=== PATIENT | male | born 1935 | race Caucasian/White ===

== ENCOUNTER 2016-09-04 05:31 | Inpatient (IN) | payer MEDICARE, OTHER ==
--- NOTE | 2016-09-04 05:37 | C.PDOC ---
History Of Present Illness patient called 911 because of shortness of breath., No cp or palpitations. reeived 1 duoneb and 125 mg IV solumedrol. No f/c/n/v Speaking in 3-4 word sentences Time Seen by Provider: 09/04/16 05:36 History Per: Patient, EMS History/Exam Limitations: no limitations Onset/Duration Of Symptoms: Hrs Current Symptoms Are (Timing): Worse Initiating Event: Upper Respiratory Illness Quality: Tightness Exacerbating Factor(s): Exertion, Coughing Current Respiratory Medications: See Home Med List Severity: Severe Pain Scale Rating Of: 8 Associated Symptoms: denies: Fever, Chills Reports Recently: Seen In ED, Treated By A Physician Recent travel outside of the [place]: No Additional History Per: EMS Past Medical History Reviewed: Historical Data, Nursing Documentation, Vital Signs Vital Signs: Last Vital Signs Temp 97.8 F 09/04/16 05:48 Pulse 108 H 09/04/16 05:48 Resp 28 H 09/04/16 06:05 BP 135/75 09/04/16 05:48 Pulse Ox 88 L 09/04/16 05:48 - Medical History PMH: Diabetes, HTN Denies: Arthritis, CHF, COPD, HIV, Hypercholesterolemia, Hypothyroidism, Chronic Kidney Disease, Rheumatoid Arthritis Family History: States: No Known Family Hx - Social History Hx Alcohol Use: No Hx Substance Use: No Review Of Systems Constitutional: Negative for: Fever, Chills ENT: Negative for: Throat Pain Cardiovascular: Positive for: Edema (trace). Negative for: Chest Pain, Palpitations Respiratory: Positive for: Cough, Shortness of Breath, Wheezing Gastrointestinal: Negative for: Nausea, Vomiting, Abdominal Pain Genitourinary: Negative for: Dysuria Musculoskeletal: Negative for: Back Pain Skin: Negative for: Rash, Lesions, Jaundice Neurological: Negative for: Weakness Psych: Negative for: Anxiety Physical Exam - Physical Exam Appears: In Acute Distress Skin: Warm, Dry Head: Normacephalic Oral Mucosa: Moist Neck: Supple Chest: Symmetrical Cardiovascular: Rhythm Regular Respiratory: Decreased Breath Sounds, No Rales, Rhonchi, Wheezing (at bases) Gastrointestinal/Abdominal: Soft, No Tenderness, No Distention Back: No Vertebral Tenderness Extremity: No Tenderness, Pedal Edema (trace) Extremity: Bilateral: Atraumatic, Normal Color And Temperature Neurological/Psych: Oriented x3, Normal Speech, Normal Cognition Gait: Unable To Assess ED Course And Treatment ECG: Interpreted By Me, Viewed By Me ECG Rhythm: Sinus Rhythm (102), Nonspecific Changes (old ant wall mi) Pulse Ox Interpretation: Normal - Radiology CXR: Interpreted by Me, Viewed By Me CXR Interpretation: Yes: Infiltrates (rll), Cardiomegaly, Other (chf) Progress Note: blood work, nebs Critical Care Time - Critical Care Note Total Time (in mins): 35 Documented critical care: time excludes all time spent performing seperately billable procedures. Disposition Counseled Patient/Family Regarding: Studies Performed, Diagnosis - Disposition Disposition Time: 07:00 Condition: UNKNOWN - Clinical Impression Clinical Impression: Pulmonary edema
[2016-09-04 05:39] VITALS: BMI 25.8
[2016-09-04] MEDS: Albuterol-Ipratrop 3 mg / 0.5 (3 ml) UD IH SCH ×3 (05:45→05:56)
[2016-09-04] MEDS ORDERED: Albuterol-Ipratrop 3 mg / 0.5 (3 ml) UD ONE (05:52)
[2016-09-04 06:16] LABS: ABG ALLEN TEST POS; DRAW SITE RRAD
[2016-09-04] MEDS ORDERED: Piperacillin/Tazobact 3.375 gm 100 ML IVPB STA (06:56)
[2016-09-04 06:59] LABS: POTASSIUM 5.5 mmol/L (3.6-5.2)
[2016-09-04 07:01] LABS: BILIRUBIN,TOTAL 0.7 mg/dL (0.2-1.3)
[2016-09-04 07:02] LABS: ALB/GLOB RATIO 1.2 (1.0-2.1); CALCIUM 8.2 mg/dl (8.6-10.4); MAGNESIUM 2.2 mg/dL (1.6-2.3); TOTAL PROTEIN 7.3 g/dL (6.3-8.3)
[2016-09-04 07:05] LABS: BASO # 0.1 K/uL (0.0-0.2); BASO % 0.4 % (0.0-2.0); EOS # 0.3 K/uL (0.0-0.7); EOS % 1.9 % (0.0-4.0); HEMATOCRIT 33.4 % (35.0-51.0); LYMPH % 20.1 % (20.0-40.0); MEAN CELL VOLUME 93.1 fL (80.0-94.0); MEAN CORPUSCULAR HEMOGLOBIN 31.1 pg (27.0-31.0); MEAN CORPUSCULAR HGB CONC 33.4 g/dL (33.0-37.0); MEAN PLATELET VOLUME 8.6 fL (7.2-11.7); MONO # 0.7 K/uL (0.0-0.8); MONO % 4.4 % (0.0-10.0); RED CELL DISTRIBUTION WIDTH 13.9 % (11.5-14.5); WHITE BLOOD COUNT 15.1 K/uL (4.8-10.8)
[2016-09-04 07:18] LABS: TROPONIN I 0.221 ng/mL (0.00-0.120)
[2016-09-04] MEDS ORDERED: Piperacillin/Tazobact 3.375 gm 100 ML IVPB ONE (07:22)
[2016-09-04] MEDS ORDERED: Sod Polystyrene Sulf 15 gm/60 ml Oral Susp PO ONE (07:29)
[2016-09-04] MEDS ORDERED: Sod Polystyrene Sulf 15 gm/60 ml Oral Susp ONE (08:15)
[2016-09-04 10:36] LABS: RBC URINE < 1 /hpf (0-3); URINE BACTERIA RARE (<OCC); URINE BILIRUBIN NEGATIVE (NEGATIVE); URINE COLOR Yellow (YELLOW); URINE GLUCOSE (UA) 1+ mg/dL (Normal); URINE KETONE NEGATIVE (NEGATIVE); URINE PROTEIN 2+ mg/dL (NEGATIVE); URINE UROBILINOGEN NORMAL mg/dL (0.2-1.0); WBC URINE 9 /hpf (0-5)
[2016-09-04 10:37] LABS: URINE BLOOD TRACE (NEGATIVE); URINE LEUKOCYTE ESTERASE 1+ Leu/uL (Negative)
--- NOTE | 2016-09-04 10:39 | CP.PCM.HP ---
History of Present Illness - History of Present Illness History of Present Illness: 81 years old male patient with past medical history of diabetes hypertension security meningioma brought in by 911 with complaint of shortness of breath required BiPAP support. No complaint of chest pain palpitation No fever vomiting diarrhea lower limb swelling Started on IV Solu-Medrol In ER chest x-ray suggestive of right lower lobe infiltrates, changes suggestive of CHF. Present on Admission - Present on Admission Any Indicators Present on Admission: No Past Patient History - Past Medical History & Family History Past Medical History?: Yes - Past Social History Smoking Status: Former Smoker - CARDIAC Hx Congestive Heart Failure: No Hx Hypercholesterolemia: No Hx Hypertension: Yes - PULMONARY Hx Chronic Obstructive Pulmonary Disease (COPD): No - NEUROLOGICAL HX Cerebrovascular Accident: No - HEENT Hx Cataracts: Yes (with surgery done and IOL) - RENAL Hx Chronic Kidney Disease: No - ENDOCRINE/METABOLIC Hx Hypothyroidism: No - HEMATOLOGICAL/ONCOLOGICAL Hx Human Immunodeficiency Virus (HIV): No - INTEGUMENTARY Hx Dermatological Problems: No - MUSCULOSKELETAL/RHEUMATOLOGICAL Hx Arthritis: No Hx Rheumatoid Arthritis: No - GASTROINTESTINAL Hx Gastrointestinal Disorders: No - GENITOURINARY/GYNECOLOGICAL Hx Genitourinary Disorders: No - PSYCHIATRIC Hx Substance Use: No - SURGICAL HISTORY Hx Surgeries: Yes Other/Comment: Bilateral neck surgery carotid artery - ANESTHESIA Hx Anesthesia: Yes Hx Anesthesia Reactions: No Meds Home Medications: Home Medication List Medication Instructions Recorded Confirmed Type Albuterol/Ipratropium [Duoneb 3 3 ml INH RQ6 09/23/16 Rx mg/0.5 mg (3 ml) UD] Aspirin 325 mg PO DAILY tab 09/23/16 Rx Carvedilol [Coreg] 3.125 mg PO BID tab 09/23/16 Rx Insulin Glargine, Recombina 30 unit SC DAILY unit 09/23/16 Rx [Lantus] Rosuvastatin Calcium [Crestor] 10 mg PO HS tab 09/23/16 Rx Allergies/Adverse Reactions: Allergies Allergy/AdvReac Type Severity Reaction Status Date / Time No Known Allergies Allergy Verified 10/06/16 18:56 Physical Exam - Constitutional Appears: Well - Head Exam Head Exam: ATRAUMATIC, NORMAL INSPECTION, NORMOCEPHALIC - Eye Exam Eye Exam: EOMI, Normal appearance, PERRL Pupil Exam: NORMAL ACCOMODATION, PERRL - ENT Exam ENT Exam: Mucous Membranes Moist, Normal Exam - Neck Exam Neck exam: Positive for: Normal Inspection - Respiratory Exam Respiratory Exam: Decreased Breath Sounds - Cardiovascular Exam Cardiovascular Exam: REGULAR RHYTHM, +S1, +S2 - GI/Abdominal Exam GI & Abdominal Exam: Diminished Bowel Sounds, Soft - Rectal Exam Rectal Exam: Deferred Results - Vital Signs Recent Vital Signs: Last Vital Signs Temp 98.3 F 09/04/16 10:19 Pulse 93 H 09/04/16 10:19 Resp 18 09/04/16 10:19 BP 143/70 09/04/16 10:19 Pulse Ox 100 09/04/16 10:19 - Labs Result Diagrams: 09/18/16 06:00 09/21/16 08:03 Labs: Laboratory Results - last 24 hr 09/04/16 10:19 Urine Color Yellow Urine Clarity Clear Urine pH 5.0 Ur Specific [place] 1.009 Urine Protein 2+ H Urine Glucose (UA) 1+ H Urine Ketones Negative Urine Blood Trace H Urine Nitrate Negative Urine Bilirubin Negative Urine Urobilinogen Normal Ur Leukocyte Esterase 1+ H Urine WBC (Auto) 9 H Urine RBC (Auto) < 1 Ur Squamous Epith Cells < 1 Urine Bacteria Rare Assessment & Plan (1) Cardiorenal syndrome with renal failure Status: Acute (2) DVT prophylaxis Status: Acute (3) ESRD (end stage renal disease) Status: Acute (4) HTN (hypertension), benign Status: Acute (5) NSTEMI (non-ST elevation myocardial infarction) Status: Acute (6) Renal failure Status: Acute (7) Respiratory failure with hypoxia Status: Acute (8) Syncope Status: Acute (9) Visit for wound check Status: Acute (10) Acute kidney injury superimposed on CKD Status: Chronic (11) Brain mass Status: Chronic (12) DM2 (diabetes mellitus, type 2) Status: Chronic (13) HTN (hypertension) Status: Chronic - Assessment and Plan (Free Text) Plan: avelox prilosec lovenox lasix duoneb advair insulin cardiac ada diet cardio consult pulm consult chest x ray ossible pneumonia iv lasix and other med as ordered
--- NOTE | 2016-09-04 11:26 | RAD ---
PROCEDURE: CHEST RADIOGRAPH, 1 VIEW HISTORY: SOB COMPARISON: No prior study available for comparison. FINDINGS: LUNGS: Diffuse bilateral predominately interstitial appearing infiltrates rosy. Rule out pneumonia versus pulmonary vascular congestion/ CHF. Underlying fibrosis not excluded PLEURA: No pneumothorax or pleural fluid seen. CARDIOVASCULAR: Normal. OSSEOUS STRUCTURES: No significant abnormalities. VISUALIZED UPPER ABDOMEN: Normal. OTHER FINDINGS: None. IMPRESSION: Diffuse bilateral predominately interstitial appearing infiltrates rosy. Rule out pneumonia versus pulmonary vascular congestion/ CHF. Underlying fibrosis not excluded
[2016-09-04] MEDS ORDERED: Sodium Chloride 0.9% 1,000 ML ONE (13:16)
[2016-09-04] MEDS: (Novolog) Insulin Aspart, Recombinant 100 u/ml 10 ml vial SC SCH ×2 (17:46→21:22)
[2016-09-04] MEDS: Albuterol-Ipratrop 3 mg / 0.5 (3 ml) UD INH SCH (20:56)
[2016-09-04] MEDS: Insulin Detemir 100 units/ml Vial (Levemir) SC SCH ×2 (21:22→22:00)
--- NOTE | 2016-09-04 23:23 | CP.PCM.CON ---
History of Present Illness - History of Present Illness History of Present Illness: 81 year old with DM, HTN, CKD, meningeoma, admitted with P edema, responded to treatment. however his BNP, TNI were elevated, no CP, no acute EKG changes. last Echo about 1year with NL LV no , with NSTEMI on asa b tony, statin f/ u echo Review of Systems - Review of Systems Systems not reviewed;Unavailable: Respiratory Distress - Constitutional Constitutional: Anorexia - EENT Eyes: absent: Discharge Ears: absent: Ear Discharge Nose/Mouth/Throat: absent: Epistaxis - Cardiovascular Cardiovascular: Diaphoresis. absent: Acrocyanosis, Chest Pain, Leg Edema, Palpitations, Syncope - Respiratory Respiratory: Cough, Dyspnea. absent: Hemoptysis - Gastrointestinal Gastrointestinal: absent: Diarrhea, Hematochezia, Vomiting - Genitourinary Genitourinary: absent: Change in Urinary Stream Past Patient History - Past Medical History & Family History Past Medical History?: Yes - Past Social History Smoking Status: Never Smoked - CARDIAC Hx Cardiac Disorders: No Hx Congestive Heart Failure: No Hx Hypercholesterolemia: No Hx Hypertension: Yes - PULMONARY Hx Respiratory Disorders: No Hx Chronic Obstructive Pulmonary Disease (COPD): No - NEUROLOGICAL Hx Neurological Disorder: No HX Cerebrovascular Accident: No - HEENT Hx HEENT Problems: Yes Hx Cataracts: Yes (with surgery done and IOL) - RENAL Hx Chronic Kidney Disease: No - ENDOCRINE/METABOLIC Hx Endocrine Disorders: No - HEMATOLOGICAL/ONCOLOGICAL Hx Blood Disorders: No Hx Human Immunodeficiency Virus (HIV): No - INTEGUMENTARY Hx Dermatological Problems: No - MUSCULOSKELETAL/RHEUMATOLOGICAL Hx Musculoskeletal Disorders: No Hx Arthritis: No Hx Rheumatoid Arthritis: No - GASTROINTESTINAL Hx Gastrointestinal Disorders: No - GENITOURINARY/GYNECOLOGICAL Hx Genitourinary Disorders: No - PSYCHIATRIC Hx Substance Use: No - SURGICAL HISTORY Hx Surgeries: Yes Other/Comment: Bilateral neck surgery carotid artery - ANESTHESIA Hx Anesthesia: Yes Hx Anesthesia Reactions: No Meds Allergies/Adverse Reactions: Allergies Allergy/AdvReac Type Severity Reaction Status Date / Time No Known Allergies Allergy Verified 09/04/16 06:02 - Medications Medications: Current Medications Albuterol/Ipratropium (Duoneb 3 Mg/0.5 Mg (3 Ml) Ud) 3 ml INH RQ6 [facility] Last Admin: 09/04/16 20:56 Dose: 3 ml Allopurinol (Zyloprim) 100 mg PO DAILY [facility] Amlodipine Besylate (Norvasc) 5 mg PO DAILY [facility] Aspirin (Aspirin Chewable) 81 mg PO DAILY [facility] Carvedilol (Coreg) 12.5 mg PO BID [facility] Last Admin: 09/04/16 17:40 Dose: 12.5 mg Cyclobenzaprine HCl (Flexeril) 10 mg PO BID [facility] Last Admin: 09/04/16 17:40 Dose: 10 mg Duloxetine HCl (Cymbalta) 30 mg PO DAILY [facility] Enoxaparin Sodium (Lovenox) 30 mg SC DAILY [facility] Escitalopram Oxalate (Lexapro) 10 mg PO DAILY [facility] Famotidine (Pepcid) 20 mg PO DAILY [facility] Furosemide (Lasix) 80 mg IVP DAILY [facility] Gabapentin (Neurontin) 300 mg PO TID [facility] Last Admin: 09/04/16 17:40 Dose: 300 mg Moxifloxacin HCl (Avelox Iv 400mg/250ml Ns) 250 mls @ 167 mls/hr IVPB Q24H [facility] Insulin Aspart (Novolog) 0 unit SC ACHS [facility] PRN Reason: Protocol Last Admin: 09/04/16 21:22 Dose: 6 unit Insulin Detemir (Levemir) 16 unit SC [facility] Last Admin: 09/04/16 21:22 Dose: 1 unit Isosorbide Mononitrate (Imdur) 60 mg PO DAILY [facility] Levothyroxine Sodium (Synthroid) 50 mcg PO DAILY@0630 [facility] Pantoprazole Sodium (Protonix Ec Tab) 40 mg PO DAILY [facility] Rosuvastatin Calcium (Crestor) 10 mg PO HS [facility] Last Admin: 09/04/16 21:22 Dose: 10 mg Sevelamer Carbonate (Renvela) 800 mg PO TID [facility] Last Admin: 09/04/16 17:40 Dose: 800 mg Physical Exam - Constitutional Appears: Non-toxic - Head Exam Head Exam: ATRAUMATIC - Eye Exam Eye Exam: EOMI - ENT Exam ENT Exam: Mucous Membranes Moist - Neck Exam Neck exam: Negative for: Lymphadenopathy, Thyromegaly - Respiratory Exam Respiratory Exam: Prolonged Expiratory Phase, Rales, Wheezes - Cardiovascular Exam Cardiovascular Exam: REGULAR RHYTHM, Systolic Murmur - GI/Abdominal Exam GI & Abdominal Exam: Normal Bowel Sounds. absent: Organomegaly - Rectal Exam Rectal Exam: Deferred - Extremities Exam Extremities exam: Positive for: normal capillary refill. Negative for: calf tenderness - Neurological Exam Neurological exam: Alert, Oriented x3 - Psychiatric Exam Psychiatric exam: Normal Mood - Skin Skin Exam: Dry Results - Vital Signs Recent Vital Signs: Last Vital Signs Temp 98.3 F 09/04/16 10:19 Pulse 104 H 09/04/16 20:59 Resp 22 09/04/16 17:22 BP 148/76 09/04/16 22:25 Pulse Ox 92 L 09/04/16 17:22 - Labs Result Diagrams: 09/07/16 21:04 09/07/16 21:04 Labs: Laboratory Results - last 24 hr 09/04/16 09/04/16 09/04/16 10:19 15:28 17:36 POC Glucose (mg/dL) 422 H* Total Creatine Kinase 107 CK-MB (Mass) 4.99 H Troponin I, Quant 1.9300 H* Urine Color Yellow Urine Clarity Clear Urine pH 5.0 Ur Specific [place] 1.009 Urine Protein 2+ H Urine Glucose (UA) 1+ H Urine Ketones Negative Urine Blood Trace H Urine Nitrate Negative Urine Bilirubin Negative Urine Urobilinogen Normal Ur Leukocyte Esterase 1+ H Urine WBC (Auto) 9 H Urine RBC (Auto) < 1 Ur Squamous Epith Cells < 1 Urine Bacteria Rare 09/04/16 21:09 POC Glucose (mg/dL) 468 H* Total Creatine Kinase CK-MB (Mass) Troponin I, Quant Urine Color Urine Clarity Urine pH Ur Specific [place] Urine Protein Urine Glucose (UA) Urine Ketones Urine Blood Urine Nitrate Urine Bilirubin Urine Urobilinogen Ur Leukocyte Esterase Urine WBC (Auto) Urine RBC (Auto) Ur Squamous Epith Cells Urine Bacteria Assessment & Plan (1) NSTEMI (non-ST elevation myocardial infarction) Status: Acute Comment: medical treatment, observe CKD (2) Pulmonary edema Status: Acute Comment: proble acute over chronic LV diastolic r/o syst. failure (3) Acute kidney injury superimposed on CKD Status: Chronic (4) Brain mass Status: Chronic (5) DM2 (diabetes mellitus, type 2) Status: Chronic (6) HTN (hypertension) Status: Chronic
[2016-09-05] MEDS: Albuterol-Ipratrop 3 mg / 0.5 (3 ml) UD INH SCH ×4 (01:16→19:57)
[2016-09-05] MEDS ORDERED: (Novolog) Insulin Aspart, Recombinant 100 u/ml 10 ml vial SC ONE (02:47)
[2016-09-05] MEDS: Levothyroxine 50 MCG TAB PO SCH (06:47)
--- NOTE | 2016-09-05 07:42 | CP.PCM.PN ---
Subjective - Date & Time of Evaluation Date of Evaluation: 09/05/16 Time of Evaluation: 05:00 - Subjective Subjective: 81 M a/w interstitial lung edema, NSTEMI, CRI, uncontrolled DM, ? brain mass, was evaluated as getting hypoxic when removing NRB mask for coughing and then being hypoxic. CXR reviewed overnight pt also been given lasix x2 by resident and on exam diffuse b/l wheezing. Patient initially started on Bipap 12/6/100% then titrated to 12/6/50%, tidal volume about 450, now comfortable, no cp, overnight urinated about 700ml. Repeat CXR still shows interstitial edema, will give schedule lasix early. Primary team will be notified of the events by the nursing. Objective - Vital Signs/Intake and Output Vital Signs (last 24 hours): Temp Pulse Resp BP Pulse Ox 97.6 F 97 H 20 134/75 97 09/05/16 00:30 09/05/16 06:32 09/05/16 00:30 09/05/16 03:40 09/05/16 03:40 Intake and Output: 09/05/16 09/05/16 06:59 18:59 Intake Total 350 Output Total 1450 850 Balance -1450 -500 - Medications Medications: Current Medications Albuterol/Ipratropium (Duoneb 3 Mg/0.5 Mg (3 Ml) Ud) 3 ml INH RQ6 [facility] Last Admin: 09/05/16 01:16 Dose: 3 ml Allopurinol (Zyloprim) 100 mg PO DAILY [facility] Amlodipine Besylate (Norvasc) 5 mg PO DAILY [facility] Aspirin (Aspirin Chewable) 81 mg PO DAILY [facility] Carvedilol (Coreg) 12.5 mg PO BID [facility] Last Admin: 09/04/16 17:40 Dose: 12.5 mg Cyclobenzaprine HCl (Flexeril) 10 mg PO BID [facility] Last Admin: 09/04/16 17:40 Dose: 10 mg Duloxetine HCl (Cymbalta) 30 mg PO DAILY [facility] Enoxaparin Sodium (Lovenox) 30 mg SC DAILY [facility] Escitalopram Oxalate (Lexapro) 10 mg PO DAILY [facility] Famotidine (Pepcid) 20 mg PO DAILY [facility] Furosemide (Lasix) 80 mg IVP DAILY [facility] Gabapentin (Neurontin) 300 mg PO TID [facility] Last Admin: 04/07/17 17:40 Dose: 300 mg Moxifloxacin HCl (Avelox Iv 400mg/250ml Ns) 250 mls @ 167 mls/hr IVPB Q24H [facility] Insulin Aspart (Novolog) 0 unit SC ACHS [facility] PRN Reason: Protocol Last Admin: 09/04/16 21:22 Dose: 6 unit Insulin Detemir (Levemir) 16 unit SC [facility] Last Admin: 09/04/16 22:00 Dose: 16 unit Isosorbide Mononitrate (Imdur) 60 mg PO DAILY [facility] Levothyroxine Sodium (Synthroid) 50 mcg PO DAILY@0630 [facility] Last Admin: 09/05/16 06:47 Dose: 50 mcg Pantoprazole Sodium (Protonix Ec Tab) 40 mg PO DAILY [facility] Rosuvastatin Calcium (Crestor) 10 mg PO [facility] Last Admin: 09/04/16 23:52 Dose: Not Given Sevelamer Carbonate (Renvela) 800 mg PO TID [facility] Last Admin: 09/04/16 17:40 Dose: 800 mg - Labs Labs: PT 11.2 SECONDS (9.7-12.2) 09/04/16 06:40 INR 1.0 09/04/16 06:40 APTT 33 SECONDS (21-34) 09/04/16 06:40
[2016-09-05] MEDS: (Novolog) Insulin Aspart, Recombinant 100 u/ml 10 ml vial SC SCH ×4 (08:00→21:37)
[2016-09-05] MEDS ORDERED: INSULIN LISPRO 2 UNIT SQ SCH (10:00)
--- NOTE | 2016-09-05 10:03 | RAD ---
HISTORY: sob COMPARISON: 09/04/2016 FINDINGS: LUNGS: Diffuse prominent increased interstitial lung markings suggestive for moderate to severe venous congestion and/or diffuse increased interstitial infiltrates. Question small bilateral pleural effusions. PLEURA: As above. CARDIOVASCULAR: Cardiomegaly. Calcification at the aortic knob. OSSEOUS STRUCTURES: No significant abnormalities. VISUALIZED UPPER ABDOMEN: Normal. OTHER FINDINGS: None. IMPRESSION: Diffuse prominent increased interstitial lung markings suggestive for moderate to severe venous congestion and/or diffuse increased interstitial infiltrates. Question small bilateral pleural effusions.
[2016-09-05] MEDS: Pantoprazole 40 mg EC Tab PO SCH (10:04)
[2016-09-05] MEDS: Enoxaparin 30 mg Syringe SC SCH (10:05)
--- NOTE | 2016-09-05 15:01 | CP.PCM.PN ---
Subjective - Date & Time of Evaluation Date of Evaluation: 09/05/16 Time of Evaluation: 02:40 - Subjective Subjective: clinically same s/p dr iqbal Objective - Vital Signs/Intake and Output Vital Signs (last 24 hours): Temp Pulse Resp BP Pulse Ox 97.5 F L 94 H 18 150/78 96 09/05/16 07:40 09/05/16 07:40 09/05/16 07:40 09/05/16 10:06 09/05/16 07:40 Intake and Output: 09/05/16 09/05/16 06:59 18:59 Intake Total 350 Output Total 1450 1700 Balance -1450 -1350 - Medications Medications: Current Medications Albuterol/Ipratropium (Duoneb 3 Mg/0.5 Mg (3 Ml) Ud) 3 ml INH RQ6 [facility] Last Admin: 09/05/16 07:30 Dose: 3 ml Allopurinol (Zyloprim) 100 mg PO DAILY [facility] Last Admin: 09/05/16 10:04 Dose: 100 mg Amlodipine Besylate (Norvasc) 5 mg PO DAILY [facility] Last Admin: 09/05/16 10:00 Dose: 5 mg Aspirin (Aspirin Chewable) 81 mg PO DAILY [facility] Last Admin: 09/05/16 10:04 Dose: 81 mg Carvedilol (Coreg) 12.5 mg PO BID [facility] Last Admin: 09/05/16 10:03 Dose: 12.5 mg Cyclobenzaprine HCl (Flexeril) 10 mg PO BID [facility] Last Admin: 09/05/16 10:03 Dose: 10 mg Duloxetine HCl (Cymbalta) 30 mg PO DAILY [facility] Last Admin: 09/05/16 10:06 Dose: 30 mg Enoxaparin Sodium (Lovenox) 30 mg SC DAILY [facility] Last Admin: 09/05/16 10:05 Dose: 30 mg Escitalopram Oxalate (Lexapro) 10 mg PO DAILY [facility] Last Admin: 09/05/16 10:06 Dose: 10 mg Famotidine (Pepcid) 20 mg PO DAILY [facility] Last Admin: 09/05/16 10:03 Dose: 20 mg Furosemide (Lasix) 80 mg IVP DAILY [facility] Last Admin: 09/05/16 10:06 Dose: 80 mg Gabapentin (Neurontin) 300 mg PO TID [facility] Last Admin: 09/05/16 13:59 Dose: 300 mg Moxifloxacin HCl (Avelox Iv 400mg/250ml Ns) 250 mls @ 167 mls/hr IVPB Q24H [facility] Insulin Aspart (Novolog) 0 unit SC [facility] PRN Reason: Protocol Last Admin: 09/05/16 11:30 Dose: 6 unit Insulin Detemir (Levemir) 16 unit SC [facility] Last Admin: 09/04/16 22:00 Dose: 16 unit Isosorbide Mononitrate (Imdur) 60 mg PO DAILY [facility] Last Admin: 09/05/16 10:05 Dose: 60 mg Levothyroxine Sodium (Synthroid) 50 mcg PO DAILY@0630 [facility] Last Admin: 09/05/16 06:47 Dose: 50 mcg Pantoprazole Sodium (Protonix Ec Tab) 40 mg PO DAILY [facility] Last Admin: 09/05/16 10:04 Dose: 40 mg Rosuvastatin Calcium (Crestor) 10 mg PO [facility] Last Admin: 09/04/16 23:52 Dose: Not Given Sevelamer Carbonate (Renvela) 800 mg PO TID [facility] Last Admin: 09/05/16 13:58 Dose: 800 mg - Labs Labs: PT 11.2 SECONDS (9.7-12.2) 09/04/16 06:40 INR 1.0 09/04/16 06:40 APTT 33 SECONDS (21-34) 09/04/16 06:40 - Constitutional Appears: Well - Head Exam Head Exam: ATRAUMATIC, NORMAL INSPECTION, NORMOCEPHALIC - Eye Exam Eye Exam: EOMI, Normal appearance, PERRL Pupil Exam: NORMAL ACCOMODATION, PERRL - ENT Exam ENT Exam: Mucous Membranes Moist, Normal Exam - Neck Exam Neck Exam: Full ROM, Normal Inspection. absent: Lymphadenopathy - Respiratory Exam Respiratory Exam: Decreased Breath Sounds - Cardiovascular Exam Cardiovascular Exam: REGULAR RHYTHM, +S1, +S2 - GI/Abdominal Exam GI & Abdominal Exam: Soft, Diminished Bowel Sounds - Rectal Exam Rectal Exam: Deferred - Neurological Exam Neurological Exam: Alert, Oriented x3 Assessment and Plan (1) Cardiorenal syndrome with renal failure Status: Acute (2) DVT prophylaxis Status: Acute (3) ESRD (end stage renal disease) Status: Acute (4) HTN (hypertension), benign Status: Acute (5) NSTEMI (non-ST elevation myocardial infarction) Status: Acute (6) Renal failure Status: Acute (7) Respiratory failure with hypoxia Status: Acute (8) Syncope Status: Acute (9) Visit for wound check Status: Acute (10) Acute kidney injury superimposed on CKD Status: Chronic (11) Brain mass Status: Chronic (12) DM2 (diabetes mellitus, type 2) Status: Chronic (13) HTN (hypertension) Status: Chronic - Assessment and Plan (Free Text) Plan: dr farida rutledge mx as ordered f/u labs bipap support as required
--- NOTE | 2016-09-05 16:10 | CP.PCM.PN ---
Subjective - Date & Time of Evaluation Date of Evaluation: 09/05/16 Time of Evaluation: 14:00 - Subjective Subjective: With shortness of breath overnight observe follow-up with echo, on oxygen supplement follow-up with pulmonary Objective - Vital Signs/Intake and Output Vital Signs (last 24 hours): Temp Pulse Resp BP Pulse Ox 97.3 F L 89 19 138/65 97 09/05/16 16:08 09/05/16 16:08 09/05/16 16:08 09/05/16 16:08 09/05/16 16:08 Intake and Output: 09/05/16 09/05/16 06:59 18:59 Intake Total 350 Output Total 1450 1700 Balance -1450 -1350 - Medications Medications: Current Medications Albuterol/Ipratropium (Duoneb 3 Mg/0.5 Mg (3 Ml) Ud) 3 ml INH RQ6 [facility] Last Admin: 09/05/16 07:30 Dose: 3 ml Allopurinol (Zyloprim) 100 mg PO DAILY [facility] Last Admin: 09/05/16 10:04 Dose: 100 mg Amlodipine Besylate (Norvasc) 5 mg PO DAILY [facility] Last Admin: 09/05/16 10:00 Dose: 5 mg Aspirin (Aspirin Chewable) 81 mg PO DAILY [facility] Last Admin: 09/05/16 10:04 Dose: 81 mg Carvedilol (Coreg) 12.5 mg PO BID [facility] Last Admin: 09/05/16 10:03 Dose: 12.5 mg Cyclobenzaprine HCl (Flexeril) 10 mg PO BID [facility] Last Admin: 09/05/16 10:03 Dose: 10 mg Duloxetine HCl (Cymbalta) 30 mg PO DAILY [facility] Last Admin: 09/05/16 10:06 Dose: 30 mg Enoxaparin Sodium (Lovenox) 30 mg SC DAILY [facility] Last Admin: 09/05/16 10:05 Dose: 30 mg Escitalopram Oxalate (Lexapro) 10 mg PO DAILY [facility] Last Admin: 09/05/16 10:06 Dose: 10 mg Famotidine (Pepcid) 20 mg PO DAILY [facility] Last Admin: 09/05/16 10:03 Dose: 20 mg Furosemide (Lasix) 80 mg IVP DAILY [facility] Last Admin: 09/05/16 10:06 Dose: 80 mg Gabapentin (Neurontin) 300 mg PO TID [facility] Last Admin: 09/05/16 13:59 Dose: 300 mg Moxifloxacin HCl (Avelox Iv 400mg/250ml Ns) 250 mls @ 167 mls/hr IVPB Q24H [facility] Insulin Aspart (Novolog) 0 unit SC ACHS [facility] PRN Reason: Protocol Last Admin: 09/05/16 11:30 Dose: 6 unit Insulin Detemir (Levemir) 16 unit SC [facility] Last Admin: 09/04/16 22:00 Dose: 16 unit Isosorbide Mononitrate (Imdur) 60 mg PO DAILY [facility] Last Admin: 09/05/16 10:05 Dose: 60 mg Levothyroxine Sodium (Synthroid) 50 mcg PO DAILY@0630 [facility] Last Admin: 09/05/16 06:47 Dose: 50 mcg Pantoprazole Sodium (Protonix Ec Tab) 40 mg PO DAILY [facility] Last Admin: 09/05/16 10:04 Dose: 40 mg Rosuvastatin Calcium (Crestor) 10 mg PO [facility] Last Admin: 09/04/16 23:52 Dose: Not Given Sevelamer Carbonate (Renvela) 800 mg PO TID [facility] Last Admin: 09/05/16 13:58 Dose: 800 mg - Labs Labs: PT 11.2 SECONDS (9.7-12.2) 09/04/16 06:40 INR 1.0 09/04/16 06:40 APTT 33 SECONDS (21-34) 09/04/16 06:40 - Constitutional Appears: Non-toxic - Head Exam Head Exam: ATRAUMATIC - Eye Exam Eye Exam: EOMI - ENT Exam ENT Exam: Mucous Membranes Moist - Neck Exam Neck Exam: absent: Lymphadenopathy, Thyromegaly - Respiratory Exam Respiratory Exam: Prolonged Expiratory Phase. absent: Rales - Cardiovascular Exam Cardiovascular Exam: REGULAR RHYTHM, Murmur - GI/Abdominal Exam GI & Abdominal Exam: Normal Bowel Sounds. absent: Organomegaly - Rectal Exam Rectal Exam: Deferred - Extremities Exam Extremities Exam: Normal Capillary Refill. absent: Calf Tenderness - Neurological Exam Neurological Exam: Alert, Oriented x3 - Psychiatric Exam Psychiatric exam: Normal Mood - Skin Skin Exam: Dry Assessment and Plan (1) NSTEMI (non-ST elevation myocardial infarction) Status: Acute (2) Pulmonary edema Status: Acute (3) Acute kidney injury superimposed on CKD Status: Chronic (4) Brain mass Status: Chronic (5) DM2 (diabetes mellitus, type 2) Status: Chronic (6) HTN (hypertension) Status: Chronic
[2016-09-05] MEDS: Moxifloxacin IV 400mg/250ml NS 250 ML IVPB SCH (16:30)
--- NOTE | 2016-09-05 20:27 | CP.PCM.CON ---
History of Present Illness - History of Present Illness History of Present Illness: reason for consultation: shortness of breath requiring BiPAP 81 year old with DM, HTN, CKD, meningeoma, admitted with Shortness of breath requiring BiPAP. Patient found to have elevated troponins and seen by cardiology with diagnosis of non-ST elevation IN. Patient complaining of slight cough but denies fever or chills, denies chest pain. Chest x-ray consistent with CHF. Review of Systems - Review of Systems All systems: reviewed and no additional remarkable complaints except (shortness of breath requiring BiPAP) Past Patient History - Past Medical History & Family History Past Medical History?: Yes - Past Social History Smoking Status: Never Smoked - CARDIAC Hx Cardiac Disorders: No Hx Congestive Heart Failure: No Hx Hypercholesterolemia: No Hx Hypertension: Yes - PULMONARY Hx Respiratory Disorders: No Hx Chronic Obstructive Pulmonary Disease (COPD): No - NEUROLOGICAL Hx Neurological Disorder: No HX Cerebrovascular Accident: No - HEENT Hx HEENT Problems: Yes Hx Cataracts: Yes (with surgery done and IOL) - RENAL Hx Chronic Kidney Disease: No - ENDOCRINE/METABOLIC Hx Endocrine Disorders: No - HEMATOLOGICAL/ONCOLOGICAL Hx Blood Disorders: No Hx Human Immunodeficiency Virus (HIV): No - INTEGUMENTARY Hx Dermatological Problems: No - MUSCULOSKELETAL/RHEUMATOLOGICAL Hx Musculoskeletal Disorders: No Hx Arthritis: No Hx Rheumatoid Arthritis: No - GASTROINTESTINAL Hx Gastrointestinal Disorders: No - GENITOURINARY/GYNECOLOGICAL Hx Genitourinary Disorders: No - PSYCHIATRIC Hx Substance Use: No - SURGICAL HISTORY Hx Surgeries: Yes Other/Comment: Bilateral neck surgery carotid artery - ANESTHESIA Hx Anesthesia: Yes Hx Anesthesia Reactions: No Meds Allergies/Adverse Reactions: Allergies Allergy/AdvReac Type Severity Reaction Status Date / Time No Known Allergies Allergy Verified 09/04/16 06:02 - Medications Medications: Current Medications Albuterol/Ipratropium (Duoneb 3 Mg/0.5 Mg (3 Ml) Ud) 3 ml INH RQ6 [facility] Last Admin: 09/05/16 19:57 Dose: 3 ml Allopurinol (Zyloprim) 100 mg PO DAILY [facility] Last Admin: 09/05/16 10:04 Dose: 100 mg Amlodipine Besylate (Norvasc) 5 mg PO DAILY [facility] Last Admin: 09/05/16 10:00 Dose: 5 mg Aspirin (Aspirin Chewable) 81 mg PO DAILY [facility] Last Admin: 04/08/17 10:04 Dose: 81 mg Carvedilol (Coreg) 12.5 mg PO BID [facility] Last Admin: 09/05/16 17:24 Dose: 12.5 mg Cyclobenzaprine HCl (Flexeril) 10 mg PO BID [facility] Last Admin: 09/05/16 17:24 Dose: 10 mg Duloxetine HCl (Cymbalta) 30 mg PO DAILY [facility] Last Admin: 09/05/16 10:06 Dose: 30 mg Enoxaparin Sodium (Lovenox) 30 mg SC DAILY [facility] Last Admin: 09/05/16 10:05 Dose: 30 mg Escitalopram Oxalate (Lexapro) 10 mg PO DAILY [facility] Last Admin: 09/05/16 10:06 Dose: 10 mg Famotidine (Pepcid) 20 mg PO DAILY [facility] Last Admin: 09/05/16 10:03 Dose: 20 mg Furosemide (Lasix) 80 mg IVP DAILY [facility] Last Admin: 09/05/16 10:06 Dose: 80 mg Gabapentin (Neurontin) 300 mg PO TID [facility] Last Admin: 09/05/16 17:24 Dose: 300 mg Moxifloxacin HCl (Avelox Iv 400mg/250ml Ns) 250 mls @ 167 mls/hr IVPB Q24H [facility] Last Admin: 09/05/16 16:30 Dose: 167 mls/hr Insulin Aspart (Novolog) 0 unit SC [facility] PRN Reason: Protocol Last Admin: 09/05/16 17:25 Dose: 5 unit Insulin Detemir (Levemir) 16 unit SC [facility] Last Admin: 09/04/16 22:00 Dose: 16 unit Isosorbide Mononitrate (Imdur) 60 mg PO DAILY [facility] Last Admin: 09/05/16 10:05 Dose: 60 mg Levothyroxine Sodium (Synthroid) 50 mcg PO DAILY@0630 [facility] Last Admin: 09/05/16 06:47 Dose: 50 mcg Pantoprazole Sodium (Protonix Ec Tab) 40 mg PO DAILY [facility] Last Admin: 09/05/16 10:04 Dose: 40 mg Rosuvastatin Calcium (Crestor) 10 mg PO HS [facility] Last Admin: 09/04/16 23:52 Dose: Not Given Sevelamer Carbonate (Renvela) 800 mg PO TID [facility] Last Admin: 09/05/16 17:24 Dose: 800 mg Physical Exam - Head Exam Head Exam: ATRAUMATIC, NORMOCEPHALIC - Eye Exam Eye Exam: Normal appearance - ENT Exam ENT Exam: Mucous Membranes Moist - Neck Exam Neck exam: Positive for: Normal Inspection - Respiratory Exam Respiratory Exam: Decreased Breath Sounds, Rales - Cardiovascular Exam Cardiovascular Exam: REGULAR RHYTHM - GI/Abdominal Exam GI & Abdominal Exam: Normal Bowel Sounds, Soft - Neurological Exam Neurological exam: Alert, Oriented x3 Results - Vital Signs Recent Vital Signs: Last Vital Signs Temp 97.3 F L 09/05/16 16:08 Pulse 89 09/05/16 16:08 Resp 19 09/05/16 16:08 BP 138/65 09/05/16 17:24 Pulse Ox 97 09/05/16 16:08 - Labs Result Diagrams: 09/07/16 09:10 09/07/16 09:10 Labs: Laboratory Results - last 24 hr 09/04/16 09/05/16 09/05/16 21:09 02:38 04:12 POC Glucose (mg/dL) 468 H* 426 H* 437 H* Total Creatine Kinase CK-MB (Mass) Troponin I, Quant 09/05/16 09/05/16 09/05/16 06:43 07:13 11:17 POC Glucose (mg/dL) 385 H 423 H* Total Creatine Kinase 104 CK-MB (Mass) 5.18 H Troponin I, Quant 2.1200 H* 09/05/16 16:26 POC Glucose (mg/dL) 385 H Total Creatine Kinase CK-MB (Mass) Troponin I, Quant Assessment & Plan (1) Respiratory failure with hypoxia Status: Acute Comment: continue BiPAP and follow-up ABG. Continue Lasix, antibiotics. Being followed by cardiology for elevated troponins. Follow-up culture and sensitivity. Follow up ABG and chest x-ray (2) NSTEMI (non-ST elevation myocardial infarction) Status: Acute (3) Acute kidney injury superimposed on CKD Status: Chronic
[2016-09-05] MEDS: Insulin Detemir 100 units/ml Vial (Levemir) SC SCH (21:37)
[2016-09-05] MEDS ORDERED: (Novolog) Insulin Aspart, Recombinant 100 u/ml 10 ml vial SC STA (21:56)
[2016-09-06] MEDS: Albuterol-Ipratrop 3 mg / 0.5 (3 ml) UD INH SCH ×4 (01:41→19:47)
[2016-09-06] MEDS: Levothyroxine 50 MCG TAB PO SCH (05:56)
[2016-09-06] MEDS: (Novolog) Insulin Aspart, Recombinant 100 u/ml 10 ml vial SC SCH ×4 (08:09→22:50)
[2016-09-06] MEDS: Enoxaparin 30 mg Syringe SC SCH (09:24)
[2016-09-06] MEDS: Pantoprazole 40 mg EC Tab PO SCH (09:24)
[2016-09-06] MEDS: Moxifloxacin IV 400mg/250ml NS 250 ML IVPB SCH (14:46)
--- NOTE | 2016-09-06 15:32 | CP.PCM.PN ---
Subjective - Date & Time of Evaluation Date of Evaluation: 09/06/16 Time of Evaluation: 10:00 - Subjective Subjective: afebrile pt clinically same dr iqbal and dr mercer following Objective - Vital Signs/Intake and Output Vital Signs (last 24 hours): Temp Pulse Resp BP Pulse Ox 98.6 F 88 18 150/76 93 L 09/06/16 07:40 09/06/16 12:30 09/06/16 07:40 09/06/16 09:24 09/06/16 07:40 Intake and Output: 09/06/16 09/06/16 06:59 18:59 Intake Total 560 480 Output Total 750 650 Balance -190 -170 - Medications Medications: Current Medications Albuterol/Ipratropium (Duoneb 3 Mg/0.5 Mg (3 Ml) Ud) 3 ml INH RQ6 [facility] Last Admin: 09/06/16 13:15 Dose: 3 ml Allopurinol (Zyloprim) 100 mg PO DAILY [facility] Last Admin: 09/06/16 09:24 Dose: 100 mg Amlodipine Besylate (Norvasc) 5 mg PO DAILY [facility] Last Admin: 09/06/16 09:27 Dose: 5 mg Aspirin (Aspirin Chewable) 81 mg PO DAILY [facility] Last Admin: 09/06/16 09:24 Dose: 81 mg Carvedilol (Coreg) 12.5 mg PO BID [facility] Last Admin: 09/06/16 09:24 Dose: 12.5 mg Cyclobenzaprine HCl (Flexeril) 10 mg PO BID [facility] Last Admin: 09/06/16 09:24 Dose: 10 mg Duloxetine HCl (Cymbalta) 30 mg PO DAILY [facility] Last Admin: 09/06/16 09:24 Dose: 30 mg Enoxaparin Sodium (Lovenox) 30 mg SC DAILY [facility] Last Admin: 09/06/16 09:24 Dose: 30 mg Escitalopram Oxalate (Lexapro) 10 mg PO DAILY [facility] Last Admin: 09/06/16 09:24 Dose: 10 mg Famotidine (Pepcid) 20 mg PO DAILY [facility] Last Admin: 09/06/16 09:24 Dose: 20 mg Furosemide (Lasix) 80 mg IVP DAILY [facility] Last Admin: 09/06/16 09:23 Dose: 80 mg Gabapentin (Neurontin) 300 mg PO TID [facility] Last Admin: 09/06/16 13:39 Dose: 300 mg Moxifloxacin HCl (Avelox Iv 400mg/250ml Ns) 250 mls @ 167 mls/hr IVPB Q24H [facility] Last Admin: 09/06/16 14:46 Dose: 167 mls/hr Insulin Aspart (Novolog) 0 unit SC ACHS [facility] PRN Reason: Protocol Last Admin: 09/06/16 12:03 Dose: 2 unit Insulin Detemir (Levemir) 16 unit SC [facility] Last Admin: 09/05/16 21:37 Dose: 16 unit Isosorbide Mononitrate (Imdur) 60 mg PO DAILY [facility] Last Admin: 09/06/16 09:24 Dose: 60 mg Levothyroxine Sodium (Synthroid) 50 mcg PO DAILY@0630 [facility] Last Admin: 09/06/16 05:56 Dose: 50 mcg Pantoprazole Sodium (Protonix Ec Tab) 40 mg PO DAILY [facility] Last Admin: 09/06/16 09:24 Dose: 40 mg Rosuvastatin Calcium (Crestor) 10 mg PO [facility] Last Admin: 09/05/16 21:38 Dose: 10 mg Sevelamer Carbonate (Renvela) 800 mg PO TID [facility] Last Admin: 09/06/16 13:39 Dose: 800 mg - Labs Labs: PT 11.2 SECONDS (9.7-12.2) 09/04/16 06:40 INR 1.0 09/04/16 06:40 APTT 33 SECONDS (21-34) 09/04/16 06:40 - Constitutional Appears: No Acute Distress - Head Exam Head Exam: ATRAUMATIC, NORMAL INSPECTION, NORMOCEPHALIC - Eye Exam Eye Exam: EOMI, Normal appearance, PERRL Pupil Exam: NORMAL ACCOMODATION, PERRL - ENT Exam ENT Exam: Mucous Membranes Moist - Neck Exam Neck Exam: Full ROM - Respiratory Exam Respiratory Exam: Decreased Breath Sounds - Cardiovascular Exam Cardiovascular Exam: REGULAR RHYTHM, +S1, +S2 - GI/Abdominal Exam GI & Abdominal Exam: Soft, Diminished Bowel Sounds - Rectal Exam Rectal Exam: Deferred - Neurological Exam Neurological Exam: Alert, Awake, Oriented x3 Assessment and Plan (1) Cardiorenal syndrome with renal failure Status: Acute (2) DVT prophylaxis Status: Acute (3) ESRD (end stage renal disease) Status: Acute (4) HTN (hypertension), benign Status: Acute (5) NSTEMI (non-ST elevation myocardial infarction) Status: Acute (6) Renal failure Status: Acute (7) Respiratory failure with hypoxia Status: Acute (8) Syncope Status: Acute (9) Visit for wound check Status: Acute (10) Acute kidney injury superimposed on CKD Status: Chronic (11) Brain mass Status: Chronic (12) DM2 (diabetes mellitus, type 2) Status: Chronic (13) HTN (hypertension) Status: Chronic - Assessment and Plan (Free Text) Plan: dr mercer on board f/u with dr farida liu as ordered O2 support maty same f/u labs
--- NOTE | 2016-09-06 16:29 | CARD ---
APPROVED REPORT EKG Measurement Heart [id number] <Conclusion> Sinus tachycardia Anterior infarct, age undetermined Abnormal ECG
[2016-09-06] MEDS: Insulin Detemir 100 units/ml Vial (Levemir) SC SCH (22:49)
[2016-09-07] MEDS: Albuterol-Ipratrop 3 mg / 0.5 (3 ml) UD INH SCH ×4 (01:37→19:14)
[2016-09-07] MEDS: Levothyroxine 50 MCG TAB PO SCH (06:36)
[2016-09-07] MEDS: (Novolog) Insulin Aspart, Recombinant 100 u/ml 10 ml vial SC SCH ×2 (08:00→11:37)
[2016-09-07] MEDS ORDERED: Heparin25000 units/250ml 1/2NS 250 ML IV PRN (08:41)
[2016-09-07 09:14] LABS: BASO # 0.1 K/uL (0.0-0.2); BASO % 0.5 % (0.0-2.0); EOS % 0.1 % (0.0-4.0); HEMATOCRIT 30.6 % (35.0-51.0); LYMPH # 1.1 K/uL (1.0-4.3); LYMPH % 8.9 % (20.0-40.0); MEAN CELL VOLUME 93.1 fL (80.0-94.0); MEAN CORPUSCULAR HEMOGLOBIN 30.5 pg (27.0-31.0); MEAN CORPUSCULAR HGB CONC 32.7 g/dL (33.0-37.0); MEAN PLATELET VOLUME 8.9 fL (7.2-11.7); MONO # 0.9 K/uL (0.0-0.8); MONO % 6.8 % (0.0-10.0); PLATELET COUNT 260 K/uL (130-400); RED CELL DISTRIBUTION WIDTH 13.5 % (11.5-14.5); WHITE BLOOD COUNT 12.5 K/uL (4.8-10.8)
[2016-09-07 09:22] LABS: INR 1.1
[2016-09-07 09:23] LABS: POTASSIUM 4.1 mmol/L (3.6-5.2)
[2016-09-07 09:25] LABS: BILIRUBIN,TOTAL 0.8 mg/dL (0.2-1.3)
[2016-09-07 09:26] LABS: ALB/GLOB RATIO 1.2 (1.0-2.1); CALCIUM 7.8 mg/dl (8.6-10.4); TOTAL PROTEIN 7.1 g/dL (6.3-8.3)
[2016-09-07] MEDS: Pantoprazole 40 mg EC Tab PO SCH (09:33)
[2016-09-07 09:36] LABS: NEUTROPHIL 79 % (50-75); REACTIVE LYMPHOCYTES 2 % (0-0); TOTAL CELLS COUNTED 100
[2016-09-07 09:44] LABS: TROPONIN I 1.01 ng/mL (0.00-0.120)
[2016-09-07] MEDS: Heparin25000 units/250ml 1/2NS 250 ML IV PRN (09:56)
[2016-09-07] MEDS ORDERED: cefTRIAXone IV 1 gm in Dextros 50 ML IVPB SCH (10:00)
[2016-09-07] MEDS ORDERED: Azithromycin 500 MG in Sodium Chloride 0.9% 250 ML IVPB SCH (10:30)
--- NOTE | 2016-09-07 11:01 | CP.CCUPN ---
CCU Subjective - Physician Review Subjective (Free Text): CRITICAL CARE CONSULT NOTE CC: shortness of breath HPI: 81 year old male with PMHx of DM, HTN, CKD, and meningeoma admitted on 12/14 for shortness of breath with 86-93% O2 saturation, requiring BiPAP. Patient was found to have elevated troponins. Patient was seen by cardiology, diagnosed as NSTEMI. Patient is complaining of cough but denies any other symptoms. Patient was transferred to the ICU, continued on BiPAP. PICC line was placed for venous access to start heparin drip. Patient was intubated due to respiratory distress. PMHx: DM, HTN, CKD, Meningeoma PSHx: Neck surgery Meds: As per JUL All: NKDA SHx: Denies any tobacco, alcohol, or illicit drug use FHx: Non-contributory PMD: Dr. Holly Granger CCU Objective - Vital Signs / Intake & Output Vital Signs (Last 4 hours): Vital Signs Temp Pulse Resp BP Pulse Ox 09/07/16 10:38 97.6 F 112 H 24 160/99 H 90 L 09/07/16 09:31 141/81 09/07/16 08:47 107 H 09/07/16 08:33 146/81 09/07/16 08:31 105 H 09/07/16 07:22 98.4 F 104 H 18 137/70 Intake and Output (Last 8hrs): Intake & Output 09/06/16 09/07/16 09/07/16 22:59 06:59 14:59 Intake Total 320 Output Total 700 Balance -380 Weight 158 lb 11.2 oz Intake: Oral 320 Output: Urine 700 Urethral (Garza) 700 Other: # Bowel Movements 0 - Physical Exam Head: Positive for: Atraumatic, Normocephalic Pupils: Positive for: PERRL Extroacular Muscles: Positive for: EOMI Conjunctiva: Positive for: Normal Mouth: Positive for: Moist Mucous Membranes Neck: Positive for: Normal Range of Motion Respiratory/Chest: Positive for: Decreased Breath Sounds, Rales Cardiovascular: Positive for: Regular Rate and Rhythm, Normal S1, S2 Abdomen: Positive for: Distention, Normal Bowel Sounds. Negative for: Tenderness Upper Extremity: Positive for: Normal Inspection. Negative for: Cyanosis, Edema Lower Extremity: Positive for: Normal Inspection. Negative for: Edema Neurological: Positive for: GCS=15 Skin: Positive for: Warm, Dry Psychiatric: Positive for: Alert, Oriented x 3, Normal Insight - Medications Active Medications: Active Medications Generic Name Dose Route Start Last Admin Trade Name Abrahamq PRN Reason Stop Dose Admin Albuterol/Ipratropium 3 ml 09/04/16 20:00 09/07/16 08:31 Duoneb 3 Mg/0.5 Mg (3 Ml) Ud INH 3 ml RQ6 [facility] Administration Allopurinol 100 mg 09/05/16 10:00 09/07/16 09:33 Zyloprim PO 100 mg DAILY [facility] Administration Amlodipine Besylate 5 mg 09/05/16 10:00 09/07/16 09:32 Norvasc PO 5 mg DAILY [facility] Administration Aspirin 81 mg 09/05/16 10:00 09/07/16 09:34 Aspirin Chewable PO 81 mg DAILY [facility] Administration Carvedilol 12.5 mg 09/04/16 18:00 09/07/16 09:31 Coreg PO 12.5 mg BID [facility] Administration Cyclobenzaprine HCl 10 mg 09/04/16 18:00 09/07/16 09:31 Flexeril PO 10 mg BID [facility] Administration Duloxetine HCl 30 mg 09/05/16 10:00 09/07/16 09:31 Cymbalta PO 30 mg DAILY [facility] Administration Escitalopram Oxalate 10 mg 09/05/16 10:00 09/07/16 09:32 Lexapro PO 10 mg DAILY [facility] Administration Famotidine 20 mg 09/05/16 10:00 09/07/16 09:32 Pepcid PO 20 mg DAILY [facility] Administration Furosemide 80 mg 09/05/16 10:00 09/07/16 09:32 Lasix IVP Not Given DAILY [facility] Gabapentin 300 mg 09/04/16 18:00 09/07/16 09:34 Neurontin PO 300 mg TID [facility] Administration Azithromycin 500 mg/ Sodium 250 mls @ 250 mls/hr 09/07/16 10:30 Chloride IVPB Q24H [facility] Ceftriaxone Sodium 50 mls @ 100 mls/hr 09/07/16 10:00 09/07/16 09:34 Rocephin Iv 1 Gm Duplex IVPB 100 mls/hr DAILY [facility] Administration Heparin Sodium/Sodium Chloride 250 mls @ 8.638 mls/hr 09/07/16 09:12 09/07/16 09:56 Heparin 28176 Units/250ml 1/2 Normal Saline IV 8.638 mls/hr .Q24H PRN Administration PROTOCOL Protocol 12 UNITS/KG/HR Insulin Aspart 0 unit 09/04/16 18:00 09/07/16 08:00 Novolog SC 4 unit ACHS [facility] Administration Protocol Insulin Detemir 16 unit 09/04/16 22:00 09/06/16 22:49 Levemir SC 16 unit HS [facility] Administration Isosorbide Mononitrate 60 mg 09/05/16 10:00 09/07/16 09:32 Imdur PO 60 mg DAILY [facility] Administration Levothyroxine Sodium 50 mcg 09/05/16 06:30 09/07/16 06:36 Synthroid PO 50 mcg DAILY@0630 [facility] Administration Pantoprazole Sodium 40 mg 09/05/16 10:00 09/07/16 09:33 Protonix Ec Tab PO 40 mg DAILY [facility] Administration Rosuvastatin Calcium 10 mg 09/04/16 21:15 09/06/16 22:50 Crestor PO 10 mg HS [facility] Administration Sevelamer Carbonate 800 mg 09/04/16 18:00 09/07/16 09:33 Renvela PO 800 mg TID [facility] Administration - Patient Studies Lab Studies: Lab Studies 09/07/16 09/07/16 09/07/16 Range/Units 09:10 06:12 01:58 WBC 12.5 H (4.8-10.8) K/uL RBC 3.28 L (4.40-5.90) Mil/uL Hgb 10.0 L (12.0-18.0) g/dL Hct 30.6 L (35.0-51.0) % MCV 93.1 (80.0-94.0) fL MCH 30.5 (27.0-31.0) pg MCHC 32.7 L (33.0-37.0) g/dL RDW 13.5 (11.5-14.5) % Plt Count 260 (130-400) K/uL MPV 8.9 (7.2-11.7) fL Neut % (Auto) 83.7 H (50.0-75.0) % Lymph % (Auto) 8.9 L (20.0-40.0) % Campbell % (Auto) 6.8 (0.0-10.0) % Eos % (Auto) 0.1 (0.0-4.0) % Baso % (Auto) 0.5 (0.0-2.0) % Neut # 10.4 H (1.8-7.0) K/uL Lymph # 1.1 (1.0-4.3) K/uL Campbell # 0.9 H (0.0-0.8) K/uL Eos # 0.0 (0.0-0.7) K/uL Baso # 0.1 (0.0-0.2) K/uL Neutrophils % (Manual) 79 H (50-75) % Band Neutrophils % 1 (0-2) % Lymphocytes % (Manual) 11 L (20-40) % Reactive Lymphs % 2 H (0-0) % Monocytes % (Manual) 7 (0-10) % Platelet Estimate Normal (NORMAL) RBC Morphology Normal PT 12.2 (9.7-12.2) SECONDS INR 1.1 APTT 29 (21-34) SECONDS Sodium 138 (132-148) mmol/L Potassium 4.1 (3.6-5.2) mmol/L Chloride 93 L (98-107) mmol/L Carbon Dioxide 25 (22-30) mmol/L Anion Gap 24 H (10-20) BUN 72 H (9-20) mg/dL Creatinine 3.8 H (0.8-1.5) MG/DL Est GFR ( Amer) 19 Est GFR (Non-Af Amer) 15 POC Glucose (mg/dL) 343 H 394 H (65-110) mg/dL Random Glucose 323 H (75-110) mg/dL Calcium 7.8 L (8.6-10.4) mg/dl Total Bilirubin 0.8 (0.2-1.3) mg/dL AST 16 L (17-59) U/L ALT 19 L D (21-72) U/L Alkaline Phosphatase 73 (38-126) U/L Troponin I 1.0100 H* (0.00-0.120) ng/mL Total Protein 7.1 (6.3-8.3) g/dL Albumin 3.8 (3.5-5.0) g/dL Globulin 3.3 (2.2-3.9) gm/dL Albumin/Globulin Ratio 1.2 (1.0-2.1) 09/06/16 09/06/16 09/06/16 Range/Units 21:36 16:59 11:03 WBC (4.8-10.8) K/uL RBC (4.40-5.90) Mil/uL Hgb (12.0-18.0) g/dL Hct (35.0-51.0) % MCV (80.0-94.0) fL MCH (27.0-31.0) pg MCHC (33.0-37.0) g/dL RDW (11.5-14.5) % Plt Count (130-400) K/uL MPV (7.2-11.7) fL Neut % (Auto) (50.0-75.0) % Lymph % (Auto) (20.0-40.0) % Campbell % (Auto) (0.0-10.0) % Eos % (Auto) (0.0-4.0) % Baso % (Auto) (0.0-2.0) % Neut # (1.8-7.0) K/uL Lymph # (1.0-4.3) K/uL Campbell # (0.0-0.8) K/uL Eos # (0.0-0.7) K/uL Baso # (0.0-0.2) K/uL Neutrophils % (Manual) (50-75) % Band Neutrophils % (0-2) % Lymphocytes % (Manual) (20-40) % Reactive Lymphs % (0-0) % Monocytes % (Manual) (0-10) % Platelet Estimate (NORMAL) RBC Morphology PT (9.7-12.2) SECONDS INR APTT (21-34) SECONDS Sodium (132-148) mmol/L Potassium (3.6-5.2) mmol/L Chloride (98-107) mmol/L Carbon Dioxide (22-30) mmol/L Anion Gap (10-20) BUN (9-20) mg/dL Creatinine (0.8-1.5) MG/DL Est GFR ( Amer) Est GFR (Non-Af Amer) POC Glucose (mg/dL) 354 H 270 H 227 H (65-110) mg/dL Random Glucose (75-110) mg/dL Calcium (8.6-10.4) mg/dl Total Bilirubin (0.2-1.3) mg/dL AST (17-59) U/L ALT (21-72) U/L Alkaline Phosphatase (38-126) U/L Troponin I (0.00-0.120) ng/mL Total Protein (6.3-8.3) g/dL Albumin (3.5-5.0) g/dL Globulin (2.2-3.9) gm/dL Albumin/Globulin Ratio (1.0-2.1) Laboratory Results - last 24 hr 09/06/16 09/06/16 09/06/16 11:03 16:59 21:36 WBC RBC Hgb Hct MCV MCH MCHC RDW Plt Count MPV Neut % (Auto) Lymph % (Auto) Campbell % (Auto) Eos % (Auto) Baso % (Auto) Neut # Lymph # Campbell # Eos # Baso # Neutrophils % (Manual) Band Neutrophils % Lymphocytes % (Manual) Reactive Lymphs % Monocytes % (Manual) Platelet Estimate RBC Morphology PT INR APTT Sodium Potassium Chloride Carbon Dioxide Anion Gap BUN Creatinine Est GFR ( Amer) Est GFR (Non-Af Amer) POC Glucose (mg/dL) 227 H 270 H 354 H Random Glucose Calcium Total Bilirubin AST ALT Alkaline Phosphatase Troponin I Total Protein Albumin Globulin Albumin/Globulin Ratio 09/07/16 09/07/16 09/07/16 01:58 06:12 09:10 WBC 12.5 H RBC 3.28 L Hgb 10.0 L Hct 30.6 L MCV 93.1 MCH 30.5 MCHC 32.7 L RDW 13.5 Plt Count 260 MPV 8.9 Neut % (Auto) 83.7 H Lymph % (Auto) 8.9 L Campbell % (Auto) 6.8 Eos % (Auto) 0.1 Baso % (Auto) 0.5 Neut # 10.4 H Lymph # 1.1 Campbell # 0.9 H Eos # 0.0 Baso # 0.1 Neutrophils % (Manual) 79 H Band Neutrophils % 1 Lymphocytes % (Manual) 11 L Reactive Lymphs % 2 H Monocytes % (Manual) 7 Platelet Estimate Normal RBC Morphology Normal PT 12.2 INR 1.1 APTT 29 Sodium 138 Potassium 4.1 Chloride 93 L Carbon Dioxide 25 Anion Gap 24 H BUN 72 H Creatinine 3.8 H Est GFR ( Amer) 19 Est GFR (Non-Af Amer) 15 POC Glucose (mg/dL) 394 H 343 H Random Glucose 323 H Calcium 7.8 L Total Bilirubin 0.8 AST 16 L ALT 19 L D Alkaline Phosphatase 73 Troponin I 1.0100 H* Total Protein 7.1 Albumin 3.8 Globulin 3.3 Albumin/Globulin Ratio 1.2 Fingerstick Blood Sugar Results: 422 Critical Care Progress Note - Nutrition Nutrition: Nutrition Category Date Time Status Renal Diet [DIET] Diets 09/04/16 Lunch Active Assessment/Plan - Assessment and Plan (Free Text) Assessment: 81 year old with DM, HTN, CKD, meningeoma, admitted with shortness of breath requiring BiPAP. CXR reveals pulmonary edema. Elevated troponins, diagnosed with NSTEMI. Plan: Neuro: Alert, awake, oriented Monitor Pulm: Desaturating 86-87% on BiPAP Dr. Castro consulted - Lasix 40 Q8H, Duonebs Q6H, Imdur, Solumedrol 40 Q8H Patient had PICC line placed for heparin drip Patient intubated due to ARDS and likely pneumonia (PRVC: FiO2 100%, Ppeek [id number], resp rate 24, peep 8) Zosyn 2.25mg Q8H renally dosed 09/07 CXR: reveals pulmonary edema, worsening pneumonia, Increasing bilateral pulmonary opacity, nonspecific. New right PICC catheter terminates at approximately the level of the cavoatrial junction. New ET tube appropriately positioned. CV: Elevated troponins: NSTEMI; PICC line placed, started on Heparin drip ECHO: Preliminary reading: anteroseptal hypokinesia HLD: Crestor 10mg PO QHS CAD: ASA Renal: LUIS EDUARDO on CKD Renvela 800mg PO TID Endo: DM: Levemir 16 units QHS, ISS -low Hypothyroidism: 50 mcg PO daily ID: Worsening pneumonia Afebrile, leukocytosis Lactate level 1.6 Blood cultures negative x [address] Price consulted Prophylaxis: Protonix 40mg PO daily Heparin Drip DW Geo Rodriguez DO, PGY-1
[2016-09-07] MEDS ORDERED: Albuterol-Ipratrop 3 mg / 0.5 (3 ml) UD INH STA (11:22)
--- NOTE | 2016-09-07 11:25 | RAD ---
HISTORY: Congestive heart failure/ pneumonia. Technique: Single view portable semi erect @ 09:10. COMPARISON: 09/05/2016. FINDINGS: LUNGS: Stable pulmonary edema. PLEURA: No significant pleural effusion identified, no pneumothorax apparent. CARDIOVASCULAR: No significant interval change compared to the prior examination(s). OSSEOUS STRUCTURES: No significant abnormalities. VISUALIZED UPPER ABDOMEN: Normal. OTHER FINDINGS: None. IMPRESSION: Stable severe multi focal airspace disease/pulmonary edema.
[2016-09-07 12:39] LABS: ABG ALLEN TEST PO; ARTERIAL BLOOD HGB O2 SAT 81.4 % (95.0-98.0); CARBOXYHEMOGLOBIN 1.7 % (0.5-1.5); DRAW SITE RRA; HHB 16.1 % (0.0-5.0); METHEMOGLOBIN 0.7 % (0.0-3.0)
--- NOTE | 2016-09-07 13:07 | CP.PCM.PN ---
Subjective - Date & Time of Evaluation Date of Evaluation: 09/07/16 Time of Evaluation: 12:00 - Subjective Subjective: With shortness of breath, post non-ST elevation myocardial infarction, echo with anteroseptal hypokinesia. Probable conservative treatment with poor overall prognosis, currently in the intensive care unit Objective - Vital Signs/Intake and Output Vital Signs (last 24 hours): Temp Pulse Resp BP Pulse Ox 98 F 109 H 25 H 137/72 84 L 09/07/16 12:00 09/07/16 12:00 09/07/16 12:00 09/07/16 12:00 09/07/16 12:00 Intake and Output: 09/07/16 09/07/16 06:59 18:59 Intake Total 320 267.2 Output Total 700 300 Balance -380 -32.8 - Medications Medications: Current Medications Albuterol/Ipratropium (Duoneb 3 Mg/0.5 Mg (3 Ml) Ud) 3 ml INH RQ6 [facility] Last Admin: 09/07/16 08:31 Dose: 3 ml Allopurinol (Zyloprim) 100 mg PO DAILY [facility] Last Admin: 09/07/16 09:33 Dose: 100 mg Amlodipine Besylate (Norvasc) 5 mg PO DAILY [facility] Last Admin: 09/07/16 09:32 Dose: 5 mg Aspirin (Aspirin Chewable) 81 mg PO DAILY [facility] Last Admin: 09/07/16 09:34 Dose: 81 mg Carvedilol (Coreg) 12.5 mg PO BID [facility] Last Admin: 09/07/16 09:31 Dose: 12.5 mg Cyclobenzaprine HCl (Flexeril) 10 mg PO BID [facility] Last Admin: 09/07/16 09:31 Dose: 10 mg Duloxetine HCl (Cymbalta) 30 mg PO DAILY [facility] Last Admin: 09/07/16 09:31 Dose: 30 mg Escitalopram Oxalate (Lexapro) 10 mg PO DAILY [facility] Last Admin: 09/07/16 09:32 Dose: 10 mg Famotidine (Pepcid) 20 mg PO DAILY [facility] Last Admin: 09/07/16 09:32 Dose: 20 mg Furosemide (Lasix) 80 mg IVP DAILY [facility] Last Admin: 09/07/16 09:32 Dose: Not Given Gabapentin (Neurontin) 300 mg PO TID [facility] Last Admin: 09/07/16 09:34 Dose: 300 mg Azithromycin 500 mg/ Sodium (Chloride) 250 mls @ 250 mls/hr IVPB Q24H [facility] Last Admin: 09/07/16 11:15 Dose: 250 mls/hr Ceftriaxone Sodium (Rocephin Iv 1 Gm Duplex) 50 mls @ 100 mls/hr IVPB DAILY [facility] Last Admin: 09/07/16 09:34 Dose: 100 mls/hr Heparin Sodium/Sodium Chloride (Heparin 99440 Units/250ml 1/2 Normal Saline) 250 mls @ 8.638 mls/hr IV .Q24H PRN; Protocol; 12 UNITS/KG/HR PRN Reason: PROTOCOL Last Admin: 09/07/16 09:56 Dose: 8.638 mls/hr Insulin Aspart (Novolog) 0 unit SC ACHS [facility] PRN Reason: Protocol Last Admin: 09/07/16 11:37 Dose: 6 unit Insulin Detemir (Levemir) 16 unit SC [facility] Last Admin: 09/06/16 22:49 Dose: 16 unit Isosorbide Mononitrate (Imdur) 60 mg PO DAILY [facility] Last Admin: 09/07/16 09:32 Dose: 60 mg Levothyroxine Sodium (Synthroid) 50 mcg PO DAILY@0630 [facility] Last Admin: 09/07/16 06:36 Dose: 50 mcg Pantoprazole Sodium (Protonix Ec Tab) 40 mg PO DAILY [facility] Last Admin: 09/07/16 09:33 Dose: 40 mg Rosuvastatin Calcium (Crestor) 10 mg PO [facility] Last Admin: 09/06/16 22:50 Dose: 10 mg Sevelamer Carbonate (Renvela) 800 mg PO TID [facility] Last Admin: 09/07/16 09:33 Dose: 800 mg - Labs Labs: 09/07/16 09:10 09/07/16 09:10 PT 12.2 SECONDS (9.7-12.2) 09/07/16 09:10 INR 1.1 09/07/16 09:10 APTT 29 SECONDS (21-34) 09/07/16 09:10 - Constitutional Appears: Non-toxic - Head Exam Head Exam: ATRAUMATIC - Eye Exam Eye Exam: EOMI - ENT Exam ENT Exam: Mucous Membranes Moist - Neck Exam Neck Exam: absent: Lymphadenopathy, Thyromegaly - Respiratory Exam Respiratory Exam: Prolonged Expiratory Phase. absent: Rales - Cardiovascular Exam Cardiovascular Exam: REGULAR RHYTHM, Murmur - GI/Abdominal Exam GI & Abdominal Exam: Normal Bowel Sounds. absent: Organomegaly - Rectal Exam Rectal Exam: absent: Deferred - Extremities Exam Extremities Exam: Normal Capillary Refill. absent: Calf Tenderness - Neurological Exam Neurological Exam: Alert - Psychiatric Exam Psychiatric exam: Normal Mood - Skin Skin Exam: Dry Assessment and Plan (1) NSTEMI (non-ST elevation myocardial infarction) Status: Acute (2) Pulmonary edema Status: Acute (3) Acute kidney injury superimposed on CKD Status: Chronic (4) Brain mass Status: Chronic (5) DM2 (diabetes mellitus, type 2) Status: Chronic (6) HTN (hypertension) Status: Chronic
--- NOTE | 2016-09-07 13:43 | CP.PCM.PN ---
Subjective - Date & Time of Evaluation Date of Evaluation: 09/07/16 Time of Evaluation: 08:30 - Subjective Subjective: Pt is a 81yo M with a PMH of CKD, DM, HtN and meningeoma. Pt seen and examined at bedside with respiratory depression; 93% O2 saturation requiring BiPAP; oxygen saturation did not improve with BiPAP. Patient complains of SOB, non- productive cough, R leg/thigh pain only with weight bearing. Pt denied a history of hemoptosis. Objective - Vital Signs/Intake and Output Vital Signs (last 24 hours): Temp Pulse Resp BP Pulse Ox 98 F 109 H 25 H 137/72 84 L 09/07/16 12:00 09/07/16 13:30 09/07/16 12:00 09/07/16 12:00 09/07/16 12:00 Intake and Output: 09/07/16 09/07/16 06:59 18:59 Intake Total 320 267.2 Output Total 700 300 Balance -380 -32.8 - Medications Medications: Current Medications Albuterol/Ipratropium (Duoneb 3 Mg/0.5 Mg (3 Ml) Ud) 3 ml INH RQ6 [facility] Last Admin: 09/07/16 13:29 Dose: 3 ml Allopurinol (Zyloprim) 100 mg PO DAILY [facility] Last Admin: 09/07/16 09:33 Dose: 100 mg Amlodipine Besylate (Norvasc) 5 mg PO DAILY [facility] Last Admin: 09/07/16 09:32 Dose: 5 mg Aspirin (Aspirin Chewable) 81 mg PO DAILY [facility] Last Admin: 09/07/16 09:34 Dose: 81 mg Carvedilol (Coreg) 12.5 mg PO BID [facility] Last Admin: 09/07/16 09:31 Dose: 12.5 mg Cyclobenzaprine HCl (Flexeril) 10 mg PO BID [facility] Last Admin: 09/07/16 09:31 Dose: 10 mg Duloxetine HCl (Cymbalta) 30 mg PO DAILY [facility] Last Admin: 09/07/16 09:31 Dose: 30 mg Escitalopram Oxalate (Lexapro) 10 mg PO DAILY [facility] Last Admin: 09/07/16 09:32 Dose: 10 mg Famotidine (Pepcid) 20 mg PO DAILY [facility] Last Admin: 09/07/16 09:32 Dose: 20 mg Furosemide (Lasix) 80 mg IVP DAILY [facility] Last Admin: 09/07/16 09:32 Dose: Not Given Gabapentin (Neurontin) 300 mg PO TID [facility] Last Admin: 09/07/16 09:34 Dose: 300 mg Azithromycin 500 mg/ Sodium (Chloride) 250 mls @ 250 mls/hr IVPB Q24H [facility] Last Admin: 09/07/16 11:15 Dose: 250 mls/hr Ceftriaxone Sodium (Rocephin Iv 1 Gm Duplex) 50 mls @ 100 mls/hr IVPB DAILY [facility] Last Admin: 09/07/16 09:34 Dose: 100 mls/hr Heparin Sodium/Sodium Chloride (Heparin 75958 Units/250ml 1/2 Normal Saline) 250 mls @ 8.638 mls/hr IV .Q24H PRN; Protocol; 12 UNITS/KG/HR PRN Reason: PROTOCOL Last Admin: 09/07/16 09:56 Dose: 8.638 mls/hr Insulin Aspart (Novolog) 0 unit SC ACHS [facility] PRN Reason: Protocol Last Admin: 09/07/16 11:37 Dose: 6 unit Insulin Detemir (Levemir) 16 unit SC [facility] Last Admin: 09/06/16 22:49 Dose: 16 unit Isosorbide Mononitrate (Imdur) 60 mg PO DAILY [facility] Last Admin: 09/07/16 09:32 Dose: 60 mg Levothyroxine Sodium (Synthroid) 50 mcg PO DAILY@0630 [facility] Last Admin: 09/07/16 06:36 Dose: 50 mcg Pantoprazole Sodium (Protonix Ec Tab) 40 mg PO DAILY [facility] Last Admin: 09/07/16 09:33 Dose: 40 mg Rosuvastatin Calcium (Crestor) 10 mg PO HS [facility] Last Admin: 09/06/16 22:50 Dose: 10 mg Sevelamer Carbonate (Renvela) 800 mg PO TID [facility] Last Admin: 09/07/16 09:33 Dose: 800 mg - Labs Labs: 09/07/16 09:10 09/07/16 09:10 PT 12.2 SECONDS (9.7-12.2) 09/07/16 09:10 INR 1.1 09/07/16 09:10 APTT 29 SECONDS (21-34) 09/07/16 09:10 - Constitutional Appears: Well, In Acute Distress - Head Exam Head Exam: ATRAUMATIC, NORMOCEPHALIC - Respiratory Exam Respiratory Exam: Rales, Respiratory Distress, NORMAL BREATHING PATTERN. absent : Rhonchi, Wheezes - Cardiovascular Exam Cardiovascular Exam: +S1, +S2. absent: JVD, Murmur - Extremities Exam Extremities Exam: Pedal Edema (+1) Additional comments: +1 leg edema, upper extremities equal pulses bilaterally - Neurological Exam Neurological Exam: Alert, Oriented x3 - Psychiatric Exam Psychiatric exam: Normal Affect, Normal Mood - Skin Skin Exam: Dry, Intact, Normal Color, Warm Assessment and Plan (1) Respiratory failure with hypoxia Assessment & Plan: 09-05-2016 CXR: defuse prominent increased interstitial lung markings suggestive of moderate to severe venous congestion and/or diffuse increased interstitial infiltrates. Question small bilateral plural effusions Repeat CXR follow results ECHO and ECG follow results Mycoplasma and Legionella serology and labs CBC, CMP (elevated WBC, anemia, BUN/Cr consistent with CKD, elevated glucose, anion gap 24) Continue Lasix 80mg DC lovenox and begin heparin IV DC Avalox and begin Rocephin and Zithromax ICU evaluation Continue to monitor for SOB, fevers, and productive cough Addendum 09-07-16, 3pm: CXR repeat shows bilateral infiltrates without cardiomegaly consistent with ARDS; pt stabilized with intubation in the ICU ( PRVC: FiO2 100%, Ppeek [id number], resp rate 22, peep 6); O2sat 88%; physical exam includes clear lung sounds anteriorly in all quadrants; will follow repeat ABG; SIRS criteria met recommend lactate level and sepsis evaluation Status: Acute (2) NSTEMI (non-ST elevation myocardial infarction) Status: Acute (3) Acute kidney injury superimposed on CKD Status: Chronic
[2016-09-07] MEDS ORDERED: MethylPREDNISolone 40 mg Vial IVP STA (14:37)
[2016-09-07] MEDS ORDERED: Cisatracurium Besylate 100 MG in Dextrose 5% In Water 240 ML IV PRN (14:45)
[2016-09-07] MEDS ORDERED: Sodium Chloride 0.9% 250 ML IV ONE (15:57)
--- NOTE | 2016-09-07 16:00 | RAD ---
HISTORY: TLC placement, post-intubation COMPARISON: 09/07/2016 at 9:18 a.m. FINDINGS: LUNGS: Increasing diffuse bilateral pulmonary opacity. Differential diagnosis includes pulmonary edema, ARDS for bilateral pneumonia. PLEURA: Probable small bilateral pleural effusion. No pneumothorax. CARDIOVASCULAR: ETT, positioned just below the level of the medial clavicles. This is approximately 4.7 cm above the tracheal kecia but visualization is limited. A right PICC catheter is seen with its tip terminating in the region of the cavoatrial junction. OSSEOUS STRUCTURES: No significant abnormalities. VISUALIZED UPPER ABDOMEN: Normal. OTHER FINDINGS: None. IMPRESSION: Increasing bilateral pulmonary opacity, nonspecific. New right PICC catheter terminates at approximately the level of the cavoatrial junction. New ET tube appropriately positioned.
[2016-09-07 16:18] LABS: ABG ALLEN TEST POS; ABG MECHANICAL RATE 24; ATERIAL BLOOD GAS PEEP 8; DRAW SITE RRA
[2016-09-07] MEDS: Piperacillin/Tazobact 2.25 GM in Sodium Chloride 100 ML IVPB SCH (16:59)
--- NOTE | 2016-09-07 18:07 | CARD ---
APPROVED REPORT EXAM: LIMITED Two-dimensional and M-mode echocardiogram with Doppler and color Doppler. Other Information Technically limited study due to body habitus.BIPAP INDICATION Dyspnea Syncope Congestive Heart Failure ELEVATED TROPONIN RISK FACTORS Hypertension Diabetes Aortic Valve AI P 1/2 [id number] Mitral Valve MV E [id number]/sMV A [id number]/sE/A ratio2.3 TDI E/Lateral E'0.0E/Medial E'0.0 Tricuspid Valve TR Peak [id number]/sTR Peak [id number] LEFT VENTRICLE The Left Ventricle is mildly dilated. There is normal left ventricular wall thickness. The systolic function is mildly to moderately impaired. Anteroapical - inferoapical hypokinesis highly suggestive of coronary heart disease. Transmitral Doppler flow pattern is Grade III restrictive diastolic dysfunction. Elevated left atrial pressure by Tissue Doppler. RIGHT VENTRICLE The right ventricle is normal size. The right ventricular systolic function is normal. ATRIA The left atrium is moderately dilated. The right atrium is mildly dilated. AORTIC VALVE The aortic valve is normal in structure. There is trace aortic regurgitation. MITRAL VALVE Mitral annular calcification is moderate. Leaflets are grossly normal. Mitral regurgitation is moderate. TRICUSPID VALVE The tricuspid valve is normal in structure. There is moderate tricuspid regurgitation. Right ventricular systolic pressure is estimated at 55 mmHg. There is moderate pulmonary hypertension. PULMONIC VALVE The pulmonic valve is not well visualized. GREAT VESSELS The IVC collapses <50% with inspiration. PERICARDIAL EFFUSION There is no pericardial effusion. <Conclusion> The Left Ventricle is mildly dilated. The systolic function is mildly to moderately impaired. Anteroapical - inferoapical hypokinesis highly suggestive of coronary heart disease. Transmitral Doppler flow pattern is Grade III restrictive diastolic dysfunction. Elevated left atrial pressure by Tissue Doppler. The right ventricular systolic function is normal. Moderate mitral regurgitation. There is trace aortic regurgitation. There is moderate tricuspid regurgitation. There is moderate pulmonary hypertension. Right ventricular systolic pressure is estimated at 55 mmHg. There is no pericardial effusion.
--- NOTE | 2016-09-07 18:59 | CP.PCM.PN ---
Subjective - Date & Time of Evaluation Date of Evaluation: 09/07/16 Time of Evaluation: 16:20 - Subjective Subjective: clinically same in icu on bipap support iv rx in progress Objective - Vital Signs/Intake and Output Vital Signs (last 24 hours): Temp Pulse Resp BP Pulse Ox 98 F 89 24 99/53 L 93 L 09/07/16 16:00 09/07/16 18:00 09/07/16 18:00 09/07/16 18:00 09/07/16 18:00 Intake and Output: 09/07/16 09/07/16 06:59 18:59 Intake Total 320 284.4 Output Total 700 525 Balance -380 -240.6 - Medications Medications: Current Medications Albuterol/Ipratropium (Duoneb 3 Mg/0.5 Mg (3 Ml) Ud) 3 ml INH RQ6 [facility] Last Admin: 09/07/16 13:29 Dose: 3 ml Aspirin (Aspirin Chewable) 81 mg PO DAILY [facility] Last Admin: 09/07/16 09:34 Dose: 81 mg Famotidine (Pepcid) 20 mg PO DAILY [facility] Last Admin: 09/07/16 09:32 Dose: 20 mg Furosemide (Lasix) 80 mg IVP DAILY [facility] Last Admin: 09/07/16 09:32 Dose: Not Given Heparin Sodium/Sodium Chloride (Heparin 10255 Units/250ml 1/2 Normal Saline) 250 mls @ 8.638 mls/hr IV .Q24H PRN; Protocol; 12 UNITS/KG/HR PRN Reason: PROTOCOL Last Titration: 09/07/16 14:58 Dose: 12 units/kg/hr Propofol (Diprivan) 100 mls @ 2.16 mls/hr IV .Q24H PRN; Protocol; 5 MCG/KG/MIN PRN Reason: TITRATE PER MD ORDER Last Admin: 09/07/16 14:36 Dose: 8.638 mls/hr Piperacillin Sod/Tazobactam (Sod 2.25 gm/ Sodium Chloride) 100 mls @ 200 mls/ hr IVPB Q8H [facility] Last Admin: 09/07/16 16:59 Dose: 200 mls/hr Cisatracurium Besylate 100 mg/ (Dextrose) 250 mls @ 10.79 mls/hr IV .[id number] PRN; Protocol; 1 MCG/KG/MIN PRN Reason: PROTOCOL Last Titration: 09/07/16 16:57 Dose: 0.5 mcg/kg/min Insulin Aspart (Novolog) 0 unit [facility] PRN Reason: Protocol Last Admin: 09/07/16 11:37 Dose: 6 unit Insulin Detemir (Levemir) 16 unit [facility] Last Admin: 09/06/16 22:49 Dose: 16 unit Isosorbide Mononitrate (Imdur) 60 mg PO DAILY [facility] Last Admin: 09/07/16 09:32 Dose: 60 mg Levothyroxine Sodium (Synthroid) 50 mcg PO DAILY@0630 [facility] Last Admin: 09/07/16 06:36 Dose: 50 mcg Methylprednisolone (Solu-Medrol) 40 mg IVP Q8 [facility] Pantoprazole Sodium (Protonix Ec Tab) 40 mg PO DAILY [facility] Last Admin: 09/07/16 09:33 Dose: 40 mg Rosuvastatin Calcium (Crestor) 10 mg PO HS [facility] Last Admin: 09/06/16 22:50 Dose: 10 mg Sevelamer Carbonate (Renvela) 800 mg PO TID [facility] Last Admin: 09/07/16 17:01 Dose: Not Given - Labs Labs: 09/07/16 09:10 09/07/16 09:10 PT 12.2 SECONDS (9.7-12.2) 09/07/16 09:10 INR 1.1 09/07/16 09:10 APTT 29 SECONDS (21-34) 09/07/16 09:10 - Constitutional Appears: Well - Head Exam Head Exam: ATRAUMATIC, NORMAL INSPECTION, NORMOCEPHALIC - Eye Exam Eye Exam: EOMI, Normal appearance, PERRL Pupil Exam: NORMAL ACCOMODATION, PERRL - ENT Exam ENT Exam: Mucous Membranes Moist, Normal Exam - Neck Exam Neck Exam: Full ROM, Normal Inspection. absent: Lymphadenopathy - Respiratory Exam Respiratory Exam: Decreased Breath Sounds - Cardiovascular Exam Cardiovascular Exam: REGULAR RHYTHM, +S1, +S2 - GI/Abdominal Exam GI & Abdominal Exam: Soft, Diminished Bowel Sounds - Rectal Exam Rectal Exam: Deferred - Neurological Exam Neurological Exam: Alert, Awake, Oriented x3 Assessment and Plan (1) Cardiorenal syndrome with renal failure Status: Acute (2) DVT prophylaxis Status: Acute (3) ESRD (end stage renal disease) Status: Acute (4) HTN (hypertension), benign Status: Acute (5) NSTEMI (non-ST elevation myocardial infarction) Status: Acute (6) Renal failure Status: Acute (7) Respiratory failure with hypoxia Status: Acute (8) Syncope Status: Acute (9) Visit for wound check Status: Acute (10) Acute kidney injury superimposed on CKD Status: Chronic (11) Brain mass Status: Chronic (12) DM2 (diabetes mellitus, type 2) Status: Chronic (13) HTN (hypertension) Status: Chronic - Assessment and Plan (Free Text) Plan: iv abx lasix bipap and O2 support as required dr sylvie rutledge [place] as ordered monitor for fever f/u labs
[2016-09-07 21:08] LABS: BASO % 0.3 % (0.0-2.0); HEMATOCRIT 25.2 % (35.0-51.0); LYMPH # 0.6 K/uL (1.0-4.3); LYMPH % 6.3 % (20.0-40.0); MEAN CELL VOLUME 91.9 fL (80.0-94.0); MEAN CORPUSCULAR HEMOGLOBIN 31.8 pg (27.0-31.0); MEAN CORPUSCULAR HGB CONC 34.7 g/dL (33.0-37.0); MONO # 0.3 K/uL (0.0-0.8); MONO % 2.6 % (0.0-10.0); PLATELET COUNT 227 K/uL (130-400); RED CELL DISTRIBUTION WIDTH 13.6 % (11.5-14.5); WHITE BLOOD COUNT 9.8 K/uL (4.8-10.8)
[2016-09-07 21:15] LABS: POTASSIUM 3.6 mmol/L (3.6-5.2)
[2016-09-07 21:17] LABS: BILIRUBIN,TOTAL 0.7 mg/dL (0.2-1.3)
[2016-09-07 21:18] LABS: ALB/GLOB RATIO 1.1 (1.0-2.1); CALCIUM 7.4 mg/dl (8.6-10.4); MAGNESIUM 2.2 mg/dL (1.6-2.3); PHOSPHOROUS 2.5 mg/dL (2.5-4.5); TOTAL PROTEIN 5.9 g/dL (6.3-8.3)
[2016-09-07] MEDS: Insulin Detemir 100 units/ml Vial (Levemir) SC SCH (22:00)
[2016-09-07] MEDS: MethylPREDNISolone 40 mg Vial IVP SCH (22:00)
[2016-09-07 23:09] LABS: NEUTROPHIL 90 % (50-75); TOTAL CELLS COUNTED 100
[2016-09-07 23:12] LABS: LARGE PLATELETS PRESENT
[2016-09-08] MEDS: (Novolog) Insulin Aspart, Recombinant 100 u/ml 10 ml vial SC SCH ×3 (00:30→18:00)
[2016-09-08] MEDS: Albuterol-Ipratrop 3 mg / 0.5 (3 ml) UD INH SCH ×4 (01:07→19:31)
[2016-09-08 05:51] LABS: ABG ALLEN TEST POS; ABG MECHANICAL RATE 24; ARTERIAL BLOOD HGB O2 SAT 97.4 % (95.0-98.0); ATERIAL BLOOD GAS PEEP 10; DRAW SITE RRAD; HHB 0.5 % (0.0-5.0); METHEMOGLOBIN 1.1 % (0.0-3.0)
[2016-09-08] MEDS: MethylPREDNISolone 40 mg Vial IVP SCH ×3 (06:00→21:06)
[2016-09-08] MEDS: Levothyroxine 50 MCG TAB PO SCH (06:07)
[2016-09-08 06:29] LABS: BASO % 0.4 % (0.0-2.0); HEMATOCRIT 24.4 % (35.0-51.0); LYMPH # 0.7 K/uL (1.0-4.3); LYMPH % 8.3 % (20.0-40.0); MEAN CELL VOLUME 91.8 fL (80.0-94.0); MEAN CORPUSCULAR HEMOGLOBIN 31.9 pg (27.0-31.0); MEAN CORPUSCULAR HGB CONC 34.8 g/dL (33.0-37.0); MEAN PLATELET VOLUME 9.3 fL (7.2-11.7); MONO # 0.2 K/uL (0.0-0.8); PLATELET COUNT 216 K/uL (130-400); RED CELL DISTRIBUTION WIDTH 13.6 % (11.5-14.5); WHITE BLOOD COUNT 8.3 K/uL (4.8-10.8)
[2016-09-08 06:38] LABS: POTASSIUM 3.4 mmol/L (3.6-5.2)
[2016-09-08 06:40] LABS: BILIRUBIN,TOTAL 0.6 mg/dL (0.2-1.3)
[2016-09-08 06:41] LABS: TOTAL PROTEIN 5.7 g/dL (6.3-8.3)
[2016-09-08 06:42] LABS: CALCIUM 7.5 mg/dl (8.6-10.4); MAGNESIUM 2.3 mg/dL (1.6-2.3)
[2016-09-08] MEDS: Piperacillin/Tazobact 2.25 GM in Sodium Chloride 100 ML IVPB SCH ×3 (07:39→15:06)
--- NOTE | 2016-09-08 07:43 | CP.CCUPN ---
Addendum entered and electronically signed by Linda Guardado DO 09/08/16 17:09 : Procalcitonin is low, zosyn DC Addendum entered and electronically signed by Linda Guardado DO 09/08/16 15:18 : Dr. Cain spoke with family, if renal function worsens, possible renal replacement therapy as needed, prior to catherization. Patient was started on Procit. Addendum entered and electronically signed by Linda Guardado DO 09/08/16 13:30 : Case discussed with Dr. Garcia, patient will need to have dialysis prior to catherization. Pending Dr. Cain recommendations. Original Note: <Linda Guardado - Last Filed: 09/08/16 11:59> CCU Subjective - Physician Review Subjective (Free Text): Patient was seen and examined at bedside. Patient is currently intubated on PVRC : FiO2 70, PEEP 5, RR 12, Tvolume 500 saturating at 95%. Plan is for catherization with Dr. Garcia, for NSTEMI, date to be discussed. CCU Objective - Vital Signs / Intake & Output Vital Signs (Last 4 hours): Vital Signs Temp Pulse Resp BP Pulse Ox 09/08/16 07:00 77 24 107/52 L 100 09/08/16 06:00 76 24 104/51 L 100 09/08/16 05:00 77 24 106/51 L 99 09/08/16 04:00 98.8 F 87 24 101/51 L 100 Intake and Output (Last 8hrs): Intake & Output 09/07/16 09/08/16 09/08/16 22:59 06:59 14:59 Intake Total 472.9 268.0 21.0 Output Total 335 300 Balance 137.9 -32.0 21.0 Intake: Intake, IV Amount 472.9 268.0 21.0 Left Antecubital 60.2 68.8 8.6 Right Forearm 300 100 Right Proximal Port PICC 64.5 56.0 7 Right Distal Port PICC 48.2 43.2 5.4 Output: Urine 335 300 Urethral (Garza) 335 300 - Physical Exam Head: Positive for: Atraumatic, Normocephalic Pupils: Positive for: PERRL Extroacular Muscles: Positive for: EOMI Conjunctiva: Positive for: Normal Mouth: Positive for: Moist Mucous Membranes, Other (ET in place) Neck: Positive for: Normal Range of Motion Respiratory/Chest: Positive for: Decreased Breath Sounds, Rales Cardiovascular: Positive for: Regular Rate and Rhythm, Normal S1, S2 Abdomen: Positive for: Distention, Normal Bowel Sounds. Negative for: Tenderness Upper Extremity: Positive for: Normal Inspection. Negative for: Cyanosis, Edema Lower Extremity: Positive for: Normal Inspection. Negative for: Edema Neurological: Positive for: GCS=15 Skin: Positive for: Warm, Dry Psychiatric: Positive for: Alert, Oriented x 3, Normal Insight - Medications Active Medications: Active Medications Generic Name Dose Route Start Last Admin Trade Name Freq PRN Reason Stop Dose Admin Albuterol/Ipratropium 3 ml 09/04/16 20:00 09/08/16 01:07 Duoneb 3 Mg/0.5 Mg (3 Ml) Ud INH 3 ml RQ6 CHRISTINA Administration Aspirin 81 mg 09/05/16 10:00 09/07/16 09:34 Aspirin Chewable PO 81 mg DAILY CHRISTINA Administration Heparin Sodium/Sodium Chloride 250 mls @ 8.638 mls/hr 09/07/16 09:12 09/07/16 14:58 Heparin 58167 Units/250ml 1/2 Normal Saline IV 12 units/kg/hr .Q24H PRN Titration PROTOCOL Protocol 12 UNITS/KG/HR Propofol 100 mls @ 2.16 mls/hr 09/07/16 14:20 09/07/16 21:59 Diprivan IV 8.6 mls/hr .Q24H PRN Administration TITRATE PER MD ORDER Protocol 5 MCG/KG/MIN Piperacillin Sod/Tazobactam 100 mls @ 200 mls/hr 09/07/16 16:00 09/08/16 07:39 Sod 2.25 gm/ Sodium Chloride IVPB 200 mls/hr Q8H CHRISTINA Administration Cisatracurium Besylate 100 mg/ 250 mls @ 10.79 mls/hr 09/07/16 14:45 09/07/16 16:57 Dextrose IV 0.5 mcg/kg/min .[id number] PRN Titration PROTOCOL Protocol 1 MCG/KG/MIN Insulin Aspart 0 unit 09/08/16 00:00 09/08/16 06:01 Novolog SC 6 unit Q6H CHRISTINA Administration Protocol Insulin Detemir 16 unit 09/04/16 22:00 09/07/16 22:00 Levemir SC 16 unit HS CHRISTINA Administration Isosorbide Mononitrate 60 mg 09/05/16 10:00 09/07/16 09:32 Imdur PO 60 mg DAILY CHRISTINA Administration Levothyroxine Sodium 50 mcg 09/05/16 06:30 09/08/16 06:07 Synthroid PO 50 mcg DAILY@0630 CHRISTINA Administration Methylprednisolone 40 mg 09/07/16 22:00 09/08/16 06:00 Solu-Medrol IVP 40 mg Q8 CHRISTINA Administration Pantoprazole Sodium 40 mg 09/05/16 10:00 09/07/16 09:33 Protonix Ec Tab PO 40 mg DAILY CHRISTINA Administration Potassium Chloride 40 meq 09/08/16 08:00 Potassium Chloride Oral Soln NG 09/08/16 08:01 ONCE ONE Rosuvastatin Calcium 10 mg 09/04/16 21:15 09/07/16 22:00 Crestor PO 10 mg HS CHRISTINA Administration Sevelamer Carbonate 800 mg 09/04/16 18:00 09/07/16 19:00 Renvela PO Not Given TID CHRISTINA - Patient Studies Lab Studies: Lab Studies 09/08/16 09/08/16 09/08/16 Range/Units 06:15 05:50 05:25 WBC 8.3 (4.8-10.8) K/uL RBC 2.66 L (4.40-5.90) Mil/uL Hgb 8.5 L (12.0-18.0) g/dL Hct 24.4 L (35.0-51.0) % MCV 91.8 (80.0-94.0) fL MCH 31.9 H (27.0-31.0) pg MCHC 34.8 (33.0-37.0) g/dL RDW 13.6 (11.5-14.5) % Plt Count 216 (130-400) K/uL MPV 9.3 (7.2-11.7) fL Neut % (Auto) 88.3 H (50.0-75.0) % Lymph % (Auto) 8.3 L (20.0-40.0) % Traverse % (Auto) 3.0 (0.0-10.0) % Eos % (Auto) 0.0 (0.0-4.0) % Baso % (Auto) 0.4 (0.0-2.0) % Neut # 7.3 H (1.8-7.0) K/uL Lymph # 0.7 L (1.0-4.3) K/uL Traverse # 0.2 (0.0-0.8) K/uL Eos # 0.0 (0.0-0.7) K/uL Baso # 0.0 (0.0-0.2) K/uL Neutrophils % (Manual) (50-75) % Band Neutrophils % (0-2) % Lymphocytes % (Manual) (20-40) % Reactive Lymphs % (0-0) % Monocytes % (Manual) (0-10) % Platelet Estimate (NORMAL) Large Platelets RBC Morphology Hypochromasia (manual) Microcytosis (manual) Tear Drop Cells PT (9.7-12.2) SECONDS INR APTT 69 H D (21-34) SECONDS Puncture Site Rrad pCO2 20 L (35-45) mm/Hg pO2 283 H (80-100) mm/Hg HCO3 26.4 (21-28) mmol/L ABG pH 7.65 H* (7.35-7.45) ABG Total CO2 22.6 (22-28) mmol/L ABG O2 Saturation 99.5 H (95-98) % ABG Base Excess 1.8 (-2.0-3.0) mmol/L ABG Hemoglobin 8.0 L (11.7-17.4) g/dL ABG Carboxyhemoglobin 1.0 (0.5-1.5) % POC ABG HHb (Measured) 0.5 (0.0-5.0) % ABG Methemoglobin 1.1 (0.0-3.0) % Tejinder Test Pos ABG Potassium (3.6-5.2) mmol/L A-a O2 Difference 405.0 mm/Hg Respiratory Index 1.4 Hgb O2 Saturation 97.4 (95.0-98.0) % Glucose (75-110) mg/dl Lactate (0.7-2.1) mmol/L Mechanical Rate 24 FiO2 100.0 % Tidal Volume 550 PEEP 10 Inspiratory BiPAP Expiratory BiPAP Crit Value Called To I lomiguen rn Crit Value Called By Estela herron manager operational Crit Value Read Back Y Blood Gas Notified Time 551 Sodium 137 (132-148) mmol/L Potassium 3.4 L (3.6-5.2) mmol/L Chloride 100 (98-107) mmol/L Carbon Dioxide 18 L (22-30) mmol/L Anion Gap 22 H (10-20) BUN 75 H (9-20) mg/dL Creatinine 4.3 H (0.8-1.5) MG/DL Est GFR ( Amer) 16 Est GFR (Non-Af Amer) 13 POC Glucose (mg/dL) 314 H (65-110) mg/dL Random Glucose 285 H (75-110) mg/dL Calcium 7.5 L (8.6-10.4) mg/dl Phosphorus 3.0 (2.5-4.5) mg/dL Magnesium 2.3 (1.6-2.3) mg/dL Total Bilirubin 0.6 (0.2-1.3) mg/dL AST 18 (17-59) U/L ALT 23 (21-72) U/L Alkaline Phosphatase 65 (38-126) U/L Troponin I (0.00-0.120) ng/mL Total Protein 5.7 L (6.3-8.3) g/dL Albumin 2.9 L (3.5-5.0) g/dL Globulin 2.9 (2.2-3.9) gm/dL Albumin/Globulin Ratio 1.0 (1.0-2.1) Arterial Blood Potassium (3.6-5.2) mmol/L Mycoplasma pneumon IgM (NEGATIVE) 09/08/16 09/07/16 09/07/16 Range/Units 00:37 21:04 19:05 WBC 9.8 (4.8-10.8) K/uL RBC 2.75 L (4.40-5.90) Mil/uL Hgb 8.7 L (12.0-18.0) g/dL Hct 25.2 L (35.0-51.0) % MCV 91.9 (80.0-94.0) fL MCH 31.8 H (27.0-31.0) pg MCHC 34.7 (33.0-37.0) g/dL RDW 13.6 (11.5-14.5) % Plt Count 227 (130-400) K/uL MPV 9.0 (7.2-11.7) fL Neut % (Auto) 90.8 H (50.0-75.0) % Lymph % (Auto) 6.3 L (20.0-40.0) % Traverse % (Auto) 2.6 (0.0-10.0) % Eos % (Auto) 0.0 (0.0-4.0) % Baso % (Auto) 0.3 (0.0-2.0) % Neut # 8.9 H (1.8-7.0) K/uL Lymph # 0.6 L (1.0-4.3) K/uL Traverse # 0.3 (0.0-0.8) K/uL Eos # 0.0 (0.0-0.7) K/uL Baso # 0.0 (0.0-0.2) K/uL Neutrophils % (Manual) 90 H (50-75) % Band Neutrophils % 2 (0-2) % Lymphocytes % (Manual) 6 L (20-40) % Reactive Lymphs % (0-0) % Monocytes % (Manual) 2 (0-10) % Platelet Estimate Normal (NORMAL) Large Platelets Present RBC Morphology Hypochromasia (manual) Slight Microcytosis (manual) Slight Tear Drop Cells Slight PT (9.7-12.2) SECONDS INR APTT 51 H D (21-34) SECONDS Puncture Site pCO2 (35-45) mm/Hg pO2 (80-100) mm/Hg HCO3 (21-28) mmol/L ABG pH (7.35-7.45) ABG Total CO2 (22-28) mmol/L ABG O2 Saturation (95-98) % ABG Base Excess (-2.0-3.0) mmol/L ABG Hemoglobin (11.7-17.4) g/dL ABG Carboxyhemoglobin (0.5-1.5) % POC ABG HHb (Measured) (0.0-5.0) % ABG Methemoglobin (0.0-3.0) % Tejinder Test ABG Potassium (3.6-5.2) mmol/L A-a O2 Difference mm/Hg Respiratory Index Hgb O2 Saturation (95.0-98.0) % Glucose (75-110) mg/dl Lactate (0.7-2.1) mmol/L Mechanical Rate FiO2 % Tidal Volume PEEP Inspiratory BiPAP Expiratory BiPAP Crit Value Called To Crit Value Called By Crit Value Read Back Blood Gas Notified Time Sodium 135 (132-148) mmol/L Potassium 3.6 (3.6-5.2) mmol/L Chloride 95 L (98-107) mmol/L Carbon Dioxide 21 L (22-30) mmol/L Anion Gap 23 H (10-20) BUN 74 H (9-20) mg/dL Creatinine 4.0 H (0.8-1.5) MG/DL Est GFR ( Amer) 18 Est GFR (Non-Af Amer) 14 POC Glucose (mg/dL) 305 H 260 H (65-110) mg/dL Random Glucose 242 H (75-110) mg/dL Calcium 7.4 L (8.6-10.4) mg/dl Phosphorus 2.5 (2.5-4.5) mg/dL Magnesium 2.2 (1.6-2.3) mg/dL Total Bilirubin 0.7 (0.2-1.3) mg/dL AST 16 L (17-59) U/L ALT 19 L (21-72) U/L Alkaline Phosphatase 62 (38-126) U/L Troponin I (0.00-0.120) ng/mL Total Protein 5.9 L (6.3-8.3) g/dL Albumin 3.1 L (3.5-5.0) g/dL Globulin 2.8 (2.2-3.9) gm/dL Albumin/Globulin Ratio 1.1 (1.0-2.1) Arterial Blood Potassium (3.6-5.2) mmol/L Mycoplasma pneumon IgM (NEGATIVE) 09/07/16 09/07/16 09/07/16 Range/Units 16:15 12:35 11:33 WBC (4.8-10.8) K/uL RBC (4.40-5.90) Mil/uL Hgb (12.0-18.0) g/dL Hct (35.0-51.0) % MCV (80.0-94.0) fL MCH (27.0-31.0) pg MCHC (33.0-37.0) g/dL RDW (11.5-14.5) % Plt Count (130-400) K/uL MPV (7.2-11.7) fL Neut % (Auto) (50.0-75.0) % Lymph % (Auto) (20.0-40.0) % Traverse % (Auto) (0.0-10.0) % Eos % (Auto) (0.0-4.0) % Baso % (Auto) (0.0-2.0) % Neut # (1.8-7.0) K/uL Lymph # (1.0-4.3) K/uL Traverse # (0.0-0.8) K/uL Eos # (0.0-0.7) K/uL Baso # (0.0-0.2) K/uL Neutrophils % (Manual) (50-75) % Band Neutrophils % (0-2) % Lymphocytes % (Manual) (20-40) % Reactive Lymphs % (0-0) % Monocytes % (Manual) (0-10) % Platelet Estimate (NORMAL) Large Platelets RBC Morphology Hypochromasia (manual) Microcytosis (manual) Tear Drop Cells PT (9.7-12.2) SECONDS INR APTT (21-34) SECONDS Puncture Site Rra Rra pCO2 30 L 43 (35-45) mm/Hg pO2 47 L 42 L* (80-100) mm/Hg HCO3 26.5 24.8 (21-28) mmol/L ABG pH 7.52 H 7.38 (7.35-7.45) ABG Total CO2 25.4 26.7 (22-28) mmol/L ABG O2 Saturation 92.6 L 83.5 L (95-98) % ABG Base Excess 2.4 0.2 (-2.0-3.0) mmol/L ABG Hemoglobin 9.5 L (11.7-17.4) g/dL ABG Carboxyhemoglobin 1.7 H (0.5-1.5) % POC ABG HHb (Measured) 16.1 H (0.0-5.0) % ABG Methemoglobin 0.7 (0.0-3.0) % Tejinder Test Pos Po ABG Potassium 3.4 L (3.6-5.2) mmol/L A-a O2 Difference 629.0 617.0 mm/Hg Respiratory Index 13.4 14.7 Hgb O2 Saturation 81.4 L (95.0-98.0) % Glucose 238 H (75-110) mg/dl Lactate 1.6 (0.7-2.1) mmol/L Mechanical Rate 24 FiO2 100.0 100.0 % Tidal Volume 500 PEEP 8 Inspiratory BiPAP 16 Expiratory BiPAP 8 Crit Value Called To md Gonsalo Crit Value Called By Shay holt,manager operational Crit Value Read Back Y Blood Gas Notified Time 1245 Sodium 140.0 (132-148) mmol/L Potassium (3.6-5.2) mmol/L Chloride 108.0 H (98-107) mmol/L Carbon Dioxide (22-30) mmol/L Anion Gap (10-20) BUN (9-20) mg/dL Creatinine (0.8-1.5) MG/DL Est GFR ( Amer) Est GFR (Non-Af Amer) POC Glucose (mg/dL) 396 H (65-110) mg/dL Random Glucose (75-110) mg/dL Calcium (8.6-10.4) mg/dl Phosphorus (2.5-4.5) mg/dL Magnesium (1.6-2.3) mg/dL Total Bilirubin (0.2-1.3) mg/dL AST (17-59) U/L ALT (21-72) U/L Alkaline Phosphatase (38-126) U/L Troponin I (0.00-0.120) ng/mL Total Protein (6.3-8.3) g/dL Albumin (3.5-5.0) g/dL Globulin (2.2-3.9) gm/dL Albumin/Globulin Ratio (1.0-2.1) Arterial Blood Potassium 3.4 L (3.6-5.2) mmol/L Mycoplasma pneumon IgM (NEGATIVE) 09/07/16 Range/Units 09:10 WBC 12.5 H (4.8-10.8) K/uL RBC 3.28 L (4.40-5.90) Mil/uL Hgb 10.0 L (12.0-18.0) g/dL Hct 30.6 L (35.0-51.0) % MCV 93.1 (80.0-94.0) fL MCH 30.5 (27.0-31.0) pg MCHC 32.7 L (33.0-37.0) g/dL RDW 13.5 (11.5-14.5) % Plt Count 260 (130-400) K/uL MPV 8.9 (7.2-11.7) fL Neut % (Auto) 83.7 H (50.0-75.0) % Lymph % (Auto) 8.9 L (20.0-40.0) % Traverse % (Auto) 6.8 (0.0-10.0) % Eos % (Auto) 0.1 (0.0-4.0) % Baso % (Auto) 0.5 (0.0-2.0) % Neut # 10.4 H (1.8-7.0) K/uL Lymph # 1.1 (1.0-4.3) K/uL Traverse # 0.9 H (0.0-0.8) K/uL Eos # 0.0 (0.0-0.7) K/uL Baso # 0.1 (0.0-0.2) K/uL Neutrophils % (Manual) 79 H (50-75) % Band Neutrophils % 1 (0-2) % Lymphocytes % (Manual) 11 L (20-40) % Reactive Lymphs % 2 H (0-0) % Monocytes % (Manual) 7 (0-10) % Platelet Estimate Normal (NORMAL) Large Platelets RBC Morphology Normal Hypochromasia (manual) Microcytosis (manual) Tear Drop Cells PT 12.2 (9.7-12.2) SECONDS INR 1.1 APTT 29 (21-34) SECONDS Puncture Site pCO2 (35-45) mm/Hg pO2 (80-100) mm/Hg HCO3 (21-28) mmol/L ABG pH (7.35-7.45) ABG Total CO2 (22-28) mmol/L ABG O2 Saturation (95-98) % ABG Base Excess (-2.0-3.0) mmol/L ABG Hemoglobin (11.7-17.4) g/dL ABG Carboxyhemoglobin (0.5-1.5) % POC ABG HHb (Measured) (0.0-5.0) % ABG Methemoglobin (0.0-3.0) % Tejinder Test ABG Potassium (3.6-5.2) mmol/L A-a O2 Difference mm/Hg Respiratory Index Hgb O2 Saturation (95.0-98.0) % Glucose (75-110) mg/dl Lactate (0.7-2.1) mmol/L Mechanical Rate FiO2 % Tidal Volume PEEP Inspiratory BiPAP Expiratory BiPAP Crit Value Called To Crit Value Called By Crit Value Read Back Blood Gas Notified Time Sodium 138 (132-148) mmol/L Potassium 4.1 (3.6-5.2) mmol/L Chloride 93 L (98-107) mmol/L Carbon Dioxide 25 (22-30) mmol/L Anion Gap 24 H (10-20) BUN 72 H (9-20) mg/dL Creatinine 3.8 H (0.8-1.5) MG/DL Est GFR ( Amer) 19 Est GFR (Non-Af Amer) 15 POC Glucose (mg/dL) (65-110) mg/dL Random Glucose 323 H (75-110) mg/dL Calcium 7.8 L (8.6-10.4) mg/dl Phosphorus (2.5-4.5) mg/dL Magnesium (1.6-2.3) mg/dL Total Bilirubin 0.8 (0.2-1.3) mg/dL AST 16 L (17-59) U/L ALT 19 L D (21-72) U/L Alkaline Phosphatase 73 (38-126) U/L Troponin I 1.0100 H* (0.00-0.120) ng/mL Total Protein 7.1 (6.3-8.3) g/dL Albumin 3.8 (3.5-5.0) g/dL Globulin 3.3 (2.2-3.9) gm/dL Albumin/Globulin Ratio 1.2 (1.0-2.1) Arterial Blood Potassium (3.6-5.2) mmol/L Mycoplasma pneumon IgM Negative (NEGATIVE) Laboratory Results - last 24 hr 09/07/16 09/07/16 09/07/16 09:10 11:33 12:35 WBC 12.5 H RBC 3.28 L Hgb 10.0 L Hct 30.6 L MCV 93.1 MCH 30.5 MCHC 32.7 L RDW 13.5 Plt Count 260 MPV 8.9 Neut % (Auto) 83.7 H Lymph % (Auto) 8.9 L Traverse % (Auto) 6.8 Eos % (Auto) 0.1 Baso % (Auto) 0.5 Neut # 10.4 H Lymph # 1.1 Traverse # 0.9 H Eos # 0.0 Baso # 0.1 Neutrophils % (Manual) 79 H Band Neutrophils % 1 Lymphocytes % (Manual) 11 L Reactive Lymphs % 2 H Monocytes % (Manual) 7 Platelet Estimate Normal Large Platelets RBC Morphology Normal Hypochromasia (manual) Microcytosis (manual) Tear Drop Cells PT 12.2 INR 1.1 APTT 29 Puncture Site Rra pCO2 43 pO2 42 L* HCO3 24.8 ABG pH 7.38 ABG Total CO2 26.7 ABG O2 Saturation 83.5 L ABG Base Excess 0.2 ABG Hemoglobin 9.5 L ABG Carboxyhemoglobin 1.7 H POC ABG HHb (Measured) 16.1 H ABG Methemoglobin 0.7 Tejinder Test Po ABG Potassium A-a O2 Difference 617.0 Respiratory Index 14.7 Hgb O2 Saturation 81.4 L Glucose Lactate Mechanical Rate FiO2 100.0 Tidal Volume PEEP Inspiratory BiPAP 16 Expiratory BiPAP 8 Crit Value Called To md Gonsalo Crit Value Called By Shay holt,kaveh Crit Value Read Back Y Blood Gas Notified Time 1245 Sodium 138 Potassium 4.1 Chloride 93 L Carbon Dioxide 25 Anion Gap 24 H BUN 72 H Creatinine 3.8 H Est GFR ( Amer) 19 Est GFR (Non-Af Amer) 15 POC Glucose (mg/dL) 396 H Random Glucose 323 H Calcium 7.8 L Phosphorus Magnesium Total Bilirubin 0.8 AST 16 L ALT 19 L D Alkaline Phosphatase 73 Troponin I 1.0100 H* Total Protein 7.1 Albumin 3.8 Globulin 3.3 Albumin/Globulin Ratio 1.2 Arterial Blood Potassium Mycoplasma pneumon IgM Negative 09/07/16 09/07/16 09/07/16 16:15 19:05 21:04 WBC 9.8 RBC 2.75 L Hgb 8.7 L Hct 25.2 L MCV 91.9 MCH 31.8 H MCHC 34.7 RDW 13.6 Plt Count 227 MPV 9.0 Neut % (Auto) 90.8 H Lymph % (Auto) 6.3 L Traverse % (Auto) 2.6 Eos % (Auto) 0.0 Baso % (Auto) 0.3 Neut # 8.9 H Lymph # 0.6 L Traverse # 0.3 Eos # 0.0 Baso # 0.0 Neutrophils % (Manual) 90 H Band Neutrophils % 2 Lymphocytes % (Manual) 6 L Reactive Lymphs % Monocytes % (Manual) 2 Platelet Estimate Normal Large Platelets Present RBC Morphology Hypochromasia (manual) Slight Microcytosis (manual) Slight Tear Drop Cells Slight PT INR APTT 51 H D Puncture Site Rra pCO2 30 L pO2 47 L HCO3 26.5 ABG pH 7.52 H ABG Total CO2 25.4 ABG O2 Saturation 92.6 L ABG Base Excess 2.4 ABG Hemoglobin ABG Carboxyhemoglobin POC ABG HHb (Measured) ABG Methemoglobin Tejinder Test Pos ABG Potassium 3.4 L A-a O2 Difference 629.0 Respiratory Index 13.4 Hgb O2 Saturation Glucose 238 H Lactate 1.6 Mechanical Rate 24 FiO2 100.0 Tidal Volume 500 PEEP 8 Inspiratory BiPAP Expiratory BiPAP Crit Value Called To Crit Value Called By Crit Value Read Back Blood Gas Notified Time Sodium 140.0 135 Potassium 3.6 Chloride 108.0 H 95 L Carbon Dioxide 21 L Anion Gap 23 H BUN 74 H Creatinine 4.0 H Est GFR ( Amer) 18 Est GFR (Non-Af Amer) 14 POC Glucose (mg/dL) 260 H Random Glucose 242 H Calcium 7.4 L Phosphorus 2.5 Magnesium 2.2 Total Bilirubin 0.7 AST 16 L ALT 19 L Alkaline Phosphatase 62 Troponin I Total Protein 5.9 L Albumin 3.1 L Globulin 2.8 Albumin/Globulin Ratio 1.1 Arterial Blood Potassium 3.4 L Mycoplasma pneumon IgM 09/08/16 09/08/16 09/08/16 00:37 05:25 05:50 WBC RBC Hgb Hct MCV MCH MCHC RDW Plt Count MPV Neut % (Auto) Lymph % (Auto) Traverse % (Auto) Eos % (Auto) Baso % (Auto) Neut # Lymph # Traverse # Eos # Baso # Neutrophils % (Manual) Band Neutrophils % Lymphocytes % (Manual) Reactive Lymphs % Monocytes % (Manual) Platelet Estimate Large Platelets RBC Morphology Hypochromasia (manual) Microcytosis (manual) Tear Drop Cells PT INR APTT Puncture Site Rrad pCO2 20 L pO2 283 H HCO3 26.4 ABG pH 7.65 H* ABG Total CO2 22.6 ABG O2 Saturation 99.5 H ABG Base Excess 1.8 ABG Hemoglobin 8.0 L ABG Carboxyhemoglobin 1.0 POC ABG HHb (Measured) 0.5 ABG Methemoglobin 1.1 Tejinder Test Pos ABG Potassium A-a O2 Difference 405.0 Respiratory Index 1.4 Hgb O2 Saturation 97.4 Glucose Lactate Mechanical Rate 24 FiO2 100.0 Tidal Volume 550 PEEP 10 Inspiratory BiPAP Expiratory BiPAP Crit Value Called To Alexandrea farley rn Crit Value Called By Estela herron manager operational Crit Value Read Back Y Blood Gas Notified Time 551 Sodium Potassium Chloride Carbon Dioxide Anion Gap BUN Creatinine Est GFR ( Amer) Est GFR (Non-Af Amer) POC Glucose (mg/dL) 305 H 314 H Random Glucose Calcium Phosphorus Magnesium Total Bilirubin AST ALT Alkaline Phosphatase Troponin I Total Protein Albumin Globulin Albumin/Globulin Ratio Arterial Blood Potassium Mycoplasma pneumon IgM 09/08/16 06:15 WBC 8.3 RBC 2.66 L Hgb 8.5 L Hct 24.4 L MCV 91.8 MCH 31.9 H MCHC 34.8 RDW 13.6 Plt Count 216 MPV 9.3 Neut % (Auto) 88.3 H Lymph % (Auto) 8.3 L Traverse % (Auto) 3.0 Eos % (Auto) 0.0 Baso % (Auto) 0.4 Neut # 7.3 H Lymph # 0.7 L Traverse # 0.2 Eos # 0.0 Baso # 0.0 Neutrophils % (Manual) Band Neutrophils % Lymphocytes % (Manual) Reactive Lymphs % Monocytes % (Manual) Platelet Estimate Large Platelets RBC Morphology Hypochromasia (manual) Microcytosis (manual) Tear Drop Cells PT INR APTT 69 H D Puncture Site pCO2 pO2 HCO3 ABG pH ABG Total CO2 ABG O2 Saturation ABG Base Excess ABG Hemoglobin ABG Carboxyhemoglobin POC ABG HHb (Measured) ABG Methemoglobin Tejinder Test ABG Potassium A-a O2 Difference Respiratory Index Hgb O2 Saturation Glucose Lactate Mechanical Rate FiO2 Tidal Volume PEEP Inspiratory BiPAP Expiratory BiPAP Crit Value Called To Crit Value Called By Crit Value Read Back Blood Gas Notified Time Sodium 137 Potassium 3.4 L Chloride 100 Carbon Dioxide 18 L Anion Gap 22 H BUN 75 H Creatinine 4.3 H Est GFR ( Amer) 16 Est GFR (Non-Af Amer) 13 POC Glucose (mg/dL) Random Glucose 285 H Calcium 7.5 L Phosphorus 3.0 Magnesium 2.3 Total Bilirubin 0.6 AST 18 ALT 23 Alkaline Phosphatase 65 Troponin I Total Protein 5.7 L Albumin 2.9 L Globulin 2.9 Albumin/Globulin Ratio 1.0 Arterial Blood Potassium Mycoplasma pneumon IgM Fingerstick Blood Sugar Results: 305 Critical Care Progress Note - Nutrition Nutrition: Nutrition Category Date Time Status Renal Diet [DIET] Diets 09/04/16 Lunch Active Assessment/Plan - Assessment and Plan (Free Text) Assessment: 81 year old with DM, HTN, CKD, meningeoma, admitted with shortness of breath requiring BiPAP. CXR reveals pulmonary edema. Elevated troponins, diagnosed with NSTEMI. Plan: Neuro: Intubated Pulm: Patient intubated due to ARDS and likely pneumonia ABG: revealed respiratory alkalosis, vent settings changed to (PRVC: FiO2 70%, Tvolume 500, resp rate 12, peep 5), saturating at 95% Duonebs Q6H, Imdur, Solumedrol 40 Q8H Patient had PICC line placed for heparin drip Zosyn 2.25mg Q8H renally dosed 09/08 CXR: Prominent diffuse increased intersitial lung markings suggestive for moderate to severe venous congestion versus diffuse increased interstitial infiltrates. Right hilar prominence. Lines and tubes stable position. Blunted bilateral costophrenic angles. CV: Plan for Cardiac Catherization with Dr. Garcia- kristofer to be discussed Elevated troponins: NSTEMI; PICC line placed, started on Heparin drip ECHO: Left ventricle mildly dilated. Anteroapical and inferoapical hypokinesis. Grade 3 restrictive diastolic dysfunction. Moderate TR, Pulm HTN, MR and mild AR. No pericardial effusion. HLD: Crestor 10mg PO QHS CAD: ASA Hypokalemia - repleted, follow up am labs Renal: LUIS EDUARDO on CKD Renvela 800mg PO TID Dr. Cain consulted - help appreciated Endo: DM: Levemir 16 units QHS, ISS -high Hypothyroidism: 50 mcg PO daily ID: Worsening pneumonia Afebrile, no white count Lactate level 1.6 Blood cultures negative x [address] Price consulted - help appreciated F/U Procalcitonin Prophylaxis: Protonix 40mg PO daily Heparin Drip DW Geo Duncan DO, PGY-1 <Elkin Castro S - Last Filed: 09/08/16 18:44> CCU Objective - Vital Signs / Intake & Output Vital Signs (Last 4 hours): Vital Signs Temp Pulse Resp BP Pulse Ox 09/08/16 18:00 97 H 16 109/55 L 94 L 09/08/16 17:00 93 H 17 116/61 95 09/08/16 16:00 97.4 F L 89 15 107/57 L 96 09/08/16 15:00 86 16 108/64 97 Intake and Output (Last 8hrs): Intake & Output 09/08/16 09/08/16 09/08/16 06:59 14:59 22:59 Intake Total 268.0 418.8 217.8 Output Total 300 250 185 Balance -32.0 168.8 32.8 Intake: Intake, IV Amount 268.0 168.8 67.8 Left Antecubital 68.8 43.0 Right Forearm 100 Right Proximal Port PICC 56.0 56.8 28 Right Distal Port PICC 43.2 43.2 5.4 Right PICC 25.8 34.4 Tube Feeding 50 150 Other 200 Output: Urine 300 250 185 Urethral (Garza) 300 250 185 - Medications Active Medications: Active Medications Generic Name Dose Route Start Last Admin Trade Name Freq PRN Reason Stop Dose Admin Albuterol/Ipratropium 3 ml 09/04/16 20:00 09/08/16 13:33 Duoneb 3 Mg/0.5 Mg (3 Ml) Ud INH 3 ml RQ6 CHRISTINA Administration Aspirin 81 mg 09/05/16 10:00 09/08/16 10:52 Aspirin Chewable PO 81 mg DAILY CHRISTINA Administration Epoetin Dominik 10,000 unit 09/10/16 10:00 Procrit SC TTS CHRISTINA Heparin Sodium/Sodium Chloride 250 mls @ 8.638 mls/hr 09/07/16 09:12 09/08/16 16:36 Heparin 94379 Units/250ml 1/2 Normal Saline IV 8.638 mls/hr .Q24H PRN Administration PROTOCOL Protocol 12 UNITS/KG/HR Propofol 100 mls @ 2.16 mls/hr 09/07/16 14:20 09/08/16 12:17 Diprivan IV 7 mls/hr .Q24H PRN Administration TITRATE PER MD ORDER Protocol 5 MCG/KG/MIN Insulin Aspart 0 unit 09/08/16 18:00 09/08/16 18:00 Novolog SC 10 unit Q6 CHRISTINA Administration Protocol Insulin Detemir 16 unit 09/04/16 22:00 09/07/16 22:00 Levemir SC 16 unit HS CHRISTINA Administration Isosorbide Mononitrate 60 mg 09/05/16 10:00 09/08/16 10:51 Imdur PO 60 mg DAILY CHRISTINA Administration Levothyroxine Sodium 50 mcg 09/05/16 06:30 09/08/16 06:07 Synthroid PO 50 mcg DAILY@0630 CHRISTINA Administration Methylprednisolone 40 mg 09/07/16 22:00 09/08/16 13:48 Solu-Medrol IVP 40 mg Q8 CHRISTINA Administration Pantoprazole Sodium 40 mg 09/08/16 10:15 09/08/16 10:52 Protonix Susp PO 40 mg DAILY CHRISTINA Administration Rosuvastatin Calcium 10 mg 09/04/16 21:15 09/07/16 22:00 Crestor PO 10 mg HS CHRISTINA Administration - Patient Studies Lab Studies: Lab Studies 09/08/16 09/08/16 09/08/16 Range/Units 17:50 16:35 12:00 WBC (4.8-10.8) K/uL RBC (4.40-5.90) Mil/uL Hgb (12.0-18.0) g/dL Hct (35.0-51.0) % MCV (80.0-94.0) fL MCH (27.0-31.0) pg MCHC (33.0-37.0) g/dL RDW (11.5-14.5) % Plt Count (130-400) K/uL MPV (7.2-11.7) fL Neut % (Auto) (50.0-75.0) % Lymph % (Auto) (20.0-40.0) % Traverse % (Auto) (0.0-10.0) % Eos % (Auto) (0.0-4.0) % Baso % (Auto) (0.0-2.0) % Neut # (1.8-7.0) K/uL Lymph # (1.0-4.3) K/uL Traverse # (0.0-0.8) K/uL Eos # (0.0-0.7) K/uL Baso # (0.0-0.2) K/uL Neutrophils % (Manual) (50-75) % Band Neutrophils % (0-2) % Lymphocytes % (Manual) (20-40) % Monocytes % (Manual) (0-10) % Platelet Estimate (NORMAL) Large Platelets RBC Morphology Hypochromasia (manual) Microcytosis (manual) Tear Drop Cells APTT (21-34) SECONDS Puncture Site Rra pCO2 34 L (35-45) mm/Hg pO2 74 L (80-100) mm/Hg HCO3 24.3 (21-28) mmol/L ABG pH 7.44 (7.35-7.45) ABG Total CO2 24.1 (22-28) mmol/L ABG O2 Saturation 97.2 (95-98) % ABG Base Excess -0.8 (-2.0-3.0) mmol/L ABG Hemoglobin 8.4 L (11.7-17.4) g/dL ABG Carboxyhemoglobin 1.2 (0.5-1.5) % POC ABG HHb (Measured) 2.7 (0.0-5.0) % ABG Methemoglobin 1.1 (0.0-3.0) % Tejinder Test Pos A-a O2 Difference 383.0 mm/Hg Respiratory Index 5.2 Hgb O2 Saturation 95.1 (95.0-98.0) % Mechanical Rate 12 FiO2 70.0 % Tidal Volume 500 PEEP 5 Crit Value Called To Crit Value Called By Crit Value Read Back Blood Gas Notified Time Sodium (132-148) mmol/L Potassium (3.6-5.2) mmol/L Chloride (98-107) mmol/L Carbon Dioxide (22-30) mmol/L Anion Gap (10-20) BUN (9-20) mg/dL Creatinine (0.8-1.5) MG/DL Est GFR ( Amer) Est GFR (Non-Af Amer) POC Glucose (mg/dL) 381 H 364 H (65-110) mg/dL Random Glucose (75-110) mg/dL Calcium (8.6-10.4) mg/dl Phosphorus (2.5-4.5) mg/dL Magnesium (1.6-2.3) mg/dL Total Bilirubin (0.2-1.3) mg/dL AST (17-59) U/L ALT (21-72) U/L Alkaline Phosphatase (38-126) U/L Total Protein (6.3-8.3) g/dL Albumin (3.5-5.0) g/dL Globulin (2.2-3.9) gm/dL Albumin/Globulin Ratio (1.0-2.1) Procalcitonin (0.19-0.49) NG/ML 09/08/16 09/08/16 09/08/16 Range/Units 10:01 06:15 05:50 WBC 8.3 (4.8-10.8) K/uL RBC 2.66 L (4.40-5.90) Mil/uL Hgb 8.5 L (12.0-18.0) g/dL Hct 24.4 L (35.0-51.0) % MCV 91.8 (80.0-94.0) fL MCH 31.9 H (27.0-31.0) pg MCHC 34.8 (33.0-37.0) g/dL RDW 13.6 (11.5-14.5) % Plt Count 216 (130-400) K/uL MPV 9.3 (7.2-11.7) fL Neut % (Auto) 88.3 H (50.0-75.0) % Lymph % (Auto) 8.3 L (20.0-40.0) % Traverse % (Auto) 3.0 (0.0-10.0) % Eos % (Auto) 0.0 (0.0-4.0) % Baso % (Auto) 0.4 (0.0-2.0) % Neut # 7.3 H (1.8-7.0) K/uL Lymph # 0.7 L (1.0-4.3) K/uL Traverse # 0.2 (0.0-0.8) K/uL Eos # 0.0 (0.0-0.7) K/uL Baso # 0.0 (0.0-0.2) K/uL Neutrophils % (Manual) 96 H (50-75) % Band Neutrophils % (0-2) % Lymphocytes % (Manual) 3 L (20-40) % Monocytes % (Manual) 1 (0-10) % Platelet Estimate Normal (NORMAL) Large Platelets RBC Morphology Normal Hypochromasia (manual) Microcytosis (manual) Tear Drop Cells APTT 69 H D (21-34) SECONDS Puncture Site pCO2 (35-45) mm/Hg pO2 (80-100) mm/Hg HCO3 (21-28) mmol/L ABG pH (7.35-7.45) ABG Total CO2 (22-28) mmol/L ABG O2 Saturation (95-98) % ABG Base Excess (-2.0-3.0) mmol/L ABG Hemoglobin (11.7-17.4) g/dL ABG Carboxyhemoglobin (0.5-1.5) % POC ABG HHb (Measured) (0.0-5.0) % ABG Methemoglobin (0.0-3.0) % Tejinder Test A-a O2 Difference mm/Hg Respiratory Index Hgb O2 Saturation (95.0-98.0) % Mechanical Rate FiO2 % Tidal Volume PEEP Crit Value Called To Crit Value Called By Crit Value Read Back Blood Gas Notified Time Sodium 137 (132-148) mmol/L Potassium 3.4 L (3.6-5.2) mmol/L Chloride 100 (98-107) mmol/L Carbon Dioxide 18 L (22-30) mmol/L Anion Gap 22 H (10-20) BUN 75 H (9-20) mg/dL Creatinine 4.3 H (0.8-1.5) MG/DL Est GFR ( Amer) 16 Est GFR (Non-Af Amer) 13 POC Glucose (mg/dL) 314 H (65-110) mg/dL Random Glucose 285 H (75-110) mg/dL Calcium 7.5 L (8.6-10.4) mg/dl Phosphorus 3.0 (2.5-4.5) mg/dL Magnesium 2.3 (1.6-2.3) mg/dL Total Bilirubin 0.6 (0.2-1.3) mg/dL AST 18 (17-59) U/L ALT 23 (21-72) U/L Alkaline Phosphatase 65 (38-126) U/L Total Protein 5.7 L (6.3-8.3) g/dL Albumin 2.9 L (3.5-5.0) g/dL Globulin 2.9 (2.2-3.9) gm/dL Albumin/Globulin Ratio 1.0 (1.0-2.1) Procalcitonin 0.30 (0.19-0.49) NG/ML 09/08/16 09/08/16 09/07/16 Range/Units 05:25 00:37 21:04 WBC 9.8 (4.8-10.8) K/uL RBC 2.75 L (4.40-5.90) Mil/uL Hgb 8.7 L (12.0-18.0) g/dL Hct 25.2 L (35.0-51.0) % MCV 91.9 (80.0-94.0) fL MCH 31.8 H (27.0-31.0) pg MCHC 34.7 (33.0-37.0) g/dL RDW 13.6 (11.5-14.5) % Plt Count 227 (130-400) K/uL MPV 9.0 (7.2-11.7) fL Neut % (Auto) 90.8 H (50.0-75.0) % Lymph % (Auto) 6.3 L (20.0-40.0) % Traverse % (Auto) 2.6 (0.0-10.0) % Eos % (Auto) 0.0 (0.0-4.0) % Baso % (Auto) 0.3 (0.0-2.0) % Neut # 8.9 H (1.8-7.0) K/uL Lymph # 0.6 L (1.0-4.3) K/uL Traverse # 0.3 (0.0-0.8) K/uL Eos # 0.0 (0.0-0.7) K/uL Baso # 0.0 (0.0-0.2) K/uL Neutrophils % (Manual) 90 H (50-75) % Band Neutrophils % 2 (0-2) % Lymphocytes % (Manual) 6 L (20-40) % Monocytes % (Manual) 2 (0-10) % Platelet Estimate Normal (NORMAL) Large Platelets Present RBC Morphology Hypochromasia (manual) Slight Microcytosis (manual) Slight Tear Drop Cells Slight APTT 51 H D (21-34) SECONDS Puncture Site Rrad pCO2 20 L (35-45) mm/Hg pO2 283 H (80-100) mm/Hg HCO3 26.4 (21-28) mmol/L ABG pH 7.65 H* (7.35-7.45) ABG Total CO2 22.6 (22-28) mmol/L ABG O2 Saturation 99.5 H (95-98) % ABG Base Excess 1.8 (-2.0-3.0) mmol/L ABG Hemoglobin 8.0 L (11.7-17.4) g/dL ABG Carboxyhemoglobin 1.0 (0.5-1.5) % POC ABG HHb (Measured) 0.5 (0.0-5.0) % ABG Methemoglobin 1.1 (0.0-3.0) % Tejinder Test Pos A-a O2 Difference 405.0 mm/Hg Respiratory Index 1.4 Hgb O2 Saturation 97.4 (95.0-98.0) % Mechanical Rate 24 FiO2 100.0 % Tidal Volume 550 PEEP 10 Crit Value Called To Alexandrea farley rn Crit Value Called By Estela herron manager operational Crit Value Read Back Y Blood Gas Notified Time 551 Sodium 135 (132-148) mmol/L Potassium 3.6 (3.6-5.2) mmol/L Chloride 95 L (98-107) mmol/L Carbon Dioxide 21 L (22-30) mmol/L Anion Gap 23 H (10-20) BUN 74 H (9-20) mg/dL Creatinine 4.0 H (0.8-1.5) MG/DL Est GFR ( Amer) 18 Est GFR (Non-Af Amer) 14 POC Glucose (mg/dL) 305 H (65-110) mg/dL Random Glucose 242 H (75-110) mg/dL Calcium 7.4 L (8.6-10.4) mg/dl Phosphorus 2.5 (2.5-4.5) mg/dL Magnesium 2.2 (1.6-2.3) mg/dL Total Bilirubin 0.7 (0.2-1.3) mg/dL AST 16 L (17-59) U/L ALT 19 L (21-72) U/L Alkaline Phosphatase 62 (38-126) U/L Total Protein 5.9 L (6.3-8.3) g/dL Albumin 3.1 L (3.5-5.0) g/dL Globulin 2.8 (2.2-3.9) gm/dL Albumin/Globulin Ratio 1.1 (1.0-2.1) Procalcitonin (0.19-0.49) NG/ML 09/07/16 Range/Units 19:05 WBC (4.8-10.8) K/uL RBC (4.40-5.90) Mil/uL Hgb (12.0-18.0) g/dL Hct (35.0-51.0) % MCV (80.0-94.0) fL MCH (27.0-31.0) pg MCHC (33.0-37.0) g/dL RDW (11.5-14.5) % Plt Count (130-400) K/uL MPV (7.2-11.7) fL Neut % (Auto) (50.0-75.0) % Lymph % (Auto) (20.0-40.0) % Traverse % (Auto) (0.0-10.0) % Eos % (Auto) (0.0-4.0) % Baso % (Auto) (0.0-2.0) % Neut # (1.8-7.0) K/uL Lymph # (1.0-4.3) K/uL Traverse # (0.0-0.8) K/uL Eos # (0.0-0.7) K/uL Baso # (0.0-0.2) K/uL Neutrophils % (Manual) (50-75) % Band Neutrophils % (0-2) % Lymphocytes % (Manual) (20-40) % Monocytes % (Manual) (0-10) % Platelet Estimate (NORMAL) Large Platelets RBC Morphology Hypochromasia (manual) Microcytosis (manual) Tear Drop Cells APTT (21-34) SECONDS Puncture Site pCO2 (35-45) mm/Hg pO2 (80-100) mm/Hg HCO3 (21-28) mmol/L ABG pH (7.35-7.45) ABG Total CO2 (22-28) mmol/L ABG O2 Saturation (95-98) % ABG Base Excess (-2.0-3.0) mmol/L ABG Hemoglobin (11.7-17.4) g/dL ABG Carboxyhemoglobin (0.5-1.5) % POC ABG HHb (Measured) (0.0-5.0) % ABG Methemoglobin (0.0-3.0) % Tejinder Test A-a O2 Difference mm/Hg Respiratory Index Hgb O2 Saturation (95.0-98.0) % Mechanical Rate FiO2 % Tidal Volume PEEP Crit Value Called To Crit Value Called By Crit Value Read Back Blood Gas Notified Time Sodium (132-148) mmol/L Potassium (3.6-5.2) mmol/L Chloride (98-107) mmol/L Carbon Dioxide (22-30) mmol/L Anion Gap (10-20) BUN (9-20) mg/dL Creatinine (0.8-1.5) MG/DL Est GFR ( Amer) Est GFR (Non-Af Amer) POC Glucose (mg/dL) 260 H (65-110) mg/dL Random Glucose (75-110) mg/dL Calcium (8.6-10.4) mg/dl Phosphorus (2.5-4.5) mg/dL Magnesium (1.6-2.3) mg/dL Total Bilirubin (0.2-1.3) mg/dL AST (17-59) U/L ALT (21-72) U/L Alkaline Phosphatase (38-126) U/L Total Protein (6.3-8.3) g/dL Albumin (3.5-5.0) g/dL Globulin (2.2-3.9) gm/dL Albumin/Globulin Ratio (1.0-2.1) Procalcitonin (0.19-0.49) NG/ML Laboratory Results - last 24 hr 09/07/16 09/07/16 09/08/16 19:05 21:04 00:37 WBC 9.8 RBC 2.75 L Hgb 8.7 L Hct 25.2 L MCV 91.9 MCH 31.8 H MCHC 34.7 RDW 13.6 Plt Count 227 MPV 9.0 Neut % (Auto) 90.8 H Lymph % (Auto) 6.3 L Traverse % (Auto) 2.6 Eos % (Auto) 0.0 Baso % (Auto) 0.3 Neut # 8.9 H Lymph # 0.6 L Traverse # 0.3 Eos # 0.0 Baso # 0.0 Neutrophils % (Manual) 90 H Band Neutrophils % 2 Lymphocytes % (Manual) 6 L Monocytes % (Manual) 2 Platelet Estimate Normal Large Platelets Present RBC Morphology Hypochromasia (manual) Slight Microcytosis (manual) Slight Tear Drop Cells Slight APTT 51 H D Puncture Site pCO2 pO2 HCO3 ABG pH ABG Total CO2 ABG O2 Saturation ABG Base Excess ABG Hemoglobin ABG Carboxyhemoglobin POC ABG HHb (Measured) ABG Methemoglobin Tejinder Test A-a O2 Difference Respiratory Index Hgb O2 Saturation Mechanical Rate FiO2 Tidal Volume PEEP Crit Value Called To Crit Value Called By Crit Value Read Back Blood Gas Notified Time Sodium 135 Potassium 3.6 Chloride 95 L Carbon Dioxide 21 L Anion Gap 23 H BUN 74 H Creatinine 4.0 H Est GFR ( Amer) 18 Est GFR (Non-Af Amer) 14 POC Glucose (mg/dL) 260 H 305 H Random Glucose 242 H Calcium 7.4 L Phosphorus 2.5 Magnesium 2.2 Total Bilirubin 0.7 AST 16 L ALT 19 L Alkaline Phosphatase 62 Total Protein 5.9 L Albumin 3.1 L Globulin 2.8 Albumin/Globulin Ratio 1.1 Procalcitonin 09/08/16 09/08/16 09/08/16 05:25 05:50 06:15 WBC 8.3 RBC 2.66 L Hgb 8.5 L Hct 24.4 L MCV 91.8 MCH 31.9 H MCHC 34.8 RDW 13.6 Plt Count 216 MPV 9.3 Neut % (Auto) 88.3 H Lymph % (Auto) 8.3 L Traverse % (Auto) 3.0 Eos % (Auto) 0.0 Baso % (Auto) 0.4 Neut # 7.3 H Lymph # 0.7 L Traverse # 0.2 Eos # 0.0 Baso # 0.0 Neutrophils % (Manual) 96 H Band Neutrophils % Lymphocytes % (Manual) 3 L Monocytes % (Manual) 1 Platelet Estimate Normal Large Platelets RBC Morphology Normal Hypochromasia (manual) Microcytosis (manual) Tear Drop Cells APTT 69 H D Puncture Site Rrad pCO2 20 L pO2 283 H HCO3 26.4 ABG pH 7.65 H* ABG Total CO2 22.6 ABG O2 Saturation 99.5 H ABG Base Excess 1.8 ABG Hemoglobin 8.0 L ABG Carboxyhemoglobin 1.0 POC ABG HHb (Measured) 0.5 ABG Methemoglobin 1.1 Tejinder Test Pos A-a O2 Difference 405.0 Respiratory Index 1.4 Hgb O2 Saturation 97.4 Mechanical Rate 24 FiO2 100.0 Tidal Volume 550 PEEP 10 Crit Value Called To Alexandrea farley rn Crit Value Called By Estela herron manager operational Crit Value Read Back Y Blood Gas Notified Time 551 Sodium 137 Potassium 3.4 L Chloride 100 Carbon Dioxide 18 L Anion Gap 22 H BUN 75 H Creatinine 4.3 H Est GFR ( Amer) 16 Est GFR (Non-Af Amer) 13 POC Glucose (mg/dL) 314 H Random Glucose 285 H Calcium 7.5 L Phosphorus 3.0 Magnesium 2.3 Total Bilirubin 0.6 AST 18 ALT 23 Alkaline Phosphatase 65 Total Protein 5.7 L Albumin 2.9 L Globulin 2.9 Albumin/Globulin Ratio 1.0 Procalcitonin 09/08/16 09/08/16 09/08/16 10:01 12:00 16:35 WBC RBC Hgb Hct MCV MCH MCHC RDW Plt Count MPV Neut % (Auto) Lymph % (Auto) Traverse % (Auto) Eos % (Auto) Baso % (Auto) Neut # Lymph # Traverse # Eos # Baso # Neutrophils % (Manual) Band Neutrophils % Lymphocytes % (Manual) Monocytes % (Manual) Platelet Estimate Large Platelets RBC Morphology Hypochromasia (manual) Microcytosis (manual) Tear Drop Cells APTT Puncture Site Rra pCO2 34 L pO2 74 L HCO3 24.3 ABG pH 7.44 ABG Total CO2 24.1 ABG O2 Saturation 97.2 ABG Base Excess -0.8 ABG Hemoglobin 8.4 L ABG Carboxyhemoglobin 1.2 POC ABG HHb (Measured) 2.7 ABG Methemoglobin 1.1 Tejinder Test Pos A-a O2 Difference 383.0 Respiratory Index 5.2 Hgb O2 Saturation 95.1 Mechanical Rate 12 FiO2 70.0 Tidal Volume 500 PEEP 5 Crit Value Called To Crit Value Called By Crit Value Read Back Blood Gas Notified Time Sodium Potassium Chloride Carbon Dioxide Anion Gap BUN Creatinine Est GFR ( Amer) Est GFR (Non-Af Amer) POC Glucose (mg/dL) 364 H Random Glucose Calcium Phosphorus Magnesium Total Bilirubin AST ALT Alkaline Phosphatase Total Protein Albumin Globulin Albumin/Globulin Ratio Procalcitonin 0.30 09/08/16 17:50 WBC RBC Hgb Hct MCV MCH MCHC RDW Plt Count MPV Neut % (Auto) Lymph % (Auto) Traverse % (Auto) Eos % (Auto) Baso % (Auto) Neut # Lymph # Traverse # Eos # Baso # Neutrophils % (Manual) Band Neutrophils % Lymphocytes % (Manual) Monocytes % (Manual) Platelet Estimate Large Platelets RBC Morphology Hypochromasia (manual) Microcytosis (manual) Tear Drop Cells APTT Puncture Site pCO2 pO2 HCO3 ABG pH ABG Total CO2 ABG O2 Saturation ABG Base Excess ABG Hemoglobin ABG Carboxyhemoglobin POC ABG HHb (Measured) ABG Methemoglobin Tejinder Test A-a O2 Difference Respiratory Index Hgb O2 Saturation Mechanical Rate FiO2 Tidal Volume PEEP Crit Value Called To Crit Value Called By Crit Value Read Back Blood Gas Notified Time Sodium Potassium Chloride Carbon Dioxide Anion Gap BUN Creatinine Est GFR ( Amer) Est GFR (Non-Af Amer) POC Glucose (mg/dL) 381 H Random Glucose Calcium Phosphorus Magnesium Total Bilirubin AST ALT Alkaline Phosphatase Total Protein Albumin Globulin Albumin/Globulin Ratio Procalcitonin Critical Care Progress Note - Nutrition Nutrition: Nutrition Category Date Time Status Renal Diet [DIET] Diets 09/04/16 Lunch Active Assessment/Plan (1) Respiratory failure with hypoxia Current Visit: Yes Status: Acute (2) NSTEMI (non-ST elevation myocardial infarction) Current Visit: Yes Status: Acute (3) Acute kidney injury superimposed on CKD Current Visit: No Status: Chronic Comment: LUIS EDUARDO on CKD stage IV cont Renagel Renal Sono: no obstruction Nephrology- Dr Laguerre consulted- pt to ff up with dr Laguerre Attending/Attestation - Attestation I have personally seen and examined this patient.: Yes I have fully participated in the care of the patient.: Yes I have reviewed all pertinent clinical information: Yes Notes (Text): 09/08/16 18:43 patient seen and examined in the intensive care unit. Case discussed with house staff in the morning rounds. Remains intubated on ventilatory support Oxygenation improving FiO2 to 70% with PEEP of 5 Resolving CHF Consider to discontinue antibiotics as per calcitonin level within normal limits Continue diuretics Possible cardiac cath and hemodialysis
[2016-09-08] MEDS ORDERED: Potassium Chloride 20 mEq/15 ml LIQ UD NG ONE (08:00)
[2016-09-08 08:41] LABS: NEUTROPHIL 96 % (50-75); TOTAL CELLS COUNTED 100
--- NOTE | 2016-09-08 09:01 | RAD ---
HISTORY: ARDS COMPARISON: No prior. FINDINGS: LUNGS: Prominent diffuse increased interstitial lung markings suggestive for moderate to severe venous congestion versus diffuse increased interstitial infiltrates. Right hilar prominence. Lines and tubes stable position. Blunted bilateral costophrenic angles. PLEURA: As above. CARDIOVASCULAR: Calcification at the aortic knob. OSSEOUS STRUCTURES: No significant abnormalities. VISUALIZED UPPER ABDOMEN: Normal. OTHER FINDINGS: None. IMPRESSION: Prominent diffuse increased interstitial lung markings suggestive for moderate to severe venous congestion versus diffuse increased interstitial infiltrates. Right hilar prominence. Lines and tubes stable position. Blunted bilateral costophrenic angles.
[2016-09-08] MEDS ORDERED: (Novolog) Insulin Aspart, Recombinant 100 u/ml 10 ml vial SC SCH ×2 (09:17→12:00)
--- NOTE | 2016-09-08 10:31 | CP.PCM.PN ---
Subjective - Date & Time of Evaluation Date of Evaluation: 09/08/16 Time of Evaluation: 14:40 - Subjective Subjective: clinically same Dr. Castro and Dr. farida mina in icu iv Rx continue Objective - Vital Signs/Intake and Output Vital Signs (last 24 hours): Temp Pulse Resp BP Pulse Ox 97.2 F L 86 14 103/49 L 95 09/08/16 08:00 09/08/16 10:00 09/08/16 10:00 09/08/16 10:00 09/08/16 10:00 Intake and Output: 09/08/16 09/08/16 06:59 18:59 Intake Total 358.4 184.8 Output Total 460 120 Balance -101.6 64.8 - Medications Medications: Current Medications Albuterol/Ipratropium (Duoneb 3 Mg/0.5 Mg (3 Ml) Ud) 3 ml INH RQ6 CHRISTINA Last Admin: 09/08/16 08:00 Dose: 3 ml Aspirin (Aspirin Chewable) 81 mg PO DAILY [facility] Last Admin: 09/07/16 09:34 Dose: 81 mg Heparin Sodium/Sodium Chloride (Heparin 26958 Units/250ml 1/2 Normal Saline) 250 mls @ 8.638 mls/hr IV .Q24H PRN; Protocol; 12 UNITS/KG/HR PRN Reason: PROTOCOL Last Titration: 09/07/16 14:58 Dose: 12 units/kg/hr Propofol (Diprivan) 100 mls @ 2.16 mls/hr IV .Q24H PRN; Protocol; 5 MCG/KG/MIN PRN Reason: TITRATE PER MD ORDER Last Admin: 09/07/16 21:59 Dose: 8.6 mls/hr Piperacillin Sod/Tazobactam (Sod 2.25 gm/ Sodium Chloride) 100 mls @ 200 mls/ hr IVPB Q8H CHRISTINA Last Admin: 09/08/16 07:39 Dose: 200 mls/hr Cisatracurium Besylate 100 mg/ (Dextrose) 250 mls @ 10.79 mls/hr IV .[id number] PRN; Protocol; 1 MCG/KG/MIN PRN Reason: PROTOCOL Last Titration: 09/07/16 16:57 Dose: 0.5 mcg/kg/min Insulin Aspart (Novolog) 0 unit SC Q6 CHRISTINA PRN Reason: Protocol Insulin Detemir (Levemir) 16 unit SC [facility] Last Admin: 09/07/16 22:00 Dose: 16 unit Isosorbide Mononitrate (Imdur) 60 mg PO DAILY [facility] Last Admin: 09/07/16 09:32 Dose: 60 mg Levothyroxine Sodium (Synthroid) 50 mcg PO DAILY@0630 [facility] Last Admin: 09/08/16 06:07 Dose: 50 mcg Methylprednisolone (Solu-Medrol) 40 mg IVP Q8 [facility] Last Admin: 09/08/16 06:00 Dose: 40 mg Pantoprazole Sodium (Protonix Susp) 40 mg PO DAILY [facility] Rosuvastatin Calcium (Crestor) 10 mg PO HS [facility] Last Admin: 09/07/16 22:00 Dose: 10 mg Sevelamer Carbonate (Renvela) 800 mg PO TID [facility] Last Admin: 09/07/16 19:00 Dose: Not Given - Labs Labs: 09/08/16 06:15 09/08/16 06:15 PT 12.2 SECONDS (9.7-12.2) 09/07/16 09:10 INR 1.1 09/07/16 09:10 APTT 69 SECONDS (21-34) H D 09/08/16 06:15 - Constitutional Appears: Well - Head Exam Head Exam: ATRAUMATIC, NORMAL INSPECTION, NORMOCEPHALIC - Eye Exam Eye Exam: EOMI, Normal appearance, PERRL Pupil Exam: NORMAL ACCOMODATION, PERRL - ENT Exam ENT Exam: Mucous Membranes Moist, Normal Exam - Neck Exam Neck Exam: Full ROM, Normal Inspection. 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
[2016-09-08] MEDS: Pantoprazole 40 mg Susp UD PO SCH (10:52)
--- NOTE | 2016-09-08 10:53 | CP.PCM.CON ---
History of Present Illness - History of Present Illness History of Present Illness: HPI: 81 year old male with PMHx of DM, HTN, CKD, and meningeoma admitted on 12/14 for shortness of breath with 86-93% O2 saturation, requiring BiPAP. Patient was found to have elevated troponins. Patient was seen by cardiology, diagnosed as NSTEMI. Patient is complaining of cough but denies any other symptoms. Patient was transferred to the ICU, continued on BiPAP. PICC line was placed for venous access to start heparin drip. Patient was intubated due to respiratory distress. 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 PATIENT WITH CKD 4 HX Past Patient History - Past Medical History & Family History Past Medical History?: Yes - Past Social History Smoking Status: Never Smoked - CARDIAC Hx Cardiac Disorders: No Hx Congestive Heart Failure: No Hx Hypercholesterolemia: No Hx Hypertension: Yes - PULMONARY Hx Respiratory Disorders: No Hx Chronic Obstructive Pulmonary Disease (COPD): No - NEUROLOGICAL Hx Neurological Disorder: No HX Cerebrovascular Accident: No - HEENT Hx HEENT Problems: Yes Hx Cataracts: Yes (with surgery done and IOL) - RENAL Hx Chronic Kidney Disease: No - ENDOCRINE/METABOLIC Hx Endocrine Disorders: No - HEMATOLOGICAL/ONCOLOGICAL Hx Blood Disorders: No Hx Human Immunodeficiency Virus (HIV): No - INTEGUMENTARY Hx Dermatological Problems: No - MUSCULOSKELETAL/RHEUMATOLOGICAL Hx Musculoskeletal Disorders: No Hx Arthritis: No Hx Rheumatoid Arthritis: No - GASTROINTESTINAL Hx Gastrointestinal Disorders: No - GENITOURINARY/GYNECOLOGICAL Hx Genitourinary Disorders: No - PSYCHIATRIC Hx Substance Use: No - SURGICAL HISTORY Hx Surgeries: Yes Other/Comment: Bilateral neck surgery carotid artery - ANESTHESIA Hx Anesthesia: Yes Hx Anesthesia Reactions: No Meds Allergies/Adverse Reactions: Allergies Allergy/AdvReac Type Severity Reaction Status Date / Time No Known Allergies Allergy Verified 09/04/16 06:02 - Medications Medications: Current Medications Albuterol/Ipratropium (Duoneb 3 Mg/0.5 Mg (3 Ml) Ud) 3 ml INH RQ6 [facility] Last Admin: 09/08/16 08:00 Dose: 3 ml Aspirin (Aspirin Chewable) 81 mg PO DAILY [facility] Last Admin: 09/07/16 09:34 Dose: 81 mg Heparin Sodium/Sodium Chloride (Heparin 34853 Units/250ml 1/2 Normal Saline) 250 mls @ 8.638 mls/hr IV .Q24H PRN; Protocol; 12 UNITS/KG/HR PRN Reason: PROTOCOL Last Titration: 09/07/16 14:58 Dose: 12 units/kg/hr Propofol (Diprivan) 100 mls @ 2.16 mls/hr IV .Q24H PRN; Protocol; 5 MCG/KG/MIN PRN Reason: TITRATE PER MD ORDER Last Admin: 09/07/16 21:59 Dose: 8.6 mls/hr Piperacillin Sod/Tazobactam (Sod 2.25 gm/ Sodium Chloride) 100 mls @ 200 mls/ hr IVPB Q8H [facility] Last Admin: 09/08/16 07:39 Dose: 200 mls/hr Cisatracurium Besylate 100 mg/ (Dextrose) 250 mls @ 10.79 mls/hr IV .[id number] PRN; Protocol; 1 MCG/KG/MIN PRN Reason: PROTOCOL Last Titration: 09/07/16 16:57 Dose: 0.5 mcg/kg/min Insulin Aspart (Novolog) 0 unit SC Q6 [facility] PRN Reason: Protocol Insulin Detemir (Levemir) 16 unit SC HS [facility] Last Admin: 09/07/16 22:00 Dose: 16 unit Isosorbide Mononitrate (Imdur) 60 mg PO DAILY [facility] Last Admin: 09/07/16 09:32 Dose: 60 mg Levothyroxine Sodium (Synthroid) 50 mcg PO DAILY@0630 [facility] Last Admin: 09/08/16 06:07 Dose: 50 mcg Methylprednisolone (Solu-Medrol) 40 mg IVP Q8 [facility] Last Admin: 09/08/16 06:00 Dose: 40 mg Pantoprazole Sodium (Protonix Susp) 40 mg PO DAILY [facility] Rosuvastatin Calcium (Crestor) 10 mg PO HS [facility] Last Admin: 09/07/16 22:00 Dose: 10 mg Sevelamer Carbonate (Renvela) 800 mg PO TID [facility] Last Admin: 09/07/16 19:00 Dose: Not Given Results - Vital Signs Recent Vital Signs: Last Vital Signs Temp 97.2 F L 09/08/16 08:00 Pulse 86 09/08/16 10:00 Resp 14 09/08/16 10:00 BP 103/49 L 09/08/16 10:00 Pulse Ox 95 09/08/16 10:00 - Labs Result Diagrams: 09/08/16 06:15 09/08/16 06:15 Labs: Laboratory Results - last 24 hr 09/07/16 09/07/16 09/07/16 09:10 11:33 12:35 WBC RBC Hgb Hct MCV MCH MCHC RDW Plt Count MPV Neut % (Auto) Lymph % (Auto) [place] % (Auto) Eos % (Auto) Baso % (Auto) Neut # Lymph # [place] # Eos # Baso # Neutrophils % (Manual) Band Neutrophils % Lymphocytes % (Manual) Monocytes % (Manual) Platelet Estimate Large Platelets RBC Morphology Hypochromasia (manual) Microcytosis (manual) Tear Drop Cells APTT Puncture Site Rra pCO2 43 pO2 42 L* HCO3 24.8 ABG pH 7.38 ABG Total CO2 26.7 ABG O2 Saturation 83.5 L ABG Base Excess 0.2 ABG Hemoglobin 9.5 L ABG Carboxyhemoglobin 1.7 H POC ABG HHb (Measured) 16.1 H ABG Methemoglobin 0.7 Tejinder Test Po ABG Potassium A-a O2 Difference 617.0 Respiratory Index 14.7 Hgb O2 Saturation 81.4 L Sodium Chloride Glucose Lactate Mechanical Rate FiO2 100.0 Tidal Volume PEEP Inspiratory BiPAP 16 Expiratory BiPAP 8 Crit Value Called To md Gonsalo Crit Value Called By Shay holt,kaveh Crit Value Read Back Y Blood Gas Notified Time 1245 Potassium Carbon Dioxide Anion Gap BUN Creatinine Est GFR ( Amer) Est GFR (Non-Af Amer) POC Glucose (mg/dL) 396 H Random Glucose Calcium Phosphorus Magnesium Total Bilirubin AST ALT Alkaline Phosphatase Total Protein Albumin Globulin Albumin/Globulin Ratio Arterial Blood Potassium Mycoplasma pneumon IgM Negative 09/07/16 09/07/16 09/07/16 16:15 19:05 21:04 WBC 9.8 RBC 2.75 L Hgb 8.7 L Hct 25.2 L MCV 91.9 MCH 31.8 H MCHC 34.7 RDW 13.6 Plt Count 227 MPV 9.0 Neut % (Auto) 90.8 H Lymph % (Auto) 6.3 L [place] % (Auto) 2.6 Eos % (Auto) 0.0 Baso % (Auto) 0.3 Neut # 8.9 H Lymph # 0.6 L [place] # 0.3 Eos # 0.0 Baso # 0.0 Neutrophils % (Manual) 90 H Band Neutrophils % 2 Lymphocytes % (Manual) 6 L Monocytes % (Manual) 2 Platelet Estimate Normal Large Platelets Present RBC Morphology Hypochromasia (manual) Slight Microcytosis (manual) Slight Tear Drop Cells Slight APTT 51 H D Puncture Site Rra pCO2 30 L pO2 47 L HCO3 26.5 ABG pH 7.52 H ABG Total CO2 25.4 ABG O2 Saturation 92.6 L ABG Base Excess 2.4 ABG Hemoglobin ABG Carboxyhemoglobin POC ABG HHb (Measured) ABG Methemoglobin Tejinder Test Pos ABG Potassium 3.4 L A-a O2 Difference 629.0 Respiratory Index 13.4 Hgb O2 Saturation Sodium 140.0 135 Chloride 108.0 H 95 L Glucose 238 H Lactate 1.6 Mechanical Rate 24 FiO2 100.0 Tidal Volume 500 PEEP 8 Inspiratory BiPAP Expiratory BiPAP Crit Value Called To Crit Value Called By Crit Value Read Back Blood Gas Notified Time Potassium 3.6 Carbon Dioxide 21 L Anion Gap 23 H BUN 74 H Creatinine 4.0 H Est GFR ( Amer) 18 Est GFR (Non-Af Amer) 14 POC Glucose (mg/dL) 260 H Random Glucose 242 H Calcium 7.4 L Phosphorus 2.5 Magnesium 2.2 Total Bilirubin 0.7 AST 16 L ALT 19 L Alkaline Phosphatase 62 Total Protein 5.9 L Albumin 3.1 L Globulin 2.8 Albumin/Globulin Ratio 1.1 Arterial Blood Potassium 3.4 L Mycoplasma pneumon IgM 09/08/16 09/08/16 09/08/16 00:37 05:25 05:50 WBC RBC Hgb Hct MCV MCH MCHC RDW Plt Count MPV Neut % (Auto) Lymph % (Auto) [place] % (Auto) Eos % (Auto) Baso % (Auto) Neut # Lymph # [place] # Eos # Baso # Neutrophils % (Manual) Band Neutrophils % Lymphocytes % (Manual) Monocytes % (Manual) Platelet Estimate Large Platelets RBC Morphology Hypochromasia (manual) Microcytosis (manual) Tear Drop Cells APTT Puncture Site Rrad pCO2 20 L pO2 283 H HCO3 26.4 ABG pH 7.65 H* ABG Total CO2 22.6 ABG O2 Saturation 99.5 H ABG Base Excess 1.8 ABG Hemoglobin 8.0 L ABG Carboxyhemoglobin 1.0 POC ABG HHb (Measured) 0.5 ABG Methemoglobin 1.1 Tejinder Test Pos ABG Potassium A-a O2 Difference 405.0 Respiratory Index 1.4 Hgb O2 Saturation 97.4 Sodium Chloride Glucose Lactate Mechanical Rate 24 FiO2 100.0 Tidal Volume 550 PEEP 10 Inspiratory BiPAP Expiratory BiPAP Crit Value Called To Alexandrea farley rn Crit Value Called By Estela herron rrt Crit Value Read Back Y Blood Gas Notified Time 551 Potassium Carbon Dioxide Anion Gap BUN Creatinine Est GFR ( Amer) Est GFR (Non-Af Amer) POC Glucose (mg/dL) 305 H 314 H Random Glucose Calcium Phosphorus Magnesium Total Bilirubin AST ALT Alkaline Phosphatase Total Protein Albumin Globulin Albumin/Globulin Ratio Arterial Blood Potassium Mycoplasma pneumon IgM 09/08/16 06:15 WBC 8.3 RBC 2.66 L Hgb 8.5 L Hct 24.4 L MCV 91.8 MCH 31.9 H MCHC 34.8 RDW 13.6 Plt Count 216 MPV 9.3 Neut % (Auto) 88.3 H Lymph % (Auto) 8.3 L [place] % (Auto) 3.0 Eos % (Auto) 0.0 Baso % (Auto) 0.4 Neut # 7.3 H Lymph # 0.7 L [place] # 0.2 Eos # 0.0 Baso # 0.0 Neutrophils % (Manual) 96 H Band Neutrophils % Lymphocytes % (Manual) 3 L Monocytes % (Manual) 1 Platelet Estimate Normal Large Platelets RBC Morphology Normal Hypochromasia (manual) Microcytosis (manual) Tear Drop Cells APTT 69 H D Puncture Site pCO2 pO2 HCO3 ABG pH ABG Total CO2 ABG O2 Saturation ABG Base Excess ABG Hemoglobin ABG Carboxyhemoglobin POC ABG HHb (Measured) ABG Methemoglobin Tejinder Test ABG Potassium A-a O2 Difference Respiratory Index Hgb O2 Saturation Sodium 137 Chloride 100 Glucose Lactate Mechanical Rate FiO2 Tidal Volume PEEP Inspiratory BiPAP Expiratory BiPAP Crit Value Called To Crit Value Called By Crit Value Read Back Blood Gas Notified Time Potassium 3.4 L Carbon Dioxide 18 L Anion Gap 22 H BUN 75 H Creatinine 4.3 H Est GFR ( Amer) 16 Est GFR (Non-Af Amer) 13 POC Glucose (mg/dL) Random Glucose 285 H Calcium 7.5 L Phosphorus 3.0 Magnesium 2.3 Total Bilirubin 0.6 AST 18 ALT 23 Alkaline Phosphatase 65 Total Protein 5.7 L Albumin 2.9 L Globulin 2.9 Albumin/Globulin Ratio 1.0 Arterial Blood Potassium Mycoplasma pneumon IgM
--- NOTE | 2016-09-08 11:19 | CP.PCM.CON ---
History of Present Illness - History of Present Illness History of Present Illness: events noted admitted with CHF/ resp failure r/o pneumonia and sepsis sedated on vent has ARF - renal on board iv rx in progress full consult to follow Review of Systems - Review of Systems Systems not reviewed;Unavailable: Altered Mental Status Past Patient History - Past Medical History & Family History Past Medical History?: Yes - Past Social History Smoking Status: Never Smoked - CARDIAC Hx Cardiac Disorders: No Hx Congestive Heart Failure: No Hx Hypercholesterolemia: No Hx Hypertension: Yes - PULMONARY Hx Respiratory Disorders: No Hx Chronic Obstructive Pulmonary Disease (COPD): No - NEUROLOGICAL Hx Neurological Disorder: No HX Cerebrovascular Accident: No - HEENT Hx HEENT Problems: Yes Hx Cataracts: Yes (with surgery done and IOL) - RENAL Hx Chronic Kidney Disease: No - ENDOCRINE/METABOLIC Hx Endocrine Disorders: No - HEMATOLOGICAL/ONCOLOGICAL Hx Blood Disorders: No Hx Human Immunodeficiency Virus (HIV): No - INTEGUMENTARY Hx Dermatological Problems: No - MUSCULOSKELETAL/RHEUMATOLOGICAL Hx Musculoskeletal Disorders: No Hx Arthritis: No Hx Rheumatoid Arthritis: No - GASTROINTESTINAL Hx Gastrointestinal Disorders: No - GENITOURINARY/GYNECOLOGICAL Hx Genitourinary Disorders: No - PSYCHIATRIC Hx Substance Use: No - SURGICAL HISTORY Hx Surgeries: Yes Other/Comment: Bilateral neck surgery carotid artery - ANESTHESIA Hx Anesthesia: Yes Hx Anesthesia Reactions: No Meds Allergies/Adverse Reactions: Allergies Allergy/AdvReac Type Severity Reaction Status Date / Time No Known Allergies Allergy Verified 09/04/16 06:02 - Medications Medications: Current Medications Albuterol/Ipratropium (Duoneb 3 Mg/0.5 Mg (3 Ml) Ud) 3 ml INH RQ6 [facility] Last Admin: 09/08/16 08:00 Dose: 3 ml Aspirin (Aspirin Chewable) 81 mg PO DAILY [facility] Last Admin: 09/08/16 10:52 Dose: 81 mg Epoetin Dominik (Procrit) 10,000 unit SC TTS [facility] Heparin Sodium/Sodium Chloride (Heparin 50759 Units/250ml 1/2 Normal Saline) 250 mls @ 8.638 mls/hr IV .Q24H PRN; Protocol; 12 UNITS/KG/HR PRN Reason: PROTOCOL Last Titration: 09/07/16 14:58 Dose: 12 units/kg/hr Propofol (Diprivan) 100 mls @ 2.16 mls/hr IV .Q24H PRN; Protocol; 5 MCG/KG/MIN PRN Reason: TITRATE PER MD ORDER Last Admin: 09/07/16 21:59 Dose: 8.6 mls/hr Piperacillin Sod/Tazobactam (Sod 2.25 gm/ Sodium Chloride) 100 mls @ 200 mls/ hr IVPB Q8H [facility] Last Admin: 09/08/16 07:39 Dose: 200 mls/hr Cisatracurium Besylate 100 mg/ (Dextrose) 250 mls @ 10.79 mls/hr IV .[id number] PRN; Protocol; 1 MCG/KG/MIN PRN Reason: PROTOCOL Last Titration: 09/07/16 16:57 Dose: 0.5 mcg/kg/min Insulin Aspart (Novolog) 0 unit SC Q6 [facility] PRN Reason: Protocol Insulin Detemir (Levemir) 16 unit SC [facility] Last Admin: 09/07/16 22:00 Dose: 16 unit Isosorbide Mononitrate (Imdur) 60 mg PO DAILY [facility] Last Admin: 09/08/16 10:51 Dose: 60 mg Levothyroxine Sodium (Synthroid) 50 mcg PO DAILY@0630 [facility] Last Admin: 09/08/16 06:07 Dose: 50 mcg Methylprednisolone (Solu-Medrol) 40 mg IVP Q8 [facility] Last Admin: 09/08/16 06:00 Dose: 40 mg Pantoprazole Sodium (Protonix Susp) 40 mg PO DAILY [facility] Last Admin: 09/08/16 10:52 Dose: 40 mg Rosuvastatin Calcium (Crestor) 10 mg PO [facility] Last Admin: 09/07/16 22:00 Dose: 10 mg Physical Exam - Constitutional Appears: Toxic, Chronically Ill - Head Exam Head Exam: ATRAUMATIC, NORMAL INSPECTION, NORMOCEPHALIC - Eye Exam Eye Exam: PERRL. absent: Scleral icterus - ENT Exam ENT Exam: Mucous Membranes Dry - Neck Exam Neck exam: Negative for: Lymphadenopathy - Respiratory Exam Respiratory Exam: Decreased Breath Sounds, Rales, Rhonchi - Cardiovascular Exam Cardiovascular Exam: Tachycardia, REGULAR RHYTHM, +S1, +S2 - GI/Abdominal Exam GI & Abdominal Exam: Diminished Bowel Sounds, Distended, Soft. absent: Tenderness - Rectal Exam Rectal Exam: Deferred - Exam Exam: NORMAL INSPECTION - Extremities Exam Extremities exam: Positive for: pedal pulses present. Negative for: calf tenderness, pedal edema, tenderness - Back Exam Back exam: absent: CVA tenderness (L), CVA tenderness (R) - Neurological Exam Neurological exam: Altered - Psychiatric Exam Psychiatric exam: Depressed - Skin Skin Exam: Dry Results - Vital Signs Recent Vital Signs: Last Vital Signs Temp 97.2 F L 09/08/16 08:00 Pulse 87 09/08/16 11:00 Resp 4 L 09/08/16 11:00 BP 94/45 L 09/08/16 11:00 Pulse Ox 96 09/08/16 11:00 - Labs Result Diagrams: 09/09/16 06:06 09/09/16 06:06 Labs: Laboratory Results - last 24 hr 09/07/16 09/07/16 09/07/16 11:33 12:35 16:15 WBC RBC Hgb Hct MCV MCH MCHC RDW Plt Count MPV Neut % (Auto) Lymph % (Auto) [place] % (Auto) Eos % (Auto) Baso % (Auto) Neut # Lymph # [place] # Eos # Baso # Neutrophils % (Manual) Band Neutrophils % Lymphocytes % (Manual) Monocytes % (Manual) Platelet Estimate Large Platelets RBC Morphology Hypochromasia (manual) Microcytosis (manual) Tear Drop Cells APTT Puncture Site Rra Rra pCO2 43 30 L pO2 42 L* 47 L HCO3 24.8 26.5 ABG pH 7.38 7.52 H ABG Total CO2 26.7 25.4 ABG O2 Saturation 83.5 L 92.6 L ABG Base Excess 0.2 2.4 ABG Hemoglobin 9.5 L ABG Carboxyhemoglobin 1.7 H POC ABG HHb (Measured) 16.1 H ABG Methemoglobin 0.7 Tejinder Test Po Pos ABG Potassium 3.4 L A-a O2 Difference 617.0 629.0 Respiratory Index 14.7 13.4 Hgb O2 Saturation 81.4 L Sodium 140.0 Chloride 108.0 H Glucose 238 H Lactate 1.6 Mechanical Rate 24 FiO2 100.0 100.0 Tidal Volume 500 PEEP 8 Inspiratory BiPAP 16 Expiratory BiPAP 8 Crit Value Called To md Gonsalo Crit Value Called By Shay holt,machine cementer Crit Value Read Back Y Blood Gas Notified Time 1245 Potassium Carbon Dioxide Anion Gap BUN Creatinine Est GFR ( Amer) Est GFR (Non-Af Amer) POC Glucose (mg/dL) 396 H Random Glucose Calcium Phosphorus Magnesium Total Bilirubin AST ALT Alkaline Phosphatase Total Protein Albumin Globulin Albumin/Globulin Ratio Arterial Blood Potassium 3.4 L 09/07/16 09/07/16 09/08/16 19:05 21:04 00:37 WBC 9.8 RBC 2.75 L Hgb 8.7 L Hct 25.2 L MCV 91.9 MCH 31.8 H MCHC 34.7 RDW 13.6 Plt Count 227 MPV 9.0 Neut % (Auto) 90.8 H Lymph % (Auto) 6.3 L [place] % (Auto) 2.6 Eos % (Auto) 0.0 Baso % (Auto) 0.3 Neut # 8.9 H Lymph # 0.6 L [place] # 0.3 Eos # 0.0 Baso # 0.0 Neutrophils % (Manual) 90 H Band Neutrophils % 2 Lymphocytes % (Manual) 6 L Monocytes % (Manual) 2 Platelet Estimate Normal Large Platelets Present RBC Morphology Hypochromasia (manual) Slight Microcytosis (manual) Slight Tear Drop Cells Slight APTT 51 H D Puncture Site pCO2 pO2 HCO3 ABG pH ABG Total CO2 ABG O2 Saturation ABG Base Excess ABG Hemoglobin ABG Carboxyhemoglobin POC ABG HHb (Measured) ABG Methemoglobin Tejinder Test ABG Potassium A-a O2 Difference Respiratory Index Hgb O2 Saturation Sodium 135 Chloride 95 L Glucose Lactate Mechanical Rate FiO2 Tidal Volume PEEP Inspiratory BiPAP Expiratory BiPAP Crit Value Called To Crit Value Called By Crit Value Read Back Blood Gas Notified Time Potassium 3.6 Carbon Dioxide 21 L Anion Gap 23 H BUN 74 H Creatinine 4.0 H Est GFR ( Amer) 18 Est GFR (Non-Af Amer) 14 POC Glucose (mg/dL) 260 H 305 H Random Glucose 242 H Calcium 7.4 L Phosphorus 2.5 Magnesium 2.2 Total Bilirubin 0.7 AST 16 L ALT 19 L Alkaline Phosphatase 62 Total Protein 5.9 L Albumin 3.1 L Globulin 2.8 Albumin/Globulin Ratio 1.1 Arterial Blood Potassium 09/08/16 09/08/16 09/08/16 05:25 05:50 06:15 WBC 8.3 RBC 2.66 L Hgb 8.5 L Hct 24.4 L MCV 91.8 MCH 31.9 H MCHC 34.8 RDW 13.6 Plt Count 216 MPV 9.3 Neut % (Auto) 88.3 H Lymph % (Auto) 8.3 L [place] % (Auto) 3.0 Eos % (Auto) 0.0 Baso % (Auto) 0.4 Neut # 7.3 H Lymph # 0.7 L [place] # 0.2 Eos # 0.0 Baso # 0.0 Neutrophils % (Manual) 96 H Band Neutrophils % Lymphocytes % (Manual) 3 L Monocytes % (Manual) 1 Platelet Estimate Normal Large Platelets RBC Morphology Normal Hypochromasia (manual) Microcytosis (manual) Tear Drop Cells APTT 69 H D Puncture Site Rrad pCO2 20 L pO2 283 H HCO3 26.4 ABG pH 7.65 H* ABG Total CO2 22.6 ABG O2 Saturation 99.5 H ABG Base Excess 1.8 ABG Hemoglobin 8.0 L ABG Carboxyhemoglobin 1.0 POC ABG HHb (Measured) 0.5 ABG Methemoglobin 1.1 Tejinder Test Pos ABG Potassium A-a O2 Difference 405.0 Respiratory Index 1.4 Hgb O2 Saturation 97.4 Sodium 137 Chloride 100 Glucose Lactate Mechanical Rate 24 FiO2 100.0 Tidal Volume 550 PEEP 10 Inspiratory BiPAP Expiratory BiPAP Crit Value Called To Alexandrea farley rn Crit Value Called By Estela herron machine cementer Crit Value Read Back Y Blood Gas Notified Time 551 Potassium 3.4 L Carbon Dioxide 18 L Anion Gap 22 H BUN 75 H Creatinine 4.3 H Est GFR ( Amer) 16 Est GFR (Non-Af Amer) 13 POC Glucose (mg/dL) 314 H Random Glucose 285 H Calcium 7.5 L Phosphorus 3.0 Magnesium 2.3 Total Bilirubin 0.6 AST 18 ALT 23 Alkaline Phosphatase 65 Total Protein 5.7 L Albumin 2.9 L Globulin 2.9 Albumin/Globulin Ratio 1.0 Arterial Blood Potassium Assessment & Plan (1) Cardiorenal syndrome with renal failure Status: Acute (2) NSTEMI (non-ST elevation myocardial infarction) Status: Acute (3) Pulmonary edema Status: Acute (4) Respiratory failure with hypoxia Status: Acute (5) DVT prophylaxis Status: Acute (6) Renal failure Status: Acute (7) Syncope Status: Acute (8) Acute kidney injury superimposed on CKD Status: Chronic - Assessment and Plan (Free Text) Assessment: check cultures cont iv antibiotics
--- NOTE | 2016-09-08 11:29 | CON ---
DATE: 09/08/2016 HISTORY OF PRESENT ILLNESS: The patient is an 81-year-old man who has a history of known chronic kid jh disease, diabetes mellitus type 2, hypertension, meningioma, and he presents to the Emergency Dep artment with shortness of breath, found to be in pulmonary edema. He was diagnosed having an NSTEMI, that is a non-ST elevation myocardial infarction, and he has remained in the ICU. He has been intub ated for several days, now he is on BiPAP. PAST MEDICAL HISTORY: As mentioned. PAST SURGICAL HISTORY: Neck surgery for unknown etiology. MEDICATIONS: Presently includes IV sedation, Crestor, isosorbide, insulin, Renvela, Solu-Medrol and Levoxyl. Other diagnosis therefore is hypothyroidism. SOCIAL HISTORY: No history of alcohol abuse, illicit drug use or smoking. FAMILY HISTORY: Noncontributory. REVIEW OF SYSTEMS: Unobtainable as patient is intubated and sedated. PHYSICAL EXAMINATION: GENERAL: He is a well-developed man who is intubated, sedated. VITAL SIGNS: Blood pressure 103/49, pulse 86, he is on BiPAP. HEENT: Anicteric. NECK: No JVD. LUNGS: Paiz were clear anteriorly. HEART: Regular rhythm, no murmur. ABDOMEN: Soft, benign. No mass, no organomegaly. EXTREMITIES: No peripheral edema. LABORATORY DATA: The chemistries, initial creatinine was 2.8, now the creatinine is 4.3, BUN 75, pot assium 3.4, calcium 7.5, phosphorus 3, albumin is 2.9. His urine showed 2+ protein. Hemoglobin is 8 .5. Chest x-ray showed pulmonary edema. Urine output now is 1440 mL in the last 24 hours. Now he is not receiving any more diuretic treatmen t. IMPRESSION: Acute kidney injury, acute non-ST elevation myocardial infarction, congestive heart fail ure, diabetic nephropathy, known chronic kidney disease stage IV, and meningioma. PLAN: He is being weaned from the respirator. Apparently his respiratory status is improving. His r enal failure is advanced, likely has worsened with the acute events. If his renal function deteriora lida further, I discussed with the family and they would be agreeable to renal replacement therapy as needed. We will follow. At this point, will add Epogen and will stop Renvela as the phosphorus has dropped. Will follow up. Michele Cain MD cc: [id number] TT: 09/08/2016 11:28:22 Confirmation # [id number] Dictation # [id number] rn
--- NOTE | 2016-09-08 11:57 | CP.PCM.CON ---
History of Present Illness - History of Present Illness History of Present Illness: Palliative consult Reason: Goals of care Patient is a 81 yo male admitted from home with SOB. As per son jose, patient become very short of breath at home, o2Sat 56%. 911 was called and patient intubated for respiratory support. On admission patient was diagnosed with PE and Heparin drip initiated. Patient was found to be in acute renal failure, BUN 75, Physiotherapy Practice Manager 4.3. Possibility for HD was discussed with patient's son Jose by ICU team and he agreed to it. Doctor Ant called on case. The latest CXR from this morning showed no significant changes since admission; venous congestion vs infiltrate.Zosyn In , Solumedrol and neb. Tx on board. PMH: DM, HTN, Ex smker, quit about 50 years ago, CKD, meningioma Soc. Hx: , 2 years ago, lives with son Jose and his family , retired furniture worker fam. hx: unknown Review of Systems - Review of Systems Systems not reviewed;Unavailable: Intubated Past Patient History - Past Medical History & Family History Past Medical History?: Yes - Past Social History Smoking Status: Never Smoked - CARDIAC Hx Cardiac Disorders: No Hx Congestive Heart Failure: No Hx Hypercholesterolemia: No Hx Hypertension: Yes - PULMONARY Hx Respiratory Disorders: No Hx Chronic Obstructive Pulmonary Disease (COPD): No - NEUROLOGICAL Hx Neurological Disorder: No HX Cerebrovascular Accident: No - HEENT Hx HEENT Problems: Yes Hx Cataracts: Yes (with surgery done and IOL) - RENAL Hx Chronic Kidney Disease: No - ENDOCRINE/METABOLIC Hx Endocrine Disorders: No - HEMATOLOGICAL/ONCOLOGICAL Hx Blood Disorders: No Hx Human Immunodeficiency Virus (HIV): No - INTEGUMENTARY Hx Dermatological Problems: No - MUSCULOSKELETAL/RHEUMATOLOGICAL Hx Musculoskeletal Disorders: No Hx Arthritis: No Hx Rheumatoid Arthritis: No - GASTROINTESTINAL Hx Gastrointestinal Disorders: No - GENITOURINARY/GYNECOLOGICAL Hx Genitourinary Disorders: No - PSYCHIATRIC Hx Substance Use: No - SURGICAL HISTORY Hx Surgeries: Yes Other/Comment: Bilateral neck surgery carotid artery - ANESTHESIA Hx Anesthesia: Yes Hx Anesthesia Reactions: No Meds Allergies/Adverse Reactions: Allergies Allergy/AdvReac Type Severity Reaction Status Date / Time No Known Allergies Allergy Verified 09/04/16 06:02 - Medications Medications: Current Medications Albuterol/Ipratropium (Duoneb 3 Mg/0.5 Mg (3 Ml) Ud) 3 ml INH RQ6 [facility] Last Admin: 09/08/16 08:00 Dose: 3 ml Aspirin (Aspirin Chewable) 81 mg PO DAILY [facility] Last Admin: 09/08/16 10:52 Dose: 81 mg Epoetin Dominik (Procrit) 10,000 unit SC [facility] Heparin Sodium/Sodium Chloride (Heparin 35403 Units/250ml 1/2 Normal Saline) 250 mls @ 8.638 mls/hr IV .Q24H PRN; Protocol; 12 UNITS/KG/HR PRN Reason: PROTOCOL Last Titration: 09/07/16 14:58 Dose: 12 units/kg/hr Propofol (Diprivan) 100 mls @ 2.16 mls/hr IV .Q24H PRN; Protocol; 5 MCG/KG/MIN PRN Reason: TITRATE PER MD ORDER Last Titration: 09/08/16 08:00 Dose: 16.2 mcg/kg/min Piperacillin Sod/Tazobactam (Sod 2.25 gm/ Sodium Chloride) 100 mls @ 200 mls/ hr IVPB Q8H [facility] Last Admin: 09/08/16 07:39 Dose: 200 mls/hr Cisatracurium Besylate 100 mg/ (Dextrose) 250 mls @ 10.79 mls/hr IV .[id number] PRN; Protocol; 1 MCG/KG/MIN PRN Reason: PROTOCOL Last Titration: 09/07/16 16:57 Dose: 0.5 mcg/kg/min Insulin Aspart (Novolog) 0 unit SC Q6 [facility] PRN Reason: Protocol Insulin Detemir (Levemir) 16 unit SC [facility] Last Admin: 09/07/16 22:00 Dose: 16 unit Isosorbide Mononitrate (Imdur) 60 mg PO DAILY [facility] Last Admin: 09/08/16 10:51 Dose: 60 mg Levothyroxine Sodium (Synthroid) 50 mcg PO DAILY@0630 [facility] Last Admin: 09/08/16 06:07 Dose: 50 mcg Methylprednisolone (Solu-Medrol) 40 mg IVP Q8 [facility] Last Admin: 09/08/16 06:00 Dose: 40 mg Pantoprazole Sodium (Protonix Susp) 40 mg PO DAILY [facility] Last Admin: 09/08/16 10:52 Dose: 40 mg Rosuvastatin Calcium (Crestor) 10 mg PO HS [facility] Last Admin: 09/07/16 22:00 Dose: 10 mg Physical Exam - Constitutional Appears: Chronically Ill - Head Exam Head Exam: ATRAUMATIC - Eye Exam Eye Exam: Normal appearance Pupil Exam: Fixed - ENT Exam ENT Exam: Normal Exam Additional comments: ET tube - Neck Exam Neck exam: Positive for: Normal Inspection - Respiratory Exam Respiratory Exam: Decreased Breath Sounds Additional comments: On MV - Cardiovascular Exam Cardiovascular Exam: Tachycardia - GI/Abdominal Exam GI & Abdominal Exam: Normal Bowel Sounds - Rectal Exam Rectal Exam: Deferred - Exam Additional comments: Garza, urine clear - Extremities Exam Extremities exam: Positive for: normal inspection - Back Exam Back exam: NORMAL INSPECTION - Neurological Exam Neurological exam: Motor Sensory Deficit Additional comments: sedated - Psychiatric Exam Psychiatric exam: Flat Affect - Skin Skin Exam: Normal Color Results - Vital Signs Recent Vital Signs: Last Vital Signs Temp 97.2 F L 09/08/16 08:00 Pulse 87 09/08/16 11:00 Resp 4 L 09/08/16 11:00 BP 94/45 L 09/08/16 11:00 Pulse Ox 96 09/08/16 11:00 - Labs Result Diagrams: 09/08/16 06:15 09/08/16 06:15 Labs: Laboratory Results - last 24 hr 09/07/16 09/07/16 09/07/16 11:33 12:35 16:15 WBC RBC Hgb Hct MCV MCH MCHC RDW Plt Count MPV Neut % (Auto) Lymph % (Auto) [place] % (Auto) Eos % (Auto) Baso % (Auto) Neut # Lymph # [place] # Eos # Baso # Neutrophils % (Manual) Band Neutrophils % Lymphocytes % (Manual) Monocytes % (Manual) Platelet Estimate Large Platelets RBC Morphology Hypochromasia (manual) Microcytosis (manual) Tear Drop Cells APTT Puncture Site Rra Rra pCO2 43 30 L pO2 42 L* 47 L HCO3 24.8 26.5 ABG pH 7.38 7.52 H ABG Total CO2 26.7 25.4 ABG O2 Saturation 83.5 L 92.6 L ABG Base Excess 0.2 2.4 ABG Hemoglobin 9.5 L ABG Carboxyhemoglobin 1.7 H POC ABG HHb (Measured) 16.1 H ABG Methemoglobin 0.7 Tejinder Test Po Pos ABG Potassium 3.4 L A-a O2 Difference 617.0 629.0 Respiratory Index 14.7 13.4 Hgb O2 Saturation 81.4 L Sodium 140.0 Chloride 108.0 H Glucose 238 H Lactate 1.6 Mechanical Rate 24 FiO2 100.0 100.0 Tidal Volume 500 PEEP 8 Inspiratory BiPAP 16 Expiratory BiPAP 8 Crit Value Called To md Gonsalo Crit Value Called By Shay holt,flash ranging crewmember Crit Value Read Back Y Blood Gas Notified Time 1245 Potassium Carbon Dioxide Anion Gap BUN Creatinine Est GFR ( Amer) Est GFR (Non-Af Amer) POC Glucose (mg/dL) 396 H Random Glucose Calcium Phosphorus Magnesium Total Bilirubin AST ALT Alkaline Phosphatase Total Protein Albumin Globulin Albumin/Globulin Ratio Arterial Blood Potassium 3.4 L 09/07/16 09/07/16 09/08/16 19:05 21:04 00:37 WBC 9.8 RBC 2.75 L Hgb 8.7 L Hct 25.2 L MCV 91.9 MCH 31.8 H MCHC 34.7 RDW 13.6 Plt Count 227 MPV 9.0 Neut % (Auto) 90.8 H Lymph % (Auto) 6.3 L [place] % (Auto) 2.6 Eos % (Auto) 0.0 Baso % (Auto) 0.3 Neut # 8.9 H Lymph # 0.6 L [place] # 0.3 Eos # 0.0 Baso # 0.0 Neutrophils % (Manual) 90 H Band Neutrophils % 2 Lymphocytes % (Manual) 6 L Monocytes % (Manual) 2 Platelet Estimate Normal Large Platelets Present RBC Morphology Hypochromasia (manual) Slight Microcytosis (manual) Slight Tear Drop Cells Slight APTT 51 H D Puncture Site pCO2 pO2 HCO3 ABG pH ABG Total CO2 ABG O2 Saturation ABG Base Excess ABG Hemoglobin ABG Carboxyhemoglobin POC ABG HHb (Measured) ABG Methemoglobin Tejinder Test ABG Potassium A-a O2 Difference Respiratory Index Hgb O2 Saturation Sodium 135 Chloride 95 L Glucose Lactate Mechanical Rate FiO2 Tidal Volume PEEP Inspiratory BiPAP Expiratory BiPAP Crit Value Called To Crit Value Called By Crit Value Read Back Blood Gas Notified Time Potassium 3.6 Carbon Dioxide 21 L Anion Gap 23 H BUN 74 H Creatinine 4.0 H Est GFR ( Amer) 18 Est GFR (Non-Af Amer) 14 POC Glucose (mg/dL) 260 H 305 H Random Glucose 242 H Calcium 7.4 L Phosphorus 2.5 Magnesium 2.2 Total Bilirubin 0.7 AST 16 L ALT 19 L Alkaline Phosphatase 62 Total Protein 5.9 L Albumin 3.1 L Globulin 2.8 Albumin/Globulin Ratio 1.1 Arterial Blood Potassium 09/08/16 09/08/16 09/08/16 05:25 05:50 06:15 WBC 8.3 RBC 2.66 L Hgb 8.5 L Hct 24.4 L MCV 91.8 MCH 31.9 H MCHC 34.8 RDW 13.6 Plt Count 216 MPV 9.3 Neut % (Auto) 88.3 H Lymph % (Auto) 8.3 L [place] % (Auto) 3.0 Eos % (Auto) 0.0 Baso % (Auto) 0.4 Neut # 7.3 H Lymph # 0.7 L [place] # 0.2 Eos # 0.0 Baso # 0.0 Neutrophils % (Manual) 96 H Band Neutrophils % Lymphocytes % (Manual) 3 L Monocytes % (Manual) 1 Platelet Estimate Normal Large Platelets RBC Morphology Normal Hypochromasia (manual) Microcytosis (manual) Tear Drop Cells APTT 69 H D Puncture Site Rrad pCO2 20 L pO2 283 H HCO3 26.4 ABG pH 7.65 H* ABG Total CO2 22.6 ABG O2 Saturation 99.5 H ABG Base Excess 1.8 ABG Hemoglobin 8.0 L ABG Carboxyhemoglobin 1.0 POC ABG HHb (Measured) 0.5 ABG Methemoglobin 1.1 Tejinder Test Pos ABG Potassium A-a O2 Difference 405.0 Respiratory Index 1.4 Hgb O2 Saturation 97.4 Sodium 137 Chloride 100 Glucose Lactate Mechanical Rate 24 FiO2 100.0 Tidal Volume 550 PEEP 10 Inspiratory BiPAP Expiratory BiPAP Crit Value Called To Alexandrea farley rn Crit Value Called By Estela herron flash ranging crewmember Crit Value Read Back Y Blood Gas Notified Time 551 Potassium 3.4 L Carbon Dioxide 18 L Anion Gap 22 H BUN 75 H Creatinine 4.3 H Est GFR ( Amer) 16 Est GFR (Non-Af Amer) 13 POC Glucose (mg/dL) 314 H Random Glucose 285 H Calcium 7.5 L Phosphorus 3.0 Magnesium 2.3 Total Bilirubin 0.6 AST 18 ALT 23 Alkaline Phosphatase 65 Total Protein 5.7 L Albumin 2.9 L Globulin 2.9 Albumin/Globulin Ratio 1.0 Arterial Blood Potassium Assessment & Plan - Assessment and Plan (Free Text) Assessment: Code status Full Code. There is no advance directive on chart. PPS 0%. ROS unobtainable due to condition. I reviewed medical records, all diagnostic studies, examined patient in the bed , discussed his presentation with ICU residents and discussed goals of care with patient's son at bed side. Patient is sedated and intubated on MV, with motor sensory deficit. patient does not react to stimuli due to sedation. As per son, patient was initially very agitated trying to pull on tubes, and needed mittens for restrain. Skin is pale, Hb 8.5. Lungs with good air entry, O2Sat 95 % on MV. Abdomen soft with good bowel sounds. Garza at bed side, urine clear. BUN 75. Physiotherapy Practice Manager 4.3. Doctor Ant called on consult. Goals of care discussed with patient's son Jose at bed side. I reviewed patient's clinical presentation and elicited son's feelings about the whole situation. Jose stated understanding of severity of situation. I corrected his knowledge about the PE and the purpose of Heparin drip. Further, I explained our goals of weaning patient of the MV as tolerated by the patient. Mr. Garcia stated having very realistic expectations regarding recovery of his father. Mr. Garcia talks about his father as a very hard worker and suggests that current situation is not what patient would of want for him self. His hope is that patient will recover and resume normal life. However, the son also states expecting no miracles. If over time patient's condition does not improve and weaning of the vent is not durable, Mr. Garcia is open to discuss way to promote natural . He hopes that his father is not there yet. Mr. Garcia is very evangelical and believes that " The God has final say". Before deciding on Code status, Mr. Garcia needs to see how his father will be doing with the treatments applied. I supported Mr. Garcia's attitude and we agreed to fallow up and readjust goals of care based on current situation. Impression * Patient is under treatment for PE, intubated and sedated * The latest CXR is about the same as of admission; pulmonary congestion * Patient's wishes for the end of life care are not known * Patient's son states that this is not life his father would of want for him self * The son Luther hopes patient will recover and return to his normal life. If that becomes unrealistic expectation, Jose is open to talk about natural Suggestion * Provide all measures to support life with goal of weaning of the MV * If weaning is not an option patient's son Jose ( [phone]) is open for discussion about Natural Palliative care will continue to fallow up with the patient and his son, for further goals of care. Thank you for consulting palliative care.
--- NOTE | 2016-09-08 13:24 | CP.PCM.PN ---
Subjective - Date & Time of Evaluation Date of Evaluation: 09/08/16 Time of Evaluation: 12:00 - Subjective Subjective: Deteriorating clinically, renal function is deteriorating, hypoxemia, poor overall prognosis, no further fluid overload consider stopping Lasix and given some fluid, still with shortness of breath with respiratory infection, seen by ID and renal with follow, follow with interventional cardiology, high risk Objective - Vital Signs/Intake and Output Vital Signs (last 24 hours): Temp Pulse Resp BP Pulse Ox 98 F 87 4 L 94/45 L 96 09/08/16 12:00 09/08/16 11:00 09/08/16 11:00 09/08/16 11:00 09/08/16 11:00 Intake and Output: 09/08/16 09/08/16 06:59 18:59 Intake Total 358.4 326.8 Output Total 460 185 Balance -101.6 141.8 - Medications Medications: Current Medications Albuterol/Ipratropium (Duoneb 3 Mg/0.5 Mg (3 Ml) Ud) 3 ml INH RQ6 [facility] Last Admin: 09/08/16 08:00 Dose: 3 ml Aspirin (Aspirin Chewable) 81 mg PO DAILY [facility] Last Admin: 09/08/16 10:52 Dose: 81 mg Epoetin Dominik (Procrit) 10,000 unit SC TTS [facility] Heparin Sodium/Sodium Chloride (Heparin 52204 Units/250ml 1/2 Normal Saline) 250 mls @ 8.638 mls/hr IV .Q24H PRN; Protocol; 12 UNITS/KG/HR PRN Reason: PROTOCOL Last Titration: 09/07/16 14:58 Dose: 12 units/kg/hr Propofol (Diprivan) 100 mls @ 2.16 mls/hr IV .Q24H PRN; Protocol; 5 MCG/KG/MIN PRN Reason: TITRATE PER MD ORDER Last Admin: 09/08/16 12:17 Dose: 7 mls/hr Piperacillin Sod/Tazobactam (Sod 2.25 gm/ Sodium Chloride) 100 mls @ 200 mls/ hr IVPB Q8H [facility] Last Admin: 09/08/16 07:39 Dose: 200 mls/hr Cisatracurium Besylate 100 mg/ (Dextrose) 250 mls @ 10.79 mls/hr IV .F48K37H PRN; Protocol; 1 MCG/KG/MIN PRN Reason: PROTOCOL Last Titration: 09/07/16 16:57 Dose: 0.5 mcg/kg/min Insulin Aspart (Novolog) 0 unit SC Q6 [facility] PRN Reason: Protocol Last Admin: 09/08/16 12:14 Dose: 10 unit Insulin Detemir (Levemir) 16 unit SC [facility] Last Admin: 09/07/16 22:00 Dose: 16 unit Isosorbide Mononitrate (Imdur) 60 mg PO DAILY [facility] Last Admin: 09/08/16 10:51 Dose: 60 mg Levothyroxine Sodium (Synthroid) 50 mcg PO DAILY@0630 [facility] Last Admin: 09/08/16 06:07 Dose: 50 mcg Methylprednisolone (Solu-Medrol) 40 mg IVP Q8 [facility] Last Admin: 09/08/16 06:00 Dose: 40 mg Pantoprazole Sodium (Protonix Susp) 40 mg PO DAILY [facility] Last Admin: 09/08/16 10:52 Dose: 40 mg Rosuvastatin Calcium (Crestor) 10 mg PO [facility] Last Admin: 09/07/16 22:00 Dose: 10 mg - Labs Labs: 09/08/16 06:15 09/08/16 06:15 PT 12.2 SECONDS (9.7-12.2) 09/07/16 09:10 INR 1.1 09/07/16 09:10 APTT 69 SECONDS (21-34) H D 09/08/16 06:15 - Constitutional Appears: Non-toxic, In Acute Distress - Head Exam Head Exam: ATRAUMATIC - Eye Exam Eye Exam: EOMI - ENT Exam ENT Exam: Mucous Membranes Moist - Neck Exam Neck Exam: absent: Lymphadenopathy, Thyromegaly - Respiratory Exam Respiratory Exam: Clear to Ausculation Bilateral, Prolonged Expiratory Phase, Wheezes. absent: Rales - Cardiovascular Exam Cardiovascular Exam: REGULAR RHYTHM, Murmur - GI/Abdominal Exam GI & Abdominal Exam: Normal Bowel Sounds. absent: Organomegaly - Rectal Exam Rectal Exam: Deferred - Neurological Exam Neurological Exam: Alert - Psychiatric Exam Psychiatric exam: Normal Mood - Skin Skin Exam: Dry Assessment and Plan (1) NSTEMI (non-ST elevation myocardial infarction) Status: Acute (2) Pulmonary edema Status: Acute (3) Acute kidney injury superimposed on CKD Status: Chronic (4) Brain mass Status: Chronic (5) DM2 (diabetes mellitus, type 2) Status: Chronic (6) HTN (hypertension) Status: Chronic
[2016-09-08] MEDS: Heparin25000 units/250ml 1/2NS 250 ML IV PRN (16:36)
[2016-09-08 16:38] LABS: ABG ALLEN TEST POS; ABG MECHANICAL RATE 12; ARTERIAL BLOOD HGB O2 SAT 95.1 % (95.0-98.0); ATERIAL BLOOD GAS PEEP 5; CARBOXYHEMOGLOBIN 1.2 % (0.5-1.5); DRAW SITE RRA; HHB 2.7 % (0.0-5.0); METHEMOGLOBIN 1.1 % (0.0-3.0)
[2016-09-08] MEDS: Insulin Detemir 100 units/ml Vial (Levemir) SC SCH (21:09)
--- NOTE | 2016-09-08 22:23 | CP.PCM.CON ---
History of Present Illness - History of Present Illness History of Present Illness: Reason For Consultation: Consultation request made by ICU team Request for cardiac Cath due to positive Troponin Family wants every thing possible to be done to their loved one History of Present Illness 81 year old with DM, HTN, CKD, meningeoma, admitted with Shortness of breath subsequently intubated. Patient found to have elevated troponins and seen by cardiology with diagnosis of non-ST elevation [place]. Chest x-ray consistent with CHF. Review of Systems - Review of Systems All systems: Unable to obtain Physical Exam - Head Exam Head Exam: ATRAUMATIC, NORMOCEPHALIC - Eye Exam Eye Exam: Normal appearance - ENT Exam ENT Exam: Mucous Membranes Moist - Neck Exam Neck exam: Positive for: Normal Inspection - Respiratory Exam Respiratory Exam: Decreased Breath Sounds, Rales - Cardiovascular Exam Cardiovascular Exam: REGULAR RHYTHM - GI/Abdominal Exam GI & Abdominal Exam: Normal Bowel Sounds, Soft - Neurological Exam Neurological exam: Alert, Oriented x3 Past Patient History - Past Medical History & Family History Past Medical History?: Yes - Past Social History Smoking Status: Never Smoked - CARDIAC Hx Cardiac Disorders: No Hx Congestive Heart Failure: No Hx Hypercholesterolemia: No Hx Hypertension: Yes - PULMONARY Hx Respiratory Disorders: No Hx Chronic Obstructive Pulmonary Disease (COPD): No - NEUROLOGICAL Hx Neurological Disorder: No HX Cerebrovascular Accident: No - HEENT Hx HEENT Problems: Yes Hx Cataracts: Yes (with surgery done and IOL) - RENAL Hx Chronic Kidney Disease: No - ENDOCRINE/METABOLIC Hx Endocrine Disorders: No - HEMATOLOGICAL/ONCOLOGICAL Hx Blood Disorders: No Hx Human Immunodeficiency Virus (HIV): No - INTEGUMENTARY Hx Dermatological Problems: No - MUSCULOSKELETAL/RHEUMATOLOGICAL Hx Musculoskeletal Disorders: No Hx Arthritis: No Hx Rheumatoid Arthritis: No - GASTROINTESTINAL Hx Gastrointestinal Disorders: No - GENITOURINARY/GYNECOLOGICAL Hx Genitourinary Disorders: No - PSYCHIATRIC Hx Substance Use: No - SURGICAL HISTORY Hx Surgeries: Yes Other/Comment: Bilateral neck surgery carotid artery - ANESTHESIA Hx Anesthesia: Yes Hx Anesthesia Reactions: No Meds Allergies/Adverse Reactions: Allergies Allergy/AdvReac Type Severity Reaction Status Date / Time No Known Allergies Allergy Verified 09/04/16 06:02 - Medications Medications: Current Medications Albuterol/Ipratropium (Duoneb 3 Mg/0.5 Mg (3 Ml) Ud) 3 ml INH RQ6 CHRISTINA Last Admin: 09/08/16 19:31 Dose: 3 ml Aspirin (Aspirin Chewable) 81 mg PO DAILY [facility] Last Admin: 09/08/16 10:52 Dose: 81 mg Epoetin Dominik (Procrit) 10,000 unit SC [facility] Heparin Sodium/Sodium Chloride (Heparin 09453 Units/250ml 1/2 Normal Saline) 250 mls @ 8.638 mls/hr IV .Q24H PRN; Protocol; 12 UNITS/KG/HR PRN Reason: PROTOCOL Last Admin: 09/08/16 16:36 Dose: 8.638 mls/hr Propofol (Diprivan) 100 mls @ 2.16 mls/hr IV .Q24H PRN; Protocol; 5 MCG/KG/MIN PRN Reason: TITRATE PER MD ORDER Last Titration: 09/08/16 21:00 Dose: 20.83 mcg/kg/min Insulin Aspart (Novolog) 0 unit SC Q6 [facility] PRN Reason: Protocol Last Admin: 09/08/16 18:00 Dose: 10 unit Insulin Detemir (Levemir) 16 unit SC [facility] Last Admin: 09/08/16 21:09 Dose: 16 unit Isosorbide Mononitrate (Imdur) 60 mg PO DAILY [facility] Last Admin: 09/08/16 10:51 Dose: 60 mg Levothyroxine Sodium (Synthroid) 50 mcg PO DAILY@0630 [facility] Last Admin: 09/08/16 06:07 Dose: 50 mcg Methylprednisolone (Solu-Medrol) 40 mg IVP Q8 [facility] Last Admin: 09/08/16 21:06 Dose: 40 mg Pantoprazole Sodium (Protonix Susp) 40 mg PO DAILY [facility] Last Admin: 09/08/16 10:52 Dose: 40 mg Rosuvastatin Calcium (Crestor) 10 mg PO [facility] Last Admin: 09/08/16 21:06 Dose: 10 mg Results - Vital Signs Recent Vital Signs: Last Vital Signs Temp 98.8 F 09/08/16 20:00 Pulse 105 H 09/08/16 22:00 Resp 19 09/08/16 22:00 BP 111/59 L 09/08/16 22:00 Pulse Ox 95 09/08/16 21:00 - Labs Result Diagrams: 09/10/16 06:41 09/10/16 06:41 Labs: Laboratory Results - last 24 hr 04/03/1609/08/16 09/08/16 21:04 00:37 05:25 WBC RBC Hgb Hct MCV MCH MCHC RDW Plt Count MPV Neut % (Auto) Lymph % (Auto) [place] % (Auto) Eos % (Auto) Baso % (Auto) Neut # Lymph # [place] # Eos # Baso # Neutrophils % (Manual) 90 H Band Neutrophils % 2 Lymphocytes % (Manual) 6 L Monocytes % (Manual) 2 Platelet Estimate Normal Large Platelets Present RBC Morphology Hypochromasia (manual) Slight Microcytosis (manual) Slight Tear Drop Cells Slight APTT Puncture Site Rrad pCO2 20 L pO2 283 H HCO3 26.4 ABG pH 7.65 H* ABG Total CO2 22.6 ABG O2 Saturation 99.5 H ABG Base Excess 1.8 ABG Hemoglobin 8.0 L ABG Carboxyhemoglobin 1.0 POC ABG HHb (Measured) 0.5 ABG Methemoglobin 1.1 Tejinder Test Pos A-a O2 Difference 405.0 Respiratory Index 1.4 Hgb O2 Saturation 97.4 Mechanical Rate 24 FiO2 100.0 Tidal Volume 550 PEEP 10 Crit Value Called To Alexandrea farley rn Crit Value Called By Estela herron sales and marketing intern Crit Value Read Back Y Blood Gas Notified Time 551 Sodium Potassium Chloride Carbon Dioxide Anion Gap BUN Creatinine Est GFR ( Amer) Est GFR (Non-Af Amer) POC Glucose (mg/dL) 305 H Random Glucose Calcium Phosphorus Magnesium Total Bilirubin AST ALT Alkaline Phosphatase Total Protein Albumin Globulin Albumin/Globulin Ratio Procalcitonin 09/08/16 09/08/16 09/08/16 05:50 06:15 10:01 WBC 8.3 RBC 2.66 L Hgb 8.5 L Hct 24.4 L MCV 91.8 MCH 31.9 H MCHC 34.8 RDW 13.6 Plt Count 216 MPV 9.3 Neut % (Auto) 88.3 H Lymph % (Auto) 8.3 L [place] % (Auto) 3.0 Eos % (Auto) 0.0 Baso % (Auto) 0.4 Neut # 7.3 H Lymph # 0.7 L [place] # 0.2 Eos # 0.0 Baso # 0.0 Neutrophils % (Manual) 96 H Band Neutrophils % Lymphocytes % (Manual) 3 L Monocytes % (Manual) 1 Platelet Estimate Normal Large Platelets RBC Morphology Normal Hypochromasia (manual) Microcytosis (manual) Tear Drop Cells APTT 69 H D Puncture Site pCO2 pO2 HCO3 ABG pH ABG Total CO2 ABG O2 Saturation ABG Base Excess ABG Hemoglobin ABG Carboxyhemoglobin POC ABG HHb (Measured) ABG Methemoglobin Tejinder Test A-a O2 Difference Respiratory Index Hgb O2 Saturation Mechanical Rate FiO2 Tidal Volume PEEP Crit Value Called To Crit Value Called By Crit Value Read Back Blood Gas Notified Time Sodium 137 Potassium 3.4 L Chloride 100 Carbon Dioxide 18 L Anion Gap 22 H BUN 75 H Creatinine 4.3 H Est GFR ( Amer) 16 Est GFR (Non-Af Amer) 13 POC Glucose (mg/dL) 314 H Random Glucose 285 H Calcium 7.5 L Phosphorus 3.0 Magnesium 2.3 Total Bilirubin 0.6 AST 18 ALT 23 Alkaline Phosphatase 65 Total Protein 5.7 L Albumin 2.9 L Globulin 2.9 Albumin/Globulin Ratio 1.0 Procalcitonin 0.30 09/08/16 09/08/16 09/08/16 12:00 16:35 17:50 WBC RBC Hgb Hct MCV MCH MCHC RDW Plt Count MPV Neut % (Auto) Lymph % (Auto) [place] % (Auto) Eos % (Auto) Baso % (Auto) Neut # Lymph # [place] # Eos # Baso # Neutrophils % (Manual) Band Neutrophils % Lymphocytes % (Manual) Monocytes % (Manual) Platelet Estimate Large Platelets RBC Morphology Hypochromasia (manual) Microcytosis (manual) Tear Drop Cells APTT Puncture Site Rra pCO2 34 L pO2 74 L HCO3 24.3 ABG pH 7.44 ABG Total CO2 24.1 ABG O2 Saturation 97.2 ABG Base Excess -0.8 ABG Hemoglobin 8.4 L ABG Carboxyhemoglobin 1.2 POC ABG HHb (Measured) 2.7 ABG Methemoglobin 1.1 Tejinder Test Pos A-a O2 Difference 383.0 Respiratory Index 5.2 Hgb O2 Saturation 95.1 Mechanical Rate 12 FiO2 70.0 Tidal Volume 500 PEEP 5 Crit Value Called To Crit Value Called By Crit Value Read Back Blood Gas Notified Time Sodium Potassium Chloride Carbon Dioxide Anion Gap BUN Creatinine Est GFR ( Amer) Est GFR (Non-Af Amer) POC Glucose (mg/dL) 364 H 381 H Random Glucose Calcium Phosphorus Magnesium Total Bilirubin AST ALT Alkaline Phosphatase Total Protein Albumin Globulin Albumin/Globulin Ratio Procalcitonin Assessment & Plan - Assessment and Plan (Free Text) Assessment: (1) Respiratory failure with hypoxia Status: Acute Comment: On Mechanical Intubation (2) NSTEMI (non-ST elevation myocardial infarction) Status: Acute After discussing wth the ICU team family is requesting cardiac cath Will discuss with Primary Marriage And Family Social Worker Dr. Neely (3) Acute kidney injury superimposed on CKD Status: Chronic
[2016-09-09] MEDS: (Novolog) Insulin Aspart, Recombinant 100 u/ml 10 ml vial SC SCH ×4 (00:16→18:05)
[2016-09-09] MEDS: Albuterol-Ipratrop 3 mg / 0.5 (3 ml) UD INH SCH ×4 (01:02→19:21)
[2016-09-09 05:49] LABS: ABG ALLEN TEST POS; ABG MECHANICAL RATE 12; ARTERIAL BLOOD HGB O2 SAT 96.2 % (95.0-98.0); ATERIAL BLOOD GAS PEEP 5; CARBOXYHEMOGLOBIN 1.2 % (0.5-1.5); DRAW SITE RRAD; HHB 1.6 % (0.0-5.0)
[2016-09-09] MEDS: MethylPREDNISolone 40 mg Vial IVP SCH ×3 (05:49→22:00)
[2016-09-09] MEDS: Levothyroxine 50 MCG TAB PO SCH (06:12)
[2016-09-09 06:17] LABS: BASO % 0.2 % (0.0-2.0); LYMPH # 0.4 K/uL (1.0-4.3); LYMPH % 2.9 % (20.0-40.0); MEAN CELL VOLUME 94.2 fL (80.0-94.0); MEAN CORPUSCULAR HEMOGLOBIN 31.1 pg (27.0-31.0); MEAN PLATELET VOLUME 9.4 fL (7.2-11.7); MONO # 0.7 K/uL (0.0-0.8); NRBC % 0.1 % (0.0-2.0); PLATELET COUNT 243 K/uL (130-400); RED CELL DISTRIBUTION WIDTH 13.7 % (11.5-14.5); WHITE BLOOD COUNT 13.4 K/uL (4.8-10.8)
[2016-09-09 06:32] LABS: POTASSIUM 3.9 mmol/L (3.6-5.2)
[2016-09-09 06:34] LABS: ALB/GLOB RATIO 0.9 (1.0-2.1); BILIRUBIN,TOTAL 0.4 mg/dL (0.2-1.3); PHOSPHOROUS 4.7 mg/dL (2.5-4.5); TOTAL PROTEIN 5.8 g/dL (6.3-8.3)
[2016-09-09 06:35] LABS: CALCIUM 7.1 mg/dl (8.6-10.4); MAGNESIUM 2.6 mg/dL (1.6-2.3)
[2016-09-09 06:41] LABS: INR 1.1
--- NOTE | 2016-09-09 07:28 | CP.CCUPN ---
<Linda Guardado - Last Filed: 09/09/16 13:19> CCU Subjective - Physician Review Subjective (Free Text): Patient was seen and examined at bedside. Patient started to desaturate at 84-86 % on FiO2 70%. It was increased to FiO2 100%. Patient is currently intubated on PVRC: FiO2 100, PEEP 5, RR 12, Tvolume 500 saturating at 96%. Wade catheter placed for dialysis. Orders placed for dialysis by Dr. Cain. As per son, Jose, patient had a cardiac catherization in the past 6 months. Retrieving medical records from [facility]. Medical records retrieved from [facility]: Patient had Carotid dopplers on 05/18/2016 which should Right ICA stenosis of 70-79%. MRA of carotids showed: 50-69% narrowing takeoff of right ICA with a less than 50% narrowing more distally. ECHO done on 08/16/16 showed LVEF: 60-65%. Grade 1 diastolic dysfunction present. Left atrium borderline dilated. Mild AR, TR, moderate AR, MR. Right ventricular systolic pressure is estimated at 46mmHG. CCU Objective - Vital Signs / Intake & Output Vital Signs (Last 4 hours): Vital Signs Temp Pulse Resp BP Pulse Ox 09/09/16 06:00 94 H 20 110/58 L 96 09/09/16 05:00 98 H 20 102/69 97 09/09/16 04:00 99.4 F 102 H 20 111/63 96 Intake and Output (Last 8hrs): Intake & Output 09/08/16 09/09/16 09/09/16 22:59 06:59 14:59 Intake Total 544.2 573.8 Output Total 375 450 Balance 169.2 123.8 Weight 165 lb Intake: Intake, IV Amount 134.2 173.8 Right Proximal Port PICC 60 105 Right Distal Port PICC 5.4 Right PICC 68.8 68.8 Tube Feeding 350 400 Other 60 Output: Urine 375 450 Urethral (Garza) 375 450 - Physical Exam Head: Positive for: Atraumatic, Normocephalic Pupils: Positive for: PERRL Extroacular Muscles: Positive for: EOMI Conjunctiva: Positive for: Normal Mouth: Positive for: Moist Mucous Membranes, Other (ET in place) Neck: Positive for: Normal Range of Motion Respiratory/Chest: Positive for: Decreased Breath Sounds, Rales Cardiovascular: Positive for: Regular Rate and Rhythm, Normal S1, S2 Abdomen: Positive for: Distention, Normal Bowel Sounds. Negative for: Tenderness Upper Extremity: Positive for: Normal Inspection. Negative for: Cyanosis, Edema Lower Extremity: Positive for: Normal Inspection. Negative for: Edema Neurological: Positive for: GCS=15 Skin: Positive for: Warm, Dry Psychiatric: Positive for: Alert, Oriented x 3, Normal Insight - Medications Active Medications: Active Medications Generic Name Dose Route Start Last Admin Trade Name Freq PRN Reason Stop Dose Admin Albuterol/Ipratropium 3 ml 09/04/16 20:00 09/09/16 01:02 Duoneb 3 Mg/0.5 Mg (3 Ml) Ud INH 3 ml RQ6 CHRISTINA Administration Aspirin 81 mg 09/05/16 10:00 09/08/16 10:52 Aspirin Chewable PO 81 mg DAILY CHRISTINA Administration Epoetin Dominik 10,000 unit 09/10/16 10:00 Procrit SC TTS [facility] Heparin Sodium/Sodium Chloride 250 mls @ 8.638 mls/hr 09/07/16 09:12 09/08/16 16:36 Heparin 50568 Units/250ml 1/2 Normal Saline IV 8.638 mls/hr .Q24H PRN Administration PROTOCOL Protocol 12 UNITS/KG/HR Propofol 100 mls @ 2.16 mls/hr 09/07/16 14:20 09/09/16 06:00 Diprivan IV 30.09 mcg/kg/min .Q24H PRN Titration TITRATE PER MD ORDER Protocol 5 MCG/KG/MIN Insulin Aspart 0 unit 09/08/16 18:00 09/09/16 06:26 Novolog SC 10 unit Q6 CHRISTINA Administration Protocol Insulin Detemir 16 unit 09/04/16 22:00 09/08/16 21:09 Levemir SC 16 unit HS CHRISTINA Administration Isosorbide Mononitrate 60 mg 09/05/16 10:00 09/08/16 10:51 Imdur PO 60 mg DAILY CHRISTINA Administration Levothyroxine Sodium 50 mcg 09/05/16 06:30 09/09/16 06:12 Synthroid PO 50 mcg DAILY@0630 CHRISTINA Administration Methylprednisolone 40 mg 09/07/16 22:00 09/09/16 05:49 Solu-Medrol IVP 40 mg Q8 CHRISTINA Administration Pantoprazole Sodium 40 mg 09/08/16 10:15 09/08/16 10:52 Protonix Susp PO 40 mg DAILY CHRISTINA Administration Rosuvastatin Calcium 10 mg 09/04/16 21:15 09/08/16 21:06 Crestor PO 10 mg HS CHRISTINA Administration - Patient Studies Lab Studies: Lab Studies 09/09/16 09/09/16 09/09/16 Range/Units 06:21 06:06 05:26 WBC 13.4 H D (4.8-10.8) K/uL RBC 2.86 L (4.40-5.90) Mil/uL Hgb 8.9 L (12.0-18.0) g/dL Hct 27.0 L (35.0-51.0) % MCV 94.2 H D (80.0-94.0) fL MCH 31.1 H (27.0-31.0) pg MCHC 33.0 (33.0-37.0) g/dL RDW 13.7 (11.5-14.5) % Plt Count 243 (130-400) K/uL MPV 9.4 (7.2-11.7) fL Neut % (Auto) 91.9 H (50.0-75.0) % Lymph % (Auto) 2.9 L (20.0-40.0) % [place] % (Auto) 5.0 (0.0-10.0) % Eos % (Auto) 0.0 (0.0-4.0) % Baso % (Auto) 0.2 (0.0-2.0) % Neut # 12.3 H (1.8-7.0) K/uL Lymph # 0.4 L (1.0-4.3) K/uL [place] # 0.7 (0.0-0.8) K/uL Eos # 0.0 (0.0-0.7) K/uL Baso # 0.0 (0.0-0.2) K/uL Neutrophils % (Manual) (50-75) % Lymphocytes % (Manual) (20-40) % Monocytes % (Manual) (0-10) % Platelet Estimate (NORMAL) RBC Morphology PT 12.5 H (9.7-12.2) SECONDS INR 1.1 APTT 68 H (21-34) SECONDS Puncture Site Rrad pCO2 35 (35-45) mm/Hg pO2 80 (80-100) mm/Hg HCO3 23.8 (21-28) mmol/L ABG pH 7.42 (7.35-7.45) ABG Total CO2 23.8 (22-28) mmol/L ABG O2 Saturation 98.4 H (95-98) % ABG Base Excess -1.5 (-2.0-3.0) mmol/L ABG Hemoglobin 8.8 L (11.7-17.4) g/dL ABG Carboxyhemoglobin 1.2 (0.5-1.5) % POC ABG HHb (Measured) 1.6 (0.0-5.0) % ABG Methemoglobin 1.0 (0.0-3.0) % Tejinder Test Pos A-a O2 Difference 589.0 mm/Hg Respiratory Index 7.4 Hgb O2 Saturation 96.2 (95.0-98.0) % Mechanical Rate 12 FiO2 100.0 % Tidal Volume 500 PEEP 5 Sodium 140 (132-148) mmol/L Potassium 3.9 (3.6-5.2) mmol/L Chloride 102 (98-107) mmol/L Carbon Dioxide 19 L (22-30) mmol/L Anion Gap 23 H (10-20) BUN 94 H (9-20) mg/dL Creatinine 4.2 H (0.8-1.5) MG/DL Est GFR ( Amer) 17 Est GFR (Non-Af Amer) 14 POC Glucose (mg/dL) 375 H (65-110) mg/dL Random Glucose 354 H (75-110) mg/dL Calcium 7.1 L (8.6-10.4) mg/dl Phosphorus 4.7 H (2.5-4.5) mg/dL Magnesium 2.6 H (1.6-2.3) mg/dL Total Bilirubin 0.4 (0.2-1.3) mg/dL AST 37 (17-59) U/L ALT 44 (21-72) U/L Alkaline Phosphatase 84 (38-126) U/L Total Protein 5.8 L (6.3-8.3) g/dL Albumin 2.8 L (3.5-5.0) g/dL Globulin 3.0 (2.2-3.9) gm/dL Albumin/Globulin Ratio 0.9 L (1.0-2.1) Procalcitonin (0.19-0.49) NG/ML 09/09/16 09/08/16 09/08/16 Range/Units 00:02 17:50 16:35 WBC (4.8-10.8) K/uL RBC (4.40-5.90) Mil/uL Hgb (12.0-18.0) g/dL Hct (35.0-51.0) % MCV (80.0-94.0) fL MCH (27.0-31.0) pg MCHC (33.0-37.0) g/dL RDW (11.5-14.5) % Plt Count (130-400) K/uL MPV (7.2-11.7) fL Neut % (Auto) (50.0-75.0) % Lymph % (Auto) (20.0-40.0) % [place] % (Auto) (0.0-10.0) % Eos % (Auto) (0.0-4.0) % Baso % (Auto) (0.0-2.0) % Neut # (1.8-7.0) K/uL Lymph # (1.0-4.3) K/uL [place] # (0.0-0.8) K/uL Eos # (0.0-0.7) K/uL Baso # (0.0-0.2) K/uL Neutrophils % (Manual) (50-75) % Lymphocytes % (Manual) (20-40) % Monocytes % (Manual) (0-10) % Platelet Estimate (NORMAL) RBC Morphology PT (9.7-12.2) SECONDS INR APTT (21-34) SECONDS Puncture Site Rra pCO2 34 L (35-45) mm/Hg pO2 74 L (80-100) mm/Hg HCO3 24.3 (21-28) mmol/L ABG pH 7.44 (7.35-7.45) ABG Total CO2 24.1 (22-28) mmol/L ABG O2 Saturation 97.2 (95-98) % ABG Base Excess -0.8 (-2.0-3.0) mmol/L ABG Hemoglobin 8.4 L (11.7-17.4) g/dL ABG Carboxyhemoglobin 1.2 (0.5-1.5) % POC ABG HHb (Measured) 2.7 (0.0-5.0) % ABG Methemoglobin 1.1 (0.0-3.0) % Tejinder Test Pos A-a O2 Difference 383.0 mm/Hg Respiratory Index 5.2 Hgb O2 Saturation 95.1 (95.0-98.0) % Mechanical Rate 12 FiO2 70.0 % Tidal Volume 500 PEEP 5 Sodium (132-148) mmol/L Potassium (3.6-5.2) mmol/L Chloride (98-107) mmol/L Carbon Dioxide (22-30) mmol/L Anion Gap (10-20) BUN (9-20) mg/dL Creatinine (0.8-1.5) MG/DL Est GFR ( Amer) Est GFR (Non-Af Amer) POC Glucose (mg/dL) 478 H* 381 H (65-110) mg/dL Random Glucose (75-110) mg/dL Calcium (8.6-10.4) mg/dl Phosphorus (2.5-4.5) mg/dL Magnesium (1.6-2.3) mg/dL Total Bilirubin (0.2-1.3) mg/dL AST (17-59) U/L ALT (21-72) U/L Alkaline Phosphatase (38-126) U/L Total Protein (6.3-8.3) g/dL Albumin (3.5-5.0) g/dL Globulin (2.2-3.9) gm/dL Albumin/Globulin Ratio (1.0-2.1) Procalcitonin (0.19-0.49) NG/ML 09/08/16 09/08/16 09/08/16 Range/Units 12:00 10:01 06:15 WBC (4.8-10.8) K/uL RBC (4.40-5.90) Mil/uL Hgb (12.0-18.0) g/dL Hct (35.0-51.0) % MCV (80.0-94.0) fL MCH (27.0-31.0) pg MCHC (33.0-37.0) g/dL RDW (11.5-14.5) % Plt Count (130-400) K/uL MPV (7.2-11.7) fL Neut % (Auto) (50.0-75.0) % Lymph % (Auto) (20.0-40.0) % [place] % (Auto) (0.0-10.0) % Eos % (Auto) (0.0-4.0) % Baso % (Auto) (0.0-2.0) % Neut # (1.8-7.0) K/uL Lymph # (1.0-4.3) K/uL [place] # (0.0-0.8) K/uL Eos # (0.0-0.7) K/uL Baso # (0.0-0.2) K/uL Neutrophils % (Manual) 96 H (50-75) % Lymphocytes % (Manual) 3 L (20-40) % Monocytes % (Manual) 1 (0-10) % Platelet Estimate Normal (NORMAL) RBC Morphology Normal PT (9.7-12.2) SECONDS INR APTT (21-34) SECONDS Puncture Site pCO2 (35-45) mm/Hg pO2 (80-100) mm/Hg HCO3 (21-28) mmol/L ABG pH (7.35-7.45) ABG Total CO2 (22-28) mmol/L ABG O2 Saturation (95-98) % ABG Base Excess (-2.0-3.0) mmol/L ABG Hemoglobin (11.7-17.4) g/dL ABG Carboxyhemoglobin (0.5-1.5) % POC ABG HHb (Measured) (0.0-5.0) % ABG Methemoglobin (0.0-3.0) % Tejinder Test A-a O2 Difference mm/Hg Respiratory Index Hgb O2 Saturation (95.0-98.0) % Mechanical Rate FiO2 % Tidal Volume PEEP Sodium (132-148) mmol/L Potassium (3.6-5.2) mmol/L Chloride (98-107) mmol/L Carbon Dioxide (22-30) mmol/L Anion Gap (10-20) BUN (9-20) mg/dL Creatinine (0.8-1.5) MG/DL Est GFR ( Amer) Est GFR (Non-Af Amer) POC Glucose (mg/dL) 364 H (65-110) mg/dL Random Glucose (75-110) mg/dL Calcium (8.6-10.4) mg/dl Phosphorus (2.5-4.5) mg/dL Magnesium (1.6-2.3) mg/dL Total Bilirubin (0.2-1.3) mg/dL AST (17-59) U/L ALT (21-72) U/L Alkaline Phosphatase (38-126) U/L Total Protein (6.3-8.3) g/dL Albumin (3.5-5.0) g/dL Globulin (2.2-3.9) gm/dL Albumin/Globulin Ratio (1.0-2.1) Procalcitonin 0.30 (0.19-0.49) NG/ML Laboratory Results - last 24 hr 09/08/16 09/08/16 09/08/16 06:15 10:01 12:00 WBC RBC Hgb Hct MCV MCH MCHC RDW Plt Count MPV Neut % (Auto) Lymph % (Auto) [place] % (Auto) Eos % (Auto) Baso % (Auto) Neut # Lymph # [place] # Eos # Baso # Neutrophils % (Manual) 96 H Lymphocytes % (Manual) 3 L Monocytes % (Manual) 1 Platelet Estimate Normal RBC Morphology Normal PT INR APTT Puncture Site pCO2 pO2 HCO3 ABG pH ABG Total CO2 ABG O2 Saturation ABG Base Excess ABG Hemoglobin ABG Carboxyhemoglobin POC ABG HHb (Measured) ABG Methemoglobin Tejinder Test A-a O2 Difference Respiratory Index Hgb O2 Saturation Mechanical Rate FiO2 Tidal Volume PEEP Sodium Potassium Chloride Carbon Dioxide Anion Gap BUN Creatinine Est GFR ( Amer) Est GFR (Non-Af Amer) POC Glucose (mg/dL) 364 H Random Glucose Calcium Phosphorus Magnesium Total Bilirubin AST ALT Alkaline Phosphatase Total Protein Albumin Globulin Albumin/Globulin Ratio Procalcitonin 0.30 09/08/16 09/08/16 09/09/16 16:35 17:50 00:02 WBC RBC Hgb Hct MCV MCH MCHC RDW Plt Count MPV Neut % (Auto) Lymph % (Auto) [place] % (Auto) Eos % (Auto) Baso % (Auto) Neut # Lymph # [place] # Eos # Baso # Neutrophils % (Manual) Lymphocytes % (Manual) Monocytes % (Manual) Platelet Estimate RBC Morphology PT INR APTT Puncture Site Rra pCO2 34 L pO2 74 L HCO3 24.3 ABG pH 7.44 ABG Total CO2 24.1 ABG O2 Saturation 97.2 ABG Base Excess -0.8 ABG Hemoglobin 8.4 L ABG Carboxyhemoglobin 1.2 POC ABG HHb (Measured) 2.7 ABG Methemoglobin 1.1 Tejinder Test Pos A-a O2 Difference 383.0 Respiratory Index 5.2 Hgb O2 Saturation 95.1 Mechanical Rate 12 FiO2 70.0 Tidal Volume 500 PEEP 5 Sodium Potassium Chloride Carbon Dioxide Anion Gap BUN Creatinine Est GFR ( Amer) Est GFR (Non-Af Amer) POC Glucose (mg/dL) 381 H 478 H* Random Glucose Calcium Phosphorus Magnesium Total Bilirubin AST ALT Alkaline Phosphatase Total Protein Albumin Globulin Albumin/Globulin Ratio Procalcitonin 09/09/16 09/09/16 09/09/16 05:26 06:06 06:21 WBC 13.4 H D RBC 2.86 L Hgb 8.9 L Hct 27.0 L MCV 94.2 H D MCH 31.1 H MCHC 33.0 RDW 13.7 Plt Count 243 MPV 9.4 Neut % (Auto) 91.9 H Lymph % (Auto) 2.9 L [place] % (Auto) 5.0 Eos % (Auto) 0.0 Baso % (Auto) 0.2 Neut # 12.3 H Lymph # 0.4 L [place] # 0.7 Eos # 0.0 Baso # 0.0 Neutrophils % (Manual) Lymphocytes % (Manual) Monocytes % (Manual) Platelet Estimate RBC Morphology PT 12.5 H INR 1.1 APTT 68 H Puncture Site Rrad pCO2 35 pO2 80 HCO3 23.8 ABG pH 7.42 ABG Total CO2 23.8 ABG O2 Saturation 98.4 H ABG Base Excess -1.5 ABG Hemoglobin 8.8 L ABG Carboxyhemoglobin 1.2 POC ABG HHb (Measured) 1.6 ABG Methemoglobin 1.0 Tejinder Test Pos A-a O2 Difference 589.0 Respiratory Index 7.4 Hgb O2 Saturation 96.2 Mechanical Rate 12 FiO2 100.0 Tidal Volume 500 PEEP 5 Sodium 140 Potassium 3.9 Chloride 102 Carbon Dioxide 19 L Anion Gap 23 H BUN 94 H Creatinine 4.2 H Est GFR ( Amer) 17 Est GFR (Non-Af Amer) 14 POC Glucose (mg/dL) 375 H Random Glucose 354 H Calcium 7.1 L Phosphorus 4.7 H Magnesium 2.6 H Total Bilirubin 0.4 AST 37 ALT 44 Alkaline Phosphatase 84 Total Protein 5.8 L Albumin 2.8 L Globulin 3.0 Albumin/Globulin Ratio 0.9 L Procalcitonin Fingerstick Blood Sugar Results: 375 Critical Care Progress Note - Vent Settings MODE:: PRVC TIDAL VOLUME:: 500 RESP RATE:: 12 FIO2:: 100 PEEP:: 5 - Nutrition Nutrition: Nutrition Category Date Time Status Renal Diet [DIET] Diets 09/04/16 Lunch Active Assessment/Plan - Assessment and Plan (Free Text) Assessment: 81 year old with DM, HTN, CKD, meningeoma, admitted with shortness of breath requiring BiPAP. CXR reveals pulmonary edema. Elevated troponins, diagnosed with NSTEMI. Plan: Neuro: Intubated Pulm: Patient intubated due to ARDS ABG: improved, vent settings changed to FiO2 of 100 instead of 70% due to desaturation of 84-86%. Current vent settings: PRVC: FiO2 100%, Tvolume 500, resp rate 12, peep 5 Duonebs Q6H, Imdur, Solumedrol 40 Q8H Patient had PICC line placed for heparin drip Zosyn was DC due to low procalcitonin / CXR: Worsening now diffuse confluent bilateral airspace opacities throughout both lungs with associated moderate bilateral pleural effusions. CV: Plan for Cardiac Catherization with Dr. Garcia- kristofer to be discussed Elevated troponins: NSTEMI; PICC line placed, heparin drip INR: 1.1 ECHO: Left ventricle mildly dilated. Anteroapical and inferoapical hypokinesis. Grade 3 restrictive diastolic dysfunction. Moderate TR, Pulm HTN, MR and mild AR. No pericardial effusion. HLD: Crestor 10mg PO QHS CAD: ASA Hypokalemia - resolved Renal: LUIS EDUARDO on CKD Procrit 10,000 units TTS Wade catheter placed Dr. Cain consulted - order placed for dialysis Endo: DM: increased Levemir 20 units QHS, ISS -high Elevated blood sugars secondary to solumedrol Hypothyroidism: 50 mcg PO daily ID: Afebrile, no white count Lactate level 1.6 Blood cultures negative x [address] Price consulted - help appreciated Procalcitonin - low, zosyn was DC Prophylaxis: Protonix 40mg PO daily Heparin Drip Medical records retrieved from [facility]: Patient had Carotid dopplers on 05/18/2016 which should Right ICA stenosis of 70-79%. MRA of carotids showed: 50-69% narrowing takeoff of right ICA with a less than 50% narrowing more distally. ECHO done on 08/16/16 showed LVEF: 60-65%. Grade 1 diastolic dysfunction present. Left atrium borderline dilated. Mild AR, TR, moderate AR, MR. Right ventricular systolic pressure is estimated at 46mmHG. Jose (SON) [phone] DW Geo Duncan DO, PGY-1 <Elkin Castro S - Last Filed: 09/09/16 17:03> CCU Objective - Vital Signs / Intake & Output Vital Signs (Last 4 hours): Vital Signs Temp Pulse Pulse Resp BP BP Pulse Ox 09/09/16 16:45 121/64 09/09/16 16:15 124/67 09/09/16 16:00 98.5 F 99 H 19 119/62 97 09/09/16 15:45 121/62 09/09/16 15:35 100 H 20 125/63 09/09/16 15:30 122/62 09/09/16 15:15 108/58 L 09/09/16 15:00 100 H 20 118/61 118/61 97 09/09/16 14:45 98.5 F 100 H 20 122/62 98 09/09/16 14:40 98.5 F 100 H 20 125/63 09/09/16 14:00 100 H 20 130/67 97 09/09/16 13:00 97 H 18 129/66 96 Intake and Output (Last 8hrs): Intake & Output 09/09/16 09/09/16 09/09/16 06:59 14:59 22:59 Intake Total 573.8 543.6 145.2 Output Total 450 355 120 Balance 123.8 188.6 25.2 Weight 165 lb 165 lb Intake: Intake, IV Amount 173.8 143.6 45.2 Right Proximal Port PICC 105 92 28 Right PICC 68.8 51.6 17.2 Tube Feeding 400 300 100 Other 100 Output: Urine 450 355 120 Urethral (Garza) 450 355 120 - Medications Active Medications: Active Medications Generic Name Dose Route Start Last Admin Trade Name Freq PRN Reason Stop Dose Admin Albuterol/Ipratropium 3 ml 09/04/16 20:00 09/09/16 13:21 Duoneb 3 Mg/0.5 Mg (3 Ml) Ud INH 3 ml RQ6 CHRISTINA Administration Aspirin 81 mg 09/05/16 10:00 09/09/16 09:30 Aspirin Chewable PO 81 mg DAILY CHRISTINA Administration Epoetin Dominik 10,000 unit 09/10/16 10:00 Procrit IV TTS CHRISTINA Heparin Sodium/Sodium Chloride 250 mls @ 8.638 mls/hr 09/07/16 09:12 09/08/16 16:36 Heparin 66836 Units/250ml 1/2 Normal Saline IV 8.638 mls/hr .Q24H PRN Administration PROTOCOL Protocol 12 UNITS/KG/HR Propofol 100 mls @ 2.16 mls/hr 09/07/16 14:20 09/09/16 14:26 Diprivan IV 32.41 mcg/kg/min .Q24H PRN Titration TITRATE PER MD ORDER Protocol 5 MCG/KG/MIN Insulin Aspart 0 unit 09/08/16 18:00 09/09/16 12:08 Novolog SC 12 unit Q6 CHRISTINA Administration Protocol Insulin Detemir 20 unit 09/09/16 22:00 Levemir SC HS [facility] Isosorbide Mononitrate 60 mg 09/05/16 10:00 09/09/16 14:36 Imdur PO Not Given DAILY [facility] Levothyroxine Sodium 50 mcg 09/05/16 06:30 09/09/16 06:12 Synthroid PO 50 mcg DAILY@0630 CHRISTINA Administration Methylprednisolone 40 mg 09/07/16 22:00 09/09/16 13:24 Solu-Medrol IVP 40 mg Q8 CHRISTINA Administration Pantoprazole Sodium 40 mg 09/08/16 10:15 09/09/16 09:31 Protonix Susp PO 40 mg DAILY CHRISTINA Administration Rosuvastatin Calcium 10 mg 09/04/16 21:15 09/08/16 21:06 Crestor PO 10 mg HS CHRISTINA Administration - Patient Studies Lab Studies: Microbiology Studies 09/07/16 Unknown MRSA Culture (Admit) - Final Naris MRSA NOT DETECTED Lab Studies 09/09/16 09/09/16 09/09/16 Range/Units 14:26 11:34 06:21 WBC (4.8-10.8) K/uL RBC (4.40-5.90) Mil/uL Hgb (12.0-18.0) g/dL Hct (35.0-51.0) % MCV (80.0-94.0) fL MCH (27.0-31.0) pg MCHC (33.0-37.0) g/dL RDW (11.5-14.5) % Plt Count (130-400) K/uL MPV (7.2-11.7) fL Neut % (Auto) (50.0-75.0) % Lymph % (Auto) (20.0-40.0) % [place] % (Auto) (0.0-10.0) % Eos % (Auto) (0.0-4.0) % Baso % (Auto) (0.0-2.0) % Neut # (1.8-7.0) K/uL Lymph # (1.0-4.3) K/uL [place] # (0.0-0.8) K/uL Eos # (0.0-0.7) K/uL Baso # (0.0-0.2) K/uL Neutrophils % (Manual) (50-75) % Band Neutrophils % (0-2) % Lymphocytes % (Manual) (20-40) % Monocytes % (Manual) (0-10) % Platelet Estimate (NORMAL) Sujey Cells PT (9.7-12.2) SECONDS INR APTT (21-34) SECONDS Puncture Site pCO2 (35-45) mm/Hg pO2 (80-100) mm/Hg HCO3 (21-28) mmol/L ABG pH (7.35-7.45) ABG Total CO2 (22-28) mmol/L ABG O2 Saturation (95-98) % ABG Base Excess (-2.0-3.0) mmol/L ABG Hemoglobin (11.7-17.4) g/dL ABG Carboxyhemoglobin (0.5-1.5) % POC ABG HHb (Measured) (0.0-5.0) % ABG Methemoglobin (0.0-3.0) % Tejinder Test A-a O2 Difference mm/Hg Respiratory Index Hgb O2 Saturation (95.0-98.0) % Mechanical Rate FiO2 % Tidal Volume PEEP Sodium (132-148) mmol/L Potassium (3.6-5.2) mmol/L Chloride (98-107) mmol/L Carbon Dioxide (22-30) mmol/L Anion Gap (10-20) BUN (9-20) mg/dL Creatinine (0.8-1.5) MG/DL Est GFR ( Amer) Est GFR (Non-Af Amer) POC Glucose (mg/dL) 488 H* 375 H (65-110) mg/dL Random Glucose (75-110) mg/dL Calcium (8.6-10.4) mg/dl Phosphorus (2.5-4.5) mg/dL Magnesium (1.6-2.3) mg/dL Total Bilirubin (0.2-1.3) mg/dL AST (17-59) U/L ALT (21-72) U/L Alkaline Phosphatase (38-126) U/L Total Protein (6.3-8.3) g/dL Albumin (3.5-5.0) g/dL Globulin (2.2-3.9) gm/dL Albumin/Globulin Ratio (1.0-2.1) Hep Bs Antigen Negative (NEGATIVE) Hep Bs Antibody Negative (NEGATIVE) Hep B Core IgM Ab Negative (NEGATIVE) Hepatitis C Antibody Negative (NEGATIVE) 09/09/16 09/09/16 09/09/16 Range/Units 06:06 05:26 00:02 WBC 13.4 H D (4.8-10.8) K/uL RBC 2.86 L (4.40-5.90) Mil/uL Hgb 8.9 L (12.0-18.0) g/dL Hct 27.0 L (35.0-51.0) % MCV 94.2 H D (80.0-94.0) fL MCH 31.1 H (27.0-31.0) pg MCHC 33.0 (33.0-37.0) g/dL RDW 13.7 (11.5-14.5) % Plt Count 243 (130-400) K/uL MPV 9.4 (7.2-11.7) fL Neut % (Auto) 91.9 H (50.0-75.0) % Lymph % (Auto) 2.9 L (20.0-40.0) % [place] % (Auto) 5.0 (0.0-10.0) % Eos % (Auto) 0.0 (0.0-4.0) % Baso % (Auto) 0.2 (0.0-2.0) % Neut # 12.3 H (1.8-7.0) K/uL Lymph # 0.4 L (1.0-4.3) K/uL [place] # 0.7 (0.0-0.8) K/uL Eos # 0.0 (0.0-0.7) K/uL Baso # 0.0 (0.0-0.2) K/uL Neutrophils % (Manual) 95 H (50-75) % Band Neutrophils % 1 (0-2) % Lymphocytes % (Manual) 2 L (20-40) % Monocytes % (Manual) 2 (0-10) % Platelet Estimate Normal (NORMAL) Mathews Cells Slight PT 12.5 H (9.7-12.2) SECONDS INR 1.1 APTT 68 H (21-34) SECONDS Puncture Site Rrad pCO2 35 (35-45) mm/Hg pO2 80 (80-100) mm/Hg HCO3 23.8 (21-28) mmol/L ABG pH 7.42 (7.35-7.45) ABG Total CO2 23.8 (22-28) mmol/L ABG O2 Saturation 98.4 H (95-98) % ABG Base Excess -1.5 (-2.0-3.0) mmol/L ABG Hemoglobin 8.8 L (11.7-17.4) g/dL ABG Carboxyhemoglobin 1.2 (0.5-1.5) % POC ABG HHb (Measured) 1.6 (0.0-5.0) % ABG Methemoglobin 1.0 (0.0-3.0) % Tejinder Test Pos A-a O2 Difference 589.0 mm/Hg Respiratory Index 7.4 Hgb O2 Saturation 96.2 (95.0-98.0) % Mechanical Rate 12 FiO2 100.0 % Tidal Volume 500 PEEP 5 Sodium 140 (132-148) mmol/L Potassium 3.9 (3.6-5.2) mmol/L Chloride 102 (98-107) mmol/L Carbon Dioxide 19 L (22-30) mmol/L Anion Gap 23 H (10-20) BUN 94 H (9-20) mg/dL Creatinine 4.2 H (0.8-1.5) MG/DL Est GFR ( Amer) 17 Est GFR (Non-Af Amer) 14 POC Glucose (mg/dL) 478 H* (65-110) mg/dL Random Glucose 354 H (75-110) mg/dL Calcium 7.1 L (8.6-10.4) mg/dl Phosphorus 4.7 H (2.5-4.5) mg/dL Magnesium 2.6 H (1.6-2.3) mg/dL Total Bilirubin 0.4 (0.2-1.3) mg/dL AST 37 (17-59) U/L ALT 44 (21-72) U/L Alkaline Phosphatase 84 (38-126) U/L Total Protein 5.8 L (6.3-8.3) g/dL Albumin 2.8 L (3.5-5.0) g/dL Globulin 3.0 (2.2-3.9) gm/dL Albumin/Globulin Ratio 0.9 L (1.0-2.1) Hep Bs Antigen (NEGATIVE) Hep Bs Antibody (NEGATIVE) Hep B Core IgM Ab (NEGATIVE) Hepatitis C Antibody (NEGATIVE) 09/08/16 Range/Units 17:50 WBC (4.8-10.8) K/uL RBC (4.40-5.90) Mil/uL Hgb (12.0-18.0) g/dL Hct (35.0-51.0) % MCV (80.0-94.0) fL MCH (27.0-31.0) pg MCHC (33.0-37.0) g/dL RDW (11.5-14.5) % Plt Count (130-400) K/uL MPV (7.2-11.7) fL Neut % (Auto) (50.0-75.0) % Lymph % (Auto) (20.0-40.0) % [place] % (Auto) (0.0-10.0) % Eos % (Auto) (0.0-4.0) % Baso % (Auto) (0.0-2.0) % Neut # (1.8-7.0) K/uL Lymph # (1.0-4.3) K/uL [place] # (0.0-0.8) K/uL Eos # (0.0-0.7) K/uL Baso # (0.0-0.2) K/uL Neutrophils % (Manual) (50-75) % Band Neutrophils % (0-2) % Lymphocytes % (Manual) (20-40) % Monocytes % (Manual) (0-10) % Platelet Estimate (NORMAL) Sujey Cells PT (9.7-12.2) SECONDS INR APTT (21-34) SECONDS Puncture Site pCO2 (35-45) mm/Hg pO2 (80-100) mm/Hg HCO3 (21-28) mmol/L ABG pH (7.35-7.45) ABG Total CO2 (22-28) mmol/L ABG O2 Saturation (95-98) % ABG Base Excess (-2.0-3.0) mmol/L ABG Hemoglobin (11.7-17.4) g/dL ABG Carboxyhemoglobin (0.5-1.5) % POC ABG HHb (Measured) (0.0-5.0) % ABG Methemoglobin (0.0-3.0) % Tejinder Test A-a O2 Difference mm/Hg Respiratory Index Hgb O2 Saturation (95.0-98.0) % Mechanical Rate FiO2 % Tidal Volume PEEP Sodium (132-148) mmol/L Potassium (3.6-5.2) mmol/L Chloride (98-107) mmol/L Carbon Dioxide (22-30) mmol/L Anion Gap (10-20) BUN (9-20) mg/dL Creatinine (0.8-1.5) MG/DL Est GFR ( Amer) Est GFR (Non-Af Amer) POC Glucose (mg/dL) 381 H (65-110) mg/dL Random Glucose (75-110) mg/dL Calcium (8.6-10.4) mg/dl Phosphorus (2.5-4.5) mg/dL Magnesium (1.6-2.3) mg/dL Total Bilirubin (0.2-1.3) mg/dL AST (17-59) U/L ALT (21-72) U/L Alkaline Phosphatase (38-126) U/L Total Protein (6.3-8.3) g/dL Albumin (3.5-5.0) g/dL Globulin (2.2-3.9) gm/dL Albumin/Globulin Ratio (1.0-2.1) Hep Bs Antigen (NEGATIVE) Hep Bs Antibody (NEGATIVE) Hep B Core IgM Ab (NEGATIVE) Hepatitis C Antibody (NEGATIVE) Laboratory Results - last 24 hr 09/08/16 09/09/16 09/09/16 17:50 00:02 05:26 WBC RBC Hgb Hct MCV MCH MCHC RDW Plt Count MPV Neut % (Auto) Lymph % (Auto) [place] % (Auto) Eos % (Auto) Baso % (Auto) Neut # Lymph # [place] # Eos # Baso # Neutrophils % (Manual) Band Neutrophils % Lymphocytes % (Manual) Monocytes % (Manual) Platelet Estimate Sujey Cells PT INR APTT Puncture Site Rrad pCO2 35 pO2 80 HCO3 23.8 ABG pH 7.42 ABG Total CO2 23.8 ABG O2 Saturation 98.4 H ABG Base Excess -1.5 ABG Hemoglobin 8.8 L ABG Carboxyhemoglobin 1.2 POC ABG HHb (Measured) 1.6 ABG Methemoglobin 1.0 Tejinder Test Pos A-a O2 Difference 589.0 Respiratory Index 7.4 Hgb O2 Saturation 96.2 Mechanical Rate 12 FiO2 100.0 Tidal Volume 500 PEEP 5 Sodium Potassium Chloride Carbon Dioxide Anion Gap BUN Creatinine Est GFR ( Amer) Est GFR (Non-Af Amer) POC Glucose (mg/dL) 381 H 478 H* Random Glucose Calcium Phosphorus Magnesium Total Bilirubin AST ALT Alkaline Phosphatase Total Protein Albumin Globulin Albumin/Globulin Ratio Hep Bs Antigen Hep Bs Antibody Hep B Core IgM Ab Hepatitis C Antibody 09/09/16 09/09/16 09/09/16 06:06 06:21 11:34 WBC 13.4 H D RBC 2.86 L Hgb 8.9 L Hct 27.0 L MCV 94.2 H D MCH 31.1 H MCHC 33.0 RDW 13.7 Plt Count 243 MPV 9.4 Neut % (Auto) 91.9 H Lymph % (Auto) 2.9 L [place] % (Auto) 5.0 Eos % (Auto) 0.0 Baso % (Auto) 0.2 Neut # 12.3 H Lymph # 0.4 L [place] # 0.7 Eos # 0.0 Baso # 0.0 Neutrophils % (Manual) 95 H Band Neutrophils % 1 Lymphocytes % (Manual) 2 L Monocytes % (Manual) 2 Platelet Estimate Normal Mathews Cells Slight PT 12.5 H INR 1.1 APTT 68 H Puncture Site pCO2 pO2 HCO3 ABG pH ABG Total CO2 ABG O2 Saturation ABG Base Excess ABG Hemoglobin ABG Carboxyhemoglobin POC ABG HHb (Measured) ABG Methemoglobin Tejinder Test A-a O2 Difference Respiratory Index Hgb O2 Saturation Mechanical Rate FiO2 Tidal Volume PEEP Sodium 140 Potassium 3.9 Chloride 102 Carbon Dioxide 19 L Anion Gap 23 H BUN 94 H Creatinine 4.2 H Est GFR ( Amer) 17 Est GFR (Non-Af Amer) 14 POC Glucose (mg/dL) 375 H 488 H* Random Glucose 354 H Calcium 7.1 L Phosphorus 4.7 H Magnesium 2.6 H Total Bilirubin 0.4 AST 37 ALT 44 Alkaline Phosphatase 84 Total Protein 5.8 L Albumin 2.8 L Globulin 3.0 Albumin/Globulin Ratio 0.9 L Hep Bs Antigen Hep Bs Antibody Hep B Core IgM Ab Hepatitis C Antibody 09/09/16 14:26 WBC RBC Hgb Hct MCV MCH MCHC RDW Plt Count MPV Neut % (Auto) Lymph % (Auto) [place] % (Auto) Eos % (Auto) Baso % (Auto) Neut # Lymph # [place] # Eos # Baso # Neutrophils % (Manual) Band Neutrophils % Lymphocytes % (Manual) Monocytes % (Manual) Platelet Estimate Mathews Cells PT INR APTT Puncture Site pCO2 pO2 HCO3 ABG pH ABG Total CO2 ABG O2 Saturation ABG Base Excess ABG Hemoglobin ABG Carboxyhemoglobin POC ABG HHb (Measured) ABG Methemoglobin Tejinder Test A-a O2 Difference Respiratory Index Hgb O2 Saturation Mechanical Rate FiO2 Tidal Volume PEEP Sodium Potassium Chloride Carbon Dioxide Anion Gap BUN Creatinine Est GFR ( Amer) Est GFR (Non-Af Amer) POC Glucose (mg/dL) Random Glucose Calcium Phosphorus Magnesium Total Bilirubin AST ALT Alkaline Phosphatase Total Protein Albumin Globulin Albumin/Globulin Ratio Hep Bs Antigen Negative Hep Bs Antibody Negative Hep B Core IgM Ab Negative Hepatitis C Antibody Negative Critical Care Progress Note - Nutrition Nutrition: Nutrition Category Date Time Status Renal Diet [DIET] Diets 09/04/16 Lunch Active Assessment/Plan (1) Respiratory failure with hypoxia Current Visit: Yes Status: Acute (2) NSTEMI (non-ST elevation myocardial infarction) Current Visit: Yes Status: Acute (3) Acute kidney injury superimposed on CKD Current Visit: No Status: Chronic Comment: LUIS EDUARDO on CKD stage IV cont Renagel Renal Sono: no obstruction Nephrology- Dr Laguerre consulted- pt to ff up with dr Laguerre Attending/Attestation - Attestation I have personally seen and examined this patient.: Yes I have fully participated in the care of the patient.: Yes I have reviewed all pertinent clinical information: Yes Notes (Text): 09/09/16 17:01 patient seen and examined in the intensive care unit. Case discussed with staff in the morning rounds. Remains intubated on ventilatory support requiring 100% FiO2 with saturationIn the low 90s Chest X-Ray Noted. Worsening renal function Dialysis catheter inserted in right femoral vein under aseptic conditions and local anesthesia without any complications Spoke with nephrology for hemodialysis spoke with family at length seen by cardiology and possible cardiac cath
[2016-09-09 08:22] LABS: NEUTROPHIL 95 % (50-75); TOTAL CELLS COUNTED 100
[2016-09-09] MEDS ORDERED: Bisacodyl 5mg EC Tab PO ONE (09:02)
--- NOTE | 2016-09-09 09:03 | RAD ---
HISTORY: ARDS COMPARISON: 09/08/2016 FINDINGS: LUNGS: Lines and tubes stable position. Worsening now diffuse confluent bilateral airspace opacities throughout both lungs with associated moderate bilateral pleural effusions. PLEURA: As above. CARDIOVASCULAR: Cardiomegaly. Calcification at the aortic knob. OSSEOUS STRUCTURES: No significant abnormalities. VISUALIZED UPPER ABDOMEN: Normal. OTHER FINDINGS: None. IMPRESSION: Lines and tubes stable position. Worsening now diffuse confluent bilateral airspace opacities throughout both lungs with associated moderate bilateral pleural effusions.
[2016-09-09] MEDS: Pantoprazole 40 mg Susp UD PO SCH (09:31)
--- NOTE | 2016-09-09 13:22 | CP.PCM.PN ---
Subjective - Date & Time of Evaluation Date of Evaluation: 09/09/16 Time of Evaluation: 13:18 - Subjective Subjective: Reviewed case with ICU team, discussed with family at length. UO-925ml; CXR with worsening pulmonary edema Creat 4.2 Patient with known CKD, now with LUIS EDUARDO, pulmonary edema due to cardiorenal syndrome. Family agrees to dialysis now- risks explained Objective - Vital Signs/Intake and Output Vital Signs (last 24 hours): Temp Pulse Resp BP Pulse Ox 98.7 F 97 H 18 129/66 96 09/09/16 12:00 09/09/16 13:00 09/09/16 13:00 09/09/16 13:00 09/09/16 13:00 Intake and Output: 09/09/16 09/09/16 06:59 18:59 Intake Total 900.2 399.4 Output Total 640 235 Balance 260.2 164.4 - Medications Medications: Current Medications Albuterol/Ipratropium (Duoneb 3 Mg/0.5 Mg (3 Ml) Ud) 3 ml INH RQ6 [facility] Last Admin: 09/09/16 07:40 Dose: 3 ml Aspirin (Aspirin Chewable) 81 mg PO DAILY [facility] Last Admin: 09/09/16 09:30 Dose: 81 mg Epoetin Dominik (Procrit) 10,000 unit SC TTS [facility] Heparin Sodium/Sodium Chloride (Heparin 45340 Units/250ml 1/2 Normal Saline) 250 mls @ 8.638 mls/hr IV .Q24H PRN; Protocol; 12 UNITS/KG/HR PRN Reason: PROTOCOL Last Admin: 09/08/16 16:36 Dose: 8.638 mls/hr Propofol (Diprivan) 100 mls @ 2.16 mls/hr IV .Q24H PRN; Protocol; 5 MCG/KG/MIN PRN Reason: TITRATE PER MD ORDER Last Titration: 09/09/16 06:00 Dose: 30.09 mcg/kg/min Insulin Aspart (Novolog) 0 unit SC Q6 [facility] PRN Reason: Protocol Last Admin: 09/09/16 12:08 Dose: 12 unit Insulin Detemir (Levemir) 20 unit SC HS [facility] Isosorbide Mononitrate (Imdur) 60 mg PO DAILY [facility] Last Admin: 09/08/16 10:51 Dose: 60 mg Levothyroxine Sodium (Synthroid) 50 mcg PO DAILY@0630 [facility] Last Admin: 09/09/16 06:12 Dose: 50 mcg Methylprednisolone (Solu-Medrol) 40 mg IVP Q8 [facility] Last Admin: 09/09/16 05:49 Dose: 40 mg Pantoprazole Sodium (Protonix Susp) 40 mg PO DAILY [facility] Last Admin: 09/09/16 09:31 Dose: 40 mg Rosuvastatin Calcium (Crestor) 10 mg PO HS [facility] Last Admin: 09/08/16 21:06 Dose: 10 mg - Labs Labs: 09/09/16 06:06 09/09/16 06:06 PT 12.5 SECONDS (9.7-12.2) H 09/09/16 06:06 INR 1.1 09/09/16 06:06 APTT 68 SECONDS (21-34) H 09/09/16 06:06 - Constitutional Appears: Toxic, In Acute Distress, Chronically Ill - Head Exam Head Exam: ATRAUMATIC, NORMAL INSPECTION - Eye Exam Eye Exam: EOMI - Neck Exam Neck Exam: Normal Inspection. absent: Tenderness - Respiratory Exam Respiratory Exam: Rhonchi, Respiratory Distress - Cardiovascular Exam Cardiovascular Exam: REGULAR RHYTHM, +S1 - GI/Abdominal Exam GI & Abdominal Exam: Soft. absent: Tenderness - Extremities Exam Extremities Exam: Normal Inspection. absent: Tenderness - Neurological Exam Neurological Exam: Altered, CN II-XII Intact - Skin Skin Exam: Dry, Warm Assessment and Plan (1) NSTEMI (non-ST elevation myocardial infarction) Status: Acute (2) Pulmonary edema Status: Acute (3) Acute kidney injury superimposed on CKD Status: Chronic (4) Cardiorenal syndrome with renal failure Status: Acute - Assessment and Plan (Free Text) Plan: Will schedule dialysis now and then daily as tolerated. Will try to UF progressively Cath placed; consent obtained
--- NOTE | 2016-09-09 17:53 | CP.PCM.PN ---
Subjective - Date & Time of Evaluation Date of Evaluation: 09/09/16 Time of Evaluation: 09:00 - Subjective Subjective: afebrile on vent NAD rx in progress sedated HD ongoing discussed with dr mercer in detail Objective - Vital Signs/Intake and Output Vital Signs (last 24 hours): Temp Pulse Resp BP Pulse Ox 98.1 F 96 H 19 131/69 98 09/09/16 17:45 09/09/16 17:45 09/09/16 17:45 09/09/16 17:45 09/09/16 17:45 Intake and Output: 09/09/16 09/09/16 06:59 18:59 Intake Total 900.2 761.4 Output Total 640 525 Balance 260.2 236.4 - Medications Medications: Current Medications Albuterol/Ipratropium (Duoneb 3 Mg/0.5 Mg (3 Ml) Ud) 3 ml INH RQ6 [facility] Last Admin: 09/09/16 13:21 Dose: 3 ml Aspirin (Aspirin Chewable) 81 mg PO DAILY [facility] Last Admin: 09/09/16 09:30 Dose: 81 mg Epoetin Dominik (Procrit) 10,000 unit IV TTS [facility] Heparin Sodium/Sodium Chloride (Heparin 00456 Units/250ml 1/2 Normal Saline) 250 mls @ 8.638 mls/hr IV .Q24H PRN; Protocol; 12 UNITS/KG/HR PRN Reason: PROTOCOL Last Admin: 09/08/16 16:36 Dose: 8.638 mls/hr Propofol (Diprivan) 100 mls @ 2.16 mls/hr IV .Q24H PRN; Protocol; 5 MCG/KG/MIN PRN Reason: TITRATE PER MD ORDER Last Titration: 09/09/16 14:26 Dose: 32.41 mcg/kg/min Insulin Aspart (Novolog) 0 unit SC Q6 [facility] PRN Reason: Protocol Last Admin: 09/09/16 12:08 Dose: 12 unit Insulin Detemir (Levemir) 20 unit SC [facility] Isosorbide Mononitrate (Imdur) 60 mg PO DAILY [facility] Last Admin: 09/09/16 14:36 Dose: Not Given Levothyroxine Sodium (Synthroid) 50 mcg PO DAILY@0630 [facility] Last Admin: 09/09/16 06:12 Dose: 50 mcg Methylprednisolone (Solu-Medrol) 40 mg IVP Q8 [facility] Last Admin: 09/09/16 13:24 Dose: 40 mg Pantoprazole Sodium (Protonix Susp) 40 mg PO DAILY [facility] Last Admin: 09/09/16 09:31 Dose: 40 mg Rosuvastatin Calcium (Crestor) 10 mg PO HS [facility] Last Admin: 09/08/16 21:06 Dose: 10 mg - Labs Labs: 09/09/16 06:06 09/09/16 06:06 PT 12.5 SECONDS (9.7-12.2) H 09/09/16 06:06 INR 1.1 09/09/16 06:06 APTT 68 SECONDS (21-34) H 09/09/16 06:06 - Constitutional Appears: Non-toxic, Chronically Ill - Head Exam Head Exam: NORMOCEPHALIC - Eye Exam Eye Exam: PERRL. absent: Scleral icterus - ENT Exam ENT Exam: Mucous Membranes Dry, Normal External Ear Exam - Neck Exam Neck Exam: absent: Lymphadenopathy - Respiratory Exam Respiratory Exam: Decreased Breath Sounds, Rales, Rhonchi - Cardiovascular Exam Cardiovascular Exam: REGULAR RHYTHM, +S1, +S2 - GI/Abdominal Exam GI & Abdominal Exam: Distended, Soft. absent: Tenderness - Rectal Exam Rectal Exam: Deferred - Exam Exam: NORMAL INSPECTION - Extremities Exam Extremities Exam: absent: Pedal Edema - Back Exam Back Exam: absent: CVA tenderness (L), CVA tenderness (R) - Neurological Exam Neurological Exam: Altered - Psychiatric Exam Psychiatric exam: Depressed - Skin Skin Exam: Dry, Intact Assessment and Plan (1) Cardiorenal syndrome with renal failure Status: Acute (2) NSTEMI (non-ST elevation myocardial infarction) Status: Acute (3) Pulmonary edema Status: Acute (4) Respiratory failure with hypoxia Status: Acute (5) DVT prophylaxis Status: Acute (6) Renal failure Status: Acute (7) Syncope Status: Acute (8) Acute kidney injury superimposed on CKD Status: Chronic
--- NOTE | 2016-09-09 18:00 | CP.PCM.PN ---
Subjective - Date & Time of Evaluation Date of Evaluation: 09/09/16 Time of Evaluation: 14:00 - Subjective Subjective: on vent now for HD poor prognosis Objective - Vital Signs/Intake and Output Vital Signs (last 24 hours): Temp Pulse Resp BP Pulse Ox 98.1 F 96 H 19 131/69 98 09/09/16 17:45 09/09/16 17:45 09/09/16 17:45 09/09/16 17:45 09/09/16 17:45 Intake and Output: 09/09/16 09/09/16 06:59 18:59 Intake Total 900.2 761.4 Output Total 640 525 Balance 260.2 236.4 - Medications Medications: Current Medications Albuterol/Ipratropium (Duoneb 3 Mg/0.5 Mg (3 Ml) Ud) 3 ml INH RQ6 [facility] Last Admin: 09/09/16 13:21 Dose: 3 ml Aspirin (Aspirin Chewable) 81 mg PO DAILY [facility] Last Admin: 09/09/16 09:30 Dose: 81 mg Epoetin Dominik (Procrit) 10,000 unit IV TTS [facility] Heparin Sodium/Sodium Chloride (Heparin 59865 Units/250ml 1/2 Normal Saline) 250 mls @ 8.638 mls/hr IV .Q24H PRN; Protocol; 12 UNITS/KG/HR PRN Reason: PROTOCOL Last Admin: 09/08/16 16:36 Dose: 8.638 mls/hr Propofol (Diprivan) 100 mls @ 2.16 mls/hr IV .Q24H PRN; Protocol; 5 MCG/KG/MIN PRN Reason: TITRATE PER MD ORDER Last Titration: 09/09/16 14:26 Dose: 32.41 mcg/kg/min Insulin Aspart (Novolog) 0 unit SC Q6 [facility] PRN Reason: Protocol Last Admin: 09/09/16 12:08 Dose: 12 unit Insulin Detemir (Levemir) 20 unit SC [facility] Isosorbide Mononitrate (Imdur) 60 mg PO DAILY [facility] Last Admin: 09/09/16 14:36 Dose: Not Given Levothyroxine Sodium (Synthroid) 50 mcg PO DAILY@0630 [facility] Last Admin: 09/09/16 06:12 Dose: 50 mcg Methylprednisolone (Solu-Medrol) 40 mg IVP Q8 [facility] Last Admin: 09/09/16 13:24 Dose: 40 mg Pantoprazole Sodium (Protonix Susp) 40 mg PO DAILY [facility] Last Admin: 09/09/16 09:31 Dose: 40 mg Rosuvastatin Calcium (Crestor) 10 mg PO HS [facility] Last Admin: 09/08/16 21:06 Dose: 10 mg - Labs Labs: 09/09/16 06:06 09/09/16 06:06 PT 12.5 SECONDS (9.7-12.2) H 09/09/16 06:06 INR 1.1 09/09/16 06:06 APTT 68 SECONDS (21-34) H 09/09/16 06:06 - Constitutional Appears: Toxic - Head Exam Head Exam: ATRAUMATIC - Eye Exam Eye Exam: EOMI - ENT Exam ENT Exam: Mucous Membranes Moist - Neck Exam Neck Exam: absent: Lymphadenopathy, Thyromegaly - Respiratory Exam Respiratory Exam: Clear to Ausculation Bilateral, Rales - Cardiovascular Exam Cardiovascular Exam: REGULAR RHYTHM, Murmur - GI/Abdominal Exam GI & Abdominal Exam: Normal Bowel Sounds. absent: Organomegaly - Rectal Exam Rectal Exam: Deferred - Extremities Exam Extremities Exam: Normal Capillary Refill. absent: Calf Tenderness - Neurological Exam Neurological Exam: Alert - Psychiatric Exam Psychiatric exam: Anxious - Skin Skin Exam: Dry Assessment and Plan (1) NSTEMI (non-ST elevation myocardial infarction) Status: Acute (2) Pulmonary edema Status: Acute (3) Acute kidney injury superimposed on CKD Status: Chronic (4) Brain mass Status: Chronic (5) DM2 (diabetes mellitus, type 2) Status: Chronic (6) HTN (hypertension) Status: Chronic
--- NOTE | 2016-09-09 18:10 | CP.PCM.PN ---
Subjective - Date & Time of Evaluation Date of Evaluation: 09/09/16 Time of Evaluation: 15:00 - Subjective Subjective: respiratory and renal function worsening rx is progress in icu on ventilator catheter is placed Objective - Vital Signs/Intake and Output Vital Signs (last 24 hours): Temp Pulse Resp BP Pulse Ox 98.1 F 96 H 19 125/69 97 09/09/16 17:45 09/09/16 18:00 09/09/16 18:00 09/09/16 18:00 09/09/16 18:00 Intake and Output: 09/09/16 09/09/16 06:59 18:59 Intake Total 900.2 761.4 Output Total 640 525 Balance 260.2 236.4 - Medications Medications: Current Medications Albuterol/Ipratropium (Duoneb 3 Mg/0.5 Mg (3 Ml) Ud) 3 ml INH RQ6 [facility] Last Admin: 09/09/16 13:21 Dose: 3 ml Aspirin (Aspirin Chewable) 81 mg PO DAILY [facility] Last Admin: 09/09/16 09:30 Dose: 81 mg Epoetin Dominik (Procrit) 10,000 unit IV TTS [facility] Heparin Sodium/Sodium Chloride (Heparin 53100 Units/250ml 1/2 Normal Saline) 250 mls @ 8.638 mls/hr IV .Q24H PRN; Protocol; 12 UNITS/KG/HR PRN Reason: PROTOCOL Last Admin: 09/08/16 16:36 Dose: 8.638 mls/hr Propofol (Diprivan) 100 mls @ 2.16 mls/hr IV .Q24H PRN; Protocol; 5 MCG/KG/MIN PRN Reason: TITRATE PER MD ORDER Last Titration: 09/09/16 14:26 Dose: 32.41 mcg/kg/min Insulin Aspart (Novolog) 0 unit SC Q6 [facility] PRN Reason: Protocol Last Admin: 09/09/16 18:05 Dose: 6 unit Insulin Detemir (Levemir) 20 unit SC HS [facility] Isosorbide Mononitrate (Imdur) 60 mg PO DAILY [facility] Last Admin: 09/09/16 14:36 Dose: Not Given Levothyroxine Sodium (Synthroid) 50 mcg PO DAILY@0630 [facility] Last Admin: 09/09/16 06:12 Dose: 50 mcg Methylprednisolone (Solu-Medrol) 40 mg IVP Q8 [facility] Last Admin: 09/09/16 13:24 Dose: 40 mg Pantoprazole Sodium (Protonix Susp) 40 mg PO DAILY [facility] Last Admin: 09/09/16 09:31 Dose: 40 mg Rosuvastatin Calcium (Crestor) 10 mg PO HS [facility] Last Admin: 09/08/16 21:06 Dose: 10 mg - Labs Labs: 09/09/16 06:06 09/09/16 06:06 PT 12.5 SECONDS (9.7-12.2) H 09/09/16 06:06 INR 1.1 09/09/16 06:06 APTT 68 SECONDS (21-34) H 09/09/16 06:06 - Constitutional Appears: Well - Head Exam Head Exam: ATRAUMATIC, NORMAL INSPECTION, NORMOCEPHALIC - Eye Exam Eye Exam: EOMI, Normal appearance, PERRL Pupil Exam: NORMAL ACCOMODATION, PERRL - ENT Exam ENT Exam: Mucous Membranes Moist, Normal Exam - Neck Exam Neck Exam: Full ROM, Normal Inspection. absent: Lymphadenopathy - Respiratory Exam Respiratory Exam: Decreased Breath Sounds - Cardiovascular Exam Cardiovascular Exam: REGULAR RHYTHM, +S1, +S2 - GI/Abdominal Exam GI & Abdominal Exam: Soft, Diminished Bowel Sounds - Rectal Exam Rectal Exam: Deferred Assessment and Plan - Assessment and Plan (Free Text) Plan: f/u with Dr. Cain f/u with Dr. Garcia f/u with dr. deshpande pt, is on ventilator catheter placed continue rx as ordered
[2016-09-09] MEDS ORDERED: Insulin Detemir 100 units/ml Vial (Levemir) SC SCH (22:00)
[2016-09-10] MEDS ORDERED: Insulin Detemir 100 units/ml Vial (Levemir) SC ONE (00:19)
[2016-09-10] MEDS: Albuterol-Ipratrop 3 mg / 0.5 (3 ml) UD INH SCH ×4 (00:59→20:30)
[2016-09-10 05:39] LABS: ABG ALLEN TEST POS; ABG MECHANICAL RATE 20; ARTERIAL BLOOD HGB O2 SAT 95.9 % (95.0-98.0); ATERIAL BLOOD GAS PEEP 8; CARBOXYHEMOGLOBIN 1.5 % (0.5-1.5); DRAW SITE RRAD; HHB 1.1 % (0.0-5.0); METHEMOGLOBIN 1.5 % (0.0-3.0)
[2016-09-10] MEDS: Levothyroxine 50 MCG TAB PO SCH (06:00)
[2016-09-10] MEDS: MethylPREDNISolone 40 mg Vial IVP SCH (06:00)
[2016-09-10] MEDS: (Novolog) Insulin Aspart, Recombinant 100 u/ml 10 ml vial SC SCH ×4 (06:05→18:18)
[2016-09-10 06:47] LABS: BASO % 0.1 % (0.0-2.0); HEMATOCRIT 26.1 % (35.0-51.0); LYMPH # 0.5 K/uL (1.0-4.3); LYMPH % 4.9 % (20.0-40.0); MEAN CORPUSCULAR HEMOGLOBIN 31.2 pg (27.0-31.0); MEAN CORPUSCULAR HGB CONC 33.2 g/dL (33.0-37.0); MEAN PLATELET VOLUME 9.5 fL (7.2-11.7); MONO # 1.1 K/uL (0.0-0.8); MONO % 9.8 % (0.0-10.0); NRBC % 0.1 % (0.0-2.0); PLATELET COUNT 217 K/uL (130-400); RED CELL DISTRIBUTION WIDTH 13.7 % (11.5-14.5); WHITE BLOOD COUNT 10.8 K/uL (4.8-10.8)
[2016-09-10 06:59] LABS: POTASSIUM 3.7 mmol/L (3.6-5.2)
[2016-09-10 07:01] LABS: BILIRUBIN,TOTAL 0.4 mg/dL (0.2-1.3); TOTAL PROTEIN 5.5 g/dL (6.3-8.3)
[2016-09-10 07:02] LABS: MAGNESIUM 2.6 mg/dL (1.6-2.3); PHOSPHOROUS 3.9 mg/dL (2.5-4.5)
--- NOTE | 2016-09-10 07:56 | CP.CCUPN ---
<Linda Guardado - Last Filed: 09/10/16 11:05> CCU Subjective - Physician Review Subjective (Free Text): Patient was seen and examined at bedside. Patient is currently intubated on PVRC : FiO2 80, PEEP 10, RR 16, Tvolume 450 saturating at 100%. Wade catheter was placed yesterday. Patient underwent dialysis yesterday. Currently undergoing dialysis. Cardiac Cath tomorrow. CCU Objective - Vital Signs / Intake & Output Vital Signs (Last 4 hours): Vital Signs Temp Pulse Resp BP Pulse Ox 09/10/16 06:00 75 20 123/56 L 99 09/10/16 05:00 80 20 118/53 L 98 09/10/16 04:00 98.6 F 79 18 114/53 L 98 Intake and Output (Last 8hrs): Intake & Output 09/09/16 09/10/16 09/10/16 22:59 06:59 14:59 Intake Total 529.9 388.4 47.3 Output Total 220 Balance 309.9 388.4 47.3 Weight 165 lb 163 lb Intake: IV 20 Intake, IV Amount 164.9 138.4 17.3 Right Proximal Port PICC 121.9 138.4 17.3 Right PICC 43.0 Tube Feeding 345 250 30 Output: Urine 220 Urethral (Garza) 220 - Physical Exam Physical Exam Limitations: Positive for: Other (Intubated) Head: Positive for: Atraumatic, Normocephalic Pupils: Positive for: PERRL Extroacular Muscles: Positive for: EOMI Conjunctiva: Positive for: Normal Mouth: Positive for: Moist Mucous Membranes, Other (ET in place) Neck: Positive for: Normal Range of Motion Respiratory/Chest: Positive for: Decreased Breath Sounds Cardiovascular: Positive for: Regular Rate and Rhythm, Normal S1, S2 Abdomen: Positive for: Distention, Normal Bowel Sounds. Negative for: Tenderness Upper Extremity: Positive for: Normal Inspection. Negative for: Cyanosis, Edema Lower Extremity: Positive for: Normal Inspection. Negative for: Edema Neurological: Positive for: GCS=15 Skin: Positive for: Warm, Dry Psychiatric: Positive for: Alert, Oriented x 3, Normal Insight - Medications Active Medications: Active Medications Generic Name Dose Route Start Last Admin Trade Name Freq PRN Reason Stop Dose Admin Albuterol/Ipratropium 3 ml 09/04/16 20:00 09/10/16 07:35 Duoneb 3 Mg/0.5 Mg (3 Ml) Ud INH 3 ml RQ6 CHRISTINA Administration Epoetin Dominik 10,000 unit 09/10/16 10:00 Procrit IV TTS CHRISTINA Propofol 100 mls @ 2.16 mls/hr 09/07/16 14:20 09/10/16 07:15 Diprivan IV 7 mcg/kg/min .Q24H PRN Titration TITRATE PER MD ORDER Protocol 5 MCG/KG/MIN Insulin Aspart 0 unit 09/08/16 18:00 09/10/16 06:05 Novolog SC 12 unit Q6 CHRISTINA Administration Protocol Insulin Detemir 30 unit 09/10/16 22:00 Levemir SC HS CHRISTINA Levothyroxine Sodium 50 mcg 09/05/16 06:30 09/10/16 06:00 Synthroid PO 50 mcg DAILY@0630 CHRISTINA Administration Lorazepam 2 mg 09/09/16 19:18 Ativan IVP Q6H PRN Anxiety Methylprednisolone 40 mg 09/07/16 22:00 09/10/16 06:00 Solu-Medrol IVP 40 mg Q8 CHRISTINA Administration Pantoprazole Sodium 40 mg 09/08/16 10:15 09/09/16 09:31 Protonix Susp PO 40 mg DAILY CHRISTIAN Administration Rosuvastatin Calcium 10 mg 09/04/16 21:15 09/09/16 21:50 Crestor PO 10 mg HS CHRISTINA Administration - Patient Studies Lab Studies: Microbiology Studies 09/07/16 Unknown MRSA Culture (Admit) - Final Naris MRSA NOT DETECTED Lab Studies 09/10/16 09/10/16 09/10/16 Range/Units 06:41 05:37 05:28 WBC 10.8 (4.8-10.8) K/uL RBC 2.78 L (4.40-5.90) Mil/uL Hgb 8.7 L (12.0-18.0) g/dL Hct 26.1 L (35.0-51.0) % MCV 94.0 (80.0-94.0) fL MCH 31.2 H (27.0-31.0) pg MCHC 33.2 (33.0-37.0) g/dL RDW 13.7 (11.5-14.5) % Plt Count 217 (130-400) K/uL MPV 9.5 (7.2-11.7) fL Neut % (Auto) 85.2 H (50.0-75.0) % Lymph % (Auto) 4.9 L (20.0-40.0) % [place] % (Auto) 9.8 (0.0-10.0) % Eos % (Auto) 0.0 (0.0-4.0) % Baso % (Auto) 0.1 (0.0-2.0) % Neut # 9.2 H (1.8-7.0) K/uL Lymph # 0.5 L (1.0-4.3) K/uL [place] # 1.1 H (0.0-0.8) K/uL Eos # 0.0 (0.0-0.7) K/uL Baso # 0.0 (0.0-0.2) K/uL Neutrophils % (Manual) (50-75) % Band Neutrophils % (0-2) % Lymphocytes % (Manual) (20-40) % Monocytes % (Manual) (0-10) % Platelet Estimate (NORMAL) Sujey Cells PT 11.4 (9.7-12.2) SECONDS INR 1.0 APTT 25 D (21-34) SECONDS Puncture Site Rrad pCO2 34 L (35-45) mm/Hg pO2 91 (80-100) mm/Hg HCO3 28.0 (21-28) mmol/L ABG pH 7.51 H (7.35-7.45) ABG Total CO2 28.1 H (22-28) mmol/L ABG O2 Saturation 98.9 H (95-98) % ABG Base Excess 4.0 H (-2.0-3.0) mmol/L ABG Hemoglobin 9.6 L (11.7-17.4) g/dL ABG Carboxyhemoglobin 1.5 (0.5-1.5) % POC ABG HHb (Measured) 1.1 (0.0-5.0) % ABG Methemoglobin 1.5 (0.0-3.0) % Tejinder Test Pos A-a O2 Difference 437.0 mm/Hg Respiratory Index 4.8 Hgb O2 Saturation 95.9 (95.0-98.0) % Mechanical Rate 20 FiO2 80.0 % Tidal Volume 500 PEEP 8 Sodium 137 (132-148) mmol/L Potassium 3.7 (3.6-5.2) mmol/L Chloride 97 L (98-107) mmol/L Carbon Dioxide 24 (22-30) mmol/L Anion Gap 20 (10-20) BUN 68 H (9-20) mg/dL Creatinine 3.0 H (0.8-1.5) MG/DL Est GFR ( Amer) 24 Est GFR (Non-Af Amer) 20 POC Glucose (mg/dL) 427 H* (65-110) mg/dL Random Glucose 399 H (75-110) mg/dL Calcium 7.0 L (8.6-10.4) mg/dl Phosphorus 3.9 (2.5-4.5) mg/dL Magnesium 2.6 H (1.6-2.3) mg/dL % Saturation 28 (20-55) Total Bilirubin 0.4 (0.2-1.3) mg/dL AST 31 (17-59) U/L ALT 56 (21-72) U/L Alkaline Phosphatase 83 (38-126) U/L Total Protein 5.5 L (6.3-8.3) g/dL Albumin 2.7 L (3.5-5.0) g/dL Globulin 2.8 (2.2-3.9) gm/dL Albumin/Globulin Ratio 1.0 (1.0-2.1) Hep Bs Antigen (NEGATIVE) Hep Bs Antibody (NEGATIVE) Hep B Core IgM Ab (NEGATIVE) Hepatitis C Antibody (NEGATIVE) 09/09/16 09/09/16 09/09/16 Range/Units 23:34 18:01 14:26 WBC (4.8-10.8) K/uL RBC (4.40-5.90) Mil/uL Hgb (12.0-18.0) g/dL Hct (35.0-51.0) % MCV (80.0-94.0) fL MCH (27.0-31.0) pg MCHC (33.0-37.0) g/dL RDW (11.5-14.5) % Plt Count (130-400) K/uL MPV (7.2-11.7) fL Neut % (Auto) (50.0-75.0) % Lymph % (Auto) (20.0-40.0) % [place] % (Auto) (0.0-10.0) % Eos % (Auto) (0.0-4.0) % Baso % (Auto) (0.0-2.0) % Neut # (1.8-7.0) K/uL Lymph # (1.0-4.3) K/uL [place] # (0.0-0.8) K/uL Eos # (0.0-0.7) K/uL Baso # (0.0-0.2) K/uL Neutrophils % (Manual) (50-75) % Band Neutrophils % (0-2) % Lymphocytes % (Manual) (20-40) % Monocytes % (Manual) (0-10) % Platelet Estimate (NORMAL) [place] Cells PT (9.7-12.2) SECONDS INR APTT (21-34) SECONDS Puncture Site pCO2 (35-45) mm/Hg pO2 (80-100) mm/Hg HCO3 (21-28) mmol/L ABG pH (7.35-7.45) ABG Total CO2 (22-28) mmol/L ABG O2 Saturation (95-98) % ABG Base Excess (-2.0-3.0) mmol/L ABG Hemoglobin (11.7-17.4) g/dL ABG Carboxyhemoglobin (0.5-1.5) % POC ABG HHb (Measured) (0.0-5.0) % ABG Methemoglobin (0.0-3.0) % Tejinder Test A-a O2 Difference mm/Hg Respiratory Index Hgb O2 Saturation (95.0-98.0) % Mechanical Rate FiO2 % Tidal Volume PEEP Sodium (132-148) mmol/L Potassium (3.6-5.2) mmol/L Chloride (98-107) mmol/L Carbon Dioxide (22-30) mmol/L Anion Gap (10-20) BUN (9-20) mg/dL Creatinine (0.8-1.5) MG/DL Est GFR ( Amer) Est GFR (Non-Af Amer) POC Glucose (mg/dL) 419 H* 257 H (65-110) mg/dL Random Glucose (75-110) mg/dL Calcium (8.6-10.4) mg/dl Phosphorus (2.5-4.5) mg/dL Magnesium (1.6-2.3) mg/dL % Saturation (20-55) Total Bilirubin (0.2-1.3) mg/dL AST (17-59) U/L ALT (21-72) U/L Alkaline Phosphatase (38-126) U/L Total Protein (6.3-8.3) g/dL Albumin (3.5-5.0) g/dL Globulin (2.2-3.9) gm/dL Albumin/Globulin Ratio (1.0-2.1) Hep Bs Antigen Negative (NEGATIVE) Hep Bs Antibody Negative (NEGATIVE) Hep B Core IgM Ab Negative (NEGATIVE) Hepatitis C Antibody Negative (NEGATIVE) 09/09/16 09/09/16 Range/Units 11:34 06:06 WBC (4.8-10.8) K/uL RBC (4.40-5.90) Mil/uL Hgb (12.0-18.0) g/dL Hct (35.0-51.0) % MCV (80.0-94.0) fL MCH (27.0-31.0) pg MCHC (33.0-37.0) g/dL RDW (11.5-14.5) % Plt Count (130-400) K/uL MPV (7.2-11.7) fL Neut % (Auto) (50.0-75.0) % Lymph % (Auto) (20.0-40.0) % [place] % (Auto) (0.0-10.0) % Eos % (Auto) (0.0-4.0) % Baso % (Auto) (0.0-2.0) % Neut # (1.8-7.0) K/uL Lymph # (1.0-4.3) K/uL [place] # (0.0-0.8) K/uL Eos # (0.0-0.7) K/uL Baso # (0.0-0.2) K/uL Neutrophils % (Manual) 95 H (50-75) % Band Neutrophils % 1 (0-2) % Lymphocytes % (Manual) 2 L (20-40) % Monocytes % (Manual) 2 (0-10) % Platelet Estimate Normal (NORMAL) [place] Cells Slight PT (9.7-12.2) SECONDS INR APTT (21-34) SECONDS Puncture Site pCO2 (35-45) mm/Hg pO2 (80-100) mm/Hg HCO3 (21-28) mmol/L ABG pH (7.35-7.45) ABG Total CO2 (22-28) mmol/L ABG O2 Saturation (95-98) % ABG Base Excess (-2.0-3.0) mmol/L ABG Hemoglobin (11.7-17.4) g/dL ABG Carboxyhemoglobin (0.5-1.5) % POC ABG HHb (Measured) (0.0-5.0) % ABG Methemoglobin (0.0-3.0) % Tejinder Test A-a O2 Difference mm/Hg Respiratory Index Hgb O2 Saturation (95.0-98.0) % Mechanical Rate FiO2 % Tidal Volume PEEP Sodium (132-148) mmol/L Potassium (3.6-5.2) mmol/L Chloride (98-107) mmol/L Carbon Dioxide (22-30) mmol/L Anion Gap (10-20) BUN (9-20) mg/dL Creatinine (0.8-1.5) MG/DL Est GFR ( Amer) Est GFR (Non-Af Amer) POC Glucose (mg/dL) 488 H* (65-110) mg/dL Random Glucose (75-110) mg/dL Calcium (8.6-10.4) mg/dl Phosphorus (2.5-4.5) mg/dL Magnesium (1.6-2.3) mg/dL % Saturation (20-55) Total Bilirubin (0.2-1.3) mg/dL AST (17-59) U/L ALT (21-72) U/L Alkaline Phosphatase (38-126) U/L Total Protein (6.3-8.3) g/dL Albumin (3.5-5.0) g/dL Globulin (2.2-3.9) gm/dL Albumin/Globulin Ratio (1.0-2.1) Hep Bs Antigen (NEGATIVE) Hep Bs Antibody (NEGATIVE) Hep B Core IgM Ab (NEGATIVE) Hepatitis C Antibody (NEGATIVE) Laboratory Results - last 24 hr 09/09/16 09/09/16 09/09/16 06:06 11:34 14:26 WBC RBC Hgb Hct MCV MCH MCHC RDW Plt Count MPV Neut % (Auto) Lymph % (Auto) [place] % (Auto) Eos % (Auto) Baso % (Auto) Neut # Lymph # [place] # Eos # Baso # Neutrophils % (Manual) 95 H Band Neutrophils % 1 Lymphocytes % (Manual) 2 L Monocytes % (Manual) 2 Platelet Estimate Normal [place] Cells Slight PT INR APTT Puncture Site pCO2 pO2 HCO3 ABG pH ABG Total CO2 ABG O2 Saturation ABG Base Excess ABG Hemoglobin ABG Carboxyhemoglobin POC ABG HHb (Measured) ABG Methemoglobin Tejinder Test A-a O2 Difference Respiratory Index Hgb O2 Saturation Mechanical Rate FiO2 Tidal Volume PEEP Sodium Potassium Chloride Carbon Dioxide Anion Gap BUN Creatinine Est GFR ( Amer) Est GFR (Non-Af Amer) POC Glucose (mg/dL) 488 H* Random Glucose Calcium Phosphorus Magnesium % Saturation Total Bilirubin AST ALT Alkaline Phosphatase Total Protein Albumin Globulin Albumin/Globulin Ratio Hep Bs Antigen Negative Hep Bs Antibody Negative Hep B Core IgM Ab Negative Hepatitis C Antibody Negative 09/09/16 09/09/16 09/10/16 18:01 23:34 05:28 WBC RBC Hgb Hct MCV MCH MCHC RDW Plt Count MPV Neut % (Auto) Lymph % (Auto) [place] % (Auto) Eos % (Auto) Baso % (Auto) Neut # Lymph # [place] # Eos # Baso # Neutrophils % (Manual) Band Neutrophils % Lymphocytes % (Manual) Monocytes % (Manual) Platelet Estimate [place] Cells PT INR APTT Puncture Site Rrad pCO2 34 L pO2 91 HCO3 28.0 ABG pH 7.51 H ABG Total CO2 28.1 H ABG O2 Saturation 98.9 H ABG Base Excess 4.0 H ABG Hemoglobin 9.6 L ABG Carboxyhemoglobin 1.5 POC ABG HHb (Measured) 1.1 ABG Methemoglobin 1.5 Tejinder Test Pos A-a O2 Difference 437.0 Respiratory Index 4.8 Hgb O2 Saturation 95.9 Mechanical Rate 20 FiO2 80.0 Tidal Volume 500 PEEP 8 Sodium Potassium Chloride Carbon Dioxide Anion Gap BUN Creatinine Est GFR ( Amer) Est GFR (Non-Af Amer) POC Glucose (mg/dL) 257 H 419 H* Random Glucose Calcium Phosphorus Magnesium % Saturation Total Bilirubin AST ALT Alkaline Phosphatase Total Protein Albumin Globulin Albumin/Globulin Ratio Hep Bs Antigen Hep Bs Antibody Hep B Core IgM Ab Hepatitis C Antibody 09/10/16 09/10/16 05:37 06:41 WBC 10.8 RBC 2.78 L Hgb 8.7 L Hct 26.1 L MCV 94.0 MCH 31.2 H MCHC 33.2 RDW 13.7 Plt Count 217 MPV 9.5 Neut % (Auto) 85.2 H Lymph % (Auto) 4.9 L [place] % (Auto) 9.8 Eos % (Auto) 0.0 Baso % (Auto) 0.1 Neut # 9.2 H Lymph # 0.5 L [place] # 1.1 H Eos # 0.0 Baso # 0.0 Neutrophils % (Manual) Band Neutrophils % Lymphocytes % (Manual) Monocytes % (Manual) Platelet Estimate [place] Cells PT 11.4 INR 1.0 APTT 25 D Puncture Site pCO2 pO2 HCO3 ABG pH ABG Total CO2 ABG O2 Saturation ABG Base Excess ABG Hemoglobin ABG Carboxyhemoglobin POC ABG HHb (Measured) ABG Methemoglobin Tejinder Test A-a O2 Difference Respiratory Index Hgb O2 Saturation Mechanical Rate FiO2 Tidal Volume PEEP Sodium 137 Potassium 3.7 Chloride 97 L Carbon Dioxide 24 Anion Gap 20 BUN 68 H Creatinine 3.0 H Est GFR ( Amer) 24 Est GFR (Non-Af Amer) 20 POC Glucose (mg/dL) 427 H* Random Glucose 399 H Calcium 7.0 L Phosphorus 3.9 Magnesium 2.6 H % Saturation 28 Total Bilirubin 0.4 AST 31 ALT 56 Alkaline Phosphatase 83 Total Protein 5.5 L Albumin 2.7 L Globulin 2.8 Albumin/Globulin Ratio 1.0 Hep Bs Antigen Hep Bs Antibody Hep B Core IgM Ab Hepatitis C Antibody Fingerstick Blood Sugar Results: 419 Critical Care Progress Note - Nutrition Nutrition: Nutrition Category Date Time Status Renal Diet [DIET] Diets 09/04/16 Lunch Active Assessment/Plan - Assessment and Plan (Free Text) Assessment: 81 year old with DM, HTN, CKD, meningeoma, admitted with shortness of breath requiring BiPAP. Pulmonary edema, ARDS, requiring intubation. Elevated troponins , diagnosed with NSTEMI. Plan: Neuro: Intubated Pulm: Patient intubated due to severe ARDS ABG: still shows respiratory alkalosis, Current vent settings: PRVC: FiO2 80%, Tvolume 4500, resp rate 16, peep 10 Duonebs Q6H, Imdur, Solumedrol was DC Patient had PICC line placed for heparin drip Zosyn was DC due to low procalcitonin 09/10 CXR: Much improved, less congested CV: Plan for Cardiac Catherization with Dr. Garcia- 09/11/16 Elevated troponins: NSTEMI; PICC line placed INR: 1.0 ECHO: Left ventricle mildly dilated. Anteroapical and inferoapical hypokinesis. Grade 3 restrictive diastolic dysfunction. Moderate TR, Pulm HTN, MR and mild AR. No pericardial effusion. HLD: Crestor 10mg PO QHS CAD: ASA Renal: LUIS EDUARDO on CKD Baseline creatine: 3.0 Procrit 10,000 units TTS Wade catheter placed Dr. Cain consulted - underwent hemodialysis yesterday, currently undergoing dialysis Day 07/04. Endo: DM: increased to Levemir 30 units QHS, ISS -high Hypothyroidism: 50 mcg PO daily GI: Diabeticsource tube feeding at goal rate of 50cc/hr Protonix 40mg PO daily ID: Afebrile, no white count Monitor for downtrending since steroids was stopped Lactate level 1.6 Blood cultures negative x [address] Price consulted - help appreciated Procalcitonin - low, zosyn was DC DVT Prophylaxis: Heparin 5000 Q12H Medical records retrieved from [facility]: Patient had Carotid dopplers on 05/18/2016 which should Right ICA stenosis of 70-79%. MRA of carotids showed: 50-69% narrowing takeoff of right ICA with a less than 50% narrowing more distally. ECHO done on 08/16/16 showed LVEF: 60-65%. Grade 1 diastolic dysfunction present. Left atrium borderline dilated. Mild AR, TR, moderate AR, MR. Right ventricular systolic pressure is estimated at 46mmHG. Jose (SON) [phone] Geo Murray DO, PGY-1 <Tru Eugene - Last Filed: 09/10/16 12:10> CCU Objective - Vital Signs / Intake & Output Vital Signs (Last 4 hours): Vital Signs Temp Pulse Pulse Resp BP BP Pulse Ox 09/10/16 11:00 76 80 16 120/59 L 121/58 L 100 09/10/16 10:45 80 122/56 L 100 09/10/16 10:30 81 16 122/61 100 09/10/16 10:15 80 17 126/61 100 09/10/16 10:00 80 79 17 122/56 L 127/58 L 99 09/10/16 09:50 967.6 F H 16 125/88 99 09/10/16 09:45 97.6 F 83 16 129/60 09/10/16 09:00 80 16 129/60 100 Intake and Output (Last 8hrs): Intake & Output 09/09/16 09/10/16 09/10/16 22:59 06:59 14:59 Intake Total 529.9 388.4 274.3 Output Total 220 235 Balance 309.9 388.4 39.3 Weight 165 lb 163 lb Intake: IV 20 Intake, IV Amount 164.9 138.4 44.3 Right Proximal Port PICC 121.9 138.4 44.3 Right PICC 43.0 Tube Feeding 345 250 230 Output: Urine 220 235 Urethral (Garza) 220 235 - Medications Active Medications: Active Medications Generic Name Dose Route Start Last Admin Trade Name Freq PRN Reason Stop Dose Admin Albuterol/Ipratropium 3 ml 09/04/16 20:00 09/10/16 07:35 Duoneb 3 Mg/0.5 Mg (3 Ml) Ud INH 3 ml RQ6 CHRISTINA Administration Aspirin 81 mg 09/10/16 10:00 09/10/16 10:57 Aspirin Chewable PO 81 mg DAILY CHRISTINA Administration Epoetin Dominik 10,000 unit 09/10/16 11:15 09/10/16 11:16 Procrit IV 10,000 unit TTS CHRISTINA Administration Heparin Sodium (Porcine) 5,000 units 09/10/16 10:00 09/10/16 10:56 Heparin SC 5,000 units Q12 CHRISTINA Administration Propofol 100 mls @ 2.16 mls/hr 09/07/16 14:20 09/10/16 09:45 Diprivan IV 23.15 mcg/kg/min .Q24H PRN Titration TITRATE PER MD ORDER Protocol 5 MCG/KG/MIN Insulin Aspart 0 unit 09/08/16 18:00 09/10/16 06:05 Novolog SC 12 unit Q6 CHRISTINA Administration Protocol Insulin Detemir 30 unit 09/10/16 22:00 Levemir SC HS CHRISTINA Levothyroxine Sodium 50 mcg 09/05/16 06:30 09/10/16 06:00 Synthroid PO 50 mcg DAILY@0630 CHRISTINA Administration Lorazepam 2 mg 09/09/16 19:18 Ativan IVP Q6H PRN Anxiety Pantoprazole Sodium 40 mg 09/08/16 10:15 09/10/16 10:59 Protonix Susp PO 40 mg DAILY CHRISTINA Administration Rosuvastatin Calcium 10 mg 09/04/16 21:15 09/09/16 21:50 Crestor PO 10 mg HS CHRISTINA Administration - Patient Studies Lab Studies: Microbiology Studies 09/07/16 Unknown MRSA Culture (Admit) - Final Naris MRSA NOT DETECTED Lab Studies 09/10/16 09/10/16 09/10/16 Range/Units 06:41 05:37 05:28 WBC 10.8 (4.8-10.8) K/uL RBC 2.78 L (4.40-5.90) Mil/uL Hgb 8.7 L (12.0-18.0) g/dL Hct 26.1 L (35.0-51.0) % MCV 94.0 (80.0-94.0) fL MCH 31.2 H (27.0-31.0) pg MCHC 33.2 (33.0-37.0) g/dL RDW 13.7 (11.5-14.5) % Plt Count 217 (130-400) K/uL MPV 9.5 (7.2-11.7) fL Neut % (Auto) 85.2 H (50.0-75.0) % Lymph % (Auto) 4.9 L (20.0-40.0) % [place] % (Auto) 9.8 (0.0-10.0) % Eos % (Auto) 0.0 (0.0-4.0) % Baso % (Auto) 0.1 (0.0-2.0) % Neut # 9.2 H (1.8-7.0) K/uL Lymph # 0.5 L (1.0-4.3) K/uL [place] # 1.1 H (0.0-0.8) K/uL Eos # 0.0 (0.0-0.7) K/uL Baso # 0.0 (0.0-0.2) K/uL Neutrophils % (Manual) 83 H (50-75) % Band Neutrophils % 1 (0-2) % Lymphocytes % (Manual) 4 L (20-40) % Monocytes % (Manual) 12 H (0-10) % Platelet Estimate Normal (NORMAL) Hypochromasia (manual) Slight PT 11.4 (9.7-12.2) SECONDS INR 1.0 APTT 25 D (21-34) SECONDS Puncture Site Rrad pCO2 34 L (35-45) mm/Hg pO2 91 (80-100) mm/Hg HCO3 28.0 (21-28) mmol/L ABG pH 7.51 H (7.35-7.45) ABG Total CO2 28.1 H (22-28) mmol/L ABG O2 Saturation 98.9 H (95-98) % ABG Base Excess 4.0 H (-2.0-3.0) mmol/L ABG Hemoglobin 9.6 L (11.7-17.4) g/dL ABG Carboxyhemoglobin 1.5 (0.5-1.5) % POC ABG HHb (Measured) 1.1 (0.0-5.0) % ABG Methemoglobin 1.5 (0.0-3.0) % Tejinder Test Pos A-a O2 Difference 437.0 mm/Hg Respiratory Index 4.8 Hgb O2 Saturation 95.9 (95.0-98.0) % Mechanical Rate 20 FiO2 80.0 % Tidal Volume 500 PEEP 8 Sodium 137 (132-148) mmol/L Potassium 3.7 (3.6-5.2) mmol/L Chloride 97 L (98-107) mmol/L Carbon Dioxide 24 (22-30) mmol/L Anion Gap 20 (10-20) BUN 68 H (9-20) mg/dL Creatinine 3.0 H (0.8-1.5) MG/DL Est GFR ( Amer) 24 Est GFR (Non-Af Amer) 20 POC Glucose (mg/dL) 427 H* (65-110) mg/dL Random Glucose 399 H (75-110) mg/dL Calcium 7.0 L (8.6-10.4) mg/dl Phosphorus 3.9 (2.5-4.5) mg/dL Magnesium 2.6 H (1.6-2.3) mg/dL % Saturation 28 (20-55) Ferritin 234.0 ng/mL Total Bilirubin 0.4 (0.2-1.3) mg/dL AST 31 (17-59) U/L ALT 56 (21-72) U/L Alkaline Phosphatase 83 (38-126) U/L Total Protein 5.5 L (6.3-8.3) g/dL Albumin 2.7 L (3.5-5.0) g/dL Globulin 2.8 (2.2-3.9) gm/dL Albumin/Globulin Ratio 1.0 (1.0-2.1) Hep Bs Antigen (NEGATIVE) Hep Bs Antibody (NEGATIVE) Hep B Core IgM Ab (NEGATIVE) Hepatitis C Antibody (NEGATIVE) 09/09/16 09/09/16 09/09/16 Range/Units 23:34 18:01 14:26 WBC (4.8-10.8) K/uL RBC (4.40-5.90) Mil/uL Hgb (12.0-18.0) g/dL Hct (35.0-51.0) % MCV (80.0-94.0) fL MCH (27.0-31.0) pg MCHC (33.0-37.0) g/dL RDW (11.5-14.5) % Plt Count (130-400) K/uL MPV (7.2-11.7) fL Neut % (Auto) (50.0-75.0) % Lymph % (Auto) (20.0-40.0) % [place] % (Auto) (0.0-10.0) % Eos % (Auto) (0.0-4.0) % Baso % (Auto) (0.0-2.0) % Neut # (1.8-7.0) K/uL Lymph # (1.0-4.3) K/uL [place] # (0.0-0.8) K/uL Eos # (0.0-0.7) K/uL Baso # (0.0-0.2) K/uL Neutrophils % (Manual) (50-75) % Band Neutrophils % (0-2) % Lymphocytes % (Manual) (20-40) % Monocytes % (Manual) (0-10) % Platelet Estimate (NORMAL) Hypochromasia (manual) PT (9.7-12.2) SECONDS INR APTT (21-34) SECONDS Puncture Site pCO2 (35-45) mm/Hg pO2 (80-100) mm/Hg HCO3 (21-28) mmol/L ABG pH (7.35-7.45) ABG Total CO2 (22-28) mmol/L ABG O2 Saturation (95-98) % ABG Base Excess (-2.0-3.0) mmol/L ABG Hemoglobin (11.7-17.4) g/dL ABG Carboxyhemoglobin (0.5-1.5) % POC ABG HHb (Measured) (0.0-5.0) % ABG Methemoglobin (0.0-3.0) % Tejinder Test A-a O2 Difference mm/Hg Respiratory Index Hgb O2 Saturation (95.0-98.0) % Mechanical Rate FiO2 % Tidal Volume PEEP Sodium (132-148) mmol/L Potassium (3.6-5.2) mmol/L Chloride (98-107) mmol/L Carbon Dioxide (22-30) mmol/L Anion Gap (10-20) BUN (9-20) mg/dL Creatinine (0.8-1.5) MG/DL Est GFR ( Amer) Est GFR (Non-Af Amer) POC Glucose (mg/dL) 419 H* 257 H (65-110) mg/dL Random Glucose (75-110) mg/dL Calcium (8.6-10.4) mg/dl Phosphorus (2.5-4.5) mg/dL Magnesium (1.6-2.3) mg/dL % Saturation (20-55) Ferritin ng/mL Total Bilirubin (0.2-1.3) mg/dL AST (17-59) U/L ALT (21-72) U/L Alkaline Phosphatase (38-126) U/L Total Protein (6.3-8.3) g/dL Albumin (3.5-5.0) g/dL Globulin (2.2-3.9) gm/dL Albumin/Globulin Ratio (1.0-2.1) Hep Bs Antigen Negative (NEGATIVE) Hep Bs Antibody Negative (NEGATIVE) Hep B Core IgM Ab Negative (NEGATIVE) Hepatitis C Antibody Negative (NEGATIVE) Laboratory Results - last 24 hr 09/09/16 09/09/16 09/09/16 14:26 18:01 23:34 WBC RBC Hgb Hct MCV MCH MCHC RDW Plt Count MPV Neut % (Auto) Lymph % (Auto) [place] % (Auto) Eos % (Auto) Baso % (Auto) Neut # Lymph # [place] # Eos # Baso # Neutrophils % (Manual) Band Neutrophils % Lymphocytes % (Manual) Monocytes % (Manual) Platelet Estimate Hypochromasia (manual) PT INR APTT Puncture Site pCO2 pO2 HCO3 ABG pH ABG Total CO2 ABG O2 Saturation ABG Base Excess ABG Hemoglobin ABG Carboxyhemoglobin POC ABG HHb (Measured) ABG Methemoglobin Tejinder Test A-a O2 Difference Respiratory Index Hgb O2 Saturation Mechanical Rate FiO2 Tidal Volume PEEP Sodium Potassium Chloride Carbon Dioxide Anion Gap BUN Creatinine Est GFR ( Amer) Est GFR (Non-Af Amer) POC Glucose (mg/dL) 257 H 419 H* Random Glucose Calcium Phosphorus Magnesium % Saturation Ferritin Total Bilirubin AST ALT Alkaline Phosphatase Total Protein Albumin Globulin Albumin/Globulin Ratio Hep Bs Antigen Negative Hep Bs Antibody Negative Hep B Core IgM Ab Negative Hepatitis C Antibody Negative 09/10/16 09/10/16 09/10/16 05:28 05:37 06:41 WBC 10.8 RBC 2.78 L Hgb 8.7 L Hct 26.1 L MCV 94.0 MCH 31.2 H MCHC 33.2 RDW 13.7 Plt Count 217 MPV 9.5 Neut % (Auto) 85.2 H Lymph % (Auto) 4.9 L [place] % (Auto) 9.8 Eos % (Auto) 0.0 Baso % (Auto) 0.1 Neut # 9.2 H Lymph # 0.5 L [place] # 1.1 H Eos # 0.0 Baso # 0.0 Neutrophils % (Manual) 83 H Band Neutrophils % 1 Lymphocytes % (Manual) 4 L Monocytes % (Manual) 12 H Platelet Estimate Normal Hypochromasia (manual) Slight PT 11.4 INR 1.0 APTT 25 D Puncture Site Rrad pCO2 34 L pO2 91 HCO3 28.0 ABG pH 7.51 H ABG Total CO2 28.1 H ABG O2 Saturation 98.9 H ABG Base Excess 4.0 H ABG Hemoglobin 9.6 L ABG Carboxyhemoglobin 1.5 POC ABG HHb (Measured) 1.1 ABG Methemoglobin 1.5 Tejinder Test Pos A-a O2 Difference 437.0 Respiratory Index 4.8 Hgb O2 Saturation 95.9 Mechanical Rate 20 FiO2 80.0 Tidal Volume 500 PEEP 8 Sodium 137 Potassium 3.7 Chloride 97 L Carbon Dioxide 24 Anion Gap 20 BUN 68 H Creatinine 3.0 H Est GFR ( Amer) 24 Est GFR (Non-Af Amer) 20 POC Glucose (mg/dL) 427 H* Random Glucose 399 H Calcium 7.0 L Phosphorus 3.9 Magnesium 2.6 H % Saturation 28 Ferritin 234.0 Total Bilirubin 0.4 AST 31 ALT 56 Alkaline Phosphatase 83 Total Protein 5.5 L Albumin 2.7 L Globulin 2.8 Albumin/Globulin Ratio 1.0 Hep Bs Antigen Hep Bs Antibody Hep B Core IgM Ab Hepatitis C Antibody Critical Care Progress Note - Nutrition Nutrition: Nutrition Category Date Time Status Renal Diet [DIET] Diets 09/04/16 Lunch Active Attending/Attestation - Attestation I have personally seen and examined this patient.: Yes I have fully participated in the care of the patient.: Yes I have reviewed all pertinent clinical information: Yes Notes (Text): 09/10/16 12:06 I have seen and examined the patient. Medical records, lab studies, and imaging were reviewed by me and a management plan was formulated on multidisciplinary rounds with resident Dr. Guardado. I agree with their above documented assessment and plan. Patient is in severe ARDS, which carries an overall high mortality. CXR improving, with possible benefit from volume removal using daily dialysis. Daily sedation vacation. Cardiac cath tomorrow. Patient is hemodynamically stable, family has agreed to and wants cath, patient clinically stable for cath. 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 Critical Care Time 35 minutes. Multi-disciplinary rounds were performed with house staff, nursing, speech therapy, respiratory therapy, pharmacy and nutrition with integrated input from the primary team/attending and other consulting services. The documented time is cumulative and includes review of patient data/exams/labs/chart review and examination of the patient on rounds and throughout the day; time is exclusive of any procedures or teaching time. 09/10/16 12:06
[2016-09-10 08:00] LABS: NEUTROPHIL 83 % (50-75); TOTAL CELLS COUNTED 100
[2016-09-10] MEDS ORDERED: Epoetin Alfa 10,000 unit/ml Dialysis IV SCH (10:00)
[2016-09-10] MEDS ORDERED: Epoetin Alfa 10,000 unit/ml Dialysis SC SCH (10:00)
--- NOTE | 2016-09-10 10:27 | CP.PCM.PN ---
Subjective - Date & Time of Evaluation Date of Evaluation: 09/10/16 Time of Evaluation: 07:00 - Subjective Subjective: patient seen and examined in the intensive care unit. Remains intubated on ventilatory support still requiring high FiO2 80% with PEEP of 10 sedated on diprivan and seen during hemodialysis tolerating feeding Afebrile Objective - Vital Signs/Intake and Output Vital Signs (last 24 hours): Temp Pulse Resp BP Pulse Ox 97.6 F 80 16 129/60 100 09/10/16 08:00 09/10/16 09:00 09/10/16 09:00 09/10/16 09:00 09/10/16 09:00 Intake and Output: 09/10/16 09/10/16 06:59 18:59 Intake Total 627.9 157.3 Output Total 175 Balance 627.9 -17.7 - Medications Medications: Current Medications Albuterol/Ipratropium (Duoneb 3 Mg/0.5 Mg (3 Ml) Ud) 3 ml INH RQ6 [facility] Last Admin: 09/10/16 07:35 Dose: 3 ml Aspirin (Aspirin Chewable) 81 mg PO DAILY [facility] Epoetin Dominik (Procrit) 10,000 unit IV TTS [facility] Heparin Sodium (Porcine) (Heparin) 5,000 units SC Q12 [facility] Propofol (Diprivan) 100 mls @ 2.16 mls/hr IV .Q24H PRN; Protocol; 5 MCG/KG/MIN PRN Reason: TITRATE PER MD ORDER Last Titration: 09/10/16 09:45 Dose: 23.15 mcg/kg/min Insulin Aspart (Novolog) 0 unit SC Q6 [facility] PRN Reason: Protocol Last Admin: 09/10/16 06:05 Dose: 12 unit Insulin Detemir (Levemir) 30 unit SC HS [facility] Levothyroxine Sodium (Synthroid) 50 mcg PO DAILY@0630 [facility] Last Admin: 09/10/16 06:00 Dose: 50 mcg Lorazepam (Ativan) 2 mg IVP Q6H PRN PRN Reason: Anxiety Pantoprazole Sodium (Protonix Susp) 40 mg PO DAILY [facility] Last Admin: 09/09/16 09:31 Dose: 40 mg Rosuvastatin Calcium (Crestor) 10 mg PO HS [facility] Last Admin: 09/09/16 21:50 Dose: 10 mg - Labs Labs: 09/10/16 06:41 09/10/16 06:41 PT 11.4 SECONDS (9.7-12.2) 09/10/16 06:41 INR 1.0 09/10/16 06:41 APTT 25 SECONDS (21-34) D 09/10/16 06:41 - Head Exam Head Exam: ATRAUMATIC, NORMOCEPHALIC - Eye Exam Eye Exam: Normal appearance - ENT Exam ENT Exam: Mucous Membranes Moist - Neck Exam Neck Exam: Normal Inspection - Respiratory Exam Respiratory Exam: Rales - Cardiovascular Exam Cardiovascular Exam: REGULAR RHYTHM - GI/Abdominal Exam GI & Abdominal Exam: Soft, Normal Bowel Sounds - Extremities Exam Extremities Exam: Normal Inspection - Neurological Exam Neurological Exam: Altered Assessment and Plan (1) Respiratory failure with hypoxia Assessment & Plan: continue hemodialysis and reduce FiO2 as tolerated Consider to discontinue antibiotics Sedation vacation Increase feeding as tolerated Possible cardiac cath tomorrow Status: Acute (2) NSTEMI (non-ST elevation myocardial infarction) Status: Acute (3) Acute kidney injury superimposed on CKD Status: Chronic
--- NOTE | 2016-09-10 10:38 | CP.PCM.PN ---
Subjective - Date & Time of Evaluation Date of Evaluation: 09/10/16 Time of Evaluation: 10:36 - Subjective Subjective: s/p dialysis 09/09- UF 1000ml CXR improved- less congested For 2nd dialysis now- will increase UF attempts to 2000ml as BP acceptable Remains on vent- more alert ICU team to decrease sedation- discussed case Discussed with son- will try to dialyze daily as needed to remove fluids Objective - Vital Signs/Intake and Output Vital Signs (last 24 hours): Temp Pulse Resp BP Pulse Ox 97.6 F 80 16 129/60 100 09/10/16 08:00 09/10/16 09:00 09/10/16 09:00 09/10/16 09:00 09/10/16 09:00 Intake and Output: 09/10/16 09/10/16 06:59 18:59 Intake Total 627.9 157.3 Output Total 175 Balance 627.9 -17.7 - Medications Medications: Current Medications Albuterol/Ipratropium (Duoneb 3 Mg/0.5 Mg (3 Ml) Ud) 3 ml INH RQ6 [facility] Last Admin: 09/10/16 07:35 Dose: 3 ml Aspirin (Aspirin Chewable) 81 mg PO DAILY [facility] Epoetin Dominik (Procrit) 10,000 unit IV TTS [facility] Heparin Sodium (Porcine) (Heparin) 5,000 units SC Q12 [facility] Propofol (Diprivan) 100 mls @ 2.16 mls/hr IV .Q24H PRN; Protocol; 5 MCG/KG/MIN PRN Reason: TITRATE PER MD ORDER Last Titration: 09/10/16 09:45 Dose: 23.15 mcg/kg/min Insulin Aspart (Novolog) 0 unit SC Q6 [facility] PRN Reason: Protocol Last Admin: 09/10/16 06:05 Dose: 12 unit Insulin Detemir (Levemir) 30 unit SC HS [facility] Levothyroxine Sodium (Synthroid) 50 mcg PO DAILY@0630 [facility] Last Admin: 09/10/16 06:00 Dose: 50 mcg Lorazepam (Ativan) 2 mg IVP Q6H PRN PRN Reason: Anxiety Pantoprazole Sodium (Protonix Susp) 40 mg PO DAILY [facility] Last Admin: 09/09/16 09:31 Dose: 40 mg Rosuvastatin Calcium (Crestor) 10 mg PO HS [facility] Last Admin: 09/09/16 21:50 Dose: 10 mg - Labs Labs: 09/10/16 06:41 09/10/16 06:41 PT 11.4 SECONDS (9.7-12.2) 09/10/16 06:41 INR 1.0 09/10/16 06:41 APTT 25 SECONDS (21-34) D 09/10/16 06:41 - Constitutional Appears: Toxic, In Acute Distress, Chronically Ill - Head Exam Head Exam: ATRAUMATIC, NORMAL INSPECTION - Eye Exam Eye Exam: EOMI, Normal appearance - Neck Exam Neck Exam: Normal Inspection. absent: Tenderness - Respiratory Exam Respiratory Exam: Rales, Respiratory Distress - Cardiovascular Exam Cardiovascular Exam: REGULAR RHYTHM, +S1 - GI/Abdominal Exam GI & Abdominal Exam: Soft. absent: Tenderness - Extremities Exam Extremities Exam: Normal Inspection. absent: Pedal Edema, Tenderness - Neurological Exam Neurological Exam: Altered, CN II-XII Intact - Skin Skin Exam: Dry, Warm Assessment and Plan (1) NSTEMI (non-ST elevation myocardial infarction) Status: Acute (2) Pulmonary edema Status: Acute (3) Acute kidney injury superimposed on CKD Status: Chronic (4) Cardiorenal syndrome with renal failure Status: Acute - Assessment and Plan (Free Text) Plan: Continue dialysis daily- increase UF attempts
[2016-09-10] MEDS: Pantoprazole 40 mg Susp UD PO SCH (10:59)
[2016-09-10] MEDS: Epoetin Alfa 10,000 unit/ml Dialysis IV SCH (11:16)
--- NOTE | 2016-09-10 11:37 | RAD ---
HISTORY: ards COMPARISON: 09/09/2016 FINDINGS: LUNGS: Lines and tubes in stable position. Diffuse consolidative bilateral airspace opacities throughout both lungs suggestive for edema and or infiltrate. Right midlung atelectasis. PLEURA: As above. CARDIOVASCULAR: Calcification at the aortic knob. OSSEOUS STRUCTURES: No significant abnormalities. VISUALIZED UPPER ABDOMEN: Normal. OTHER FINDINGS: None. IMPRESSION: Lines and tubes in stable position. Diffuse consolidative bilateral airspace opacities throughout both lungs suggestive for edema and or infiltrate. Right midlung atelectasis.
--- NOTE | 2016-09-10 17:25 | CP.PCM.PN ---
Subjective - Date & Time of Evaluation Date of Evaluation: 09/10/16 Time of Evaluation: 07:00 - Subjective Subjective: CXR improved- less congested For 2nd dialysis now- Remains on vent- more alert Objective - Vital Signs/Intake and Output Vital Signs (last 24 hours): Temp Pulse Resp BP Pulse Ox 97.3 F L 77 16 126/60 100 09/10/16 16:00 09/10/16 16:00 09/10/16 16:00 09/10/16 16:00 09/10/16 16:00 Intake and Output: 09/10/16 09/10/16 06:59 18:59 Intake Total 627.9 624.3 Output Total 2235 Balance 627.9 -1610.7 - Medications Medications: Current Medications Albuterol/Ipratropium (Duoneb 3 Mg/0.5 Mg (3 Ml) Ud) 3 ml INH RQ6 [facility] Last Admin: 09/10/16 13:17 Dose: 3 ml Aspirin (Aspirin Chewable) 81 mg PO DAILY [facility] Last Admin: 09/10/16 10:57 Dose: 81 mg Epoetin Dominik (Procrit) 10,000 unit IV TTS [facility] Last Admin: 09/10/16 11:16 Dose: 10,000 unit Heparin Sodium (Porcine) (Heparin) 5,000 units SC Q12 [facility] Last Admin: 09/10/16 10:56 Dose: 5,000 units Propofol (Diprivan) 100 mls @ 2.16 mls/hr IV .Q24H PRN; Protocol; 5 MCG/KG/MIN PRN Reason: TITRATE PER MD ORDER Last Titration: 09/10/16 16:00 Dose: 27.78 mcg/kg/min Insulin Aspart (Novolog) 0 unit SC Q6 [facility] PRN Reason: Protocol Last Admin: 09/10/16 12:20 Dose: 2 unit Insulin Detemir (Levemir) 30 unit SC HS [facility] Levothyroxine Sodium (Synthroid) 50 mcg PO DAILY@0630 [facility] Last Admin: 09/10/16 06:00 Dose: 50 mcg Lorazepam (Ativan) 2 mg IVP Q6H PRN PRN Reason: Anxiety Pantoprazole Sodium (Protonix Susp) 40 mg PO DAILY [facility] Last Admin: 09/10/16 10:59 Dose: 40 mg Rosuvastatin Calcium (Crestor) 10 mg PO HS [facility] Last Admin: 09/09/16 21:50 Dose: 10 mg - Labs Labs: 09/10/16 06:41 09/10/16 06:41 PT 11.4 SECONDS (9.7-12.2) 09/10/16 06:41 INR 1.0 09/10/16 06:41 APTT 25 SECONDS (21-34) D 09/10/16 06:41 - Constitutional Appears: Chronically Ill - Head Exam Head Exam: NORMOCEPHALIC - Eye Exam Eye Exam: PERRL. absent: Scleral icterus - ENT Exam ENT Exam: Mucous Membranes Dry - Neck Exam Neck Exam: absent: Lymphadenopathy - Respiratory Exam Respiratory Exam: Decreased Breath Sounds, Rales, Rhonchi - Cardiovascular Exam Cardiovascular Exam: REGULAR RHYTHM, +S1, +S2 - GI/Abdominal Exam GI & Abdominal Exam: Distended, Soft. absent: Tenderness - Rectal Exam Rectal Exam: Deferred - Exam Exam: NORMAL INSPECTION - Extremities Exam Extremities Exam: absent: Calf Tenderness, Pedal Edema - Back Exam Back Exam: absent: CVA tenderness (L), CVA tenderness (R) - Neurological Exam Neurological Exam: Altered - Psychiatric Exam Psychiatric exam: Depressed - Skin Skin Exam: Dry Assessment and Plan (1) Cardiorenal syndrome with renal failure Status: Acute (2) NSTEMI (non-ST elevation myocardial infarction) Status: Acute (3) Pulmonary edema Status: Acute (4) Respiratory failure with hypoxia Status: Acute (5) DVT prophylaxis Status: Acute (6) Renal failure Status: Acute (7) Syncope Status: Acute (8) Acute kidney injury superimposed on CKD Status: Chronic - Assessment and Plan (Free Text) Assessment: cont rx as per Dr Castro
--- NOTE | 2016-09-10 18:52 | CP.PCM.PN ---
Subjective - Date & Time of Evaluation Date of Evaluation: 09/10/16 Time of Evaluation: 18:30 - Subjective Subjective: afebrile CXR improving-less congested dialysis started rx as ordered Objective - Vital Signs/Intake and Output Vital Signs (last 24 hours): Temp Pulse Resp BP Pulse Ox 97.3 F L 83 16 131/68 100 09/10/16 16:00 09/10/16 18:00 09/10/16 18:00 09/10/16 18:00 09/10/16 18:00 Intake and Output: 09/10/16 09/10/16 06:59 18:59 Intake Total 627.9 744.3 Output Total 2425 Balance 627.9 -1680.7 - Medications Medications: Current Medications Albuterol/Ipratropium (Duoneb 3 Mg/0.5 Mg (3 Ml) Ud) 3 ml INH RQ6 [facility] Last Admin: 09/10/16 13:17 Dose: 3 ml Aspirin (Aspirin Chewable) 81 mg PO DAILY [facility] Last Admin: 09/10/16 10:57 Dose: 81 mg Epoetin Dominik (Procrit) 10,000 unit IV TTS [facility] Last Admin: 09/10/16 11:16 Dose: 10,000 unit Heparin Sodium (Porcine) (Heparin) 5,000 units SC Q12 [facility] Last Admin: 09/10/16 10:56 Dose: 5,000 units Propofol (Diprivan) 100 mls @ 2.16 mls/hr IV .Q24H PRN; Protocol; 5 MCG/KG/MIN PRN Reason: TITRATE PER MD ORDER Last Admin: 09/10/16 18:20 Dose: 14 mls/hr Insulin Aspart (Novolog) 0 unit SC Q6 [facility] PRN Reason: Protocol Last Admin: 09/10/16 18:18 Dose: 8 unit Insulin Detemir (Levemir) 30 unit SC HS [facility] Levothyroxine Sodium (Synthroid) 50 mcg PO DAILY@0630 [facility] Last Admin: 09/10/16 06:00 Dose: 50 mcg Lorazepam (Ativan) 2 mg IVP Q6H PRN PRN Reason: Anxiety Pantoprazole Sodium (Protonix Susp) 40 mg PO DAILY [facility] Last Admin: 09/10/16 10:59 Dose: 40 mg Rosuvastatin Calcium (Crestor) 10 mg PO HS [facility] Last Admin: 09/09/16 21:50 Dose: 10 mg - Labs Labs: 09/10/16 06:41 09/10/16 06:41 PT 11.4 SECONDS (9.7-12.2) 09/10/16 06:41 INR 1.0 09/10/16 06:41 APTT 25 SECONDS (21-34) D 09/10/16 06:41 Assessment and Plan - Assessment and Plan (Free Text) Plan: Dr. Matthew deshpande Continue Mx as ordered f/u CXR
--- NOTE | 2016-09-10 21:44 | CP.PCM.PN ---
Subjective - Date & Time of Evaluation Date of Evaluation: 09/10/16 Time of Evaluation: 17:10 - Subjective Subjective: patient seen and examined in the intensive care unit. Remains intubated on ventilatory support still requiring high FiO2 80% with PEEP of 10 sedated on diprivan and seen during hemodialysis tolerating feeding Afebrile Objective - Vital Signs/Intake and Output Vital Signs (last 24 hours): Temp Pulse Resp BP Pulse Ox 97.6 F 80 16 129/60 100 09/10/16 08:00 09/10/16 09:00 09/10/16 09:00 09/10/16 09:00 09/10/16 09:00 Intake and Output: 09/10/16 09/10/16 06:59 18:59 Intake Total 627.9 157.3 Output Total 175 Balance 627.9 -17.7 - Medications Medications: Current Medications Albuterol/Ipratropium (Duoneb 3 Mg/0.5 Mg (3 Ml) Ud) 3 ml INH RQ6 [facility] Last Admin: 09/10/16 07:35 Dose: 3 ml Aspirin (Aspirin Chewable) 81 mg PO DAILY [facility] Epoetin Dominik (Procrit) 10,000 unit IV TTS [facility] Heparin Sodium (Porcine) (Heparin) 5,000 units SC Q12 [facility] Propofol (Diprivan) 100 mls @ 2.16 mls/hr IV .Q24H PRN; Protocol; 5 MCG/KG/MIN PRN Reason: TITRATE PER MD ORDER Last Titration: 09/10/16 09:45 Dose: 23.15 mcg/kg/min Insulin Aspart (Novolog) 0 unit SC Q6 [facility] PRN Reason: Protocol Last Admin: 09/10/16 06:05 Dose: 12 unit Insulin Detemir (Levemir) 30 unit SC HS [facility] Levothyroxine Sodium (Synthroid) 50 mcg PO DAILY@0630 [facility] Last Admin: 09/10/16 06:00 Dose: 50 mcg Lorazepam (Ativan) 2 mg IVP Q6H PRN PRN Reason: Anxiety Pantoprazole Sodium (Protonix Susp) 40 mg PO DAILY [facility] Last Admin: 09/09/16 09:31 Dose: 40 mg Rosuvastatin Calcium (Crestor) 10 mg PO HS [facility] Last Admin: 09/09/16 21:50 Dose: 10 mg - Labs Labs: 09/10/16 06:41 09/10/16 06:41 PT 11.4 SECONDS (9.7-12.2) 09/10/16 06:41 INR 1.0 09/10/16 06:41 APTT 25 SECONDS (21-34) D 09/10/16 06:41 - Head Exam Head Exam: ATRAUMATIC, NORMOCEPHALIC - Eye Exam Eye Exam: Normal appearance - ENT Exam ENT Exam: Mucous Membranes Moist - Neck Exam Neck Exam: Normal Inspection - Respiratory Exam Respiratory Exam: Rales - Cardiovascular Exam Cardiovascular Exam: REGULAR RHYTHM - GI/Abdominal Exam GI & Abdominal Exam: Soft, Normal Bowel Sounds - Extremities Exam Extremities Exam: Normal Inspection - Neurological Exam Neurological Exam: Altered Objective - Vital Signs/Intake and Output Vital Signs (last 24 hours): Temp Pulse Resp BP Pulse Ox 97.3 F L 81 16 136/69 100 09/10/16 16:00 09/10/16 19:00 09/10/16 19:00 09/10/16 19:00 09/10/16 19:00 Intake and Output: 09/10/16 09/11/16 18:59 06:59 Intake Total 748.3 78 Output Total 2375 30 Balance -1626.7 48 - Medications Medications: Current Medications Albuterol/Ipratropium (Duoneb 3 Mg/0.5 Mg (3 Ml) Ud) 3 ml INH RQ6 [facility] Last Admin: 09/10/16 20:30 Dose: 3 ml Aspirin (Aspirin Chewable) 81 mg PO DAILY [facility] Last Admin: 09/10/16 10:57 Dose: 81 mg Epoetin Dominik (Procrit) 10,000 unit IV TTS [facility] Last Admin: 09/10/16 11:16 Dose: 10,000 unit Heparin Sodium (Porcine) (Heparin) 5,000 units SC Q12 [facility] Last Admin: 09/10/16 10:56 Dose: 5,000 units Propofol (Diprivan) 100 mls @ 2.16 mls/hr IV .Q24H PRN; Protocol; 5 MCG/KG/MIN PRN Reason: TITRATE PER MD ORDER Last Admin: 09/10/16 18:20 Dose: 14 mls/hr Insulin Aspart (Novolog) 0 unit SC Q6 [facility] PRN Reason: Protocol Last Admin: 09/10/16 18:18 Dose: 8 unit Insulin Detemir (Levemir) 30 unit SC [facility] Levothyroxine Sodium (Synthroid) 50 mcg PO DAILY@0630 [facility] Last Admin: 09/10/16 06:00 Dose: 50 mcg Lorazepam (Ativan) 2 mg IVP Q6H PRN PRN Reason: Anxiety Pantoprazole Sodium (Protonix Susp) 40 mg PO DAILY [facility] Last Admin: 09/10/16 10:59 Dose: 40 mg Rosuvastatin Calcium (Crestor) 10 mg PO HS [facility] Last Admin: 09/09/16 21:50 Dose: 10 mg - Labs Labs: 09/10/16 06:41 09/10/16 06:41 PT 11.4 SECONDS (9.7-12.2) 09/10/16 06:41 INR 1.0 09/10/16 06:41 APTT 25 SECONDS (21-34) D 09/10/16 06:41 Assessment and Plan - Assessment and Plan (Free Text) Assessment: (1) Respiratory failure with hypoxia Status: Acute Comment: On Ventilator (2) NSTEMI (non-ST elevation myocardial infarction) Status: Acute After d/w ICU team Patient's family requesting for cardiac cath I 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 Neely (3) Acute kidney injury superimposed on CKD Status: Chronic
[2016-09-10] MEDS ORDERED: Insulin Detemir 100 units/ml Vial (Levemir) SC SCH (22:00)
[2016-09-11] MEDS: (Novolog) Insulin Aspart, Recombinant 100 u/ml 10 ml vial SC SCH ×4 (00:25→18:37)
[2016-09-11] MEDS: Albuterol-Ipratrop 3 mg / 0.5 (3 ml) UD INH SCH ×4 (00:59→19:32)
[2016-09-11 05:36] LABS: ABG ALLEN TEST POS; ABG MECHANICAL RATE 16; ARTERIAL BLOOD HGB O2 SAT 97.3 % (95.0-98.0); ATERIAL BLOOD GAS PEEP 10; CARBOXYHEMOGLOBIN 1.2 % (0.5-1.5); DRAW SITE LB; HHB 0.4 % (0.0-5.0); METHEMOGLOBIN 1.1 % (0.0-3.0)
[2016-09-11] MEDS: Levothyroxine 50 MCG TAB PO SCH (06:30)
[2016-09-11 06:39] LABS: BASO % 0.1 % (0.0-2.0); EOS % 0.1 % (0.0-4.0); HEMATOCRIT 28.7 % (35.0-51.0); LYMPH % 7.8 % (20.0-40.0); MEAN CELL VOLUME 93.6 fL (80.0-94.0); MEAN CORPUSCULAR HGB CONC 33.1 g/dL (33.0-37.0); MEAN PLATELET VOLUME 9.4 fL (7.2-11.7); MONO # 1.4 K/uL (0.0-0.8); MONO % 11.7 % (0.0-10.0); NRBC % 0.1 % (0.0-2.0); PLATELET COUNT 231 K/uL (130-400); RED CELL DISTRIBUTION WIDTH 13.6 % (11.5-14.5); WHITE BLOOD COUNT 12.4 K/uL (4.8-10.8)
[2016-09-11 06:51] LABS: POTASSIUM 4.1 mmol/L (3.6-5.2)
[2016-09-11 06:53] LABS: BILIRUBIN,TOTAL 0.4 mg/dL (0.2-1.3); TOTAL PROTEIN 5.5 g/dL (6.3-8.3)
[2016-09-11 06:54] LABS: CALCIUM 6.5 mg/dl (8.6-10.4); MAGNESIUM 2.6 mg/dL (1.6-2.3); PHOSPHOROUS 3.7 mg/dL (2.5-4.5)
[2016-09-11 08:17] LABS: LARGE PLATELETS PRESENT; MYELOCYTE 1 % (0-0); NEUTROPHIL 78 % (50-75); REACTIVE LYMPHOCYTES 1 % (0-0); TOTAL CELLS COUNTED 100
--- NOTE | 2016-09-11 08:47 | CP.CCUPN ---
Addendum entered and electronically signed by Linda Guardado DO 09/11/16 14:22 : Patient returned from Catherization. Current vent settings: PVRC: FiO2 50, PEEP 10, RR 16, Tvolume 450 saturating at 100%. Propofol is being titrated down. Diabeticsource restarted. Original Note: <Linda Guardado - Last Filed: 09/11/16 13:54> CCU Subjective - Physician Review Subjective (Free Text): Patient was seen and examined at bedside. No acute events overnight. Patient is currently intubated on PVRC: FiO2 70, PEEP 10, RR 16, Tvolume 450 saturating at 100%. Patient scheduled for cath at 10:30am. Patient will require dialysis after catherization. Patient has leukocytosis, ellison-cultured and pro-calcitonin ordered. CCU Objective - Vital Signs / Intake & Output Vital Signs (Last 4 hours): Vital Signs Temp Pulse Resp BP Pulse Ox 09/11/16 08:00 97.4 F L 74 16 130/63 100 09/11/16 07:00 74 16 134/67 100 09/11/16 06:00 80 17 134/67 100 Intake and Output (Last 8hrs): Intake & Output 09/10/16 09/11/16 09/11/16 22:59 06:59 14:59 Intake Total 509 436 34 Output Total 285 350 175 Balance 224 86 -141 Weight 163 lb Intake: Intake, IV Amount 109 136 34 Right Proximal Port PICC 109 136 34 Tube Feeding 400 300 0 Output: Urine 285 350 175 Urethral (Garza) 285 350 175 - Physical Exam Physical Exam Limitations: Positive for: Other (Intubated ) Head: Positive for: Atraumatic, Normocephalic Pupils: Positive for: PERRL Extroacular Muscles: Positive for: EOMI Conjunctiva: Positive for: Normal Mouth: Positive for: Moist Mucous Membranes, Other (ET in place) Neck: Positive for: Normal Range of Motion Respiratory/Chest: Positive for: Decreased Breath Sounds Cardiovascular: Positive for: Regular Rate and Rhythm, Normal S1, S2 Abdomen: Positive for: Distention, Normal Bowel Sounds. Negative for: Tenderness Upper Extremity: Positive for: Normal Inspection. Negative for: Cyanosis, Edema Lower Extremity: Positive for: Normal Inspection. Negative for: Edema Neurological: Positive for: GCS=15 Skin: Positive for: Warm, Dry Psychiatric: Positive for: Alert, Oriented x 3, Normal Insight - Medications Active Medications: Active Medications Generic Name Dose Route Start Last Admin Trade Name Freq PRN Reason Stop Dose Admin Albuterol/Ipratropium 3 ml 09/04/16 20:00 09/11/16 07:44 Duoneb 3 Mg/0.5 Mg (3 Ml) Ud INH 3 ml RQ6 CHRISTINA Administration Aspirin 81 mg 09/10/16 10:00 09/10/16 10:57 Aspirin Chewable PO 81 mg DAILY CHRISTINA Administration Epoetin Dominik 10,000 unit 09/10/16 11:15 09/10/16 11:16 Procrit IV 10,000 unit TTS CHRISTINA Administration Heparin Sodium (Porcine) 5,000 units 09/10/16 10:00 09/10/16 22:01 Heparin SC 5,000 units Q12 CHRISTINA Administration Propofol 100 mls @ 2.16 mls/hr 09/07/16 14:20 09/11/16 05:00 Diprivan IV 17 mls/hr .Q24H PRN Administration TITRATE PER MD ORDER Protocol 5 MCG/KG/MIN Insulin Aspart 0 unit 09/08/16 18:00 09/11/16 06:00 Novolog SC Not Given Q6 [facility] Protocol Insulin Detemir 30 unit 09/10/16 22:00 09/10/16 22:02 Levemir SC 30 unit HS CHRISTINA Administration Levothyroxine Sodium 50 mcg 09/05/16 06:30 09/11/16 06:30 Synthroid PO Not Given DAILY@0630 CHRISTINA Lorazepam 2 mg 09/09/16 19:18 Ativan IVP Q6H PRN Anxiety Pantoprazole Sodium 40 mg 09/08/16 10:15 09/10/16 10:59 Protonix Susp PO 40 mg DAILY CHRISTINA Administration Rosuvastatin Calcium 10 mg 09/04/16 21:15 09/10/16 22:01 Crestor PO 10 mg HS CHRISTINA Administration - Patient Studies Lab Studies: Lab Studies 09/11/16 09/11/16 09/11/16 Range/Units 07:18 06:29 05:38 WBC 12.4 H (4.8-10.8) K/uL RBC 3.07 L (4.40-5.90) Mil/uL Hgb 9.5 L (12.0-18.0) g/dL Hct 28.7 L (35.0-51.0) % MCV 93.6 (80.0-94.0) fL MCH 31.0 (27.0-31.0) pg MCHC 33.1 (33.0-37.0) g/dL RDW 13.6 (11.5-14.5) % Plt Count 231 (130-400) K/uL MPV 9.4 (7.2-11.7) fL Neut % (Auto) 80.3 H (50.0-75.0) % Lymph % (Auto) 7.8 L (20.0-40.0) % Traverse % (Auto) 11.7 H (0.0-10.0) % Eos % (Auto) 0.1 (0.0-4.0) % Baso % (Auto) 0.1 (0.0-2.0) % Neut # 10.0 H (1.8-7.0) K/uL Lymph # 1.0 (1.0-4.3) K/uL Traverse # 1.4 H (0.0-0.8) K/uL Eos # 0.0 (0.0-0.7) K/uL Baso # 0.0 (0.0-0.2) K/uL Neutrophils % (Manual) 78 H (50-75) % Band Neutrophils % 4 H (0-2) % Lymphocytes % (Manual) 8 L (20-40) % Reactive Lymphs % 1 H (0-0) % Monocytes % (Manual) 8 (0-10) % Myelocytes % 1 H (0-0) % Platelet Estimate Normal (NORMAL) Large Platelets Present Basophilic Stippling Slight Puncture Site pCO2 (35-45) mm/Hg pO2 (80-100) mm/Hg HCO3 (21-28) mmol/L ABG pH (7.35-7.45) ABG Total CO2 (22-28) mmol/L ABG O2 Saturation (95-98) % ABG Base Excess (-2.0-3.0) mmol/L ABG Hemoglobin (11.7-17.4) g/dL ABG Carboxyhemoglobin (0.5-1.5) % POC ABG HHb (Measured) (0.0-5.0) % ABG Methemoglobin (0.0-3.0) % Tejinder Test A-a O2 Difference mm/Hg Respiratory Index Hgb O2 Saturation (95.0-98.0) % Mechanical Rate FiO2 % Tidal Volume PEEP Sodium 137 (132-148) mmol/L Potassium 4.1 (3.6-5.2) mmol/L Chloride 98 (98-107) mmol/L Carbon Dioxide 25 (22-30) mmol/L Anion Gap 19 (10-20) BUN 68 H (9-20) mg/dL Creatinine 2.3 H (0.8-1.5) MG/DL Est GFR ( Amer) 33 Est GFR (Non-Af Amer) 27 POC Glucose (mg/dL) 329 H 337 H (65-110) mg/dL Random Glucose 314 H (75-110) mg/dL Calcium 6.5 L (8.6-10.4) mg/dl Phosphorus 3.7 (2.5-4.5) mg/dL Magnesium 2.6 H (1.6-2.3) mg/dL Total Bilirubin 0.4 (0.2-1.3) mg/dL AST 24 (17-59) U/L ALT 56 (21-72) U/L Alkaline Phosphatase 88 (38-126) U/L Total Protein 5.5 L (6.3-8.3) g/dL Albumin 2.8 L (3.5-5.0) g/dL Globulin 2.8 (2.2-3.9) gm/dL Albumin/Globulin Ratio 1.0 (1.0-2.1) 09/11/16 09/11/16 09/10/16 Range/Units 05:30 00:05 17:55 WBC (4.8-10.8) K/uL RBC (4.40-5.90) Mil/uL Hgb (12.0-18.0) g/dL Hct (35.0-51.0) % MCV (80.0-94.0) fL MCH (27.0-31.0) pg MCHC (33.0-37.0) g/dL RDW (11.5-14.5) % Plt Count (130-400) K/uL MPV (7.2-11.7) fL Neut % (Auto) (50.0-75.0) % Lymph % (Auto) (20.0-40.0) % Traverse % (Auto) (0.0-10.0) % Eos % (Auto) (0.0-4.0) % Baso % (Auto) (0.0-2.0) % Neut # (1.8-7.0) K/uL Lymph # (1.0-4.3) K/uL Traverse # (0.0-0.8) K/uL Eos # (0.0-0.7) K/uL Baso # (0.0-0.2) K/uL Neutrophils % (Manual) (50-75) % Band Neutrophils % (0-2) % Lymphocytes % (Manual) (20-40) % Reactive Lymphs % (0-0) % Monocytes % (Manual) (0-10) % Myelocytes % (0-0) % Platelet Estimate (NORMAL) Large Platelets Basophilic Stippling Puncture Site Lb pCO2 39 (35-45) mm/Hg pO2 233 H (80-100) mm/Hg HCO3 27.8 (21-28) mmol/L ABG pH 7.46 H (7.35-7.45) ABG Total CO2 28.9 H (22-28) mmol/L ABG O2 Saturation 99.6 H (95-98) % ABG Base Excess 3.6 H (-2.0-3.0) mmol/L ABG Hemoglobin 9.4 L (11.7-17.4) g/dL ABG Carboxyhemoglobin 1.2 (0.5-1.5) % POC ABG HHb (Measured) 0.4 (0.0-5.0) % ABG Methemoglobin 1.1 (0.0-3.0) % Tejinder Test Pos A-a O2 Difference 217.0 mm/Hg Respiratory Index 0.9 Hgb O2 Saturation 97.3 (95.0-98.0) % Mechanical Rate 16 FiO2 70.0 % Tidal Volume 450 PEEP 10 Sodium (132-148) mmol/L Potassium (3.6-5.2) mmol/L Chloride (98-107) mmol/L Carbon Dioxide (22-30) mmol/L Anion Gap (10-20) BUN (9-20) mg/dL Creatinine (0.8-1.5) MG/DL Est GFR ( Amer) Est GFR (Non-Af Amer) POC Glucose (mg/dL) 388 H 313 H (65-110) mg/dL Random Glucose (75-110) mg/dL Calcium (8.6-10.4) mg/dl Phosphorus (2.5-4.5) mg/dL Magnesium (1.6-2.3) mg/dL Total Bilirubin (0.2-1.3) mg/dL AST (17-59) U/L ALT (21-72) U/L Alkaline Phosphatase (38-126) U/L Total Protein (6.3-8.3) g/dL Albumin (3.5-5.0) g/dL Globulin (2.2-3.9) gm/dL Albumin/Globulin Ratio (1.0-2.1) / Range/Units 12:03 WBC (4.8-10.8) K/uL RBC (4.40-5.90) Mil/uL Hgb (12.0-18.0) g/dL Hct (35.0-51.0) % MCV (80.0-94.0) fL MCH (27.0-31.0) pg MCHC (33.0-37.0) g/dL RDW (11.5-14.5) % Plt Count (130-400) K/uL MPV (7.2-11.7) fL Neut % (Auto) (50.0-75.0) % Lymph % (Auto) (20.0-40.0) % Traverse % (Auto) (0.0-10.0) % Eos % (Auto) (0.0-4.0) % Baso % (Auto) (0.0-2.0) % Neut # (1.8-7.0) K/uL Lymph # (1.0-4.3) K/uL Traverse # (0.0-0.8) K/uL Eos # (0.0-0.7) K/uL Baso # (0.0-0.2) K/uL Neutrophils % (Manual) (50-75) % Band Neutrophils % (0-2) % Lymphocytes % (Manual) (20-40) % Reactive Lymphs % (0-0) % Monocytes % (Manual) (0-10) % Myelocytes % (0-0) % Platelet Estimate (NORMAL) Large Platelets Basophilic Stippling Puncture Site pCO2 (35-45) mm/Hg pO2 (80-100) mm/Hg HCO3 (21-28) mmol/L ABG pH (7.35-7.45) ABG Total CO2 (22-28) mmol/L ABG O2 Saturation (95-98) % ABG Base Excess (-2.0-3.0) mmol/L ABG Hemoglobin (11.7-17.4) g/dL ABG Carboxyhemoglobin (0.5-1.5) % POC ABG HHb (Measured) (0.0-5.0) % ABG Methemoglobin (0.0-3.0) % Tejinder Test A-a O2 Difference mm/Hg Respiratory Index Hgb O2 Saturation (95.0-98.0) % Mechanical Rate FiO2 % Tidal Volume PEEP Sodium (132-148) mmol/L Potassium (3.6-5.2) mmol/L Chloride (98-107) mmol/L Carbon Dioxide (22-30) mmol/L Anion Gap (10-20) BUN (9-20) mg/dL Creatinine (0.8-1.5) MG/DL Est GFR ( Amer) Est GFR (Non-Af Amer) POC Glucose (mg/dL) 154 H (65-110) mg/dL Random Glucose (75-110) mg/dL Calcium (8.6-10.4) mg/dl Phosphorus (2.5-4.5) mg/dL Magnesium (1.6-2.3) mg/dL Total Bilirubin (0.2-1.3) mg/dL AST (17-59) U/L ALT (21-72) U/L Alkaline Phosphatase (38-126) U/L Total Protein (6.3-8.3) g/dL Albumin (3.5-5.0) g/dL Globulin (2.2-3.9) gm/dL Albumin/Globulin Ratio (1.0-2.1) Laboratory Results - last 24 hr 09/10/16 09/10/16 09/11/16 12:03 17:55 00:05 WBC RBC Hgb Hct MCV MCH MCHC RDW Plt Count MPV Neut % (Auto) Lymph % (Auto) Traverse % (Auto) Eos % (Auto) Baso % (Auto) Neut # Lymph # Traverse # Eos # Baso # Neutrophils % (Manual) Band Neutrophils % Lymphocytes % (Manual) Reactive Lymphs % Monocytes % (Manual) Myelocytes % Platelet Estimate Large Platelets Basophilic Stippling Puncture Site pCO2 pO2 HCO3 ABG pH ABG Total CO2 ABG O2 Saturation ABG Base Excess ABG Hemoglobin ABG Carboxyhemoglobin POC ABG HHb (Measured) ABG Methemoglobin Tejinder Test A-a O2 Difference Respiratory Index Hgb O2 Saturation Mechanical Rate FiO2 Tidal Volume PEEP Sodium Potassium Chloride Carbon Dioxide Anion Gap BUN Creatinine Est GFR ( Amer) Est GFR (Non-Af Amer) POC Glucose (mg/dL) 154 H 313 H 388 H Random Glucose Calcium Phosphorus Magnesium Total Bilirubin AST ALT Alkaline Phosphatase Total Protein Albumin Globulin Albumin/Globulin Ratio 09/11/16 09/11/16 09/11/16 05:30 05:38 06:29 WBC 12.4 H RBC 3.07 L Hgb 9.5 L Hct 28.7 L MCV 93.6 MCH 31.0 MCHC 33.1 RDW 13.6 Plt Count 231 MPV 9.4 Neut % (Auto) 80.3 H Lymph % (Auto) 7.8 L Traverse % (Auto) 11.7 H Eos % (Auto) 0.1 Baso % (Auto) 0.1 Neut # 10.0 H Lymph # 1.0 Traverse # 1.4 H Eos # 0.0 Baso # 0.0 Neutrophils % (Manual) 78 H Band Neutrophils % 4 H Lymphocytes % (Manual) 8 L Reactive Lymphs % 1 H Monocytes % (Manual) 8 Myelocytes % 1 H Platelet Estimate Normal Large Platelets Present Basophilic Stippling Slight Puncture Site Lb pCO2 39 pO2 233 H HCO3 27.8 ABG pH 7.46 H ABG Total CO2 28.9 H ABG O2 Saturation 99.6 H ABG Base Excess 3.6 H ABG Hemoglobin 9.4 L ABG Carboxyhemoglobin 1.2 POC ABG HHb (Measured) 0.4 ABG Methemoglobin 1.1 Tejinder Test Pos A-a O2 Difference 217.0 Respiratory Index 0.9 Hgb O2 Saturation 97.3 Mechanical Rate 16 FiO2 70.0 Tidal Volume 450 PEEP 10 Sodium 137 Potassium 4.1 Chloride 98 Carbon Dioxide 25 Anion Gap 19 BUN 68 H Creatinine 2.3 H Est GFR ( Amer) 33 Est GFR (Non-Af Amer) 27 POC Glucose (mg/dL) 337 H Random Glucose 314 H Calcium 6.5 L Phosphorus 3.7 Magnesium 2.6 H Total Bilirubin 0.4 AST 24 ALT 56 Alkaline Phosphatase 88 Total Protein 5.5 L Albumin 2.8 L Globulin 2.8 Albumin/Globulin Ratio 1.0 09/11/16 07:18 WBC RBC Hgb Hct MCV MCH MCHC RDW Plt Count MPV Neut % (Auto) Lymph % (Auto) Traverse % (Auto) Eos % (Auto) Baso % (Auto) Neut # Lymph # Traverse # Eos # Baso # Neutrophils % (Manual) Band Neutrophils % Lymphocytes % (Manual) Reactive Lymphs % Monocytes % (Manual) Myelocytes % Platelet Estimate Large Platelets Basophilic Stippling Puncture Site pCO2 pO2 HCO3 ABG pH ABG Total CO2 ABG O2 Saturation ABG Base Excess ABG Hemoglobin ABG Carboxyhemoglobin POC ABG HHb (Measured) ABG Methemoglobin Tejinder Test A-a O2 Difference Respiratory Index Hgb O2 Saturation Mechanical Rate FiO2 Tidal Volume PEEP Sodium Potassium Chloride Carbon Dioxide Anion Gap BUN Creatinine Est GFR ( Amer) Est GFR (Non-Af Amer) POC Glucose (mg/dL) 329 H Random Glucose Calcium Phosphorus Magnesium Total Bilirubin AST ALT Alkaline Phosphatase Total Protein Albumin Globulin Albumin/Globulin Ratio Fingerstick Blood Sugar Results: 337 Critical Care Progress Note - Nutrition Nutrition: Nutrition Category Date Time Status NPO Diet [DIET] Diets 09/11/16 Breakfast Active Assessment/Plan - Assessment and Plan (Free Text) Assessment: 81 year old with DM, HTN, CKD, meningeoma, admitted with shortness of breath requiring BiPAP. Pulmonary edema, ARDS, requiring intubation. Elevated troponins , diagnosed with NSTEMI. Plan: Neuro: Intubated Pulm: Patient intubated due to severe ARDS, currently now mild ARDS ABG: much improved Current vent settings: PRVC: FiO2 70%, Tvolume 4500, resp rate 16, peep 10 Duonebs Q6H, Imdur, Solumedrol was DC Patient had PICC line placed for heparin drip 09/11 CXR: Much improved, less congested CV: Elevated troponins: NSTEMI; PICC line placed ECHO: Left ventricle mildly dilated. Anteroapical and inferoapical hypokinesis. Grade 3 restrictive diastolic dysfunction. Moderate TR, Pulm HTN, MR and mild AR. No pericardial effusion. HLD: Crestor 10mg PO QHS CAD: ASA Plan for Cardiac Catherization with Dr. Garcia today: Patient s/p cath 1. L Main: Distal calcific 70% 2. LAD: Mid to distal calcific 80 to 95% calcific stenosis 3. L Cx: Ostail calcific 90%, Mid Calcific 80% 4. RCA: Proximal 100% occluded 5. 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 Garcia will decide after patient gets extubated and is more stable Renal: LUIS EDUARDO on CKD Baseline creatine: 3.0 Procrit 10,000 units TTS Wade catheter placed Dr. Cain consulted - underwent hemodialysis yesterday, currently undergoing dialysis Day 07/04. Patient will receive dialysis today after cardiac catherization. Endo: DM: increased to Levemir 30 units BID, ISS - high Hypothyroidism: 50 mcg PO daily GI: Diabeticsource tube feeding at goal rate of 50cc/hr Protonix 40mg PO daily ID: Afebrile, leukocytosis - 12.4 Dr. Price consulted - help appreciated Ellison-cultured, pro-calcitonin F/U DVT Prophylaxis: Heparin 5000 Q12H Medical records retrieved from [facility]: Patient had Carotid dopplers on 05/18/2016 which should Right ICA stenosis of 70-79%. MRA of carotids showed: 50-69% narrowing takeoff of right ICA with a less than 50% narrowing more distally. ECHO done on 08/16/16 showed LVEF: 60-65%. Grade 1 diastolic dysfunction present. Left atrium borderline dilated. Mild AR, TR, moderate AR, MR. Right ventricular systolic pressure is estimated at 46mmHG. Jose (SON) [phone] DW Geo Murray DO, PGY-1 <Tru Eugene - Last Filed: 09/11/16 15:57> CCU Objective - Vital Signs / Intake & Output Vital Signs (Last 4 hours): Vital Signs Temp Pulse Resp BP 04/14/17 14:45 75 16 129/64 04/14/17 14:30 97.6 F 74 16 137/65 09/11/16 14:15 97.6 F 78 16 129/62 Intake and Output (Last 8hrs): Intake & Output 09/11/16 09/11/16 09/11/16 06:59 14:59 22:59 Intake Total 436 66 Output Total 350 220 Balance 86 -154 Weight 163 lb Intake: Intake, IV Amount 136 66 Right Proximal Port PICC 136 66 Tube Feeding 300 0 Output: Urine 350 220 Urethral (Garza) 350 220 - Medications Active Medications: Active Medications Generic Name Dose Route Start Last Admin Trade Name Freq PRN Reason Stop Dose Admin Albuterol/Ipratropium 3 ml 09/04/16 20:00 09/11/16 14:13 Duoneb 3 Mg/0.5 Mg (3 Ml) Ud INH 3 ml RQ6 CHRISTINA Administration Aspirin 81 mg 09/10/16 10:00 09/11/16 14:11 Aspirin Chewable PO 81 mg DAILY CHRISTINA Administration Calcium Carbonate 500 mg 09/11/16 18:00 Tums GT BID CHRISTINA Epoetin Dominik 10,000 unit 09/10/16 11:15 09/10/16 11:16 Procrit IV 10,000 unit TTS CHRISTINA Administration Heparin Sodium (Porcine) 5,000 units 09/10/16 10:00 09/11/16 10:17 Heparin SC Not Given Q12 [facility] Propofol 100 mls @ 2.16 mls/hr 09/07/16 14:20 09/11/16 14:14 Diprivan IV 30 mcg/kg/min .Q24H PRN Titration TITRATE PER MD ORDER Protocol 5 MCG/KG/MIN Insulin Aspart 0 unit 09/08/16 18:00 09/11/16 12:00 Novolog SC Not Given Q6 [facility] Protocol Insulin Detemir 30 unit 09/11/16 10:15 09/11/16 10:36 Levemir SC 30 unit BID CHRISTINA Administration Levothyroxine Sodium 50 mcg 09/05/16 06:30 09/11/16 06:30 Synthroid PO Not Given DAILY@0630 CHRISTINA Lorazepam 2 mg 09/09/16 19:18 Ativan IVP Q6H PRN Anxiety Pantoprazole Sodium 40 mg 09/08/16 10:15 09/11/16 10:18 Protonix Susp PO Not Given DAILY CHRISTINA Rosuvastatin Calcium 10 mg 09/04/16 21:15 09/10/16 22:01 Crestor PO 10 mg HS CHRISTINA Administration - Patient Studies Lab Studies: Lab Studies 09/11/16 09/11/16 09/11/16 Range/Units 11:25 07:18 06:29 WBC 12.4 H (4.8-10.8) K/uL RBC 3.07 L (4.40-5.90) Mil/uL Hgb 9.5 L (12.0-18.0) g/dL Hct 28.7 L (35.0-51.0) % MCV 93.6 (80.0-94.0) fL MCH 31.0 (27.0-31.0) pg MCHC 33.1 (33.0-37.0) g/dL RDW 13.6 (11.5-14.5) % Plt Count 231 (130-400) K/uL MPV 9.4 (7.2-11.7) fL Neut % (Auto) 80.3 H (50.0-75.0) % Lymph % (Auto) 7.8 L (20.0-40.0) % Traverse % (Auto) 11.7 H (0.0-10.0) % Eos % (Auto) 0.1 (0.0-4.0) % Baso % (Auto) 0.1 (0.0-2.0) % Neut # 10.0 H (1.8-7.0) K/uL Lymph # 1.0 (1.0-4.3) K/uL Traverse # 1.4 H (0.0-0.8) K/uL Eos # 0.0 (0.0-0.7) K/uL Baso # 0.0 (0.0-0.2) K/uL Neutrophils % (Manual) 78 H (50-75) % Band Neutrophils % 4 H (0-2) % Lymphocytes % (Manual) 8 L (20-40) % Reactive Lymphs % 1 H (0-0) % Monocytes % (Manual) 8 (0-10) % Myelocytes % 1 H (0-0) % Platelet Estimate Normal (NORMAL) Large Platelets Present Basophilic Stippling Slight Puncture Site pCO2 (35-45) mm/Hg pO2 (80-100) mm/Hg HCO3 (21-28) mmol/L ABG pH (7.35-7.45) ABG Total CO2 (22-28) mmol/L ABG O2 Saturation (95-98) % ABG Base Excess (-2.0-3.0) mmol/L ABG Hemoglobin (11.7-17.4) g/dL ABG Carboxyhemoglobin (0.5-1.5) % POC ABG HHb (Measured) (0.0-5.0) % ABG Methemoglobin (0.0-3.0) % Tejinder Test A-a O2 Difference mm/Hg Respiratory Index Hgb O2 Saturation (95.0-98.0) % Mechanical Rate FiO2 % Tidal Volume PEEP Sodium 137 (132-148) mmol/L Potassium 4.1 (3.6-5.2) mmol/L Chloride 98 (98-107) mmol/L Carbon Dioxide 25 (22-30) mmol/L Anion Gap 19 (10-20) BUN 68 H (9-20) mg/dL Creatinine 2.3 H (0.8-1.5) MG/DL Est GFR ( Amer) 33 Est GFR (Non-Af Amer) 27 POC Glucose (mg/dL) 260 H 329 H (65-110) mg/dL Random Glucose 314 H (75-110) mg/dL Calcium 6.5 L (8.6-10.4) mg/dl Phosphorus 3.7 (2.5-4.5) mg/dL Magnesium 2.6 H (1.6-2.3) mg/dL Total Bilirubin 0.4 (0.2-1.3) mg/dL AST 24 (17-59) U/L ALT 56 (21-72) U/L Alkaline Phosphatase 88 (38-126) U/L Total Protein 5.5 L (6.3-8.3) g/dL Albumin 2.8 L (3.5-5.0) g/dL Globulin 2.8 (2.2-3.9) gm/dL Albumin/Globulin Ratio 1.0 (1.0-2.1) PTH Intact Whole Molec (14-64) pg/mL 09/11/16 09/11/16 09/11/16 Range/Units 05:38 05:30 00:05 WBC (4.8-10.8) K/uL RBC (4.40-5.90) Mil/uL Hgb (12.0-18.0) g/dL Hct (35.0-51.0) % MCV (80.0-94.0) fL MCH (27.0-31.0) pg MCHC (33.0-37.0) g/dL RDW (11.5-14.5) % Plt Count (130-400) K/uL MPV (7.2-11.7) fL Neut % (Auto) (50.0-75.0) % Lymph % (Auto) (20.0-40.0) % Traverse % (Auto) (0.0-10.0) % Eos % (Auto) (0.0-4.0) % Baso % (Auto) (0.0-2.0) % Neut # (1.8-7.0) K/uL Lymph # (1.0-4.3) K/uL Traverse # (0.0-0.8) K/uL Eos # (0.0-0.7) K/uL Baso # (0.0-0.2) K/uL Neutrophils % (Manual) (50-75) % Band Neutrophils % (0-2) % Lymphocytes % (Manual) (20-40) % Reactive Lymphs % (0-0) % Monocytes % (Manual) (0-10) % Myelocytes % (0-0) % Platelet Estimate (NORMAL) Large Platelets Basophilic Stippling Puncture Site Lb pCO2 39 (35-45) mm/Hg pO2 233 H (80-100) mm/Hg HCO3 27.8 (21-28) mmol/L ABG pH 7.46 H (7.35-7.45) ABG Total CO2 28.9 H (22-28) mmol/L ABG O2 Saturation 99.6 H (95-98) % ABG Base Excess 3.6 H (-2.0-3.0) mmol/L ABG Hemoglobin 9.4 L (11.7-17.4) g/dL ABG Carboxyhemoglobin 1.2 (0.5-1.5) % POC ABG HHb (Measured) 0.4 (0.0-5.0) % ABG Methemoglobin 1.1 (0.0-3.0) % Tejinder Test Pos A-a O2 Difference 217.0 mm/Hg Respiratory Index 0.9 Hgb O2 Saturation 97.3 (95.0-98.0) % Mechanical Rate 16 FiO2 70.0 % Tidal Volume 450 PEEP 10 Sodium (132-148) mmol/L Potassium (3.6-5.2) mmol/L Chloride (98-107) mmol/L Carbon Dioxide (22-30) mmol/L Anion Gap (10-20) BUN (9-20) mg/dL Creatinine (0.8-1.5) MG/DL Est GFR ( Amer) Est GFR (Non-Af Amer) POC Glucose (mg/dL) 337 H 388 H (65-110) mg/dL Random Glucose (75-110) mg/dL Calcium (8.6-10.4) mg/dl Phosphorus (2.5-4.5) mg/dL Magnesium (1.6-2.3) mg/dL Total Bilirubin (0.2-1.3) mg/dL AST (17-59) U/L ALT (21-72) U/L Alkaline Phosphatase (38-126) U/L Total Protein (6.3-8.3) g/dL Albumin (3.5-5.0) g/dL Globulin (2.2-3.9) gm/dL Albumin/Globulin Ratio (1.0-2.1) PTH Intact Whole Molec (14-64) pg/mL 09/10/16 09/10/16 Range/Units 17:55 06:41 WBC (4.8-10.8) K/uL RBC (4.40-5.90) Mil/uL Hgb (12.0-18.0) g/dL Hct (35.0-51.0) % MCV (80.0-94.0) fL MCH (27.0-31.0) pg MCHC (33.0-37.0) g/dL RDW (11.5-14.5) % Plt Count (130-400) K/uL MPV (7.2-11.7) fL Neut % (Auto) (50.0-75.0) % Lymph % (Auto) (20.0-40.0) % Traverse % (Auto) (0.0-10.0) % Eos % (Auto) (0.0-4.0) % Baso % (Auto) (0.0-2.0) % Neut # (1.8-7.0) K/uL Lymph # (1.0-4.3) K/uL Traverse # (0.0-0.8) K/uL Eos # (0.0-0.7) K/uL Baso # (0.0-0.2) K/uL Neutrophils % (Manual) (50-75) % Band Neutrophils % (0-2) % Lymphocytes % (Manual) (20-40) % Reactive Lymphs % (0-0) % Monocytes % (Manual) (0-10) % Myelocytes % (0-0) % Platelet Estimate (NORMAL) Large Platelets Basophilic Stippling Puncture Site pCO2 (35-45) mm/Hg pO2 (80-100) mm/Hg HCO3 (21-28) mmol/L ABG pH (7.35-7.45) ABG Total CO2 (22-28) mmol/L ABG O2 Saturation (95-98) % ABG Base Excess (-2.0-3.0) mmol/L ABG Hemoglobin (11.7-17.4) g/dL ABG Carboxyhemoglobin (0.5-1.5) % POC ABG HHb (Measured) (0.0-5.0) % ABG Methemoglobin (0.0-3.0) % Tejinder Test A-a O2 Difference mm/Hg Respiratory Index Hgb O2 Saturation (95.0-98.0) % Mechanical Rate FiO2 % Tidal Volume PEEP Sodium (132-148) mmol/L Potassium (3.6-5.2) mmol/L Chloride (98-107) mmol/L Carbon Dioxide (22-30) mmol/L Anion Gap (10-20) BUN (9-20) mg/dL Creatinine (0.8-1.5) MG/DL Est GFR ( Amer) Est GFR (Non-Af Amer) POC Glucose (mg/dL) 313 H (65-110) mg/dL Random Glucose (75-110) mg/dL Calcium (8.6-10.4) mg/dl Phosphorus (2.5-4.5) mg/dL Magnesium (1.6-2.3) mg/dL Total Bilirubin (0.2-1.3) mg/dL AST (17-59) U/L ALT (21-72) U/L Alkaline Phosphatase (38-126) U/L Total Protein (6.3-8.3) g/dL Albumin (3.5-5.0) g/dL Globulin (2.2-3.9) gm/dL Albumin/Globulin Ratio (1.0-2.1) PTH Intact Whole Molec 387 H (14-64) pg/mL Laboratory Results - last 24 hr 09/10/16 09/10/16 09/11/16 06:41 17:55 00:05 WBC RBC Hgb Hct MCV MCH MCHC RDW Plt Count MPV Neut % (Auto) Lymph % (Auto) Traverse % (Auto) Eos % (Auto) Baso % (Auto) Neut # Lymph # Traverse # Eos # Baso # Neutrophils % (Manual) Band Neutrophils % Lymphocytes % (Manual) Reactive Lymphs % Monocytes % (Manual) Myelocytes % Platelet Estimate Large Platelets Basophilic Stippling Puncture Site pCO2 pO2 HCO3 ABG pH ABG Total CO2 ABG O2 Saturation ABG Base Excess ABG Hemoglobin ABG Carboxyhemoglobin POC ABG HHb (Measured) ABG Methemoglobin Tejinder Test A-a O2 Difference Respiratory Index Hgb O2 Saturation Mechanical Rate FiO2 Tidal Volume PEEP Sodium Potassium Chloride Carbon Dioxide Anion Gap BUN Creatinine Est GFR ( Amer) Est GFR (Non-Af Amer) POC Glucose (mg/dL) 313 H 388 H Random Glucose Calcium Phosphorus Magnesium Total Bilirubin AST ALT Alkaline Phosphatase Total Protein Albumin Globulin Albumin/Globulin Ratio PTH Intact Whole Molec 387 H 09/11/16 09/11/16 09/11/16 05:30 05:38 06:29 WBC 12.4 H RBC 3.07 L Hgb 9.5 L Hct 28.7 L MCV 93.6 MCH 31.0 MCHC 33.1 RDW 13.6 Plt Count 231 MPV 9.4 Neut % (Auto) 80.3 H Lymph % (Auto) 7.8 L Traverse % (Auto) 11.7 H Eos % (Auto) 0.1 Baso % (Auto) 0.1 Neut # 10.0 H Lymph # 1.0 Traverse # 1.4 H Eos # 0.0 Baso # 0.0 Neutrophils % (Manual) 78 H Band Neutrophils % 4 H Lymphocytes % (Manual) 8 L Reactive Lymphs % 1 H Monocytes % (Manual) 8 Myelocytes % 1 H Platelet Estimate Normal Large Platelets Present Basophilic Stippling Slight Puncture Site Lb pCO2 39 pO2 233 H HCO3 27.8 ABG pH 7.46 H ABG Total CO2 28.9 H ABG O2 Saturation 99.6 H ABG Base Excess 3.6 H ABG Hemoglobin 9.4 L ABG Carboxyhemoglobin 1.2 POC ABG HHb (Measured) 0.4 ABG Methemoglobin 1.1 Tejinder Test Pos A-a O2 Difference 217.0 Respiratory Index 0.9 Hgb O2 Saturation 97.3 Mechanical Rate 16 FiO2 70.0 Tidal Volume 450 PEEP 10 Sodium 137 Potassium 4.1 Chloride 98 Carbon Dioxide 25 Anion Gap 19 BUN 68 H Creatinine 2.3 H Est GFR ( Amer) 33 Est GFR (Non-Af Amer) 27 POC Glucose (mg/dL) 337 H Random Glucose 314 H Calcium 6.5 L Phosphorus 3.7 Magnesium 2.6 H Total Bilirubin 0.4 AST 24 ALT 56 Alkaline Phosphatase 88 Total Protein 5.5 L Albumin 2.8 L Globulin 2.8 Albumin/Globulin Ratio 1.0 PTH Intact Whole Molec 09/11/16 09/11/16 07:18 11:25 WBC RBC Hgb Hct MCV MCH MCHC RDW Plt Count MPV Neut % (Auto) Lymph % (Auto) Traverse % (Auto) Eos % (Auto) Baso % (Auto) Neut # Lymph # Traverse # Eos # Baso # Neutrophils % (Manual) Band Neutrophils % Lymphocytes % (Manual) Reactive Lymphs % Monocytes % (Manual) Myelocytes % Platelet Estimate Large Platelets Basophilic Stippling Puncture Site pCO2 pO2 HCO3 ABG pH ABG Total CO2 ABG O2 Saturation ABG Base Excess ABG Hemoglobin ABG Carboxyhemoglobin POC ABG HHb (Measured) ABG Methemoglobin Tejinder Test A-a O2 Difference Respiratory Index Hgb O2 Saturation Mechanical Rate FiO2 Tidal Volume PEEP Sodium Potassium Chloride Carbon Dioxide Anion Gap BUN Creatinine Est GFR ( Amer) Est GFR (Non-Af Amer) POC Glucose (mg/dL) 329 H 260 H Random Glucose Calcium Phosphorus Magnesium Total Bilirubin AST ALT Alkaline Phosphatase Total Protein Albumin Globulin Albumin/Globulin Ratio PTH Intact Whole Molec Critical Care Progress Note - Nutrition Nutrition: Nutrition Category Date Time Status NPO Diet [DIET] Diets 09/11/16 Breakfast Active Attending/Attestation - Attestation I have personally seen and examined this patient.: Yes I have fully participated in the care of the patient.: Yes I have reviewed all pertinent clinical information: Yes Notes (Text): 09/11/16 15:02 I have seen and examined the patient. Medical records, lab studies, and imaging were reviewed by me and a management plan was formulated on multidisciplinary rounds with resident Dr. Guardado. I agree with their above documented assessment and plan. Underwent cardiac cath today, multiple occlusions, no stent placed, patient better candidate for eventual CABG. ARDS improving, trying to wean off of vent. Critical Care Time 35 minutes. Multi-disciplinary rounds were performed with house staff, nursing, speech therapy, respiratory therapy, pharmacy and nutrition with integrated input from the primary team/attending and other consulting services. The documented time is cumulative and includes review of patient data/exams/labs/chart review and examination of the patient on rounds and throughout the day; time is exclusive of any procedures or teaching time.
--- NOTE | 2016-09-11 09:29 | RAD ---
HISTORY: ARDS COMPARISON: 09/10/2016 FINDINGS: LUNGS: Lines and tubes in stable position. Moderate to severe venous congestion with bibasilar airspace opacities and small left pleural effusion. Small nodular density at the left costophrenic angle. Biapical pleural thickening with upper lobe granulomatous changes. PLEURA: As above. CARDIOVASCULAR: Calcification at the aortic knob. OSSEOUS STRUCTURES: No significant abnormalities. VISUALIZED UPPER ABDOMEN: Normal. OTHER FINDINGS: None. IMPRESSION: Lines and tubes in stable position. Moderate to severe venous congestion with bibasilar airspace opacities and small left pleural effusion. Small nodular density at the left costophrenic angle. Biapical pleural thickening with upper lobe granulomatous changes.
[2016-09-11] MEDS: Pantoprazole 40 mg Susp UD PO SCH (10:18)
[2016-09-11] MEDS: Insulin Detemir 100 units/ml Vial (Levemir) SC SCH ×2 (10:36→18:36)
--- NOTE | 2016-09-11 11:35 | CP.PCM.PN ---
Subjective - Date & Time of Evaluation Date of Evaluation: 09/11/16 Time of Evaluation: 09:35 - Subjective Subjective: Patient seen and examined in the intensive care unit. Intubated on ventilatory support FI02 is reduced to 50% For cardiac cath today Chest x-ray improving On hemodialysis Objective - Vital Signs/Intake and Output Vital Signs (last 24 hours): Temp Pulse Resp BP Pulse Ox 97.4 F L 74 16 130/63 100 09/11/16 08:00 09/11/16 08:00 09/11/16 08:00 09/11/16 08:00 09/11/16 08:00 Intake and Output: 09/11/16 09/11/16 06:59 18:59 Intake Total 701 66 Output Total 515 220 Balance 186 -154 - Medications Medications: Current Medications Albuterol/Ipratropium (Duoneb 3 Mg/0.5 Mg (3 Ml) Ud) 3 ml INH RQ6 [facility] Last Admin: 09/11/16 07:44 Dose: 3 ml Aspirin (Aspirin Chewable) 81 mg PO DAILY [facility] Last Admin: 09/10/16 10:57 Dose: 81 mg Epoetin Dominik (Procrit) 10,000 unit IV TTS [facility] Last Admin: 09/10/16 11:16 Dose: 10,000 unit Heparin Sodium (Porcine) (Heparin) 5,000 units SC Q12 [facility] Last Admin: 09/11/16 10:17 Dose: Not Given Propofol (Diprivan) 100 mls @ 2.16 mls/hr IV .Q24H PRN; Protocol; 5 MCG/KG/MIN PRN Reason: TITRATE PER MD ORDER Last Titration: 09/11/16 09:40 Dose: 35 mcg/kg/min Insulin Aspart (Novolog) 0 unit SC Q6 [facility] PRN Reason: Protocol Last Admin: 09/11/16 06:00 Dose: Not Given Insulin Detemir (Levemir) 30 unit SC BID [facility] Last Admin: 09/11/16 10:36 Dose: 30 unit Levothyroxine Sodium (Synthroid) 50 mcg PO DAILY@0630 [facility] Last Admin: 09/11/16 06:30 Dose: Not Given Lorazepam (Ativan) 2 mg IVP Q6H PRN PRN Reason: Anxiety Pantoprazole Sodium (Protonix Susp) 40 mg PO DAILY [facility] Last Admin: 09/11/16 10:18 Dose: Not Given Rosuvastatin Calcium (Crestor) 10 mg PO HS [facility] Last Admin: 09/10/16 22:01 Dose: 10 mg - Labs Labs: 09/11/16 06:29 09/11/16 06:29 PT 11.4 SECONDS (9.7-12.2) 09/10/16 06:41 INR 1.0 09/10/16 06:41 APTT 25 SECONDS (21-34) D 09/10/16 06:41 - Head Exam Head Exam: ATRAUMATIC, NORMOCEPHALIC - ENT Exam ENT Exam: Mucous Membranes Moist - Neck Exam Neck Exam: Normal Inspection - Respiratory Exam Respiratory Exam: Decreased Breath Sounds - Cardiovascular Exam Cardiovascular Exam: REGULAR RHYTHM - GI/Abdominal Exam GI & Abdominal Exam: Soft, Normal Bowel Sounds - Extremities Exam Extremities Exam: Pedal Edema Assessment and Plan (1) Respiratory failure with hypoxia Assessment & Plan: For cardiac cath today start weaning from tomorrow Continue hemodialysis Status: Acute (2) NSTEMI (non-ST elevation myocardial infarction) Status: Acute (3) Acute kidney injury superimposed on CKD Status: Chronic
[2016-09-11] MEDS ORDERED: Iodixanol 320 MG/ML 100 ML BOTTLE IV ONE (11:55)
--- NOTE | 2016-09-11 12:23 | CP.PCM.PN ---
Subjective - Date & Time of Evaluation Date of Evaluation: 09/11/16 Time of Evaluation: 12:20 - Subjective Subjective: Remains on vent but FiO2 reduced and CXR less congested For cardiac cath today- will repeat dialysis post cath Remains sedated- had been alert previously NGT feeds on hold pre cath Unable to obtain ROS Objective - Vital Signs/Intake and Output Vital Signs (last 24 hours): Temp Pulse Resp BP Pulse Ox 97.4 F L 74 16 130/63 100 09/11/16 08:00 09/11/16 08:00 09/11/16 08:00 09/11/16 08:00 09/11/16 08:00 Intake and Output: 09/11/16 09/11/16 06:59 18:59 Intake Total 701 66 Output Total 515 220 Balance 186 -154 - Medications Medications: Current Medications Albuterol/Ipratropium (Duoneb 3 Mg/0.5 Mg (3 Ml) Ud) 3 ml INH RQ6 [facility] Last Admin: 09/11/16 07:44 Dose: 3 ml Aspirin (Aspirin Chewable) 81 mg PO DAILY [facility] Last Admin: 09/10/16 10:57 Dose: 81 mg Epoetin Dominik (Procrit) 10,000 unit IV TTS [facility] Last Admin: 09/10/16 11:16 Dose: 10,000 unit Heparin Sodium (Porcine) (Heparin) 5,000 units SC Q12 [facility] Last Admin: 09/11/16 10:17 Dose: Not Given Propofol (Diprivan) 100 mls @ 2.16 mls/hr IV .Q24H PRN; Protocol; 5 MCG/KG/MIN PRN Reason: TITRATE PER MD ORDER Last Titration: 09/11/16 09:40 Dose: 35 mcg/kg/min Insulin Aspart (Novolog) 0 unit SC Q6 [facility] PRN Reason: Protocol Last Admin: 09/11/16 06:00 Dose: Not Given Insulin Detemir (Levemir) 30 unit SC BID [facility] Last Admin: 09/11/16 10:36 Dose: 30 unit Levothyroxine Sodium (Synthroid) 50 mcg PO DAILY@0630 [facility] Last Admin: 09/11/16 06:30 Dose: Not Given Lorazepam (Ativan) 2 mg IVP Q6H PRN PRN Reason: Anxiety Pantoprazole Sodium (Protonix Susp) 40 mg PO DAILY [facility] Last Admin: 09/11/16 10:18 Dose: Not Given Rosuvastatin Calcium (Crestor) 10 mg PO HS [facility] Last Admin: 09/10/16 22:01 Dose: 10 mg - Labs Labs: 09/11/16 06:29 09/11/16 06:29 PT 11.4 SECONDS (9.7-12.2) 09/10/16 06:41 INR 1.0 09/10/16 06:41 APTT 25 SECONDS (21-34) D 09/10/16 06:41 - Constitutional Appears: Toxic, Chronically Ill - Head Exam Head Exam: ATRAUMATIC, NORMAL INSPECTION - Neck Exam Neck Exam: Normal Inspection. absent: Tenderness - Respiratory Exam Respiratory Exam: Rhonchi, Respiratory Distress - Cardiovascular Exam Cardiovascular Exam: REGULAR RHYTHM, +S1 - GI/Abdominal Exam GI & Abdominal Exam: Soft. absent: Tenderness - Extremities Exam Extremities Exam: Normal Inspection. absent: Tenderness - Neurological Exam Neurological Exam: Altered, Motor Sensory Deficit - Skin Skin Exam: Dry, Warm Assessment and Plan (1) NSTEMI (non-ST elevation myocardial infarction) Status: Acute (2) Pulmonary edema Status: Acute (3) Acute kidney injury superimposed on CKD Status: Chronic (4) Cardiorenal syndrome with renal failure Status: Acute - Assessment and Plan (Free Text) Plan: Continue dialysis today post cath and in AM Try to UF adequately - try to wean if possible Still fair UO-850ml Labs reviewed- acceptable
--- NOTE | 2016-09-11 13:04 | CP.PCM.PN ---
Subjective - Date & Time of Evaluation Date of Evaluation: 09/11/16 Time of Evaluation: 12:59 - Subjective Subjective: Patient s/p cath 1. L Main: Distal calcific 70% 2. LAD: Mid to distal calcific 80 to 95% calcific stenosis 3. L Cx: [place] calcific 90%, Mid Calcific 80% 4. RCA: Proximal 100% occluded 5. 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 Medical therapy will decide after patient gets extubated and more stable Objective - Vital Signs/Intake and Output Vital Signs (last 24 hours): Temp Pulse Resp BP Pulse Ox 97.4 F L 74 16 130/63 100 09/11/16 08:00 09/11/16 08:00 09/11/16 08:00 09/11/16 08:00 09/11/16 08:00 Intake and Output: 09/11/16 09/11/16 06:59 18:59 Intake Total 701 66 Output Total 515 220 Balance 186 -154 - Medications Medications: Current Medications Albuterol/Ipratropium (Duoneb 3 Mg/0.5 Mg (3 Ml) Ud) 3 ml INH RQ6 [facility] Last Admin: 09/11/16 07:44 Dose: 3 ml Aspirin (Aspirin Chewable) 81 mg PO DAILY [facility] Last Admin: 09/10/16 10:57 Dose: 81 mg Calcium Carbonate (Tums) 500 mg GT BID [facility] Epoetin Dominik (Procrit) 10,000 unit IV TTS [facility] Last Admin: 09/10/16 11:16 Dose: 10,000 unit Heparin Sodium (Porcine) (Heparin) 5,000 units SC Q12 [facility] Last Admin: 09/11/16 10:17 Dose: Not Given Propofol (Diprivan) 100 mls @ 2.16 mls/hr IV .Q24H PRN; Protocol; 5 MCG/KG/MIN PRN Reason: TITRATE PER MD ORDER Last Titration: 09/11/16 09:40 Dose: 35 mcg/kg/min Insulin Aspart (Novolog) 0 unit SC Q6 [facility] PRN Reason: Protocol Last Admin: 09/11/16 06:00 Dose: Not Given Insulin Detemir (Levemir) 30 unit SC BID [facility] Last Admin: 09/11/16 10:36 Dose: 30 unit Levothyroxine Sodium (Synthroid) 50 mcg PO DAILY@0630 [facility] Last Admin: 09/11/16 06:30 Dose: Not Given Lorazepam (Ativan) 2 mg IVP Q6H PRN PRN Reason: Anxiety Pantoprazole Sodium (Protonix Susp) 40 mg PO DAILY [facility] Last Admin: 09/11/16 10:18 Dose: Not Given Rosuvastatin Calcium (Crestor) 10 mg PO HS [facility] Last Admin: 09/10/16 22:01 Dose: 10 mg - Labs Labs: 09/11/16 06:29 09/11/16 06:29 PT 11.4 SECONDS (9.7-12.2) 09/10/16 06:41 INR 1.0 09/10/16 06:41 APTT 25 SECONDS (21-34) D 09/10/16 06:41
--- NOTE | 2016-09-11 13:33 | CP.PCM.PN ---
Subjective - Date & Time of Evaluation Date of Evaluation: 09/11/16 Time of Evaluation: 11:20 - Subjective Subjective: afebrile cxr improving Objective - Vital Signs/Intake and Output Vital Signs (last 24 hours): Temp Pulse Resp BP Pulse Ox 97.4 F L 74 16 130/63 100 09/11/16 08:00 09/11/16 08:00 09/11/16 08:00 09/11/16 08:00 09/11/16 08:00 Intake and Output: 09/11/16 09/11/16 06:59 18:59 Intake Total 701 66 Output Total 515 220 Balance 186 -154 - Medications Medications: Current Medications Albuterol/Ipratropium (Duoneb 3 Mg/0.5 Mg (3 Ml) Ud) 3 ml INH RQ6 [facility] Last Admin: 09/11/16 07:44 Dose: 3 ml Aspirin (Aspirin Chewable) 81 mg PO DAILY [facility] Last Admin: 09/10/16 10:57 Dose: 81 mg Calcium Carbonate (Tums) 500 mg GT BID [facility] Epoetin Dominik (Procrit) 10,000 unit IV TTS [facility] Last Admin: 09/10/16 11:16 Dose: 10,000 unit Heparin Sodium (Porcine) (Heparin) 5,000 units SC Q12 [facility] Last Admin: 09/11/16 10:17 Dose: Not Given Propofol (Diprivan) 100 mls @ 2.16 mls/hr IV .Q24H PRN; Protocol; 5 MCG/KG/MIN PRN Reason: TITRATE PER MD ORDER Last Titration: 09/11/16 09:40 Dose: 35 mcg/kg/min Insulin Aspart (Novolog) 0 unit SC Q6 [facility] PRN Reason: Protocol Last Admin: 09/11/16 06:00 Dose: Not Given Insulin Detemir (Levemir) 30 unit SC BID [facility] Last Admin: 09/11/16 10:36 Dose: 30 unit Levothyroxine Sodium (Synthroid) 50 mcg PO DAILY@0630 [facility] Last Admin: 09/11/16 06:30 Dose: Not Given Lorazepam (Ativan) 2 mg IVP Q6H PRN PRN Reason: Anxiety Pantoprazole Sodium (Protonix Susp) 40 mg PO DAILY [facility] Last Admin: 09/11/16 10:18 Dose: Not Given Rosuvastatin Calcium (Crestor) 10 mg PO HS [facility] Last Admin: 09/10/16 22:01 Dose: 10 mg - Labs Labs: 09/11/16 06:29 09/11/16 06:29 PT 11.4 SECONDS (9.7-12.2) 09/10/16 06:41 INR 1.0 09/10/16 06:41 APTT 25 SECONDS (21-34) D 09/10/16 06:41 - Constitutional Appears: Well - Head Exam Head Exam: ATRAUMATIC, NORMAL INSPECTION, NORMOCEPHALIC - Eye Exam Eye Exam: EOMI, Normal appearance, PERRL Pupil Exam: NORMAL ACCOMODATION, PERRL - ENT Exam ENT Exam: Mucous Membranes Moist, Normal Exam - Neck Exam Neck Exam: Full ROM, Normal Inspection. absent: Lymphadenopathy - Respiratory Exam Respiratory Exam: Decreased Breath Sounds - Cardiovascular Exam Cardiovascular Exam: REGULAR RHYTHM, +S1, +S2 - GI/Abdominal Exam GI & Abdominal Exam: Soft, Diminished Bowel Sounds - Rectal Exam Rectal Exam: Deferred Assessment and Plan - Assessment and Plan (Free Text) Plan: Dr. Matthew vásquez for Catheterisation on Dialysis on Ventilator continue meds as ordered
--- NOTE | 2016-09-11 18:32 | CP.PCM.PN ---
Subjective - Date & Time of Evaluation Date of Evaluation: 09/11/16 Time of Evaluation: 09:00 - Subjective Subjective: Patient is currently intubated on PVRC: FiO2 70, PEEP 10, RR 16, Tvolume 450 saturating at 100%. s/p cardiac cath wbc trending up pancultured Objective - Vital Signs/Intake and Output Vital Signs (last 24 hours): Temp Pulse Resp BP Pulse Ox 98 F 89 17 116/67 100 09/11/16 16:04 09/11/16 18:00 09/11/16 18:00 09/11/16 18:00 09/11/16 18:00 Intake and Output: 09/11/16 09/11/16 06:59 18:59 Intake Total 701 155 Output Total 515 615 Balance 186 -460 - Medications Medications: Current Medications Albuterol/Ipratropium (Duoneb 3 Mg/0.5 Mg (3 Ml) Ud) 3 ml INH RQ6 [facility] Last Admin: 09/11/16 14:13 Dose: 3 ml Aspirin (Aspirin Chewable) 81 mg PO DAILY [facility] Last Admin: 09/11/16 14:11 Dose: 81 mg Calcium Carbonate (Tums) 500 mg GT BID [facility] Epoetin Dominik (Procrit) 10,000 unit IV TTS [facility] Last Admin: 09/10/16 11:16 Dose: 10,000 unit Heparin Sodium (Porcine) (Heparin) 5,000 units SC Q12 [facility] Last Admin: 09/11/16 10:17 Dose: Not Given Propofol (Diprivan) 100 mls @ 2.16 mls/hr IV .Q24H PRN; Protocol; 5 MCG/KG/MIN PRN Reason: TITRATE PER MD ORDER Last Titration: 09/11/16 15:15 Dose: 20 mcg/kg/min Insulin Aspart (Novolog) 0 unit SC Q6 [facility] PRN Reason: Protocol Last Admin: 09/11/16 12:00 Dose: Not Given Insulin Detemir (Levemir) 30 unit SC BID [facility] Last Admin: 09/11/16 10:36 Dose: 30 unit Levothyroxine Sodium (Synthroid) 50 mcg PO DAILY@0630 [facility] Last Admin: 09/11/16 06:30 Dose: Not Given Lorazepam (Ativan) 2 mg IVP Q6H PRN PRN Reason: Anxiety Pantoprazole Sodium (Protonix Susp) 40 mg PO DAILY [facility] Last Admin: 09/11/16 10:18 Dose: Not Given Rosuvastatin Calcium (Crestor) 10 mg PO HS [facility] Last Admin: 09/10/16 22:01 Dose: 10 mg - Labs Labs: 09/11/16 06:29 09/11/16 06:29 PT 11.4 SECONDS (9.7-12.2) 09/10/16 06:41 INR 1.0 09/10/16 06:41 APTT 25 SECONDS (21-34) D 09/10/16 06:41 - Constitutional Appears: Cachectic, Chronically Ill - Head Exam Head Exam: NORMOCEPHALIC - Eye Exam Eye Exam: absent: Scleral icterus - ENT Exam ENT Exam: Mucous Membranes Dry - Neck Exam Neck Exam: absent: Lymphadenopathy - Respiratory Exam Respiratory Exam: Decreased Breath Sounds, Rhonchi - Cardiovascular Exam Cardiovascular Exam: REGULAR RHYTHM, +S1, +S2 - GI/Abdominal Exam GI & Abdominal Exam: Distended, Soft - Rectal Exam Rectal Exam: Deferred Assessment and Plan (1) Cardiorenal syndrome with renal failure Status: Acute (2) NSTEMI (non-ST elevation myocardial infarction) Status: Acute (3) Pulmonary edema Status: Acute (4) Respiratory failure with hypoxia Status: Acute (5) DVT prophylaxis Status: Acute (6) Renal failure Status: Acute (7) Syncope Status: Acute (8) Acute kidney injury superimposed on CKD Status: Chronic
[2016-09-11] MEDS: Calcium Carbonate 500 mg Chewable Antacid Tab GT SCH (18:35)
[2016-09-12] MEDS: (Novolog) Insulin Aspart, Recombinant 100 u/ml 10 ml vial SC SCH ×5 (00:13→23:15)
[2016-09-12] MEDS: Albuterol-Ipratrop 3 mg / 0.5 (3 ml) UD INH SCH ×4 (01:16→19:27)
[2016-09-12 04:28] LABS: ABG ALLEN TEST POS; ABG MECHANICAL RATE 16; ARTERIAL BLOOD HGB O2 SAT 96.7 % (95.0-98.0); ATERIAL BLOOD GAS PEEP 10; CARBOXYHEMOGLOBIN 1.4 % (0.5-1.5); DRAW SITE RR; HHB 0.8 % (0.0-5.0); METHEMOGLOBIN 1.2 % (0.0-3.0)
[2016-09-12] MEDS: Levothyroxine 50 MCG TAB PO SCH (05:33)
[2016-09-12 06:31] LABS: BASO % 0.2 % (0.0-2.0); EOS # 0.4 K/uL (0.0-0.7); EOS % 2.8 % (0.0-4.0); HEMATOCRIT 29.5 % (35.0-51.0); LYMPH # 1.1 K/uL (1.0-4.3); LYMPH % 8.9 % (20.0-40.0); MEAN CELL VOLUME 93.2 fL (80.0-94.0); MEAN CORPUSCULAR HEMOGLOBIN 31.6 pg (27.0-31.0); MEAN CORPUSCULAR HGB CONC 33.9 g/dL (33.0-37.0); MEAN PLATELET VOLUME 9.5 fL (7.2-11.7); MONO # 1.2 K/uL (0.0-0.8); MONO % 9.2 % (0.0-10.0); NRBC % 0.3 % (0.0-2.0); PLATELET COUNT 187 K/uL (130-400); RED CELL DISTRIBUTION WIDTH 13.8 % (11.5-14.5); WHITE BLOOD COUNT 12.7 K/uL (4.8-10.8)
[2016-09-12 06:47] LABS: POTASSIUM 3.7 mmol/L (3.6-5.2)
[2016-09-12 06:49] LABS: TOTAL PROTEIN 5.5 g/dL (6.3-8.3)
[2016-09-12 06:50] LABS: CALCIUM 6.8 mg/dl (8.6-10.4); MAGNESIUM 2.6 mg/dL (1.6-2.3); PHOSPHOROUS 3.7 mg/dL (2.5-4.5)
[2016-09-12 08:19] LABS: EOSINOPHIL 1 % (0-4); NEUTROPHIL 87 % (50-75); NUCLEATED RED BLOOD CELL 1 % (0-0); TOTAL CELLS COUNTED 100
[2016-09-12 08:20] LABS: LARGE PLATELETS PRESENT
--- NOTE | 2016-09-12 08:29 | CP.PCM.PN ---
Subjective - Date & Time of Evaluation Date of Evaluation: 09/12/16 Time of Evaluation: 08:25 - Subjective Subjective: intubated sedated ROS unable to obtain see above Objective - Vital Signs/Intake and Output Vital Signs (last 24 hours): Temp Pulse Resp BP Pulse Ox 99 F 94 H 16 148/70 100 09/12/16 04:00 09/12/16 07:00 09/12/16 07:00 09/12/16 06:28 09/12/16 07:00 Intake and Output: 09/12/16 09/12/16 06:59 18:59 Intake Total 887.5 54.4 Output Total 425 30 Balance 462.5 24.4 - Medications Medications: Current Medications Albuterol/Ipratropium (Duoneb 3 Mg/0.5 Mg (3 Ml) Ud) 3 ml INH RQ6 [facility] Last Admin: 09/12/16 07:53 Dose: 3 ml Aspirin (Aspirin Chewable) 81 mg PO DAILY [facility] Last Admin: 09/11/16 14:11 Dose: 81 mg Calcium Carbonate (Tums) 500 mg GT BID [facility] Last Admin: 09/11/16 18:35 Dose: 500 mg Epoetin Dominik (Procrit) 10,000 unit IV TTS [facility] Last Admin: 09/10/16 11:16 Dose: 10,000 unit Heparin Sodium (Porcine) (Heparin) 5,000 units SC Q12 [facility] Last Admin: 09/11/16 21:10 Dose: 5,000 units Propofol (Diprivan) 100 mls @ 2.16 mls/hr IV .Q24H PRN; Protocol; 5 MCG/KG/MIN PRN Reason: TITRATE PER MD ORDER Last Admin: 09/12/16 04:57 Dose: 4.319 mls/hr Insulin Aspart (Novolog) 0 unit SC Q6 [facility] PRN Reason: Protocol Last Admin: 09/12/16 06:43 Dose: 4 unit Insulin Detemir (Levemir) 30 unit SC BID [facility] Last Admin: 09/11/16 18:36 Dose: 30 unit Levothyroxine Sodium (Synthroid) 50 mcg PO DAILY@0630 [facility] Last Admin: 09/12/16 05:33 Dose: 50 mcg Lorazepam (Ativan) 2 mg IVP Q6H PRN PRN Reason: Anxiety Pantoprazole Sodium (Protonix Susp) 40 mg PO DAILY [facility] Last Admin: 09/11/16 10:18 Dose: Not Given Rosuvastatin Calcium (Crestor) 10 mg PO HS [facility] Last Admin: 09/11/16 21:10 Dose: 10 mg - Labs Labs: 09/12/16 06:21 09/12/16 06:21 PT 11.4 SECONDS (9.7-12.2) 09/10/16 06:41 INR 1.0 09/10/16 06:41 APTT 25 SECONDS (21-34) D 09/10/16 06:41 - Constitutional Appears: No Acute Distress - Head Exam Additional comments: intubated sedated - Respiratory Exam Respiratory Exam: Clear to Ausculation Bilateral - Cardiovascular Exam Cardiovascular Exam: REGULAR RHYTHM. absent: JVD - GI/Abdominal Exam GI & Abdominal Exam: Soft. absent: Tenderness - Extremities Exam Extremities Exam: Pedal Edema - Psychiatric Exam Psychiatric exam: absent: Agitated Assessment and Plan (1) NSTEMI (non-ST elevation myocardial infarction) Status: Acute (2) Pulmonary edema Status: Acute (3) Respiratory failure with hypoxia Status: Acute (4) Acute kidney injury superimposed on CKD Status: Chronic (5) DM2 (diabetes mellitus, type 2) Status: Chronic (6) HTN (hypertension) Status: Chronic - Assessment and Plan (Free Text) Plan: schedule dialysis again today continue to try to ultrafiltrate
[2016-09-12] MEDS: Insulin Detemir 100 units/ml Vial (Levemir) SC SCH ×2 (09:50→18:24)
[2016-09-12] MEDS: Calcium Carbonate 500 mg Chewable Antacid Tab GT SCH ×2 (09:51→18:24)
[2016-09-12] MEDS: Pantoprazole 40 mg Susp UD PO SCH (09:51)
[2016-09-12] MEDS: Epoetin Alfa 10,000 unit/ml Dialysis IV SCH (09:52)
--- NOTE | 2016-09-12 10:25 | RAD ---
HISTORY: ARDS, possible PNA COMPARISON: Chest x-ray performed 09/11/16 TECHNIQUE: Chest, one view. FINDINGS: Tip of the endotracheal tube terminates approximately 4.8 cm above the level of the kecia. Nasogastric tube extends expected location of the stomach. Right-sided PICC extends to the cavoatrial junction. LUNGS: Pulmonary venous congestion. Left basilar atelectasis or infiltrate and small pleural effusion. Right basilar atelectasis. No definite pneumothorax. Please note that chest x-ray has limited sensitivity for the detection of pulmonary masses. CARDIOVASCULAR: Heart size appears top normal. OSSEOUS STRUCTURES: Osseous demineralization. Degenerative changes of the spine and shoulders. Acromioclavicular arthropathy. VISUALIZED UPPER ABDOMEN: Unremarkable. OTHER FINDINGS: None. IMPRESSION: Support lines and tubes as above. Pulmonary venous congestion. Left basilar atelectasis or infiltrate and small pleural effusion. Right basilar atelectasis.
--- NOTE | 2016-09-12 10:30 | CP.PCM.PN ---
Subjective - Date & Time of Evaluation Date of Evaluation: 09/12/16 Time of Evaluation: 11:40 - Subjective Subjective: catheterisation done afebrile Objective - Vital Signs/Intake and Output Vital Signs (last 24 hours): Temp Pulse Resp BP Pulse Ox 98.5 F 96 H 14 155/67 H 100 09/12/16 08:00 09/12/16 09:00 09/12/16 09:00 09/12/16 08:28 09/12/16 09:00 Intake and Output: 09/12/16 09/12/16 06:59 18:59 Intake Total 887.5 158.8 Output Total 425 90 Balance 462.5 68.8 - Medications Medications: Current Medications Albuterol/Ipratropium (Duoneb 3 Mg/0.5 Mg (3 Ml) Ud) 3 ml INH RQ6 [facility] Last Admin: 09/12/16 07:53 Dose: 3 ml Aspirin (Aspirin Chewable) 81 mg PO DAILY [facility] Last Admin: 09/12/16 09:51 Dose: 81 mg Calcium Carbonate (Tums) 500 mg GT BID [facility] Last Admin: 09/12/16 09:51 Dose: 500 mg Epoetin Dominik (Procrit) 10,000 unit IV TTS [facility] Last Admin: 09/12/16 09:52 Dose: 10,000 unit Heparin Sodium (Porcine) (Heparin) 5,000 units SC Q12 [facility] Last Admin: 09/12/16 09:51 Dose: 5,000 units Propofol (Diprivan) 100 mls @ 2.16 mls/hr IV .Q24H PRN; Protocol; 5 MCG/KG/MIN PRN Reason: TITRATE PER MD ORDER Last Admin: 09/12/16 04:57 Dose: 4.319 mls/hr Insulin Aspart (Novolog) 0 unit SC Q6 [facility] PRN Reason: Protocol Last Admin: 09/12/16 06:43 Dose: 4 unit Insulin Detemir (Levemir) 30 unit SC BID [facility] Last Admin: 09/12/16 09:50 Dose: 30 unit Levothyroxine Sodium (Synthroid) 50 mcg PO DAILY@0630 [facility] Last Admin: 09/12/16 05:33 Dose: 50 mcg Lorazepam (Ativan) 2 mg IVP Q6H PRN PRN Reason: Anxiety Pantoprazole Sodium (Protonix Susp) 40 mg PO DAILY [facility] Last Admin: 09/12/16 09:51 Dose: 40 mg Rosuvastatin Calcium (Crestor) 10 mg PO HS [facility] Last Admin: 09/11/16 21:10 Dose: 10 mg - Labs Labs: 09/12/16 06:21 09/12/16 06:21 PT 11.4 SECONDS (9.7-12.2) 09/10/16 06:41 INR 1.0 09/10/16 06:41 APTT 25 SECONDS (21-34) D 09/10/16 06:41 - Constitutional Appears: Well - Head Exam Head Exam: ATRAUMATIC, NORMAL INSPECTION, NORMOCEPHALIC - Eye Exam Eye Exam: EOMI, Normal appearance, PERRL Pupil Exam: NORMAL ACCOMODATION, PERRL - ENT Exam ENT Exam: Mucous Membranes Moist, Normal Exam - Neck Exam Neck Exam: Full ROM, Normal Inspection. absent: Lymphadenopathy - Respiratory Exam Respiratory Exam: Decreased Breath Sounds - Cardiovascular Exam Cardiovascular Exam: REGULAR RHYTHM, +S1, +S2 - GI/Abdominal Exam GI & Abdominal Exam: Soft, Diminished Bowel Sounds - Rectal Exam Rectal Exam: Deferred Assessment and Plan - Assessment and Plan (Free Text) Plan: f/u Dr. whitehead for post cath dialysis dr. vásquez pt is on ventilator continue mx as ordered
--- NOTE | 2016-09-12 13:12 | CP.PCM.PN ---
Subjective - Date & Time of Evaluation Date of Evaluation: 09/12/16 Time of Evaluation: 09:00 - Subjective Subjective: lethargic on vent NAD Objective - Vital Signs/Intake and Output Vital Signs (last 24 hours): Temp Pulse Resp BP Pulse Ox 98.6 F 98 H 20 137/67 99 09/12/16 12:00 09/12/16 12:30 09/12/16 12:30 09/12/16 12:30 09/12/16 12:30 Intake and Output: 09/12/16 09/12/16 06:59 18:59 Intake Total 887.5 308.8 Output Total 425 280 Balance 462.5 28.8 - Medications Medications: Current Medications Albuterol/Ipratropium (Duoneb 3 Mg/0.5 Mg (3 Ml) Ud) 3 ml INH RQ6 [facility] Last Admin: 09/12/16 07:53 Dose: 3 ml Aspirin (Aspirin Chewable) 81 mg PO DAILY [facility] Last Admin: 09/12/16 09:51 Dose: 81 mg Calcium Carbonate (Tums) 500 mg GT BID [facility] Last Admin: 09/12/16 09:51 Dose: 500 mg Epoetin Dominik (Procrit) 10,000 unit IV TTS [facility] Last Admin: 09/12/16 09:52 Dose: 10,000 unit Heparin Sodium (Porcine) (Heparin) 5,000 units SC Q12 [facility] Last Admin: 09/12/16 09:51 Dose: 5,000 units Propofol (Diprivan) 100 mls @ 2.16 mls/hr IV .Q24H PRN; Protocol; 5 MCG/KG/MIN PRN Reason: TITRATE PER MD ORDER Last Admin: 09/12/16 04:57 Dose: 4.319 mls/hr Insulin Aspart (Novolog) 0 unit SC Q6 [facility] PRN Reason: Protocol Last Admin: 09/12/16 11:54 Dose: 2 unit Insulin Detemir (Levemir) 30 unit SC BID [facility] Last Admin: 09/12/16 09:50 Dose: 30 unit Levothyroxine Sodium (Synthroid) 50 mcg PO DAILY@0630 [facility] Last Admin: 09/12/16 05:33 Dose: 50 mcg Lorazepam (Ativan) 2 mg IVP Q6H PRN PRN Reason: Anxiety Pantoprazole Sodium (Protonix Susp) 40 mg PO DAILY [facility] Last Admin: 09/12/16 09:51 Dose: 40 mg Rosuvastatin Calcium (Crestor) 10 mg PO HS [facility] Last Admin: 09/11/16 21:10 Dose: 10 mg - Labs Labs: 09/12/16 06:21 09/12/16 06:21 PT 11.4 SECONDS (9.7-12.2) 09/10/16 06:41 INR 1.0 09/10/16 06:41 APTT 25 SECONDS (21-34) D 09/10/16 06:41 - Constitutional Appears: Non-toxic, Chronically Ill - Head Exam Head Exam: NORMOCEPHALIC - Eye Exam Eye Exam: PERRL Pupil Exam: absent: NORMAL ACCOMODATION - ENT Exam ENT Exam: Mucous Membranes Dry - Neck Exam Neck Exam: absent: Lymphadenopathy - Respiratory Exam Respiratory Exam: Decreased Breath Sounds, Rhonchi - Cardiovascular Exam Cardiovascular Exam: REGULAR RHYTHM, +S1, +S2 - GI/Abdominal Exam GI & Abdominal Exam: Distended, Soft Assessment and Plan (1) Cardiorenal syndrome with renal failure Status: Acute (2) NSTEMI (non-ST elevation myocardial infarction) Status: Acute (3) Pulmonary edema Status: Resolved (4) Respiratory failure with hypoxia Status: Acute (5) DVT prophylaxis Status: Acute (6) Renal failure Status: Acute (7) Syncope Status: Acute (8) Acute kidney injury superimposed on CKD Status: Chronic
--- NOTE | 2016-09-12 14:09 | CP.CCUPN ---
CCU Subjective - Physician Review Events Since Last Encounter (Free Text): 09/12/16 14:04 Alert and following some commands. tolerating PS trials. CCU Objective - Vital Signs / Intake & Output Vital Signs (Last 4 hours): Vital Signs Temp Pulse Pulse Resp BP BP Pulse Ox 09/12/16 13:30 100 H 141/75 99 09/12/16 13:00 101 H 99 H 11 L 151/101 H 147/65 100 09/12/16 12:45 98 H 13 147/65 100 09/12/16 12:38 104 H 17 100 09/12/16 12:30 98 H 98 H 20 137/67 155/66 H 99 09/12/16 12:16 100 H 14 155/68 H 97 09/12/16 12:00 98.6 F 96 H 98 H 13 132/58 L 132/64 98 09/12/16 11:45 94 H 21 133/55 L 97 09/12/16 11:30 97 H 91 H 11 L 148/61 148/61 98 09/12/16 11:15 97.8 F 97 H 96 H 16 135/54 L 135/54 L 100 09/12/16 11:00 94 H 27 H 96 09/12/16 10:28 98 H 18 153/66 H 97 Intake and Output (Last 8hrs): Intake & Output 09/11/16 09/12/16 09/12/16 22:59 06:59 14:59 Intake Total 183 737.5 558.8 Output Total 340 290 280 Balance -157 447.5 278.8 Weight 164 lb Intake: Intake, IV Amount 33 37.5 8.8 Right Proximal Port PICC 33 Right Distal Port PICC 0 37.5 8.8 Left Hand 0 Tube Feeding 150 400 350 Other 300 200 Output: Urine 340 290 280 Urethral (Garza) 340 290 280 Other: # Bowel Movements 1 - Physical Exam Head: Positive for: Atraumatic, Normocephalic Pupils: Positive for: PERRL Extroacular Muscles: Positive for: EOMI Conjunctiva: Positive for: Normal Mouth: Positive for: Moist Mucous Membranes, Other (ET in place) Neck: Positive for: Normal Range of Motion Respiratory/Chest: Positive for: Decreased Breath Sounds Cardiovascular: Positive for: Regular Rate and Rhythm, Normal S1, S2 Abdomen: Positive for: Distention, Normal Bowel Sounds. Negative for: Tenderness Upper Extremity: Positive for: Normal Inspection. Negative for: Cyanosis, Edema Lower Extremity: Positive for: Normal Inspection. Negative for: Edema Neurological: Positive for: GCS=15 Skin: Positive for: Warm, Dry Psychiatric: Positive for: Alert, Oriented x 3, Normal Insight - Medications Active Medications: Active Medications Generic Name Dose Route Start Last Admin Trade Name Freq PRN Reason Stop Dose Admin Albuterol/Ipratropium 3 ml 09/04/16 20:00 09/12/16 13:42 Duoneb 3 Mg/0.5 Mg (3 Ml) Ud INH Not Given RQ6 [facility] Aspirin 81 mg 09/10/16 10:00 09/12/16 09:51 Aspirin Chewable PO 81 mg DAILY [facility] Administration Calcium Carbonate 500 mg 09/11/16 18:00 09/12/16 09:51 Tums GT 500 mg BID [facility] Administration Epoetin Dominik 10,000 unit 09/10/16 11:15 09/12/16 09:52 Procrit IV 10,000 unit TTS [facility] Administration Heparin Sodium (Porcine) 5,000 units 09/10/16 10:00 09/12/16 09:51 Heparin SC 5,000 units Q12 [facility] Administration Propofol 100 mls @ 2.16 mls/hr 09/07/16 14:20 09/12/16 04:57 Diprivan IV 4.319 mls/hr .Q24H PRN Administration TITRATE PER MD ORDER Protocol 5 MCG/KG/MIN Insulin Aspart 0 unit 09/08/16 18:00 09/12/16 11:54 Novolog SC 2 unit Q6 [facility] Administration Protocol Insulin Detemir 30 unit 09/11/16 10:15 09/12/16 09:50 Levemir SC 30 unit BID [facility] Administration Levothyroxine Sodium 50 mcg 09/05/16 06:30 09/12/16 05:33 Synthroid PO 50 mcg DAILY@0630 [facility] Administration Lorazepam 2 mg 09/09/16 19:18 Ativan IVP Q6H PRN Anxiety Pantoprazole Sodium 40 mg 09/08/16 10:15 09/12/16 09:51 Protonix Susp PO 40 mg DAILY [facility] Administration Rosuvastatin Calcium 10 mg 09/04/16 21:15 09/11/16 21:10 Crestor PO 10 mg HS [facility] Administration - Patient Studies Lab Studies: Microbiology Studies 09/11/16 09:30 Urine Culture - Final Urine,Garza No Growth (<1,000 CFU/ML) 09/09/16 22:33 Gram Stain - Final Sputum Sputum Culture - Final NORMAL ORAL SANJUANA 09/11/16 09:30 Blood Culture - Preliminary Blood NO GROWTH AFTER 24 HOURS 09/11/16 09:00 Blood Culture - Preliminary Blood NO GROWTH AFTER 24 HOURS Lab Studies 09/12/16 09/12/16 09/12/16 Range/Units 11:23 06:21 05:47 WBC 12.7 H (4.8-10.8) K/uL RBC 3.17 L (4.40-5.90) Mil/uL Hgb 10.0 L (12.0-18.0) g/dL Hct 29.5 L (35.0-51.0) % MCV 93.2 (80.0-94.0) fL MCH 31.6 H (27.0-31.0) pg MCHC 33.9 (33.0-37.0) g/dL RDW 13.8 (11.5-14.5) % Plt Count 187 (130-400) K/uL MPV 9.5 (7.2-11.7) fL Neut % (Auto) 78.9 H (50.0-75.0) % Lymph % (Auto) 8.9 L (20.0-40.0) % [place] % (Auto) 9.2 (0.0-10.0) % Eos % (Auto) 2.8 (0.0-4.0) % Baso % (Auto) 0.2 (0.0-2.0) % Neut # 10.0 H (1.8-7.0) K/uL Lymph # 1.1 (1.0-4.3) K/uL [place] # 1.2 H (0.0-0.8) K/uL Eos # 0.4 (0.0-0.7) K/uL Baso # 0.0 (0.0-0.2) K/uL Neutrophils % (Manual) 87 H (50-75) % Band Neutrophils % 2 (0-2) % Lymphocytes % (Manual) 6 L (20-40) % Monocytes % (Manual) 4 (0-10) % Eosinophils % (Manual) 1 (0-4) % Nucleated RBC % 1 H (0-0) % Platelet Estimate Normal (NORMAL) Large Platelets Present Polychromasia Slight Hypochromasia (manual) Slight Basophilic Stippling Slight Anisocytosis (manual) Slight Puncture Site pCO2 (35-45) mm/Hg pO2 (80-100) mm/Hg HCO3 (21-28) mmol/L ABG pH (7.35-7.45) ABG Total CO2 (22-28) mmol/L ABG O2 Saturation (95-98) % ABG Base Excess (-2.0-3.0) mmol/L ABG Hemoglobin (11.7-17.4) g/dL ABG Carboxyhemoglobin (0.5-1.5) % POC ABG HHb (Measured) (0.0-5.0) % ABG Methemoglobin (0.0-3.0) % Tejinder Test A-a O2 Difference mm/Hg Respiratory Index Hgb O2 Saturation (95.0-98.0) % Mechanical Rate FiO2 % Tidal Volume PEEP Sodium 137 (132-148) mmol/L Potassium 3.7 (3.6-5.2) mmol/L Chloride 97 L (98-107) mmol/L Carbon Dioxide 30 (22-30) mmol/L Anion Gap 14 (10-20) BUN 66 H (9-20) mg/dL Creatinine 2.2 H (0.8-1.5) MG/DL Est GFR ( Amer) 35 Est GFR (Non-Af Amer) 29 POC Glucose (mg/dL) 180 H 206 H (65-110) mg/dL Random Glucose 179 H (75-110) mg/dL Lactic Acid 0.7 (0.7-2.1) mmol/L Calcium 6.8 L (8.6-10.4) mg/dl Phosphorus 3.7 (2.5-4.5) mg/dL Magnesium 2.6 H (1.6-2.3) mg/dL Total Bilirubin 1.0 (0.2-1.3) mg/dL AST 29 (17-59) U/L ALT 45 (21-72) U/L Alkaline Phosphatase 87 (38-126) U/L Total Protein 5.5 L (6.3-8.3) g/dL Albumin 2.8 L (3.5-5.0) g/dL Globulin 2.7 (2.2-3.9) gm/dL Albumin/Globulin Ratio 1.0 (1.0-2.1) Procalcitonin (0.19-0.49) NG/ML 09/12/16 09/11/16 09/11/16 Range/Units 04:20 23:34 17:55 WBC (4.8-10.8) K/uL RBC (4.40-5.90) Mil/uL Hgb (12.0-18.0) g/dL Hct (35.0-51.0) % MCV (80.0-94.0) fL MCH (27.0-31.0) pg MCHC (33.0-37.0) g/dL RDW (11.5-14.5) % Plt Count (130-400) K/uL MPV (7.2-11.7) fL Neut % (Auto) (50.0-75.0) % Lymph % (Auto) (20.0-40.0) % [place] % (Auto) (0.0-10.0) % Eos % (Auto) (0.0-4.0) % Baso % (Auto) (0.0-2.0) % Neut # (1.8-7.0) K/uL Lymph # (1.0-4.3) K/uL [place] # (0.0-0.8) K/uL Eos # (0.0-0.7) K/uL Baso # (0.0-0.2) K/uL Neutrophils % (Manual) (50-75) % Band Neutrophils % (0-2) % Lymphocytes % (Manual) (20-40) % Monocytes % (Manual) (0-10) % Eosinophils % (Manual) (0-4) % Nucleated RBC % (0-0) % Platelet Estimate (NORMAL) Large Platelets Polychromasia Hypochromasia (manual) Basophilic Stippling Anisocytosis (manual) Puncture Site Rr pCO2 35 (35-45) mm/Hg pO2 156 H (80-100) mm/Hg HCO3 27.5 (21-28) mmol/L ABG pH 7.49 H (7.35-7.45) ABG Total CO2 27.8 (22-28) mmol/L ABG O2 Saturation 99.2 H (95-98) % ABG Base Excess 3.3 H (-2.0-3.0) mmol/L ABG Hemoglobin 9.6 L (11.7-17.4) g/dL ABG Carboxyhemoglobin 1.4 (0.5-1.5) % POC ABG HHb (Measured) 0.8 (0.0-5.0) % ABG Methemoglobin 1.2 (0.0-3.0) % Tejinder Test Pos A-a O2 Difference 157.0 mm/Hg Respiratory Index 1.0 Hgb O2 Saturation 96.7 (95.0-98.0) % Mechanical Rate 16 FiO2 50.0 % Tidal Volume 450 PEEP 10 Sodium (132-148) mmol/L Potassium (3.6-5.2) mmol/L Chloride (98-107) mmol/L Carbon Dioxide (22-30) mmol/L Anion Gap (10-20) BUN (9-20) mg/dL Creatinine (0.8-1.5) MG/DL Est GFR ( Amer) Est GFR (Non-Af Amer) POC Glucose (mg/dL) 143 H 137 H (65-110) mg/dL Random Glucose (75-110) mg/dL Lactic Acid (0.7-2.1) mmol/L Calcium (8.6-10.4) mg/dl Phosphorus (2.5-4.5) mg/dL Magnesium (1.6-2.3) mg/dL Total Bilirubin (0.2-1.3) mg/dL AST (17-59) U/L ALT (21-72) U/L Alkaline Phosphatase (38-126) U/L Total Protein (6.3-8.3) g/dL Albumin (3.5-5.0) g/dL Globulin (2.2-3.9) gm/dL Albumin/Globulin Ratio (1.0-2.1) Procalcitonin (0.19-0.49) NG/ML 09/11/16 Range/Units 09:42 WBC (4.8-10.8) K/uL RBC (4.40-5.90) Mil/uL Hgb (12.0-18.0) g/dL Hct (35.0-51.0) % MCV (80.0-94.0) fL MCH (27.0-31.0) pg MCHC (33.0-37.0) g/dL RDW (11.5-14.5) % Plt Count (130-400) K/uL MPV (7.2-11.7) fL Neut % (Auto) (50.0-75.0) % Lymph % (Auto) (20.0-40.0) % [place] % (Auto) (0.0-10.0) % Eos % (Auto) (0.0-4.0) % Baso % (Auto) (0.0-2.0) % Neut # (1.8-7.0) K/uL Lymph # (1.0-4.3) K/uL [place] # (0.0-0.8) K/uL Eos # (0.0-0.7) K/uL Baso # (0.0-0.2) K/uL Neutrophils % (Manual) (50-75) % Band Neutrophils % (0-2) % Lymphocytes % (Manual) (20-40) % Monocytes % (Manual) (0-10) % Eosinophils % (Manual) (0-4) % Nucleated RBC % (0-0) % Platelet Estimate (NORMAL) Large Platelets Polychromasia Hypochromasia (manual) Basophilic Stippling Anisocytosis (manual) Puncture Site pCO2 (35-45) mm/Hg pO2 (80-100) mm/Hg HCO3 (21-28) mmol/L ABG pH (7.35-7.45) ABG Total CO2 (22-28) mmol/L ABG O2 Saturation (95-98) % ABG Base Excess (-2.0-3.0) mmol/L ABG Hemoglobin (11.7-17.4) g/dL ABG Carboxyhemoglobin (0.5-1.5) % POC ABG HHb (Measured) (0.0-5.0) % ABG Methemoglobin (0.0-3.0) % Tejinder Test A-a O2 Difference mm/Hg Respiratory Index Hgb O2 Saturation (95.0-98.0) % Mechanical Rate FiO2 % Tidal Volume PEEP Sodium (132-148) mmol/L Potassium (3.6-5.2) mmol/L Chloride (98-107) mmol/L Carbon Dioxide (22-30) mmol/L Anion Gap (10-20) BUN (9-20) mg/dL Creatinine (0.8-1.5) MG/DL Est GFR ( Amer) Est GFR (Non-Af Amer) POC Glucose (mg/dL) (65-110) mg/dL Random Glucose (75-110) mg/dL Lactic Acid (0.7-2.1) mmol/L Calcium (8.6-10.4) mg/dl Phosphorus (2.5-4.5) mg/dL Magnesium (1.6-2.3) mg/dL Total Bilirubin (0.2-1.3) mg/dL AST (17-59) U/L ALT (21-72) U/L Alkaline Phosphatase (38-126) U/L Total Protein (6.3-8.3) g/dL Albumin (3.5-5.0) g/dL Globulin (2.2-3.9) gm/dL Albumin/Globulin Ratio (1.0-2.1) Procalcitonin 0.45 (0.19-0.49) NG/ML Laboratory Results - last 24 hr 09/11/16 09/11/16 09/11/16 09:42 17:55 23:34 WBC RBC Hgb Hct MCV MCH MCHC RDW Plt Count MPV Neut % (Auto) Lymph % (Auto) [place] % (Auto) Eos % (Auto) Baso % (Auto) Neut # Lymph # [place] # Eos # Baso # Neutrophils % (Manual) Band Neutrophils % Lymphocytes % (Manual) Monocytes % (Manual) Eosinophils % (Manual) Nucleated RBC % Platelet Estimate Large Platelets Polychromasia Hypochromasia (manual) Basophilic Stippling Anisocytosis (manual) Puncture Site pCO2 pO2 HCO3 ABG pH ABG Total CO2 ABG O2 Saturation ABG Base Excess ABG Hemoglobin ABG Carboxyhemoglobin POC ABG HHb (Measured) ABG Methemoglobin Tejinder Test A-a O2 Difference Respiratory Index Hgb O2 Saturation Mechanical Rate FiO2 Tidal Volume PEEP Sodium Potassium Chloride Carbon Dioxide Anion Gap BUN Creatinine Est GFR ( Amer) Est GFR (Non-Af Amer) POC Glucose (mg/dL) 137 H 143 H Random Glucose Lactic Acid Calcium Phosphorus Magnesium Total Bilirubin AST ALT Alkaline Phosphatase Total Protein Albumin Globulin Albumin/Globulin Ratio Procalcitonin 0.45 09/12/16 09/12/16 09/12/16 04:20 05:47 06:21 WBC 12.7 H RBC 3.17 L Hgb 10.0 L Hct 29.5 L MCV 93.2 MCH 31.6 H MCHC 33.9 RDW 13.8 Plt Count 187 MPV 9.5 Neut % (Auto) 78.9 H Lymph % (Auto) 8.9 L [place] % (Auto) 9.2 Eos % (Auto) 2.8 Baso % (Auto) 0.2 Neut # 10.0 H Lymph # 1.1 [place] # 1.2 H Eos # 0.4 Baso # 0.0 Neutrophils % (Manual) 87 H Band Neutrophils % 2 Lymphocytes % (Manual) 6 L Monocytes % (Manual) 4 Eosinophils % (Manual) 1 Nucleated RBC % 1 H Platelet Estimate Normal Large Platelets Present Polychromasia Slight Hypochromasia (manual) Slight Basophilic Stippling Slight Anisocytosis (manual) Slight Puncture Site Rr pCO2 35 pO2 156 H HCO3 27.5 ABG pH 7.49 H ABG Total CO2 27.8 ABG O2 Saturation 99.2 H ABG Base Excess 3.3 H ABG Hemoglobin 9.6 L ABG Carboxyhemoglobin 1.4 POC ABG HHb (Measured) 0.8 ABG Methemoglobin 1.2 Tejinder Test Pos A-a O2 Difference 157.0 Respiratory Index 1.0 Hgb O2 Saturation 96.7 Mechanical Rate 16 FiO2 50.0 Tidal Volume 450 PEEP 10 Sodium 137 Potassium 3.7 Chloride 97 L Carbon Dioxide 30 Anion Gap 14 BUN 66 H Creatinine 2.2 H Est GFR ( Amer) 35 Est GFR (Non-Af Amer) 29 POC Glucose (mg/dL) 206 H Random Glucose 179 H Lactic Acid 0.7 Calcium 6.8 L Phosphorus 3.7 Magnesium 2.6 H Total Bilirubin 1.0 AST 29 ALT 45 Alkaline Phosphatase 87 Total Protein 5.5 L Albumin 2.8 L Globulin 2.7 Albumin/Globulin Ratio 1.0 Procalcitonin 09/12/16 11:23 WBC RBC Hgb Hct MCV MCH MCHC RDW Plt Count MPV Neut % (Auto) Lymph % (Auto) [place] % (Auto) Eos % (Auto) Baso % (Auto) Neut # Lymph # [place] # Eos # Baso # Neutrophils % (Manual) Band Neutrophils % Lymphocytes % (Manual) Monocytes % (Manual) Eosinophils % (Manual) Nucleated RBC % Platelet Estimate Large Platelets Polychromasia Hypochromasia (manual) Basophilic Stippling Anisocytosis (manual) Puncture Site pCO2 pO2 HCO3 ABG pH ABG Total CO2 ABG O2 Saturation ABG Base Excess ABG Hemoglobin ABG Carboxyhemoglobin POC ABG HHb (Measured) ABG Methemoglobin Tejinder Test A-a O2 Difference Respiratory Index Hgb O2 Saturation Mechanical Rate FiO2 Tidal Volume PEEP Sodium Potassium Chloride Carbon Dioxide Anion Gap BUN Creatinine Est GFR ( Amer) Est GFR (Non-Af Amer) POC Glucose (mg/dL) 180 H Random Glucose Lactic Acid Calcium Phosphorus Magnesium Total Bilirubin AST ALT Alkaline Phosphatase Total Protein Albumin Globulin Albumin/Globulin Ratio Procalcitonin Fingerstick Blood Sugar Results: 180 Review of Systems - Review of Systems Systems not reviewed;Unavailable: Intubated Critical Care Progress Note - Nutrition Nutrition: Nutrition Category Date Time Status NPO Diet [DIET] Diets 09/11/16 Breakfast Active Assessment/Plan (1) Respiratory failure with hypoxia Assessment and plan: Assessment: 81 year old with DM, HTN, CKD, meningeoma, admitted with shortness of breath requiring BiPAP. Pulmonary edema, ARDS, requiring intubation. Elevated troponins , diagnosed with NSTEMI. Plan: Neuro: propofol sedation held. Pulm: Patient intubated due to severe ARDS, currently tolerating PS trials. Hopeful extubation today, will check ABG first. CV: Elevated troponins: NSTEMI ECHO: Left ventricle mildly dilated. Anteroapical and inferoapical hypokinesis. Grade 3 restrictive diastolic dysfunction. Moderate TR, Pulm HTN, MR and mild AR. No pericardial effusion. HLD: Crestor 10mg PO QHS CAD: ASA Plan for Cardiac Catherization with Dr. Garcia 09/11/16: 1. L Main: Distal calcific 70% 2. LAD: Mid to distal calcific 80 to 95% calcific stenosis 3. L Cx: [place] calcific 90%, Mid Calcific 80% 4. RCA: Proximal 100% occluded 5. 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 Garcia will decide after patient gets extubated and is more stable Renal: LUIS EDUARDO on CKD Baseline creatine: 3.0 Procrit 10,000 units TTS Wade catheter placed Dr. Cain consulted - receiving daily dialysis, uncertain of termite treater helper need. Patient making urine Endo: DM: increased to Levemir 30 units BID, ISS - high dose scale Hypothyroidism: 50 mcg PO daily GI: Diabeticsource tube feeding at goal rate of 50cc/hr Protonix 40mg PO daily ID: no acute issues Dr. Price consulted - help appreciated Cheng-cultured, pro-calcitonin F/U DVT Prophylaxis: Heparin 5000 Q12H Medical records retrieved from [facility]: Patient had Carotid dopplers on 05/18/2016 which should Right ICA stenosis of 70-79%. MRA of carotids showed: 50-69% narrowing takeoff of right ICA with a less than 50% narrowing more distally. ECHO done on 08/16/16 showed LVEF: 60-65%. Grade 1 diastolic dysfunction present. Left atrium borderline dilated. Mild AR, TR, moderate AR, MR. Right ventricular systolic pressure is estimated at 46mmHG. Jose (SON) [phone] Crtical Care Time spent 35 minutes Multi-disciplinary rounds were performed with house staff, nursing, speech therapy, respiratory therapy, pharmacy and nutrition with integrated input from the primary team/attending and other consulting services. The documented time is cumulative and includes review of patient data/exams/labs/chart review and examination of the patient on rounds and throughout the day; time is exclusive of any procedures or teaching time. Current Visit: Yes Status: Acute
[2016-09-12 14:45] LABS: ARTERIAL BLOOD HGB O2 SAT 95.5 % (95.0-98.0); ATERIAL BLOOD GAS PEEP 5; CARBOXYHEMOGLOBIN 1.6 % (0.5-1.5); DRAW SITE RRA; HHB 1.9 % (0.0-5.0)
[2016-09-12] MEDS ORDERED: Petrolatum Oint Foilpak (5 gm) TOP PRN (16:15)
--- NOTE | 2016-09-12 18:14 | CP.PCM.PN ---
Subjective - Date & Time of Evaluation Date of Evaluation: 09/12/16 Time of Evaluation: 14:00 - Subjective Subjective: CCU Subjective Patient was seen and examined at bedside. No acute events overnight. Patient is currently intubated on PVRC: FiO2 70, PEEP 10, RR 16, Tvolume 450 saturating at 100%. CCU Objective - Physical Exam Physical Exam Limitations: Positive for: Other (Intubated ) Head: Positive for: Atraumatic, Normocephalic Pupils: Positive for: PERRL Extroacular Muscles: Positive for: EOMI Conjunctiva: Positive for: Normal Mouth: Positive for: Moist Mucous Membranes, Other (ET in place) Neck: Positive for: Normal Range of Motion Respiratory/Chest: Positive for: Decreased Breath Sounds Cardiovascular: Positive for: Regular Rate and Rhythm, Normal S1, S2 Abdomen: Positive for: Distention, Normal Bowel Sounds. Negative for: Tenderness Upper Extremity: Positive for: Normal Inspection. Negative for: Cyanosis, Edema Lower Extremity: Positive for: Normal Inspection. Negative for: Edema Neurological: Positive for: GCS=15 Skin: Positive for: Warm, Dry Psychiatric: Positive for: Alert, Oriented x 3, Normal Insight Objective - Vital Signs/Intake and Output Vital Signs (last 24 hours): Temp Pulse Resp BP Pulse Ox 97 F L 89 17 135/90 98 09/12/16 16:00 09/12/16 17:00 09/12/16 17:00 09/12/16 16:47 09/12/16 17:00 Intake and Output: 09/12/16 09/12/16 06:59 18:59 Intake Total 887.5 653.8 Output Total 425 2250 Balance 462.5 -1596.2 - Medications Medications: Current Medications Albuterol/Ipratropium (Duoneb 3 Mg/0.5 Mg (3 Ml) Ud) 3 ml INH RQ6 [facility] Last Admin: 09/12/16 13:42 Dose: Not Given Aspirin (Aspirin Chewable) 81 mg PO DAILY [facility] Last Admin: 09/12/16 09:51 Dose: 81 mg Calcium Carbonate (Tums) 500 mg GT BID [facility] Last Admin: 09/12/16 09:51 Dose: 500 mg Emollient Ointment (Vaseline Oint) 5 gm TOP BID PRN PRN Reason: Dry skin Epoetin Dominik (Procrit) 10,000 unit IV TTS [facility] Last Admin: 09/12/16 09:52 Dose: 10,000 unit Heparin Sodium (Porcine) (Heparin) 5,000 units SC Q12 [facility] Last Admin: 09/12/16 09:51 Dose: 5,000 units Propofol (Diprivan) 100 mls @ 2.16 mls/hr IV .Q24H PRN; Protocol; 5 MCG/KG/MIN PRN Reason: TITRATE PER MD ORDER Last Admin: 09/12/16 04:57 Dose: 4.319 mls/hr Insulin Aspart (Novolog) 0 unit SC Q6 [facility] PRN Reason: Protocol Last Admin: 09/12/16 11:54 Dose: 2 unit Insulin Detemir (Levemir) 30 unit SC BID [facility] Last Admin: 09/12/16 09:50 Dose: 30 unit Levothyroxine Sodium (Synthroid) 50 mcg PO DAILY@0630 [facility] Last Admin: 09/12/16 05:33 Dose: 50 mcg Lorazepam (Ativan) 2 mg IVP Q6H PRN PRN Reason: Anxiety Pantoprazole Sodium (Protonix Susp) 40 mg PO DAILY [facility] Last Admin: 09/12/16 09:51 Dose: 40 mg Rosuvastatin Calcium (Crestor) 10 mg PO HS [facility] Last Admin: 09/11/16 21:10 Dose: 10 mg - Labs Labs: 09/12/16 06:21 09/12/16 06:21 PT 11.4 SECONDS (9.7-12.2) 09/10/16 06:41 INR 1.0 09/10/16 06:41 APTT 25 SECONDS (21-34) D 09/10/16 06:41 Assessment and Plan - Assessment and Plan (Free Text) Assessment: (1) NSTEMI (non-ST elevation myocardial infarction) Status: Acute L Main and multi vessel calcific CAD High risk Revascularization Vs. Medical therapy To be decided once patient gets extubated and a bit more stable Will d/w Dr. Neely (Primary shell trim operator on the case) (2) s/p Pulmonary edema Status: Acute (3) Respiratory failure with hypoxia Status: Acute On Ventilator (4) Acute kidney injury superimposed on CKD Status: Chronic On HD (5) DM2 (diabetes mellitus, type 2) Status: Chronic Medical mgt (6) HTN (hypertension) Status: Chronic
--- NOTE | 2016-09-12 20:05 | CP.PCM.PN ---
Subjective - Date & Time of Evaluation Date of Evaluation: 09/12/16 Time of Evaluation: 20:40 - Subjective Subjective: Patient seen and examined. Extubated and on BiPAP Awake and responsive Afebrile Status post cardiac cath yesterday Objective - Vital Signs/Intake and Output Vital Signs (last 24 hours): Temp Pulse Resp BP Pulse Ox 97 F L 88 22 126/59 L 100 09/12/16 16:00 09/12/16 19:39 09/12/16 19:00 09/12/16 18:47 09/12/16 19:00 Intake and Output: 09/12/16 09/13/16 18:59 06:59 Intake Total 653.8 Output Total 2280 30 Balance -1626.2 -30 - Medications Medications: Current Medications Albuterol/Ipratropium (Duoneb 3 Mg/0.5 Mg (3 Ml) Ud) 3 ml INH RQ6 [facility] Last Admin: 09/12/16 19:27 Dose: 3 ml Aspirin (Aspirin Chewable) 81 mg PO DAILY [facility] Last Admin: 09/12/16 09:51 Dose: 81 mg Calcium Carbonate (Tums) 500 mg GT BID [facility] Last Admin: 09/12/16 18:24 Dose: Not Given Emollient Ointment (Vaseline Oint) 5 gm TOP BID PRN PRN Reason: Dry skin Epoetin Dominik (Procrit) 10,000 unit IV TTS [facility] Last Admin: 09/12/16 09:52 Dose: 10,000 unit Heparin Sodium (Porcine) (Heparin) 5,000 units SC Q12 [facility] Last Admin: 09/12/16 09:51 Dose: 5,000 units Propofol (Diprivan) 100 mls @ 2.16 mls/hr IV .Q24H PRN; Protocol; 5 MCG/KG/MIN PRN Reason: TITRATE PER MD ORDER Last Admin: 09/12/16 04:57 Dose: 4.319 mls/hr Insulin Aspart (Novolog) 0 unit SC Q6 [facility] PRN Reason: Protocol Last Admin: 09/12/16 18:23 Dose: Not Given Insulin Detemir (Levemir) 30 unit SC BID [facility] Last Admin: 09/12/16 18:24 Dose: Not Given Levothyroxine Sodium (Synthroid) 50 mcg PO DAILY@0630 [facility] Last Admin: 09/12/16 05:33 Dose: 50 mcg Lorazepam (Ativan) 2 mg IVP Q6H PRN PRN Reason: Anxiety Pantoprazole Sodium (Protonix Susp) 40 mg PO DAILY [facility] Last Admin: 09/12/16 09:51 Dose: 40 mg Rosuvastatin Calcium (Crestor) 10 mg PO HS [facility] Last Admin: 09/11/16 21:10 Dose: 10 mg - Labs Labs: 09/12/16 06:21 09/12/16 06:21 PT 11.4 SECONDS (9.7-12.2) 09/10/16 06:41 INR 1.0 09/10/16 06:41 APTT 25 SECONDS (21-34) D 09/10/16 06:41 - Head Exam Head Exam: ATRAUMATIC, NORMOCEPHALIC - Eye Exam Eye Exam: Normal appearance - ENT Exam ENT Exam: Mucous Membranes Moist - Neck Exam Neck Exam: Normal Inspection - Respiratory Exam Respiratory Exam: Decreased Breath Sounds - Cardiovascular Exam Cardiovascular Exam: Irregular Rhythm - GI/Abdominal Exam GI & Abdominal Exam: Soft, Normal Bowel Sounds - Extremities Exam Extremities Exam: Pedal Edema - Neurological Exam Neurological Exam: Awake Assessment and Plan (1) Respiratory failure with hypoxia Assessment & Plan: Extubated and on BiPAP Monitor respiratory status Follow-up chest x-ray and ABG Continue nebulizer treatment and hemodialysis Status: Acute (2) NSTEMI (non-ST elevation myocardial infarction) Assessment & Plan: L Main and multi vessel calcific CAD High risk Revascularization Vs. Medical therapy Status: Acute (3) Acute kidney injury superimposed on CKD Status: Chronic
[2016-09-13] MEDS: Albuterol-Ipratrop 3 mg / 0.5 (3 ml) UD INH SCH ×4 (01:47→19:38)
[2016-09-13] MEDS ORDERED: Dextrose 50% SYRINGE Inj (50 ml) IV STA (05:20)
[2016-09-13] MEDS: (Novolog) Insulin Aspart, Recombinant 100 u/ml 10 ml vial SC SCH ×3 (05:39→23:44)
[2016-09-13] MEDS: Levothyroxine 50 MCG TAB PO SCH (05:40)
[2016-09-13 06:35] LABS: BASO # 0.1 K/uL (0.0-0.2); BASO % 0.4 % (0.0-2.0); EOS # 0.4 K/uL (0.0-0.7); EOS % 2.5 % (0.0-4.0); HEMATOCRIT 30.8 % (35.0-51.0); LYMPH # 1.4 K/uL (1.0-4.3); LYMPH % 9.7 % (20.0-40.0); MEAN CELL VOLUME 93.6 fL (80.0-94.0); MEAN CORPUSCULAR HGB CONC 33.1 g/dL (33.0-37.0); MEAN PLATELET VOLUME 9.9 fL (7.2-11.7); MONO # 1.1 K/uL (0.0-0.8); MONO % 7.7 % (0.0-10.0); NRBC % 0.3 % (0.0-2.0); PLATELET COUNT 189 K/uL (130-400); RED CELL DISTRIBUTION WIDTH 13.8 % (11.5-14.5); WHITE BLOOD COUNT 14.9 K/uL (4.8-10.8)
[2016-09-13 06:48] LABS: POTASSIUM 3.2 mmol/L (3.6-5.2)
[2016-09-13 06:52] LABS: CALCIUM 7.3 mg/dl (8.6-10.4); MAGNESIUM 2.7 mg/dL (1.6-2.3); PHOSPHOROUS 3.6 mg/dL (2.5-4.5)
[2016-09-13 08:34] LABS: EOSINOPHIL 1 % (0-4); NEUTROPHIL 79 % (50-75); TOTAL CELLS COUNTED 100
[2016-09-13 08:38] LABS: LARGE PLATELETS PRESENT
[2016-09-13 08:39] LABS: GIANT PLATELETS PRESENT
[2016-09-13] MEDS ORDERED: Potassium Chloride 20 mEq ER Tab PO ONE (10:00)
--- NOTE | 2016-09-13 10:34 | CP.CCUPN ---
CCU Subjective - Physician Review Events Since Last Encounter (Free Text): 09/13/16 10:33 Patient is 81-year-old male with history of diabetes hypertension chronic renal insufficiency admitted initially to the hospital with the shortness of breath and the fluid overload, condition got complicated, brought into the intensive care unit, intubated and extubated. Patient also developed worsening renal insufficiency, currently on dialysis. Patient got extubated yesterday. He is awake and responding. He was placed on BiPAP. He is not in any distress today. CCU Objective - Vital Signs / Intake & Output Vital Signs (Last 4 hours): Vital Signs Pulse Resp BP Pulse Ox 09/13/16 08:00 79 21 100 09/13/16 07:48 80 20 132/57 L 98 09/13/16 07:47 90 09/13/16 07:00 81 19 99 09/13/16 06:47 82 7 L 140/63 97 Intake and Output (Last 8hrs): Intake & Output 09/12/16 09/13/16 09/13/16 22:59 06:59 14:59 Intake Total 45 50 Output Total 2045 245 125 Balance -1999 Weight 172 lb 8 oz Intake: Intake, IV Amount 50 Right Proximal Port PICC 50 Oral 0 0 Tube Feeding 45 Output: Urine 245 245 125 Urethral (Garza) 245 245 125 Other 1800 Other: # Bowel Movements 1 1 - Physical Exam Narrative Physical Exam (Free Text): 09/13/16 10:33 Chest good air entry bilaterally regular heart sound. Nontender abdomen. Edema 1+. Garza catheter noted. Head: Positive for: Atraumatic, Normocephalic Pupils: Positive for: PERRL Extroacular Muscles: Positive for: EOMI Conjunctiva: Positive for: Normal Mouth: Positive for: Moist Mucous Membranes, Other (ET in place) Neck: Positive for: Normal Range of Motion Respiratory/Chest: Positive for: Decreased Breath Sounds Cardiovascular: Positive for: Regular Rate and Rhythm, Normal S1, S2 Abdomen: Positive for: Distention, Normal Bowel Sounds. Negative for: Tenderness Upper Extremity: Positive for: Normal Inspection. Negative for: Cyanosis, Edema Lower Extremity: Positive for: Normal Inspection. Negative for: Edema Neurological: Positive for: GCS=15 Skin: Positive for: Warm, Dry Psychiatric: Positive for: Alert, Oriented x 3, Normal Insight - Medications Active Medications: Active Medications Generic Name Dose Route Start Last Admin Trade Name Freq PRN Reason Stop Dose Admin Albuterol/Ipratropium 3 ml 09/04/16 20:00 09/13/16 07:46 Duoneb 3 Mg/0.5 Mg (3 Ml) Ud INH 3 ml RQ6 [facility] Administration Aspirin 81 mg 09/10/16 10:00 09/12/16 09:51 Aspirin Chewable PO 81 mg DAILY [facility] Administration Emollient Ointment 5 gm 09/12/16 16:15 Vaseline Oint TOP BID PRN Dry skin Epoetin Dominik 10,000 unit 09/10/16 11:15 09/12/16 09:52 Procrit IV 10,000 unit TTS [facility] Administration Insulin Aspart 0 unit 09/08/16 18:00 09/13/16 05:39 Novolog SC Not Given Q6 [facility] Protocol Insulin Detemir 30 unit 09/11/16 10:15 09/12/16 18:24 Levemir SC Not Given BID [facility] Levothyroxine Sodium 50 mcg 09/05/16 06:30 09/13/16 05:40 Synthroid PO Not Given DAILY@0630 [facility] Pantoprazole Sodium 40 mg 09/08/16 10:15 09/12/16 09:51 Protonix Susp PO 40 mg DAILY [facility] Administration Rosuvastatin Calcium 10 mg 09/04/16 21:15 09/12/16 21:40 Crestor PO Not Given HS [facility] - Patient Studies Lab Studies: Microbiology Studies 09/11/16 09:30 Blood Culture - Preliminary Blood NO GROWTH AFTER 48 HOURS 09/11/16 09:00 Blood Culture - Preliminary Blood NO GROWTH AFTER 48 HOURS 09/11/16 09:30 Urine Culture - Final Urine,Garza No Growth (<1,000 CFU/ML) 09/09/16 22:33 Gram Stain - Final Sputum Sputum Culture - Final NORMAL ORAL SANJUANA Lab Studies 09/13/16 09/13/16 09/13/16 Range/Units 06:32 06:27 05:11 WBC 14.9 H (4.8-10.8) K/uL RBC 3.29 L (4.40-5.90) Mil/uL Hgb 10.2 L (12.0-18.0) g/dL Hct 30.8 L (35.0-51.0) % MCV 93.6 (80.0-94.0) fL MCH 31.0 (27.0-31.0) pg MCHC 33.1 (33.0-37.0) g/dL RDW 13.8 (11.5-14.5) % Plt Count 189 (130-400) K/uL MPV 9.9 (7.2-11.7) fL Neut % (Auto) 79.7 H (50.0-75.0) % Lymph % (Auto) 9.7 L (20.0-40.0) % Mcintosh % (Auto) 7.7 (0.0-10.0) % Eos % (Auto) 2.5 (0.0-4.0) % Baso % (Auto) 0.4 (0.0-2.0) % Neut # 11.9 H (1.8-7.0) K/uL Lymph # 1.4 (1.0-4.3) K/uL Mcintosh # 1.1 H (0.0-0.8) K/uL Eos # 0.4 (0.0-0.7) K/uL Baso # 0.1 (0.0-0.2) K/uL Neutrophils % (Manual) 79 H (50-75) % Band Neutrophils % 4 H (0-2) % Lymphocytes % (Manual) 12 L (20-40) % Monocytes % (Manual) 4 (0-10) % Eosinophils % (Manual) 1 (0-4) % Toxic Granulation Present Platelet Estimate Normal (NORMAL) Large Platelets Present Giant Platelets Present Polychromasia Slight Hypochromasia (manual) Slight Basophilic Stippling Slight Anisocytosis (manual) Slight Puncture Site pCO2 (35-45) mm/Hg pO2 (80-100) mm/Hg HCO3 (21-28) mmol/L ABG pH (7.35-7.45) ABG Total CO2 (22-28) mmol/L ABG O2 Saturation (95-98) % ABG Base Excess (-2.0-3.0) mmol/L ABG Hemoglobin (11.7-17.4) g/dL ABG Carboxyhemoglobin (0.5-1.5) % POC ABG HHb (Measured) (0.0-5.0) % ABG Methemoglobin (0.0-3.0) % Tejinder Test A-a O2 Difference mm/Hg Respiratory Index Hgb O2 Saturation (95.0-98.0) % FiO2 % PEEP Pressure Support Sodium 142 (132-148) mmol/L Potassium 3.2 L (3.6-5.2) mmol/L Chloride 99 (98-107) mmol/L Carbon Dioxide 33 H (22-30) mmol/L Anion Gap 13 (10-20) BUN 52 H (9-20) mg/dL Creatinine 2.0 H (0.8-1.5) MG/DL Est GFR ( Amer) 39 Est GFR (Non-Af Amer) 32 POC Glucose (mg/dL) 197 H 57 L (65-110) mg/dL Random Glucose 45 L (75-110) mg/dL Calcium 7.3 L (8.6-10.4) mg/dl Phosphorus 3.6 (2.5-4.5) mg/dL Magnesium 2.7 H (1.6-2.3) mg/dL 09/12/16 09/12/16 09/12/16 Range/Units 23:13 17:59 14:42 WBC (4.8-10.8) K/uL RBC (4.40-5.90) Mil/uL Hgb (12.0-18.0) g/dL Hct (35.0-51.0) % MCV (80.0-94.0) fL MCH (27.0-31.0) pg MCHC (33.0-37.0) g/dL RDW (11.5-14.5) % Plt Count (130-400) K/uL MPV (7.2-11.7) fL Neut % (Auto) (50.0-75.0) % Lymph % (Auto) (20.0-40.0) % Mcintosh % (Auto) (0.0-10.0) % Eos % (Auto) (0.0-4.0) % Baso % (Auto) (0.0-2.0) % Neut # (1.8-7.0) K/uL Lymph # (1.0-4.3) K/uL Mcintosh # (0.0-0.8) K/uL Eos # (0.0-0.7) K/uL Baso # (0.0-0.2) K/uL Neutrophils % (Manual) (50-75) % Band Neutrophils % (0-2) % Lymphocytes % (Manual) (20-40) % Monocytes % (Manual) (0-10) % Eosinophils % (Manual) (0-4) % Toxic Granulation Platelet Estimate (NORMAL) Large Platelets Giant Platelets Polychromasia Hypochromasia (manual) Basophilic Stippling Anisocytosis (manual) Puncture Site Rra pCO2 42 (35-45) mm/Hg pO2 73 L (80-100) mm/Hg HCO3 29.8 H (21-28) mmol/L ABG pH 7.47 H (7.35-7.45) ABG Total CO2 31.9 H (22-28) mmol/L ABG O2 Saturation 98.0 (95-98) % ABG Base Excess 6.3 H (-2.0-3.0) mmol/L ABG Hemoglobin 10.4 L (11.7-17.4) g/dL ABG Carboxyhemoglobin 1.6 H (0.5-1.5) % POC ABG HHb (Measured) 1.9 (0.0-5.0) % ABG Methemoglobin 1.0 (0.0-3.0) % Tejinder Test Na A-a O2 Difference 160.0 mm/Hg Respiratory Index 2.2 Hgb O2 Saturation 95.5 (95.0-98.0) % FiO2 40.0 % PEEP 5 Pressure Support 10 Sodium (132-148) mmol/L Potassium (3.6-5.2) mmol/L Chloride (98-107) mmol/L Carbon Dioxide (22-30) mmol/L Anion Gap (10-20) BUN (9-20) mg/dL Creatinine (0.8-1.5) MG/DL Est GFR ( Amer) Est GFR (Non-Af Amer) POC Glucose (mg/dL) 100 152 H (65-110) mg/dL Random Glucose (75-110) mg/dL Calcium (8.6-10.4) mg/dl Phosphorus (2.5-4.5) mg/dL Magnesium (1.6-2.3) mg/dL 09/12/16 Range/Units 11:23 WBC (4.8-10.8) K/uL RBC (4.40-5.90) Mil/uL Hgb (12.0-18.0) g/dL Hct (35.0-51.0) % MCV (80.0-94.0) fL MCH (27.0-31.0) pg MCHC (33.0-37.0) g/dL RDW (11.5-14.5) % Plt Count (130-400) K/uL MPV (7.2-11.7) fL Neut % (Auto) (50.0-75.0) % Lymph % (Auto) (20.0-40.0) % Mcintosh % (Auto) (0.0-10.0) % Eos % (Auto) (0.0-4.0) % Baso % (Auto) (0.0-2.0) % Neut # (1.8-7.0) K/uL Lymph # (1.0-4.3) K/uL Mcintosh # (0.0-0.8) K/uL Eos # (0.0-0.7) K/uL Baso # (0.0-0.2) K/uL Neutrophils % (Manual) (50-75) % Band Neutrophils % (0-2) % Lymphocytes % (Manual) (20-40) % Monocytes % (Manual) (0-10) % Eosinophils % (Manual) (0-4) % Toxic Granulation Platelet Estimate (NORMAL) Large Platelets Giant Platelets Polychromasia Hypochromasia (manual) Basophilic Stippling Anisocytosis (manual) Puncture Site pCO2 (35-45) mm/Hg pO2 (80-100) mm/Hg HCO3 (21-28) mmol/L ABG pH (7.35-7.45) ABG Total CO2 (22-28) mmol/L ABG O2 Saturation (95-98) % ABG Base Excess (-2.0-3.0) mmol/L ABG Hemoglobin (11.7-17.4) g/dL ABG Carboxyhemoglobin (0.5-1.5) % POC ABG HHb (Measured) (0.0-5.0) % ABG Methemoglobin (0.0-3.0) % Tejinder Test A-a O2 Difference mm/Hg Respiratory Index Hgb O2 Saturation (95.0-98.0) % FiO2 % PEEP Pressure Support Sodium (132-148) mmol/L Potassium (3.6-5.2) mmol/L Chloride (98-107) mmol/L Carbon Dioxide (22-30) mmol/L Anion Gap (10-20) BUN (9-20) mg/dL Creatinine (0.8-1.5) MG/DL Est GFR ( Amer) Est GFR (Non-Af Amer) POC Glucose (mg/dL) 180 H (65-110) mg/dL Random Glucose (75-110) mg/dL Calcium (8.6-10.4) mg/dl Phosphorus (2.5-4.5) mg/dL Magnesium (1.6-2.3) mg/dL Laboratory Results - last 24 hr 09/12/16 09/12/16 09/12/16 11:23 14:42 17:59 WBC RBC Hgb Hct MCV MCH MCHC RDW Plt Count MPV Neut % (Auto) Lymph % (Auto) Mcintosh % (Auto) Eos % (Auto) Baso % (Auto) Neut # Lymph # Mcintosh # Eos # Baso # Neutrophils % (Manual) Band Neutrophils % Lymphocytes % (Manual) Monocytes % (Manual) Eosinophils % (Manual) Toxic Granulation Platelet Estimate Large Platelets Giant Platelets Polychromasia Hypochromasia (manual) Basophilic Stippling Anisocytosis (manual) Puncture Site Rra pCO2 42 pO2 73 L HCO3 29.8 H ABG pH 7.47 H ABG Total CO2 31.9 H ABG O2 Saturation 98.0 ABG Base Excess 6.3 H ABG Hemoglobin 10.4 L ABG Carboxyhemoglobin 1.6 H POC ABG HHb (Measured) 1.9 ABG Methemoglobin 1.0 Tejidner Test Na A-a O2 Difference 160.0 Respiratory Index 2.2 Hgb O2 Saturation 95.5 FiO2 40.0 PEEP 5 Pressure Support 10 Sodium Potassium Chloride Carbon Dioxide Anion Gap BUN Creatinine Est GFR ( Amer) Est GFR (Non-Af Amer) POC Glucose (mg/dL) 180 H 152 H Random Glucose Calcium Phosphorus Magnesium 09/12/16 09/13/16 09/13/16 23:13 05:11 06:27 WBC 14.9 H RBC 3.29 L Hgb 10.2 L Hct 30.8 L MCV 93.6 MCH 31.0 MCHC 33.1 RDW 13.8 Plt Count 189 MPV 9.9 Neut % (Auto) 79.7 H Lymph % (Auto) 9.7 L Mcintosh % (Auto) 7.7 Eos % (Auto) 2.5 Baso % (Auto) 0.4 Neut # 11.9 H Lymph # 1.4 Mcintosh # 1.1 H Eos # 0.4 Baso # 0.1 Neutrophils % (Manual) 79 H Band Neutrophils % 4 H Lymphocytes % (Manual) 12 L Monocytes % (Manual) 4 Eosinophils % (Manual) 1 Toxic Granulation Present Platelet Estimate Normal Large Platelets Present Giant Platelets Present Polychromasia Slight Hypochromasia (manual) Slight Basophilic Stippling Slight Anisocytosis (manual) Slight Puncture Site pCO2 pO2 HCO3 ABG pH ABG Total CO2 ABG O2 Saturation ABG Base Excess ABG Hemoglobin ABG Carboxyhemoglobin POC ABG HHb (Measured) ABG Methemoglobin Tejinder Test A-a O2 Difference Respiratory Index Hgb O2 Saturation FiO2 PEEP Pressure Support Sodium 142 Potassium 3.2 L Chloride 99 Carbon Dioxide 33 H Anion Gap 13 BUN 52 H Creatinine 2.0 H Est GFR ( Amer) 39 Est GFR (Non-Af Amer) 32 POC Glucose (mg/dL) 100 57 L Random Glucose 45 L Calcium 7.3 L Phosphorus 3.6 Magnesium 2.7 H 09/13/16 06:32 WBC RBC Hgb Hct MCV MCH MCHC RDW Plt Count MPV Neut % (Auto) Lymph % (Auto) Mcintosh % (Auto) Eos % (Auto) Baso % (Auto) Neut # Lymph # Mcintosh # Eos # Baso # Neutrophils % (Manual) Band Neutrophils % Lymphocytes % (Manual) Monocytes % (Manual) Eosinophils % (Manual) Toxic Granulation Platelet Estimate Large Platelets Giant Platelets Polychromasia Hypochromasia (manual) Basophilic Stippling Anisocytosis (manual) Puncture Site pCO2 pO2 HCO3 ABG pH ABG Total CO2 ABG O2 Saturation ABG Base Excess ABG Hemoglobin ABG Carboxyhemoglobin POC ABG HHb (Measured) ABG Methemoglobin Tejinder Test A-a O2 Difference Respiratory Index Hgb O2 Saturation FiO2 PEEP Pressure Support Sodium Potassium Chloride Carbon Dioxide Anion Gap BUN Creatinine Est GFR ( Amer) Est GFR (Non-Af Amer) POC Glucose (mg/dL) 197 H Random Glucose Calcium Phosphorus Magnesium Fingerstick Blood Sugar Results: 57 Review of Systems - Review of Systems All systems: reviewed and no additional remarkable complaints except Review of Systems: Awake and responding. Garza catheter. On BiPAP Critical Care Progress Note - Nutrition Nutrition: Nutrition Category Date Time Status NPO Diet [DIET] Diets 09/11/16 Breakfast Active Assessment/Plan (1) Cardiorenal syndrome with renal failure Assessment and plan: patient with the acute respiratory failure, acute renal failure, and acute non- ST elevation [place]. Multiorgan failure. Improved markedly. Currently doing well. Out of bed to chair. Nasal cannula. Discontinue Garza catheter. If stable can be discharged to medical floor. Current Visit: Yes Status: Acute (2) NSTEMI (non-ST elevation myocardial infarction) Current Visit: Yes Status: Acute (3) Respiratory failure with hypoxia Current Visit: Yes Status: Acute
--- NOTE | 2016-09-13 20:33 | CP.PCM.PN ---
Subjective - Date & Time of Evaluation Date of Evaluation: 09/13/16 Time of Evaluation: 13:10 - Subjective Subjective: CCU Subjective Patient was seen and examined at bedside. Extubated and comfortable CCU Objective - Physical Exam Physical Exam Limitations: Positive for: Other (Intubated ) Head: Positive for: Atraumatic, Normocephalic Pupils: Positive for: PERRL Extroacular Muscles: Positive for: EOMI Conjunctiva: Positive for: Normal Mouth: Positive for: Moist Mucous Membranes, Other (ET in place) Neck: Positive for: Normal Range of Motion Respiratory/Chest: Positive for: Decreased Breath Sounds Cardiovascular: Positive for: Regular Rate and Rhythm, Normal S1, S2 Abdomen: Positive for: Distention, Normal Bowel Sounds. Negative for: Tenderness Upper Extremity: Positive for: Normal Inspection. Negative for: Cyanosis, Edema Lower Extremity: Positive for: Normal Inspection. Negative for: Edema Neurological: Positive for: GCS=15 Skin: Positive for: Warm, Dry Psychiatric: Positive for: Alert, Oriented x 2, Normal Insight Objective - Vital Signs/Intake and Output Vital Signs (last 24 hours): Temp Pulse Resp BP Pulse Ox 97.1 F L 84 14 152/67 H 94 L 09/13/16 16:00 09/13/16 19:00 09/13/16 19:00 09/13/16 18:47 09/13/16 19:00 Intake and Output: 09/13/16 09/14/16 18:59 06:59 Intake Total 240 30 Output Total 605 Balance -365 30 - Medications Medications: Current Medications Albuterol/Ipratropium (Duoneb 3 Mg/0.5 Mg (3 Ml) Ud) 3 ml INH RQ6 [facility] Last Admin: 09/13/16 19:38 Dose: 3 ml Aspirin (Aspirin Supp) 300 mg SD DAILY [facility] Last Admin: 09/13/16 11:29 Dose: 300 mg Emollient Ointment (Vaseline Oint) 5 gm TOP BID PRN PRN Reason: Dry skin Epoetin Dominik (Procrit) 10,000 unit IV TTS [facility] Last Admin: 09/12/16 09:52 Dose: 10,000 unit Dextrose (Dextrose 10% In Water) 500 mls @ 30 mls/hr IV .[id number] [facility] Last Admin: 09/13/16 11:29 Dose: 30 mls/hr Insulin Aspart (Novolog) 0 unit SC Q6 [facility] PRN Reason: Protocol Last Admin: 09/13/16 18:09 Dose: Not Given Levothyroxine Sodium (Synthroid) 50 mcg PO DAILY@0630 [facility] Last Admin: 09/13/16 05:40 Dose: Not Given Pantoprazole Sodium (Protonix Inj) 40 mg IVP DAILY [facility] Last Admin: 09/13/16 11:28 Dose: 40 mg Rosuvastatin Calcium (Crestor) 10 mg PO HS [facility] Last Admin: 09/12/16 21:40 Dose: Not Given - Labs Labs: 09/13/16 06:27 09/13/16 06:27 PT 11.4 SECONDS (9.7-12.2) 09/10/16 06:41 INR 1.0 09/10/16 06:41 APTT 25 SECONDS (21-34) D 09/10/16 06:41 Assessment and Plan - Assessment and Plan (Free Text) Assessment: (1) NSTEMI (non-ST elevation myocardial infarction) Status: Acute L Main and multi vessel calcific CAD High risk Revascularization Vs. Medical therapy final plan after d/w patient and the family (2) s/p Pulmonary edema Status: Acute (3) Respiratory failure with hypoxia Status: Acute On Ventilator (4) Acute kidney injury superimposed on CKD Status: Chronic On HD (5) DM2 (diabetes mellitus, type 2) Status: Chronic Medical mgt (6) HTN (hypertension) Status: Chronic
[2016-09-14] MEDS: Albuterol-Ipratrop 3 mg / 0.5 (3 ml) UD INH SCH ×3 (01:58→19:17)
[2016-09-14] MEDS: (Novolog) Insulin Aspart, Recombinant 100 u/ml 10 ml vial SC SCH ×3 (06:06→18:23)
--- NOTE | 2016-09-14 10:31 | CP.PCM.PN ---
Subjective - Date & Time of Evaluation Date of Evaluation: 09/14/16 Time of Evaluation: 07:00 - Subjective Subjective: Patient seen and examined. Lying comfortably in no acute distress Patient is off BiPAP Patient was seen during hemodialysis Objective - Vital Signs/Intake and Output Vital Signs (last 24 hours): Temp Pulse Resp BP Pulse Ox 97.6 F 84 15 150/70 92 L 09/14/16 04:00 09/14/16 07:00 09/14/16 07:00 09/14/16 06:47 09/14/16 07:00 Intake and Output: 09/14/16 09/14/16 06:59 18:59 Intake Total 360 30 Output Total 225 0 Balance 135 30 - Medications Medications: Current Medications Albuterol/Ipratropium (Duoneb 3 Mg/0.5 Mg (3 Ml) Ud) 3 ml INH RQ6 [facility] Last Admin: 09/14/16 08:58 Dose: 3 ml Aspirin (Aspirin Supp) 300 mg [place] DAILY [facility] Last Admin: 09/13/16 11:29 Dose: 300 mg Emollient Ointment (Vaseline Oint) 5 gm TOP BID PRN PRN Reason: Dry skin Epoetin Dominik (Procrit) 10,000 unit IV TTS [facility] Last Admin: 09/12/16 09:52 Dose: 10,000 unit Heparin Sodium (Porcine) (Heparin) 5,000 units SC Q12 [facility] Last Admin: 09/14/16 10:10 Dose: 5,000 units Dextrose (Dextrose 10% In Water) 500 mls @ 30 mls/hr IV .[id number] [facility] Last Admin: 09/14/16 04:34 Dose: 30 mls/hr Insulin Aspart (Novolog) 0 unit SC Q6 [facility] PRN Reason: Protocol Last Admin: 09/14/16 06:06 Dose: 4 unit Levothyroxine Sodium (Synthroid) 50 mcg PO DAILY@0630 [facility] Last Admin: 09/13/16 05:40 Dose: Not Given Pantoprazole Sodium (Protonix Inj) 40 mg IVP DAILY [facility] Last Admin: 09/14/16 10:10 Dose: 40 mg Rosuvastatin Calcium (Crestor) 10 mg PO HS [facility] Last Admin: 09/13/16 22:50 Dose: Not Given - Labs Labs: 09/13/16 06:27 09/13/16 06:27 PT 11.4 SECONDS (9.7-12.2) 09/10/16 06:41 INR 1.0 09/10/16 06:41 APTT 25 SECONDS (21-34) D 09/10/16 06:41 - Constitutional Appears: No Acute Distress - Head Exam Head Exam: ATRAUMATIC, NORMOCEPHALIC - Eye Exam Eye Exam: Normal appearance - ENT Exam ENT Exam: Mucous Membranes Moist - Neck Exam Neck Exam: Normal Inspection - Cardiovascular Exam Cardiovascular Exam: REGULAR RHYTHM - GI/Abdominal Exam GI & Abdominal Exam: Soft, Normal Bowel Sounds - Extremities Exam Extremities Exam: Full ROM Assessment and Plan (1) Respiratory failure with hypoxia Assessment & Plan: Status post extubation and off BiPAP in no respiratory distress Continue hemodialysis Status post cardiac cath and continue treatment as per cardiology Status: Acute (2) NSTEMI (non-ST elevation myocardial infarction) Status: Acute (3) Acute kidney injury superimposed on CKD Status: Chronic
--- NOTE | 2016-09-14 11:39 | CP.PCM.PN ---
Subjective - Date & Time of Evaluation Date of Evaluation: 09/14/16 Time of Evaluation: 11:37 - Subjective Subjective: s/p extubation 09/12 Off biPAP looks much better- not dysneic no other complaints await feedings UO-900ml On dialysis now Last CXR still with CHF unclear how much renal function will recover Objective - Vital Signs/Intake and Output Vital Signs (last 24 hours): Temp Pulse Resp BP Pulse Ox 96.3 F L 84 22 141/64 92 L 09/14/16 09:40 09/14/16 09:40 09/14/16 09:40 09/14/16 11:25 09/14/16 09:40 Intake and Output: 09/14/16 09/14/16 06:59 18:59 Intake Total 360 30 Output Total 225 0 Balance 135 30 - Medications Medications: Current Medications Aspirin (Aspirin Supp) 300 mg [place] DAILY [facility] Last Admin: 09/14/16 11:17 Dose: 300 mg Emollient Ointment (Vaseline Oint) 5 gm TOP BID PRN PRN Reason: Dry skin Epoetin Dominik (Procrit) 10,000 unit IV TTS [facility] Last Admin: 09/12/16 09:52 Dose: 10,000 unit Heparin Sodium (Porcine) (Heparin) 5,000 units SC Q12 [facility] Last Admin: 09/14/16 10:10 Dose: 5,000 units Dextrose (Dextrose 10% In Water) 500 mls @ 30 mls/hr IV .[id number] [facility] Last Admin: 09/14/16 04:34 Dose: 30 mls/hr Insulin Aspart (Novolog) 0 unit SC Q6 [facility] PRN Reason: Protocol Last Admin: 09/14/16 06:06 Dose: 4 unit Levothyroxine Sodium (Synthroid) 50 mcg PO DAILY@0630 [facility] Last Admin: 09/13/16 05:40 Dose: Not Given Pantoprazole Sodium (Protonix Inj) 40 mg IVP DAILY [facility] Last Admin: 09/14/16 10:10 Dose: 40 mg Rosuvastatin Calcium (Crestor) 10 mg PO HS [facility] Last Admin: 09/13/16 22:50 Dose: Not Given - Labs Labs: 09/13/16 06:27 09/13/16 06:27 PT 11.4 SECONDS (9.7-12.2) 09/10/16 06:41 INR 1.0 09/10/16 06:41 APTT 25 SECONDS (21-34) D 09/10/16 06:41 - Constitutional Appears: No Acute Distress, Chronically Ill - Head Exam Head Exam: ATRAUMATIC, NORMAL INSPECTION - Eye Exam Eye Exam: EOMI, Normal appearance - Neck Exam Neck Exam: Normal Inspection. absent: Tenderness - Respiratory Exam Respiratory Exam: Clear to Ausculation Bilateral, NORMAL BREATHING PATTERN - Cardiovascular Exam Cardiovascular Exam: REGULAR RHYTHM, +S1 - GI/Abdominal Exam GI & Abdominal Exam: Soft. absent: Tenderness - Extremities Exam Extremities Exam: Normal Inspection. absent: Tenderness - Neurological Exam Neurological Exam: Alert, CN II-XII Intact - Skin Skin Exam: Dry, Warm Assessment and Plan (1) NSTEMI (non-ST elevation myocardial infarction) Status: Acute (2) Pulmonary edema Status: Resolved (3) Acute kidney injury superimposed on CKD Status: Chronic (4) Cardiorenal syndrome with renal failure Status: Acute - Assessment and Plan (Free Text) Plan: Continue dialysis MWF Await feeds Will need conversion to permcath
--- NOTE | 2016-09-14 13:18 | CP.PCM.PN ---
Subjective - Date & Time of Evaluation Date of Evaluation: 09/14/16 Time of Evaluation: 11:40 - Subjective Subjective: afebrile awake and responsive feeling comfortable pt is extuabted and off to bipap CXr is still showing sign of CHF Objective - Vital Signs/Intake and Output Vital Signs (last 24 hours): Temp Pulse Resp BP Pulse Ox 96.3 F L 95 H 19 125/66 97 09/14/16 09:40 09/14/16 12:46 09/14/16 12:46 09/14/16 12:46 09/14/16 12:46 Intake and Output: 09/14/16 09/14/16 06:59 18:59 Intake Total 360 180 Output Total 225 2000 Balance 135 -1820 - Medications Medications: Current Medications Aspirin (Aspirin Supp) 300 mg [place] DAILY [facility] Last Admin: 09/14/16 11:17 Dose: 300 mg Emollient Ointment (Vaseline Oint) 5 gm TOP BID PRN PRN Reason: Dry skin Epoetin Dominik (Procrit) 10,000 unit IV TTS [facility] Last Admin: 09/12/16 09:52 Dose: 10,000 unit Heparin Sodium (Porcine) (Heparin) 5,000 units SC Q12 [facility] Last Admin: 09/14/16 10:10 Dose: 5,000 units Dextrose (Dextrose 10% In Water) 500 mls @ 30 mls/hr IV .[id number] [facility] Last Admin: 09/14/16 04:34 Dose: 30 mls/hr Insulin Aspart (Novolog) 0 unit SC Q6 [facility] PRN Reason: Protocol Last Admin: 09/14/16 06:06 Dose: 4 unit Levothyroxine Sodium (Synthroid) 50 mcg PO DAILY@0630 [facility] Last Admin: 09/13/16 05:40 Dose: Not Given Pantoprazole Sodium (Protonix Inj) 40 mg IVP DAILY [facility] Last Admin: 09/14/16 10:10 Dose: 40 mg Rosuvastatin Calcium (Crestor) 10 mg PO HS [facility] Last Admin: 09/13/16 22:50 Dose: Not Given - Labs Labs: 09/13/16 06:27 09/13/16 06:27 PT 11.4 SECONDS (9.7-12.2) 09/10/16 06:41 INR 1.0 09/10/16 06:41 APTT 25 SECONDS (21-34) D 09/10/16 06:41 - Constitutional Appears: Well - Head Exam Head Exam: ATRAUMATIC, NORMAL INSPECTION, NORMOCEPHALIC - Eye Exam Eye Exam: EOMI, Normal appearance, PERRL Pupil Exam: NORMAL ACCOMODATION, PERRL - ENT Exam ENT Exam: Mucous Membranes Moist, Normal Exam - Neck Exam Neck Exam: Full ROM, Normal Inspection. absent: Lymphadenopathy - Respiratory Exam Respiratory Exam: Decreased Breath Sounds - Cardiovascular Exam Cardiovascular Exam: REGULAR RHYTHM, +S1, +S2 - GI/Abdominal Exam GI & Abdominal Exam: Soft, Diminished Bowel Sounds - Rectal Exam Rectal Exam: Deferred Assessment and Plan - Assessment and Plan (Free Text) Plan: Dr. Ant Castro f/u of CXR continue meds as ordered
--- NOTE | 2016-09-14 14:48 | CP.CCUPN ---
CCU Subjective - Physician Review Subjective (Free Text): 09/14/16 14:48 Pt S&E at bedside. Pt has tolerated diet and OOB to chair. Extubated over the weekend. Tolerating soft diet. No current complaints. Spoke with DR. Cain who recommends permatcath placement for continued dialysis. Pt for transfer to the floor today. CCU Objective - Vital Signs / Intake & Output Vital Signs (Last 4 hours): Vital Signs Pulse Resp BP BP Pulse Ox 09/14/16 12:46 95 H 19 125/66 97 09/14/16 12:31 93 H 21 144/65 95 09/14/16 12:16 93 H 15 145/42 L 94 L 09/14/16 12:01 91 H 13 151/61 H 95 09/14/16 12:00 93 H 26 H 91 L 09/14/16 11:55 151/61 H 09/14/16 11:46 92 H 16 137/63 92 L 09/14/16 11:32 133/61 09/14/16 11:31 94 H 18 91 L 09/14/16 11:25 141/64 09/14/16 11:16 94 H 15 141/64 92 L 09/14/16 11:01 93 H 10 L 129/87 95 09/14/16 11:00 95 H 9 L 96 09/14/16 10:55 129/87 09/14/16 10:46 90 13 153/67 H 96 Intake and Output (Last 8hrs): Intake & Output 09/13/16 09/14/16 09/14/16 22:59 06:59 14:59 Intake Total 240 240 180 Output Total 914 163 3139 Balance 35 65 -1820 Weight 170 lb Intake: Intake, IV Amount 240 240 180 Right Distal Port PICC 240 240 180 Oral 0 0 0 Output: Urine 205 175 0 Urethral (Garza) 155 Condom 50 80 Urine, Voided 95 0 Other 1999 Other: # Bowel Movements 0 1 - Physical Exam Head: Positive for: Atraumatic, Normocephalic Pupils: Positive for: PERRL Extroacular Muscles: Positive for: EOMI Conjunctiva: Positive for: Normal Mouth: Positive for: Moist Mucous Membranes Neck: Positive for: Normal Range of Motion Respiratory/Chest: Positive for: Clear to Auscultation, Good Air Exchange Cardiovascular: Positive for: Regular Rate and Rhythm, Normal S1, S2 Abdomen: Positive for: Distention, Normal Bowel Sounds. Negative for: Tenderness Upper Extremity: Positive for: Normal Inspection. Negative for: Cyanosis, Edema Lower Extremity: Positive for: Normal Inspection, Edema (1+) Neurological: Positive for: GCS=15 Skin: Positive for: Warm, Dry Psychiatric: Positive for: Alert, Oriented x 3, Normal Insight - Medications Active Medications: Active Medications Generic Name Dose Route Start Last Admin Trade Name Freq PRN Reason Stop Dose Admin Albuterol/Ipratropium 3 ml 09/14/16 20:00 Duoneb 3 Mg/0.5 Mg (3 Ml) Ud INH RQ6 [facility] Aspirin 300 mg 09/13/16 11:00 09/14/16 11:17 Aspirin Supp RI 300 mg DAILY [facility] Administration Emollient Ointment 5 gm 09/12/16 16:15 Vaseline Oint TOP BID PRN Dry skin Epoetin Dominik 10,000 unit 09/10/16 11:15 09/12/16 09:52 Procrit IV 10,000 unit TTS [facility] Administration Heparin Sodium (Porcine) 5,000 units 09/14/16 10:00 09/14/16 10:10 Heparin SC 5,000 units Q12 [facility] Administration Insulin Aspart 0 unit 09/08/16 18:00 09/14/16 13:52 Novolog SC 4 unit Q6 [facility] Administration Protocol Levothyroxine Sodium 50 mcg 09/05/16 06:30 09/13/16 05:40 Synthroid PO Not Given DAILY@0630 [facility] Pantoprazole Sodium 40 mg 09/13/16 11:00 09/14/16 10:10 Protonix Inj IVP 40 mg DAILY [facility] Administration Rosuvastatin Calcium 10 mg 09/04/16 21:15 09/13/16 22:50 Crestor PO Not Given HS [facility] - Patient Studies Lab Studies: Microbiology Studies 09/11/16 09:30 Blood Culture - Preliminary Blood NO GROWTH AFTER 3 DAYS 09/11/16 09:00 Blood Culture - Preliminary Blood NO GROWTH AFTER 3 DAYS Lab Studies 09/14/16 09/14/16 09/13/16 Range/Units 12:34 06:03 23:37 POC Glucose (mg/dL) 226 H 208 H 295 H (65-110) mg/dL 09/13/16 Range/Units 17:43 POC Glucose (mg/dL) 196 H (65-110) mg/dL Laboratory Results - last 24 hr 09/13/16 09/13/16 09/14/16 17:43 23:37 06:03 POC Glucose (mg/dL) 196 H 295 H 208 H 09/14/16 12:34 POC Glucose (mg/dL) 226 H Fingerstick Blood Sugar Results: 226 Review of Systems - Constitutional Constitutional: absent: Fever, Chills - EENT Eyes: absent: Change in Vision Ears: absent: Decreased Hearing - Cardiovascular Cardiovascular: absent: Chest Pain, Chest Pain at Rest, Dyspnea, Dyspnea on Exertion - Respiratory Respiratory: absent: Cough, Dyspnea on Exertion, Wheezing - Gastrointestinal Gastrointestinal: absent: Abdominal Pain, Nausea, Vomiting - Neurological Neurological: absent: Weakness - Endocrine Endocrine: absent: Polyphagia Critical Care Progress Note - Nutrition Nutrition: Nutrition Category Date Time Status Soft [Dysphagia/Modified Consistency Diet] [DIET] Diets 09/14/16 Lunch Active Assessment/Plan - Assessment and Plan (Free Text) Assessment: 81 year old with DM, HTN, CKD, meningeoma, admitted with shortness of breath requiring BiPAP. Pulmonary edema, ARDS, requiring intubation. Elevated troponins , diagnosed with NSTEMI. Plan: Pt for transfer to Telemetry today Neuro: Extubated AAOx3 Pulm: Patient intubated due to severe ARDS, currently now mild ARDS ABG: much improved Current vent settings: PRVC: FiO2 70%, Tvolume 4500, resp rate 16, peep 10 Duonebs Q6H, Imdur, Solumedrol was DC 4/15 CXR: Much improved, less congested CV: Elevated troponins: NSTEMI; PICC line placed ECHO: Left ventricle mildly dilated. Anteroapical and inferoapical hypokinesis. Grade 3 restrictive diastolic dysfunction. Moderate TR, Pulm HTN, MR and mild AR. No pericardial effusion. HLD: Crestor 10mg PO QHS CAD: ASA Plan for Cardiac Catherization with Dr. Garcia today: Patient s/p cath 1. L Main: Distal calcific 70% 2. LAD: Mid to distal calcific 80 to 95% calcific stenosis 3. L Cx: [place] calcific 90%, Mid Calcific 80% 4. RCA: Proximal 100% occluded 5. 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 Garcia will decide after patient gets extubated and is more stable Renal: LUIS EDUARDO on CKD Baseline creatine: 3.0 - BUN/Cr improved from admission; Cr 2.0 today Procrit 10,000 units TTS Wade catheter placed Dr. Cain consulted - pt for dialysis today - requests Dr. Frank consult for Permacath placement Endo: DM: increased to Levemir 30 units BID, ISS - high Hypothyroidism: 50 mcg PO daily GI: Tolerating soft diet Protonix 40mg PO daily DVT Prophylaxis: Heparin 5000 Q12H Medical records retrieved from [facility]: Patient had Carotid dopplers on 05/18/2016 which should Right ICA stenosis of 70-79%. MRA of carotids showed: 50-69% narrowing takeoff of right ICA with a less than 50% narrowing more distally. ECHO done on 08/16/16 showed LVEF: 60-65%. Grade 1 diastolic dysfunction present. Left atrium borderline dilated. Mild AR, TR, moderate AR, MR. Right ventricular systolic pressure is estimated at 46mmHG. Jose (SON) [phone] REKHA Younger DO, PGY-1
--- NOTE | 2016-09-14 16:54 | CP.PCM.CON ---
History of Present Illness - History of Present Illness History of Present Illness: Vascular Surgery Dr. Frank 81 y/o Sammarinese-speaking M w/ PMHx of DM, HTN, CKD, meningeoma was admitted 2/2 SOB requiring BiPAP. Pt found to have elevated troponins, was seen by cardiology and Dx w/ NSTEMI. Pt was found to be in fluid overload. Pt was intubated and subsequently extubated a few days ago. Nephrology would like a more permanent dialysis catheter placed due to the pt's response to dialysis. Pt has no complaints. admits to slight cough but denies F/C, CP. PMHx: see above Meds: reviewed in chart NKDA PSHx: B/L CEAs FHx: non contributory SHx: former smoker; denies EtOH, Drug use Review of Systems - Review of Systems All systems: reviewed and no additional remarkable complaints except (whats stated in HPI) Past Patient History - Past Medical History & Family History Past Medical History?: Yes - Past Social History Smoking Status: Never Smoked - CARDIAC Hx Cardiac Disorders: No Hx Congestive Heart Failure: No Hx Hypercholesterolemia: No Hx Hypertension: Yes - PULMONARY Hx Respiratory Disorders: No Hx Chronic Obstructive Pulmonary Disease (COPD): No - NEUROLOGICAL Hx Neurological Disorder: No HX Cerebrovascular Accident: No - HEENT Hx HEENT Problems: Yes Hx Cataracts: Yes (with surgery done and IOL) - RENAL Hx Chronic Kidney Disease: No - ENDOCRINE/METABOLIC Hx Endocrine Disorders: No - HEMATOLOGICAL/ONCOLOGICAL Hx Blood Disorders: No Hx Human Immunodeficiency Virus (HIV): No - INTEGUMENTARY Hx Dermatological Problems: No - MUSCULOSKELETAL/RHEUMATOLOGICAL Hx Musculoskeletal Disorders: No Hx Arthritis: No Hx Rheumatoid Arthritis: No - GASTROINTESTINAL Hx Gastrointestinal Disorders: No - GENITOURINARY/GYNECOLOGICAL Hx Genitourinary Disorders: No - PSYCHIATRIC Hx Substance Use: No - SURGICAL HISTORY Hx Surgeries: Yes Other/Comment: Bilateral neck surgery carotid artery - ANESTHESIA Hx Anesthesia: Yes Hx Anesthesia Reactions: No Meds Allergies/Adverse Reactions: Allergies Allergy/AdvReac Type Severity Reaction Status Date / Time No Known Allergies Allergy Verified 09/04/16 06:02 - Medications Medications: Current Medications Albuterol/Ipratropium (Duoneb 3 Mg/0.5 Mg (3 Ml) Ud) 3 ml INH RQ6 [facility] Aspirin (Aspirin Supp) 300 mg [place] DAILY [facility] Last Admin: 09/14/16 11:17 Dose: 300 mg Emollient Ointment (Vaseline Oint) 5 gm TOP BID PRN PRN Reason: Dry skin Epoetin Dominik (Procrit) 10,000 unit IV TTS [facility] Last Admin: 09/12/16 09:52 Dose: 10,000 unit Heparin Sodium (Porcine) (Heparin) 5,000 units SC Q12 [facility] Last Admin: 09/14/16 10:10 Dose: 5,000 units Insulin Aspart (Novolog) 0 unit SC Q6 [facility] PRN Reason: Protocol Last Admin: 09/14/16 13:52 Dose: 4 unit Levothyroxine Sodium (Synthroid) 50 mcg PO DAILY@0630 [facility] Last Admin: 09/13/16 05:40 Dose: Not Given Pantoprazole Sodium (Protonix Inj) 40 mg IVP DAILY [facility] Last Admin: 09/14/16 10:10 Dose: 40 mg Rosuvastatin Calcium (Crestor) 10 mg PO HS [facility] Last Admin: 09/13/16 22:50 Dose: Not Given Physical Exam - Constitutional Appears: Non-toxic, No Acute Distress - Head Exam Head Exam: NORMAL INSPECTION - Eye Exam Eye Exam: Normal appearance - ENT Exam ENT Exam: Mucous Membranes Moist - Respiratory Exam Respiratory Exam: NORMAL BREATHING PATTERN. absent: Accessory Muscle Use, Respiratory Distress - Cardiovascular Exam Cardiovascular Exam: RRR. absent: Bradycardia, Tachycardia - GI/Abdominal Exam GI & Abdominal Exam: Guarding, Soft. absent: Distended, Rebound, Tenderness Additional comments: dialysis catheter (Shiley) present in R groin. dressing c/d/i - Extremities Exam Extremities exam: Positive for: pedal edema (1+ pitting B/L pre-tibial) Additional comments: PICC present RUE dressing c/d/i - Neurological Exam Neurological exam: Alert, Oriented x3 - Psychiatric Exam Psychiatric exam: Normal Affect, Normal Mood - Skin Skin Exam: Dry, Normal Color, Warm Results - Vital Signs Recent Vital Signs: Last Vital Signs Temp 97.9 F 09/14/16 16:00 Pulse 91 H 09/14/16 16:31 Resp 12 09/14/16 16:31 BP 145/73 09/14/16 16:31 Pulse Ox 97 09/14/16 16:31 - Labs Result Diagrams: 09/13/16 06:27 09/13/16 06:27 Labs: Laboratory Results - last 24 hr 09/13/16 09/13/16 09/14/16 17:43 23:37 06:03 POC Glucose (mg/dL) 196 H 295 H 208 H 09/14/16 12:34 POC Glucose (mg/dL) 226 H Assessment & Plan - Assessment and Plan (Free Text) Assessment: 81 y/o M w/ fluid overload requiring HD - NPO after MN - hold anticoagulation - AM labs including Coags - continue medical management - OR tomorrow afternoon for Permacath insertion Pt discused w/ Dr. Monika Mcneill DO PGY1
[2016-09-14] MEDS: (Lantus) Insulin Glargine, Recombinant SC SCH (18:22)
--- NOTE | 2016-09-14 22:38 | CP.PCM.PN ---
Subjective - Date & Time of Evaluation Date of Evaluation: 09/14/16 Time of Evaluation: 07:00 - Subjective Subjective: Patient awake and comfortable Continue current meds CCU Objective - Physical Exam Physical Exam Limitations: Positive for: Other (Intubated ) Head: Positive for: Atraumatic, Normocephalic Pupils: Positive for: PERRL Extroacular Muscles: Positive for: EOMI Conjunctiva: Positive for: Normal Mouth: Positive for: Moist Mucous Membranes, Other (ET in place) Neck: Positive for: Normal Range of Motion Respiratory/Chest: Positive for: Decreased Breath Sounds Cardiovascular: Positive for: Regular Rate and Rhythm, Normal S1, S2 Abdomen: Positive for: Distention, Normal Bowel Sounds. Negative for: Tenderness Upper Extremity: Positive for: Normal Inspection. Negative for: Cyanosis, Edema Lower Extremity: Positive for: Normal Inspection. Negative for: Edema Neurological: Positive for: GCS=15 Skin: Positive for: Warm, Dry Psychiatric: Positive for: Alert, Oriented x 2, Normal Insight Objective - Vital Signs/Intake and Output Vital Signs (last 24 hours): Temp Pulse Resp BP Pulse Ox 97.9 F 89 12 118/11 L 91 L 09/14/16 16:00 09/14/16 19:01 09/14/16 19:01 09/14/16 19:01 09/14/16 19:01 Intake and Output: 09/14/16 09/15/16 18:59 06:59 Intake Total 610 50 Output Total 2200 50 Balance -1590 0 - Medications Medications: Current Medications Albuterol/Ipratropium (Duoneb 3 Mg/0.5 Mg (3 Ml) Ud) 3 ml INH RQ6 [facility] Last Admin: 09/14/16 19:17 Dose: 3 ml Aspirin (Aspirin Supp) 300 mg [place] DAILY [facility] Last Admin: 09/14/16 11:17 Dose: 300 mg Emollient Ointment (Vaseline Oint) 5 gm TOP BID PRN PRN Reason: Dry skin Epoetin Dominik (Procrit) 10,000 unit IV TTS [facility] Last Admin: 09/12/16 09:52 Dose: 10,000 unit Heparin Sodium (Porcine) (Heparin) 5,000 units SC Q12 [facility] Last Admin: 09/14/16 21:05 Dose: 5,000 units Insulin Aspart (Novolog) 0 unit SC Q6 [facility] PRN Reason: Protocol Last Admin: 09/14/16 18:23 Dose: 12 unit Insulin Glargine (Lantus) 30 unit [place] DAILY [facility] Last Admin: 09/14/16 18:22 Dose: 30 unit Levothyroxine Sodium (Synthroid) 50 mcg PO DAILY@0630 [facility] Last Admin: 09/13/16 05:40 Dose: Not Given Pantoprazole Sodium (Protonix Inj) 40 mg IVP DAILY [facility] Last Admin: 09/14/16 10:10 Dose: 40 mg Potassium Chloride (K-Dur 20 Meq Er Tab) 40 meq PO DAILY [facility] Stop: 09/17/16 10:01 Rosuvastatin Calcium (Crestor) 10 mg PO HS [facility] Last Admin: 09/14/16 21:05 Dose: 10 mg - Labs Labs: 09/13/16 06:27 09/13/16 06:27 PT 11.4 SECONDS (9.7-12.2) 09/10/16 06:41 INR 1.0 09/10/16 06:41 APTT 25 SECONDS (21-34) D 09/10/16 06:41 Assessment and Plan - Assessment and Plan (Free Text) Assessment: (1) NSTEMI (non-ST elevation myocardial infarction) Status: Acute 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
[2016-09-15] MEDS: (Novolog) Insulin Aspart, Recombinant 100 u/ml 10 ml vial SC SCH ×4 (01:00→22:30)
[2016-09-15] MEDS: Albuterol-Ipratrop 3 mg / 0.5 (3 ml) UD INH SCH ×4 (01:11→20:02)
[2016-09-15 06:44] LABS: BASO % 0.3 % (0.0-2.0); EOS # 0.4 K/uL (0.0-0.7); EOS % 3.6 % (0.0-4.0); HEMATOCRIT 34.3 % (35.0-51.0); LYMPH # 1.5 K/uL (1.0-4.3); LYMPH % 11.9 % (20.0-40.0); MEAN CELL VOLUME 92.2 fL (80.0-94.0); MEAN CORPUSCULAR HEMOGLOBIN 30.9 pg (27.0-31.0); MEAN CORPUSCULAR HGB CONC 33.6 g/dL (33.0-37.0); MEAN PLATELET VOLUME 9.5 fL (7.2-11.7); MONO # 1.5 K/uL (0.0-0.8); MONO % 12.2 % (0.0-10.0); NRBC % 0.1 % (0.0-2.0); RED CELL DISTRIBUTION WIDTH 13.7 % (11.5-14.5); WHITE BLOOD COUNT 12.3 K/uL (4.8-10.8)
[2016-09-15 06:47] LABS: POTASSIUM 3.5 mmol/L (3.6-5.2)
[2016-09-15 06:50] LABS: BILIRUBIN,TOTAL 0.8 mg/dL (0.2-1.3); TOTAL PROTEIN 6.3 g/dL (6.3-8.3)
[2016-09-15] MEDS: Levothyroxine 50 MCG TAB PO SCH (07:41)
[2016-09-15] MEDS ORDERED: Potassium Chloride 10 mEq 100 ML IVPB ONE (09:30)
[2016-09-15] MEDS: Potassium Chloride 20 mEq ER Tab PO SCH (09:44)
--- NOTE | 2016-09-15 10:19 | CP.PCM.PN ---
Subjective - Date & Time of Evaluation Date of Evaluation: 09/15/16 Time of Evaluation: 10:16 - Subjective Subjective: Appears much better- not dyspneic NPO for permcath now- hopefully will start oral diet soon Stable dialysis 09/14 No other sxs HTN uncontrolled Objective - Vital Signs/Intake and Output Vital Signs (last 24 hours): Temp Pulse Resp BP Pulse Ox 97.8 F 94 H 12 187/84 H 98 09/15/16 04:00 09/15/16 04:00 09/15/16 04:00 09/15/16 04:01 09/15/16 03:46 Intake and Output: 09/15/16 09/15/16 06:59 18:59 Intake Total 50 Output Total 350 Balance -300 - Medications Medications: Current Medications Albuterol/Ipratropium (Duoneb 3 Mg/0.5 Mg (3 Ml) Ud) 3 ml INH RQ6 [facility] Last Admin: 09/15/16 08:33 Dose: 3 ml Aspirin (Aspirin) 325 mg PO DAILY [facility] Last Admin: 09/15/16 09:45 Dose: 325 mg Emollient Ointment (Vaseline Oint) 5 gm TOP BID PRN PRN Reason: Dry skin Epoetin Dominik (Procrit) 10,000 unit IV TTS [facility] Last Admin: 09/12/16 09:52 Dose: 10,000 unit Heparin Sodium (Porcine) (Heparin) 5,000 units SC Q12 [facility] Last Admin: 09/14/16 21:05 Dose: 5,000 units Potassium Chloride (Potassium Chloride 10 Meq/100 Ml) 100 mls @ 100 mls/hr IVPB ONCE ONE Stop: 09/15/16 10:29 Last Admin: 09/15/16 09:43 Dose: 100 mls/hr Insulin Aspart (Novolog) 0 unit SC ACHS [facility] PRN Reason: Protocol Insulin Glargine (Lantus) 30 unit SC DAILY [facility] Last Admin: 09/14/16 18:22 Dose: 30 unit Levothyroxine Sodium (Synthroid) 50 mcg PO DAILY@0630 [facility] Last Admin: 09/15/16 07:41 Dose: 50 mcg Pantoprazole Sodium (Protonix Inj) 40 mg IVP DAILY [facility] Last Admin: 09/15/16 09:44 Dose: 40 mg Potassium Chloride (K-Dur 20 Meq Er Tab) 40 meq PO DAILY [facility] Stop: 09/17/16 10:01 Last Admin: 09/15/16 09:44 Dose: 40 meq Rosuvastatin Calcium (Crestor) 10 mg PO HS [facility] Last Admin: 09/14/16 21:05 Dose: 10 mg - Labs Labs: 09/15/16 06:35 09/15/16 04:00 PT 11.7 SECONDS (9.7-12.2) 09/15/16 06:35 INR 1.0 09/15/16 06:35 APTT 29 SECONDS (21-34) 09/15/16 06:35 - Constitutional Appears: No Acute Distress, Chronically Ill - Head Exam Head Exam: ATRAUMATIC, NORMAL INSPECTION - Eye Exam Eye Exam: EOMI, Normal appearance - Neck Exam Neck Exam: Normal Inspection. absent: Tenderness - Respiratory Exam Respiratory Exam: Clear to Ausculation Bilateral, NORMAL BREATHING PATTERN - Cardiovascular Exam Cardiovascular Exam: REGULAR RHYTHM, +S1 - GI/Abdominal Exam GI & Abdominal Exam: Soft, Tenderness - Extremities Exam Extremities Exam: Normal Inspection. absent: Tenderness - Neurological Exam Neurological Exam: Alert, CN II-XII Intact - Skin Skin Exam: Dry, Warm Assessment and Plan (1) NSTEMI (non-ST elevation myocardial infarction) Status: Acute (2) Pulmonary edema Status: Resolved (3) Acute kidney injury superimposed on CKD Status: Chronic (4) Cardiorenal syndrome with renal failure Status: Acute - Assessment and Plan (Free Text) Plan: Dialysis MWF Permcath placement Increase BP meds
--- NOTE | 2016-09-15 11:19 | CP.PCM.PN ---
Subjective - Date & Time of Evaluation Date of Evaluation: 09/15/16 Time of Evaluation: 13:00 - Subjective Subjective: afebrile started soft diet and tolerating feeling comfortable Objective - Vital Signs/Intake and Output Vital Signs (last 24 hours): Temp Pulse Resp BP Pulse Ox 97.8 F 94 H 12 187/84 H 98 09/15/16 04:00 09/15/16 04:00 09/15/16 04:00 09/15/16 04:01 09/15/16 03:46 Intake and Output: 09/15/16 09/15/16 06:59 18:59 Intake Total 50 Output Total 350 Balance -300 - Medications Medications: Current Medications Albuterol/Ipratropium (Duoneb 3 Mg/0.5 Mg (3 Ml) Ud) 3 ml INH RQ6 [facility] Last Admin: 09/15/16 08:33 Dose: 3 ml Aspirin (Aspirin) 325 mg PO DAILY [facility] Last Admin: 09/15/16 09:45 Dose: 325 mg Carvedilol (Coreg) 3.125 mg PO BID [facility] Emollient Ointment (Vaseline Oint) 5 gm TOP BID PRN PRN Reason: Dry skin Epoetin Dominik (Procrit) 10,000 unit IV TTS [facility] Last Admin: 09/12/16 09:52 Dose: 10,000 unit Heparin Sodium (Porcine) (Heparin) 5,000 units SC Q12 [facility] Last Admin: 09/14/16 21:05 Dose: 5,000 units Insulin Aspart (Novolog) 0 unit SC ACHS [facility] PRN Reason: Protocol Insulin Glargine (Lantus) 30 unit SC DAILY [facility] Last Admin: 09/14/16 18:22 Dose: 30 unit Levothyroxine Sodium (Synthroid) 50 mcg PO DAILY@0630 [facility] Last Admin: 09/15/16 07:41 Dose: 50 mcg Pantoprazole Sodium (Protonix Inj) 40 mg IVP DAILY [facility] Last Admin: 09/15/16 09:44 Dose: 40 mg Potassium Chloride (K-Dur 20 Meq Er Tab) 40 meq PO DAILY [facility] Stop: 09/17/16 10:01 Last Admin: 09/15/16 09:44 Dose: 40 meq Rosuvastatin Calcium (Crestor) 10 mg PO HS [facility] Last Admin: 09/14/16 21:05 Dose: 10 mg - Labs Labs: 09/15/16 06:35 09/15/16 04:00 PT 11.7 SECONDS (9.7-12.2) 09/15/16 06:35 INR 1.0 09/15/16 06:35 APTT 29 SECONDS (21-34) 09/15/16 06:35 - Constitutional Appears: Well - Head Exam Head Exam: ATRAUMATIC, NORMAL INSPECTION, NORMOCEPHALIC - Eye Exam Eye Exam: EOMI, Normal appearance, PERRL Pupil Exam: NORMAL ACCOMODATION, PERRL - ENT Exam ENT Exam: Mucous Membranes Moist, Normal Exam - Neck Exam Neck Exam: Full ROM, Normal Inspection. absent: Lymphadenopathy - Respiratory Exam Respiratory Exam: Decreased Breath Sounds - Cardiovascular Exam Cardiovascular Exam: REGULAR RHYTHM, +S1, +S2 - GI/Abdominal Exam GI & Abdominal Exam: Soft, Diminished Bowel Sounds - Rectal Exam Rectal Exam: Deferred Assessment and Plan (1) CAD (coronary artery disease) Status: Acute (2) Cardiorenal syndrome with renal failure Status: Acute (3) DVT prophylaxis Status: Acute (4) Dialysis AV fistula malfunction Status: Acute (5) ESRD (end stage renal disease) Status: Acute (6) ESRD (end stage renal disease) Status: Acute (7) HTN (hypertension), benign Status: Acute (8) NSTEMI (non-ST elevation myocardial infarction) Status: Acute (9) Renal failure Status: Acute (10) Respiratory failure with hypoxia Status: Acute (11) Syncope Status: Acute (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 Matthew vásquez transferred to [place] started rx for HTN
[2016-09-15] MEDS: (Lantus) Insulin Glargine, Recombinant SC SCH (11:46)
[2016-09-15] MEDS ORDERED: Lidocaine 1% Inj (20ml) ONE (12:29)
[2016-09-15] MEDS ORDERED: HEPARIN-NS 5,000 UNITS/500 ML 500 ML IV ONE (12:30)
[2016-09-15] MEDS ORDERED: ceFAZolin 1 gm FROZEN Premix 50 ML IVPB ONE (12:30)
[2016-09-15] MEDS ORDERED: Sodium Chloride 0.9% 1,000 ML IV ONE (17:00)
[2016-09-15] MEDS ORDERED: Midazolam 2 MG/2 ML VIAL ONE (17:04)
[2016-09-15] MEDS ORDERED: Propofol 10 mg/ml Inj (20 ML) ONE (17:05)
[2016-09-15] MEDS ORDERED: Etomidate 20 mg/10ml Inj IV ONE (17:05)
[2016-09-15] MEDS ORDERED: HYDROmorphone 0.5 mg/0.5 ml ISec IVP PRN (17:29)
--- NOTE | 2016-09-15 18:16 | RAD ---
PROCEDURE: Intraoperative Fluoroscopy. HISTORY: PORTACATH INSERT FINDINGS: Fluoroscopic assistance was provided for right central venous catheter insertion. Please refer to the operative report from
--- NOTE | 2016-09-15 18:47 | OP ---
PROCEDURE DATE: 09/15/2016 PREOPERATIVE DIAGNOSIS: Renal failure. POSTOPERATIVE DIAGNOSIS: Renal failure. PROCEDURE CARRIED OUT: Placement of Perm-A-Cath right jugular vein with C-arm fluoroscopy and ultras ound-guided puncture and micropuncture technique. SURGEON: Lenard Frank Jr., MD TAKE OFF WORKER: resident. ANESTHESIOLOGIST: Dr. Hernandez. ANESTHESIA: Local with sedation. INDICATIONS: The patient is an elderly man with multiple problems, requires a Perm-A-Cath for dialys is access. OPERATIVE FINDINGS: Catheter was inserted uneventfully. PROCEDURE: The patient was given local anesthesia. Using ultrasound guidance, the right internal ju gular vein was punctured. Under fluoroscopic control, the guidewire was advanced centrally. A sheat h dilator was passed over this and the catheter positioned in the appropriate location, the tip in abel perior vena cava, right atrium. It was tunneled along the chest wall and brought out through the ski n and secured. It was flushed with heparinized saline after determining that there was good return. Blood loss for the procedure was less than 25 mL. OPERATION CARRIED OUT: Perm-A-Cath, right jugular vein with C-arm fluoroscopy and ultrasound-guided puncture. Ultrasound the vein was approximately 14 mm in diameter with normal compressibility and no evid ence of intraluminal thrombosis. Lenard Frank Jr., MD cc: 56 TT: 09/15/2016 18:47:02 sariah
--- NOTE | 2016-09-15 21:12 | CP.PCM.PN ---
Subjective - Date & Time of Evaluation Date of Evaluation: 09/15/16 Time of Evaluation: 13:10 - Subjective Subjective: Patient seen and evaluated Comfortable Denies chest pain and dyspnea CCU Objective - Physical Exam Physical Exam Limitations: Positive for: Other (Intubated ) Head: Positive for: Atraumatic, Normocephalic Pupils: Positive for: PERRL Extroacular Muscles: Positive for: EOMI Conjunctiva: Positive for: Normal Mouth: Positive for: Moist Mucous Membranes, Other (ET in place) Neck: Positive for: Normal Range of Motion Respiratory/Chest: Positive for: Decreased Breath Sounds Cardiovascular: Positive for: Regular Rate and Rhythm, Normal S1, S2 Abdomen: Positive for: Distention, Normal Bowel Sounds. Negative for: Tenderness Upper Extremity: Positive for: Normal Inspection. Negative for: Cyanosis, Edema Lower Extremity: Positive for: Normal Inspection. Negative for: Edema Neurological: Positive for: GCS=15 Skin: Positive for: Warm, Dry Psychiatric: Positive for: Alert, Oriented x 2, Normal Insight Objective - Vital Signs/Intake and Output Vital Signs (last 24 hours): Temp Pulse Resp BP Pulse Ox 97 F L 85 19 130/70 100 09/15/16 20:00 09/15/16 20:00 09/15/16 20:00 09/15/16 20:00 09/15/16 20:00 Intake and Output: 09/15/16 09/16/16 18:59 06:59 Intake Total 100 Balance 100 - Medications Medications: Current Medications Albuterol/Ipratropium (Duoneb 3 Mg/0.5 Mg (3 Ml) Ud) 3 ml INH RQ6 [facility] Last Admin: 09/15/16 20:02 Dose: 3 ml Aspirin (Aspirin) 325 mg PO DAILY [facility] Last Admin: 09/15/16 09:45 Dose: 325 mg Carvedilol (Coreg) 3.125 mg PO BID [facility] Last Admin: 09/15/16 19:05 Dose: 3.125 mg Emollient Ointment (Vaseline Oint) 5 gm TOP BID PRN PRN Reason: Dry skin Epoetin Dominik (Procrit) 10,000 unit IV TTS [facility] Last Admin: 09/12/16 09:52 Dose: 10,000 unit Heparin Sodium (Porcine) (Heparin) 5,000 units SC Q12 [facility] Last Admin: 09/14/16 21:05 Dose: 5,000 units Insulin Aspart (Novolog) 0 unit SC ACHS [facility] PRN Reason: Protocol Last Admin: 09/15/16 18:06 Dose: Not Given Insulin Glargine (Lantus) 30 unit SC DAILY [facility] Last Admin: 09/15/16 11:46 Dose: Not Given Levothyroxine Sodium (Synthroid) 50 mcg PO DAILY@0630 [facility] Last Admin: 09/15/16 07:41 Dose: 50 mcg Pantoprazole Sodium (Protonix Inj) 40 mg IVP DAILY [facility] Last Admin: 09/15/16 09:44 Dose: 40 mg Potassium Chloride (K-Dur 20 Meq Er Tab) 40 meq PO DAILY [facility] Stop: 09/17/16 10:01 Last Admin: 09/15/16 09:44 Dose: 40 meq Rosuvastatin Calcium (Crestor) 10 mg PO HS [facility] Last Admin: 09/14/16 21:05 Dose: 10 mg - Labs Labs: 09/15/16 06:35 09/15/16 04:00 PT 11.7 SECONDS (9.7-12.2) 09/15/16 06:35 INR 1.0 09/15/16 06:35 APTT 29 SECONDS (21-34) 09/15/16 06:35 Assessment and Plan - Assessment and Plan (Free Text) Assessment: (1) NSTEMI (non-ST elevation myocardial infarction) Status: Acute 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
[2016-09-16] MEDS: Albuterol-Ipratrop 3 mg / 0.5 (3 ml) UD INH SCH ×4 (01:06→19:28)
[2016-09-16] MEDS: Levothyroxine 50 MCG TAB PO SCH (06:40)
[2016-09-16] MEDS: (Novolog) Insulin Aspart, Recombinant 100 u/ml 10 ml vial SC SCH ×4 (08:06→21:55)
--- NOTE | 2016-09-16 08:38 | RAD ---
HISTORY: POST PORTACATH INSERT COMPARISON: 09/12/2016 FINDINGS: LUNGS: Right Port-A-Cath with tip extending into the right atrium. Diffuse increased interstitial lung markings throughout both lungs. No evidence of pneumothorax. Scattered nodularity in both lungs. Other lines and tubes in stable position. PLEURA: As above. CARDIOVASCULAR: Cardiomegaly. Calcification at the aortic knob. OSSEOUS STRUCTURES: No significant abnormalities. VISUALIZED UPPER ABDOMEN: Normal. OTHER FINDINGS: None. IMPRESSION: Right Port-A-Cath with tip extending into the right atrium. Diffuse increased interstitial lung markings throughout both lungs. No evidence of pneumothorax. Scattered nodularity in both lungs. Other lines and tubes in stable position.
--- NOTE | 2016-09-16 09:18 | CP.PCM.PN ---
Subjective - Date & Time of Evaluation Date of Evaluation: 09/16/16 Time of Evaluation: 09:15 - Subjective Subjective: s/p permcath inserion BP better controlled now Not dyspneic; no CPs, n, v, diarrhea; no other complaints Hg better- to decrease EPO dose Objective - Vital Signs/Intake and Output Vital Signs (last 24 hours): Temp Pulse Resp BP Pulse Ox 96.7 F L 82 22 144/84 100 09/16/16 04:00 09/16/16 04:00 09/16/16 04:00 09/16/16 04:00 09/16/16 04:00 Intake and Output: 09/16/16 09/16/16 06:59 18:59 Intake Total 240 Output Total 100 Balance 140 - Medications Medications: Current Medications Albuterol/Ipratropium (Duoneb 3 Mg/0.5 Mg (3 Ml) Ud) 3 ml INH RQ6 [facility] Last Admin: 09/16/16 07:33 Dose: 3 ml Aspirin (Aspirin) 325 mg PO DAILY [facility] Last Admin: 09/15/16 09:45 Dose: 325 mg Carvedilol (Coreg) 3.125 mg PO BID [facility] Last Admin: 09/15/16 19:05 Dose: 3.125 mg Emollient Ointment (Vaseline Oint) 5 gm TOP BID PRN PRN Reason: Dry skin Epoetin Dominik (Procrit) 4,000 unit IV MWF [facility] Heparin Sodium (Porcine) (Heparin) 5,000 units SC Q12 [facility] Last Admin: 09/14/16 21:05 Dose: 5,000 units Insulin Aspart (Novolog) 0 unit SC ACHS [facility] PRN Reason: Protocol Last Admin: 09/16/16 08:06 Dose: 6 unit Insulin Glargine (Lantus) 30 unit SC DAILY [facility] Last Admin: 09/15/16 11:46 Dose: Not Given Levothyroxine Sodium (Synthroid) 50 mcg PO DAILY@0630 [facility] Last Admin: 09/16/16 06:40 Dose: 50 mcg Pantoprazole Sodium (Protonix Inj) 40 mg IVP DAILY [facility] Last Admin: 09/15/16 09:44 Dose: 40 mg Potassium Chloride (K-Dur 20 Meq Er Tab) 40 meq PO DAILY [facility] Stop: 09/17/16 10:01 Last Admin: 09/15/16 09:44 Dose: 40 meq Rosuvastatin Calcium (Crestor) 10 mg PO HS [facility] Last Admin: 09/15/16 22:30 Dose: 10 mg - Labs Labs: 09/15/16 06:35 09/15/16 04:00 PT 11.7 SECONDS (9.7-12.2) 09/15/16 06:35 INR 1.0 09/15/16 06:35 APTT 29 SECONDS (21-34) 09/15/16 06:35 - Constitutional Appears: No Acute Distress, Chronically Ill - Head Exam Head Exam: ATRAUMATIC, NORMAL INSPECTION - Eye Exam Eye Exam: EOMI, Normal appearance - Neck Exam Neck Exam: Normal Inspection. absent: Tenderness - Respiratory Exam Respiratory Exam: Clear to Ausculation Bilateral, NORMAL BREATHING PATTERN - Cardiovascular Exam Cardiovascular Exam: REGULAR RHYTHM, +S1 - GI/Abdominal Exam GI & Abdominal Exam: Soft. absent: Tenderness - Extremities Exam Extremities Exam: Normal Inspection. absent: Tenderness - Neurological Exam Neurological Exam: Alert, CN II-XII Intact - Skin Skin Exam: Dry, Warm Assessment and Plan (1) NSTEMI (non-ST elevation myocardial infarction) Status: Acute (2) Acute kidney injury superimposed on CKD Status: Chronic (3) Cardiorenal syndrome with renal failure Status: Acute - Assessment and Plan (Free Text) Plan: Dialysis MWF now Decrease EPO dose Same BP meds Might need outpt dialysis arrangements
[2016-09-16] MEDS: Potassium Chloride 20 mEq ER Tab PO SCH (09:31)
[2016-09-16] MEDS: (Lantus) Insulin Glargine, Recombinant SC SCH (09:31)
--- NOTE | 2016-09-16 17:09 | CP.PCM.PN ---
Subjective - Date & Time of Evaluation Date of Evaluation: 09/16/16 Time of Evaluation: 07:00 - Subjective Subjective: VASCULAR SURGERY PROGRESS NOTE FOR DR. AZAR Patient seen and examined at bedside in the ICU. He had dialysis today. He denies pain at the [facility] hospital site. He had a BM today. Objective - Vital Signs/Intake and Output Vital Signs (last 24 hours): Temp Pulse Resp BP Pulse Ox 97.4 F L 93 H 14 110/55 L 100 09/16/16 12:50 09/16/16 12:50 09/16/16 12:50 09/16/16 12:50 09/16/16 12:50 Intake and Output: 09/16/16 09/16/16 06:59 18:59 Intake Total 240 420 Output Total 100 Balance 140 420 - Medications Medications: Current Medications Albuterol/Ipratropium (Duoneb 3 Mg/0.5 Mg (3 Ml) Ud) 3 ml INH RQ6 [facility] Last Admin: 09/16/16 13:57 Dose: 3 ml Aspirin (Aspirin) 325 mg PO DAILY [facility] Last Admin: 09/16/16 09:31 Dose: 325 mg Carvedilol (Coreg) 3.125 mg PO BID [facility] Last Admin: 09/16/16 09:32 Dose: Not Given Emollient Ointment (Vaseline Oint) 5 gm TOP BID PRN PRN Reason: Dry skin Epoetin Dominik (Procrit) 4,000 unit IV MWF [facility] Heparin Sodium (Porcine) (Heparin) 5,000 units SC Q12 [facility] Last Admin: 09/14/16 21:05 Dose: 5,000 units Insulin Aspart (Novolog) 0 unit SC ACHS [facility] PRN Reason: Protocol Last Admin: 09/16/16 11:47 Dose: 4 unit Insulin Glargine (Lantus) 30 unit SC DAILY [facility] Last Admin: 09/16/16 09:31 Dose: 30 unit Levothyroxine Sodium (Synthroid) 50 mcg PO DAILY@0630 [facility] Last Admin: 09/16/16 06:40 Dose: 50 mcg Pantoprazole Sodium (Protonix Inj) 40 mg IVP DAILY [facility] Last Admin: 09/16/16 09:31 Dose: 40 mg Potassium Chloride (K-Dur 20 Meq Er Tab) 40 meq PO DAILY [facility] Stop: 04/20/17 10:01 Last Admin: 09/16/16 09:31 Dose: 40 meq Rosuvastatin Calcium (Crestor) 10 mg PO HS [facility] Last Admin: 09/15/16 22:30 Dose: 10 mg - Labs Labs: 09/15/16 06:35 09/15/16 04:00 PT 11.7 SECONDS (9.7-12.2) 09/15/16 06:35 INR 1.0 09/15/16 06:35 APTT 29 SECONDS (21-34) 09/15/16 06:35 - Constitutional Appears: Non-toxic, No Acute Distress - Head Exam Head Exam: ATRAUMATIC, NORMAL INSPECTION - Eye Exam Eye Exam: EOMI, Normal appearance - Respiratory Exam Respiratory Exam: NORMAL BREATHING PATTERN. absent: Respiratory Distress Additional comments: Dressing clean/dry/intact - Cardiovascular Exam Cardiovascular Exam: +S1, +S2 - Neurological Exam Neurological Exam: Alert, Awake - Psychiatric Exam Psychiatric exam: Normal Affect, Normal Mood - Skin Skin Exam: Dry, Normal Color, Warm Assessment and Plan - Assessment and Plan (Free Text) Assessment: 81yo M with renal failure, now s/p Right jugular vein Permacath - Patient had successful dialysis this morning via permacath - Patient will be getting dialysis MWF per Dr. Cain's note - Can do AV fistula this admission if patient requires - Discussed plan with Dr. Monika Florez PGY-2
--- NOTE | 2016-09-16 18:59 | CP.PCM.PN ---
Subjective - Date & Time of Evaluation Date of Evaluation: 09/16/16 Time of Evaluation: 14:20 - Subjective Subjective: bp is now under control pt. clinically inproving hb is improving Objective - Vital Signs/Intake and Output Vital Signs (last 24 hours): Temp Pulse Resp BP Pulse Ox 97.0 F L 87 20 136/55 L 100 09/16/16 16:00 09/16/16 16:00 09/16/16 16:00 09/16/16 16:00 09/16/16 16:00 Intake and Output: 09/16/16 09/16/16 06:59 18:59 Intake Total 240 540 Output Total 100 Balance 140 540 - Medications Medications: Current Medications Albuterol/Ipratropium (Duoneb 3 Mg/0.5 Mg (3 Ml) Ud) 3 ml INH RQ6 [facility] Last Admin: 09/16/16 13:57 Dose: 3 ml Aspirin (Aspirin) 325 mg PO DAILY [facility] Last Admin: 09/16/16 09:31 Dose: 325 mg Carvedilol (Coreg) 3.125 mg PO BID [facility] Last Admin: 09/16/16 17:07 Dose: 3.125 mg Emollient Ointment (Vaseline Oint) 5 gm TOP BID PRN PRN Reason: Dry skin Epoetin Dominik (Procrit) 4,000 unit IV MWF [facility] Heparin Sodium (Porcine) (Heparin) 5,000 units SC Q12 [facility] Last Admin: 09/14/16 21:05 Dose: 5,000 units Insulin Aspart (Novolog) 0 unit SC ACHS [facility] PRN Reason: Protocol Last Admin: 09/16/16 17:06 Dose: 4 unit Insulin Glargine (Lantus) 30 unit SC DAILY [facility] Last Admin: 09/16/16 09:31 Dose: 30 unit Levothyroxine Sodium (Synthroid) 50 mcg PO DAILY@0630 [facility] Last Admin: 09/16/16 06:40 Dose: 50 mcg Pantoprazole Sodium (Protonix Inj) 40 mg IVP DAILY [facility] Last Admin: 09/16/16 09:31 Dose: 40 mg Potassium Chloride (K-Dur 20 Meq Er Tab) 40 meq PO DAILY [facility] Stop: 09/17/16 10:01 Last Admin: 09/16/16 09:31 Dose: 40 meq Rosuvastatin Calcium (Crestor) 10 mg PO HS [facility] Last Admin: 09/15/16 22:30 Dose: 10 mg - Labs Labs: 09/15/16 06:35 09/15/16 04:00 PT 11.7 SECONDS (9.7-12.2) 09/15/16 06:35 INR 1.0 09/15/16 06:35 APTT 29 SECONDS (21-34) 09/15/16 06:35 - Constitutional Appears: Well - Head Exam Head Exam: ATRAUMATIC, NORMAL INSPECTION, NORMOCEPHALIC - Eye Exam Eye Exam: EOMI, Normal appearance, PERRL Pupil Exam: NORMAL ACCOMODATION, PERRL - ENT Exam ENT Exam: Mucous Membranes Moist, Normal Exam - Neck Exam Neck Exam: Full ROM, Normal Inspection. absent: Lymphadenopathy - Respiratory Exam Respiratory Exam: Decreased Breath Sounds - Cardiovascular Exam Cardiovascular Exam: REGULAR RHYTHM, +S1, +S2 - GI/Abdominal Exam GI & Abdominal Exam: Soft, Diminished Bowel Sounds - Rectal Exam Rectal Exam: Deferred Assessment and Plan (1) CAD (coronary artery disease) Status: Acute (2) Cardiorenal syndrome with renal failure Status: Acute (3) DVT prophylaxis Status: Acute (4) Dialysis AV fistula malfunction Status: Acute (5) ESRD (end stage renal disease) Status: Acute (6) ESRD (end stage renal disease) Status: Acute (7) HTN (hypertension), benign Status: Acute (8) NSTEMI (non-ST elevation myocardial infarction) Status: Acute (9) Renal failure Status: Acute (10) Respiratory failure with hypoxia Status: Acute (11) Syncope Status: Acute (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 whitehead for outpatient dialysis Dr. fahad mercer continue same bp meds f/u labs and cxr continue same order
--- NOTE | 2016-09-16 23:07 | CP.PCM.PN ---
Subjective - Date & Time of Evaluation Date of Evaluation: 09/16/16 Time of Evaluation: 08:45 - Subjective Subjective: Patient seen and evaluated No chest pain Medical therapy for CAD Physical Examination - Constitutional Appears: Non-toxic, No Acute Distress - Eye Exam Eye Exam: EOMI, Normal appearance - Respiratory Exam Respiratory Exam: NORMAL BREATHING PATTERN. absent: Respiratory Distress - Cardiovascular Exam Cardiovascular Exam: +S1, +S2 Additional comments: Right IJ Permacath in place, dressing clean and dry - Neurological Exam Neurological Exam: Alert, Awake - Psychiatric Exam Psychiatric exam: Normal Affect, Normal Mood - Skin Skin Exam: Dry, Normal Color Objective - Vital Signs/Intake and Output Vital Signs (last 24 hours): Temp Pulse Resp BP Pulse Ox 97.2 F L 86 18 128/57 L 100 09/16/16 20:00 09/16/16 20:00 09/16/16 20:00 09/16/16 20:00 09/16/16 20:00 Intake and Output: 09/16/16 09/17/16 18:59 06:59 Intake Total 540 240 Balance 540 240 - Medications Medications: Current Medications Albuterol/Ipratropium (Duoneb 3 Mg/0.5 Mg (3 Ml) Ud) 3 ml INH RQ6 [facility] Last Admin: 09/16/16 19:28 Dose: 3 ml Aspirin (Aspirin) 325 mg PO DAILY [facility] Last Admin: 09/16/16 09:31 Dose: 325 mg Carvedilol (Coreg) 3.125 mg PO BID [facility] Last Admin: 09/16/16 17:07 Dose: 3.125 mg Emollient Ointment (Vaseline Oint) 5 gm TOP BID PRN PRN Reason: Dry skin Epoetin Dominik (Procrit) 4,000 unit IV F [facility] Heparin Sodium (Porcine) (Heparin) 5,000 units SC Q12 [facility] Last Admin: 09/16/16 21:55 Dose: 5,000 units Insulin Aspart (Novolog) 0 unit SC [facility] PRN Reason: Protocol Last Admin: 09/16/16 21:55 Dose: 2 unit Insulin Glargine (Lantus) 30 unit SC DAILY [facility] Last Admin: 09/16/16 09:31 Dose: 30 unit Levothyroxine Sodium (Synthroid) 50 mcg PO DAILY@0630 [facility] Last Admin: 09/16/16 06:40 Dose: 50 mcg Pantoprazole Sodium (Protonix Inj) 40 mg IVP DAILY [facility] Last Admin: 09/16/16 09:31 Dose: 40 mg Potassium Chloride (K-Dur 20 Meq Er Tab) 40 meq PO DAILY [facility] Stop: 09/17/16 10:01 Last Admin: 09/16/16 09:31 Dose: 40 meq Rosuvastatin Calcium (Crestor) 10 mg PO HS [facility] Last Admin: 09/16/16 21:55 Dose: 10 mg - Labs Labs: 09/15/16 06:35 09/15/16 04:00 PT 11.7 SECONDS (9.7-12.2) 09/15/16 06:35 INR 1.0 09/15/16 06:35 APTT 29 SECONDS (21-34) 09/15/16 06:35 Assessment and Plan - Assessment and Plan (Free Text) Assessment: (1) NSTEMI (non-ST elevation myocardial infarction) Status: Acute 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
[2016-09-17] MEDS: Albuterol-Ipratrop 3 mg / 0.5 (3 ml) UD INH SCH ×4 (03:11→20:08)
[2016-09-17] MEDS: Levothyroxine 50 MCG TAB PO SCH (05:30)
[2016-09-17] MEDS: (Novolog) Insulin Aspart, Recombinant 100 u/ml 10 ml vial SC SCH ×2 (07:55→21:04)
--- NOTE | 2016-09-17 10:01 | CP.PCM.PN ---
Subjective - Date & Time of Evaluation Date of Evaluation: 09/17/16 Time of Evaluation: 09:58 - Subjective Subjective: Feels better Stable dialysis 09/16- UF 2500ml Oliguric BP stable Objective - Vital Signs/Intake and Output Vital Signs (last 24 hours): Temp Pulse Resp BP Pulse Ox 98.5 F 87 13 146/64 98 09/17/16 04:00 09/17/16 04:00 09/17/16 04:00 09/17/16 04:00 09/17/16 04:00 Intake and Output: 09/17/16 09/17/16 06:59 18:59 Intake Total 240 Balance 240 - Medications Medications: Current Medications Albuterol/Ipratropium (Duoneb 3 Mg/0.5 Mg (3 Ml) Ud) 3 ml INH RQ6 [facility] Last Admin: 09/17/16 08:25 Dose: 3 ml Aspirin (Aspirin) 325 mg PO DAILY [facility] Last Admin: 09/16/16 09:31 Dose: 325 mg Carvedilol (Coreg) 3.125 mg PO BID [facility] Last Admin: 09/16/16 17:07 Dose: 3.125 mg Emollient Ointment (Vaseline Oint) 5 gm TOP BID PRN PRN Reason: Dry skin Epoetin Dominik (Procrit) 4,000 unit IV MWF [facility] Heparin Sodium (Porcine) (Heparin) 5,000 units SC Q12 [facility] Last Admin: 09/16/16 21:55 Dose: 5,000 units Insulin Aspart (Novolog) 0 unit SC ACHS [facility] PRN Reason: Protocol Last Admin: 09/16/16 21:55 Dose: 2 unit Insulin Glargine (Lantus) 30 unit SC DAILY [facility] Last Admin: 09/16/16 09:31 Dose: 30 unit Levothyroxine Sodium (Synthroid) 50 mcg PO DAILY@0630 [facility] Last Admin: 09/17/16 05:30 Dose: 50 mcg Pantoprazole Sodium (Protonix Inj) 40 mg IVP DAILY [facility] Last Admin: 09/16/16 09:31 Dose: 40 mg Potassium Chloride (K-Dur 20 Meq Er Tab) 40 meq PO DAILY [facility] Stop: 09/17/16 10:01 Last Admin: 09/16/16 09:31 Dose: 40 meq Rosuvastatin Calcium (Crestor) 10 mg PO HS [facility] Last Admin: 09/16/16 21:55 Dose: 10 mg - Labs Labs: 09/15/16 06:35 09/15/16 04:00 PT 11.7 SECONDS (9.7-12.2) 09/15/16 06:35 INR 1.0 09/15/16 06:35 APTT 29 SECONDS (21-34) 09/15/16 06:35 - Constitutional Appears: No Acute Distress, Chronically Ill - Head Exam Head Exam: ATRAUMATIC, NORMAL INSPECTION - Eye Exam Eye Exam: EOMI, Normal appearance - Neck Exam Neck Exam: Normal Inspection. absent: Tenderness - Respiratory Exam Respiratory Exam: Rales, NORMAL BREATHING PATTERN - Cardiovascular Exam Cardiovascular Exam: REGULAR RHYTHM, +S1 - GI/Abdominal Exam GI & Abdominal Exam: Soft. absent: Tenderness - Extremities Exam Extremities Exam: Normal Inspection. absent: Tenderness - Neurological Exam Neurological Exam: Alert, CN II-XII Intact - Skin Skin Exam: Dry, Warm Assessment and Plan (1) NSTEMI (non-ST elevation myocardial infarction) Status: Acute (2) Acute kidney injury superimposed on CKD Status: Chronic (3) Cardiorenal syndrome with renal failure Status: Acute - Assessment and Plan (Free Text) Plan: Increase UF at dialysis Discuss av access with surgery Dialysis MWF Recommend outpt dialysis at [facility]
[2016-09-17] MEDS: Potassium Chloride 20 mEq ER Tab PO SCH (11:15)
[2016-09-17] MEDS: (Lantus) Insulin Glargine, Recombinant SC SCH (11:16)
--- NOTE | 2016-09-17 11:19 | PCM.SURG1 ---
Surgeon's Initial Post Op Note - Surgeon's Notes Surgeon: Dr. Frank Citrix Administrator: Dr. Mcneill PGY1 Type of Anesthesia: General IV Pre-Operative Diagnosis: Renal Failure, fluid overload Operative Findings: see dictation Post-Operative Diagnosis: same Operation Performed: RIJ US guided permacath placement w/ fluoro; removal of femoral catheter Specimen/Specimens Removed: none Estimated Blood Loss: EBL {In ML}: 25 Post-Op Condition: Good Date of Surgery/Procedure: 09/15/16 Time of Surgery/Procedure: 17:00
--- NOTE | 2016-09-17 17:15 | CP.PCM.PN ---
Subjective - Date & Time of Evaluation Date of Evaluation: 09/17/16 Time of Evaluation: 13:40 - Subjective Subjective: bp stable stable on dialysis feeling better Objective - Vital Signs/Intake and Output Vital Signs (last 24 hours): Temp Pulse Resp BP Pulse Ox 97.8 F 87 13 146/64 98 09/17/16 12:00 09/17/16 04:00 09/17/16 04:00 09/17/16 04:00 09/17/16 04:00 Intake and Output: 09/17/16 09/17/16 06:59 18:59 Intake Total 240 Balance 240 - Medications Medications: Current Medications Albuterol/Ipratropium (Duoneb 3 Mg/0.5 Mg (3 Ml) Ud) 3 ml INH RQ6 [facility] Last Admin: 09/17/16 13:34 Dose: 3 ml Aspirin (Aspirin) 325 mg PO DAILY [facility] Last Admin: 09/17/16 11:15 Dose: 325 mg Carvedilol (Coreg) 3.125 mg PO BID [facility] Last Admin: 09/17/16 11:17 Dose: 3.125 mg Emollient Ointment (Vaseline Oint) 5 gm TOP BID PRN PRN Reason: Dry skin Epoetin Dominik (Procrit) 4,000 unit IV MWF [facility] Heparin Sodium (Porcine) (Heparin) 5,000 units SC Q12 [facility] Last Admin: 09/17/16 11:16 Dose: 5,000 units Insulin Aspart (Novolog) 0 unit SC ACHS [facility] PRN Reason: Protocol Last Admin: 09/17/16 07:55 Dose: 6 unit Insulin Glargine (Lantus) 30 unit SC DAILY [facility] Last Admin: 09/17/16 11:16 Dose: 30 unit Levothyroxine Sodium (Synthroid) 50 mcg PO DAILY@0630 [facility] Last Admin: 09/17/16 05:30 Dose: 50 mcg Pantoprazole Sodium (Protonix Inj) 40 mg IVP DAILY [facility] Last Admin: 09/17/16 11:16 Dose: 40 mg Rosuvastatin Calcium (Crestor) 10 mg PO HS [facility] Last Admin: 09/16/16 21:55 Dose: 10 mg - Labs Labs: 09/15/16 06:35 09/15/16 04:00 PT 11.7 SECONDS (9.7-12.2) 09/15/16 06:35 INR 1.0 09/15/16 06:35 APTT 29 SECONDS (21-34) 09/15/16 06:35 - Constitutional Appears: Well - Head Exam Head Exam: ATRAUMATIC, NORMAL INSPECTION, NORMOCEPHALIC - Eye Exam Eye Exam: EOMI, Normal appearance, PERRL Pupil Exam: NORMAL ACCOMODATION, PERRL - ENT Exam ENT Exam: Mucous Membranes Moist, Normal Exam - Neck Exam Neck Exam: Full ROM, Normal Inspection. absent: Lymphadenopathy - Respiratory Exam Respiratory Exam: Decreased Breath Sounds - Cardiovascular Exam Cardiovascular Exam: REGULAR RHYTHM, +S1, +S2 - GI/Abdominal Exam GI & Abdominal Exam: Soft, Diminished Bowel Sounds - Rectal Exam Rectal Exam: Deferred Assessment and Plan (1) CAD (coronary artery disease) Status: Acute (2) Cardiorenal syndrome with renal failure Status: Acute (3) DVT prophylaxis Status: Acute (4) Dialysis AV fistula malfunction Status: Acute (5) ESRD (end stage renal disease) Status: Acute (6) ESRD (end stage renal disease) Status: Acute (7) HTN (hypertension), benign Status: Acute (8) NSTEMI (non-ST elevation myocardial infarction) Status: Acute (9) Renal failure Status: Acute (10) Respiratory failure with hypoxia Status: Acute (11) Syncope Status: Acute (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 jamil vásquez on dialysis continue same bp meds f/u labs and cxr
--- NOTE | 2016-09-17 23:24 | CP.PCM.PN ---
Subjective - Date & Time of Evaluation Date of Evaluation: 09/17/16 Time of Evaluation: 17:20 - Subjective Subjective: Patient denies chest pain and dyspnea Physical Examination - Constitutional Appears: Non-toxic, No Acute Distress - Eye Exam Eye Exam: EOMI, Normal appearance - Respiratory Exam Respiratory Exam: NORMAL BREATHING PATTERN. absent: Respiratory Distress - Cardiovascular Exam Cardiovascular Exam: +S1, +S2 Additional comments: Right IJ Permacath in place, dressing clean and dry - Neurological Exam Neurological Exam: Alert, Awake - Psychiatric Exam Psychiatric exam: Normal Affect, Normal Mood - Skin Skin Exam: Dry, Normal Color Objective - Vital Signs/Intake and Output Vital Signs (last 24 hours): Temp Pulse Resp BP Pulse Ox 96.6 F L 85 16 134/56 L 100 09/17/16 20:03 09/17/16 20:03 09/17/16 20:03 09/17/16 20:03 09/17/16 20:03 Intake and Output: 09/17/16 09/18/16 18:59 06:59 Intake Total 175 Balance 175 - Medications Medications: Current Medications Albuterol/Ipratropium (Duoneb 3 Mg/0.5 Mg (3 Ml) Ud) 3 ml INH RQ6 [facility] Last Admin: 09/17/16 20:08 Dose: 3 ml Aspirin (Aspirin) 325 mg PO DAILY [facility] Last Admin: 09/17/16 11:15 Dose: 325 mg Carvedilol (Coreg) 3.125 mg PO BID [facility] Last Admin: 09/17/16 11:17 Dose: 3.125 mg Emollient Ointment (Vaseline Oint) 5 gm TOP BID PRN PRN Reason: Dry skin Epoetin Dominik (Procrit) 4,000 unit IV MWF [facility] Heparin Sodium (Porcine) (Heparin) 5,000 units SC Q12 [facility] Last Admin: 09/17/16 21:03 Dose: 5,000 units Insulin Aspart (Novolog) 0 unit SC ACHS [facility] PRN Reason: Protocol Last Admin: 09/17/16 21:04 Dose: Not Given Insulin Glargine (Lantus) 30 unit SC DAILY [facility] Last Admin: 09/17/16 11:16 Dose: 30 unit Levothyroxine Sodium (Synthroid) 50 mcg PO DAILY@0630 [facility] Last Admin: 09/17/16 05:30 Dose: 50 mcg Pantoprazole Sodium (Protonix Inj) 40 mg IVP DAILY [facility] Last Admin: 09/17/16 11:16 Dose: 40 mg Rosuvastatin Calcium (Crestor) 10 mg PO HS [facility] Last Admin: 09/17/16 21:03 Dose: 10 mg - Labs Labs: 09/15/16 06:35 09/15/16 04:00 PT 11.7 SECONDS (9.7-12.2) 09/15/16 06:35 INR 1.0 09/15/16 06:35 APTT 29 SECONDS (21-34) 09/15/16 06:35 Assessment and Plan - Assessment and Plan (Free Text) Assessment: (1) NSTEMI (non-ST elevation myocardial infarction) Status: Acute 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
[2016-09-18] MEDS: Albuterol-Ipratrop 3 mg / 0.5 (3 ml) UD INH SCH ×4 (01:22→19:48)
[2016-09-18 06:06] LABS: HEMATOCRIT 33.1 % (35.0-51.0); MEAN CELL VOLUME 93.1 fL (80.0-94.0); MEAN CORPUSCULAR HGB CONC 33.3 g/dL (33.0-37.0); WHITE BLOOD COUNT 10.4 K/uL (4.8-10.8)
[2016-09-18 06:34] LABS: POTASSIUM 4.4 mmol/L (3.6-5.2)
[2016-09-18 06:37] LABS: ALB/GLOB RATIO 1.1 (1.0-2.1); BILIRUBIN,TOTAL 0.8 mg/dL (0.2-1.3)
--- NOTE | 2016-09-18 07:51 | CP.PCM.PN ---
Subjective - Date & Time of Evaluation Date of Evaluation: 09/18/16 Time of Evaluation: 07:50 - Subjective Subjective: avf re scheduled for wednesday Objective - Vital Signs/Intake and Output Vital Signs (last 24 hours): Temp Pulse Resp BP Pulse Ox 98 F 80 12 158/77 H 99 09/18/16 04:00 09/18/16 04:00 09/18/16 04:00 09/18/16 04:00 09/18/16 04:00 Intake and Output: 09/18/16 09/18/16 06:59 18:59 Intake Total 240 Output Total 1 Balance 239 - Medications Medications: Current Medications Albuterol/Ipratropium (Duoneb 3 Mg/0.5 Mg (3 Ml) Ud) 3 ml INH RQ6 [facility] Last Admin: 09/18/16 07:49 Dose: 3 ml Aspirin (Aspirin) 325 mg PO DAILY [facility] Last Admin: 09/17/16 11:15 Dose: 325 mg Carvedilol (Coreg) 3.125 mg PO BID [facility] Last Admin: 09/17/16 11:17 Dose: 3.125 mg Emollient Ointment (Vaseline Oint) 5 gm TOP BID PRN PRN Reason: Dry skin Epoetin Dominik (Procrit) 4,000 unit IV MWF [facility] Heparin Sodium (Porcine) (Heparin) 5,000 units SC Q12 [facility] Last Admin: 09/17/16 21:03 Dose: 5,000 units Insulin Aspart (Novolog) 0 unit SC ACHS [facility] PRN Reason: Protocol Last Admin: 09/17/16 21:04 Dose: Not Given Insulin Glargine (Lantus) 30 unit SC DAILY [facility] Last Admin: 09/17/16 11:16 Dose: 30 unit Levothyroxine Sodium (Synthroid) 50 mcg PO DAILY@0630 [facility] Last Admin: 09/17/16 05:30 Dose: 50 mcg Pantoprazole Sodium (Protonix Inj) 40 mg IVP DAILY [facility] Last Admin: 09/17/16 11:16 Dose: 40 mg Rosuvastatin Calcium (Crestor) 10 mg PO HS [facility] Last Admin: 09/17/16 21:03 Dose: 10 mg - Labs Labs: 09/18/16 06:00 09/18/16 06:05 PT 11.7 SECONDS (9.7-12.2) 09/15/16 06:35 INR 1.0 09/15/16 06:35 APTT 29 SECONDS (21-34) 09/15/16 06:35
[2016-09-18] MEDS: (Novolog) Insulin Aspart, Recombinant 100 u/ml 10 ml vial SC SCH ×4 (08:26→22:02)
--- NOTE | 2016-09-18 08:26 | CP.PCM.PN ---
Subjective - Date & Time of Evaluation Date of Evaluation: 09/18/16 Time of Evaluation: 08:24 - Subjective Subjective: Alert, feels much better BP mod high- will observe with dialysis UO less than before AV access planned for 09/21 PTH elevated- will start calcitriol No c/o SOB, CPs, N, V, diarrhea, chills, fevers Objective - Vital Signs/Intake and Output Vital Signs (last 24 hours): Temp Pulse Resp BP Pulse Ox 98 F 80 12 158/77 H 99 09/18/16 04:00 09/18/16 04:00 09/18/16 04:00 09/18/16 04:00 09/18/16 04:00 Intake and Output: 09/18/16 09/18/16 06:59 18:59 Intake Total 240 Output Total 1 Balance 239 - Medications Medications: Current Medications Albuterol/Ipratropium (Duoneb 3 Mg/0.5 Mg (3 Ml) Ud) 3 ml INH RQ6 [facility] Last Admin: 09/18/16 07:49 Dose: 3 ml Aspirin (Aspirin) 325 mg PO DAILY [facility] Last Admin: 09/17/16 11:15 Dose: 325 mg Calcitriol (Rocaltrol) 0.25 mcg PO DAILY [facility] Carvedilol (Coreg) 3.125 mg PO BID [facility] Last Admin: 09/17/16 11:17 Dose: 3.125 mg Emollient Ointment (Vaseline Oint) 5 gm TOP BID PRN PRN Reason: Dry skin Epoetin Dominik (Procrit) 4,000 unit IV MWF [facility] Heparin Sodium (Porcine) (Heparin) 5,000 units SC Q12 [facility] Last Admin: 09/17/16 21:03 Dose: 5,000 units Insulin Aspart (Novolog) 0 unit SC ACHS [facility] PRN Reason: Protocol Last Admin: 09/17/16 21:04 Dose: Not Given Insulin Glargine (Lantus) 30 unit SC DAILY [facility] Last Admin: 09/17/16 11:16 Dose: 30 unit Levothyroxine Sodium (Synthroid) 50 mcg PO DAILY@0630 [facility] Last Admin: 09/17/16 05:30 Dose: 50 mcg Pantoprazole Sodium (Protonix Inj) 40 mg IVP DAILY [facility] Last Admin: 09/17/16 11:16 Dose: 40 mg Rosuvastatin Calcium (Crestor) 10 mg PO HS [facility] Last Admin: 09/17/16 21:03 Dose: 10 mg - Labs Labs: 09/18/16 06:00 09/18/16 06:05 PT 11.7 SECONDS (9.7-12.2) 09/15/16 06:35 INR 1.0 09/15/16 06:35 APTT 29 SECONDS (21-34) 09/15/16 06:35 - Constitutional Appears: No Acute Distress, Chronically Ill - Head Exam Head Exam: ATRAUMATIC, NORMAL INSPECTION - Eye Exam Eye Exam: EOMI, Normal appearance - Neck Exam Neck Exam: Normal Inspection. absent: Tenderness - Respiratory Exam Respiratory Exam: Clear to Ausculation Bilateral, NORMAL BREATHING PATTERN - Cardiovascular Exam Cardiovascular Exam: REGULAR RHYTHM, +S1 - GI/Abdominal Exam GI & Abdominal Exam: Soft. absent: Tenderness - Extremities Exam Extremities Exam: Normal Inspection. absent: Tenderness - Neurological Exam Neurological Exam: Alert, CN II-XII Intact - Skin Skin Exam: Dry, Warm Assessment and Plan (1) NSTEMI (non-ST elevation myocardial infarction) Status: Acute (2) Acute kidney injury superimposed on CKD Status: Chronic (3) Cardiorenal syndrome with renal failure Status: Acute (4) ESRD (end stage renal disease) Status: Acute (5) HTN (hypertension), benign Status: Acute - Assessment and Plan (Free Text) Plan: Dialysis now then MWF Start calcitriol Monitor BP AV access 09/21 Needs outpt HD placement- try [place]
[2016-09-18] MEDS ORDERED: EPOETIN ALFA 4,000 UNIT/ML ML Dialysis IV SCH (09:00)
[2016-09-18] MEDS: (Lantus) Insulin Glargine, Recombinant SC SCH (14:17)
--- NOTE | 2016-09-18 18:25 | CP.PCM.PN ---
Subjective - Date & Time of Evaluation Date of Evaluation: 09/18/16 Time of Evaluation: 14:20 - Subjective Subjective: afebrile no chest pain, SOB bp controlled Objective - Vital Signs/Intake and Output Vital Signs (last 24 hours): Temp Pulse Resp BP Pulse Ox 97.3 F L 89 13 113/62 98 09/18/16 13:15 09/18/16 14:00 09/18/16 14:00 09/18/16 13:15 09/18/16 14:00 Intake and Output: 09/18/16 09/18/16 06:59 18:59 Intake Total 240 Output Total 1 Balance 239 - Medications Medications: Current Medications Albuterol/Ipratropium (Duoneb 3 Mg/0.5 Mg (3 Ml) Ud) 3 ml INH RQ6 [facility] Last Admin: 09/18/16 14:26 Dose: 3 ml Aspirin (Aspirin) 325 mg PO DAILY [facility] Last Admin: 09/18/16 14:16 Dose: 325 mg Calcitriol (Rocaltrol) 0.25 mcg PO DAILY [facility] Last Admin: 09/18/16 14:17 Dose: 0.25 mcg Carvedilol (Coreg) 3.125 mg PO BID [facility] Last Admin: 09/18/16 14:16 Dose: 3.125 mg Emollient Ointment (Vaseline Oint) 5 gm TOP BID PRN PRN Reason: Dry skin Epoetin Dominik (Procrit) 4,000 unit IV MWF [facility] Heparin Sodium (Porcine) (Heparin) 5,000 units SC Q12 [facility] Last Admin: 09/18/16 14:16 Dose: 5,000 units Insulin Aspart (Novolog) 0 unit SC ACHS [facility] PRN Reason: Protocol Last Admin: 09/18/16 14:17 Dose: Not Given Insulin Glargine (Lantus) 30 unit SC DAILY [facility] Last Admin: 09/18/16 14:17 Dose: 30 unit Levothyroxine Sodium (Synthroid) 50 mcg PO DAILY@0630 [facility] Last Admin: 09/17/16 05:30 Dose: 50 mcg Pantoprazole Sodium (Protonix Inj) 40 mg IVP DAILY [facility] Last Admin: 09/18/16 14:17 Dose: 40 mg Rosuvastatin Calcium (Crestor) 10 mg PO HS [facility] Last Admin: 09/17/16 21:03 Dose: 10 mg - Labs Labs: 04/21/17 06:00 09/18/16 06:05 PT 11.7 SECONDS (9.7-12.2) 09/15/16 06:35 INR 1.0 09/15/16 06:35 APTT 29 SECONDS (21-34) 09/15/16 06:35 - Constitutional Appears: Well - Head Exam Head Exam: ATRAUMATIC, NORMAL INSPECTION, NORMOCEPHALIC - Eye Exam Eye Exam: EOMI, Normal appearance, PERRL Pupil Exam: NORMAL ACCOMODATION, PERRL - ENT Exam ENT Exam: Mucous Membranes Moist, Normal Exam - Neck Exam Neck Exam: Full ROM, Normal Inspection. absent: Lymphadenopathy - Respiratory Exam Respiratory Exam: Decreased Breath Sounds - Cardiovascular Exam Cardiovascular Exam: REGULAR RHYTHM, +S1, +S2 - GI/Abdominal Exam GI & Abdominal Exam: Soft, Diminished Bowel Sounds - Rectal Exam Rectal Exam: Deferred Assessment and Plan - Assessment and Plan (Free Text) Plan: charley Mccormick Dr, fahad mercer continue bp meds f/u labs calcitriol started due to elevated PTH
--- NOTE | 2016-09-18 22:49 | CP.PCM.PN ---
Subjective - Date & Time of Evaluation Date of Evaluation: 09/18/16 Time of Evaluation: 10:00 - Subjective Subjective: Patient comfortable No cardiac events Physical Examination - Constitutional Appears: Non-toxic, No Acute Distress - Eye Exam Eye Exam: EOMI, Normal appearance - Respiratory Exam Respiratory Exam: NORMAL BREATHING PATTERN. absent: Respiratory Distress - Cardiovascular Exam Cardiovascular Exam: +S1, +S2 Additional comments: Right IJ Permacath in place, dressing clean and dry - Neurological Exam Neurological Exam: Alert, Awake - Psychiatric Exam Psychiatric exam: Normal Affect, Normal Mood - Skin Skin Exam: Dry, Normal Color Objective - Vital Signs/Intake and Output Vital Signs (last 24 hours): Temp Pulse Resp BP Pulse Ox 98.2 F 85 18 126/66 98 09/18/16 21:30 09/18/16 21:30 09/18/16 21:30 09/18/16 21:30 09/18/16 21:30 - Medications Medications: Current Medications Albuterol/Ipratropium (Duoneb 3 Mg/0.5 Mg (3 Ml) Ud) 3 ml INH RQ6 [facility] Last Admin: 09/18/16 19:48 Dose: 3 ml Aspirin (Aspirin) 325 mg PO DAILY [facility] Last Admin: 09/18/16 14:16 Dose: 325 mg Calcitriol (Rocaltrol) 0.25 mcg PO DAILY [facility] Last Admin: 09/18/16 14:17 Dose: 0.25 mcg Carvedilol (Coreg) 3.125 mg PO BID [facility] Last Admin: 09/18/16 18:39 Dose: 3.125 mg Emollient Ointment (Vaseline Oint) 5 gm TOP BID PRN PRN Reason: Dry skin Epoetin Dominik (Procrit) 4,000 unit IV MWF [facility] Heparin Sodium (Porcine) (Heparin) 5,000 units SC Q12 [facility] Last Admin: 09/18/16 22:01 Dose: 5,000 units Insulin Aspart (Novolog) 0 unit SC ACHS [facility] PRN Reason: Protocol Last Admin: 09/18/16 22:02 Dose: 4 unit Insulin Glargine (Lantus) 30 unit SC DAILY [facility] Last Admin: 09/18/16 14:17 Dose: 30 unit Levothyroxine Sodium (Synthroid) 50 mcg PO DAILY@0630 [facility] Last Admin: 09/17/16 05:30 Dose: 50 mcg Pantoprazole Sodium (Protonix Inj) 40 mg IVP DAILY [facility] Last Admin: 09/18/16 14:17 Dose: 40 mg Rosuvastatin Calcium (Crestor) 10 mg PO HS [facility] Last Admin: 09/18/16 22:01 Dose: 10 mg - Labs Labs: 09/18/16 06:00 09/18/16 06:05 PT 11.7 SECONDS (9.7-12.2) 09/15/16 06:35 INR 1.0 09/15/16 06:35 APTT 29 SECONDS (21-34) 09/15/16 06:35 Assessment and Plan - Assessment and Plan (Free Text) Assessment: (1) NSTEMI (non-ST elevation myocardial infarction) Status: Acute 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
[2016-09-19] MEDS: Albuterol-Ipratrop 3 mg / 0.5 (3 ml) UD INH SCH ×4 (01:21→20:07)
[2016-09-19] MEDS: Levothyroxine 50 MCG TAB PO SCH (06:10)
[2016-09-19] MEDS: (Novolog) Insulin Aspart, Recombinant 100 u/ml 10 ml vial SC SCH ×4 (08:37→21:48)
--- NOTE | 2016-09-19 08:54 | CP.PCM.PN ---
Subjective - Date & Time of Evaluation Date of Evaluation: 09/19/16 Time of Evaluation: 08:51 - Subjective Subjective: Vascular Surgery - Dr. Frank Pt S&E. ETHEL. Pt denies any complaints. He is aware of plan for AVF on Wednesday. Left arm alert in place. Objective - Vital Signs/Intake and Output Vital Signs (last 24 hours): Temp Pulse Resp BP Pulse Ox 97.5 F L 84 20 143/80 96 09/18/16 23:25 09/19/16 08:00 09/18/16 23:25 09/18/16 23:25 09/18/16 23:25 Intake and Output: 09/19/16 09/19/16 06:59 18:59 Intake Total 300 Balance 300 - Medications Medications: Current Medications Albuterol/Ipratropium (Duoneb 3 Mg/0.5 Mg (3 Ml) Ud) 3 ml INH RQ6 [facility] Last Admin: 09/19/16 07:10 Dose: 3 ml Aspirin (Aspirin) 325 mg PO DAILY [facility] Last Admin: 09/18/16 14:16 Dose: 325 mg Calcitriol (Rocaltrol) 0.25 mcg PO DAILY [facility] Last Admin: 09/18/16 14:17 Dose: 0.25 mcg Carvedilol (Coreg) 3.125 mg PO BID [facility] Last Admin: 09/18/16 18:39 Dose: 3.125 mg Emollient Ointment (Vaseline Oint) 5 gm TOP BID PRN PRN Reason: Dry skin Epoetin Dominik (Procrit) 4,000 unit IV MWF [facility] Heparin Sodium (Porcine) (Heparin) 5,000 units SC Q12 [facility] Last Admin: 09/18/16 22:01 Dose: 5,000 units Insulin Aspart (Novolog) 0 unit SC ACHS [facility] PRN Reason: Protocol Last Admin: 09/19/16 08:37 Dose: 6 unit Insulin Glargine (Lantus) 30 unit SC DAILY [facility] Last Admin: 09/18/16 14:17 Dose: 30 unit Levothyroxine Sodium (Synthroid) 50 mcg PO DAILY@0630 [facility] Last Admin: 09/19/16 06:10 Dose: 50 mcg Pantoprazole Sodium (Protonix Inj) 40 mg IVP DAILY [facility] Last Admin: 09/18/16 14:17 Dose: 40 mg Rosuvastatin Calcium (Crestor) 10 mg PO HS [facility] Last Admin: 09/18/16 22:01 Dose: 10 mg - Labs Labs: 09/18/16 06:00 09/18/16 06:05 PT 11.7 SECONDS (9.7-12.2) 09/15/16 06:35 INR 1.0 09/15/16 06:35 APTT 29 SECONDS (21-34) 09/15/16 06:35 - Constitutional Appears: No Acute Distress - Head Exam Head Exam: ATRAUMATIC, NORMAL INSPECTION, NORMOCEPHALIC - Eye Exam Eye Exam: Normal appearance - Respiratory Exam Respiratory Exam: NORMAL BREATHING PATTERN. absent: Respiratory Distress - Neurological Exam Neurological Exam: Alert, Oriented x3 - Psychiatric Exam Psychiatric exam: Normal Affect, Normal Mood - Skin Skin Exam: Dry, Intact Assessment and Plan - Assessment and Plan (Free Text) Assessment: 81M w/ renal failure, s/p permacath 09/15 -Plan for AVF Thursday 09/[address] Frank -NPO @Midnight on Wednesday night Further reccs per Dr. Frank
[2016-09-19] MEDS: (Lantus) Insulin Glargine, Recombinant SC SCH (09:55)
--- NOTE | 2016-09-19 09:57 | CP.PCM.PN ---
Subjective - Date & Time of Evaluation Date of Evaluation: 09/19/16 Time of Evaluation: 09:54 - Subjective Subjective: Notes reviewed Feels better overall Now out of ICU Tolerating dialysis - last treatment 09/18 Considerations for andrew reviewed Appetite improved ROS: no cp or palp, no sob or cough, no n/v/d appetite good, no f/c, all other ros negative Objective - Vital Signs/Intake and Output Vital Signs (last 24 hours): Temp Pulse Resp BP Pulse Ox 97.6 F 84 20 163/60 H 96 09/19/16 07:05 09/19/16 08:00 09/19/16 07:05 09/19/16 07:05 09/19/16 07:05 Intake and Output: 09/19/16 09/19/16 06:59 18:59 Intake Total 300 Balance 300 - Medications Medications: Current Medications Albuterol/Ipratropium (Duoneb 3 Mg/0.5 Mg (3 Ml) Ud) 3 ml INH RQ6 [facility] Last Admin: 09/19/16 07:10 Dose: 3 ml Aspirin (Aspirin) 325 mg PO DAILY [facility] Last Admin: 09/18/16 14:16 Dose: 325 mg Calcitriol (Rocaltrol) 0.25 mcg PO DAILY [facility] Last Admin: 09/18/16 14:17 Dose: 0.25 mcg Carvedilol (Coreg) 3.125 mg PO BID [facility] Last Admin: 09/18/16 18:39 Dose: 3.125 mg Emollient Ointment (Vaseline Oint) 5 gm TOP BID PRN PRN Reason: Dry skin Epoetin Dominik (Procrit) 4,000 unit IV MWF [facility] Heparin Sodium (Porcine) (Heparin) 5,000 units SC Q12 [facility] Last Admin: 09/18/16 22:01 Dose: 5,000 units Insulin Aspart (Novolog) 0 unit SC ACHS [facility] PRN Reason: Protocol Last Admin: 09/19/16 08:37 Dose: 6 unit Insulin Glargine (Lantus) 30 unit SC DAILY [facility] Last Admin: 09/18/16 14:17 Dose: 30 unit Levothyroxine Sodium (Synthroid) 50 mcg PO DAILY@0630 [facility] Last Admin: 09/19/16 06:10 Dose: 50 mcg Pantoprazole Sodium (Protonix Inj) 40 mg IVP DAILY [facility] Last Admin: 09/18/16 14:17 Dose: 40 mg Rosuvastatin Calcium (Crestor) 10 mg PO HS [facility] Last Admin: 09/18/16 22:01 Dose: 10 mg - Labs Labs: 09/18/16 06:00 09/18/16 06:05 PT 11.7 SECONDS (9.7-12.2) 09/15/16 06:35 INR 1.0 09/15/16 06:35 APTT 29 SECONDS (21-34) 09/15/16 06:35 - Constitutional Appears: Well, Non-toxic - Head Exam Head Exam: ATRAUMATIC, NORMOCEPHALIC - Eye Exam Eye Exam: EOMI, Normal appearance - ENT Exam ENT Exam: Mucous Membranes Moist, Normal Oropharynx - Neck Exam Neck Exam: absent: Lymphadenopathy, Thyromegaly - Respiratory Exam Respiratory Exam: Clear to Ausculation Bilateral, NORMAL BREATHING PATTERN. absent: Rhonchi, Wheezes - Cardiovascular Exam Cardiovascular Exam: +S1, +S2. absent: JVD - GI/Abdominal Exam GI & Abdominal Exam: Soft, Normal Bowel Sounds - Extremities Exam Extremities Exam: absent: Joint Swelling, Pedal Edema - Neurological Exam Neurological Exam: Alert, Awake - Skin Skin Exam: Dry, Intact Assessment and Plan (1) Cardiorenal syndrome with renal failure Status: Acute (2) ESRD (end stage renal disease) Status: Acute (3) HTN (hypertension), benign Status: Acute (4) NSTEMI (non-ST elevation myocardial infarction) Status: Acute (5) DM2 (diabetes mellitus, type 2) Status: Chronic - Assessment and Plan (Free Text) Assessment: Maintain dialysis schedule - next treatment 09/21 Follow bp - maintain current meds Continue calcitriol Labs with dialysis 09/21 [facility] with dialysis
--- NOTE | 2016-09-19 13:52 | CP.PCM.PN ---
Subjective - Date & Time of Evaluation Date of Evaluation: 09/19/16 Time of Evaluation: 11:20 - Subjective Subjective: afebrile appetite improving feels better and comfortable Objective - Vital Signs/Intake and Output Vital Signs (last 24 hours): Temp Pulse Resp BP Pulse Ox 97.6 F 84 20 163/60 H 96 09/19/16 07:05 09/19/16 08:00 09/19/16 07:05 09/19/16 07:05 09/19/16 07:05 Intake and Output: 09/19/16 09/19/16 06:59 18:59 Intake Total 300 Balance 300 - Medications Medications: Current Medications Albuterol/Ipratropium (Duoneb 3 Mg/0.5 Mg (3 Ml) Ud) 3 ml INH RQ6 [facility] Last Admin: 09/19/16 07:10 Dose: 3 ml Aspirin (Aspirin) 325 mg PO DAILY [facility] Last Admin: 09/19/16 09:55 Dose: 325 mg Calcitriol (Rocaltrol) 0.25 mcg PO DAILY [facility] Last Admin: 09/19/16 09:54 Dose: 0.25 mcg Carvedilol (Coreg) 3.125 mg PO BID [facility] Last Admin: 09/19/16 09:55 Dose: 3.125 mg Emollient Ointment (Vaseline Oint) 5 gm TOP BID PRN PRN Reason: Dry skin Epoetin Dominik (Procrit) 4,000 unit IV MWF [facility] Insulin Aspart (Novolog) 0 unit SC ACHS [facility] PRN Reason: Protocol Last Admin: 09/19/16 12:56 Dose: 8 unit Insulin Glargine (Lantus) 30 unit SC DAILY [facility] Last Admin: 09/19/16 09:55 Dose: 30 unit Levothyroxine Sodium (Synthroid) 50 mcg PO DAILY@0630 [facility] Last Admin: 09/19/16 06:10 Dose: 50 mcg Pantoprazole Sodium (Protonix Inj) 40 mg IVP DAILY [facility] Last Admin: 09/19/16 09:54 Dose: 40 mg Rosuvastatin Calcium (Crestor) 10 mg PO HS [facility] Last Admin: 09/18/16 22:01 Dose: 10 mg - Labs Labs: 09/18/16 06:00 09/18/16 06:05 PT 11.7 SECONDS (9.7-12.2) 09/15/16 06:35 INR 1.0 09/15/16 06:35 APTT 29 SECONDS (21-34) 09/15/16 06:35 - Constitutional Appears: Well - Head Exam Head Exam: ATRAUMATIC, NORMAL INSPECTION, NORMOCEPHALIC - Eye Exam Eye Exam: EOMI, Normal appearance, PERRL Pupil Exam: NORMAL ACCOMODATION, PERRL - ENT Exam ENT Exam: Mucous Membranes Moist, Normal Exam - Neck Exam Neck Exam: Full ROM, Normal Inspection. absent: Lymphadenopathy - Respiratory Exam Respiratory Exam: Decreased Breath Sounds - Cardiovascular Exam Cardiovascular Exam: REGULAR RHYTHM, +S1, +S2 - GI/Abdominal Exam GI & Abdominal Exam: Soft, Diminished Bowel Sounds - Rectal Exam Rectal Exam: Deferred Assessment and Plan - Assessment and Plan (Free Text) Plan: Dr. charley vásquez continue mx as orderd
--- NOTE | 2016-09-19 19:07 | CP.PCM.PN ---
Subjective - Date & Time of Evaluation Date of Evaluation: 09/19/16 Time of Evaluation: 07:45 - Subjective Subjective: Patient without chest pain and dyspnea Continue medical therapy Physical Examination - Constitutional Appears: Non-toxic, No Acute Distress - Eye Exam Eye Exam: EOMI, Normal appearance - Respiratory Exam Respiratory Exam: NORMAL BREATHING PATTERN. absent: Respiratory Distress - Cardiovascular Exam Cardiovascular Exam: +S1, +S2 Additional comments: Right IJ Permacath in place, dressing clean and dry - Neurological Exam Neurological Exam: Alert, Awake - Psychiatric Exam Psychiatric exam: Normal Affect, Normal Mood - Skin Skin Exam: Dry, Normal Color Objective - Vital Signs/Intake and Output Vital Signs (last 24 hours): Temp Pulse Resp BP Pulse Ox 97.3 F L 61 20 133/68 94 L 09/19/16 15:10 09/19/16 15:10 09/19/16 15:10 09/19/16 15:10 09/19/16 15:10 - Medications Medications: Current Medications Albuterol/Ipratropium (Duoneb 3 Mg/0.5 Mg (3 Ml) Ud) 3 ml INH RQ6 [facility] Last Admin: 09/19/16 13:10 Dose: 3 ml Aspirin (Aspirin) 325 mg PO DAILY [facility] Last Admin: 09/19/16 09:55 Dose: 325 mg Calcitriol (Rocaltrol) 0.25 mcg PO DAILY [facility] Last Admin: 09/19/16 09:54 Dose: 0.25 mcg Carvedilol (Coreg) 3.125 mg PO BID [facility] Last Admin: 09/19/16 18:24 Dose: 3.125 mg Emollient Ointment (Vaseline Oint) 5 gm TOP BID PRN PRN Reason: Dry skin Epoetin Dominik (Procrit) 4,000 unit IV MWF [facility] Insulin Aspart (Novolog) 0 unit SC ACHS [facility] PRN Reason: Protocol Last Admin: 09/19/16 12:56 Dose: 8 unit Insulin Glargine (Lantus) 30 unit SC DAILY [facility] Last Admin: 09/19/16 09:55 Dose: 30 unit Levothyroxine Sodium (Synthroid) 50 mcg PO DAILY@0630 [facility] Last Admin: 09/19/16 06:10 Dose: 50 mcg Pantoprazole Sodium (Protonix Inj) 40 mg IVP DAILY [facility] Last Admin: 09/19/16 09:54 Dose: 40 mg Rosuvastatin Calcium (Crestor) 10 mg PO HS [facility] Last Admin: 09/18/16 22:01 Dose: 10 mg - Labs Labs: 09/18/16 06:00 09/18/16 06:05 PT 11.7 SECONDS (9.7-12.2) 09/15/16 06:35 INR 1.0 09/15/16 06:35 APTT 29 SECONDS (21-34) 09/15/16 06:35 Assessment and Plan - Assessment and Plan (Free Text) Assessment: (1) NSTEMI (non-ST elevation myocardial infarction) Status: Acute 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
[2016-09-20] MEDS: Levothyroxine 50 MCG TAB PO SCH (06:16)
[2016-09-20] MEDS: (Novolog) Insulin Aspart, Recombinant 100 u/ml 10 ml vial SC SCH ×4 (08:08→22:02)
--- NOTE | 2016-09-20 09:29 | CP.PCM.PN ---
Subjective - Date & Time of Evaluation Date of Evaluation: 09/20/16 Time of Evaluation: 09:00 - Subjective Subjective: VASCULAR SURGERY PROGRESS NOTE FOR DR. AZAR Patient seen and examined at bedside. He is doing well, denies pain at the permacath site. Tolerating his diet. Left arm alert in place. Objective - Vital Signs/Intake and Output Vital Signs (last 24 hours): Temp Pulse Resp BP Pulse Ox 98.5 F 86 20 119/60 96 09/19/16 23:00 09/19/16 23:40 09/19/16 23:00 09/19/16 23:00 09/19/16 23:00 - Medications Medications: Current Medications Aspirin (Aspirin) 325 mg PO DAILY [facility] Last Admin: 09/19/16 09:55 Dose: 325 mg Calcitriol (Rocaltrol) 0.25 mcg PO DAILY [facility] Last Admin: 09/19/16 09:54 Dose: 0.25 mcg Carvedilol (Coreg) 3.125 mg PO BID [facility] Last Admin: 09/19/16 18:24 Dose: 3.125 mg Emollient Ointment (Vaseline Oint) 5 gm TOP BID PRN PRN Reason: Dry skin Epoetin Dominik (Procrit) 4,000 unit IV MWF [facility] Insulin Aspart (Novolog) 0 unit SC ACHS [facility] PRN Reason: Protocol Last Admin: 09/20/16 08:08 Dose: 4 unit Insulin Glargine (Lantus) 30 unit SC DAILY [facility] Last Admin: 09/19/16 09:55 Dose: 30 unit Pantoprazole Sodium (Protonix Inj) 40 mg IVP DAILY [facility] Last Admin: 09/19/16 09:54 Dose: 40 mg - Labs Labs: 09/18/16 06:00 09/18/16 06:05 PT 11.7 SECONDS (9.7-12.2) 09/15/16 06:35 INR 1.0 09/15/16 06:35 APTT 29 SECONDS (21-34) 09/15/16 06:35 - Constitutional Appears: Non-toxic, No Acute Distress - Eye Exam Eye Exam: EOMI, Normal appearance - Respiratory Exam Respiratory Exam: NORMAL BREATHING PATTERN. absent: Respiratory Distress - Cardiovascular Exam Cardiovascular Exam: +S1, +S2 Additional comments: Right IJ Permacath in place, dressing clean and dry - Neurological Exam Neurological Exam: Alert, Awake - Psychiatric Exam Psychiatric exam: Normal Affect, Normal Mood - Skin Skin Exam: Dry, Normal Color Assessment and Plan - Assessment and Plan (Free Text) Assessment: 81yo M with renal failure, now s/p Right jugular vein Permacath POD#5 - Patient getting dialysis via permacath - AV fistula tomorrow - NPO past midnight - Left upper extremity restrictions - Discussed plan with Dr. Monika Florez PGY-2
[2016-09-20] MEDS: (Lantus) Insulin Glargine, Recombinant SC SCH (10:03)
--- NOTE | 2016-09-20 11:37 | CP.PCM.PN ---
Subjective - Date & Time of Evaluation Date of Evaluation: 09/20/16 Time of Evaluation: 11:20 - Subjective Subjective: clinically same Objective - Vital Signs/Intake and Output Vital Signs (last 24 hours): Temp Pulse Resp BP Pulse Ox 98.5 F 86 20 119/60 96 09/19/16 23:00 09/19/16 23:40 09/19/16 23:00 09/19/16 23:00 09/19/16 23:00 - Medications Medications: Current Medications Aspirin (Aspirin) 325 mg PO DAILY [facility] Last Admin: 09/20/16 10:03 Dose: 325 mg Calcitriol (Rocaltrol) 0.25 mcg PO DAILY [facility] Last Admin: 09/20/16 10:01 Dose: 0.25 mcg Carvedilol (Coreg) 3.125 mg PO BID [facility] Last Admin: 09/20/16 10:03 Dose: 3.125 mg Emollient Ointment (Vaseline Oint) 5 gm TOP BID PRN PRN Reason: Dry skin Epoetin Dominik (Procrit) 4,000 unit IV MWF [facility] Insulin Aspart (Novolog) 0 unit SC ACHS [facility] PRN Reason: Protocol Last Admin: 09/20/16 08:08 Dose: 4 unit Insulin Glargine (Lantus) 30 unit SC DAILY [facility] Last Admin: 09/20/16 10:03 Dose: 30 unit Pantoprazole Sodium (Protonix Inj) 40 mg IVP DAILY [facility] Last Admin: 09/20/16 10:03 Dose: 40 mg - Labs Labs: 09/18/16 06:00 09/18/16 06:05 PT 11.7 SECONDS (9.7-12.2) 09/15/16 06:35 INR 1.0 09/15/16 06:35 APTT 29 SECONDS (21-34) 09/15/16 06:35 - Constitutional Appears: Well - Head Exam Head Exam: ATRAUMATIC, NORMAL INSPECTION, NORMOCEPHALIC - Eye Exam Eye Exam: EOMI, Normal appearance, PERRL Pupil Exam: NORMAL ACCOMODATION, PERRL - ENT Exam ENT Exam: Mucous Membranes Moist, Normal Exam - Neck Exam Neck Exam: Full ROM, Normal Inspection. absent: Lymphadenopathy - Respiratory Exam Respiratory Exam: Decreased Breath Sounds - Cardiovascular Exam Cardiovascular Exam: REGULAR RHYTHM, +S1, +S2 - GI/Abdominal Exam GI & Abdominal Exam: Soft, Diminished Bowel Sounds - Rectal Exam Rectal Exam: Deferred Assessment and Plan - Assessment and Plan (Free Text) Plan: DR. charley vásquez continue mx as orderd
--- NOTE | 2016-09-20 15:11 | CP.PCM.PN ---
Subjective - Date & Time of Evaluation Date of Evaluation: 09/20/16 Time of Evaluation: 09:00 - Subjective Subjective: afebrile alert nad for hd today iv antibiotics on hold Objective - Vital Signs/Intake and Output Vital Signs (last 24 hours): Temp Pulse Resp BP Pulse Ox 98.5 F 90 20 119/60 96 09/19/16 23:00 09/20/16 08:00 09/19/16 23:00 09/19/16 23:00 09/19/16 23:00 - Medications Medications: Current Medications Aspirin (Aspirin) 325 mg PO DAILY [facility] Last Admin: 09/20/16 10:03 Dose: 325 mg Calcitriol (Rocaltrol) 0.25 mcg PO DAILY [facility] Last Admin: 09/20/16 10:01 Dose: 0.25 mcg Carvedilol (Coreg) 3.125 mg PO BID [facility] Last Admin: 09/20/16 10:03 Dose: 3.125 mg Emollient Ointment (Vaseline Oint) 5 gm TOP BID PRN PRN Reason: Dry skin Epoetin Dominik (Procrit) 4,000 unit IV MWF [facility] Insulin Aspart (Novolog) 0 unit SC ACHS [facility] PRN Reason: Protocol Last Admin: 09/20/16 13:20 Dose: 10 unit Insulin Glargine (Lantus) 30 unit SC DAILY [facility] Last Admin: 09/20/16 10:03 Dose: 30 unit Pantoprazole Sodium (Protonix Inj) 40 mg IVP DAILY [facility] Last Admin: 09/20/16 10:03 Dose: 40 mg - Labs Labs: 09/18/16 06:00 09/18/16 06:05 PT 11.7 SECONDS (9.7-12.2) 09/15/16 06:35 INR 1.0 09/15/16 06:35 APTT 29 SECONDS (21-34) 09/15/16 06:35 - Constitutional Appears: Non-toxic, Cachectic, Chronically Ill - Head Exam Head Exam: NORMOCEPHALIC - Eye Exam Eye Exam: PERRL. absent: Scleral icterus - ENT Exam ENT Exam: Mucous Membranes Dry, Normal External Ear Exam, Normal Oropharynx - Neck Exam Neck Exam: absent: Lymphadenopathy - Respiratory Exam Respiratory Exam: Decreased Breath Sounds, Rhonchi - Cardiovascular Exam Cardiovascular Exam: REGULAR RHYTHM, +S1, +S2 - GI/Abdominal Exam GI & Abdominal Exam: Distended, Soft - Rectal Exam Rectal Exam: Deferred - Exam Exam: NORMAL INSPECTION - Back Exam Back Exam: absent: CVA tenderness (L), CVA tenderness (R) - Neurological Exam Neurological Exam: Alert, Awake, Oriented x3 - Psychiatric Exam Psychiatric exam: Normal Mood - Skin Skin Exam: Dry Assessment and Plan (1) Cardiorenal syndrome with renal failure Status: Acute (2) NSTEMI (non-ST elevation myocardial infarction) Status: Acute (3) Pulmonary edema Status: Resolved (4) Respiratory failure with hypoxia Status: Acute (5) DVT prophylaxis Status: Acute (6) Renal failure Status: Acute (7) Syncope Status: Acute (8) Acute kidney injury superimposed on CKD Status: Chronic
--- NOTE | 2016-09-20 21:05 | CP.PCM.PN ---
Subjective - Date & Time of Evaluation Date of Evaluation: 09/20/16 Time of Evaluation: 17:00 - Subjective Subjective: Patient seen and examined at bedside. Denies chest pain Physical Examination - Constitutional Appears: Non-toxic, No Acute Distress - Eye Exam Eye Exam: EOMI, Normal appearance - Respiratory Exam Respiratory Exam: NORMAL BREATHING PATTERN. absent: Respiratory Distress - Cardiovascular Exam Cardiovascular Exam: +S1, +S2 Additional comments: Right IJ Permacath in place, dressing clean and dry - Neurological Exam Neurological Exam: Alert, Awake - Psychiatric Exam Psychiatric exam: Normal Affect, Normal Mood - Skin Skin Exam: Dry, Normal Color Objective - Vital Signs/Intake and Output Vital Signs (last 24 hours): Temp Pulse Resp BP Pulse Ox 98.6 F 75 20 115/64 98 09/20/16 17:36 09/20/16 18:56 09/20/16 17:36 09/20/16 18:56 09/20/16 18:56 - Medications Medications: Current Medications Aspirin (Aspirin) 325 mg PO DAILY [facility] Last Admin: 09/20/16 10:03 Dose: 325 mg Calcitriol (Rocaltrol) 0.25 mcg PO DAILY [facility] Last Admin: 09/20/16 10:01 Dose: 0.25 mcg Carvedilol (Coreg) 3.125 mg PO BID [facility] Last Admin: 09/20/16 21:02 Dose: Not Given Emollient Ointment (Vaseline Oint) 5 gm TOP BID PRN PRN Reason: Dry skin Epoetin Dominik (Procrit) 4,000 unit IV F [facility] Insulin Aspart (Novolog) 0 unit SC [facility] PRN Reason: Protocol Last Admin: 09/20/16 21:02 Dose: Not Given Insulin Glargine (Lantus) 30 unit SC DAILY [facility] Last Admin: 09/20/16 10:03 Dose: 30 unit Pantoprazole Sodium (Protonix Inj) 40 mg IVP DAILY [facility] Last Admin: 09/20/16 10:03 Dose: 40 mg - Labs Labs: 09/18/16 06:00 09/18/16 06:05 PT 11.7 SECONDS (9.7-12.2) 09/15/16 06:35 INR 1.0 09/15/16 06:35 APTT 29 SECONDS (21-34) 09/15/16 06:35 Assessment and Plan - Assessment and Plan (Free Text) Assessment: (1) NSTEMI (non-ST elevation myocardial infarction) Status: Acute 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
[2016-09-21] MEDS ORDERED: Levothyroxine 50 MCG TAB PO SCH (06:30)
[2016-09-21] MEDS: (Novolog) Insulin Aspart, Recombinant 100 u/ml 10 ml vial SC SCH ×6 (08:18→22:57)
[2016-09-21 08:21] LABS: CALCIUM 7.7 mg/dl (8.6-10.4)
[2016-09-21] MEDS ORDERED: Bupivacaine 0.5% Inj(30mL) ONE (08:52)
[2016-09-21] MEDS ORDERED: Lidocaine 1% Inj (20ml) ONE ×2 (08:53→09:27)
[2016-09-21] MEDS: EPOETIN ALFA 4,000 UNIT/ML ML Dialysis IV SCH ×3 (09:00→17:21)
[2016-09-21] MEDS ORDERED: Midazolam 2 MG/2 ML VIAL ONE (09:03)
[2016-09-21] MEDS ORDERED: HEPARIN-NS 5,000 UNITS/500 ML 500 ML IV ONE (09:15)
[2016-09-21] MEDS ORDERED: ceFAZolin 1 gm FROZEN Premix 50 ML IVPB ONE (09:27)
[2016-09-21] MEDS: (Lantus) Insulin Glargine, Recombinant SC SCH (10:00)
[2016-09-21] MEDS ORDERED: HYDROmorphone 0.5 mg/0.5 ml ISec IVP PRN (11:29)
--- NOTE | 2016-09-21 12:06 | OP ---
PROCEDURE DATE: 09/21/2016 PREOPERATIVE DIAGNOSIS: Renal failure. POSTOPERATIVE DIAGNOSIS: Renal failure. PROCEDURE CARRIED OUT: Arteriovenous fistula, left elbow. SURGEON: Lenard Frank Jr., MD RODENT EXTERMINATOR: Dr. Banegas. ANESTHESIOLOGIST: Dr. Nayak, supraclavicular block. INDICATIONS: The patient is an elderly man with a history of cardiac problems presently dialyzed ___ _ catheter. OPERATIVE FINDINGS: Initially, we created a [id number] fistula in the antecubital vein with good f low down into the cephalic vein at the wrist. However, this resulted in loss of the pulse at the wri st, despite augmentation maneuvers, etc. We eventually had to ligate the distal portion of the fistu la and convert this into and end-to-side type of fistula. However, there was still excellent flow th rough the fistula into the basilic vein and there still was return of a strong pulse at the wrist. PROCEDURE: The patient was given the supraclavicular block and standard antibiotics were given, etc. The vein and artery were dissected after they had been marked on the skin, and a [id number] fistu la was then created which was later revised to an end-to-side fistula. This was done using loupe mag nification and heparin anticoagulation. BLOOD LOSS FOR THE PROCEDURE: 20 mL. OPERATION CARRIED OUT: Arteriovenous fistula, left elbow. The possibility of revising this or needi ng to elevate it remains in the future. Lenard Frank Jr., MD cc:Michele Cain MD 56 TT: 09/21/2016 12:05:58 mn
--- NOTE | 2016-09-21 13:26 | CP.PCM.PN ---
Subjective - Date & Time of Evaluation Date of Evaluation: 09/21/16 Time of Evaluation: 13:23 - Subjective Subjective: s/p av fistula-has bruit For dialysis later BP sl high Tolerating dialysis course no new complaints Objective - Vital Signs/Intake and Output Vital Signs (last 24 hours): Temp Pulse Resp BP Pulse Ox 97.8 F 82 18 168/72 H 100 09/21/16 12:00 09/21/16 12:00 09/21/16 12:00 09/21/16 12:00 09/21/16 12:00 Intake and Output: 09/21/16 09/21/16 06:59 18:59 Intake Total 150 Balance 150 - Medications Medications: Current Medications Aspirin (Aspirin) 325 mg PO DAILY [facility] Last Admin: 09/21/16 10:00 Dose: Not Given Calcitriol (Rocaltrol) 0.25 mcg PO DAILY [facility] Last Admin: 09/21/16 13:20 Dose: 0.25 mcg Carvedilol (Coreg) 3.125 mg PO BID [facility] Last Admin: 09/21/16 10:00 Dose: Not Given Emollient Ointment (Vaseline Oint) 5 gm TOP BID PRN PRN Reason: Dry skin Epoetin Dominik (Procrit) 4,000 unit IV MWF [facility] Last Admin: 09/21/16 09:00 Dose: Not Given Hydromorphone HCl (Dilaudid) 0.25 mg IVP Q6H PRN PRN Reason: Pain, moderate (4-7) Insulin Aspart (Novolog) 0 unit SC ACHS [facility] PRN Reason: Protocol Last Admin: 09/21/16 13:18 Dose: 2 unit Insulin Glargine (Lantus) 30 unit SC DAILY [facility] Last Admin: 09/21/16 10:00 Dose: Not Given Levothyroxine Sodium (Synthroid) 50 mcg PO DAILY@0630 [facility] Pantoprazole Sodium (Protonix Inj) 40 mg IVP DAILY [facility] Last Admin: 09/21/16 13:20 Dose: 40 mg - Labs Labs: 09/18/16 06:00 09/21/16 08:03 PT 11.7 SECONDS (9.7-12.2) 09/15/16 06:35 INR 1.0 09/15/16 06:35 APTT 29 SECONDS (21-34) 09/15/16 06:35 - Constitutional Appears: No Acute Distress, Chronically Ill - Head Exam Head Exam: ATRAUMATIC, NORMAL INSPECTION - Eye Exam Eye Exam: EOMI, Normal appearance - Neck Exam Neck Exam: Full ROM. absent: Normal Inspection - Respiratory Exam Respiratory Exam: Clear to Ausculation Bilateral, NORMAL BREATHING PATTERN - Cardiovascular Exam Cardiovascular Exam: REGULAR RHYTHM, +S1 - GI/Abdominal Exam GI & Abdominal Exam: Soft. absent: Tenderness - Extremities Exam Extremities Exam: Normal Inspection. absent: Tenderness - Neurological Exam Neurological Exam: Alert, CN II-XII Intact - Skin Skin Exam: Dry, Warm Assessment and Plan (1) NSTEMI (non-ST elevation myocardial infarction) Status: Acute (2) Acute kidney injury superimposed on CKD Status: Chronic (3) Cardiorenal syndrome with renal failure Status: Acute (4) ESRD (end stage renal disease) Status: Acute (5) HTN (hypertension), benign Status: Acute - Assessment and Plan (Free Text) Plan: Dialysis MWF Monitor BP Outpt dialysis placement
--- NOTE | 2016-09-21 17:30 | CP.PCM.PN ---
Subjective - Date & Time of Evaluation Date of Evaluation: 09/21/16 Time of Evaluation: 11:40 - Subjective Subjective: afebrile alert, comfortable Objective - Vital Signs/Intake and Output Vital Signs (last 24 hours): Temp Pulse Resp BP Pulse Ox 97.4 F L 57 L 16 147/67 96 09/21/16 14:19 09/21/16 14:19 09/21/16 14:00 09/21/16 16:31 09/21/16 14:19 Intake and Output: 09/21/16 09/21/16 06:59 18:59 Intake Total 150 Balance 150 - Medications Medications: Current Medications Aspirin (Aspirin) 325 mg PO DAILY [facility] Last Admin: 09/21/16 10:00 Dose: Not Given Calcitriol (Rocaltrol) 0.25 mcg PO DAILY [facility] Last Admin: 09/21/16 13:20 Dose: 0.25 mcg Carvedilol (Coreg) 3.125 mg PO BID [facility] Last Admin: 09/21/16 10:00 Dose: Not Given Emollient Ointment (Vaseline Oint) 5 gm TOP BID PRN PRN Reason: Dry skin Epoetin Dominik (Procrit) 4,000 unit IV MWF [facility] Last Admin: 09/21/16 17:21 Dose: 4,000 unit Hydromorphone HCl (Dilaudid) 0.25 mg IVP Q6H PRN PRN Reason: Pain, moderate (4-7) Insulin Aspart (Novolog) 0 unit SC ACHS [facility] PRN Reason: Protocol Last Admin: 09/21/16 13:18 Dose: 2 unit Insulin Glargine (Lantus) 30 unit SC DAILY [facility] Last Admin: 09/21/16 10:00 Dose: Not Given Levothyroxine Sodium (Synthroid) 50 mcg PO DAILY@0630 [facility] Pantoprazole Sodium (Protonix Inj) 40 mg IVP DAILY [facility] Last Admin: 09/21/16 13:20 Dose: 40 mg - Labs Labs: 09/18/16 06:00 09/21/16 08:03 PT 11.7 SECONDS (9.7-12.2) 09/15/16 06:35 INR 1.0 09/15/16 06:35 APTT 29 SECONDS (21-34) 09/15/16 06:35 - Constitutional Appears: Well - Head Exam Head Exam: ATRAUMATIC, NORMAL INSPECTION, NORMOCEPHALIC - Eye Exam Eye Exam: EOMI, Normal appearance, PERRL Pupil Exam: NORMAL ACCOMODATION, PERRL - ENT Exam ENT Exam: Mucous Membranes Moist, Normal Exam - Neck Exam Neck Exam: Full ROM, Normal Inspection. absent: Lymphadenopathy - Respiratory Exam Respiratory Exam: Decreased Breath Sounds - Cardiovascular Exam Cardiovascular Exam: REGULAR RHYTHM, +S1, +S2 - GI/Abdominal Exam GI & Abdominal Exam: Soft, Diminished Bowel Sounds - Rectal Exam Rectal Exam: Deferred Assessment and Plan - Assessment and Plan (Free Text) Plan: Dr. fahad Cain continue same mx as orderd
--- NOTE | 2016-09-21 20:51 | CP.PCM.PN ---
Subjective - Date & Time of Evaluation Date of Evaluation: 09/21/16 Time of Evaluation: 15:10 - Subjective Subjective: Patient seen and examined in dialysis room Comfortable Physical Examination - Constitutional Appears: Non-toxic, No Acute Distress - Eye Exam Eye Exam: EOMI, Normal appearance - Respiratory Exam Respiratory Exam: NORMAL BREATHING PATTERN. absent: Respiratory Distress - Cardiovascular Exam Cardiovascular Exam: +S1, +S2 Additional comments: Right IJ Permacath in place, dressing clean and dry - Neurological Exam Neurological Exam: Alert, Awake - Psychiatric Exam Psychiatric exam: Normal Affect, Normal Mood - Skin Skin Exam: Dry, Normal Color Objective - Vital Signs/Intake and Output Vital Signs (last 24 hours): Temp Pulse Resp BP Pulse Ox 98.7 F 95 H 20 146/81 95 09/21/16 18:33 09/21/16 18:33 09/21/16 18:33 09/21/16 18:33 09/21/16 18:33 Intake and Output: 09/21/16 09/22/16 18:59 06:59 Intake Total 150 Balance 150 - Medications Medications: Current Medications Aspirin (Aspirin) 325 mg PO DAILY [facility] Last Admin: 09/21/16 10:00 Dose: Not Given Calcitriol (Rocaltrol) 0.25 mcg PO DAILY [facility] Last Admin: 09/21/16 13:20 Dose: 0.25 mcg Carvedilol (Coreg) 3.125 mg PO BID [facility] Last Admin: 09/21/16 18:45 Dose: 3.125 mg Emollient Ointment (Vaseline Oint) 5 gm TOP BID PRN PRN Reason: Dry skin Epoetin Dominik (Procrit) 4,000 unit IV MWF [facility] Last Admin: 09/21/16 17:21 Dose: 4,000 unit Hydromorphone HCl (Dilaudid) 0.25 mg IVP Q6H PRN PRN Reason: Pain, moderate (4-7) Insulin Aspart (Novolog) 0 unit SC ACHS [facility] PRN Reason: Protocol Last Admin: 09/21/16 18:45 Dose: 6 unit Insulin Glargine (Lantus) 30 unit SC DAILY [facility] Last Admin: 09/21/16 10:00 Dose: Not Given Levothyroxine Sodium (Synthroid) 50 mcg PO DAILY@0630 [facility] Pantoprazole Sodium (Protonix Inj) 40 mg IVP DAILY [facility] Last Admin: 09/21/16 13:20 Dose: 40 mg - Labs Labs: 09/18/16 06:00 09/21/16 08:03 PT 11.7 SECONDS (9.7-12.2) 09/15/16 06:35 INR 1.0 09/15/16 06:35 APTT 29 SECONDS (21-34) 09/15/16 06:35 Assessment and Plan - Assessment and Plan (Free Text) Assessment: (1) NSTEMI (non-ST elevation myocardial infarction) Status: Acute 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
[2016-09-22] MEDS: (Novolog) Insulin Aspart, Recombinant 100 u/ml 10 ml vial SC SCH ×4 (08:41→22:11)
--- NOTE | 2016-09-22 09:02 | CP.PCM.PN ---
Subjective - Date & Time of Evaluation Date of Evaluation: 09/22/16 Time of Evaluation: 09:00 - Subjective Subjective: Stable dialysis 09/21- UF 2000ml Feels well AV F with bruit No new complaints Objective - Vital Signs/Intake and Output Vital Signs (last 24 hours): Temp Pulse Resp BP Pulse Ox 98.7 F 92 H 18 150/60 96 09/22/16 07:07 09/22/16 07:07 09/22/16 07:07 09/22/16 07:07 09/22/16 07:07 - Medications Medications: Current Medications Aspirin (Aspirin) 325 mg PO DAILY [facility] Last Admin: 09/21/16 10:00 Dose: Not Given Calcitriol (Rocaltrol) 0.25 mcg PO DAILY [facility] Last Admin: 09/21/16 13:20 Dose: 0.25 mcg Carvedilol (Coreg) 3.125 mg PO BID [facility] Last Admin: 09/21/16 18:45 Dose: 3.125 mg Emollient Ointment (Vaseline Oint) 5 gm TOP BID PRN PRN Reason: Dry skin Enoxaparin Sodium (Lovenox) 30 mg SC DAILY [facility] Epoetin Dominik (Procrit) 4,000 unit IV MWF [facility] Last Admin: 09/21/16 17:21 Dose: 4,000 unit Hydromorphone HCl (Dilaudid) 0.25 mg IVP Q6H PRN PRN Reason: Pain, moderate (4-7) Insulin Aspart (Novolog) 0 unit SC ACHS [facility] PRN Reason: Protocol Last Admin: 09/22/16 08:41 Dose: 6 unit Insulin Glargine (Lantus) 30 unit SC DAILY [facility] Last Admin: 09/21/16 10:00 Dose: Not Given Levothyroxine Sodium (Synthroid) 50 mcg PO DAILY@0630 [facility] Pantoprazole Sodium (Protonix Inj) 40 mg IVP DAILY [facility] Last Admin: 09/21/16 13:20 Dose: 40 mg - Labs Labs: 09/18/16 06:00 09/21/16 08:03 PT 11.7 SECONDS (9.7-12.2) 09/15/16 06:35 INR 1.0 09/15/16 06:35 APTT 29 SECONDS (21-34) 09/15/16 06:35 - Constitutional Appears: No Acute Distress, Chronically Ill - Head Exam Head Exam: ATRAUMATIC, NORMAL INSPECTION - Eye Exam Eye Exam: EOMI, Normal appearance - Neck Exam Neck Exam: Normal Inspection. absent: Tenderness - Respiratory Exam Respiratory Exam: Clear to Ausculation Bilateral, NORMAL BREATHING PATTERN - Cardiovascular Exam Cardiovascular Exam: REGULAR RHYTHM, +S1 - GI/Abdominal Exam GI & Abdominal Exam: Soft, Tenderness - Extremities Exam Extremities Exam: Normal Inspection. absent: Tenderness - Neurological Exam Neurological Exam: Alert, CN II-XII Intact - Skin Skin Exam: Dry, Warm Assessment and Plan (1) Acute kidney injury superimposed on CKD Status: Chronic (2) NSTEMI (non-ST elevation myocardial infarction) Status: Acute (3) Cardiorenal syndrome with renal failure Status: Acute (4) ESRD (end stage renal disease) Status: Acute (5) HTN (hypertension), benign Status: Acute - Assessment and Plan (Free Text) Plan: Dialysis MWF Await av F maturation Schedule outpt dialysis
--- NOTE | 2016-09-22 10:06 | CP.PCM.PN ---
Subjective - Date & Time of Evaluation Date of Evaluation: 09/22/16 Time of Evaluation: 08:00 - Subjective Subjective: PGY1 Progress note for Dr. Frank: Patient seen and examined. Patient s/p AVF 09/21. Patient resting comfortable in bed and currently denies pain. Patient to continue dialysis by [facility] per nephrology. Objective - Vital Signs/Intake and Output Vital Signs (last 24 hours): Temp Pulse Resp BP Pulse Ox 98.7 F 92 H 18 150/60 96 09/22/16 07:07 09/22/16 07:07 09/22/16 07:07 09/22/16 07:07 09/22/16 07:07 - Medications Medications: Current Medications Aspirin (Aspirin) 325 mg PO DAILY [facility] Last Admin: 09/21/16 10:00 Dose: Not Given Calcitriol (Rocaltrol) 0.25 mcg PO DAILY [facility] Last Admin: 09/21/16 13:20 Dose: 0.25 mcg Carvedilol (Coreg) 3.125 mg PO BID [facility] Last Admin: 09/21/16 18:45 Dose: 3.125 mg Emollient Ointment (Vaseline Oint) 5 gm TOP BID PRN PRN Reason: Dry skin Enoxaparin Sodium (Lovenox) 30 mg SC DAILY [facility] Epoetin Dominik (Procrit) 4,000 unit IV [facility] Last Admin: 09/21/16 17:21 Dose: 4,000 unit Hydromorphone HCl (Dilaudid) 0.25 mg IVP Q6H PRN PRN Reason: Pain, moderate (4-7) Insulin Aspart (Novolog) 0 unit SC [facility] PRN Reason: Protocol Last Admin: 09/22/16 08:41 Dose: 6 unit Insulin Glargine (Lantus) 30 unit SC DAILY [facility] Last Admin: 09/21/16 10:00 Dose: Not Given Levothyroxine Sodium (Synthroid) 50 mcg PO DAILY@0630 [facility] Pantoprazole Sodium (Protonix Inj) 40 mg IVP DAILY [facility] Last Admin: 09/21/16 13:20 Dose: 40 mg - Labs Labs: 09/18/16 06:00 09/21/16 08:03 PT 11.7 SECONDS (9.7-12.2) 09/15/16 06:35 INR 1.0 09/15/16 06:35 APTT 29 SECONDS (21-34) 09/15/16 06:35 - Constitutional Appears: Well, Non-toxic, No Acute Distress - Head Exam Head Exam: ATRAUMATIC, NORMOCEPHALIC - Eye Exam Eye Exam: EOMI - ENT Exam ENT Exam: Mucous Membranes Moist - Neck Exam Additional comments: right chest tunneled permacath - Extremities Exam Additional comments: right arm double lumen PICC left arm with AV fistula with palpable thrill, + bruit - Neurological Exam Neurological Exam: Alert, Awake - Psychiatric Exam Psychiatric exam: Normal Affect - Skin Skin Exam: Warm Assessment and Plan - Assessment and Plan (Free Text) Assessment: 81M with renal failure on dialysis MWF, s/p left AV fistula POD #1, s/p permacath POD#7 - AVF with palpable thrill and + bruit on auscultation, no swelling at surgical site - continue dialysis MWF by permacath per nephrology until fistula matures - continue renal diet - no further vascular surgery intervention at this time, please re-consult as necessary - further recs per Dr. Frank
[2016-09-22] MEDS: (Lantus) Insulin Glargine, Recombinant SC SCH (10:33)
[2016-09-22] MEDS: Enoxaparin 30 mg Syringe SC SCH (11:02)
--- NOTE | 2016-09-22 15:15 | CP.PCM.PN ---
Subjective - Date & Time of Evaluation Date of Evaluation: 09/22/16 Time of Evaluation: 11:00 - Subjective Subjective: afebrile clinically same Objective - Vital Signs/Intake and Output Vital Signs (last 24 hours): Temp Pulse Resp BP Pulse Ox 98.7 F 92 H 18 150/60 96 09/22/16 07:07 09/22/16 07:07 09/22/16 07:07 09/22/16 07:07 09/22/16 07:07 - Medications Medications: Current Medications Aspirin (Aspirin) 325 mg PO DAILY [facility] Last Admin: 09/22/16 10:50 Dose: 325 mg Calcitriol (Rocaltrol) 0.25 mcg PO DAILY [facility] Last Admin: 09/22/16 11:05 Dose: 0.25 mcg Carvedilol (Coreg) 3.125 mg PO BID [facility] Last Admin: 09/22/16 11:03 Dose: 3.125 mg Emollient Ointment (Vaseline Oint) 5 gm TOP BID PRN PRN Reason: Dry skin Enoxaparin Sodium (Lovenox) 30 mg SC DAILY [facility] Last Admin: 09/22/16 11:02 Dose: 30 mg Epoetin Dominik (Procrit) 4,000 unit IV MWF [facility] Last Admin: 09/21/16 17:21 Dose: 4,000 unit Hydromorphone HCl (Dilaudid) 0.25 mg IVP Q6H PRN PRN Reason: Pain, moderate (4-7) Insulin Aspart (Novolog) 0 unit SC ACHS [facility] PRN Reason: Protocol Last Admin: 09/22/16 12:45 Dose: 8 unit Insulin Glargine (Lantus) 30 unit SC DAILY [facility] Last Admin: 09/22/16 10:33 Dose: 30 unit Levothyroxine Sodium (Synthroid) 50 mcg PO DAILY@0630 [facility] Pantoprazole Sodium (Protonix Inj) 40 mg IVP DAILY [facility] Last Admin: 09/22/16 11:01 Dose: 40 mg - Labs Labs: 09/18/16 06:00 09/21/16 08:03 PT 11.7 SECONDS (9.7-12.2) 09/15/16 06:35 INR 1.0 09/15/16 06:35 APTT 29 SECONDS (21-34) 09/15/16 06:35 - Constitutional Appears: Well - Head Exam Head Exam: ATRAUMATIC, NORMAL INSPECTION, NORMOCEPHALIC - Eye Exam Eye Exam: EOMI, Normal appearance, PERRL Pupil Exam: NORMAL ACCOMODATION, PERRL - ENT Exam ENT Exam: Mucous Membranes Moist, Normal Exam - Neck Exam Neck Exam: Full ROM, Normal Inspection. absent: Lymphadenopathy - Respiratory Exam Respiratory Exam: Decreased Breath Sounds - Cardiovascular Exam Cardiovascular Exam: REGULAR RHYTHM, +S1, +S2 - GI/Abdominal Exam GI & Abdominal Exam: Soft, Diminished Bowel Sounds - Rectal Exam Rectal Exam: Deferred Assessment and Plan - Assessment and Plan (Free Text) Plan: Dr. charley spencer for outpatient dialysis
--- NOTE | 2016-09-22 22:16 | CP.PCM.PN ---
Subjective - Date & Time of Evaluation Date of Evaluation: 09/22/16 Time of Evaluation: 08:00 - Subjective Subjective: Patient seen and examined Denies chest pain and dyspnea Physical Examination - Constitutional Appears: Non-toxic, No Acute Distress - Eye Exam Eye Exam: EOMI, Normal appearance - Respiratory Exam Respiratory Exam: NORMAL BREATHING PATTERN. absent: Respiratory Distress - Cardiovascular Exam Cardiovascular Exam: +S1, +S2 Additional comments: Right IJ Permacath in place, dressing clean and dry - Neurological Exam Neurological Exam: Alert, Awake - Psychiatric Exam Psychiatric exam: Normal Affect, Normal Mood - Skin Skin Exam: Dry, Normal Color Objective - Vital Signs/Intake and Output Vital Signs (last 24 hours): Temp Pulse Resp BP Pulse Ox 97.6 F 85 20 113/63 97 09/22/16 15:00 09/22/16 18:57 09/22/16 15:00 09/22/16 15:00 09/22/16 15:00 - Medications Medications: Current Medications Aspirin (Aspirin) 325 mg PO DAILY [facility] Last Admin: 09/22/16 10:50 Dose: 325 mg Calcitriol (Rocaltrol) 0.25 mcg PO DAILY [facility] Last Admin: 09/22/16 11:05 Dose: 0.25 mcg Carvedilol (Coreg) 3.125 mg PO BID [facility] Last Admin: 09/22/16 17:52 Dose: 3.125 mg Emollient Ointment (Vaseline Oint) 5 gm TOP BID PRN PRN Reason: Dry skin Enoxaparin Sodium (Lovenox) 30 mg SC DAILY [facility] Last Admin: 09/22/16 11:02 Dose: 30 mg Epoetin Dominik (Procrit) 4,000 unit IV MWF [facility] Last Admin: 09/21/16 17:21 Dose: 4,000 unit Hydromorphone HCl (Dilaudid) 0.25 mg IVP Q6H PRN PRN Reason: Pain, moderate (4-7) Insulin Aspart (Novolog) 0 unit SC ACHS [facility] PRN Reason: Protocol Last Admin: 09/22/16 22:11 Dose: Not Given Insulin Glargine (Lantus) 30 unit SC DAILY [facility] Last Admin: 09/22/16 10:33 Dose: 30 unit Levothyroxine Sodium (Synthroid) 50 mcg PO DAILY@0630 [facility] Pantoprazole Sodium (Protonix Inj) 40 mg IVP DAILY [facility] Last Admin: 09/22/16 11:01 Dose: 40 mg - Labs Labs: 09/18/16 06:00 09/21/16 08:03 PT 11.7 SECONDS (9.7-12.2) 09/15/16 06:35 INR 1.0 09/15/16 06:35 APTT 29 SECONDS (21-34) 09/15/16 06:35 Assessment and Plan - Assessment and Plan (Free Text) Assessment: (1) NSTEMI (non-ST elevation myocardial infarction) Status: Acute 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
[2016-09-23] MEDS: (Novolog) Insulin Aspart, Recombinant 100 u/ml 10 ml vial SC SCH ×3 (08:16→17:30)
[2016-09-23] MEDS: Enoxaparin 30 mg Syringe SC SCH (10:00)
[2016-09-23] MEDS: EPOETIN ALFA 4,000 UNIT/ML ML Dialysis IV SCH (10:39)
--- NOTE | 2016-09-23 10:45 | CP.PCM.PN ---
Subjective - Date & Time of Evaluation Date of Evaluation: 09/23/16 Time of Evaluation: 10:43 - Subjective Subjective: on HD no complaints noted high sugars andrew with good bruit no fever no rash no headache continued u/o no cough no vomiting no chest pain Objective - Vital Signs/Intake and Output Vital Signs (last 24 hours): Temp Pulse Resp BP Pulse Ox 97.2 F L 94 H 20 137/80 97 09/23/16 09:15 09/23/16 09:00 09/23/16 09:15 09/23/16 10:00 09/23/16 09:15 - Medications Medications: Current Medications Aspirin (Aspirin) 325 mg PO DAILY [facility] Last Admin: 09/22/16 10:50 Dose: 325 mg Calcitriol (Rocaltrol) 0.25 mcg PO DAILY [facility] Last Admin: 09/22/16 11:05 Dose: 0.25 mcg Carvedilol (Coreg) 3.125 mg PO BID [facility] Last Admin: 09/22/16 17:52 Dose: 3.125 mg Emollient Ointment (Vaseline Oint) 5 gm TOP BID PRN PRN Reason: Dry skin Enoxaparin Sodium (Lovenox) 30 mg SC DAILY [facility] Last Admin: 09/22/16 11:02 Dose: 30 mg Epoetin Dominik (Procrit) 4,000 unit IV MWF [facility] Last Admin: 09/23/16 10:39 Dose: 4,000 unit Hydromorphone HCl (Dilaudid) 0.25 mg IVP Q6H PRN PRN Reason: Pain, moderate (4-7) Insulin Aspart (Novolog) 0 unit SC [facility] PRN Reason: Protocol Last Admin: 09/23/16 08:16 Dose: 2 unit Insulin Glargine (Lantus) 30 unit SC DAILY [facility] Last Admin: 09/22/16 10:33 Dose: 30 unit Levothyroxine Sodium (Synthroid) 50 mcg PO DAILY@0630 [facility] Last Admin: 09/23/16 06:32 Dose: 50 mcg Pantoprazole Sodium (Protonix Inj) 40 mg IVP DAILY [facility] Last Admin: 09/22/16 11:01 Dose: 40 mg - Labs Labs: 09/18/16 06:00 09/21/16 08:03 PT 11.7 SECONDS (9.7-12.2) 09/15/16 06:35 INR 1.0 09/15/16 06:35 APTT 29 SECONDS (21-34) 09/15/16 06:35 - Constitutional Appears: Non-toxic, No Acute Distress - Head Exam Head Exam: ATRAUMATIC - Eye Exam Eye Exam: EOMI - ENT Exam ENT Exam: Mucous Membranes Moist - Respiratory Exam Respiratory Exam: Clear to Ausculation Bilateral, NORMAL BREATHING PATTERN - Cardiovascular Exam Cardiovascular Exam: REGULAR RHYTHM. absent: Rubs - GI/Abdominal Exam GI & Abdominal Exam: Soft. absent: Tenderness - Neurological Exam Neurological Exam: Alert, Awake, Oriented x3 - Psychiatric Exam Psychiatric exam: Normal Affect Assessment and Plan - Assessment and Plan (Free Text) Assessment: new esrd dm htn cad has placement and access stable from renal for discharge
--- NOTE | 2016-09-23 11:24 | CP.PCM.PN ---
Subjective - Date & Time of Evaluation Date of Evaluation: 09/23/16 Time of Evaluation: 11:00 - Subjective Subjective: clinically same Objective - Vital Signs/Intake and Output Vital Signs (last 24 hours): Temp Pulse Resp BP Pulse Ox 97.2 F L 94 H 20 150/71 97 09/23/16 09:15 09/23/16 09:00 09/23/16 09:15 09/23/16 10:45 09/23/16 09:15 - Medications Medications: Current Medications Aspirin (Aspirin) 325 mg PO DAILY [facility] Last Admin: 09/22/16 10:50 Dose: 325 mg Calcitriol (Rocaltrol) 0.25 mcg PO DAILY [facility] Last Admin: 09/22/16 11:05 Dose: 0.25 mcg Carvedilol (Coreg) 3.125 mg PO BID [facility] Last Admin: 09/22/16 17:52 Dose: 3.125 mg Emollient Ointment (Vaseline Oint) 5 gm TOP BID PRN PRN Reason: Dry skin Enoxaparin Sodium (Lovenox) 30 mg SC DAILY [facility] Last Admin: 09/22/16 11:02 Dose: 30 mg Epoetin Dominik (Procrit) 4,000 unit IV MWF [facility] Last Admin: 09/23/16 10:39 Dose: 4,000 unit Hydromorphone HCl (Dilaudid) 0.25 mg IVP Q6H PRN PRN Reason: Pain, moderate (4-7) Insulin Aspart (Novolog) 0 unit SC ACHS [facility] PRN Reason: Protocol Last Admin: 09/23/16 08:16 Dose: 2 unit Insulin Glargine (Lantus) 30 unit SC DAILY [facility] Last Admin: 09/22/16 10:33 Dose: 30 unit Levothyroxine Sodium (Synthroid) 50 mcg PO DAILY@0630 [facility] Last Admin: 09/23/16 06:32 Dose: 50 mcg Pantoprazole Sodium (Protonix Inj) 40 mg IVP DAILY [facility] Last Admin: 09/22/16 11:01 Dose: 40 mg - Labs Labs: 09/18/16 06:00 09/21/16 08:03 PT 11.7 SECONDS (9.7-12.2) 09/15/16 06:35 INR 1.0 09/15/16 06:35 APTT 29 SECONDS (21-34) 09/15/16 06:35 - Constitutional Appears: Well - Head Exam Head Exam: ATRAUMATIC, NORMAL INSPECTION, NORMOCEPHALIC - Eye Exam Eye Exam: EOMI, Normal appearance, PERRL Pupil Exam: NORMAL ACCOMODATION, PERRL - ENT Exam ENT Exam: Mucous Membranes Moist, Normal Exam - Neck Exam Neck Exam: Full ROM, Normal Inspection. absent: Lymphadenopathy - Respiratory Exam Respiratory Exam: Decreased Breath Sounds - Cardiovascular Exam Cardiovascular Exam: REGULAR RHYTHM, +S1, +S2 - GI/Abdominal Exam GI & Abdominal Exam: Soft, Diminished Bowel Sounds - Rectal Exam Rectal Exam: Deferred Assessment and Plan - Assessment and Plan (Free Text) Plan: ready for discharge plan to dischrge to [facility] scheduled outpatient dialysis
[2016-09-23 16:09] VITALS: BP 148/70; PULSE 93; RESP 20; TEMP 97.6; O2SAT 97
--- NOTE | 2016-09-23 17:20 | CP.PCM.PN ---
Subjective - Date & Time of Evaluation Date of Evaluation: 09/23/16 Time of Evaluation: 11:00 - Subjective Subjective: Awake, alert, no sob or chest pains, NAD. Objective - Vital Signs/Intake and Output Vital Signs (last 24 hours): Temp Pulse Resp BP Pulse Ox 97.6 F 93 H 20 148/70 97 09/23/16 15:34 09/23/16 15:34 09/23/16 15:34 09/23/16 15:34 09/23/16 15:34 - Medications Medications: Current Medications Aspirin (Aspirin) 325 mg PO DAILY [facility] Last Admin: 09/22/16 10:50 Dose: 325 mg Calcitriol (Rocaltrol) 0.25 mcg PO DAILY [facility] Last Admin: 09/23/16 15:17 Dose: 0.25 mcg Carvedilol (Coreg) 3.125 mg PO BID [facility] Last Admin: 09/22/16 17:52 Dose: 3.125 mg Emollient Ointment (Vaseline Oint) 5 gm TOP BID PRN PRN Reason: Dry skin Enoxaparin Sodium (Lovenox) 30 mg SC DAILY [facility] Last Admin: 09/23/16 10:00 Dose: Not Given Epoetin Dominik (Procrit) 4,000 unit IV MWF [facility] Last Admin: 09/23/16 10:39 Dose: 4,000 unit Hydromorphone HCl (Dilaudid) 0.25 mg IVP Q6H PRN PRN Reason: Pain, moderate (4-7) Insulin Aspart (Novolog) 0 unit SC ACHS [facility] PRN Reason: Protocol Last Admin: 09/23/16 11:30 Dose: Not Given Insulin Glargine (Lantus) 30 unit SC DAILY [facility] Last Admin: 09/22/16 10:33 Dose: 30 unit Levothyroxine Sodium (Synthroid) 50 mcg PO DAILY@0630 [facility] Last Admin: 09/23/16 06:32 Dose: 50 mcg Pantoprazole Sodium (Protonix Inj) 40 mg IVP DAILY [facility] Last Admin: 09/23/16 10:00 Dose: Not Given - Labs Labs: 09/18/16 06:00 09/21/16 08:03 PT 11.7 SECONDS (9.7-12.2) 09/15/16 06:35 INR 1.0 09/15/16 06:35 APTT 29 SECONDS (21-34) 09/15/16 06:35 Assessment and Plan - Assessment and Plan (Free Text) Assessment: Patient is seen and examined. Alert, awake, no sob or chest pains. Had HD today , tolerated well. D/W DR Estela Su, plan to discharge to [facility] rehab today. PICC line removed from right arm. To continue with HD on MWF at [facility].
--- NOTE | 2016-09-23 17:26 | PCM.HF ---
Heart Failure Core Measure - Heart Failure Ejection Fraction: 40 % or Greater (NORMAL SYSTOLIC FUNCTION) RADHA Inhibitor Prescribed: No Contraindication/Reason for not providing: ESRD Beta-Hilda Prescribed: Carvedilol Angiotensin II Receptor Hilda Prescribed: No Contraindication/Reason for not providing: ESRD AnticoagulationTherapy for Atrial Fibrillation/Atrialflutter: No Contraindication/Reason for not providing: NO AFIB Aldosterone Antagonist Prescribed: No Contraindication/Reason for not providing: renal dysfunction Hydralazine Nitrate Prescribed: No Contraindication/Reason for not providing: EF>40% Implantable Cardioverter Defibrillator Therapy: No Contraindication/Reason for not providing: EF > 40% Cardiac Resynchronization Therapy Prescribed: No Contraindication/Reason for not providing: not indicated - Follow up Will be discharged to: [facility] ([facility])
--- NOTE | 2016-09-23 18:19 | CP.PCM.PN ---
Subjective - Date & Time of Evaluation Date of Evaluation: 09/23/16 Time of Evaluation: 07:00 - Subjective Subjective: afebrile/alert no chest pain or cough Objective - Vital Signs/Intake and Output Vital Signs (last 24 hours): Temp Pulse Resp BP Pulse Ox 97.6 F 93 H 20 148/70 97 09/23/16 15:34 09/23/16 15:34 09/23/16 15:34 09/23/16 15:34 09/23/16 15:34 - Medications Medications: Current Medications Aspirin (Aspirin) 325 mg PO DAILY [facility] Last Admin: 09/22/16 10:50 Dose: 325 mg Calcitriol (Rocaltrol) 0.25 mcg PO DAILY [facility] Last Admin: 09/23/16 15:17 Dose: 0.25 mcg Carvedilol (Coreg) 3.125 mg PO BID [facility] Last Admin: 09/23/16 17:46 Dose: 3.125 mg Emollient Ointment (Vaseline Oint) 5 gm TOP BID PRN PRN Reason: Dry skin Enoxaparin Sodium (Lovenox) 30 mg SC DAILY [facility] Last Admin: 09/23/16 10:00 Dose: Not Given Epoetin Dominik (Procrit) 4,000 unit IV MWF [facility] Last Admin: 09/23/16 10:39 Dose: 4,000 unit Hydromorphone HCl (Dilaudid) 0.25 mg IVP Q6H PRN PRN Reason: Pain, moderate (4-7) Insulin Aspart (Novolog) 0 unit SC ACHS [facility] PRN Reason: Protocol Last Admin: 09/23/16 17:30 Dose: 8 unit Insulin Glargine (Lantus) 30 unit SC DAILY [facility] Last Admin: 09/22/16 10:33 Dose: 30 unit Levothyroxine Sodium (Synthroid) 50 mcg PO DAILY@0630 [facility] Last Admin: 09/23/16 06:32 Dose: 50 mcg Pantoprazole Sodium (Protonix Inj) 40 mg IVP DAILY [facility] Last Admin: 09/23/16 10:00 Dose: Not Given - Labs Labs: 09/18/16 06:00 09/21/16 08:03 PT 11.7 SECONDS (9.7-12.2) 09/15/16 06:35 INR 1.0 09/15/16 06:35 APTT 29 SECONDS (21-34) 09/15/16 06:35 - Constitutional Appears: Non-toxic - Head Exam Head Exam: NORMOCEPHALIC - Eye Exam Eye Exam: absent: Scleral icterus - ENT Exam ENT Exam: Mucous Membranes Dry - Neck Exam Neck Exam: absent: Lymphadenopathy - Respiratory Exam Respiratory Exam: Decreased Breath Sounds - Cardiovascular Exam Cardiovascular Exam: REGULAR RHYTHM - GI/Abdominal Exam GI & Abdominal Exam: Distended, Soft. absent: Tenderness - Rectal Exam Rectal Exam: Deferred - Exam Exam: NORMAL INSPECTION Assessment and Plan (1) Syncope Status: Acute (2) Renal failure Status: Acute (3) DVT prophylaxis Status: Acute (4) Acute kidney injury superimposed on CKD Status: Chronic (5) Pulmonary edema Status: Resolved (6) NSTEMI (non-ST elevation myocardial infarction) Status: Acute (7) Respiratory failure with hypoxia Status: Acute (8) Cardiorenal syndrome with renal failure Status: Acute
--- NOTE | 2016-09-29 20:18 | CARDCATH ---
PROCEDURE DATE: 09/11/2016 PROCEDURES: 1. Left heart catheterization. 2. Coronary angiogram. REFERRING PHYSICIAN: Dr. Zaki Su. PERFORMING PHYSICIAN: Dr. Roger Garcia. CLINICAL INDICATIONS: 1. Chest pain. 2. Dyspnea. 3. Non-ST elevation myocardial infarction. 4. Chronic kidney disease on hemodialysis. 5. Hypertension. 6. Diabetes. PROCEDURE: After informed consent, the patient was prepped and draped in the usual sterile fashion. 2% lidocaine was given in the right groin for local anesthesia. Using the usual diagnostic catheter s, left heart catheterization and coronary angiogram was performed. The patient tolerated the proced ure well. FINDINGS: 1. Distal left main has a calcific 70% concentric stenosis. 2. Proximal LAD is patent. Mid to distal LAD has an 80%-95% calcific occlusive disease. Diagonal b ranches are patent. 3. Left circumflex has a 90% ostial stenosis. Mid circumflex has an 80% stenosis. 4. Right coronary artery is 100% occluded. There are collaterals from left to left and right to rig ht. 5. LV ejection fraction 30%. Global hypokinesis. EDP is critical. IMPRESSION: 1. Severe calcific left main and triple vessel disease. 2. Ischemic cardiomyopathy with ejection fraction of 30%. Roger Garcia MD cc: [id number] TT: 09/29/2016 20:17:59 ga
== END 2016-09-23 19:30 | DRG 264 ==
LOC: C.ER 05:31 → C.9E 09:31 → C.6T 16:24 → C.9I 09-07 10:05 → C.6T 09-18 21:36
PROVIDERS: ADMIT Internal Medicine Nephrology; ATTEND Internal Medicine Nephrology
PROC: 5A09457 Assistance with Respiratory Ventilation, 24-96 Consecutive Hours, Continuous Positive Airway Pressure (ICD-10-PCS; 2016-09-05)
PROC: 5A1955Z Respiratory Ventilation, Greater than 96 Consecutive Hours (ICD-10-PCS; 2016-09-07)
PROC: 0BH17EZ Insertion of Endotracheal Airway into Trachea, Via Natural or Artificial Opening (ICD-10-PCS; 2016-09-07)
PROC: 02HV33Z Insertion of Infusion Device into Superior Vena Cava, Percutaneous Approach (ICD-10-PCS; 2016-09-07)
PROC: 5A1D60Z (ICD-10-PCS; 2016-09-09)
PROC: 4A023N7 Measurement of Cardiac Sampling and Pressure, Left Heart, Percutaneous Approach (ICD-10-PCS; 2016-09-11)
PROC: B201YZZ Plain Radiography of Multiple Coronary Arteries using Other Contrast (ICD-10-PCS; 2016-09-11)
PROC: B205YZZ Plain Radiography of Left Heart using Other Contrast (ICD-10-PCS; 2016-09-11)
PROC: 02HV33Z Insertion of Infusion Device into Superior Vena Cava, Percutaneous Approach (ICD-10-PCS; principal; 2016-09-15 10:00)
PROC: 031809D Bypass Left Brachial Artery to Upper Arm Vein with Autologous Venous Tissue, Open Approach (ICD-10-PCS; 2016-09-21)
DX: I21.4 Non-ST elevation (NSTEMI) myocardial infarction (principal); J96.01 Acute respiratory failure with hypoxia; I26.99 Other pulmonary embolism without acute cor pulmonale; N17.9 Acute kidney failure, unspecified; J18.9 Pneumonia, unspecified organism; I50.43 Acute on chronic combined systolic (congestive) and diastolic (congestive) heart failure; N18.6 End stage renal disease; E11.22 Type 2 diabetes mellitus with diabetic chronic kidney disease; I13.2 Hypertensive heart and chronic kidney disease with heart failure and with stage 5 chronic kidney disease, or end stage renal disease; E11.65 Type 2 diabetes mellitus with hyperglycemia; Z87.891 Personal history of nicotine dependence; Z99.2 Dependence on renal dialysis; Z79.4 Long term (current) use of insulin; G93.9 Disorder of brain, unspecified; D32.9 Benign neoplasm of meninges, unspecified; R55 Syncope and collapse; Z51.5 Encounter for palliative care; E87.6 Hypokalemia; I25.10 Atherosclerotic heart disease of native coronary artery without angina pectoris

== ENCOUNTER 2016-10-06 18:36 | Emergency (ER) | payer MEDICARE ==
[2016-10-06 18:36] VITALS: BMI 25.8
[2016-10-06 18:56] VITALS: PULSE 98; RESP 18; TEMP 97.4; O2SAT 99
--- NOTE | 2016-10-06 19:10 | C.PDOC ---
History Of Present Illness 81yo M with renal failure, now s/p Right jugular vein Permacath placed by on 09/17/16. Patient reports that the dressing around the permacath on his right chest became wet, while taking a shower RN ACUTE DIALYSIS. Patient is unsure how to re-dress it and is concerned over possible infections. Patient denies any pain, swelling, redness, discharge, or any other complaints. Ambulate to Ed for evaluation, not in any apparent distress. Time Seen by Provider: 10/06/16 19:03 Chief Complaint (Nursing): Medical Clearance History Per: Patient History/Exam Limitations: no limitations Onset/Duration Of Symptoms: Hrs Current Symptoms Are (Timing): Still Present Severity: Mild Past Medical History Reviewed: Historical Data, Nursing Documentation, Vital Signs Vital Signs: Last Vital Signs Temp 97.4 F L 10/06/16 18:53 Pulse 98 H 10/06/16 18:53 Resp 18 10/06/16 18:53 BP 154/75 H 10/06/16 19:41 Pulse Ox 99 10/06/16 20:21 - Medical History PMH: Asthma, Diabetes, HTN Denies: Arthritis, CHF, COPD, HIV, Hypercholesterolemia, Hypothyroidism, Chronic Kidney Disease, Rheumatoid Arthritis - [facility] Procedures ASSISTANCE WITH RESPIRATORY VENTILATION, 24-96 HRS, CPAP (09/04/16) BYPASS L BRACH ART TO UP ARM VEIN W AUTOL VN, OPEN (09/04/16) INSERTION OF ENDOTRACHEAL AIRWAY INTO TRACHEA, VIA OPENING (09/04/16) INSERTION OF INFUSION DEV INTO SUP VENA CAVA, PERC APPROACH (09/04/16) MEASURE OF CARDIAC SAMPL & PRESSURE, L HEART, PERC APPROACH (09/04/16) PERFORMANCE OF URINARY FILTRATION, MULTIPLE (09/04/16) PLAIN RADIOGRAPHY OF LEFT HEART USING OTHER CONTRAST (09/04/16) PLAIN RADIOGRAPHY OF MULT COR ART USING OTH CONTRAST (09/04/16) RESPIRATORY VENTILATION, GREATER THAN 96 CONSECUTIVE HOURS (09/04/16) Family History: States: No Known Family Hx - Social History Hx Alcohol Use: Yes (social) Hx Substance Use: No Review Of Systems Except As Marked, All Systems Reviewed And Found Negative. Constitutional: Negative for: Fever, Chills Cardiovascular: Positive for: Other (Wet dressing around permacath on right chest.) Gastrointestinal: Negative for: Nausea, Vomiting, Diarrhea Physical Exam - Physical Exam Appears: Well, Non-toxic, No Acute Distress Skin: Normal Color, Warm, Dry, No Rash, Other (Right upper chest wall permacath in place, secure with sutures. No edema, erythema, or discharge.) Neck: Trachea Midline, Supple Neurological/Psych: Oriented x3, Normal Speech, Normal Cognition ED Course And Treatment O2 Sat by Pulse Oximetry: 99 Progress Note: Wound was cleaned with peroxide, covered by sterile dressing. No evinde oce fcellulitis or wound infection. Pt advised and ref. to F/u with in 1-2 days for re-eval. returb if any new changes. Disposition Counseled Patient/Family Regarding: Diagnosis, Need For Followup - Disposition Referrals: Lenard Frank Jr., MD [Staff Provider] - Disposition: HOME/ ROUTINE Disposition Time: 19:38 Condition: STABLE Additional Instructions: keep wound clean, dry follow up with in 1-2 days for re-evaluation. Return to ED if any worsening or new changes. Instructions: Care For Your Stitches (ED) - Clinical Impression Clinical Impression: Visit for wound check - Scribe Statement The provider has reviewed the documentation as recorded by the Scribe Mario Daly All medical record entries made by the Scribe were at my direction and personally dictated by me. I have reviewed the chart and agree that the record accurately reflects my personal performance of the history, physical exam, medical decision making, and the department course for this patient. I have also personally directed, reviewed, and agree with the discharge instructions and disposition.
[2016-10-06 19:44] VITALS: BP 154/75
== END 2016-10-06 19:43 | disposition home or self-care (01) ==
LOC: C.ER 18:36
DX: Z48.01 Encounter for change or removal of surgical wound dressing (principal)

== ENCOUNTER 2016-12-08 16:33 | Inpatient (IN) | payer MEDICARE ==
[2016-12-08 16:33] VITALS: BMI 25.6
[2016-12-08 18:18] LABS: BASO # 0.1 K/uL (0.0-0.2); BASO % 1.1 % (0.0-2.0); EOS # 0.4 K/uL (0.0-0.7); EOS % 6.2 % (0.0-4.0); HEMOGLOBIN 11.2 g/dL (12.0-18.0); LYMPH # 2.8 K/uL (1.0-4.3); LYMPH % 39.8 % (20.0-40.0); MEAN CORPUSCULAR HEMOGLOBIN 31.5 pg (27.0-31.0); MEAN CORPUSCULAR HGB CONC 33.1 g/dL (33.0-37.0); MEAN PLATELET VOLUME 8.3 fL (7.2-11.7); MONO # 0.7 K/uL (0.0-0.8); NEUT % 42.9 % (50.0-75.0); RBC 3.57 Mil/uL (4.40-5.90); RED CELL DISTRIBUTION WIDTH 15.7 % (11.5-14.5); WHITE BLOOD COUNT 7.1 K/uL (4.8-10.8)
[2016-12-08 18:25] LABS: ALBUMIN 3.3 g/dL (3.5-5.0)
[2016-12-08 18:26] LABS: INR 0.9; PROTHROMBIN TIME 10.5 SECONDS (9.7-12.2)
[2016-12-08 18:29] LABS: ALB/GLOB RATIO 1.2 (1.0-2.1); CALCIUM 8.4 mg/dl (8.6-10.4)
[2016-12-08] MEDS ORDERED: (Novolin R) Insulin Human Regular 100 units/ml vial IV ONE (18:45)
[2016-12-08] MEDS ORDERED: (Novolin R) Insulin Human Regular 100 units/ml vial ONE ×2 (19:04→21:42)
--- NOTE | 2016-12-08 20:01 | CP.PCM.HP ---
Addendum entered and electronically signed by Linda Guardado DO 12/08/16 21:31 : DC home medications for DM. Instead patient placed on ISS-moderate. Acclawrences Original Note: <Linda Guardado - Last Filed: 12/08/16 21:00> History of Present Illness - History of Present Illness History of Present Illness: Medicine Note CC: medical clearance HPI: 81M with PMHx of HTN, DM, COPD, Hypothryroidism, ESRD on HD (MWF) presents to the ED for medical clearance. There's an issue with the patient's dialysis fistula. Plan is for medical and cardiac clearance, and OR . No acute complaints. Denied fever, chills, headache, chest pain, abdominal pain, n/v/d/c , or urinary symptoms. PMHx: HTN, DM, COPD, Hypothryroidism, ESRD on HD (MWF) PSHx: Meds: As per JUL All: NKDA SHx: Denied x 3 FHx: Unremarkable PMD: Dian Present on Admission - Present on Admission Any Indicators Present on Admission: No Review of Systems - Constitutional Constitutional: absent: Chills, Fever - EENT Eyes: absent: Change in Vision, Loss of Vision Ears: absent: Tinnitus Nose/Mouth/Throat: absent: Neck Mass - Cardiovascular Cardiovascular: absent: Chest Pain, Chest Pain at Rest, Syncope - Respiratory Respiratory: absent: Cough, Dyspnea - Gastrointestinal Gastrointestinal: absent: Abdominal Pain, Nausea, Vomiting - Genitourinary Genitourinary: absent: Dysuria, Hematuria - Musculoskeletal Musculoskeletal: absent: Back Pain - Integumentary Integumentary: absent: Wounds - Neurological Neurological: absent: Weakness - Psychiatric Psychiatric: absent: Anxiety - Endocrine Endocrine: absent: Palpitations - Hematologic/Lymphatic Hematologic: absent: Easy Bleeding, Easy Bruising Past Patient History - Infectious Disease Hx of Infectious Diseases: None - Past Medical History & Family History Past Medical History?: Yes - Past Social History Smoking Status: Never Smoked - CARDIAC Hx Cardiac Disorders: Yes Hx Congestive Heart Failure: Yes - PULMONARY Hx Respiratory Disorders: Yes Hx Chronic Obstructive Pulmonary Disease (COPD): Yes - HEENT Hx HEENT Problems: Yes Hx Cataracts: Yes (with surgery done and IOL) - RENAL Hx Chronic Kidney Disease: Yes Hx Dialysis: Yes Type of Dialysis Access: RIGHT PERMA CATH Date of Last Dialysis Treatment: 12/07/16 - SURGICAL HISTORY Hx Surgeries: Yes Hx Vascular Access Device: Yes - ANESTHESIA Hx Anesthesia: Yes Hx Anesthesia Reactions: No Meds Allergies/Adverse Reactions: Allergies Allergy/AdvReac Type Severity Reaction Status Date / Time No Known Allergies Allergy Verified 12/08/16 16:55 Physical Exam - Constitutional Appears: No Acute Distress - Head Exam Head Exam: NORMAL INSPECTION, NORMOCEPHALIC - Eye Exam Eye Exam: EOMI, Normal appearance, PERRL Pupil Exam: NORMAL ACCOMODATION - ENT Exam ENT Exam: Mucous Membranes Moist - Respiratory Exam Respiratory Exam: Clear to Auscultation Bilateral, NORMAL BREATHING PATTERN. absent: Wheezes - Cardiovascular Exam Cardiovascular Exam: REGULAR RHYTHM, RRR, +S1, +S2 - GI/Abdominal Exam GI & Abdominal Exam: Normal Bowel Sounds, Soft. absent: Distended - Rectal Exam Rectal Exam: Deferred - Extremities Exam Extremities exam: Positive for: normal inspection, pedal pulses present. Negative for: pedal edema, tenderness - Back Exam Back exam: NORMAL INSPECTION - Neurological Exam Neurological exam: Alert, CN II-XII Intact, Oriented x3 - Psychiatric Exam Psychiatric exam: Normal Affect, Normal Mood - Skin Skin Exam: Dry, Intact, Normal Color, Warm Results - Vital Signs Recent Vital Signs: Last Vital Signs Temp 97.9 F 12/08/16 19:20 Pulse 81 12/08/16 19:20 Resp 16 12/08/16 19:20 BP 178/72 H 12/08/16 19:20 Pulse Ox 96 12/08/16 19:20 - Labs Result Diagrams: 12/08/16 18:14 12/08/16 18:14 Labs: Laboratory Results - last 24 hr 12/08/16 12/08/16 12/08/16 18:14 18:14 18:14 WBC 7.1 RBC 3.57 L Hgb 11.2 L Hct 33.9 L MCV 95.0 H MCH 31.5 H MCHC 33.1 RDW 15.7 H Plt Count 144 MPV 8.3 Neut % (Auto) 42.9 L Lymph % (Auto) 39.8 Sargent % (Auto) 10.0 Eos % (Auto) 6.2 H Baso % (Auto) 1.1 Neut # 3.0 Lymph # 2.8 Sargent # 0.7 Eos # 0.4 Baso # 0.1 PT 10.5 INR 0.9 APTT 32 Sodium 131 L Potassium 4.6 Chloride 94 L Carbon Dioxide 27 Anion Gap 15 BUN 28 H Creatinine 2.5 H Est GFR ( Amer) 30 Est GFR (Non-Af Amer) 25 Random Glucose 501 H* D Calcium 8.4 L Total Bilirubin 0.5 AST 21 ALT 31 Alkaline Phosphatase 84 Total Protein 6.1 L Albumin 3.3 L Globulin 2.8 Albumin/Globulin Ratio 1.2 Assessment & Plan - Assessment and Plan (Free Text) Assessment: 81M with PMHx of HTN, DM, COPD, Hypothryroidism, ESRD on HD (MWF) presents to the ED for medical clearance. Plan: Nonfunctioning AV Fistula * Surgery on board- Dr. Frank- after medical and cardiac clearance plan is for OR * Dr. Garcia consulted for cardiac clearance * Pre-op medical clearance ESRD on HD (MWF) * Nephrology consulted- Dr. Horn-help appreciated * Renal Diet DM * Resumed home medications: Novolog 20unit SC ACHS, Lantus 30 unit SC daily * Accuchecks COPD * Duonebs PRN Hypothryroidism * Resumed home medications: Synthroid 50mcg PO daily Hx of HTN * Monitor Prophylactic Measures * GI PPX: Protonix 40mg PO daily * DVT PPX: Heparin 5000 SC Q12, SCDs DW Geo Barnett DO, PGY-1 <Ayaz Meehan P - Last Filed: 12/13/16 06:39> Results - Vital Signs Recent Vital Signs: Last Vital Signs Temp 98.3 F 12/11/16 15:40 Pulse 101 H 12/11/16 15:40 Resp 18 12/11/16 15:40 BP 153/68 H 12/11/16 15:40 Pulse Ox 97 12/11/16 15:40 - Labs Result Diagrams: 12/11/16 07:05 12/11/16 07:05 Attending/Attestation - Attestation I have personally seen and examined this patient.: Yes I have fully participated in the care of the patient.: Yes I have reviewed all pertinent clinical information: Yes
--- NOTE | 2016-12-08 20:08 | C.PDOC ---
History Of Present Illness Pt was sent in by Dr. Amador to be admitted. The is a problem with the pt's dialysis fistula. He is planning on taking pt to OR. Pt needs medical and cardiac clearance prior to surgery. Time Seen by Provider: 12/08/16 17:39 Chief Complaint (Nursing): Medical Clearance History Per: Patient, Family Onset/Duration Of Symptoms: Days Current Symptoms Are (Timing): Still Present Severity: Moderate Location: Left arm Additional History Per: Prior Records Past Medical History Reviewed: Historical Data, Nursing Documentation, Vital Signs Vital Signs: Last Vital Signs Temp 97.9 F 12/08/16 19:20 Pulse 81 12/08/16 19:20 Resp 16 12/08/16 19:20 BP 178/72 H 12/08/16 19:20 Pulse Ox 96 12/08/16 19:20 - Medical History PMH: Anemia, Asthma, CHF, COPD, Diabetes, HTN, Peripheral Edema, End Stage Renal Disease, Chronic Kidney Disease - [facility] Procedures ASSISTANCE WITH RESPIRATORY VENTILATION, 24-96 HRS, CPAP (09/04/16) BYPASS L BRACH ART TO UP ARM VEIN W AUTOL VN, OPEN (09/04/16) INSERTION OF ENDOTRACHEAL AIRWAY INTO TRACHEA, VIA OPENING (09/04/16) INSERTION OF INFUSION DEV INTO SUP VENA CAVA, PERC APPROACH (09/04/16) MEASURE OF CARDIAC SAMPL & PRESSURE, L HEART, PERC APPROACH (09/04/16) PERFORMANCE OF URINARY FILTRATION, MULTIPLE (09/04/16) PLAIN RADIOGRAPHY OF LEFT HEART USING OTHER CONTRAST (09/04/16) PLAIN RADIOGRAPHY OF MULT COR ART USING OTH CONTRAST (09/04/16) RESPIRATORY VENTILATION, GREATER THAN 96 CONSECUTIVE HOURS (09/04/16) Family History: States: Unknown Family Hx - Social History Hx Alcohol Use: Yes (social) Review Of Systems Except As Marked, All Systems Reviewed And Found Negative. Constitutional: Negative for: Fever Cardiovascular: Negative for: Chest Pain Gastrointestinal: Negative for: Vomiting, Abdominal Pain Musculoskeletal: Negative for: Neck Pain Skin: Negative for: Rash Neurological: Negative for: Weakness, Numbness, Seizures Physical Exam - Physical Exam Appears: Non-toxic, No Acute Distress Skin: Normal Color, Warm, Dry, No Rash Head: Atraumatic, Normacephalic Eye(s): bilateral: PERRL, EOMI Neck: Normal ROM, Supple Chest: Other (dialysis catheter in right chest) Cardiovascular: Rhythm Regular Respiratory: Normal Breath Sounds, No Accessory Muscle Use Gastrointestinal/Abdominal: Soft, No Tenderness Back: No CVA Tenderness Extremity: Normal ROM, No Deformity, Other (Fistula in left arm with no thrill) Neurological/Psych: Oriented x3, Normal Motor, Normal Sensation ED Course And Treatment - Laboratory Results Result Diagrams: 12/08/16 18:14 12/08/16 18:14 Lab Interpretation: Abnormal Interpretation Of Abnormal: Hyperglycemia. CRF. ECG: Interpreted By Me, Viewed By Me ECG Rhythm: Sinus Rhythm, Nonspecific Changes ECG Interpretation: No Acute Changes Rate From EC O2 Sat by Pulse Oximetry: 96 Pulse Ox Interpretation: Normal - Radiology CXR: Interpreted by Me, Viewed By Me CXR Interpretation: Yes: No Acute Disease Disposition Discussed With DrShauna: Dilan Su Comment: He accepted pt on hospitalist service since pt's primary doctor is Dr Concepción Biggs. Counseled Patient/Family Regarding: Studies Performed, Diagnosis - Disposition Disposition: HOSPITALIZED Disposition Time: 20:12 Condition: FAIR - Clinical Impression Clinical Impression: Uncontrolled diabetes mellitus with hyperglycemia, ESRD (end stage renal disease)
[2016-12-08] MEDS ORDERED: Albuterol-Ipratrop 3 mg / 0.5 (3 ml) UD INH PRN (21:07)
[2016-12-08] MEDS: (Novolin R) Insulin Human Regular 100 units/ml vial SC SCH (21:42)
[2016-12-08] MEDS ORDERED: (Novolog) Insulin Aspart, Recombinant 100 u/ml 10 ml vial SC SCH (22:00)
[2016-12-08] MEDS ORDERED: (Novolin R) Insulin Human Regular 100 units/ml vial SC SCH (22:00)
--- NOTE | 2016-12-08 22:56 | CP.PCM.CON ---
History of Present Illness - History of Present Illness History of Present Illness: Patient for Vascular surgery (AV Fistula) tomorrow Stress test in am as part of Pre Op cardiac work up Past Patient History - Infectious Disease Hx of Infectious Diseases: None - Past Medical History & Family History Past Medical History?: Yes - Past Social History Smoking Status: Never Smoked - CARDIAC Hx Cardiac Disorders: Yes Hx Congestive Heart Failure: Yes - PULMONARY Hx Respiratory Disorders: Yes Hx Chronic Obstructive Pulmonary Disease (COPD): Yes - HEENT Hx HEENT Problems: Yes Hx Cataracts: Yes (with surgery done and IOL) - RENAL Hx Chronic Kidney Disease: Yes Hx Dialysis: Yes Type of Dialysis Access: RIGHT PERMA CATH Date of Last Dialysis Treatment: 12/07/16 - SURGICAL HISTORY Hx Surgeries: Yes Hx Vascular Access Device: Yes - ANESTHESIA Hx Anesthesia: Yes Hx Anesthesia Reactions: No Meds Allergies/Adverse Reactions: Allergies Allergy/AdvReac Type Severity Reaction Status Date / Time No Known Allergies Allergy Verified 12/08/16 16:55 - Medications Medications: Current Medications Albuterol/Ipratropium (Duoneb 3 Mg/0.5 Mg (3 Ml) Ud) 3 ml INH RQ6 PRN PRN Reason: Wheezing Allopurinol (Zyloprim) 100 mg PO DAILY [facility] Clopidogrel Bisulfate (Plavix) 75 mg PO DAILY [facility] Heparin Sodium (Porcine) (Heparin) 5,000 units SC Q12 [facility] Last Admin: 12/08/16 21:35 Dose: 5,000 units Insulin Human Regular (Novolin R) 0 unit SC ACHS [facility] PRN Reason: Protocol Last Admin: 12/08/16 21:42 Dose: 4 unit Levothyroxine Sodium (Synthroid) 50 mcg PO DAILY@0630 [facility] Pantoprazole Sodium (Protonix Ec Tab) 40 mg PO DAILY [facility] Pregabalin (Lyrica) 150 mg PO BID [facility] Sevelamer Carbonate (Renvela) 800 mg PO BIDAC [facility] Results - Vital Signs Recent Vital Signs: Last Vital Signs Temp 97.3 F L 12/08/16 22:42 Pulse 81 12/08/16 22:42 Resp 20 12/08/16 22:42 BP 192/66 H 12/08/16 22:42 Pulse Ox 100 12/08/16 22:42 - Labs Result Diagrams: 12/08/16 18:14 12/08/16 18:14 Labs: Laboratory Results - last 24 hr 12/08/16 12/08/16 21:00 21:27 POC Glucose (mg/dL) 297 H Hemoglobin A1c 8.9 H
--- NOTE | 2016-12-09 05:37 | CP.PCM.CON ---
History of Present Illness - History of Present Illness History of Present Illness: Vascular Surgery Dr. Frank 81 y/o [place]-speaking M w/ PMHx of SD, DM, HTN, CKD, meningeoma was admitted for cardiac clearance for L AVF revision this week. Pt has recent h/o SD and in on plavix. Currently pt is comfortable. Denies F/C/N/V/D/CP/SOB. Reports that he has been getting HD on using his HD catheter. Pt had AVF creation on . PMHx: SD, DM, HTN, CKD, meningeoma, ESRD on HD Meds: reviewed in chart PSHx: B/L CEAs, L AVF FHx: non contributory SHx: former smoker; denies EtOH, Drug use Review of Systems - Review of Systems Review of Systems: see HPI Past Patient History - Infectious Disease Hx of Infectious Diseases: None - Past Medical History & Family History Past Medical History?: Yes - Past Social History Smoking Status: Never Smoked - CARDIAC Hx Cardiac Disorders: Yes Hx Congestive Heart Failure: Yes - PULMONARY Hx Respiratory Disorders: Yes Hx Asthma: Yes Hx Chronic Obstructive Pulmonary Disease (COPD): Yes - NEUROLOGICAL Hx Neurological Disorder: No - HEENT Hx HEENT Problems: Yes Hx Cataracts: Yes (with surgery done and IOL) - RENAL Hx Chronic Kidney Disease: Yes Hx Dialysis: Yes Type of Dialysis Access: RIGHT PERMA CATH Date of Last Dialysis Treatment: 12/07/16 - ENDOCRINE/METABOLIC Hx Endocrine Disorders: Yes Hx Diabetes Mellitus Type 2: Yes Hx Hypothyroidism: Yes - HEMATOLOGICAL/ONCOLOGICAL Hx Blood Disorders: Yes Hx Anemia: Yes - INTEGUMENTARY Hx Dermatological Problems: No - MUSCULOSKELETAL/RHEUMATOLOGICAL Hx Musculoskeletal Disorders: No Hx Falls: No - GASTROINTESTINAL Hx Gastrointestinal Disorders: No - GENITOURINARY/GYNECOLOGICAL Hx Genitourinary Disorders: No - PSYCHIATRIC Hx Psychophysiologic Disorder: No Hx Substance Use: No - SURGICAL HISTORY Hx Surgeries: Yes Hx Vascular Access Device: Yes Other/Comment: L arm AV Fistula-2 months ago. Insertion of Perma Cath to R chest 2 months ago - ANESTHESIA Hx Anesthesia: Yes Hx Anesthesia Reactions: No Hx Malignant Hyperthermia: No Has any member of the family had a problem w/ anesthesia?: No Meds Allergies/Adverse Reactions: Allergies Allergy/AdvReac Type Severity Reaction Status Date / Time No Known Allergies Allergy Verified 12/08/16 16:55 - Medications Medications: Current Medications Albuterol/Ipratropium (Duoneb 3 Mg/0.5 Mg (3 Ml) Ud) 3 ml INH RQ6 PRN PRN Reason: Wheezing Allopurinol (Zyloprim) 100 mg PO DAILY [facility] Clopidogrel Bisulfate (Plavix) 75 mg PO DAILY [facility] Heparin Sodium (Porcine) (Heparin) 5,000 units SC Q12 [facility] Last Admin: 12/08/16 21:35 Dose: 5,000 units Insulin Human Regular (Novolin R) 0 unit SC ACHS [facility] PRN Reason: Protocol Last Admin: 12/08/16 21:42 Dose: 4 unit Levothyroxine Sodium (Synthroid) 50 mcg PO DAILY@0630 [facility] Pantoprazole Sodium (Protonix Ec Tab) 40 mg PO DAILY [facility] Pneumococcal Polyvalent Vaccine (Pneumovax 23 Vaccine) 0.5 ml IM .ONCE ONE Stop: 12/11/16 14:01 Pregabalin (Lyrica) 150 mg PO BID [facility] Sevelamer Carbonate (Renvela) 800 mg PO BIDAC [facility] Physical Exam - Constitutional Appears: No Acute Distress - Head Exam Head Exam: ATRAUMATIC, NORMAL INSPECTION, NORMOCEPHALIC - Eye Exam Eye Exam: EOMI, Normal appearance, PERRL Pupil Exam: NORMAL ACCOMODATION, PERRL - ENT Exam ENT Exam: Mucous Membranes Moist, Normal Exam - Neck Exam Neck exam: Positive for: Normal Inspection - Respiratory Exam Respiratory Exam: Clear to Auscultation Bilateral, NORMAL BREATHING PATTERN - Cardiovascular Exam Cardiovascular Exam: REGULAR RHYTHM - GI/Abdominal Exam GI & Abdominal Exam: Normal Bowel Sounds, Soft. absent: Distended, Tenderness - Extremities Exam Extremities exam: Positive for: full ROM, normal capillary refill, pedal pulses present. Negative for: normal inspection, tenderness Additional comments: No L arm swelling, Thrills and bruits present. Warm - Back Exam Back exam: NORMAL INSPECTION - Neurological Exam Neurological exam: Alert, CN II-XII Intact, Normal Gait, Oriented x3, Reflexes Normal - Psychiatric Exam Psychiatric exam: Normal Affect, Normal Mood - Skin Skin Exam: Dry, Intact, Normal Color, Warm Results - Vital Signs Recent Vital Signs: Last Vital Signs Temp 98 F 12/08/16 23:40 Pulse 72 12/09/16 04:17 Resp 20 12/09/16 00:27 BP 161/74 H 12/08/16 23:40 Pulse Ox 99 12/08/16 23:40 - Labs Result Diagrams: 12/08/16 18:14 12/08/16 18:14 Labs: Laboratory Results - last 24 hr 12/08/16 12/08/16 21:00 21:27 POC Glucose (mg/dL) 297 H Hemoglobin A1c 8.9 H Assessment & Plan - Assessment and Plan (Free Text) Assessment: ESRD on HD needing L AVF revision -L arm precaution - OK to continue Plavix - NPO after mindinigt tonight -OR for L AVF revision on -Medical management -Cardiac clearance for recent SD -Stress test on wed -Continue using HD catheter for now. REKHA Frank
[2016-12-09] MEDS: Levothyroxine 50 MCG TAB PO SCH (06:15)
[2016-12-09 07:30] LABS: BASO # 0.1 K/uL (0.0-0.2); BASO % 1.1 % (0.0-2.0); EOS # 0.6 K/uL (0.0-0.7); EOS % 9.1 % (0.0-4.0); HEMOGLOBIN 11.6 g/dL (12.0-18.0); LYMPH # 2.7 K/uL (1.0-4.3); MEAN CELL VOLUME 94.5 fL (80.0-94.0); MEAN CORPUSCULAR HEMOGLOBIN 31.7 pg (27.0-31.0); MEAN CORPUSCULAR HGB CONC 33.5 g/dL (33.0-37.0); MEAN PLATELET VOLUME 8.2 fL (7.2-11.7); MONO # 0.6 K/uL (0.0-0.8); NEUT # 2.4 K/uL (1.8-7.0); NEUT % 37.8 % (50.0-75.0); NRBC % 0.1 % (0.0-2.0); RBC 3.67 Mil/uL (4.40-5.90); RED CELL DISTRIBUTION WIDTH 15.2 % (11.5-14.5); WHITE BLOOD COUNT 6.4 K/uL (4.8-10.8)
[2016-12-09] MEDS: (Novolin R) Insulin Human Regular 100 units/ml vial SC SCH ×4 (07:37→22:44)
[2016-12-09 07:39] LABS: ALBUMIN 3.2 g/dL (3.5-5.0)
[2016-12-09 07:41] LABS: ALB/GLOB RATIO 1.1 (1.0-2.1)
[2016-12-09 07:42] LABS: CALCIUM 8.9 mg/dl (8.6-10.4); MAGNESIUM 2.1 mg/dL (1.6-2.3)
[2016-12-09] MEDS ORDERED: Aminophylline 25 mg/ml Inj ONE (07:45)
--- NOTE | 2016-12-09 08:12 | RAD ---
PROCEDURE: CHEST RADIOGRAPH, 1 VIEW HISTORY: Right dialysis catheter. COMPARISON: 11/12/2016 FINDINGS: LUNGS: Mild venous congestion. Lines and tubes stable position. PLEURA: No pneumothorax or pleural fluid seen. CARDIOVASCULAR: Calcification at the aortic knob. OSSEOUS STRUCTURES: No significant abnormalities. VISUALIZED UPPER ABDOMEN: Normal. OTHER FINDINGS: None. IMPRESSION: Mild venous congestion.
[2016-12-09] MEDS ORDERED: (Lantus) Insulin Glargine, Recombinant SC SCH (10:00)
[2016-12-09] MEDS: Pantoprazole 40 mg EC Tab PO SCH (10:35)
--- NOTE | 2016-12-09 12:49 | CP.PCM.CON ---
History of Present Illness - History of Present Illness History of Present Illness: HPI: 81M with PMHx of HTN, DM, COPD, Hypothryroidism, ESRD on HD (MWF) presents to the ED for medical clearance. There's an issue with the patient's dialysis fistula. Plan is for medical and cardiac clearance, and OR . No acute complaints. Denied fever, chills, headache, chest pain, abdominal pain, n/v/d/c , or urinary symptoms. PMHx: HTN, DM, COPD, Hypothryroidism, ESRD on HD (MWF) PSHx: AV FISTULA, PERMCATH Meds: As per JUL All: NKDA SHx: Denied x 3 FHx: Unremarkable S/P EST NEEDS DILAYSIS TODAY, THEN MWF- WILL ARAE Review of Systems - Constitutional Constitutional: absent: As Per HPI, Anorexia, Chills, Daytime Sleepiness, Excessive Sweating, Fatigue, Fever, Frequent Falls, Headache, Increased Appetite , Lethargy, Malaise, Night Sweats, Snoring, Sleep Apnea, Weight Gain, Weight Loss, Weakness, Other - EENT Eyes: absent: As Per HPI, Blind Spots, Blurred Vision, Change in Vision, Decreased Night Vision, Diplopia, Discharge, Dry Eye, Exophthalmos, Floaters, Irritation, Itchy Eyes, Loss of Peripheral Vision, Pain, Photophobia, Requires Corrective Lenses, Sees Flashes, Spots in Vision, Tunnel Vision, Other Visual Disturbances, Loss of Vision, Other Ears: absent: As Per HPI, Decreased Hearing, Ear Discharge, Ear Pain, Tinnitus, Abnormal Hearing, Disequilibrium, Dizziness, Other - Cardiovascular Cardiovascular: Dyspnea on Exertion - Respiratory Respiratory: Cough, Dyspnea on Exertion - Gastrointestinal Gastrointestinal: absent: As Per HPI, Abdominal Pain, Belching, Bloating, Change in Bowel Habits, Change in Stool Character, Coffee Ground Emesis, Constipation, Cramping, Diarrhea, Dyspepsia, Dysphagia, Early Satiety, Excessive Flatus, Fecal Incontinence, Heartburn, Hematemesis, Hematochezia, Loose Stools, Melena, Nausea, Odynophagia, Temesmus, Vomiting, Other - Genitourinary Genitourinary: As Per HPI - Musculoskeletal Musculoskeletal: Muscle Weakness, Myalgias - Neurological Neurological: absent: As Per HPI, Abnormal Gait, Abnormal Hearing, Abnormal Movements, Abnormal Speech, Behavioral Changes, Burning Sensations, Confusion, Convulsions, Disequilibrium, Dizziness, Numbness, Focal Weakness, Frequent Falls , Headaches, Lack of Coordination, Loss of Vision, Memory Loss, Paresthesias, Radicular Pain, Restless Legs, Sensory Deficit, Syncope, Tingling, Tremor, Vertigo, Weakness, Other Visual Disturbances, Other - Endocrine Endocrine: absent: As Per HPI, Change in Body Appearance, Change in Libido, Cold Intolorance, Deepening of Voice, Excessive Sweating, Fatigue, Flushing, Heat Intolorance, Increase in Ring/Shoe/Hat Size, Palpitations, Polydipsia, Polyphagia, Polyuria, Other Past Patient History - Infectious Disease Hx of Infectious Diseases: None - Past Medical History & Family History Past Medical History?: Yes Past Family History: Reviewed and not pertinent - Past Social History Smoking Status: Never Smoked Chewing Tobacco Use: No Cigar Use: No Alcohol: None Home Situation {Lives}: With Family - CARDIAC Hx Cardiac Disorders: Yes Hx Congestive Heart Failure: Yes - PULMONARY Hx Respiratory Disorders: Yes Hx Asthma: Yes Hx Chronic Obstructive Pulmonary Disease (COPD): Yes - NEUROLOGICAL Hx Neurological Disorder: No - HEENT Hx HEENT Problems: Yes Hx Cataracts: Yes (with surgery done and IOL) - RENAL Hx Chronic Kidney Disease: Yes Hx Dialysis: Yes Type of Dialysis Access: RIGHT PERMA CATH Date of Last Dialysis Treatment: 12/07/16 - ENDOCRINE/METABOLIC Hx Endocrine Disorders: Yes Hx Diabetes Mellitus Type 2: Yes Hx Hypothyroidism: Yes - HEMATOLOGICAL/ONCOLOGICAL Hx Blood Disorders: Yes Hx Anemia: Yes - INTEGUMENTARY Hx Dermatological Problems: No - MUSCULOSKELETAL/RHEUMATOLOGICAL Hx Musculoskeletal Disorders: No Hx Falls: No - GASTROINTESTINAL Hx Gastrointestinal Disorders: No - GENITOURINARY/GYNECOLOGICAL Hx Genitourinary Disorders: No - PSYCHIATRIC Hx Psychophysiologic Disorder: No Hx Substance Use: No - SURGICAL HISTORY Hx Surgeries: Yes Hx Vascular Access Device: Yes Other/Comment: L arm AV Fistula-2 months ago. Insertion of Perma Cath to R chest 2 months ago - ANESTHESIA Hx Anesthesia: Yes Hx Anesthesia Reactions: No Hx Malignant Hyperthermia: No Has any member of the family had a problem w/ anesthesia?: No Meds Allergies/Adverse Reactions: Allergies Allergy/AdvReac Type Severity Reaction Status Date / Time No Known Allergies Allergy Verified 12/08/16 16:55 - Medications Medications: Current Medications Albuterol/Ipratropium (Duoneb 3 Mg/0.5 Mg (3 Ml) Ud) 3 ml INH RQ6 PRN PRN Reason: Wheezing Allopurinol (Zyloprim) 100 mg PO DAILY [facility] Last Admin: 12/09/16 10:35 Dose: Not Given Clopidogrel Bisulfate (Plavix) 75 mg PO DAILY [facility] Last Admin: 12/09/16 10:35 Dose: Not Given Heparin Sodium (Porcine) (Heparin) 5,000 units SC Q12 [facility] Last Admin: 12/09/16 10:34 Dose: Not Given Insulin Human Regular (Novolin R) 0 unit SC ACHS [facility] PRN Reason: Protocol Last Admin: 12/09/16 07:37 Dose: Not Given Levothyroxine Sodium (Synthroid) 50 mcg PO DAILY@0630 [facility] Last Admin: 12/09/16 06:15 Dose: 50 mcg Pantoprazole Sodium (Protonix Ec Tab) 40 mg PO DAILY [facility] Last Admin: 12/09/16 10:35 Dose: Not Given Pneumococcal Polyvalent Vaccine (Pneumovax 23 Vaccine) 0.5 ml IM .ONCE ONE Stop: 12/11/16 14:01 Pregabalin (Lyrica) 150 mg PO BID [facility] Last Admin: 12/09/16 10:34 Dose: Not Given Sevelamer Carbonate (Renvela) 800 mg PO BIDAC [facility] Last Admin: 12/09/16 07:46 Dose: Not Given Physical Exam - Constitutional Appears: Non-toxic, No Acute Distress - Head Exam Head Exam: ATRAUMATIC, NORMAL INSPECTION - Eye Exam Eye Exam: EOMI, Normal appearance - Neck Exam Neck exam: Positive for: Normal Inspection. Negative for: Tenderness - Respiratory Exam Respiratory Exam: Clear to Auscultation Bilateral, NORMAL BREATHING PATTERN - Cardiovascular Exam Cardiovascular Exam: REGULAR RHYTHM, +S1 - GI/Abdominal Exam GI & Abdominal Exam: Soft. absent: Tenderness - Extremities Exam Extremities exam: Positive for: normal inspection. Negative for: tenderness - Neurological Exam Neurological exam: Alert, CN II-XII Intact, Oriented x3 - Skin Skin Exam: Dry, Warm Results - Vital Signs Recent Vital Signs: Last Vital Signs Temp 97.7 F 12/09/16 07:00 Pulse 67 12/09/16 07:00 Resp 20 12/09/16 07:00 BP 165/72 H 12/09/16 07:00 Pulse Ox 99 12/09/16 07:00 - Labs Result Diagrams: 12/09/16 07:03 12/09/16 07:03 Labs: Laboratory Results - last 24 hr 12/08/16 12/08/16 12/09/16 21:00 21:27 06:32 WBC RBC Hgb Hct MCV MCH MCHC RDW Plt Count MPV Neut % (Auto) Lymph % (Auto) Gilchrist % (Auto) Eos % (Auto) Baso % (Auto) Neut # Lymph # Gilchrist # Eos # Baso # Sodium Potassium Chloride Carbon Dioxide Anion Gap BUN Creatinine Est GFR ( Amer) Est GFR (Non-Af Amer) POC Glucose (mg/dL) 297 H 234 H Random Glucose Hemoglobin A1c 8.9 H Calcium Phosphorus Magnesium Total Bilirubin AST ALT Alkaline Phosphatase Total Protein Albumin Globulin Albumin/Globulin Ratio 12/09/16 12/09/16 07:03 07:03 WBC 6.4 RBC 3.67 L Hgb 11.6 L Hct 34.7 L MCV 94.5 H MCH 31.7 H MCHC 33.5 RDW 15.2 H Plt Count 150 MPV 8.2 Neut % (Auto) 37.8 L Lymph % (Auto) 42.0 H Gilchrist % (Auto) 10.0 Eos % (Auto) 9.1 H Baso % (Auto) 1.1 Neut # 2.4 Lymph # 2.7 Gilchrist # 0.6 Eos # 0.6 Baso # 0.1 Sodium 134 Potassium 4.1 Chloride 99 Carbon Dioxide 27 Anion Gap 13 BUN 29 H Creatinine 2.5 H Est GFR ( Amer) 30 Est GFR (Non-Af Amer) 25 POC Glucose (mg/dL) Random Glucose 238 H Hemoglobin A1c Calcium 8.9 Phosphorus 4.3 Magnesium 2.1 Total Bilirubin 0.5 AST 24 ALT 29 Alkaline Phosphatase 88 Total Protein 6.1 L Albumin 3.2 L Globulin 2.9 Albumin/Globulin Ratio 1.1 Assessment & Plan (1) CAD (coronary artery disease) Status: Acute (2) Type 2 diabetes mellitus with diabetic nephropathy Status: Acute (3) Dialysis AV fistula malfunction Status: Acute (4) ESRD (end stage renal disease) Status: Acute - Assessment and Plan (Free Text) Plan: ARRANGE FOR HD MWF AV FISTULA REVISION EST PENDING
--- NOTE | 2016-12-09 14:55 | CP.PCM.PN ---
<Renee Casanova - Last Filed: 12/09/16 19:31> Subjective - Date & Time of Evaluation Date of Evaluation: 12/09/16 Time of Evaluation: 07:30 - Subjective Subjective: PGY1- Medicine Note- Dr. Su's Service Patient seen and examined at bedside today and in no acute distress. Patient denies chest pain, shortness of breath, or abdominal pain. Objective - Vital Signs/Intake and Output Vital Signs (last 24 hours): Temp Pulse Resp BP Pulse Ox 97.7 F 67 20 165/72 H 99 12/09/16 07:00 12/09/16 07:00 12/09/16 07:00 12/09/16 07:00 12/09/16 07:00 - Medications Medications: Current Medications Albuterol/Ipratropium (Duoneb 3 Mg/0.5 Mg (3 Ml) Ud) 3 ml INH RQ6 PRN PRN Reason: Wheezing Allopurinol (Zyloprim) 100 mg PO DAILY [facility] Last Admin: 12/09/16 10:35 Dose: Not Given Clopidogrel Bisulfate (Plavix) 75 mg PO DAILY [facility] Last Admin: 12/09/16 10:35 Dose: Not Given Heparin Sodium (Porcine) (Heparin) 5,000 units SC Q12 [facility] Last Admin: 12/09/16 10:34 Dose: Not Given Insulin Human Regular (Novolin R) 0 unit SC ACHS [facility] PRN Reason: Protocol Last Admin: 12/09/16 12:30 Dose: Not Given Levothyroxine Sodium (Synthroid) 50 mcg PO DAILY@0630 [facility] Last Admin: 12/09/16 06:15 Dose: 50 mcg Pantoprazole Sodium (Protonix Ec Tab) 40 mg PO DAILY [facility] Last Admin: 12/09/16 10:35 Dose: Not Given Pneumococcal Polyvalent Vaccine (Pneumovax 23 Vaccine) 0.5 ml IM .ONCE ONE Stop: 12/11/16 14:01 Pregabalin (Lyrica) 150 mg PO BID [facility] Last Admin: 12/09/16 10:34 Dose: Not Given Sevelamer Carbonate (Renvela) 800 mg PO BIDAC [facility] Last Admin: 12/09/16 07:46 Dose: Not Given - Labs Labs: 12/09/16 07:03 12/09/16 07:03 PT 10.5 SECONDS (9.7-12.2) 12/08/16 18:14 INR 0.9 12/08/16 18:14 APTT 32 SECONDS (21-34) 12/08/16 18:14 - Constitutional Appears: Well, Non-toxic, No Acute Distress - Head Exam Head Exam: ATRAUMATIC, NORMAL INSPECTION, NORMOCEPHALIC - Eye Exam Eye Exam: EOMI Additional comments: right pupil oval, larger than left pupil and nonreactive to light left pupil oval and reacts to light and accommodates - ENT Exam ENT Exam: Mucous Membranes Moist, Normal Exam - Neck Exam Neck Exam: Full ROM, Normal Inspection. absent: Lymphadenopathy, Tenderness - Respiratory Exam Respiratory Exam: Clear to Ausculation Bilateral, NORMAL BREATHING PATTERN. absent: Rales, Rhonchi, Wheezes, Respiratory Distress, Stridor - Cardiovascular Exam Cardiovascular Exam: REGULAR RHYTHM, RRR, +S1, +S2. absent: Gallop, Rubs, Murmur - GI/Abdominal Exam GI & Abdominal Exam: Soft, Normal Bowel Sounds. absent: Distended, Firm, Guarding, Rigid, Tenderness - Extremities Exam Extremities Exam: Full ROM. absent: Pedal Edema, Tenderness Additional comments: left arm av fistula with palpable thrill - Back Exam Back Exam: NORMAL INSPECTION - Neurological Exam Neurological Exam: Alert, Awake, Oriented x3 - Psychiatric Exam Psychiatric exam: Normal Affect, Normal Mood - Skin Skin Exam: Intact, Normal Color, Warm Additional comments: right chest permacath in place left arm av fistula Assessment and Plan - Assessment and Plan (Free Text) Assessment: Nonfunctioning AV Fistula * Surgery on board- Dr. Frank- after medical and cardiac clearance plan is for OR for left av fistula revision * Dr. Garcia consulted for cardiac clearance, stress test done 12/09 * patient cleared for surgery as per cardio despite moderate to high risk for surgery as benefits outweigh risks ESRD on HD (MWF) * Nephrology consulted Dr. Cain saw patient on 12/09 and recommends HD MWF * patient received HD on 12/09 * Renvela 800 mg PO BIDAC * Renal Diet DM * ISS * Accuchecks COPD * Duonebs PRN Hypothryroidism * Resumed home medications: Synthroid 50mcg PO daily HTN * 12/09 added hydralazine 10 mg PO q6h HX Gout Allopurinol 100 mg PO daily Prophylactic Measures * GI PPX: Protonix 40mg PO daily * DVT PPX: Heparin 5000 SC Q12, SCDs, hold heparin for av fistula revision on <Dilan Su - Last Filed: 12/09/16 20:12> Objective - Vital Signs/Intake and Output Vital Signs (last 24 hours): Temp Pulse Resp BP Pulse Ox 97.9 F 97 H 18 126/69 98 12/09/16 18:03 12/09/16 18:03 12/09/16 18:03 12/09/16 18:03 12/09/16 18:03 Intake and Output: 12/09/16 12/10/16 18:59 06:59 Intake Total 30 Balance 30 - Medications Medications: Current Medications Albuterol/Ipratropium (Duoneb 3 Mg/0.5 Mg (3 Ml) Ud) 3 ml INH RQ6 PRN PRN Reason: Wheezing Allopurinol (Zyloprim) 100 mg PO DAILY [facility] Last Admin: 12/09/16 10:35 Dose: Not Given Clopidogrel Bisulfate (Plavix) 75 mg PO DAILY [facility] Last Admin: 12/09/16 10:35 Dose: Not Given Heparin Sodium (Porcine) (Heparin) 5,000 units SC Q12 [facility] Last Admin: 12/09/16 10:34 Dose: Not Given Hydralazine HCl (Apresoline) 10 mg PO QID [facility] Last Admin: 12/09/16 18:00 Dose: Not Given Insulin Human Regular (Novolin R) 0 unit SC ACHS [facility] PRN Reason: Protocol Last Admin: 12/09/16 18:26 Dose: 4 unit Levothyroxine Sodium (Synthroid) 50 mcg PO DAILY@0630 [facility] Last Admin: 12/09/16 06:15 Dose: 50 mcg Pantoprazole Sodium (Protonix Ec Tab) 40 mg PO DAILY [facility] Last Admin: 12/09/16 10:35 Dose: Not Given Pneumococcal Polyvalent Vaccine (Pneumovax 23 Vaccine) 0.5 ml IM .ONCE ONE Stop: 12/11/16 14:01 Pregabalin (Lyrica) 150 mg PO BID [facility] Last Admin: 12/09/16 19:36 Dose: 150 mg Sevelamer Carbonate (Renvela) 800 mg PO BIDAC [facility] Last Admin: 12/09/16 19:36 Dose: 800 mg - Labs Labs: 12/09/16 07:03 12/09/16 07:03 PT 10.5 SECONDS (9.7-12.2) 12/08/16 18:14 INR 0.9 12/08/16 18:14 APTT 32 SECONDS (21-34) 12/08/16 18:14 Attending/Attestation - Attestation I have personally seen and examined this patient.: Yes I have fully participated in the care of the patient.: Yes I have reviewed all pertinent clinical information, including history, physical exam and plan: Yes Notes (Text): 12/09/16 20:10 Patient was seen and examined at 6:45 PM 12/09/16 with Son Jose [phone] present. Please note patient also has Right Chest Perm Cath. Dilan Su D.O.
[2016-12-09] MEDS ORDERED: Sodium Chloride 0.9% 1,000 ML IV SCH (18:00)
--- NOTE | 2016-12-09 18:25 | CARD ---
APPROVED REPORT Protocol: PHARMACOLOGICAL STRESS Test Type: LEXISCAN Test Indications: ESRD,[facility]. DM Medications: LIST SCAN Medical History: ESRD, [facility]. DM, DIALYSIS FISTULA Target HR: 139 bpm Resting ECG: abnormal Resting Heart Rate: 72 bpm Resting Blood Pressure: 160/60mmHg submaximum (85%): 118 bpm TEST SUMMARY [id number]/60.2. INFUSIONDOSE 100:[id number]/60.5. [id number]/60.0. PROCEDURE Pharmacologic stress testing was performed using 0.4mg per 5ml of regadenoson given intravenously over 7-10 seconds. POST EXERCISE Reason for Termination: Lexiscan protocol completed Target HR: No Max HR: 73 bpm 64% of Maximum Predicted HR: 139 bpm Exercise duration: 00:30 min:sec, 0 Stage Exercise capacity: 1.0METs Max Blood Pressure: 160/60mmHg Blood Pressure response to exercise: normal resting BP - appropriate response Heart Rate response to exercise: appropriate Chest Pain: No, none Angina index: 0 Arrhythmia: No, none ST Change: No, none Deviation: 0 mm INTERPRETATION Stress EKG Conclusion: Nuclear report to follow EXAM: Myocardial Perfusion STRESS/REST Imaging Protocol The imaging protocol used to acquire images was Stress Tc-99m/rest Tc-99m 1 day Stress Spect myocardial perfusion imaging was performed in supine position 41 minutes following the injection of 13 mCi of Tc-99 Myoview. Gated Rest Spect was performed 40 minutes after intravenous 32.5 mCi Tc-99 Myoview injection. The images were gated to evaluate regional wall motion and calculate ventricular ejection fraction.Images were reconstructed using backfilter projection method in short horizontal and verticle long axis. Spect slices were generated. RESTING DATA EDV82.12ihOX4.90L/min ESV33.00mlMyocardial Cixt449.00g Av. Heart Exmc622.00bpm EF60.00% STRESS DATA EDV97.00tcFA9.60L/min ESV49.00mlMyocardial Vuyq667.00g EF49.00% Regional WT score at stress:2.00 Regional WM score at stress:0.00 Summed WT score at stress:21.00 Av. Heart Rate75.00bpmSummed WM score at stress:22.00 LV Perf. Quant 17 Seg. SSS0.00 17 Seg. SRS0.00 17 Seg. SDS0.00 Stress Defect Extent (% LAD)0.00Rest Defect Extent (% LAD)0.00Rev. Defect Extent (% LAD)0.00 Stress Defect Extent (% LCX)0.00Rest Defect Extent (% LCX)5.00Rev. Defect Extent (% LCX)0.00 Stress Defect Extent (% RCA)0.00Rest Defect Extent (% RCA)0.00Rev. Defect Extent (% RCA)0.00 Stress Defect Extent (% DOROTHY)0.00Rest Defect Extent (% DOROTHY)0.90Rev. Defect Extent (% DOROTHY)0.00 Other Information Quality:Good Conclusion 1. There is no stress induced perfusion defect or Transient ischemic dilation noted. However there is a slight drop in EF with stress test 2. Abnormal stress test
--- NOTE | 2016-12-09 18:31 | CP.PCM.PN ---
Subjective - Date & Time of Evaluation Date of Evaluation: 12/09/16 Time of Evaluation: 18:26 - Subjective Subjective: Patient seen and evaluated S/P Stress test No stress induced perfusion defect or Transient Ischemic Dilation However there is some drop in EF with Stress test Do not recommend coronary re vascularization at this time since it may not change the outcome Rsik of coronary events for AV fistula revision surgery is moderate Patient understands the risk and willing to undergo the procedure Recommend to proceed with the surgery Thank you Objective - Vital Signs/Intake and Output Vital Signs (last 24 hours): Temp Pulse Resp BP Pulse Ox 97.9 F 97 H 18 126/69 98 12/09/16 18:03 12/09/16 18:03 12/09/16 18:03 12/09/16 18:03 12/09/16 18:03 Intake and Output: 12/09/16 12/09/16 06:59 18:59 Intake Total 30 Balance 30 - Medications Medications: Current Medications Albuterol/Ipratropium (Duoneb 3 Mg/0.5 Mg (3 Ml) Ud) 3 ml INH RQ6 PRN PRN Reason: Wheezing Allopurinol (Zyloprim) 100 mg PO DAILY [facility] Last Admin: 12/09/16 10:35 Dose: Not Given Clopidogrel Bisulfate (Plavix) 75 mg PO DAILY [facility] Last Admin: 12/09/16 10:35 Dose: Not Given Heparin Sodium (Porcine) (Heparin) 5,000 units SC Q12 [facility] Last Admin: 12/09/16 10:34 Dose: Not Given Hydralazine HCl (Apresoline) 10 mg PO QID [facility] Insulin Human Regular (Novolin R) 0 unit SC ACHS [facility] PRN Reason: Protocol Last Admin: 12/09/16 12:30 Dose: Not Given Levothyroxine Sodium (Synthroid) 50 mcg PO DAILY@0630 [facility] Last Admin: 12/09/16 06:15 Dose: 50 mcg Pantoprazole Sodium (Protonix Ec Tab) 40 mg PO DAILY [facility] Last Admin: 12/09/16 10:35 Dose: Not Given Pneumococcal Polyvalent Vaccine (Pneumovax 23 Vaccine) 0.5 ml IM .ONCE ONE Stop: 12/11/16 14:01 Pregabalin (Lyrica) 150 mg PO BID [facility] Last Admin: 12/09/16 10:34 Dose: Not Given Sevelamer Carbonate (Renvela) 800 mg PO BIDAC [facility] Last Admin: 12/09/16 07:46 Dose: Not Given - Labs Labs: 12/09/16 07:03 12/09/16 07:03 PT 10.5 SECONDS (9.7-12.2) 12/08/16 18:14 INR 0.9 12/08/16 18:14 APTT 32 SECONDS (21-34) 12/08/16 18:14
[2016-12-10] MEDS ORDERED: Sodium Chloride 0.9% 1,000 ML IV SCH ×2 (00:01→15:45)
[2016-12-10] MEDS: Levothyroxine 50 MCG TAB PO SCH (05:32)
--- NOTE | 2016-12-10 07:36 | CP.PCM.PN ---
<Renee Casanova - Last Filed: 12/10/16 15:30> Subjective - Date & Time of Evaluation Date of Evaluation: 12/10/16 Time of Evaluation: 07:00 - Subjective Subjective: PGY-1, Medicine Note-Dr. Su's Service Patient seen and examined at bedside and in no acute distress. Patient is pleasant and sitting up in bed getting his morning medications. Patient denies chest pain, shortness of breath, cough, fever, cold and hot intolerance, headaches, abdominal pain, nausea, vomiting, dysuria, leg pain. Patient's last bowel movement was yesterday, and reports regular urination. Denies any other complaints. Objective - Vital Signs/Intake and Output Vital Signs (last 24 hours): Temp Pulse Resp BP Pulse Ox 98.1 F 73 20 170/81 H 96 12/10/16 06:44 12/10/16 06:44 12/10/16 06:44 12/10/16 06:44 12/10/16 06:44 - Medications Medications: Current Medications Albuterol/Ipratropium (Duoneb 3 Mg/0.5 Mg (3 Ml) Ud) 3 ml INH RQ6 PRN PRN Reason: Wheezing Allopurinol (Zyloprim) 100 mg PO DAILY [facility] Last Admin: 12/09/16 10:35 Dose: Not Given Clopidogrel Bisulfate (Plavix) 75 mg PO DAILY [facility] Last Admin: 12/09/16 10:35 Dose: Not Given Heparin Sodium (Porcine) (Heparin) 5,000 units SC Q12 [facility] Last Admin: 12/09/16 22:38 Dose: 5,000 units Hydralazine HCl (Apresoline) 10 mg PO QID [facility] Last Admin: 12/10/16 06:55 Dose: 10 mg Insulin Human Regular (Novolin R) 0 unit SC ACHS [facility] PRN Reason: Protocol Last Admin: 12/09/16 22:44 Dose: 2 unit Levothyroxine Sodium (Synthroid) 50 mcg PO DAILY@0630 [facility] Last Admin: 12/10/16 05:32 Dose: 50 mcg Pantoprazole Sodium (Protonix Ec Tab) 40 mg PO DAILY [facility] Last Admin: 12/09/16 10:35 Dose: Not Given Pneumococcal Polyvalent Vaccine (Pneumovax 23 Vaccine) 0.5 ml IM .ONCE ONE Stop: 12/11/16 14:01 Pregabalin (Lyrica) 150 mg PO BID [facility] Last Admin: 12/09/16 19:36 Dose: 150 mg Sevelamer Carbonate (Renvela) 800 mg PO BIDAC [facility] Last Admin: 12/09/16 19:36 Dose: 800 mg - Labs Labs: 12/09/16 07:03 12/09/16 07:03 PT 10.5 SECONDS (9.7-12.2) 12/08/16 18:14 INR 0.9 12/08/16 18:14 APTT 32 SECONDS (21-34) 12/08/16 18:14 - Constitutional Appears: Well, Non-toxic, No Acute Distress - Head Exam Head Exam: ATRAUMATIC, NORMAL INSPECTION, NORMOCEPHALIC - Eye Exam Eye Exam: EOMI Additional comments: right pupil oval, larger than left pupil and nonreactive to light left pupil oval and reacts to light and accommodates - ENT Exam ENT Exam: Mucous Membranes Moist - Neck Exam Neck Exam: Full ROM, Normal Inspection - Respiratory Exam Respiratory Exam: Clear to Ausculation Bilateral, NORMAL BREATHING PATTERN. absent: Rales, Rhonchi, Wheezes, Respiratory Distress, Stridor - Cardiovascular Exam Cardiovascular Exam: REGULAR RHYTHM, RRR. absent: Gallop, Rubs, Murmur - GI/Abdominal Exam GI & Abdominal Exam: Soft, Normal Bowel Sounds. absent: Distended, Firm, Guarding, Rigid - Extremities Exam Extremities Exam: Full ROM, Normal Inspection. absent: Calf Tenderness, Pedal Edema Additional comments: left arm av fistula with palpable thrill - Back Exam Back Exam: NORMAL INSPECTION - Neurological Exam Neurological Exam: Alert, Awake, Oriented x3 - Psychiatric Exam Psychiatric exam: Normal Affect, Normal Mood - Skin Skin Exam: Intact, Normal Color, Warm Additional comments: right chest permacath in place left arm av fistula Assessment and Plan - Assessment and Plan (Free Text) Assessment: Nonfunctioning AV Fistula * Surgery on board- Dr. Frank- OR today for left av fistula revision * Dr. Garcia consulted for cardiac clearance, stress test done 12/09 * patient cleared for surgery as per cardio despite moderate to high risk for surgery as benefits outweigh risks ESRD on HD (MWF) * Nephrology consulted Dr. Cain saw patient on 12/09 and recommends HD MWF * patient received HD on 7/12 * Renvela 800 mg PO BIDAC * Renal Diet DM * ISS * Lantus 30 sc q HS * Novolog 20 u AC * Accuchecks COPD * Duonebs PRN Hypothryroidism * continue home medications: Synthroid 50mcg PO daily HTN * 12/09 added hydralazine 10 mg PO q6h HX Gout Allopurinol 100 mg PO daily Prophylactic Measures * GI PPX: Protonix 40mg PO daily * DVT PPX: Heparin 5000 SC Q12, SCDs, hold heparin for av fistula revision on <Dilan Su - Last Filed: 12/10/16 18:40> Objective - Vital Signs/Intake and Output Vital Signs (last 24 hours): Temp Pulse Resp BP Pulse Ox 97.9 F 98 H 18 134/69 98 12/10/16 17:06 12/10/16 17:06 12/10/16 17:06 12/10/16 17:06 12/10/16 17:06 Intake and Output: 12/10/16 12/10/16 06:59 18:59 Intake Total 0 Balance 0 - Medications Medications: Current Medications Albuterol/Ipratropium (Duoneb 3 Mg/0.5 Mg (3 Ml) Ud) 3 ml INH RQ6 PRN PRN Reason: Wheezing Allopurinol (Zyloprim) 100 mg PO DAILY [facility] Last Admin: 12/10/16 11:00 Dose: Not Given Clopidogrel Bisulfate (Plavix) 75 mg PO DAILY [facility] Last Admin: 12/10/16 10:00 Dose: Not Given Heparin Sodium (Porcine) (Heparin) 5,000 units SC Q12 [facility] Last Admin: 12/09/16 22:38 Dose: 5,000 units Hydralazine HCl (Apresoline) 10 mg PO QID [facility] Last Admin: 12/10/16 17:34 Dose: 10 mg Sodium Chloride (Sodium Chloride 0.9%) 1,000 mls @ 40 mls/hr IV .Q24H [facility] Insulin Aspart (Novolog) 20 unit SC AC [facility] Last Admin: 12/10/16 17:35 Dose: 20 unit Insulin Glargine (Lantus) 30 unit SC HS [facility] Insulin Human Regular (Novolin R) 0 unit SC ACHS [facility] PRN Reason: Protocol Last Admin: 12/10/16 17:34 Dose: 4 unit Levothyroxine Sodium (Synthroid) 50 mcg PO DAILY@0630 [facility] Last Admin: 12/10/16 05:32 Dose: 50 mcg Oxycodone/Acetaminophen (Percocet 5/325 Mg Tab) 1 tab PO Q6H PRN PRN Reason: Pain, moderate (4-7) Stop: 12/13/16 15:50 Pantoprazole Sodium (Protonix Ec Tab) 40 mg PO DAILY [facility] Last Admin: 12/10/16 10:00 Dose: Not Given Pneumococcal Polyvalent Vaccine (Pneumovax 23 Vaccine) 0.5 ml IM .ONCE ONE Stop: 12/11/16 14:01 Pregabalin (Lyrica) 150 mg PO BID [facility] Last Admin: 12/10/16 17:34 Dose: 150 mg Sevelamer Carbonate (Renvela) 800 mg PO BIDAC [facility] Last Admin: 12/10/16 17:34 Dose: 800 mg - Labs Labs: 12/10/16 07:28 12/10/16 07:28 PT 10.5 SECONDS (9.7-12.2) 12/08/16 18:14 INR 0.9 12/08/16 18:14 APTT 32 SECONDS (21-34) 12/08/16 18:14 Attending/Attestation - Attestation I have personally seen and examined this patient.: Yes I have fully participated in the care of the patient.: Yes I have reviewed all pertinent clinical information, including history, physical exam and plan: Yes Notes (Text): 12/10/16 18:38 Patient was seen and examined at 11:45 AM 12/10/16 670-A Exam, Assessment and Plan were thoroughly gone over with the Resident Patient was also restarted on his home DM regimen: Lantus 30 Units SC QHS and Aspart 20 units AC Meals 12/10/16 18:39
[2016-12-10 08:12] LABS: BASO # 0.1 K/uL (0.0-0.2); BASO % 0.9 % (0.0-2.0); EOS # 0.5 K/uL (0.0-0.7); EOS % 7.8 % (0.0-4.0); HEMOGLOBIN 12.1 g/dL (12.0-18.0); LYMPH # 2.7 K/uL (1.0-4.3); LYMPH % 38.9 % (20.0-40.0); MEAN CELL VOLUME 94.9 fL (80.0-94.0); MEAN CORPUSCULAR HEMOGLOBIN 31.2 pg (27.0-31.0); MEAN CORPUSCULAR HGB CONC 32.9 g/dL (33.0-37.0); MEAN PLATELET VOLUME 8.6 fL (7.2-11.7); MONO # 0.6 K/uL (0.0-0.8); MONO % 9.1 % (0.0-10.0); NEUT % 43.3 % (50.0-75.0); RBC 3.87 Mil/uL (4.40-5.90); RED CELL DISTRIBUTION WIDTH 15.1 % (11.5-14.5)
[2016-12-10 08:17] LABS: ALBUMIN 3.3 g/dL (3.5-5.0)
[2016-12-10 08:20] LABS: ALB/GLOB RATIO 1.2 (1.0-2.1)
[2016-12-10 08:21] LABS: CALCIUM 8.3 mg/dl (8.6-10.4)
[2016-12-10] MEDS ORDERED: Iohexol 240 200 ML IJ ONE (08:26)
[2016-12-10] MEDS ORDERED: HEPARIN-NS 5,000 UNITS/500 ML 10,000 UNIT/1,000 ML BAG IV ONE (08:26)
[2016-12-10] MEDS: (Novolin R) Insulin Human Regular 100 units/ml vial SC SCH ×5 (08:29→21:32)
[2016-12-10] MEDS: Pantoprazole 40 mg EC Tab PO SCH (10:00)
--- NOTE | 2016-12-10 10:05 | CP.PCM.PN ---
Subjective - Date & Time of Evaluation Date of Evaluation: 12/10/16 Time of Evaluation: 10:02 - Subjective Subjective: s/p EST- cleared for AV F revision s/p dialysis 12/09- UF 2000ml AVF revision pending No new c/o n, v, f, c, SOB, CPs Objective - Vital Signs/Intake and Output Vital Signs (last 24 hours): Temp Pulse Resp BP Pulse Ox 97.4 F L 70 20 158/74 H 96 12/10/16 08:21 12/10/16 08:21 12/10/16 08:21 12/10/16 08:21 12/10/16 08:21 - Medications Medications: Current Medications Albuterol/Ipratropium (Duoneb 3 Mg/0.5 Mg (3 Ml) Ud) 3 ml INH RQ6 PRN PRN Reason: Wheezing Allopurinol (Zyloprim) 100 mg PO DAILY [facility] Last Admin: 12/09/16 10:35 Dose: Not Given Clopidogrel Bisulfate (Plavix) 75 mg PO DAILY [facility] Last Admin: 12/09/16 10:35 Dose: Not Given Heparin Sodium (Porcine) (Heparin) 5,000 units SC Q12 [facility] Last Admin: 12/09/16 22:38 Dose: 5,000 units Hydralazine HCl (Apresoline) 10 mg PO QID [facility] Last Admin: 12/10/16 06:55 Dose: 10 mg Insulin Human Regular (Novolin R) 0 unit SC ACHS [facility] PRN Reason: Protocol Last Admin: 12/10/16 09:30 Dose: 2 unit Levothyroxine Sodium (Synthroid) 50 mcg PO DAILY@0630 [facility] Last Admin: 12/10/16 05:32 Dose: 50 mcg Pantoprazole Sodium (Protonix Ec Tab) 40 mg PO DAILY [facility] Last Admin: 12/09/16 10:35 Dose: Not Given Pneumococcal Polyvalent Vaccine (Pneumovax 23 Vaccine) 0.5 ml IM .ONCE ONE Stop: 12/11/16 14:01 Pregabalin (Lyrica) 150 mg PO BID [facility] Last Admin: 12/09/16 19:36 Dose: 150 mg Sevelamer Carbonate (Renvela) 800 mg PO BIDAC [facility] Last Admin: 12/10/16 08:29 Dose: Not Given - Labs Labs: 12/10/16 07:28 12/10/16 07:28 PT 10.5 SECONDS (9.7-12.2) 12/08/16 18:14 INR 0.9 12/08/16 18:14 APTT 32 SECONDS (21-34) 12/08/16 18:14 - Constitutional Appears: No Acute Distress, Chronically Ill - Head Exam Head Exam: ATRAUMATIC, NORMAL INSPECTION - Eye Exam Eye Exam: EOMI, Normal appearance - Neck Exam Neck Exam: Normal Inspection. absent: Tenderness - Respiratory Exam Respiratory Exam: Clear to Ausculation Bilateral, NORMAL BREATHING PATTERN - Cardiovascular Exam Cardiovascular Exam: REGULAR RHYTHM, +S1 - GI/Abdominal Exam GI & Abdominal Exam: Soft. absent: Tenderness - Extremities Exam Extremities Exam: Normal Inspection. absent: Tenderness - Neurological Exam Neurological Exam: Alert, CN II-XII Intact - Skin Skin Exam: Dry, Warm Assessment and Plan (1) CAD (coronary artery disease) Status: Acute (2) Type 2 diabetes mellitus with diabetic nephropathy Status: Acute (3) Dialysis AV fistula malfunction Status: Acute (4) ESRD (end stage renal disease) Status: Acute - Assessment and Plan (Free Text) Plan: AV F revision Dialysis MWF Same meds
[2016-12-10] MEDS ORDERED: Sodium Chloride 0.9% 500 ML IV ONE (12:45)
[2016-12-10] MEDS ORDERED: Propofol 10 mg/ml Inj (20 ML) ONE (12:50)
[2016-12-10] MEDS ORDERED: Midazolam 2 MG/2 ML VIAL ONE (12:50)
[2016-12-10] MEDS ORDERED: ceFAZolin IV 1 gm in Dextrose 1 GM/50 ML BAG IVPB ONE (13:08)
[2016-12-10] MEDS ORDERED: Sodium Chloride 0.9% 1,000 ML IV ONE (14:49)
[2016-12-10] MEDS ORDERED: HYDROmorphone 0.5 mg/0.5 ml ISec IVP PRN (15:31)
[2016-12-10] MEDS ORDERED: Sodium Chloride 3% 500 ML IV ONE (15:33)
--- NOTE | 2016-12-10 15:44 | PCM.SURG1 ---
Surgeon's Initial Post Op Note - Surgeon's Notes Surgeon: Dr. Lenard Frank Heel Finisher: Carrie Etienne, PGY3; Jumana Morales, PGY2; Kia Ogden, OMS3 Pre-Operative Diagnosis: malfunctioning L AV fistula Operative Findings: See full operative report Post-Operative Diagnosis: same Operation Performed: Left AV fistula revision with hybrid graft shunt and balloon dilation Specimen/Specimens Removed: none Estimated Blood Loss: EBL {In ML}: 150 Date of Surgery/Procedure: 12/10/16 Time of Surgery/Procedure: 13:30
--- NOTE | 2016-12-10 15:45 | CARD ---
APPROVED REPORT EKG Measurement Heart [id number] SD [id number] <Conclusion> Normal sinus rhythm Left axis deviation Abnormal ECG
[2016-12-10] MEDS ORDERED: Oxycodone/Acetaminophen 5/325 mg Tab PO PRN (15:49)
--- NOTE | 2016-12-10 16:48 | RAD ---
PROCEDURE: HISTORY: Fluoroscopy for left arm hybrid graft COMPARISON: None TECHNIQUE: Total fluoroscopic time utilized during the procedure: 96.6 seconds. Total dose 7.3 mGy cm squared FINDINGS: Submitted images from the current procedure: 10 Please refer to the physician's notes performing the procedure. IMPRESSION: Less than 1 hour fluoroscopic time utilized during performance of the procedure
[2016-12-10] MEDS: (Novolog) Insulin Aspart, Recombinant 100 u/ml 10 ml vial SC SCH (17:35)
[2016-12-10] MEDS ORDERED: (Lantus) Insulin Glargine, Recombinant SC SCH (22:00)
--- NOTE | 2016-12-10 22:26 | CP.PCM.PN ---
Subjective - Date & Time of Evaluation Date of Evaluation: 12/10/16 Time of Evaluation: 17:20 - Subjective Subjective: Patient seen and evaluated S/P surgery No cardiac events Comfortable Objective - Vital Signs/Intake and Output Vital Signs (last 24 hours): Temp Pulse Resp BP Pulse Ox 97.9 F 97 H 18 134/69 98 12/10/16 17:06 12/10/16 19:57 12/10/16 17:06 12/10/16 17:06 12/10/16 17:06 Intake and Output: 12/10/16 12/11/16 18:59 06:59 Intake Total 0 Balance 0 - Medications Medications: Current Medications Albuterol/Ipratropium (Duoneb 3 Mg/0.5 Mg (3 Ml) Ud) 3 ml INH RQ6 PRN PRN Reason: Wheezing Allopurinol (Zyloprim) 100 mg PO DAILY [facility] Last Admin: 12/10/16 11:00 Dose: Not Given Clopidogrel Bisulfate (Plavix) 75 mg PO DAILY [facility] Last Admin: 12/10/16 10:00 Dose: Not Given Heparin Sodium (Porcine) (Heparin) 5,000 units SC Q12 [facility] Last Admin: 12/09/16 22:38 Dose: 5,000 units Hydralazine HCl (Apresoline) 10 mg PO QID [facility] Last Admin: 12/10/16 17:34 Dose: 10 mg Sodium Chloride (Sodium Chloride 0.9%) 1,000 mls @ 40 mls/hr IV .Q24H [facility] Insulin Aspart (Novolog) 20 unit SC AC [facility] Last Admin: 12/10/16 17:35 Dose: 20 unit Insulin Glargine (Lantus) 30 unit SC HS [facility] Last Admin: 12/10/16 21:33 Dose: 30 u Insulin Human Regular (Novolin R) 0 unit SC ACHS [facility] PRN Reason: Protocol Last Admin: 12/10/16 21:32 Dose: Not Given Levothyroxine Sodium (Synthroid) 50 mcg PO DAILY@0630 [facility] Last Admin: 12/10/16 05:32 Dose: 50 mcg Oxycodone/Acetaminophen (Percocet 5/325 Mg Tab) 1 tab PO Q6H PRN PRN Reason: Pain, moderate (4-7) Stop: 12/13/16 15:50 Pantoprazole Sodium (Protonix Ec Tab) 40 mg PO DAILY [facility] Last Admin: 12/10/16 10:00 Dose: Not Given Pneumococcal Polyvalent Vaccine (Pneumovax 23 Vaccine) 0.5 ml IM .ONCE ONE Stop: 12/11/16 14:01 Pregabalin (Lyrica) 75 mg PO BID [facility] Last Admin: 12/10/16 17:34 Dose: 800 mg - Labs Labs: 12/10/16 07:28 12/10/16 07:28 PT 10.5 SECONDS (9.7-12.2) 12/08/16 18:14 INR 0.9 12/08/16 18:14 APTT 32 SECONDS (21-34) 12/08/16 18:14
[2016-12-11] MEDS: Levothyroxine 50 MCG TAB PO SCH (05:32)
[2016-12-11 07:32] LABS: BASO # 0.1 K/uL (0.0-0.2); BASO % 0.9 % (0.0-2.0); EOS # 0.5 K/uL (0.0-0.7); EOS % 6.1 % (0.0-4.0); HEMOGLOBIN 10.7 g/dL (12.0-18.0); LYMPH # 2.6 K/uL (1.0-4.3); LYMPH % 32.6 % (20.0-40.0); MEAN CELL VOLUME 94.4 fL (80.0-94.0); MEAN CORPUSCULAR HEMOGLOBIN 31.6 pg (27.0-31.0); MEAN CORPUSCULAR HGB CONC 33.5 g/dL (33.0-37.0); MEAN PLATELET VOLUME 8.6 fL (7.2-11.7); MONO # 0.7 K/uL (0.0-0.8); NEUT # 4.1 K/uL (1.8-7.0); NEUT % 51.4 % (50.0-75.0); RBC 3.37 Mil/uL (4.40-5.90); RED CELL DISTRIBUTION WIDTH 15.1 % (11.5-14.5)
[2016-12-11 07:40] LABS: ALB/GLOB RATIO 1.1 (1.0-2.1); CALCIUM 7.9 mg/dl (8.6-10.4); MAGNESIUM 1.9 mg/dL (1.6-2.3)
[2016-12-11] MEDS: (Novolog) Insulin Aspart, Recombinant 100 u/ml 10 ml vial SC SCH ×2 (08:13→11:32)
[2016-12-11] MEDS: (Novolin R) Insulin Human Regular 100 units/ml vial SC SCH ×2 (08:13→11:32)
--- NOTE | 2016-12-11 08:18 | CP.PCM.PN ---
Subjective - Date & Time of Evaluation Date of Evaluation: 12/11/16 Time of Evaluation: 07:00 - Subjective Subjective: Vascular surgery progress note for Dr. Frakn Patient s/e at bedside this AM. NAEO. Patient denies any pain, fevers, chills, extremity pain, weakness, or paralysis, chest pain or SOB Objective - Vital Signs/Intake and Output Vital Signs (last 24 hours): Temp Pulse Resp BP Pulse Ox 98.3 F 81 20 164/63 H 97 12/11/16 07:56 12/11/16 07:56 12/11/16 07:56 12/11/16 07:56 12/11/16 07:56 - Medications Medications: Current Medications Albuterol/Ipratropium (Duoneb 3 Mg/0.5 Mg (3 Ml) Ud) 3 ml INH RQ6 PRN PRN Reason: Wheezing Allopurinol (Zyloprim) 100 mg PO DAILY [facility] Last Admin: 12/10/16 11:00 Dose: Not Given Clopidogrel Bisulfate (Plavix) 75 mg PO DAILY [facility] Last Admin: 12/10/16 10:00 Dose: Not Given Heparin Sodium (Porcine) (Heparin) 5,000 units SC Q12 [facility] Last Admin: 12/10/16 23:51 Dose: 5,000 units Hydralazine HCl (Apresoline) 10 mg PO QID [facility] Last Admin: 12/10/16 23:59 Dose: 10 mg Sodium Chloride (Sodium Chloride 0.9%) 1,000 mls @ 40 mls/hr IV .Q24H [facility] Insulin Aspart (Novolog) 20 unit SC AC [facility] Last Admin: 12/11/16 08:13 Dose: 20 unit Insulin Glargine (Lantus) 30 unit SC HS [facility] Last Admin: 12/10/16 21:33 Dose: 30 u Insulin Human Regular (Novolin R) 0 unit SC ACHS [facility] PRN Reason: Protocol Last Admin: 12/11/16 08:13 Dose: 3 unit Levothyroxine Sodium (Synthroid) 50 mcg PO DAILY@0630 [facility] Last Admin: 12/11/16 05:32 Dose: 50 mcg Oxycodone/Acetaminophen (Percocet 5/325 Mg Tab) 1 tab PO Q6H PRN PRN Reason: Pain, moderate (4-7) Stop: 12/13/16 15:50 Pantoprazole Sodium (Protonix Ec Tab) 40 mg PO DAILY [facility] Last Admin: 12/10/16 10:00 Dose: Not Given Pneumococcal Polyvalent Vaccine (Pneumovax 23 Vaccine) 0.5 ml IM .ONCE ONE Stop: 12/11/16 14:01 Pregabalin (Lyrica) 75 mg PO BID [facility] Sevelamer Carbonate (Renvela) 800 mg PO BIDAC [facility] Last Admin: 12/11/16 08:13 Dose: 800 mg - Labs Labs: 12/11/16 07:05 12/11/16 07:05 PT 10.5 SECONDS (9.7-12.2) 12/08/16 18:14 INR 0.9 12/08/16 18:14 APTT 32 SECONDS (21-34) 12/08/16 18:14 - Constitutional Appears: Well, Non-toxic, No Acute Distress - Head Exam Head Exam: ATRAUMATIC, NORMOCEPHALIC - Eye Exam Eye Exam: Normal appearance. absent: Conjunctival injection, Scleral icterus - ENT Exam ENT Exam: Mucous Membranes Moist, Normal Oropharynx - Respiratory Exam Respiratory Exam: NORMAL BREATHING PATTERN. absent: Accessory Muscle Use, Respiratory Distress - Cardiovascular Exam Cardiovascular Exam: RRR - GI/Abdominal Exam GI & Abdominal Exam: Soft. absent: Distended, Tenderness - Extremities Exam Extremities Exam: absent: Calf Tenderness, Pedal Edema Additional comments: surgical dressing on left upper arm C/D/I, palpable thrill through the hybrid catheter, distal left pulse palpable, good capillary refill on the left finger tips, 5/5 market development specialist strength, full ROM - Neurological Exam Neurological Exam: Alert, Awake, Oriented x3 - Psychiatric Exam Psychiatric exam: Normal Affect, Normal Mood - Skin Skin Exam: Dry, Normal Color, Warm Assessment and Plan - Assessment and Plan (Free Text) Assessment: 81M POD#1 s/p L AVF revision with insertion of hybrid dialysis shunt Left arm and hand neurovascularly intact Plan: -Hemodialysis today via the permacath -Leave dressings intact until patient follows up with Dr. Frank outpatiently -Follow up with Dr. Frank in his office in 2 weeks -Continue to monitor for left limb neurovascular patency -analgesia -DVT/GI ppx -Medical management per primary team D/W Dr. Monika Morales, PGY2
[2016-12-11] MEDS: Pantoprazole 40 mg EC Tab PO SCH (09:39)
[2016-12-11 13:44] VITALS: RESP 18
--- NOTE | 2016-12-11 13:48 | CP.PCM.PN ---
Subjective - Date & Time of Evaluation Date of Evaluation: 12/11/16 Time of Evaluation: 08:00 - Subjective Subjective: PGY1- Medicine Note- Dr. Su's Service Patient seen and visited at bedside. Patient has a pleasant mood stating that he has no problems. Patient had a bowel movement last night, is able to urinate , and has an appetite. Denies chest pain, shortness of breath, cough, headaches , fever, chills, nausea, vomiting, leg pain. Denies any other complaints. Objective - Vital Signs/Intake and Output Vital Signs (last 24 hours): Temp Pulse Resp BP Pulse Ox 98.2 F 62 18 144/63 100 12/11/16 13:43 12/11/16 13:43 12/11/16 13:43 12/11/16 13:43 12/11/16 13:43 - Medications Medications: Current Medications Albuterol/Ipratropium (Duoneb 3 Mg/0.5 Mg (3 Ml) Ud) 3 ml INH RQ6 PRN PRN Reason: Wheezing Allopurinol (Zyloprim) 100 mg PO DAILY [facility] Last Admin: 12/11/16 09:39 Dose: Not Given Clopidogrel Bisulfate (Plavix) 75 mg PO DAILY [facility] Last Admin: 12/11/16 09:39 Dose: Not Given Heparin Sodium (Porcine) (Heparin) 5,000 units SC Q12 [facility] Last Admin: 12/11/16 09:38 Dose: Not Given Hydralazine HCl (Apresoline) 10 mg PO QID [facility] Last Admin: 12/11/16 13:41 Dose: 10 mg Sodium Chloride (Sodium Chloride 0.9%) 1,000 mls @ 40 mls/hr IV .Q24H [facility] Insulin Aspart (Novolog) 20 unit SC AC [facility] Last Admin: 12/11/16 11:32 Dose: Not Given Insulin Glargine (Lantus) 30 unit SC HS [facility] Last Admin: 12/10/16 21:33 Dose: 30 u Insulin Human Regular (Novolin R) 0 unit SC ACHS [facility] PRN Reason: Protocol Last Admin: 12/11/16 11:32 Dose: Not Given Levothyroxine Sodium (Synthroid) 50 mcg PO DAILY@0630 [facility] Last Admin: 12/11/16 05:32 Dose: 50 mcg Oxycodone/Acetaminophen (Percocet 5/325 Mg Tab) 1 tab PO Q6H PRN PRN Reason: Pain, moderate (4-7) Stop: 12/13/16 15:50 Pantoprazole Sodium (Protonix Ec Tab) 40 mg PO DAILY [facility] Last Admin: 12/11/16 09:39 Dose: Not Given Pneumococcal Polyvalent Vaccine (Pneumovax 23 Vaccine) 0.5 ml IM .ONCE ONE Stop: 12/11/16 14:01 Last Admin: 12/11/16 13:44 Dose: Not Given Pregabalin (Lyrica) 75 mg PO BID [facility] Last Admin: 12/11/16 09:39 Dose: Not Given Sevelamer Carbonate (Renvela) 800 mg PO BIDAC [facility] Last Admin: 12/11/16 08:13 Dose: 800 mg - Labs Labs: 12/11/16 07:05 12/11/16 07:05 PT 10.5 SECONDS (9.7-12.2) 12/08/16 18:14 INR 0.9 12/08/16 18:14 APTT 32 SECONDS (21-34) 12/08/16 18:14 - Constitutional Appears: Well, Non-toxic, No Acute Distress - Head Exam Head Exam: ATRAUMATIC, NORMAL INSPECTION, NORMOCEPHALIC - Eye Exam Eye Exam: EOMI, Normal appearance, PERRL - ENT Exam ENT Exam: Mucous Membranes Moist, Normal Exam - Neck Exam Neck Exam: Full ROM, Normal Inspection. absent: Lymphadenopathy, Tenderness - Respiratory Exam Respiratory Exam: Clear to Ausculation Bilateral, NORMAL BREATHING PATTERN. absent: Rales, Rhonchi, Wheezes, Respiratory Distress, Stridor - Cardiovascular Exam Cardiovascular Exam: REGULAR RHYTHM, RRR. absent: Gallop, Rubs, Murmur - GI/Abdominal Exam GI & Abdominal Exam: Soft, Normal Bowel Sounds. absent: Distended, Firm, Rigid , Tenderness - Extremities Exam Additional comments: left arm s/p av fistula covered in dressing, clean, dry, intact - Back Exam Back Exam: NORMAL INSPECTION. absent: rash noted - Neurological Exam Neurological Exam: Alert, Awake, Oriented x3 - Psychiatric Exam Psychiatric exam: Normal Affect, Normal Mood - Skin Skin Exam: Intact, Normal Color, Warm Assessment and Plan - Assessment and Plan (Free Text) Assessment: Nonfunctioning AV Fistula * 12/10: AV shunt left arm using hybrid graft with balloon dilatation performed by Dr. Frank * Dr. Garcia consulted for cardiac clearance, stress test done 12/09 * patient cleared for surgery as per cardio despite moderate to high risk for surgery as benefits outweigh risks ESRD on HD (MWF) * Nephrology consulted Dr. Cain saw patient on 12/09 and recommends HD MWF * patient received HD on 12/09 * Renvela 800 mg PO BIDAC * Renal Diet DM * ISS * Lantus 30 sc q HS * Novolog 20 u AC * Accuchecks COPD * Duonebs PRN Hypothryroidism * continue home medications: Synthroid 50mcg PO daily HTN * 12/09 added hydralazine 10 mg PO q6h HX Gout Allopurinol 100 mg PO daily Prophylactic Measures * GI PPX: Protonix 40mg PO daily * DVT PPX: Heparin 5000 SC Q12, SCDs, hold heparin for av fistula revision on
[2016-12-11] MEDS ORDERED: Pneumococcal 23-Valent Vaccine IM ONE (14:00)
--- NOTE | 2016-12-11 14:57 | CP.PCM.PN ---
Subjective - Date & Time of Evaluation Date of Evaluation: 12/11/16 Time of Evaluation: 14:54 - Subjective Subjective: Stable dialysis today s/p L UE AV fistula revision- POD#1 Feels well No new complaint Objective - Vital Signs/Intake and Output Vital Signs (last 24 hours): Temp Pulse Resp BP Pulse Ox 98.2 F 62 18 144/63 100 12/11/16 13:43 12/11/16 13:43 12/11/16 13:43 12/11/16 13:43 12/11/16 13:43 - Medications Medications: Current Medications Albuterol/Ipratropium (Duoneb 3 Mg/0.5 Mg (3 Ml) Ud) 3 ml INH RQ6 PRN PRN Reason: Wheezing Allopurinol (Zyloprim) 100 mg PO DAILY [facility] Last Admin: 12/11/16 09:39 Dose: Not Given Clopidogrel Bisulfate (Plavix) 75 mg PO DAILY [facility] Last Admin: 12/11/16 09:39 Dose: Not Given Heparin Sodium (Porcine) (Heparin) 5,000 units SC Q12 [facility] Last Admin: 12/11/16 09:38 Dose: Not Given Hydralazine HCl (Apresoline) 10 mg PO QID [facility] Last Admin: 12/11/16 13:41 Dose: 10 mg Sodium Chloride (Sodium Chloride 0.9%) 1,000 mls @ 40 mls/hr IV .Q24H [facility] Insulin Aspart (Novolog) 20 unit SC AC [facility] Last Admin: 12/11/16 11:32 Dose: Not Given Insulin Glargine (Lantus) 30 unit SC HS [facility] Last Admin: 12/10/16 21:33 Dose: 30 u Insulin Human Regular (Novolin R) 0 unit SC ACHS [facility] PRN Reason: Protocol Last Admin: 12/11/16 11:32 Dose: Not Given Levothyroxine Sodium (Synthroid) 50 mcg PO DAILY@0630 [facility] Last Admin: 12/11/16 05:32 Dose: 50 mcg Oxycodone/Acetaminophen (Percocet 5/325 Mg Tab) 1 tab PO Q6H PRN PRN Reason: Pain, moderate (4-7) Stop: 12/13/16 15:50 Pantoprazole Sodium (Protonix Ec Tab) 40 mg PO DAILY [facility] Last Admin: 12/11/16 09:39 Dose: Not Given Pregabalin (Lyrica) 75 mg PO BID [facility] Last Admin: 12/11/16 09:39 Dose: Not Given [facility] Admin: 12/11/16 08:13 Dose: 800 mg - Labs Labs: 12/11/16 07:05 12/11/16 07:05 PT 10.5 SECONDS (9.7-12.2) 12/08/16 18:14 INR 0.9 12/08/16 18:14 APTT 32 SECONDS (21-34) 12/08/16 18:14 - Constitutional Appears: No Acute Distress, Chronically Ill - Head Exam Head Exam: ATRAUMATIC, NORMAL INSPECTION - Eye Exam Eye Exam: EOMI, Normal appearance - Neck Exam Neck Exam: Normal Inspection. absent: Tenderness - Respiratory Exam Respiratory Exam: Clear to Ausculation Bilateral, NORMAL BREATHING PATTERN - Cardiovascular Exam Cardiovascular Exam: REGULAR RHYTHM, +S1 - GI/Abdominal Exam GI & Abdominal Exam: Soft. absent: Tenderness - Extremities Exam Extremities Exam: Normal Inspection. absent: Tenderness - Neurological Exam Neurological Exam: Alert, CN II-XII Intact - Skin Skin Exam: Dry, Warm Assessment and Plan (1) CAD (coronary artery disease) Status: Acute (2) Type 2 diabetes mellitus with diabetic nephropathy Status: Acute (3) Dialysis AV fistula malfunction Status: Acute (4) ESRD (end stage renal disease) Status: Acute - Assessment and Plan (Free Text) Plan: Dialysis MWF Using revised AV access now Outpt dialysis will be same as previous
--- NOTE | 2016-12-11 15:43 | CP.PCM.DIS ---
<Renee Casanova - Last Filed: 12/11/16 15:49> Provider - Provider Date of Admission: 12/08/16 20:14 Attending physician: Ayaz Meehan MD Consults: Dr. Cain (nephro) Dr. Frank (surgery) Time Spent in preparation of Discharge (in minutes): 45 Diagnosis - Discharge Diagnosis (1) Dialysis AV fistula malfunction Status: Acute Comment: please see summary for details (2) ESRD (end stage renal disease) Status: Acute Comment: please see summary for details Hospital Course - Lab Results Lab Results: Most Recent Lab Values WBC 8.0 K/uL (4.8-10.8) 12/11/16 07:05 RBC 3.37 Mil/uL (4.40-5.90) L 12/11/16 07:05 Hgb 10.7 g/dL (12.0-18.0) L 12/11/16 07:05 Hct 31.8 % (35.0-51.0) L 12/11/16 07:05 MCV 94.4 fL (80.0-94.0) H 12/11/16 07:05 MCH 31.6 pg (27.0-31.0) H 12/11/16 07:05 MCHC 33.5 g/dL (33.0-37.0) 12/11/16 07:05 RDW 15.1 % (11.5-14.5) H 12/11/16 07:05 Plt Count 131 K/uL (130-400) 12/11/16 07:05 MPV 8.6 fL (7.2-11.7) 12/11/16 07:05 Neut % (Auto) 51.4 % (50.0-75.0) 12/11/16 07:05 Lymph % (Auto) 32.6 % (20.0-40.0) 12/11/16 07:05 Falls % (Auto) 9.0 % (0.0-10.0) 12/11/16 07:05 Eos % (Auto) 6.1 % (0.0-4.0) H 12/11/16 07:05 Baso % (Auto) 0.9 % (0.0-2.0) 12/11/16 07:05 Neut # 4.1 K/uL (1.8-7.0) 12/11/16 07:05 Lymph # 2.6 K/uL (1.0-4.3) 12/11/16 07:05 Falls # 0.7 K/uL (0.0-0.8) 12/11/16 07:05 Eos # 0.5 K/uL (0.0-0.7) 12/11/16 07:05 Baso # 0.1 K/uL (0.0-0.2) 12/11/16 07:05 Differential Comment 12/10/16 07:28 PT 10.5 SECONDS (9.7-12.2) 12/08/16 18:14 INR 0.9 12/08/16 18:14 APTT 32 SECONDS (21-34) 12/08/16 18:14 Sodium 131 mmol/L (132-148) L 12/11/16 07:05 Potassium 4.1 mmol/L (3.6-5.2) 12/11/16 07:05 Chloride 96 mmol/L (98-107) L 12/11/16 07:05 Carbon Dioxide 28 mmol/L (22-30) 12/11/16 07:05 Anion Gap 11 (10-20) 12/11/16 07:05 BUN 21 mg/dL (9-20) H 12/11/16 07:05 Creatinine 2.3 MG/DL (0.8-1.5) H 12/11/16 07:05 Est GFR ( Amer) 33 12/11/16 07:05 Est GFR (Non-Af Amer) 27 12/11/16 07:05 POC Glucose (mg/dL) 121 mg/dL (65-110) H 12/11/16 11:25 Random Glucose 201 mg/dL (75-110) H 12/11/16 07:05 Hemoglobin A1c 8.9 % (4.2-6.5) H 12/08/16 21:00 Calcium 7.9 mg/dl (8.6-10.4) L 12/11/16 07:05 Phosphorus 3.2 mg/dL (2.5-4.5) 12/11/16 07:05 Magnesium 1.9 mg/dL (1.6-2.3) 12/11/16 07:05 Total Bilirubin 0.4 mg/dL (0.2-1.3) 12/11/16 07:05 AST 22 U/L (17-59) 12/11/16 07:05 ALT 28 U/L (21-72) 12/11/16 07:05 Alkaline Phosphatase 80 U/L (38-126) 12/11/16 07:05 Total Protein 5.7 g/dL (6.3-8.3) L 12/11/16 07:05 Albumin 3.0 g/dL (3.5-5.0) L 12/11/16 07:05 Globulin 2.7 gm/dL (2.2-3.9) 12/11/16 07:05 Albumin/Globulin Ratio 1.1 (1.0-2.1) 12/11/16 07:05 Blood Type A POSITIVE 12/09/16 20:16 Antibody Screen Negative 12/09/16 20:16 - Hospital Course Hospital Course: "CC: medical clearance HPI: 81M with PMHx of HTN, DM, COPD, Hypothryroidism, ESRD on HD (MWF) presents to the ED for medical clearance. There's an issue with the patient's dialysis fistula. Plan is for medical and cardiac clearance, and OR . No acute complaints. Denied fever, chills, headache, chest pain, abdominal pain, n/v/d/c , or urinary symptoms. " Dr. Frank performed AV shunt of left arm using hybrid graft with balloon dilatation on 12/10. On 12/11 patient has no complaints and received hemodialysis through right chest permacath. Patient stable for discharge as per Dr. Adal Su, Dr. Cain, and Dr. Frank. This is a summary of the patient's hospital course. Please see chart for full details. Discharge Exam - Head Exam Head Exam: ATRAUMATIC, NORMAL INSPECTION - Eye Exam Eye Exam: EOMI, Normal appearance, PERRL - ENT Exam ENT Exam: Mucous Membranes Moist - Neck Exam Neck exam: Full Rom - Respiratory Exam Respiratory Exam: Clear to PA & Lateral, NORMAL BREATHING PATTERN, UNREMARKABLE - Cardiovascular Exam Cardiovascular Exam: REGULAR RHYTHM, RRR. absent: Gallop, Rubs, Systolic Murmur - GI/Abdominal Exam GI & Abdominal Exam: Normal Bowel Sounds. absent: Distended, Firm, Guarding, Tenderness - Extremities Exam Additional comments: left av fistual wrapped in clean, dry, intact dressing - Back Exam Back exam: NORMAL INSPECTION - Neurological Exam Neurological exam: Alert, Oriented x3 - Psychiatric Exam Psychiatric exam: Normal Affect, Normal Mood - Skin Skin Exam: Normal Color, Warm Discharge Plan - Discharge Medications Prescriptions: hydrALAZINE [Apresoline] 10 mg PO QID #120 tab - Follow Up Plan Condition: FAIR Disposition: HOME/ ROUTINE Instructions: Hydralazine (By mouth), Heart Failure (DC), Dialysis Diet (DC), Diabetic Foot Care (DC), Basic Carbohydrate Counting (DC), Meal Planning with the Plate Method (DC), Meal Planning with Diabetes Exchanges (DC), Perma-cath Placement (DC) Additional Instructions: Patient cleared for discharge as per Dr. Su, Dr. Cain (nephro), and Dr. Frank (surgery). Patient to continue home medications. Patient to start Hydralazine 10 mg 4 times per day. Patient to follow up with Dr. Frank in 1 week. Patient to follow up with Dr. Cain outpatient and continue getting Hemodialysis Wednesday, Wednesday, Wednesday at [facility] through the right chest permacath. (phone:[phone]) Patient to not change dressing on left arm/ or get it wet. If symptoms return or worsen please return to the Emergency Room Immediately. Instructions explained to patient who understood and agreed. Referrals: Michele Cain MD [Staff Provider] - Lenard Frank Jr., MD [Staff Provider] - <Dilan Su - Last Filed: 12/11/16 18:51> Provider - Provider Date of Admission: 12/08/16 20:14 Attending physician: Ayaz Meehan MD Hospital Course - Lab Results Lab Results: Most Recent Lab Values WBC 8.0 K/uL (4.8-10.8) 12/11/16 07:05 RBC 3.37 Mil/uL (4.40-5.90) L 12/11/16 07:05 Hgb 10.7 g/dL (12.0-18.0) L 12/11/16 07:05 Hct 31.8 % (35.0-51.0) L 12/11/16 07:05 MCV 94.4 fL (80.0-94.0) H 12/11/16 07:05 MCH 31.6 pg (27.0-31.0) H 12/11/16 07:05 MCHC 33.5 g/dL (33.0-37.0) 12/11/16 07:05 RDW 15.1 % (11.5-14.5) H 12/11/16 07:05 Plt Count 131 K/uL (130-400) 12/11/16 07:05 MPV 8.6 fL (7.2-11.7) 12/11/16 07:05 Neut % (Auto) 51.4 % (50.0-75.0) 12/11/16 07:05 Lymph % (Auto) 32.6 % (20.0-40.0) 12/11/16 07:05 Falls % (Auto) 9.0 % (0.0-10.0) 12/11/16 07:05 Eos % (Auto) 6.1 % (0.0-4.0) H 12/11/16 07:05 Baso % (Auto) 0.9 % (0.0-2.0) 12/11/16 07:05 Neut # 4.1 K/uL (1.8-7.0) 12/11/16 07:05 Lymph # 2.6 K/uL (1.0-4.3) 12/11/16 07:05 Falls # 0.7 K/uL (0.0-0.8) 12/11/16 07:05 Eos # 0.5 K/uL (0.0-0.7) 12/11/16 07:05 Baso # 0.1 K/uL (0.0-0.2) 12/11/16 07:05 Differential Comment 12/10/16 07:28 PT 10.5 SECONDS (9.7-12.2) 12/08/16 18:14 INR 0.9 12/08/16 18:14 APTT 32 SECONDS (21-34) 12/08/16 18:14 Sodium 131 mmol/L (132-148) L 12/11/16 07:05 Potassium 4.1 mmol/L (3.6-5.2) 12/11/16 07:05 Chloride 96 mmol/L (98-107) L 12/11/16 07:05 Carbon Dioxide 28 mmol/L (22-30) 12/11/16 07:05 Anion Gap 11 (10-20) 12/11/16 07:05 BUN 21 mg/dL (9-20) H 12/11/16 07:05 Creatinine 2.3 MG/DL (0.8-1.5) H 12/11/16 07:05 Est GFR ( Amer) 33 12/11/16 07:05 Est GFR (Non-Af Amer) 27 12/11/16 07:05 POC Glucose (mg/dL) 253 mg/dL (65-110) H 12/11/16 16:29 Random Glucose 201 mg/dL (75-110) H 12/11/16 07:05 Hemoglobin A1c 8.9 % (4.2-6.5) H 12/08/16 21:00 Calcium 7.9 mg/dl (8.6-10.4) L 12/11/16 07:05 Phosphorus 3.2 mg/dL (2.5-4.5) 12/11/16 07:05 Magnesium 1.9 mg/dL (1.6-2.3) 12/11/16 07:05 Total Bilirubin 0.4 mg/dL (0.2-1.3) 12/11/16 07:05 AST 22 U/L (17-59) 12/11/16 07:05 ALT 28 U/L (21-72) 12/11/16 07:05 Alkaline Phosphatase 80 U/L (38-126) 12/11/16 07:05 Total Protein 5.7 g/dL (6.3-8.3) L 12/11/16 07:05 Albumin 3.0 g/dL (3.5-5.0) L 12/11/16 07:05 Globulin 2.7 gm/dL (2.2-3.9) 12/11/16 07:05 Albumin/Globulin Ratio 1.1 (1.0-2.1) 12/11/16 07:05 Blood Type A POSITIVE 12/09/16 20:16 Antibody Screen Negative 12/09/16 20:16 Attending/Attestation - Attestation I have personally seen and examined this patient.: Yes I have fully participated in the care of the patient.: Yes I have reviewed all pertinent clinical information, including history, physical exam and plan: Yes Notes (Text): 12/11/16 18:49 Patient stated that he had all of his home medications (Aspart 20 units SC AC Meals, Lantus 30 units SC QHS, Pregabalin 75 mg PO 2x/day, Levothyroxine 50 mcg PO 1x/day, Allopurinol 100 mg PO 1x/day). Rx provided for Hydralazine as above. Dilan Su D.O.
[2016-12-11 15:55] VITALS: BP 153/68; PULSE 101; TEMP 98.3; O2SAT 97
--- NOTE | 2016-12-14 17:39 | OP ---
PROCEDURE DATE: 12/10/2016 PREOPERATIVE DIAGNOSIS: Renal failure. POSTOPERATIVE DIAGNOSIS: Renal failure. PROCEDURE: Revision of AV fistula left arm with placement of hybrid shunt. SURGEON: Dr. Frank. ASSISTANCE: Dr. Etienne. ANESTHESIOLOGIST: Dr. Ellison. FINDINGS: The patient is an older middle aged man with renal insufficiency presently dialyzed by means of a catheter. The fistula had been created however noninvasive testing and other testing demonstrated there is a stenosis in the area adjacent to the elbow but not at the anastomosis. We were able to identify the area of stenosis. We were able to carry out the anastomosis to the arterial side as a rosado over this, beginning however in normal territory. DESCRIPTION OF PROCEDURE: The patient was given general anesthesia and intravenous antibiotics. The proximal portion of the old fistula was dissected out at the elbow. Using ultrasound guidance and a small skin incision, the basilic vein in the axilla was punctured using micropuncture technique. A guidewire was inserted centrally, a large sheath dilator was passed into this and the graft was then passed through the tunnel. After it was passed through the tunnel, the proper location was dilated with 9 mm balloon successfully. The graft was then anastomosed to the arterial side and again as a rosado over the stenotic portion and then this was placed into position. After this had been done we had a palpable pulse at the wrist. We had good flow through the fistula and procedure was terminated. The proximal portion of the previous arterialized vein was ligated, so that there is not any continued or double flow in the basilic vein. So that essence was revised of basilic vein fistula by placing hybrid shunt with arterial large being in the proximal portion of the fistula. The wounds were then closed with Monocryl and Vicryl sutures. *------* were applied to the skin. ESTIMATED BLOOD LOSS: Approximately 100 mL. Lenard Frank Jr., MD cc: Michele Cain MD
== END 2016-12-11 17:30 | disposition home or self-care (01) | DRG 252 ==
LOC: C.ER 16:33 → C.9OBSV 20:14 → C.6T 21:44
PROVIDERS: ADMIT Internal Medicine; ATTEND Internal Medicine
PROC: 5A1D60Z (ICD-10-PCS; 2016-12-09)
PROC: 05WY0JZ Revision of Synthetic Substitute in Upper Vein, Open Approach (ICD-10-PCS; principal; 2016-12-10 11:45)
DX: T82.510A Breakdown (mechanical) of surgically created arteriovenous fistula, initial encounter (principal); N18.6 End stage renal disease; I13.2 Hypertensive heart and chronic kidney disease with heart failure and with stage 5 chronic kidney disease, or end stage renal disease; E11.21 Type 2 diabetes mellitus with diabetic nephropathy; I50.9 Heart failure, unspecified; E11.65 Type 2 diabetes mellitus with hyperglycemia; E03.9 Hypothyroidism, unspecified; E11.22 Type 2 diabetes mellitus with diabetic chronic kidney disease; I25.10 Atherosclerotic heart disease of native coronary artery without angina pectoris; J44.9 Chronic obstructive pulmonary disease, unspecified; Y71.2 Prosthetic and other implants, materials and accessory cardiovascular devices associated with adverse incidents; M10.9 Gout, unspecified; I25.2 Old myocardial infarction; Z79.4 Long term (current) use of insulin; Z87.891 Personal history of nicotine dependence; Z99.2 Dependence on renal dialysis

== ENCOUNTER 2017-08-07 21:50 | Inpatient (IN) | payer MEDICARE ==
[2017-08-07 21:51] VITALS: BMI 25.6
--- NOTE | 2017-08-07 23:09 | C.PDOC ---
History Of Present Illness Patient gave a history of feeling SOB for about a month but more so tonite. Accompanying symptom of cough, no chest pain. He is on renal dialysis. Time Seen by Provider: 08/07/17 23:07 Chief Complaint (Nursing): Shortness Of Breath History Per: Patient History/Exam Limitations: no limitations Onset/Duration Of Symptoms: Days Current Symptoms Are (Timing): Still Present Exacerbating Factor(s): Exertion, Coughing Severity: Moderate Pain Scale Rating Of: 0 Associated Symptoms: Light-headedness, Other (cough). denies: Fever, Chills Recent travel outside of the [place]: No Additional History Per: Family Past Medical History Vital Signs: Last Vital Signs Temp 98 F 08/07/17 22:17 Pulse 94 H 08/08/17 01:16 Resp 22 08/08/17 01:16 BP 119/60 08/08/17 01:16 Pulse Ox 97 08/08/17 03:15 - Medical History PMH: Anemia, Asthma, CHF, COPD, Diabetes, HTN, Hypothyroidism, Peripheral Edema , End Stage Renal Disease, Chronic Kidney Disease - [facility] Procedures ASSISTANCE WITH RESPIRATORY VENTILATION, 24-96 HRS, CPAP (09/04/16) BYPASS L BRACH ART TO UP ARM VEIN W AUTOL VN, OPEN (09/04/16) INSERTION OF ENDOTRACHEAL AIRWAY INTO TRACHEA, VIA OPENING (09/04/16) INSERTION OF INFUSION DEV INTO SUP VENA CAVA, PERC APPROACH (09/04/16) MEASURE OF CARDIAC SAMPL & PRESSURE, L HEART, PERC APPROACH (09/04/16) PERFORMANCE OF URINARY FILTRATION, MULTIPLE (12/08/16) PLAIN RADIOGRAPHY OF LEFT HEART USING OTHER CONTRAST (09/04/16) PLAIN RADIOGRAPHY OF MULT COR ART USING OTH CONTRAST (09/04/16) RESPIRATORY VENTILATION, GREATER THAN 96 CONSECUTIVE HOURS (09/04/16) REVISION OF SYNTHETIC SUBSTITUTE IN UP VEIN, OPEN APPROACH (12/08/16) Family History: States: Unknown Family Hx - Social History Hx Alcohol Use: No Hx Substance Use: No - Immunization History Hx Tetanus Toxoid Vaccination: No Hx Influenza Vaccination: No Hx Pneumococcal Vaccination: No Physical Exam - Physical Exam Appears: No Acute Distress Skin: Normal Color, Warm, Dry Head: Atraumatic Eye(s): right: Other (periorbital ecchymosis) Nose: Normal Throat: Normal Neck: Normal Chest: Symmetrical, No Deformity, No Tenderness Cardiovascular: Rhythm Regular Respiratory: Rhonchi, Wheezing Gastrointestinal/Abdominal: Normal Exam Back: Normal Inspection Extremity: Normal ROM ED Course And Treatment - Laboratory Results Result Diagrams: 08/07/17 23:19 08/07/17 23:19 ECG: Interpreted By Me, Viewed By Me ECG Rhythm: Sinus Rhythm ECG Interpretation: No Acute Changes Interpretation Of ECG: NSR, Poor R- wave progression from V1 to V6, LAD, nonspc ST-T changes, abnormal tracings Rate From EC O2 Sat by Pulse Oximetry: 97 Pulse Ox Interpretation: Normal Disposition Discussed With DrShauna: Ayaz Meehan Doctor Will See Patient In The: Hospital Counseled Patient/Family Regarding: Diagnosis - Disposition Disposition: HOSPITALIZED Disposition Time: 03:13 Condition: STABLE Forms: [facility] (Malagasy) - POA Present On Arrival: None - Clinical Impression Clinical Impression: ESRD (end stage renal disease) on dialysis, Pleural effusion, CHF (congestive heart failure)
[2017-08-07 23:22] LABS: BASO # 0.1 K/uL (0.0-0.2); BASO % 1.3 % (0.0-2.0); EOS # 0.1 K/uL (0.0-0.7); HEMOGLOBIN 11.1 g/dL (12.0-18.0); MEAN CORPUSCULAR HGB CONC 34.7 g/dL (33.0-37.0); MONO # 1.1 K/uL (0.0-0.8); NEUT # 4.2 K/uL (1.8-7.0); RBC 3.31 Mil/uL (4.40-5.90); WHITE BLOOD COUNT 7.2 K/uL (4.8-10.8)
[2017-08-07 23:25] LABS: EOS % 0.9 % (0.0-4.0); LYMPH # 1.8 K/uL (1.0-4.3); LYMPH % 25.1 % (20.0-40.0); MEAN CELL VOLUME 96.8 fL (80.0-94.0); MEAN CORPUSCULAR HEMOGLOBIN 33.6 pg (27.0-31.0); MEAN PLATELET VOLUME 9.2 fL (7.2-11.7); MONO % 14.9 % (0.0-10.0); NEUT % 57.8 % (50.0-75.0); RED CELL DISTRIBUTION WIDTH 14.2 % (11.5-14.5)
[2017-08-07 23:33] LABS: INR 1.3; PROTHROMBIN TIME 14.8 SECONDS (9.7-12.2)
[2017-08-07 23:43] LABS: ALB/GLOB RATIO 1.2 (1.0-2.1); ALBUMIN 3.6 g/dL (3.5-5.0); CALCIUM 8.5 mg/dl (8.6-10.4)
[2017-08-07 23:55] LABS: TROPONIN I 0.349 ng/mL (0.00-0.120)
--- NOTE | 2017-08-08 00:21 | CT ---
EXAM: CT Chest Without Intravenous Contrast EXAM DATE/TIME: 08/07/2017 11:13 PM CLINICAL HISTORY: 82 years old, male; Signs and symptoms; Shortness of breath; Additional info: SOB TECHNIQUE: Axial computed tomography images of the chest without intravenous contrast. All CT scans at this facility use one or more dose reduction techniques, viz.: automated exposure control; ma/kV adjustment per patient size (including targeted exams where dose is matched to indication; i.e. head); or iterative reconstruction technique. Coronal and sagittal reformatted images were created and reviewed. COMPARISON: No relevant prior studies available. FINDINGS: Artifacts: Motion artifact degrades image quality. Lungs and pleural spaces: Trachea and main bronchi are patent. There is dependent atelectasis.There is a small right effusion. There is trace left effusion. There is dependent atelectasis at the lung bases. There is slightly greater airspace disease at the right base. There is minimal atelectasis/scarring in the lingula and middle lobes. Heart and vasculature: The heart is enlarged. There are coronary artery calcifications.Aorta and main pulmonary artery are normal in caliber.There are vascular calcifications. Thyroid: Thyroid is not optimally demonstrated. Bones/joints: Bony structures are osteopenic. There are degenerative changes. Upper abdomen: Gallbladder is collapsed. There is pericholecystic fluid/edema. Soft tissues: There is gynecomastia Mediastinum: Esophagus is unremarkable. There is a hiatal hernia. There are shotty mediastinal nodes. Ania are not optimally evaluated without contrast material. IMPRESSION: Cardiomegaly and atherosclerotic disease; small right effusion with trace left effusion minimal atelectatic changes greatest in the lung bases; dependent atelectasis; pericholecystic fluid suggest possible cholecystitis Additional nonemergent findings as described above.
--- NOTE | 2017-08-08 04:34 | CP.PCM.HP ---
<Roaln Burns - Last Filed: 08/08/17 06:39> History of Present Illness - History of Present Illness History of Present Illness: PGY1 H+P for Dr. Meehan Translation device used: Mari. R [id number] Patient is a 82 year old male with a past medical history with a past medical history of Asthma, COPD, CHF, DM, HTN, Hypothyroidism and ESRD on HD. Patient is presenting to the emergency room tonight due to shortness of breath over the past two months. The shortness of breath has been accompanied by a productive cough. The cough produces yellowish phlegm. He denies missing any dialysis treatments. The patient is speaking in full sentences and resting comfortably in bed stating he feels well except for the shortness of breath. Denies fevers, chills, nausea, vomiting, diarrhea, constipation, chest pain, abdominal pain, headache, lightheadedness, dizziness, numbness or tingling. PMD: Dr. Biggs PMH: Asthma, COPD, CHF, DM, HTN, Hypothyroidism and ESRD on HD PSH: fistula on left arm Family: non-contributory Social: denies tobacco, alcohol or illicit drug use Allergies: NKDA Present on Admission - Present on Admission Any Indicators Present on Admission: No Review of Systems - Review of Systems All systems: reviewed and no additional remarkable complaints except (as per HPI ) Past Patient History - Infectious Disease Hx of Infectious Diseases: None - Past Medical History & Family History Past Medical History?: Yes - Past Social History Smoking Status: Never Smoked - CARDIAC Hx Congestive Heart Failure: Yes Hx Hypertension: Yes Hx Peripheral Edema: Yes - PULMONARY Hx Asthma: Yes Hx Chronic Obstructive Pulmonary Disease (COPD): Yes - NEUROLOGICAL Hx Neurological Disorder: No - HEENT Hx HEENT Problems: Yes Hx Cataracts: Yes (with surgery done and IOL) - RENAL Hx Chronic Kidney Disease: Yes - ENDOCRINE/METABOLIC Hx Hypothyroidism: Yes - HEMATOLOGICAL/ONCOLOGICAL Hx Anemia: Yes - INTEGUMENTARY Hx Dermatological Problems: No - GASTROINTESTINAL Hx Gastrointestinal Disorders: No - GENITOURINARY/GYNECOLOGICAL Hx Genitourinary Disorders: No - PSYCHIATRIC Hx Substance Use: No - SURGICAL HISTORY Hx Surgeries: Yes Hx Vascular Access Device: Yes Other/Comment: L arm AV Fistula-2 months ago. Insertion of Perma Cath to R chest 2 months ago - ANESTHESIA Hx Anesthesia: Yes Hx Anesthesia Reactions: No Hx Malignant Hyperthermia: No Meds Allergies/Adverse Reactions: Allergies Allergy/AdvReac Type Severity Reaction Status Date / Time No Known Allergies Allergy Verified 12/08/16 16:55 Physical Exam - Constitutional Appears: No Acute Distress - Head Exam Head Exam: NORMOCEPHALIC - Eye Exam Eye Exam: EOMI. absent: Scleral icterus Additional comments: Ecchymosis around right eye. - ENT Exam ENT Exam: Mucous Membranes Moist - Respiratory Exam Respiratory Exam: Prolonged Expiratory Phase, Rales, Wheezes (throughout b/l). absent: Accessory Muscle Use, Respiratory Distress, Stridor - Cardiovascular Exam Cardiovascular Exam: REGULAR RHYTHM, +S1, +S2 - GI/Abdominal Exam GI & Abdominal Exam: Normal Bowel Sounds, Soft. absent: Distended, Firm, Guarding, Rigid, Tenderness - Extremities Exam Extremities exam: Positive for: pedal edema (2+ pitting edema b/l ), pedal pulses present. Negative for: calf tenderness - Neurological Exam Neurological exam: Alert, Oriented x3 - Psychiatric Exam Psychiatric exam: Normal Affect, Normal Mood - Skin Skin Exam: Dry, Warm Results - Vital Signs Recent Vital Signs: Last Vital Signs Temp 98 F 08/07/17 22:17 Pulse 94 H 08/08/17 01:16 Resp 22 08/08/17 01:16 BP 119/60 08/08/17 01:16 Pulse Ox 97 08/08/17 03:20 - Labs Result Diagrams: 08/07/17 23:19 08/07/17 23:19 Labs: Laboratory Results - last 24 hr 08/07/17 08/07/17 08/07/17 23:19 23:19 23:19 WBC 7.2 RBC 3.31 L Hgb 11.1 L Hct 32.0 L MCV 96.8 H D MCH 33.6 H MCHC 34.7 RDW 14.2 Plt Count 112 L MPV 9.2 Neut % (Auto) 57.8 Lymph % (Auto) 25.1 [place] % (Auto) 14.9 H Eos % (Auto) 0.9 Baso % (Auto) 1.3 Neut # (Auto) 4.2 Lymph # (Auto) 1.8 [place] # (Auto) 1.1 H Eos # (Auto) 0.1 Baso # (Auto) 0.1 Differential Comment PT 14.8 H INR 1.3 APTT 22 D-Dimer, Quantitative 1345 H Sodium 133 Potassium 3.9 Chloride 90 L Carbon Dioxide 27 Anion Gap 20 BUN 40 H Creatinine 4.3 H Est GFR ( Amer) 16 Est GFR (Non-Af Amer) 13 Random Glucose 197 H Calcium 8.5 L Total Bilirubin 0.9 AST 46 ALT 35 Alkaline Phosphatase 87 Troponin I 0.3490 H* NT-Pro-B Natriuret Pep 00190 H Total Protein 6.6 Albumin 3.6 Globulin 3.0 Albumin/Globulin Ratio 1.2 Assessment & Plan - Assessment and Plan (Free Text) Plan: Need to confirm home medications - in particular insulin regiment. Call patient' s son Nick Lindsey [phone]. COPD * Chest CTA - Cardiomegaly and atherosclerotic disease; small right effusion with trace left effusion minimal atelectatic changes greatest in the lung bases ; dependent atelectasis; pericholecystic fluid suggest possible cholecystitis. * Duonebs q6h PRN * Doxycycline 100mg PO BID * Pulmicort 0.25 INH Q12H * Prednisone 40mg PO daily hx of CHF * Nuclear Stress Test 12/09/16 - There is no stress induced perfusion defect or transient ischemic dilation noted. However there is a slight drop in EF with stress test. Abnormal stress test. * f/u ECHO * pro-BNP 11802 * Trop neg x1; f/u 2 more * Coreg 3.125mg PO daily * Crestor 5mg PO HS * Hydralazine 10mg PO QID ESRD on HD (MWF) * Nephrology consulted, Dr. Cain * Renvela 800 mg PO BIDAC * elevated troponin - believed to be 2/2 ESRD DM * ISS * Accuchecks * Lyrica 75mg PO BID Hypothryroidism * continue home medications: Synthroid 50mcg PO daily HTN * Coreg 3.125mg PO daily * Crestor 5mg PO HS Prophylactic Measures * GI PPX: Protonix 40mg PO daily * DVT PPX: Heparin 5000 SC Q12, SCDs Case discussed with Dr. Zoran Gongora Grant PGY1 <Ayaz Meehan P - Last Filed: 08/08/17 07:11> Results - Vital Signs Recent Vital Signs: Last Vital Signs Temp 98 F 08/07/17 22:17 Pulse 94 H 08/08/17 04:04 Resp 20 08/08/17 05:59 BP 116/64 08/08/17 04:04 Pulse Ox 97 08/08/17 04:04 - Labs Result Diagrams: 08/07/17 23:19 08/07/17 23:19 Labs: Laboratory Results - last 24 hr 08/07/17 08/07/17 08/07/17 23:19 23:19 23:19 WBC 7.2 RBC 3.31 L Hgb 11.1 L Hct 32.0 L MCV 96.8 H D MCH 33.6 H MCHC 34.7 RDW 14.2 Plt Count 112 L MPV 9.2 Neut % (Auto) 57.8 Lymph % (Auto) 25.1 [place] % (Auto) 14.9 H Eos % (Auto) 0.9 Baso % (Auto) 1.3 Neut # (Auto) 4.2 Lymph # (Auto) 1.8 [place] # (Auto) 1.1 H Eos # (Auto) 0.1 Baso # (Auto) 0.1 Differential Comment PT 14.8 H INR 1.3 APTT 22 D-Dimer, Quantitative 1345 H Sodium 133 Potassium 3.9 Chloride 90 L Carbon Dioxide 27 Anion Gap 20 BUN 40 H Creatinine 4.3 H Est GFR ( Amer) 16 Est GFR (Non-Af Amer) 13 Random Glucose 197 H Calcium 8.5 L Total Bilirubin 0.9 AST 46 ALT 35 Alkaline Phosphatase 87 Troponin I 0.3490 H* NT-Pro-B Natriuret Pep 61695 H Total Protein 6.6 Albumin 3.6 Globulin 3.0 Albumin/Globulin Ratio 1.2 Attending/Attestation - Attestation I have personally seen and examined this patient.: Yes I have fully participated in the care of the patient.: Yes I have reviewed all pertinent clinical information: Yes Notes (Text): 08/08/17 06:55 * SOB gradual for last 2 months, not improving associated with cough, pt on exam has exp wheezing, not in distress, not orthopnic, euvolemic, very small pl effusion, but also has h/o left main and other Coronary disease, with cmg. Clinically upon ct and exam it's more reactive airway then due to cardiac asthma * ESRD on hd * DM on insulin dose need to be continued * Slight elevated trop without acute ekg changes/cp in presence of ESRD likely due to poor clearence of trop but need serial eval to confirm Plan * PRN nebs, pulmicort, oral prednisone, oral doxy * Serial enzymes, if significant rise then need therapeutic heparin * Echo * Plavix, betablocker, asa, prophylactic heparin, crestor, * HD as scheduled * Confirm home meds again, andre insulin, currently on sliding scale. * See orders for detail.
[2017-08-08] MEDS: Levothyroxine 50 MCG TAB PO SCH (06:54)
[2017-08-08] MEDS ORDERED: (Novolog) Insulin Aspart, Recombinant 100 u/ml 10 ml vial SC SCH (07:30)
[2017-08-08] MEDS: Albuterol-Ipratrop 3 mg / 0.5 (3 ml) UD INH SCH ×3 (07:35→19:32)
[2017-08-08] MEDS: Budesonide 0.5 mg/2 ml Inhal Susp UD INH SCH ×2 (07:35→19:33)
[2017-08-08] MEDS ORDERED: Budesonide 0.25 mg/2 ml Inhal Susp UD INH SCH (08:00)
[2017-08-08] MEDS: (Novolin R) Insulin Human Regular 100 units/ml vial SC SCH ×4 (08:20→22:35)
[2017-08-08] MEDS: Pantoprazole 40 mg EC Tab PO SCH (09:26)
--- NOTE | 2017-08-08 11:45 | CP.PCM.PN ---
Subjective - Date & Time of Evaluation Date of Evaluation: 08/08/17 Time of Evaluation: 11:30 - Subjective Subjective: Patient was seen and examined by me He was speaking in full sentences. From my basic [place] and his basic Hungarian we talked. He explained that he is having a lot of coughing and wheezing. He denied fever and denied chills He denied palpitations He denied phelgm production He denied dizziness and denied headache He says he is walking ok for now On exam he has bilateral wheezing. Objective - Vital Signs/Intake and Output Vital Signs (last 24 hours): Temp Pulse Resp BP Pulse Ox 97.6 F 84 20 116/66 100 08/08/17 08:00 08/08/17 08:00 08/08/17 08:00 08/08/17 09:26 08/08/17 08:00 - Medications Medications: Current Medications Albuterol/Ipratropium (Duoneb 3 Mg/0.5 Mg (3 Ml) Ud) 3 ml INH RQ6 [facility] Last Admin: 08/08/17 07:35 Dose: 3 ml Aspirin (Ecotrin) 81 mg PO DAILY [facility] Last Admin: 08/08/17 09:26 Dose: 81 mg Budesonide (Pulmicort Respules) 0.5 mg INH RQ12 [facility] Last Admin: 08/08/17 07:35 Dose: 0.5 mg Clopidogrel Bisulfate (Plavix) 75 mg PO DAILY [facility] Last Admin: 08/08/17 09:26 Dose: 75 mg Doxycycline Hyclate (Doryx) 100 mg PO Q12H [facility] PRN Reason: Protocol Last Admin: 08/08/17 08:25 Dose: 100 mg Heparin Sodium (Porcine) (Heparin) 5,000 units SC Q12 [facility] Last Admin: 08/08/17 09:25 Dose: 5,000 units Hydralazine HCl (Apresoline) 10 mg PO QID [facility] Last Admin: 08/08/17 10:50 Dose: 10 mg Insulin Human Regular (Novolin R) 0 unit SC ACHS [facility] PRN Reason: Protocol Last Admin: 08/08/17 08:20 Dose: Not Given Levothyroxine Sodium (Synthroid) 50 mcg PO DAILY@0630 [facility] Last Admin: 08/08/17 06:54 Dose: 50 mcg Metoprolol Tartrate (Lopressor) 25 mg PO BID [facility] Last Admin: 08/08/17 09:26 Dose: 25 mg Pantoprazole Sodium (Protonix Ec Tab) 40 mg PO DAILY [facility] Last Admin: 08/08/17 09:26 Dose: 40 mg Prednisone (Prednisone Tab) 40 mg PO DAILY [facility] Last Admin: 08/08/17 09:26 Dose: 40 mg Pregabalin (Lyrica) 75 mg PO BID [facility] Last Admin: 08/08/17 09:26 Dose: 75 mg Rosuvastatin Calcium (Crestor) 5 mg PO HS [facility] Sevelamer Carbonate (Renvela) 800 mg PO BIDAC [facility] Last Admin: 08/08/17 06:54 Dose: 800 mg - Labs Labs: 08/07/17 23:19 08/07/17 23:19 PT 14.8 SECONDS (9.7-12.2) H 08/07/17 23:19 INR 1.3 08/07/17 23:19 APTT 22 SECONDS (21-34) 08/07/17 23:19 - Constitutional Appears: No Acute Distress, Older Than Stated Age - Head Exam Head Exam: NORMAL INSPECTION - Eye Exam Eye Exam: EOMI, Normal appearance - ENT Exam ENT Exam: Mucous Membranes Moist - Respiratory Exam Respiratory Exam: Decreased Breath Sounds, Wheezes Additional comments: Speaking in full sentences - Cardiovascular Exam Cardiovascular Exam: REGULAR RHYTHM - GI/Abdominal Exam GI & Abdominal Exam: Soft. absent: Guarding, Rigid, Tenderness - Extremities Exam Additional comments: left arm has palpable thrill and auscultation thrill - Neurological Exam Neurological Exam: Alert, Awake, Oriented x3 - Psychiatric Exam Psychiatric exam: Normal Affect, Normal Mood - Skin Skin Exam: Normal Color, Warm Assessment and Plan - Assessment and Plan (Free Text) Assessment: Need to confirm home medications - in particular insulin regiment. Call patient' s son Nick Lindsey [phone]. COPD 08/08: Will repeat CXRAY tommorow, also change PO prednisone to IV solumedrol 40 IV Q 8 hrs. * Chest CTA - Cardiomegaly and atherosclerotic disease; small right effusion with trace left effusion minimal atelectatic changes greatest in the lung bases ; dependent atelectasis; pericholecystic fluid suggest possible cholecystitis. * Duonebs q6h PRN * Doxycycline 100mg PO BID * Pulmicort 0.25 INH Q12H hx of CHF 08/08: We are pending new echo. The cardiac enzymes borderline elevated, probably due to ESRD. Elevated pro BNP, from ESRD. If cardiac markers become higher then will need cardiology eval. * Nuclear Stress Test 12/09/16 - There is no stress induced perfusion defect or transient ischemic dilation noted. However there is a slight drop in EF with stress test. Abnormal stress test. * f/u ECHO * pro-BNP 34169 * Trop neg x1; f/u 2 more * Coreg 3.125mg PO daily * Crestor 5mg PO HS * Hydralazine 10mg PO QID ESRD on HD ([facility]) * Nephrology consulted, Dr. Cain * Renvela 800 mg PO BIDAC * elevated troponin - believed to be 2/2 ESRD DM * ISS * Accuchecks * Lyrica 75mg PO BID Hypothryroidism * continue home medications: Synthroid 50mcg PO daily HTN * Coreg 3.125mg PO daily * Crestor 5mg PO HS Prophylactic Measures * GI PPX: Protonix 40mg PO daily * DVT PPX: Heparin 5000 SC Q12, SCDs
[2017-08-08] MEDS: MethylPREDNISolone 40 mg Vial IVP SCH ×2 (13:57→20:20)
--- NOTE | 2017-08-08 14:53 | RAD ---
HISTORY: coughing, wheezing COMPARISON: Chest x-ray performed 12/08/16 TECHNIQUE: Chest, one view. FINDINGS: Examination limited by habitus. LUNGS: Mild central vascular/ pulmonary venous congestion. No focal consolidation. Please note that chest x-ray has limited sensitivity for the detection of pulmonary masses. PLEURA: No significant pleural effusion identified. No definite pneumothorax . CARDIOVASCULAR: Cardiomegaly. Dense atherosclerotic calcifications of the aortic knob. Acromioclavicular arthropathy. OSSEOUS STRUCTURES: Degenerative changes. VISUALIZED UPPER ABDOMEN: Mild elevation of the right hemidiaphragm. OTHER FINDINGS: None. IMPRESSION: Cardiomegaly. Dense coronary artery calcifications. Mild central vascular/ pulmonary venous congestion.
[2017-08-08] MEDS ORDERED: (Lantus) Insulin Glargine, Recombinant SC SCH (22:00)
[2017-08-09] MEDS: Albuterol-Ipratrop 3 mg / 0.5 (3 ml) UD INH SCH ×4 (01:36→19:38)
[2017-08-09] MEDS: MethylPREDNISolone 40 mg Vial IVP SCH ×2 (03:18→12:15)
[2017-08-09] MEDS: Levothyroxine 50 MCG TAB PO SCH (05:32)
[2017-08-09] MEDS: (Novolin R) Insulin Human Regular 100 units/ml vial SC SCH (06:42)
[2017-08-09] MEDS: Budesonide 0.5 mg/2 ml Inhal Susp UD INH SCH ×2 (07:43→19:38)
[2017-08-09 08:25] LABS: BASO % 0.2 % (0.0-2.0); HEMOGLOBIN 11.6 g/dL (12.0-18.0); LYMPH # 0.6 K/uL (1.0-4.3); LYMPH % 16.7 % (20.0-40.0); MEAN CELL VOLUME 97.2 fL (80.0-94.0); MEAN CORPUSCULAR HEMOGLOBIN 33.3 pg (27.0-31.0); MEAN CORPUSCULAR HGB CONC 34.2 g/dL (33.0-37.0); MEAN PLATELET VOLUME 9.7 fL (7.2-11.7); MONO # 0.2 K/uL (0.0-0.8); MONO % 4.5 % (0.0-10.0); NEUT # 2.9 K/uL (1.8-7.0); NEUT % 78.6 % (50.0-75.0); RBC 3.48 Mil/uL (4.40-5.90); RED CELL DISTRIBUTION WIDTH 14.4 % (11.5-14.5); WHITE BLOOD COUNT 3.7 K/uL (4.8-10.8)
--- NOTE | 2017-08-09 08:25 | CP.PCM.PN ---
<RetaKiah - Last Filed: 08/09/17 12:28> Subjective - Date & Time of Evaluation Date of Evaluation: 08/09/17 Time of Evaluation: 08:16 - Subjective Subjective: Progress Note Patient seen and examined at bedside. Patient says his voice is still hoarse. Patient says he's been coughing with phlegm for a long time. Patient mentions concern that he gets dialysis Wednesday, Wednesday, Wednesday. Patient denies fever, chills, nausea, vomiting Objective - Vital Signs/Intake and Output Vital Signs (last 24 hours): Temp Pulse Resp BP Pulse Ox 97.6 F 78 20 111/73 100 08/09/17 00:00 08/09/17 01:00 08/09/17 00:00 08/09/17 00:00 08/09/17 00:00 Intake and Output: 08/09/17 08/09/17 06:59 18:59 Intake Total 500 Balance 500 - Medications Medications: Current Medications Albuterol/Ipratropium (Duoneb 3 Mg/0.5 Mg (3 Ml) Ud) 3 ml INH RQ6 [facility] Last Admin: 08/09/17 01:36 Dose: Not Given Aspirin (Ecotrin) 81 mg PO DAILY [facility] Last Admin: 08/08/17 09:26 Dose: 81 mg Budesonide (Pulmicort Respules) 0.5 mg INH RQ12 [facility] Last Admin: 08/08/17 19:33 Dose: Not Given Clopidogrel Bisulfate (Plavix) 75 mg PO DAILY [facility] Last Admin: 08/08/17 09:26 Dose: 75 mg Doxycycline Hyclate (Doryx) 100 mg PO Q12H [facility] PRN Reason: Protocol Last Admin: 08/09/17 05:32 Dose: 100 mg Heparin Sodium (Porcine) (Heparin) 5,000 units SC Q12 [facility] Last Admin: 08/08/17 22:35 Dose: 5,000 units Hydralazine HCl (Apresoline) 10 mg PO QID [facility] Last Admin: 08/08/17 22:35 Dose: 10 mg Insulin Human Regular (Novolin R) 0 unit SC ACHS [facility] PRN Reason: Protocol Last Admin: 08/09/17 06:42 Dose: 10 unit Levothyroxine Sodium (Synthroid) 50 mcg PO DAILY@0630 [facility] Last Admin: 08/09/17 05:32 Dose: 50 mcg Methylprednisolone (Solu-Medrol) 40 mg IVP Q8H [facility] Last Admin: 08/09/17 03:18 Dose: 40 mg Metoprolol Tartrate (Lopressor) 25 mg PO BID [facility] Last Admin: 08/08/17 17:40 Dose: 25 mg Pantoprazole Sodium (Protonix Ec Tab) 40 mg PO DAILY [facility] Last Admin: 08/08/17 09:26 Dose: 40 mg Pregabalin (Lyrica) 75 mg PO BID [facility] Last Admin: 08/08/17 17:40 Dose: 75 mg Rosuvastatin Calcium (Crestor) 5 mg PO HS [facility] Last Admin: 08/08/17 22:35 Dose: 5 mg Sevelamer Carbonate (Renvela) 800 mg PO BIDAC [facility] Last Admin: 08/08/17 17:41 Dose: 800 mg - Labs Labs: 08/07/17 23:19 08/07/17 23:19 PT 14.8 SECONDS (9.7-12.2) H 08/07/17 23:19 INR 1.3 08/07/17 23:19 APTT 22 SECONDS (21-34) 08/07/17 23:19 - Constitutional Appears: Non-toxic, No Acute Distress - Head Exam Head Exam: ATRAUMATIC, NORMAL INSPECTION, NORMOCEPHALIC - Eye Exam Eye Exam: EOMI, Normal appearance Pupil Exam: NORMAL ACCOMODATION - ENT Exam ENT Exam: Mucous Membranes Dry - Neck Exam Neck Exam: Full ROM, Normal Inspection - Respiratory Exam Respiratory Exam: Clear to Ausculation Bilateral, NORMAL BREATHING PATTERN. absent: Wheezes, Respiratory Distress, Stridor - Cardiovascular Exam Cardiovascular Exam: REGULAR RHYTHM, +S1, +S2 - GI/Abdominal Exam GI & Abdominal Exam: Soft, Normal Bowel Sounds. absent: Tenderness, Hyperactive Bowel Sounds, Hypoactive Bowel Sounds - Extremities Exam Extremities Exam: Full ROM, Normal Inspection. absent: Pedal Edema - Back Exam Back Exam: Full ROM, NORMAL INSPECTION Additional comments: left avf, bruit auscultated, pulsation strong - Neurological Exam Neurological Exam: Alert, Awake, CN II-XII Intact - Psychiatric Exam Psychiatric exam: Normal Affect, Normal Mood - Skin Skin Exam: Dry, Intact, Normal Color, Warm Assessment and Plan - Assessment and Plan (Free Text) Assessment: 82M with past medical history of Asthma, copd, chf, dm, htn, hypothyroidsism and ESRD on HD via avf presents with shortness of breath, hoarse voice x 2 months COPD * Chest CTA - Cardiomegaly and atherosclerotic disease; small right effusion with trace left effusion minimal atelectatic changes greatest in the lung bases ; dependent atelectasis; pericholecystic fluid suggest possible cholecystitis. * Duonebs q6h PRN * Doxycycline 100mg PO BID * Pulmicort 0.25 INH Q12H * Prednisone 40mg PO daily hx of CHF * Nuclear Stress Test 12/09/16 - There is no stress induced perfusion defect or transient ischemic dilation noted. However there is a slight drop in EF with stress test. Abnormal stress test. * f/u ECHO * pro-BNP 91416 * Trop neg x1; f/u 2 more * Coreg 3.125mg PO daily * Crestor 5mg PO HS * Hydralazine 10mg PO QID * Cardio: Dr. Garcai ESRD on HD ([facility]) * Nephrology consulted, Dr. Cain * Renvela 800 mg PO BIDAC * elevated troponin - believed to be 2/2 ESRD DM * Lyrica 75mg PO BID * patient takes 8u Lispro at home before each meal and 20u Lantus BID. Hypothryroidism * continue home medications: Synthroid 50mcg PO daily HTN * Coreg 3.125mg PO daily * Crestor 5mg PO HS Prophylactic Measures * GI PPX: Protonix 40mg PO daily * DVT PPX: Heparin 5000 SC Q12, SCDs Dispo: Patient's son Nick Lindsey [phone]. Kiah Eng <Nurys Justice - Last Filed: 08/11/17 18:12> Objective - Vital Signs/Intake and Output Vital Signs (last 24 hours): Temp Pulse Resp BP Pulse Ox 97.8 F 80 20 112/62 98 08/09/17 18:06 08/09/17 18:06 08/09/17 18:06 08/09/17 18:06 08/09/17 18:06 Intake and Output: 08/09/17 08/09/17 06:59 18:59 Intake Total 500 300 Balance 500 300 - Medications Medications: Current Medications Albuterol/Ipratropium (Duoneb 3 Mg/0.5 Mg (3 Ml) Ud) 3 ml INH RQ6 [facility] Last Admin: 08/09/17 14:00 Dose: 3 ml Aspirin (Ecotrin) 81 mg PO DAILY [facility] Last Admin: 08/09/17 11:00 Dose: 81 mg Budesonide (Pulmicort Respules) 0.5 mg INH RQ12 [facility] Last Admin: 08/09/17 07:43 Dose: 0.5 mg Clopidogrel Bisulfate (Plavix) 75 mg PO DAILY [facility] Last Admin: 08/09/17 11:00 Dose: 75 mg Doxycycline Hyclate (Doryx) 100 mg PO Q12H [facility] PRN Reason: Protocol Last Admin: 08/09/17 05:32 Dose: 100 mg Heparin Sodium (Porcine) (Heparin) 5,000 units SC Q12 [facility] Last Admin: 08/09/17 11:00 Dose: 5,000 units Hydralazine HCl (Apresoline) 10 mg PO QID [facility] Last Admin: 08/09/17 14:50 Dose: Not Given Insulin Aspart (Novolog) 0 unit SC [facility] PRN Reason: Protocol Insulin Glargine (Lantus) 30 unit SC DAILY [facility] Levothyroxine Sodium (Synthroid) 50 mcg PO DAILY@0630 [facility] Last Admin: 08/09/17 05:32 Dose: 50 mcg Methylprednisolone (Solu-Medrol) 40 mg IVP DAILY [facility] Metoprolol Tartrate (Lopressor) 25 mg PO BID [facility] Last Admin: 08/09/17 11:00 Dose: 25 mg Pantoprazole Sodium (Protonix Ec Tab) 40 mg PO DAILY [facility] Last Admin: 08/09/17 11:00 Dose: 40 mg Pregabalin (Lyrica) 75 mg PO DAILY [facility] Rosuvastatin Calcium (Crestor) 5 mg PO HS [facility] Last Admin: 08/08/17 22:35 Dose: 5 mg Sevelamer Carbonate (Renvela) 800 mg PO BIDAC [facility] Last Admin: 08/09/17 09:33 Dose: 800 mg - Labs Labs: 08/09/17 08:17 08/09/17 08:17 PT 14.8 SECONDS (9.7-12.2) H 08/07/17 23:19 INR 1.3 08/07/17 23:19 APTT 22 SECONDS (21-34) 08/07/17 23:19 Attending/Attestation - Attestation I have personally seen and examined this patient.: Yes I have fully participated in the care of the patient.: Yes I have reviewed all pertinent clinical information, including history, physical exam and plan: Yes Notes (Text): Patient was seen and examined Denies chest pain,has cough,no sob discussed with the resident continue his current meds.Get his home insulin dose Increase insulin.Reduce the dose of steroid Get cardiology consult from Dr Garcia I agree with the resident's documentation of the assessment and the plan
[2017-08-09 08:53] LABS: ALB/GLOB RATIO 1.3 (1.0-2.1); ALBUMIN 3.5 g/dL (3.5-5.0)
[2017-08-09] MEDS ORDERED: (Novolin R) Insulin Human Regular 100 units/ml vial SC SCH (09:47)
[2017-08-09] MEDS: Pantoprazole 40 mg EC Tab PO SCH (11:00)
--- NOTE | 2017-08-09 12:31 | CP.PCM.CON ---
History of Present Illness - History of Present Illness History of Present Illness: Patient is a 82 year old male with a past medical history with a past medical history of Asthma, COPD, CHF, DM, HTN, Hypothyroidism and ESRD on HD. Patient is presenting to the emergency room tonight due to shortness of breath over the past two months. The shortness of breath has been accompanied by a productive cough. The cough produces yellowish phlegm. He denies missing any dialysis treatments. The patient is speaking in full sentences and resting comfortably in bed stating he feels well except for the shortness of breath. Denies fevers, chills, nausea, vomiting, diarrhea, constipation, chest pain, abdominal pain, headache, lightheadedness, dizziness, numbness or tingling. CXR consistent with CHF DM uncontrolled PMD: Dr. Biggs PMH: Asthma, COPD, CHF, DM, HTN, Hypothyroidism and ESRD on HD PSH: fistula on left arm Family: non-contributory Social: denies tobacco, alcohol or illicit drug use Review of Systems - Review of Systems All systems: reviewed and no additional remarkable complaints except - Constitutional Constitutional: Fatigue, Malaise - EENT Eyes: absent: As Per HPI, Blind Spots, Blurred Vision, Change in Vision, Decreased Night Vision, Diplopia, Discharge, Dry Eye, Exophthalmos, Floaters, Irritation, Itchy Eyes, Loss of Peripheral Vision, Pain, Photophobia, Requires Corrective Lenses, Sees Flashes, Spots in Vision, Tunnel Vision, Other Visual Disturbances, Loss of Vision, Other Ears: absent: As Per HPI, Decreased Hearing, Ear Discharge, Ear Pain, Tinnitus, Abnormal Hearing, Disequilibrium, Dizziness, Other Nose/Mouth/Throat: absent: As Per HPI, Epistaxis, Nasal Congestion, Nasal Discharge, Nasal Obstruction, Nasal Trauma, Nose Pain, Post Nasal Drip, Sinus Pain, Sinus Pressure, Bleeding Gums, Change in Voice, Dental Pain, Dry Mouth, Dysphagia, Halitosis, Hoarsness, Lip Swelling, Mouth Lesions, Mouth Pain, Odynophagia, Sore Throat, Throat Swelling, Tongue Swelling, Facial Pain, Neck Pain, Neck Mass, Other - Cardiovascular Cardiovascular: Dyspnea on Exertion, Palpitations - Respiratory Respiratory: Cough, Dyspnea on Exertion - Gastrointestinal Gastrointestinal: absent: As Per HPI, Abdominal Pain, Belching, Bloating, Change in Bowel Habits, Change in Stool Character, Coffee Ground Emesis, Constipation, Cramping, Diarrhea, Dyspepsia, Dysphagia, Early Satiety, Excessive Flatus, Fecal Incontinence, Heartburn, Hematemesis, Hematochezia, Loose Stools, Melena, Nausea, Odynophagia, Temesmus, Vomiting, Other - Genitourinary Genitourinary: As Per HPI - Musculoskeletal Musculoskeletal: Muscle Cramps, Muscle Weakness - Neurological Neurological: Restless Legs, Weakness - Endocrine Endocrine: As Per HPI Past Patient History - Infectious Disease Hx of Infectious Diseases: None - Past Medical History & Family History Past Medical History?: Yes - Past Social History Smoking Status: Never Smoked Chewing Tobacco Use: No Cigar Use: No Alcohol: None Drugs: Denies Home Situation {Lives}: With Family - CARDIAC Hx Congestive Heart Failure: Yes Hx Hypertension: Yes Hx Peripheral Edema: Yes - PULMONARY Hx Asthma: Yes Hx Chronic Obstructive Pulmonary Disease (COPD): Yes - NEUROLOGICAL Hx Neurological Disorder: No - HEENT Hx HEENT Problems: Yes Hx Cataracts: Yes (with surgery done and IOL) - RENAL Hx Chronic Kidney Disease: Yes - ENDOCRINE/METABOLIC Hx Hypothyroidism: Yes - HEMATOLOGICAL/ONCOLOGICAL Hx Anemia: Yes - INTEGUMENTARY Hx Dermatological Problems: No - GASTROINTESTINAL Hx Gastrointestinal Disorders: No - GENITOURINARY/GYNECOLOGICAL Hx Genitourinary Disorders: No - PSYCHIATRIC Hx Substance Use: No - SURGICAL HISTORY Hx Surgeries: Yes Hx Vascular Access Device: Yes Other/Comment: L arm AV Fistula-2 months ago. Insertion of Perma Cath to R chest 2 months ago - ANESTHESIA Hx Anesthesia: Yes Hx Anesthesia Reactions: No Hx Malignant Hyperthermia: No Meds Allergies/Adverse Reactions: Allergies Allergy/AdvReac Type Severity Reaction Status Date / Time No Known Allergies Allergy Verified 12/08/16 16:55 - Medications Medications: Current Medications Albuterol/Ipratropium (Duoneb 3 Mg/0.5 Mg (3 Ml) Ud) 3 ml INH RQ6 [facility] Last Admin: 08/09/17 07:43 Dose: 3 ml Aspirin (Ecotrin) 81 mg PO DAILY [facility] Last Admin: 08/09/17 11:00 Dose: 81 mg Budesonide (Pulmicort Respules) 0.5 mg INH RQ12 [facility] Last Admin: 08/09/17 07:43 Dose: 0.5 mg Clopidogrel Bisulfate (Plavix) 75 mg PO DAILY [facility] Last Admin: 08/09/17 11:00 Dose: 75 mg Doxycycline Hyclate (Doryx) 100 mg PO Q12H [facility] PRN Reason: Protocol Last Admin: 08/09/17 05:32 Dose: 100 mg Heparin Sodium (Porcine) (Heparin) 5,000 units SC Q12 [facility] Last Admin: 08/09/17 11:00 Dose: 5,000 units Hydralazine HCl (Apresoline) 10 mg PO QID [facility] Last Admin: 08/09/17 11:00 Dose: 10 mg Insulin Aspart (Novolog) 8 unit SC ACHS [facility] Insulin Glargine (Lantus) 30 unit SC DAILY [facility] Levothyroxine Sodium (Synthroid) 50 mcg PO DAILY@0630 [facility] Last Admin: 08/09/17 05:32 Dose: 50 mcg Methylprednisolone (Solu-Medrol) 40 mg IVP Q8H [facility] Last Admin: 08/09/17 12:15 Dose: 40 mg Metoprolol Tartrate (Lopressor) 25 mg PO BID [facility] Last Admin: 08/09/17 11:00 Dose: 25 mg Pantoprazole Sodium (Protonix Ec Tab) 40 mg PO DAILY [facility] Last Admin: 08/09/17 11:00 Dose: 40 mg Pregabalin (Lyrica) 75 mg PO BID [facility] Last Admin: 08/09/17 11:00 Dose: 75 mg Rosuvastatin Calcium (Crestor) 5 mg PO HS [facility] Last Admin: 08/08/17 22:35 Dose: 5 mg Sevelamer Carbonate (Renvela) 800 mg PO BIDAC [facility] Last Admin: 08/09/17 09:33 Dose: 800 mg Physical Exam - Constitutional Appears: Chronically Ill - Head Exam Head Exam: ATRAUMATIC, NORMAL INSPECTION - Eye Exam Eye Exam: EOMI, Normal appearance - Neck Exam Neck exam: Positive for: Normal Inspection. Negative for: Tenderness - Respiratory Exam Respiratory Exam: Rales, Respiratory Distress - Cardiovascular Exam Cardiovascular Exam: REGULAR RHYTHM, +S1 - GI/Abdominal Exam GI & Abdominal Exam: Soft. absent: Tenderness - Extremities Exam Extremities exam: Positive for: normal inspection. Negative for: tenderness - Neurological Exam Neurological exam: CN II-XII Intact, Oriented x3 - Skin Skin Exam: Dry, Warm Results - Vital Signs Recent Vital Signs: Last Vital Signs Temp 97.1 F L 08/09/17 08:30 Pulse 84 08/09/17 10:59 Resp 20 08/09/17 08:30 BP 128/74 08/09/17 11:00 Pulse Ox 97 08/09/17 08:30 - Labs Result Diagrams: 08/09/17 08:17 08/09/17 08:17 Labs: Laboratory Results - last 24 hr 08/08/17 08/08/17 08/08/17 17:06 19:45 21:43 WBC RBC Hgb Hct MCV MCH MCHC RDW Plt Count MPV Neut % (Auto) Lymph % (Auto) [place] % (Auto) Eos % (Auto) Baso % (Auto) Neut # (Auto) Lymph # (Auto) [place] # (Auto) Eos # (Auto) Baso # (Auto) Sodium Potassium Chloride Carbon Dioxide Anion Gap BUN Creatinine Est GFR ( Amer) Est GFR (Non-Af Amer) POC Glucose (mg/dL) 262 H 374 H Random Glucose Calcium Total Bilirubin AST ALT Alkaline Phosphatase Troponin I 0.2620 H* Total Protein Albumin Globulin Albumin/Globulin Ratio 08/09/17 08/09/17 08/09/17 06:35 08:17 08:17 WBC 3.7 L RBC 3.48 L Hgb 11.6 L Hct 33.8 L MCV 97.2 H MCH 33.3 H MCHC 34.2 RDW 14.4 Plt Count 103 L MPV 9.7 Neut % (Auto) 78.6 H Lymph % (Auto) 16.7 L [place] % (Auto) 4.5 Eos % (Auto) 0.0 Baso % (Auto) 0.2 Neut # (Auto) 2.9 Lymph # (Auto) 0.6 L [place] # (Auto) 0.2 Eos # (Auto) 0.0 Baso # (Auto) 0.0 Sodium 129 L Potassium 5.0 Chloride 85 L Carbon Dioxide 22 Anion Gap 26 H BUN 64 H Creatinine 6.4 H Est GFR ( Amer) 10 Est GFR (Non-Af Amer) 8 POC Glucose (mg/dL) 496 H* Random Glucose 521 H* D Calcium 8.0 L Total Bilirubin 1.0 AST 31 ALT 45 Alkaline Phosphatase 101 Troponin I Total Protein 6.3 Albumin 3.5 Globulin 2.8 Albumin/Globulin Ratio 1.3 08/09/17 11:26 WBC RBC Hgb Hct MCV MCH MCHC RDW Plt Count MPV Neut % (Auto) Lymph % (Auto) [place] % (Auto) Eos % (Auto) Baso % (Auto) Neut # (Auto) Lymph # (Auto) [place] # (Auto) Eos # (Auto) Baso # (Auto) Sodium Potassium Chloride Carbon Dioxide Anion Gap BUN Creatinine Est GFR ( Amer) Est GFR (Non-Af Amer) POC Glucose (mg/dL) 481 H* Random Glucose Calcium Total Bilirubin AST ALT Alkaline Phosphatase Troponin I Total Protein Albumin Globulin Albumin/Globulin Ratio Assessment & Plan - Assessment and Plan (Free Text) Assessment: Uncontrolled DM CHF ESRD COPD exacerbation Plan: Dialysis now with adequate UF DM management COPD meds as needed
[2017-08-09] MEDS ORDERED: (Novolog) Insulin Aspart, Recombinant 100 u/ml 10 ml vial SC SCH ×2 (16:30)
[2017-08-09] MEDS: (Novolog) Insulin Aspart, Recombinant 100 u/ml 10 ml vial SC SCH ×2 (18:51→21:50)
--- NOTE | 2017-08-09 20:20 | CARD ---
APPROVED REPORT EKG Measurement Heart [id number] <Conclusion> Normal sinus rhythm with PVCs Left axis deviation Nonspecific ST and T wave abnormality Prolonged QT Abnormal ECG
--- NOTE | 2017-08-09 20:49 | CARD ---
APPROVED REPORT EXAM: Two-dimensional and M-mode echocardiogram with Doppler and color Doppler. Other Information Quality : GoodRhythm : INDICATION Pleural Effusion Syncope Congestive Heart Failure ESRD RISK FACTORS Hypertension Diabetes 2D DIMENSIONS IVSd1.0 (0.7-1.1cm)LVDd4.9 (3.9-5.9cm) PWd1.1 (0.7-1.1cm)LVDs4.0 (2.5-4.0cm) FS (%) 18.0 %LVEF (%)37.4 (>50%) M-Mode DIMENSIONS Left Atrium (MM)4.07 (2.5-4.0cm)Aortic Root2.90 (2.2-3.7cm) Aortic Cusp Exc.1.72 (1.5-2.0cm) Aortic Valve AI P 1/2 [id number] Mitral Valve MV E Eoceihgy566.3cm/sMV A Ryvfbsoq06.4cm/sE/A ratio1.9 TDI E/Lateral E'0.0E/Medial E'0.0 Tricuspid Valve TR Peak Shayofwj643fm/sTR Peak Gr.[id number] LEFT VENTRICLE The Left Ventricle is mildly dilated. There is borderline concentric left ventricular hypertrophy. Left ventricle systolic function is moderately to severely impaired. The Ejection Fraction is 35-40%. There is global hypokinesis of the left ventricle. Transmitral Doppler flow pattern is Grade II-pseudonormal filling dynamics. There is no ventricular septal defect visualized. RIGHT VENTRICLE The right ventricle is normal size. The right ventricular systolic function is normal. ATRIA The left atrium is moderately dilated. The right atrium is mildly dilated. AORTIC VALVE The aortic valve is mildly to moderately sclerotic. The aortic valve is tri-cuspid. There is mild aortic regurgitation. There is no aortic valvular stenosis. MITRAL VALVE Mitral annular calcification is moderate. There is no evidence of mitral valve prolapse. Mitral regurgitation is moderate.ERO 0.5 cm TRICUSPID VALVE The tricuspid valve is normal in structure. There is mild to moderate tricuspid regurgitation. Right ventricular systolic pressure is estimated at greater than 60 mmHg. There is severe pulmonary hypertension. PULMONIC VALVE The pulmonary valve is normal in structure. There is mild pulmonic valvular regurgitation. GREAT VESSELS The aortic root is normal in size. The ascending aorta is normal in size. The IVC is dilated. PERICARDIAL EFFUSION There is no pericardial effusion. <Conclusion> Left ventricle systolic function is moderately to severely impaired. The Ejection Fraction is 35-40%. Transmitral Doppler flow pattern is Grade II-pseudonormal filling dynamics. There is mild aortic regurgitation. Mitral regurgitation is moderate.ERO 0.5 cm There is severe pulmonary hypertension.
--- NOTE | 2017-08-09 23:11 | CP.PCM.CON ---
History of Present Illness - History of Present Illness History of Present Illness: Patient seen and evaluated Admitted for chest pain and elevated Troponin Cardiac cath at 2pm tomorrow to re assess Coronaries Past Patient History - Infectious Disease Hx of Infectious Diseases: None - Past Medical History & Family History Past Medical History?: Yes - Past Social History Smoking Status: Never Smoked Chewing Tobacco Use: No Cigar Use: No Alcohol: None Drugs: Denies Home Situation {Lives}: With Family - CARDIAC Hx Congestive Heart Failure: Yes Hx Hypertension: Yes Hx Peripheral Edema: Yes - PULMONARY Hx Asthma: Yes Hx Chronic Obstructive Pulmonary Disease (COPD): Yes - NEUROLOGICAL Hx Neurological Disorder: No - HEENT Hx HEENT Problems: Yes Hx Cataracts: Yes (with surgery done and IOL) - RENAL Hx Chronic Kidney Disease: Yes - ENDOCRINE/METABOLIC Hx Hypothyroidism: Yes - HEMATOLOGICAL/ONCOLOGICAL Hx Anemia: Yes - INTEGUMENTARY Hx Dermatological Problems: No - GASTROINTESTINAL Hx Gastrointestinal Disorders: No - GENITOURINARY/GYNECOLOGICAL Hx Genitourinary Disorders: No - PSYCHIATRIC Hx Substance Use: No - SURGICAL HISTORY Hx Surgeries: Yes Hx Vascular Access Device: Yes Other/Comment: L arm AV Fistula-2 months ago. Insertion of Perma Cath to R chest 2 months ago - ANESTHESIA Hx Anesthesia: Yes Hx Anesthesia Reactions: No Hx Malignant Hyperthermia: No Meds Allergies/Adverse Reactions: Allergies Allergy/AdvReac Type Severity Reaction Status Date / Time No Known Allergies Allergy Verified 12/08/16 16:55 - Medications Medications: Current Medications Albuterol/Ipratropium (Duoneb 3 Mg/0.5 Mg (3 Ml) Ud) 3 ml INH RQ6 [facility] Last Admin: 08/09/17 19:38 Dose: 3 ml Aspirin (Ecotrin) 81 mg PO DAILY [facility] Last Admin: 08/09/17 11:00 Dose: 81 mg Budesonide (Pulmicort Respules) 0.5 mg INH RQ12 [facility] Last Admin: 08/09/17 19:38 Dose: 0.5 mg Clopidogrel Bisulfate (Plavix) 75 mg PO DAILY [facility] Last Admin: 08/09/17 11:00 Dose: 75 mg Doxycycline Hyclate (Doryx) 100 mg PO Q12H [facility] PRN Reason: Protocol Last Admin: 08/09/17 18:57 Dose: 100 mg Heparin Sodium (Porcine) (Heparin) 5,000 units SC Q12 [facility] Last Admin: 08/09/17 21:56 Dose: 5,000 units Hydralazine HCl (Apresoline) 10 mg PO QID [facility] Last Admin: 08/09/17 21:59 Dose: Not Given Insulin Aspart (Novolog) 0 unit SC ACHS [facility] PRN Reason: Protocol Last Admin: 08/09/17 21:50 Dose: 4 unit Insulin Glargine (Lantus) 30 unit SC DAILY [facility] Levothyroxine Sodium (Synthroid) 50 mcg PO DAILY@0630 [facility] Last Admin: 08/09/17 05:32 Dose: 50 mcg Methylprednisolone (Solu-Medrol) 40 mg IVP DAILY [facility] Metoprolol Tartrate (Lopressor) 25 mg PO BID [facility] Last Admin: 08/09/17 20:04 Dose: Not Given Pantoprazole Sodium (Protonix Ec Tab) 40 mg PO DAILY [facility] Last Admin: 08/09/17 11:00 Dose: 40 mg Pregabalin (Lyrica) 75 mg PO DAILY [facility] Rosuvastatin Calcium (Crestor) 5 mg PO HS [facility] Last Admin: 08/09/17 22:00 Dose: 5 mg Sevelamer Carbonate (Renvela) 800 mg PO BIDAC [facility] Last Admin: 08/09/17 18:50 Dose: 800 mg Results - Vital Signs Recent Vital Signs: Last Vital Signs Temp 97.8 F 08/09/17 18:06 Pulse 72 08/09/17 22:03 Resp 20 08/09/17 18:06 BP 105/65 08/09/17 22:03 Pulse Ox 98 08/09/17 18:06 - Labs Result Diagrams: 08/09/17 08:17 08/09/17 08:17 Labs: Laboratory Results - last 24 hr 08/08/17 08/09/17 08/09/17 21:43 06:35 08:17 WBC 3.7 L RBC 3.48 L Hgb 11.6 L Hct 33.8 L MCV 97.2 H MCH 33.3 H MCHC 34.2 RDW 14.4 Plt Count 103 L MPV 9.7 Neut % (Auto) 78.6 H Lymph % (Auto) 16.7 L [place] % (Auto) 4.5 Eos % (Auto) 0.0 Baso % (Auto) 0.2 Neut # (Auto) 2.9 Lymph # (Auto) 0.6 L [place] # (Auto) 0.2 Eos # (Auto) 0.0 Baso # (Auto) 0.0 Sodium Potassium Chloride Carbon Dioxide Anion Gap BUN Creatinine Est GFR ( Amer) Est GFR (Non-Af Amer) POC Glucose (mg/dL) 374 H 496 H* Random Glucose Calcium Total Bilirubin AST ALT Alkaline Phosphatase Total Protein Albumin Globulin Albumin/Globulin Ratio 08/09/17 08/09/17 08/09/17 08:17 11:26 18:32 WBC RBC Hgb Hct MCV MCH MCHC RDW Plt Count MPV Neut % (Auto) Lymph % (Auto) [place] % (Auto) Eos % (Auto) Baso % (Auto) Neut # (Auto) Lymph # (Auto) [place] # (Auto) Eos # (Auto) Baso # (Auto) Sodium 129 L Potassium 5.0 Chloride 85 L Carbon Dioxide 22 Anion Gap 26 H BUN 64 H Creatinine 6.4 H Est GFR ( Amer) 10 Est GFR (Non-Af Amer) 8 POC Glucose (mg/dL) 481 H* 266 H Random Glucose 521 H* D Calcium 8.0 L Total Bilirubin 1.0 AST 31 ALT 45 Alkaline Phosphatase 101 Total Protein 6.3 Albumin 3.5 Globulin 2.8 Albumin/Globulin Ratio 1.3 08/09/17 20:52 WBC RBC Hgb Hct MCV MCH MCHC RDW Plt Count MPV Neut % (Auto) Lymph % (Auto) [place] % (Auto) Eos % (Auto) Baso % (Auto) Neut # (Auto) Lymph # (Auto) [place] # (Auto) Eos # (Auto) Baso # (Auto) Sodium Potassium Chloride Carbon Dioxide Anion Gap BUN Creatinine Est GFR ( Amer) Est GFR (Non-Af Amer) POC Glucose (mg/dL) 457 H* Random Glucose Calcium Total Bilirubin AST ALT Alkaline Phosphatase Total Protein Albumin Globulin Albumin/Globulin Ratio
[2017-08-10] MEDS: Albuterol-Ipratrop 3 mg / 0.5 (3 ml) UD INH SCH ×4 (01:10→20:28)
[2017-08-10] MEDS: Levothyroxine 50 MCG TAB PO SCH (05:36)
--- NOTE | 2017-08-10 07:18 | CP.PCM.PN ---
<Kiah Mcduffie - Last Filed: 08/10/17 13:16> Subjective - Date & Time of Evaluation Date of Evaluation: 08/10/17 Time of Evaluation: 07:16 - Subjective Subjective: Progress note for Dr. Justice Patient seen and examined at bedside. Patient had dialysis yesterday, patient was hypotensive yesterday and blood pressure medications were held. Patient is scheduled to have a cardiac cath today by Dr. Garcia and Patient is NPO for procedure. Patient states he feels well and tolerated dialysis yesterday. Patient denies fever, chills, shortness of breath. Patient admits to cough. Objective - Vital Signs/Intake and Output Vital Signs (last 24 hours): Temp Pulse Resp BP Pulse Ox 97.7 F 79 20 101/59 L 95 08/09/17 23:44 08/10/17 01:00 08/09/17 23:44 08/09/17 23:44 08/09/17 23:44 Intake and Output: 08/10/17 08/10/17 06:59 18:59 Intake Total 480 Balance 480 - Medications Medications: Current Medications Albuterol/Ipratropium (Duoneb 3 Mg/0.5 Mg (3 Ml) Ud) 3 ml INH RQ6 [facility] Last Admin: 08/10/17 01:10 Dose: Not Given Aspirin (Ecotrin) 81 mg PO DAILY [facility] Last Admin: 08/09/17 11:00 Dose: 81 mg Budesonide (Pulmicort Respules) 0.5 mg INH RQ12 [facility] Last Admin: 08/09/17 19:38 Dose: 0.5 mg Clopidogrel Bisulfate (Plavix) 75 mg PO DAILY [facility] Last Admin: 08/09/17 11:00 Dose: 75 mg Doxycycline Hyclate (Doryx) 100 mg PO Q12H [facility] PRN Reason: Protocol Last Admin: 08/10/17 05:35 Dose: 100 mg Heparin Sodium (Porcine) (Heparin) 5,000 units SC Q12 [facility] Last Admin: 08/09/17 21:56 Dose: 5,000 units Hydralazine HCl (Apresoline) 10 mg PO QID [facility] Last Admin: 08/09/17 21:59 Dose: Not Given Insulin Aspart (Novolog) 0 unit SC ACHS [facility] PRN Reason: Protocol Last Admin: 08/09/17 21:50 Dose: 4 unit Insulin Glargine (Lantus) 30 unit SC DAILY [facility] Levothyroxine Sodium (Synthroid) 50 mcg PO DAILY@0630 [facility] Last Admin: 08/10/17 05:36 Dose: 50 mcg Methylprednisolone (Solu-Medrol) 40 mg IVP DAILY [facility] Metoprolol Tartrate (Lopressor) 25 mg PO BID [facility] Last Admin: 08/09/17 20:04 Dose: Not Given Pantoprazole Sodium (Protonix Ec Tab) 40 mg PO DAILY [facility] Last Admin: 08/09/17 11:00 Dose: 40 mg Pregabalin (Lyrica) 75 mg PO DAILY [facility] Rosuvastatin Calcium (Crestor) 5 mg PO HS [facility] Last Admin: 08/09/17 22:00 Dose: 5 mg Sevelamer Carbonate (Renvela) 800 mg PO BIDAC [facility] Last Admin: 08/09/17 18:50 Dose: 800 mg - Labs Labs: 08/09/17 08:17 08/09/17 08:17 PT 14.8 SECONDS (9.7-12.2) H 08/07/17 23:19 INR 1.3 08/07/17 23:19 APTT 22 SECONDS (21-34) 08/07/17 23:19 - Constitutional Appears: Non-toxic, No Acute Distress - Head Exam Head Exam: ATRAUMATIC, NORMAL INSPECTION, NORMOCEPHALIC - Eye Exam Eye Exam: EOMI, Normal appearance Pupil Exam: NORMAL ACCOMODATION, PERRL - ENT Exam ENT Exam: Mucous Membranes Moist, Normal Exam - Respiratory Exam Respiratory Exam: NORMAL BREATHING PATTERN. absent: Accessory Muscle Use - Cardiovascular Exam Cardiovascular Exam: REGULAR RHYTHM, +S1, +S2 - GI/Abdominal Exam GI & Abdominal Exam: Soft, Normal Bowel Sounds. absent: Tenderness - Back Exam Back Exam: Full ROM, NORMAL INSPECTION - Neurological Exam Neurological Exam: Awake, CN II-XII Intact - Skin Skin Exam: Dry, Pallor, Warm Assessment and Plan - Assessment and Plan (Free Text) Assessment: 82M with past medical history of Asthma, copd, chf, dm, htn, hypothyroidsism and ESRD on HD via avf presents with shortness of breath, hoarse voice x 2 months COPD Chest CTA - Cardiomegaly and atherosclerotic disease; small right effusion with trace left effusion minimal atelectatic changes greatest in the lung bases ; dependent atelectasis; pericholecystic fluid suggest possible cholecystitis. Duonebs q6h PRN Doxycycline 100mg PO BID Pulmicort 0.25 INH Q12H Prednisone 40mg PO daily Pulm Consult: Dr. Adrian Hayward hx of CHF Nuclear Stress Test 12/09/16 - There is no stress induced perfusion defect or transient ischemic dilation noted. However there is a slight drop in EF with stress test. Abnormal stress test. Echo: severe pulmonary HTN, mild aortic regurgitation, moderate to severe left ventricular systolic function, EF 37.4% pro-BNP 89231 Trop neg x1; f/u 2 more Coreg 3.125mg PO daily Crestor 5mg PO HS Hydralazine 10mg PO QID Cardio: Dr. Garcia ESRD on HD ([facility]) Nephrology consulted, Dr. Cain Renvela 800 mg PO BIDAC elevated troponin - believed to be 2/2 ESRD DM Lyrica 75mg PO BID patient takes 8u Lispro at home before each meal and 20u Lantus BID. Hypothryroidism continue home medications: Synthroid 50mcg PO daily HTN Coreg 3.125mg PO daily Crestor 5mg PO HS Prophylactic Measures GI PPX: Protonix 40mg PO daily DVT PPX: Heparin 5000 SC Q12, SCDs Dispo: Patient's son Nick Lindsey [phone]. <Nurys Justice - Last Filed: 08/10/17 18:45> Objective - Vital Signs/Intake and Output Vital Signs (last 24 hours): Temp Pulse Resp BP Pulse Ox 97.2 F L 75 20 115/67 97 08/10/17 17:17 08/10/17 17:17 08/10/17 17:17 08/10/17 17:54 08/10/17 17:17 Intake and Output: 08/10/17 08/10/17 06:59 18:59 Intake Total 480 150 Balance 480 150 - Medications Medications: Current Medications Albuterol/Ipratropium (Duoneb 3 Mg/0.5 Mg (3 Ml) Ud) 3 ml INH RQ6 [facility] Last Admin: 08/10/17 13:19 Dose: Not Given Aspirin (Ecotrin) 81 mg PO DAILY [facility] Last Admin: 08/10/17 10:56 Dose: 81 mg Budesonide (Pulmicort Respules) 0.5 mg INH RQ12 [facility] Last Admin: 08/10/17 07:24 Dose: 0.5 mg Doxycycline Hyclate (Doryx) 100 mg PO Q12H [facility] PRN Reason: Protocol Last Admin: 08/10/17 17:56 Dose: 100 mg Heparin Sodium/Sodium Chloride (Heparin 46652 Units/250ml 1/2 Normal Saline) 25 ,000 units in 250 mls @ 0 mls/hr IV .Q0M PRN; Protocol; Per Protocol PRN Reason: PROTOCOL Insulin Aspart (Novolog) 0 unit SC ACHS [facility] PRN Reason: Protocol Last Admin: 08/10/17 17:54 Dose: 8 unit Insulin Glargine (Lantus) 30 unit SC DAILY [facility] Last Admin: 08/10/17 16:05 Dose: 30 unit Levothyroxine Sodium (Synthroid) 50 mcg PO DAILY@0630 [facility] Last Admin: 08/10/17 05:36 Dose: 50 mcg Metoprolol Tartrate (Lopressor) 25 mg PO BID [facility] Last Admin: 08/10/17 17:54 Dose: 25 mg Pantoprazole Sodium (Protonix Ec Tab) 40 mg PO DAILY [facility] Last Admin: 08/10/17 10:56 Dose: 40 mg Pregabalin (Lyrica) 75 mg PO DAILY [facility] Last Admin: 08/10/17 10:55 Dose: 75 mg Rosuvastatin Calcium (Crestor) 5 mg PO HS [facility] Last Admin: 08/09/17 22:00 Dose: 5 mg Sevelamer Carbonate (Renvela) 800 mg PO BIDAC [facility] Last Admin: 08/10/17 17:54 Dose: 800 mg - Labs Labs: 08/10/17 07:09 08/10/17 07:09 PT 14.4 SECONDS (9.7-12.2) H 08/10/17 07:10 INR 1.3 08/10/17 07:10 APTT 45 SECONDS (21-34) H D 08/10/17 07:10 Attending/Attestation - Attestation I have personally seen and examined this patient.: Yes I have fully participated in the care of the patient.: Yes I have reviewed all pertinent clinical information, including history, physical exam and plan: Yes Notes (Text): Patient was seen and examined this morning with the resident. He was sitting comfortable with no complain. Has cough for weeks. denies chest pain,no sob. Discussed with resident this morning. 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 His EF 25% Discussed with Dr Garcia. life vest ordered for him.Planning to transfer him to [facility] for intervention for his tripple vessel disease.Dr Garcia recommend to start him on Heparin drip with bolus cardiac protocol at 10pm tonmarva. and start low dose ACEI . He spoke to patient's granddaughter. His cath finding and the Plan discussed with shannon LUCIANO.
[2017-08-10] MEDS: Budesonide 0.5 mg/2 ml Inhal Susp UD INH SCH ×2 (07:24→20:28)
[2017-08-10 07:26] LABS: INR 1.3; PROTHROMBIN TIME 14.4 SECONDS (9.7-12.2)
[2017-08-10 07:33] LABS: LYMPH # 0.7 K/uL (1.0-4.3); LYMPH % 6.7 % (20.0-40.0); MEAN CELL VOLUME 96.6 fL (80.0-94.0); MEAN CORPUSCULAR HEMOGLOBIN 33.7 pg (27.0-31.0); MEAN CORPUSCULAR HGB CONC 34.8 g/dL (33.0-37.0); MEAN PLATELET VOLUME 9.7 fL (7.2-11.7); MONO # 0.8 K/uL (0.0-0.8); MONO % 7.4 % (0.0-10.0); NEUT # 9.3 K/uL (1.8-7.0); NEUT % 85.9 % (50.0-75.0); NRBC % 0.1 % (0.0-2.0); PLATELET COUNT 108 K/uL (130-400); RBC 3.57 Mil/uL (4.40-5.90); RED CELL DISTRIBUTION WIDTH 14.6 % (11.5-14.5); WHITE BLOOD COUNT 10.8 K/uL (4.8-10.8)
[2017-08-10 08:14] LABS: ALB/GLOB RATIO 1.2 (1.0-2.1); ALBUMIN 3.6 g/dL (3.5-5.0); CALCIUM 8.3 mg/dl (8.6-10.4)
[2017-08-10] MEDS: (Novolog) Insulin Aspart, Recombinant 100 u/ml 10 ml vial SC SCH ×4 (08:24→21:38)
[2017-08-10 09:25] LABS: BANDS 2 % (0-2); LYMPHOCYTE 5 % (20-40); MONOCYTE 5 % (0-10); NEUTROPHIL 88 % (50-75); TOTAL CELLS COUNTED 100
[2017-08-10 09:26] LABS: PLATELET ESTIMATE SLIGHTLY DECREASED (NORMAL)
[2017-08-10] MEDS ORDERED: MethylPREDNISolone 40 mg Vial IVP SCH (10:00)
[2017-08-10] MEDS: Pantoprazole 40 mg EC Tab PO SCH (10:56)
[2017-08-10] MEDS: (Lantus) Insulin Glargine, Recombinant SC SCH ×2 (10:57→16:05)
--- NOTE | 2017-08-10 12:57 | CP.PCM.PN ---
Subjective - Date & Time of Evaluation Date of Evaluation: 08/10/17 Time of Evaluation: 12:56 - Subjective Subjective: seen and examined improved breathing c/o cough no chest pain no n/v/d/dizziness/headache/rash/fevers/chills scheduled for cardiac cath today Objective - Vital Signs/Intake and Output Vital Signs (last 24 hours): Temp Pulse Resp BP Pulse Ox 97.3 F L 87 18 104/66 96 08/10/17 07:30 08/10/17 10:52 08/10/17 07:30 08/10/17 10:55 08/10/17 07:30 Intake and Output: 08/10/17 08/10/17 06:59 18:59 Intake Total 480 Balance 480 - Medications Medications: Current Medications Albuterol/Ipratropium (Duoneb 3 Mg/0.5 Mg (3 Ml) Ud) 3 ml INH RQ6 [facility] Last Admin: 08/10/17 07:24 Dose: 3 ml Aspirin (Ecotrin) 81 mg PO DAILY [facility] Last Admin: 08/10/17 10:56 Dose: 81 mg Budesonide (Pulmicort Respules) 0.5 mg INH RQ12 [facility] Last Admin: 08/10/17 07:24 Dose: 0.5 mg Clopidogrel Bisulfate (Plavix) 75 mg PO DAILY [facility] Last Admin: 08/10/17 10:55 Dose: 75 mg Doxycycline Hyclate (Doryx) 100 mg PO Q12H [facility] PRN Reason: Protocol Last Admin: 08/10/17 05:35 Dose: 100 mg Heparin Sodium (Porcine) (Heparin) 5,000 units SC Q12 [facility] Last Admin: 08/10/17 10:57 Dose: Not Given Insulin Aspart (Novolog) 0 unit SC ACHS [facility] PRN Reason: Protocol Last Admin: 08/10/17 12:27 Dose: 10 unit Insulin Glargine (Lantus) 30 unit SC DAILY [facility] Last Admin: 08/10/17 10:57 Dose: Not Given Levothyroxine Sodium (Synthroid) 50 mcg PO DAILY@0630 [facility] Last Admin: 08/10/17 05:36 Dose: 50 mcg Methylprednisolone (Solu-Medrol) 40 mg IVP DAILY [facility] Last Admin: 08/10/17 10:56 Dose: 40 mg Metoprolol Tartrate (Lopressor) 25 mg PO BID [facility] Last Admin: 08/10/17 10:55 Dose: 25 mg Pantoprazole Sodium (Protonix Ec Tab) 40 mg PO DAILY [facility] Last Admin: 08/10/17 10:56 Dose: 40 mg Pregabalin (Lyrica) 75 mg PO DAILY [facility] Last Admin: 08/10/17 10:55 Dose: 75 mg Rosuvastatin Calcium (Crestor) 5 mg PO HS [facility] Last Admin: 08/09/17 22:00 Dose: 5 mg Sevelamer Carbonate (Renvela) 800 mg PO BIDAC [facility] Last Admin: 08/10/17 08:24 Dose: 800 mg - Labs Labs: 08/10/17 07:09 08/10/17 07:09 PT 14.4 SECONDS (9.7-12.2) H 08/10/17 07:10 INR 1.3 08/10/17 07:10 APTT 45 SECONDS (21-34) H D 08/10/17 07:10 - Constitutional Appears: Non-toxic, No Acute Distress, Chronically Ill - Head Exam Head Exam: NORMAL INSPECTION - Eye Exam Eye Exam: Normal appearance, PERRL - ENT Exam ENT Exam: Mucous Membranes Moist, Normal Exam - Respiratory Exam Respiratory Exam: Decreased Breath Sounds, NORMAL BREATHING PATTERN - Cardiovascular Exam Cardiovascular Exam: REGULAR RHYTHM, RRR - GI/Abdominal Exam GI & Abdominal Exam: Distended, Soft, Normal Bowel Sounds - Extremities Exam Extremities Exam: Full ROM (lue avf), Normal Inspection - Neurological Exam Neurological Exam: Alert, Awake, Oriented x3 - Psychiatric Exam Psychiatric exam: Normal Affect, Normal Mood - Skin Skin Exam: Intact, Normal Color, Warm Assessment and Plan (1) CHF (congestive heart failure) Status: Acute (2) ESRD (end stage renal disease) on dialysis Status: Acute (3) CAD (coronary artery disease) Status: Acute - Assessment and Plan (Free Text) Assessment: plan for cardiac cath noted hd tomorrow hgb at goal hold hydralazine, low bp
[2017-08-10] MEDS ORDERED: Lidocaine 2% Inj (20ml) ONE (14:08)
[2017-08-10] MEDS ORDERED: Midazolam 2 MG/2 ML VIAL ONE (14:08)
[2017-08-10] MEDS ORDERED: Iodixanol 320 MG/ML 200 ML BOTTLE IV ONE (14:14)
--- NOTE | 2017-08-10 15:20 | CP.PCM.PN ---
Subjective - Date & Time of Evaluation Date of Evaluation: 08/10/17 Time of Evaluation: 15:17 - Subjective Subjective: Patient s/p cath Severe L Main and Triple vessel disease Poor LV EF 25% Patient for CABG at [facility]. Planning transfer Life Vest eval Objective - Vital Signs/Intake and Output Vital Signs (last 24 hours): Temp Pulse Resp BP Pulse Ox 97.3 F L 90 18 104/66 96 08/10/17 07:30 08/10/17 12:00 08/10/17 07:30 08/10/17 10:55 08/10/17 07:30 Intake and Output: 08/10/17 08/10/17 06:59 18:59 Intake Total 480 150 Balance 480 150 - Medications Medications: Current Medications Albuterol/Ipratropium (Duoneb 3 Mg/0.5 Mg (3 Ml) Ud) 3 ml INH RQ6 [facility] Last Admin: 08/10/17 13:19 Dose: Not Given Aspirin (Ecotrin) 81 mg PO DAILY [facility] Last Admin: 08/10/17 10:56 Dose: 81 mg Budesonide (Pulmicort Respules) 0.5 mg INH RQ12 [facility] Last Admin: 08/10/17 07:24 Dose: 0.5 mg Doxycycline Hyclate (Doryx) 100 mg PO Q12H [facility] PRN Reason: Protocol Last Admin: 08/10/17 05:35 Dose: 100 mg Heparin Sodium (Porcine) (Heparin) 5,000 units SC Q12 [facility] Last Admin: 08/10/17 10:57 Dose: Not Given Insulin Aspart (Novolog) 0 unit SC ACHS [facility] PRN Reason: Protocol Last Admin: 08/10/17 12:27 Dose: 10 unit Insulin Glargine (Lantus) 30 unit SC DAILY [facility] Last Admin: 08/10/17 10:57 Dose: Not Given Levothyroxine Sodium (Synthroid) 50 mcg PO DAILY@0630 [facility] Last Admin: 08/10/17 05:36 Dose: 50 mcg Metoprolol Tartrate (Lopressor) 25 mg PO BID [facility] Last Admin: 08/10/17 10:55 Dose: 25 mg Pantoprazole Sodium (Protonix Ec Tab) 40 mg PO DAILY [facility] Last Admin: 08/10/17 10:56 Dose: 40 mg Pregabalin (Lyrica) 75 mg PO DAILY [facility] Last Admin: 08/10/17 10:55 Dose: 75 mg Rosuvastatin Calcium (Crestor) 5 mg PO HS [facility] Last Admin: 08/09/17 22:00 Dose: 5 mg Sevelamer Carbonate (Renvela) 800 mg PO BIDAC [facility] Last Admin: 08/10/17 08:24 Dose: 800 mg - Labs Labs: 08/10/17 07:09 08/10/17 07:09 PT 14.4 SECONDS (9.7-12.2) H 08/10/17 07:10 INR 1.3 08/10/17 07:10 APTT 45 SECONDS (21-34) H D 08/10/17 07:10
[2017-08-10] MEDS ORDERED: Heparin25000 units/250ml 1/2NS 25,000 UNITS/250 ML BAG IV PRN ×2 (22:00→23:00)
[2017-08-11] MEDS: Albuterol-Ipratrop 3 mg / 0.5 (3 ml) UD INH SCH ×3 (01:22→13:25)
[2017-08-11] MEDS: Levothyroxine 50 MCG TAB PO SCH (05:39)
[2017-08-11 06:04] LABS: BASO % 0.1 % (0.0-2.0); HEMOGLOBIN 11.5 g/dL (12.0-18.0); LYMPH # 0.5 K/uL (1.0-4.3); LYMPH % 4.5 % (20.0-40.0); MEAN CELL VOLUME 97.3 fL (80.0-94.0); MEAN CORPUSCULAR HEMOGLOBIN 33.1 pg (27.0-31.0); MEAN CORPUSCULAR HGB CONC 34.1 g/dL (33.0-37.0); MEAN PLATELET VOLUME 10.2 fL (7.2-11.7); MONO # 0.7 K/uL (0.0-0.8); MONO % 6.4 % (0.0-10.0); NEUT # 10.3 K/uL (1.8-7.0); NRBC % 0.1 % (0.0-2.0); PLATELET COUNT 94 K/uL (130-400); RBC 3.48 Mil/uL (4.40-5.90); RED CELL DISTRIBUTION WIDTH 14.5 % (11.5-14.5); WHITE BLOOD COUNT 11.6 K/uL (4.8-10.8)
[2017-08-11 06:41] LABS: ALB/GLOB RATIO 1.3 (1.0-2.1); ALBUMIN 3.3 g/dL (3.5-5.0); CALCIUM 7.7 mg/dl (8.6-10.4)
[2017-08-11] MEDS: Budesonide 0.5 mg/2 ml Inhal Susp UD INH SCH (07:21)
--- NOTE | 2017-08-11 08:26 | CARDCATH ---
PROCEDURE DATE: 08/10/2017 PROCEDURES: 1. Left heart catheterization. 2. Coronary angiogram. 3. Radiological supervision and radiological interpretation of the coronary angiogram or left heart catheterization. 4. Right common iliac angiogram. CLINICAL INDICATIONS: 1. Chest pain. 2. [id number] myocardial infraction. 3. Coronary artery disease. 4. Hypertension. 5. Chronic renal failure, on hemodialysis. 6. Diabetes. 7. Hyperlipemia. REFERRING PHYSICIAN: Ayaz Purcell MD PERFORMING PHYSICIAN: Roger Garcia MD PROCEDURE IN DETAIL: After informed consent, the patient was prepped and draped in the usual sterile fashion. A 2% lidocaine was given in the right groin for local anesthesia. Using micropuncture technique, 6-Guamanian sheath was introduced into right common femoral artery. Since, there was wire resistance in the common iliac artery, right iliac angiogram was performed. Right iliac angiogram revealed 80% proximal stenosis. A JL4, 6-Guamanian diagnostic catheter was engaged into left main coronary artery. Contrast injected and left coronary angiogram was performed. Then JR4, 6-Guamanian diagnostic catheter engaged into the right coronary. Contrast injected and right coronary angiogram was performed. Then JR 4 cathetercrossed into left ventricular across the aortic valve. LV and diastolic pressure measured. Contrast injected and LV angiogram was performed, and the catheter was pulled back across the aortic valve. Gradient across aortic valve was measured. The patient tolerated the procedure well. Postprocedure, Mynx closure device was deployed with excellent hemostasis. FINDINGS: 1. The patient has calcific coronary arteries. 2. Distal left main coronary artery has 80% eccentric calcific stenosis. 3. Ostial LAD has a 70% stenosis. Mid LAD has a long 90% calcific stenosis. Diagonal branches are patent. Ostial left circumflex has a 95% critical stenosis. Proximal left circumflex has 90% calcific stenosis. 4. Right coronary artery is codominant system. Proximally, it is 100% occluded. There are left to right collaterals. 5. LV is dilated. LV ejection fraction is approximated 25% to 30%. Ischemic cardiomyopathy. End diastolic pressure is 35. IMPRESSION: 1. 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 2. Calcific coronary artery disease. 3. Ischemic dilated cardiomyopathy with ejection fraction of 20% to 25%. PLAN: Recommend coronary artery bypass surgery. LifeVest for 3 months followed by ICD evaluation. Roger Garcia MD [facility] # [id number] [facility]
[2017-08-11] MEDS: (Novolog) Insulin Aspart, Recombinant 100 u/ml 10 ml vial SC SCH ×3 (08:30→19:36)
[2017-08-11 08:49] LABS: ANISOCYTOSIS SLIGHT; BANDS 1 % (0-2); LYMPHOCYTE 4 % (20-40); MONOCYTE 4 % (0-10); NEUTROPHIL 91 % (50-75); PLATELET ESTIMATE DECREASED (NORMAL); TOTAL CELLS COUNTED 100
[2017-08-11] MEDS: (Lantus) Insulin Glargine, Recombinant SC SCH (10:47)
[2017-08-11] MEDS: Pantoprazole 40 mg EC Tab PO SCH (10:47)
[2017-08-11] MEDS ORDERED: Heparin25000 units/250ml 1/2NS 25,000 UNITS/250 ML BAG IV PRN (12:00)
--- NOTE | 2017-08-11 12:48 | CP.PCM.PN ---
Subjective - Date & Time of Evaluation Date of Evaluation: 08/11/17 Time of Evaluation: 12:45 - Subjective Subjective: s/p cath- results noted will need CABG- to be transferred [place] [facility] [place] no more CPs, n, v, SOB, f, chills Objective - Vital Signs/Intake and Output Vital Signs (last 24 hours): Temp Pulse Resp BP Pulse Ox 97.2 F L 77 20 118/68 98 08/11/17 07:25 08/11/17 08:00 08/11/17 07:25 08/11/17 07:25 08/11/17 07:25 Intake and Output: 08/11/17 08/11/17 06:59 18:59 Intake Total 498 Balance 498 - Medications Medications: Current Medications Albuterol/Ipratropium (Duoneb 3 Mg/0.5 Mg (3 Ml) Ud) 3 ml INH RQ6 [facility] Last Admin: 08/11/17 07:21 Dose: 3 ml Aspirin (Ecotrin) 81 mg PO DAILY [facility] Last Admin: 08/11/17 10:47 Dose: 81 mg Budesonide (Pulmicort Respules) 0.5 mg INH RQ12 [facility] Last Admin: 08/11/17 07:21 Dose: 0.5 mg Heparin Sodium/Sodium Chloride (Heparin 87012 Units/250ml 1/2 Normal Saline) 25 ,000 units in 250 mls @ 6.736 mls/hr IV .Q24H PRN; Protocol; 9 UNITS/KG/HR PRN Reason: PROTOCOL Insulin Aspart (Novolog) 0 unit SC ACHS [facility] PRN Reason: Protocol Last Admin: 08/11/17 12:03 Dose: 8 unit Insulin Glargine (Lantus) 30 unit SC DAILY [facility] Last Admin: 08/11/17 10:47 Dose: 30 unit Levothyroxine Sodium (Synthroid) 50 mcg PO DAILY@0630 [facility] Last Admin: 08/11/17 05:39 Dose: 50 mcg Lisinopril (Zestril) 2.5 mg PO DAILY [facility] Last Admin: 08/11/17 10:51 Dose: Not Given Metoprolol Tartrate (Lopressor) 25 mg PO BID [facility] Last Admin: 08/11/17 10:50 Dose: Not Given Pantoprazole Sodium (Protonix Ec Tab) 40 mg PO DAILY [facility] Last Admin: 08/11/17 10:47 Dose: 40 mg Pregabalin (Lyrica) 75 mg PO DAILY [facility] Last Admin: 08/11/17 10:47 Dose: 75 mg Rosuvastatin Calcium (Crestor) 5 mg PO HS [facility] Last Admin: 08/10/17 21:46 Dose: 5 mg Sevelamer Carbonate (Renvela) 800 mg PO BIDAC [facility] Last Admin: 08/11/17 08:00 Dose: 800 mg - Labs Labs: 08/11/17 05:58 08/11/17 05:58 PT 14.4 SECONDS (9.7-12.2) H 08/10/17 07:10 INR 1.3 08/10/17 07:10 APTT > 400 SECONDS (21-34) H* D 08/11/17 10:58 - Constitutional Appears: No Acute Distress, Chronically Ill - Head Exam Head Exam: NORMAL INSPECTION - Eye Exam Eye Exam: EOMI, Normal appearance - Neck Exam Neck Exam: Normal Inspection. absent: Tenderness - Respiratory Exam Respiratory Exam: Clear to Ausculation Bilateral, NORMAL BREATHING PATTERN - Cardiovascular Exam Cardiovascular Exam: REGULAR RHYTHM, +S1 - GI/Abdominal Exam GI & Abdominal Exam: Soft. absent: Tenderness - Extremities Exam Extremities Exam: Normal Inspection. absent: Tenderness - Neurological Exam Neurological Exam: Alert, CN II-XII Intact - Skin Skin Exam: Dry, Warm Assessment and Plan (1) CHF (congestive heart failure) Status: Acute (2) ESRD (end stage renal disease) on dialysis Status: Acute (3) CAD (coronary artery disease) Status: Acute (4) DM2 (diabetes mellitus, type 2) Status: Chronic - Assessment and Plan (Free Text) Plan: Dialysis now and MWF Transfer for CABG pending
[2017-08-11 15:52] VITALS: RESP 18
--- NOTE | 2017-08-11 18:25 | CP.PCM.DIS ---
<Kiah Mcduffie - Last Filed: 08/12/17 13:51> Provider - Provider Date of Admission: 08/08/17 03:16 Attending physician: Nurys Justice MD Consults: Dr. Garcia Time Spent in preparation of Discharge (in minutes): 35 Hospital Course - Lab Results Lab Results: Most Recent Lab Values WBC 11.6 K/uL (4.8-10.8) H 08/11/17 05:58 RBC 3.48 Mil/uL (4.40-5.90) L 08/11/17 05:58 Hgb 11.5 g/dL (12.0-18.0) L 08/11/17 05:58 Hct 33.9 % (35.0-51.0) L 08/11/17 05:58 MCV 97.3 fL (80.0-94.0) H 08/11/17 05:58 MCH 33.1 pg (27.0-31.0) H 08/11/17 05:58 MCHC 34.1 g/dL (33.0-37.0) 08/11/17 05:58 RDW 14.5 % (11.5-14.5) 08/11/17 05:58 Plt Count 94 K/uL (130-400) L 08/11/17 05:58 MPV 10.2 fL (7.2-11.7) 08/11/17 05:58 Neut % (Auto) 89.0 % (50.0-75.0) H 08/11/17 05:58 Lymph % (Auto) 4.5 % (20.0-40.0) L 08/11/17 05:58 [place] % (Auto) 6.4 % (0.0-10.0) 08/11/17 05:58 Eos % (Auto) 0.0 % (0.0-4.0) 08/11/17 05:58 Baso % (Auto) 0.1 % (0.0-2.0) 08/11/17 05:58 Neut # (Auto) 10.3 K/uL (1.8-7.0) H 08/11/17 05:58 Lymph # (Auto) 0.5 K/uL (1.0-4.3) L 08/11/17 05:58 [place] # (Auto) 0.7 K/uL (0.0-0.8) 08/11/17 05:58 Eos # (Auto) 0.0 K/uL (0.0-0.7) 08/11/17 05:58 Baso # (Auto) 0.0 K/uL (0.0-0.2) 08/11/17 05:58 Neutrophils % (Manual) 91 % (50-75) H 08/11/17 05:58 Band Neutrophils % 1 % (0-2) 08/11/17 05:58 Lymphocytes % (Manual) 4 % (20-40) L 08/11/17 05:58 Monocytes % (Manual) 4 % (0-10) 08/11/17 05:58 Differential Comment 08/07/17 23:19 Platelet Estimate Decreased (NORMAL) L 08/11/17 05:58 RBC Morphology Normal 08/10/17 07:09 Anisocytosis (manual) Slight 08/11/17 05:58 PT 14.4 SECONDS (9.7-12.2) H 08/10/17 07:10 INR 1.3 08/10/17 07:10 APTT > 400 SECONDS (21-34) H* D 08/11/17 10:58 D-Dimer, Quantitative 1345 ng/mlDDU (0-243) H 08/07/17 23:19 Sodium 131 mmol/L (132-148) L 08/11/17 05:58 Potassium 4.8 mmol/L (3.6-5.2) 08/11/17 05:58 Chloride 90 mmol/L (98-107) L 08/11/17 05:58 Carbon Dioxide 23 mmol/L (22-30) 08/11/17 05:58 Anion Gap 22 (10-20) H 08/11/17 05:58 BUN 67 mg/dL (9-20) H 08/11/17 05:58 Creatinine 6.6 mg/dL (0.8-1.5) H 08/11/17 05:58 Est GFR ( Amer) 10 08/11/17 05:58 Est GFR (Non-Af Amer) 8 08/11/17 05:58 POC Glucose (mg/dL) 200 mg/dL (65-110) H 08/11/17 16:35 Random Glucose 304 mg/dL (75-110) H 08/11/17 05:58 Hemoglobin A1c 9.7 % (4.2-6.5) H 08/10/17 07:10 Calcium 7.7 mg/dl (8.6-10.4) L 08/11/17 05:58 Magnesium 2.3 mg/dL (1.6-2.3) 08/11/17 05:58 Total Bilirubin 0.8 mg/dL (0.2-1.3) 08/11/17 05:58 AST 47 U/L (17-59) 08/11/17 05:58 ALT 58 U/L (21-72) 08/11/17 05:58 Alkaline Phosphatase 92 U/L (38-126) 08/11/17 05:58 Troponin I 0.2620 ng/mL (0.00-0.120) H* 08/08/17 19:45 NT-Pro-B Natriuret Pep 56103 pg/mL (0-900) H 08/07/17 23:19 Total Protein 5.9 g/dL (6.3-8.3) L 08/11/17 05:58 Albumin 3.3 g/dL (3.5-5.0) L 08/11/17 05:58 Globulin 2.6 gm/dL (2.2-3.9) 08/11/17 05:58 Albumin/Globulin Ratio 1.3 (1.0-2.1) 08/11/17 05:58 - Hospital Course Hospital Course: HPI Patient is a 82 year old male with a past medical history with a past medical history of Asthma, COPD, CHF, DM, HTN, Hypothyroidism and ESRD on HD. Patient is presenting to the emergency room tonight due to shortness of breath over the past two months. The shortness of breath has been accompanied by a productive cough. The cough produces yellowish phlegm. He denies missing any dialysis treatments. The patient is speaking in full sentences and resting comfortably in bed stating he feels well except for the shortness of breath. Denies fevers, chills, nausea, vomiting, diarrhea, constipation, chest pain, abdominal pain, headache, lightheadedness, dizziness, numbness or tingling. Patient had elevated troponins, echo showed low EF and poor ventricular wall motion, and was seen by Dr. 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 Patient sent to [facility] [place] by Dr. Garcia for CABG and evaluation for life vest. - Date & Time of H&P Date of H&P: 08/12/17 Time of H&P: 13:52 Discharge Exam - Head Exam Head Exam: NORMAL INSPECTION - Eye Exam Eye Exam: EOMI, Normal appearance - ENT Exam ENT Exam: Mucous Membranes Moist - Neck Exam Neck exam: Full Rom - Respiratory Exam Respiratory Exam: Clear to PA & Lateral, NORMAL BREATHING PATTERN. absent: Accessory Muscle Use - Cardiovascular Exam Cardiovascular Exam: REGULAR RHYTHM, +S1, +S2 - GI/Abdominal Exam GI & Abdominal Exam: Normal Bowel Sounds, Soft - Extremities Exam Extremities exam: full ROM - Back Exam Back exam: FULL ROM - Neurological Exam Neurological exam: Alert, CN II-XII Intact, Reflexes Normal - Psychiatric Exam Psychiatric exam: Normal Affect, Normal Mood - Skin Skin Exam: Dry, Intact, Normal Color, Warm Discharge Plan - Follow Up Plan Condition: STABLE Disposition: Trans to Other Acute Care Hosp Instructions: Heart Failure, Adult (DC), Pleural Effusion (DC), End Stage Kidney Disease (DC), Dialysis and Diet Additional Instructions: patient to be discharged to [facility] [place] on heparin as per protocol once bed is available and after patient has dialysis 08/11 <Nurys Justice - Last Filed: 08/12/17 15:36> Provider - Provider Date of Admission: 08/08/17 03:16 Attending physician: Nurys Justice MD Hospital Course - Lab Results Lab Results: Most Recent Lab Values WBC 11.6 K/uL (4.8-10.8) H 08/11/17 05:58 RBC 3.48 Mil/uL (4.40-5.90) L 08/11/17 05:58 Hgb 11.5 g/dL (12.0-18.0) L 08/11/17 05:58 Hct 33.9 % (35.0-51.0) L 08/11/17 05:58 MCV 97.3 fL (80.0-94.0) H 08/11/17 05:58 MCH 33.1 pg (27.0-31.0) H 08/11/17 05:58 MCHC 34.1 g/dL (33.0-37.0) 08/11/17 05:58 RDW 14.5 % (11.5-14.5) 08/11/17 05:58 Plt Count 94 K/uL (130-400) L 08/11/17 05:58 MPV 10.2 fL (7.2-11.7) 08/11/17 05:58 Neut % (Auto) 89.0 % (50.0-75.0) H 08/11/17 05:58 Lymph % (Auto) 4.5 % (20.0-40.0) L 08/11/17 05:58 [place] % (Auto) 6.4 % (0.0-10.0) 08/11/17 05:58 Eos % (Auto) 0.0 % (0.0-4.0) 08/11/17 05:58 Baso % (Auto) 0.1 % (0.0-2.0) 08/11/17 05:58 Neut # (Auto) 10.3 K/uL (1.8-7.0) H 08/11/17 05:58 Lymph # (Auto) 0.5 K/uL (1.0-4.3) L 08/11/17 05:58 [place] # (Auto) 0.7 K/uL (0.0-0.8) 08/11/17 05:58 Eos # (Auto) 0.0 K/uL (0.0-0.7) 08/11/17 05:58 Baso # (Auto) 0.0 K/uL (0.0-0.2) 08/11/17 05:58 Neutrophils % (Manual) 91 % (50-75) H 08/11/17 05:58 Band Neutrophils % 1 % (0-2) 08/11/17 05:58 Lymphocytes % (Manual) 4 % (20-40) L 08/11/17 05:58 Monocytes % (Manual) 4 % (0-10) 08/11/17 05:58 Differential Comment 08/07/17 23:19 Platelet Estimate Decreased (NORMAL) L 08/11/17 05:58 RBC Morphology Normal 08/10/17 07:09 Anisocytosis (manual) Slight 08/11/17 05:58 PT 14.4 SECONDS (9.7-12.2) H 08/10/17 07:10 INR 1.3 08/10/17 07:10 APTT > 400 SECONDS (21-34) H* 08/11/17 20:02 D-Dimer, Quantitative 1345 ng/mlDDU (0-243) H 08/07/17 23:19 Sodium 131 mmol/L (132-148) L 08/11/17 05:58 Potassium 4.8 mmol/L (3.6-5.2) 08/11/17 05:58 Chloride 90 mmol/L (98-107) L 08/11/17 05:58 Carbon Dioxide 23 mmol/L (22-30) 08/11/17 05:58 Anion Gap 22 (10-20) H 08/11/17 05:58 BUN 67 mg/dL (9-20) H 08/11/17 05:58 Creatinine 6.6 mg/dL (0.8-1.5) H 08/11/17 05:58 Est GFR ( Amer) 10 08/11/17 05:58 Est GFR (Non-Af Amer) 8 08/11/17 05:58 POC Glucose (mg/dL) 200 mg/dL (65-110) H 08/11/17 16:35 Random Glucose 304 mg/dL (75-110) H 08/11/17 05:58 Hemoglobin A1c 9.7 % (4.2-6.5) H 08/10/17 07:10 Calcium 7.7 mg/dl (8.6-10.4) L 08/11/17 05:58 Magnesium 2.3 mg/dL (1.6-2.3) 08/11/17 05:58 Total Bilirubin 0.8 mg/dL (0.2-1.3) 08/11/17 05:58 AST 47 U/L (17-59) 08/11/17 05:58 ALT 58 U/L (21-72) 08/11/17 05:58 Alkaline Phosphatase 92 U/L (38-126) 08/11/17 05:58 Troponin I 0.2620 ng/mL (0.00-0.120) H* 08/08/17 19:45 NT-Pro-B Natriuret Pep 31476 pg/mL (0-900) H 08/07/17 23:19 Total Protein 5.9 g/dL (6.3-8.3) L 08/11/17 05:58 Albumin 3.3 g/dL (3.5-5.0) L 08/11/17 05:58 Globulin 2.6 gm/dL (2.2-3.9) 08/11/17 05:58 Albumin/Globulin Ratio 1.3 (1.0-2.1) 08/11/17 05:58 Attending/Attestation - Attestation I have personally seen and examined this patient.: Yes I have fully participated in the care of the patient.: Yes I have reviewed all pertinent clinical information, including history, physical exam and plan: Yes Notes (Text): 82M with past medical history of Asthma, copd, chf, dm, htn, hypothyroidism and ESRD on HD via avf presents with shortness of breath, hoarse voice x 2 months.Patient had elevated troponins and echo showed low EF and poor ventricular wall motion. patient was seen by Dr. 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 Patient sent to [facility] [place] by Dr. Garcia for CABG and evaluation for life vest.
[2017-08-11 19:37] VITALS: BP 121/63
[2017-08-11 19:46] VITALS: PULSE 94; TEMP 97.7; O2SAT 97
--- NOTE | 2017-08-11 23:09 | CP.PCM.PN ---
Subjective - Date & Time of Evaluation Date of Evaluation: 08/11/17 Time of Evaluation: 10:20 - Subjective Subjective: Patient seen and evaluated Denies chest pain and dyspnea D/W Family and the patient and discussed the need for CABG Patient agreed and will be transferred to [facility] [place] for CABG Objective - Vital Signs/Intake and Output Vital Signs (last 24 hours): Temp Pulse Resp BP Pulse Ox 97.7 F 94 H 18 121/63 97 08/11/17 19:43 08/11/17 19:43 08/11/17 19:43 08/11/17 19:43 08/11/17 19:43 - Labs Labs: 08/11/17 05:58 08/11/17 05:58 PT 14.4 SECONDS (9.7-12.2) H 08/10/17 07:10 INR 1.3 08/10/17 07:10 APTT > 400 SECONDS (21-34) H* 08/11/17 20:02
== END 2017-08-11 20:34 | disposition short-term general hospital (02) | DRG 286 ==
LOC: C.ER 21:50 → C.9E 08-08 03:16 → C.5S 08-08 03:43
PROVIDERS: ADMIT Internal Medicine; ATTEND Internal Medicine
PROC: 5A1D70Z Performance of Urinary Filtration, Intermittent, Less than 6 Hours Per Day (ICD-10-PCS; principal; 2017-08-09)
PROC: 4A023N7 Measurement of Cardiac Sampling and Pressure, Left Heart, Percutaneous Approach (ICD-10-PCS; 2017-08-10)
PROC: B211YZZ Fluoroscopy of Multiple Coronary Arteries using Other Contrast (ICD-10-PCS; 2017-08-10)
PROC: B215YZZ Fluoroscopy of Left Heart using Other Contrast (ICD-10-PCS; 2017-08-10)
DX: I25.10 Atherosclerotic heart disease of native coronary artery without angina pectoris (principal); N18.6 End stage renal disease; I13.2 Hypertensive heart and chronic kidney disease with heart failure and with stage 5 chronic kidney disease, or end stage renal disease; E11.22 Type 2 diabetes mellitus with diabetic chronic kidney disease; E11.65 Type 2 diabetes mellitus with hyperglycemia; I27.20 Pulmonary hypertension, unspecified; J44.1 Chronic obstructive pulmonary disease with (acute) exacerbation; J98.11 Atelectasis; I25.5 Ischemic cardiomyopathy; I50.9 Heart failure, unspecified; Z99.2 Dependence on renal dialysis; Z79.4 Long term (current) use of insulin; E03.9 Hypothyroidism, unspecified

== ENCOUNTER 2018-05-31 12:31 | Observation (INO) | payer MEDICARE ==
[2018-05-31 12:31] VITALS: BMI 25.6
[2018-05-31 13:04] LABS: BASO # 0.1 K/uL (0.0-0.2); EOS # 0.3 K/uL (0.0-0.7); EOS % 3.5 % (0.0-4.0); HEMOGLOBIN 12.8 g/dL (12.0-18.0); LYMPH # 2.9 K/uL (1.0-4.3); LYMPH % 38.7 % (20.0-40.0); MEAN CELL VOLUME 99.5 fL (80.0-94.0); MEAN CORPUSCULAR HEMOGLOBIN 35.2 pg (27.0-31.0); MEAN CORPUSCULAR HGB CONC 35.4 g/dL (33.0-37.0); MEAN PLATELET VOLUME 7.5 fL (7.2-11.7); MONO # 0.6 K/uL (0.0-0.8); MONO % 7.7 % (0.0-10.0); NEUT # 3.6 K/uL (1.8-7.0); NEUT % 49.1 % (50.0-75.0); NRBC % 0.1 % (0.0-2.0); RBC 3.63 Mil/uL (4.40-5.90); RED CELL DISTRIBUTION WIDTH 13.6 % (11.5-14.5); WHITE BLOOD COUNT 7.4 K/uL (4.8-10.8)
[2018-05-31 13:12] LABS: INR 1.1; PROTHROMBIN TIME 12.5 SECONDS (9.7-12.2)
[2018-05-31 13:20] LABS: ALB/GLOB RATIO 1.5 (1.0-2.1); ALBUMIN 4.2 g/dL (3.5-5.0); ALT/SGPT 21 U/L (21-72); AST/SGOT 19 U/L (17-59); BLOOD UREA NITROGEN 59 mg/dL (9-20); CALCIUM 8.9 mg/dl (8.6-10.4); GFR NON-AFRICAN AMERICAN 17
[2018-05-31 13:32] LABS: B-TYPE NATRIURETIC PEPTIDE 1350 pg/mL (0-900)
--- NOTE | 2018-05-31 14:31 | RAD ---
HISTORY: chest pain COMPARISON: Chest x-ray performed 08/08/17 TECHNIQUE: Chest, one view. FINDINGS: LUNGS: Mild biapical pleural thickening. No focal consolidation. Please note that chest x-ray has limited sensitivity for the detection of pulmonary masses. PLEURA: No significant pleural effusion identified. No definite pneumothorax . CARDIOVASCULAR: Heart size appears within normal limits. Dense atherosclerotic calcifications of the aorta. Median sternotomy wires with evidence of CABG. Cardiac valve prosthesis. OSSEOUS STRUCTURES: Degenerative changes. VISUALIZED UPPER ABDOMEN: Unremarkable. OTHER FINDINGS: None. IMPRESSION: No focal consolidation. Additional findings as above.
--- NOTE | 2018-05-31 15:34 | CP.PCM.HP ---
<Roger Elizondo DO - Last Filed: 05/31/18 16:42> Meds Allergies/Adverse Reactions: Allergies Allergy/AdvReac Type Severity Reaction Status Date / Time No Known Allergies Allergy Verified 05/31/18 12:51 Results - Vital Signs Recent Vital Signs: Last Vital Signs Temp 97.5 F L 05/31/18 16:18 Pulse 76 05/31/18 15:22 Resp 16 05/31/18 12:46 BP 145/66 05/31/18 15:22 Pulse Ox 100 05/31/18 15:22 - Labs Result Diagrams: 05/31/18 12:59 05/31/18 12:59 Labs: Laboratory Results - last 24 hr 05/31/18 05/31/18 05/31/18 12:59 12:59 12:59 WBC 7.4 RBC 3.63 L Hgb 12.8 Hct 36.1 MCV 99.5 H D MCH 35.2 H MCHC 35.4 RDW 13.6 Plt Count 193 MPV 7.5 Neut % (Auto) 49.1 L Lymph % (Auto) 38.7 [place] % (Auto) 7.7 Eos % (Auto) 3.5 Baso % (Auto) 1.0 Neut # (Auto) 3.6 Lymph # (Auto) 2.9 [place] # (Auto) 0.6 Eos # (Auto) 0.3 Baso # (Auto) 0.1 PT 12.5 H INR 1.1 APTT 34 Sodium 134 Potassium 4.5 Chloride 94 L Carbon Dioxide 29 Anion Gap 16 BUN 59 H Creatinine 3.4 H Est GFR ( Amer) 21 Est GFR (Non-Af Amer) 17 Random Glucose 181 H D Calcium 8.9 Total Bilirubin 0.6 AST 19 ALT 21 D Alkaline Phosphatase 91 Total Creatine Kinase 41 L Troponin I < 0.0120 NT-Pro-B Natriuret Pep 1350 H Total Protein 7.0 Albumin 4.2 Globulin 2.8 Albumin/Globulin Ratio 1.5 <Rosalva Rowe - Last Filed: 05/31/18 21:32> History of Present Illness - History of Present Illness History of Present Illness: H&P for Hospitalist service CC: Chest Pain HPI: 83 year old male with PMHx of CHF, CAD with hx CABG 07/2017, DM, ESRD on HD MWF, and hypothyroidism presents to ED complaining of chest pain last night. Patient states he has 3-4 nighttime episodes of chest pain per week for the past 6 months, however yesterday's episode was so severe that he could not sleep. Patient usually takes an unknown medication to alleviate the chest pain, however he ran out yesterday. Pain is described as sharp substernal and across the chest. The pain lasts for hours, sometimes throughout the entire night. It is not associated with exertion. Episodes are sometimes associated with palpitations. Denies shortness of breath, nausea, reflux, vomiting, fever, chills, LE swelling and any other associated symptoms. Patient last saw his mustanger, Dr. Garcia, 2 months ago, however has not informed him that he is experiencing chest pain. Patient's last dialysis session was on Wednesday due to being a holiday week. PMHx: CHF, CAD, DM, ESRD on HD MWF ([facility] in [place]) PSHx: CABG 07/2017, L AV fistula Meds: Eliquis 2.5 daily, Asa 81 daily, Coreg 3.125 daily, Glargine 30 SC HS, Levothyroxine 50mcg daily, Lisinopril 20mg daily, Crestor 10mg Sevelamir 800 TID Allergies: NKDA FamHx: Father [place] in 60s, Mother had DM, Son at 42 years old from DM and multiple co-morbidities SocHx: Denies tobacco, alcohol, drugs. Lives with his son Jose and his . Proxy: Son, Jose Chavez, Code status: Full code PMD: Dr. Biggs, Cardio: Dr. Garcia Review of Systems: -Gen: No fever, No chills, No headache, No lethargy, No weakness. -HEENT: No dizziness, No change in vision, No change in hearing, No sore throat, No dysphagia, No nasal congestion, No mucous. -Cardio: +chest pain, + palpitations, No lower extremity edema, No orthopnea. -Resp: No cough, No dyspnea, No hemoptysis, No wheezing, No pain on inspiration. -GI: No abdominal pain, No nausea/vomiting, No diarrhea/constipation, No hematochezia, No hematemesis. -: No dysuria, No urinary freq, No incontinence, No hematuria, No change in urinary stream. -MSK: No back pain, No muscle weakness, No radiating pain. -Skin: No itching, No rash, No lesions. -Neuro: No confusion, No numbness, No tingling, No focal weakness, No radicular pain, No syncope. -Psych: No anxiety, No depression, No H/I, No S/I, No hallucinations. Present on Admission - Present on Admission Any Indicators Present on Admission: No History of DVT/PE: No History of Uncontrolled Diabetes: No Urinary Catheter: No Decubitus Ulcer Present: No Past Patient History - Infectious Disease Hx of Infectious Diseases: None - Past Medical History & Family History Past Medical History?: Yes - Past Social History Smoking Status: Never Smoked - CARDIAC Hx Congestive Heart Failure: Yes Hx Hypercholesterolemia: Yes Hx Hypertension: Yes - PULMONARY Hx Chronic Obstructive Pulmonary Disease (COPD): Yes - NEUROLOGICAL Hx Neurological Disorder: No - HEENT Hx HEENT Problems: Yes Hx Cataracts: Yes (with surgery done and IOL) - RENAL Hx Dialysis: Yes (M,W,F) Type of Dialysis Access: LEFT AV FISTULA Date of Last Dialysis Treatment: 05/29/18 Hx Renal Failure: Yes (ESRD, CKD) - ENDOCRINE/METABOLIC Hx Hypothyroidism: Yes - HEMATOLOGICAL/ONCOLOGICAL Hx Anemia: Yes - INTEGUMENTARY Hx Dermatological Problems: No - GASTROINTESTINAL Hx Gastrointestinal Disorders: No - GENITOURINARY/GYNECOLOGICAL Hx Genitourinary Disorders: No - PSYCHIATRIC Hx Psychophysiologic Disorder: No Hx Substance Use: No - SURGICAL HISTORY Hx Surgeries: Yes Hx Open Heart Surgery: Yes Hx Vascular Access Device: Yes Other/Comment: L arm AV Fistula-2 months ago. Insertion of Perma Cath to R chest 2 months ago - ANESTHESIA Hx Anesthesia: Yes Hx Anesthesia Reactions: No Hx Malignant Hyperthermia: No Physical Exam - Constitutional Appears: No Acute Distress - Head Exam Head Exam: ATRAUMATIC, NORMOCEPHALIC - Eye Exam Eye Exam: EOMI, PERRL - ENT Exam ENT Exam: Mucous Membranes Moist - Neck Exam Neck exam: Positive for: Full Rom, Normal Inspection Additional comments: No JVD - Respiratory Exam Respiratory Exam: Clear to Auscultation Bilateral, NORMAL BREATHING PATTERN. absent: Chest Wall Tenderness, Rales, Rhonchi, Wheezes, Respiratory Distress - Cardiovascular Exam Cardiovascular Exam: REGULAR RHYTHM, +S1, +S2 - GI/Abdominal Exam GI & Abdominal Exam: Normal Bowel Sounds, Soft. absent: Distended, Guarding, Rebound, Tenderness - Extremities Exam Extremities exam: Positive for: full ROM, normal capillary refill, pedal pulses present. Negative for: calf tenderness, pedal edema, tenderness Additional comments: L AV fistula - Neurological Exam Neurological exam: Alert, CN II-XII Intact, Oriented x3 - Psychiatric Exam Psychiatric exam: Normal Affect, Normal Mood - Skin Skin Exam: Dry, Normal Color, Warm Additional comments: Sternotomy scar noted. Results - Vital Signs Recent Vital Signs: Last Vital Signs Temp 97.4 F L 05/31/18 12:46 Pulse 76 05/31/18 15:22 Resp 16 05/31/18 12:46 BP 145/66 05/31/18 15:22 Pulse Ox 100 05/31/18 15:22 - Labs Result Diagrams: 05/31/18 12:59 05/31/18 12:59 Labs: Laboratory Results - last 24 hr 05/31/18 05/31/18 05/31/18 12:59 12:59 12:59 WBC 7.4 RBC 3.63 L Hgb 12.8 Hct 36.1 MCV 99.5 H D MCH 35.2 H MCHC 35.4 RDW 13.6 Plt Count 193 MPV 7.5 Neut % (Auto) 49.1 L Lymph % (Auto) 38.7 [place] % (Auto) 7.7 Eos % (Auto) 3.5 Baso % (Auto) 1.0 Neut # (Auto) 3.6 Lymph # (Auto) 2.9 [place] # (Auto) 0.6 Eos # (Auto) 0.3 Baso # (Auto) 0.1 PT 12.5 H INR 1.1 APTT 34 Sodium 134 Potassium 4.5 Chloride 94 L Carbon Dioxide 29 Anion Gap 16 BUN 59 H Creatinine 3.4 H Est GFR ( Amer) 21 Est GFR (Non-Af Amer) 17 Random Glucose 181 H D Calcium 8.9 Total Bilirubin 0.6 AST 19 ALT 21 D Alkaline Phosphatase 91 Total Creatine Kinase 41 L Troponin I < 0.0120 NT-Pro-B Natriuret Pep 1350 H Total Protein 7.0 Albumin 4.2 Globulin 2.8 Albumin/Globulin Ratio 1.5 Assessment & Plan - Assessment and Plan (Free Text) Plan: 83 year old male with PMHx of CHF, CAD with hx CABG 07/2017, DM, ESRD on HD MWF, and hypothyroidism presents to ED complaining of chest pain. Chest Pain r/o ACS Hx CAD s/p CABG (07/2017) EKG: NSR at 92 bpm, abnormal QRS-T angle Troponin neg x2, follow up 3rd F/u Hgb A1C F/u TSH, Free T4 F/u Lipid panel F/u echo Aspirin 81mg PO daily Crestor 10mg PO HS Oxygen PRN Sublingual nitro PRN chest pain Cardio, Dr. Garcia, consulted. Help appreciated. -CTA chest to r/o thoracic aortic aneurysm Chronic Systolic Heart Failure- stable ProBNP: 1350, [place] [id number] during 07/2017 admission Echo 07/2017: EF 20-25% F/u Repeat echo Coreg 3.125mg PO daily Troponin neg x2, follow up 3rd Coreg 3.125 PO daily, home med Eliquis 2.5mg PO BID, home med Cardio, Dr. Garcia, consulted. Help appreciated. Previous admission 07/2017 ESRD on HD MWF ([facility] in [place]) Last dialysis session was on Tuesday 05/29 due to holiday week Renvela 800mg PO TIDCC, home med Nephrology consulted, Dr. Cain. Help appreciated. DM f/u Hgb A1c RISS Glargine 30units HS, home med Lisinopril 20mg PO daily, home med Accuchecks ACHS Hypoglycemia protocol HTN Lisinopril 20mg PO daily, home med Coreg 3.125 PO daily, home med Hypothyroidism f/u TSH, Free T4 Levothyroxine 50mcg PO daily, home med Prophylaxis SCDs Eliquis 2.5mg PO Daily, home med No GI ppx indicated HHD/Renal/consistent carbohydrate diet Case discussed with Dr. Justice. Rosalva Rowe, PGY-1.
[2018-05-31] MEDS ORDERED: Dextrose 50% SYRINGE Inj (50 ml) IV PRN (16:33)
[2018-05-31] MEDS ORDERED: Glucagon Recombinant 1 mg Inj IM PRN (16:33)
--- NOTE | 2018-05-31 17:06 | C.PDOC ---
History Of Present Illness 83 year old male presents to the emergency department with complaints of intermittent chest pain for the past couple of days, worse today. Patient denies shortness of breath, cough, and fever. Patient states that he was admitted to [facility] 7 months ago for chest pain, and transferred for a CABG at that time. Patient states that he has been compliant with his medications. Chief Complaint (Nursing): Chest Pain History Per: Patient History/Exam Limitations: no limitations Onset/Duration Of Symptoms: Days, Intermittent Episodes Quality: "Pain" Associated Symptoms: denies: Dyspnea, Other (cough, fever) Past Medical History Vital Signs: Last Vital Signs Temp 97.3 F L 05/31/18 16:53 Pulse 84 05/31/18 16:53 Resp 20 05/31/18 16:53 BP 169/71 H 05/31/18 16:53 Pulse Ox 100 05/31/18 16:53 - Medical History PMH: Anemia, Asthma, CHF, COPD, Diabetes, HTN, Hypercholesterolemia, Hypothyroidism, Peripheral Edema, End Stage Renal Disease, Chronic Kidney Disease Surgical History: CABG - [facility] (08/08/17) ASSISTANCE WITH RESPIRATORY VENTILATION, 24-96 HRS, CPAP (09/04/16) BYPASS L BRACH ART TO UP ARM VEIN W AUTOL VN, OPEN (09/04/16) FLUOROSCOPY OF LEFT HEART USING OTHER CONTRAST (08/08/17) FLUOROSCOPY OF MULTIPLE CORONARY ARTERIES USING OTH CONTRAST (08/08/17) INSERTION OF ENDOTRACHEAL AIRWAY INTO TRACHEA, VIA OPENING (09/04/16) INSERTION OF INFUSION DEV INTO SUP VENA CAVA, PERC APPROACH (09/04/16) MEASURE OF CARDIAC SAMPL & PRESSURE, L HEART, PERC APPROACH (08/08/17) PERFORMANCE OF URINARY FILTRATION, MULTIPLE (12/08/16) PLAIN RADIOGRAPHY OF LEFT HEART USING OTHER CONTRAST (09/04/16) PLAIN RADIOGRAPHY OF MULT COR ART USING OTH CONTRAST (09/04/16) RESPIRATORY VENTILATION, GREATER THAN 96 CONSECUTIVE HOURS (09/04/16) REVISION OF SYNTHETIC SUBSTITUTE IN UP VEIN, OPEN APPROACH (12/08/16) Family History: States: Unknown Family Hx - Social History Hx Alcohol Use: Yes Hx Substance Use: No - Immunization History Hx Tetanus Toxoid Vaccination: Yes Hx Influenza Vaccination: Yes Hx Pneumococcal Vaccination: Yes Review Of Systems Except As Marked, All Systems Reviewed And Found Negative. Constitutional: Negative for: Fever Cardiovascular: Positive for: Chest Pain Respiratory: Negative for: Cough, Shortness of Breath Gastrointestinal: Negative for: Nausea, Vomiting, Abdominal Pain, Diarrhea Physical Exam - Physical Exam Appears: Well, Non-toxic, No Acute Distress Skin: Normal Color, Warm, Dry Head: Atraumatic, Normacephalic Eye(s): bilateral: Normal Inspection, PERRL, EOMI Nose: Normal Oral Mucosa: Moist Neck: Normal, Supple Chest: Symmetrical, No Tenderness, Other (well-healed mid-sternal scar) Cardiovascular: Rhythm Regular, No Murmur Respiratory: Normal Breath Sounds, No Rales, No Rhonchi, No Wheezing Gastrointestinal/Abdominal: Normal Exam, Soft, No Tenderness, No Guarding, No Rebound Extremity: Other (left-side AV graft) Neurological/Psych: Oriented x3, Normal Speech, Normal Cognition ED Course And Treatment - Laboratory Results Result Diagrams: 05/31/18 12:59 05/31/18 12:59 ECG: Interpreted By Me ECG Rhythm: Sinus Rhythm Interpretation Of ECG: Flattened T-wave in the lateral leads. Rate From EC O2 Sat by Pulse Oximetry: 100 (RA) Pulse Ox Interpretation: Normal Medical Decision Making Medical Decision Making: Plan: EKG Chemistry Bloodwork CXR Aspirin 325mg PO Disposition - Disposition Disposition: HOSPITALIZED Disposition Time: 14:15 Condition: STABLE - Clinical Impression Clinical Impression: Chest pain - Scribe Statement The provider has reviewed the documentation as recorded by the Scribe (Leander Hernandez) Provider Attestation: All medical record entries made by the Scribe were at my direction and personally dictated by me. I have reviewed the chart and agree that the record accurately reflects my personal performance of the history, physical exam, medical decision making, and the department course for this patient. I have also personally directed, reviewed, and agree with the discharge instructions and disposition.
[2018-05-31] MEDS: (Novolin R) Insulin Human Regular 100 units/ml vial SC SCH (21:25)
--- NOTE | 2018-05-31 21:51 | CP.PCM.CON ---
History of Present Illness - History of Present Illness History of Present Illness: CC: Chest Pain 83 year old male presents to [facility] with complaints of intermittent chest pain for the past couple of days, worse today. Patient denies shortness of breath, cough, and fever. Patient states that he was admitted to this hospital 7 months ago for chest pain, and transferred for a CABG at that time. Patient states that he has been compliant with his medications. Chief Complaint (Nursing): Chest Pain History Per: Patient History/Exam Limitations: no limitations Onset/Duration Of Symptoms: Days, Intermittent Episodes Quality: "Pain" Associated Symptoms: denies: Dyspnea, Other (cough, fever) Past Medical History Vital Signs: Last Vital Signs Temp 97.3 F L 05/31/18 16:53 Pulse 84 05/31/18 16:53 Resp 20 05/31/18 16:53 BP 169/71 H 05/31/18 16:53 Pulse Ox 100 05/31/18 16:53 - Medical History PMH: Anemia, Asthma, CHF, COPD, Diabetes, HTN, Hypercholesterolemia, Hypothyroidism, Peripheral Edema, End Stage Renal Disease, Chronic Kidney Disease Surgical History: CABG - [facility] (08/08/17) ASSISTANCE WITH RESPIRATORY VENTILATION, 24-96 HRS, CPAP (09/04/16) BYPASS L BRACH ART TO UP ARM VEIN W AUTOL VN, OPEN (09/04/16) FLUOROSCOPY OF LEFT HEART USING OTHER CONTRAST (08/08/17) FLUOROSCOPY OF MULTIPLE CORONARY ARTERIES USING OTH CONTRAST (08/08/17) INSERTION OF ENDOTRACHEAL AIRWAY INTO TRACHEA, VIA OPENING (09/04/16) INSERTION OF INFUSION DEV INTO SUP VENA CAVA, PERC APPROACH (09/04/16) MEASURE OF CARDIAC SAMPL & PRESSURE, L HEART, PERC APPROACH (08/08/17) PERFORMANCE OF URINARY FILTRATION, MULTIPLE (12/08/16) PLAIN RADIOGRAPHY OF LEFT HEART USING OTHER CONTRAST (09/04/16) PLAIN RADIOGRAPHY OF MULT COR ART USING OTH CONTRAST (09/04/16) RESPIRATORY VENTILATION, GREATER THAN 96 CONSECUTIVE HOURS (09/04/16) REVISION OF SYNTHETIC SUBSTITUTE IN UP VEIN, OPEN APPROACH (12/08/16) Family History: States: Unknown Family Hx - Social History Hx Alcohol Use: Yes Hx Substance Use: No - Immunization History Hx Tetanus Toxoid Vaccination: Yes Hx Influenza Vaccination: Yes Hx Pneumococcal Vaccination: Yes Review Of Systems Except As Marked, All Systems Reviewed And Found Negative. Constitutional: Negative for: Fever Cardiovascular: Positive for: Chest Pain Respiratory: Negative for: Cough, Shortness of Breath Gastrointestinal: Negative for: Nausea, Vomiting, Abdominal Pain, Diarrhea Physical Exam - Physical Exam Appears: Well, Non-toxic, No Acute Distress Skin: Normal Color, Warm, Dry Head: Atraumatic, Normacephalic Eye(s): bilateral: Normal Inspection, PERRL, EOMI Nose: Normal Oral Mucosa: Moist Neck: Normal, Supple Chest: Symmetrical, No Tenderness, Other (well-healed mid-sternal scar) Cardiovascular: Rhythm Regular, No Murmur Respiratory: Normal Breath Sounds, No Rales, No Rhonchi, No Wheezing Gastrointestinal/Abdominal: Normal Exam, Soft, No Tenderness, No Guarding, No Rebound Extremity: Other (left-side AV graft) Neurological/Psych: Oriented x3, Normal Speech, Normal Cognition Past Patient History - Infectious Disease Hx of Infectious Diseases: None - Past Medical History & Family History Past Medical History?: Yes - Past Social History Smoking Status: Never Smoked - CARDIAC Hx Congestive Heart Failure: Yes Hx Hypercholesterolemia: Yes Hx Hypertension: Yes - PULMONARY Hx Chronic Obstructive Pulmonary Disease (COPD): Yes - NEUROLOGICAL Hx Neurological Disorder: No - HEENT Hx HEENT Problems: Yes Hx Cataracts: Yes (with surgery done and IOL) - RENAL Hx Dialysis: Yes (M,W,F) Type of Dialysis Access: LEFT AV FISTULA Date of Last Dialysis Treatment: 05/29/18 Hx Renal Failure: Yes (ESRD, CKD) - ENDOCRINE/METABOLIC Hx Hypothyroidism: Yes - HEMATOLOGICAL/ONCOLOGICAL Hx Anemia: Yes - INTEGUMENTARY Hx Dermatological Problems: No - GASTROINTESTINAL Hx Gastrointestinal Disorders: No - GENITOURINARY/GYNECOLOGICAL Hx Genitourinary Disorders: No - PSYCHIATRIC Hx Psychophysiologic Disorder: No Hx Substance Use: No - SURGICAL HISTORY Hx Surgeries: Yes Hx Open Heart Surgery: Yes Hx Vascular Access Device: Yes Other/Comment: L arm AV Fistula-2 months ago. Insertion of Perma Cath to R chest 2 months ago - ANESTHESIA Hx Anesthesia: Yes Hx Anesthesia Reactions: No Hx Malignant Hyperthermia: No Meds Allergies/Adverse Reactions: Allergies Allergy/AdvReac Type Severity Reaction Status Date / Time No Known Allergies Allergy Verified 05/31/18 12:51 - Medications Medications: Current Medications Acetaminophen (Tylenol 325mg Tab) 650 mg PO Q6 PRN PRN Reason: Pain, Mild (1-3) Apixaban (Eliquis) 2.5 mg PO BID [facility] Last Admin: 05/31/18 17:22 Dose: 2.5 mg Aspirin (Aspirin Chewable) 81 mg PO DAILY [facility] Carvedilol (Coreg) 3.125 mg PO BID [facility] Last Admin: 05/31/18 17:22 Dose: 3.125 mg Dextrose (Dextrose 50% Inj) 0 ml IV STAT PRN; Protocol PRN Reason: Hypoglycemia Protocol Dextrose (Glutose 15) 0 gm PO ONCE PRN; Protocol PRN Reason: Hypoglycemia Protocol Glucagon (Glucagen Diagnostic Kit) 0 mg IM STAT PRN; Protocol PRN Reason: Hypoglycemia Protocol Dextrose (Dextrose 5% In Water 1000 Ml) 1,000 mls @ 0 mls/hr IV .Q0M PRN; Protocol PRN Reason: Hypoglycemia Protocol Insulin Glargine (Lantus) 30 unit SC HS [facility] Insulin Human Regular (Novolin R) 0 unit SC ACHS [facility]; Protocol Last Admin: 05/31/18 21:25 Dose: 2 units Levothyroxine Sodium (Synthroid) 50 mcg PO DAILY@0630 [facility] Lisinopril (Zestril) 20 mg PO DAILY [facility] Nitroglycerin (Nitrostat Sl Tab) 0.4 mg SL Q5M PRN PRN Reason: Other, CHEST PAIN Rosuvastatin Calcium (Crestor) 10 mg PO HS [facility] Last Admin: 05/31/18 21:25 Dose: 10 mg Sevelamer Carbonate (Renvela) 800 mg PO TIDCC [facility] Last Admin: 05/31/18 17:22 Dose: 800 mg Results - Vital Signs Recent Vital Signs: Last Vital Signs Temp 97.3 F L 05/31/18 16:53 Pulse 80 05/31/18 18:39 Resp 20 05/31/18 16:53 BP 169/71 H 05/31/18 16:53 Pulse Ox 100 05/31/18 18:59 - Labs Result Diagrams: 05/31/18 12:59 05/31/18 12:59 Labs: Laboratory Results - last 24 hr 05/31/18 05/31/18 05/31/18 12:59 12:59 12:59 WBC 7.4 RBC 3.63 L Hgb 12.8 Hct 36.1 MCV 99.5 H D MCH 35.2 H MCHC 35.4 RDW 13.6 Plt Count 193 MPV 7.5 Neut % (Auto) 49.1 L Lymph % (Auto) 38.7 [place] % (Auto) 7.7 Eos % (Auto) 3.5 Baso % (Auto) 1.0 Neut # (Auto) 3.6 Lymph # (Auto) 2.9 [place] # (Auto) 0.6 Eos # (Auto) 0.3 Baso # (Auto) 0.1 PT 12.5 H INR 1.1 APTT 34 Sodium 134 Potassium 4.5 Chloride 94 L Carbon Dioxide 29 Anion Gap 16 BUN 59 H Creatinine 3.4 H Est GFR ( Amer) 21 Est GFR (Non-Af Amer) 17 POC Glucose (mg/dL) Random Glucose 181 H D Calcium 8.9 Total Bilirubin 0.6 AST 19 ALT 21 D Alkaline Phosphatase 91 Total Creatine Kinase 41 L CK-MB (Mass) Troponin I < 0.0120 NT-Pro-B Natriuret Pep 1350 H Total Protein 7.0 Albumin 4.2 Globulin 2.8 Albumin/Globulin Ratio 1.5 05/31/18 05/31/18 20:02 20:59 WBC RBC Hgb Hct MCV MCH MCHC RDW Plt Count MPV Neut % (Auto) Lymph % (Auto) [place] % (Auto) Eos % (Auto) Baso % (Auto) Neut # (Auto) Lymph # (Auto) [place] # (Auto) Eos # (Auto) Baso # (Auto) PT INR APTT Sodium Potassium Chloride Carbon Dioxide Anion Gap BUN Creatinine Est GFR ( Amer) Est GFR (Non-Af Amer) POC Glucose (mg/dL) 322 H Random Glucose Calcium Total Bilirubin AST ALT Alkaline Phosphatase Total Creatine Kinase 38 L CK-MB (Mass) 1.10 Troponin I < 0.0120 NT-Pro-B Natriuret Pep Total Protein Albumin Globulin Albumin/Globulin Ratio Assessment & Plan - Assessment and Plan (Free Text) Assessment: 83 M with hx of CAD s/p CABG x 2 HTN CRF on HD Chest pain r/o OR Check CTA r/o Aortic aneurysm
[2018-05-31] MEDS ORDERED: (Lantus) Insulin Glargine, Recombinant SC SCH (22:00)
[2018-05-31] MEDS ORDERED: Iodixanol 320 MG/ML 100 ML BOTTLE IV ONE (22:30)
[2018-05-31] MEDS: (Lantus) Insulin Glargine, Recombinant SC SCH (22:53)
[2018-06-01 01:38] LABS: CK-MB 0.92 ng/mL (0.0-3.38)
[2018-06-01] MEDS: Levothyroxine 50 MCG TAB PO SCH (06:09)
--- NOTE | 2018-06-01 07:56 | CP.PCM.PN ---
Subjective - Date & Time of Evaluation Date of Evaluation: 06/01/18 Time of Evaluation: 07:56 - Subjective Subjective: PGY-1 Medicine Progress Note for Dr. Justice Patient was seen and examined at bedside this AM. No acute overnight events reported. Patient doing better, denies any current chest pain, palpitations, shortness of breath, cough. Patient endorses chest pain has been on and off for the past 6 months. Of note, he was admitted back in July for chest pain, transferred for a CABG at that time. No other acute somatic complaints at this time. Objective - Vital Signs/Intake and Output Vital Signs (last 24 hours): Temp Pulse Resp BP Pulse Ox 97.4 F L 78 20 135/59 L 100 05/31/18 23:40 05/31/18 23:53 05/31/18 23:40 05/31/18 23:40 06/01/18 04:00 - Medications Medications: Current Medications Acetaminophen (Tylenol 325mg Tab) 650 mg PO Q6 PRN PRN Reason: Pain, Mild (1-3) Apixaban (Eliquis) 2.5 mg PO BID [facility] Last Admin: 05/31/18 17:22 Dose: 2.5 mg Aspirin (Aspirin Chewable) 81 mg PO DAILY [facility] Carvedilol (Coreg) 3.125 mg PO BID [facility] Last Admin: 05/31/18 17:22 Dose: 3.125 mg Dextrose (Dextrose 50% Inj) 0 ml IV STAT PRN; Protocol PRN Reason: Hypoglycemia Protocol Dextrose (Glutose 15) 0 gm PO ONCE PRN; Protocol PRN Reason: Hypoglycemia Protocol Glucagon (Glucagen Diagnostic Kit) 0 mg IM STAT PRN; Protocol PRN Reason: Hypoglycemia Protocol Dextrose (Dextrose 5% In Water 1000 Ml) 1,000 mls @ 0 mls/hr IV .Q0M PRN; Protocol PRN Reason: Hypoglycemia Protocol Insulin Glargine (Lantus) 30 unit SC HS [facility] Last Admin: 05/31/18 22:53 Dose: 30 units Insulin Human Regular (Novolin R) 0 unit SC ACHS [facility]; Protocol Last Admin: 05/31/18 21:25 Dose: 2 units Levothyroxine Sodium (Synthroid) 50 mcg PO DAILY@0630 [facility] Last Admin: 06/01/18 06:09 Dose: 50 mcg Lisinopril (Zestril) 20 mg PO DAILY [facility] Nitroglycerin (Nitrostat Sl Tab) 0.4 mg SL Q5M PRN PRN Reason: Other, CHEST PAIN Rosuvastatin Calcium (Crestor) 10 mg PO HS [facility] Last Admin: 05/31/18 21:25 Dose: 10 mg Sevelamer Carbonate (Renvela) 800 mg PO TIDCC [facility] Last Admin: 05/31/18 17:22 Dose: 800 mg - Labs Labs: 05/31/18 12:59 05/31/18 12:59 PT 12.5 SECONDS (9.7-12.2) H 05/31/18 12:59 INR 1.1 05/31/18 12:59 APTT 34 SECONDS (21-34) 05/31/18 12:59 - Constitutional Appears: Non-toxic, No Acute Distress - Head Exam Head Exam: ATRAUMATIC, NORMAL INSPECTION, NORMOCEPHALIC - Eye Exam Eye Exam: EOMI, Normal appearance Pupil Exam: NORMAL ACCOMODATION - ENT Exam ENT Exam: Mucous Membranes Moist, Normal Exam - Neck Exam Neck Exam: Full ROM, Normal Inspection. absent: Tenderness - Respiratory Exam Respiratory Exam: Clear to Ausculation Bilateral, NORMAL BREATHING PATTERN. absent: Accessory Muscle Use, Rales, Rhonchi, Wheezes, Respiratory Distress, Stridor - Cardiovascular Exam Cardiovascular Exam: REGULAR RHYTHM, +S1, +S2 - GI/Abdominal Exam GI & Abdominal Exam: Soft, Normal Bowel Sounds. absent: Distended, Firm, Guarding, Rigid, Tenderness, Organomegaly, Rebound - Extremities Exam Extremities Exam: Full ROM, Normal Capillary Refill, Normal Inspection. absent: Calf Tenderness, Pedal Edema Additional comments: L AV fistula - Back Exam Back Exam: NORMAL INSPECTION - Neurological Exam Neurological Exam: Alert, Awake, Oriented x3 - Psychiatric Exam Psychiatric exam: Normal Affect, Normal Mood - Skin Skin Exam: Dry, Intact, Normal Color, Warm Assessment and Plan - Assessment and Plan (Free Text) Assessment: 83 year old male with PMHx of CHF, CAD with hx CABG 07/2017, DM, ESRD on HD MWF, and hypothyroidism presents to ED complaining of chest pain Plan: Chest Pain, r/o ACS Hx CAD s/p CABG (07/2017) Chronic systolic HF, stable -EKG (05/31): NSR at 92 bpm, abnormal QRS-T angle -troponin x3 negative -Thyroid panel wnl -Lipid panel wnl -ProBNP: 1350, [place] [address] during 07/2017 admission -ECHO (07/2017): EF 20-25% -CXR (05/31): Dense atherosclerotic calcification of the aorta. Median sternotomy wires with evidence of CABG. Cardiac valve prosthesis. No focal consolidations. -Cardiology recs (Dr. Garcia) appreciated -f/u ECHO report -CT angiogram (06/01): no evidence of thoracic or upper abdominal aortic aneurysm. 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 The distal extent of the dissection is not included in this exam. There is calcified atherosclerotic plaque, probable ulcerated plaque seen in the upper abdominal aorta. 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 -ASA 81 mg PO daily -Eliquis 2.5 mg PO BID -Crestor 10 mg PO HS -Coreg 3.125mg PO daily ESRD on HD MWF - Pt goes to [facility] in [place] -Last dialysis session was on Tuesday 05/29 due to holiday week -Renvela 800mg PO [facility]IDCC, home med -Nephrology (Dr. Cain) recs appreciated -maintenance HD to be ordered DM -HbA1c: 9.4 -ISS -Lantus 30 units SC -accuchecks ACHS -hypoglycemic protocol HTN -Lisinopril 20mg PO daily -Coreg 3.125 PO daily Hypothyroidism -thyroid panel wnl -Levothyroxine 50mcg PO daily PPx, Diet, Disposition -DVT ppx: SCDs, home eliquis -GI ppx: not indicated -Diet: HHD, renal diet Case discussed with Dr. Reshma Leal DO, PGY-1
[2018-06-01] MEDS: (Novolin R) Insulin Human Regular 100 units/ml vial SC SCH ×4 (08:30→22:43)
[2018-06-01 08:36] LABS: BASO # 0.1 K/uL (0.0-0.2); BASO % 0.8 % (0.0-2.0); EOS # 0.2 K/uL (0.0-0.7); EOS % 2.8 % (0.0-4.0); HEMOGLOBIN 12.1 g/dL (12.0-18.0); LYMPH # 3.1 K/uL (1.0-4.3); LYMPH % 37.3 % (20.0-40.0); MEAN CELL VOLUME 99.7 fL (80.0-94.0); MEAN CORPUSCULAR HEMOGLOBIN 35.1 pg (27.0-31.0); MEAN CORPUSCULAR HGB CONC 35.2 g/dL (33.0-37.0); MEAN PLATELET VOLUME 7.4 fL (7.2-11.7); MONO # 0.7 K/uL (0.0-0.8); NEUT # 4.2 K/uL (1.8-7.0); NEUT % 51.1 % (50.0-75.0); RBC 3.44 Mil/uL (4.40-5.90); RED CELL DISTRIBUTION WIDTH 13.4 % (11.5-14.5); WHITE BLOOD COUNT 8.2 K/uL (4.8-10.8)
[2018-06-01 08:56] LABS: ALB/GLOB RATIO 1.3 (1.0-2.1); ALBUMIN 3.7 g/dL (3.5-5.0); CALCIUM 8.8 mg/dl (8.6-10.4)
[2018-06-01 09:19] LABS: T4 7.2 ug/dL (5.5-11.0)
--- NOTE | 2018-06-01 13:12 | CP.PCM.CON ---
History of Present Illness - History of Present Illness History of Present Illness: 83 yo H male, hx of ESRD, CABG, HTN, DL, presents with atypical chest pain. Pain is not present currently. Pt will receive a w/u to r/o Mi and aneurysm. HD on , , . Last HD on Wednesday. Pt has an AV access. Denies dyspnea. Labs are reviewed. Review of Systems - Constitutional Constitutional: absent: Chills, Fever - EENT Eyes: absent: Change in Vision, Itchy Eyes Nose/Mouth/Throat: absent: Epistaxis, Nasal Congestion - Cardiovascular Cardiovascular: Chest Pain. absent: Dyspnea on Exertion - Respiratory Respiratory: absent: Cough, Dyspnea - Gastrointestinal Gastrointestinal: absent: Constipation, Diarrhea - Musculoskeletal Musculoskeletal: absent: Arthralgias, Myalgias Past Patient History - Infectious Disease Hx of Infectious Diseases: None - Past Medical History & Family History Past Medical History?: Yes - Past Social History Smoking Status: Never Smoked - CARDIAC Hx Congestive Heart Failure: Yes Hx Hypercholesterolemia: Yes Hx Hypertension: Yes Hx Peripheral Edema: Yes - PULMONARY Hx Asthma: Yes Hx Chronic Obstructive Pulmonary Disease (COPD): Yes - NEUROLOGICAL Hx Neurological Disorder: No - HEENT Hx HEENT Problems: Yes Hx Cataracts: Yes (with surgery done and IOL) - RENAL Hx Chronic Kidney Disease: Yes - ENDOCRINE/METABOLIC Hx Hypothyroidism: Yes - HEMATOLOGICAL/ONCOLOGICAL Hx Anemia: Yes - INTEGUMENTARY Hx Dermatological Problems: No - GASTROINTESTINAL Hx Gastrointestinal Disorders: No - GENITOURINARY/GYNECOLOGICAL Hx Genitourinary Disorders: No - PSYCHIATRIC Hx Substance Use: No - SURGICAL HISTORY Hx Coronary Artery Bypass Graft: Yes - ANESTHESIA Hx Anesthesia: Yes Hx Anesthesia Reactions: No Hx Malignant Hyperthermia: No Meds Allergies/Adverse Reactions: Allergies Allergy/AdvReac Type Severity Reaction Status Date / Time No Known Allergies Allergy Verified 05/31/18 12:51 - Medications Medications: Current Medications Acetaminophen (Tylenol 325mg Tab) 650 mg PO Q6 PRN PRN Reason: Pain, Mild (1-3) Apixaban (Eliquis) 2.5 mg PO BID [facility] Last Admin: 06/01/18 11:15 Dose: 2.5 mg Aspirin (Aspirin Chewable) 81 mg PO DAILY [facility] Last Admin: 06/01/18 10:57 Dose: 81 mg Carvedilol (Coreg) 3.125 mg PO BID [facility] Last Admin: 06/01/18 11:15 Dose: 3.125 mg Dextrose (Dextrose 50% Inj) 0 ml IV STAT PRN; Protocol PRN Reason: Hypoglycemia Protocol Dextrose (Glutose 15) 0 gm PO ONCE PRN; Protocol PRN Reason: Hypoglycemia Protocol Glucagon (Glucagen Diagnostic Kit) 0 mg IM STAT PRN; Protocol PRN Reason: Hypoglycemia Protocol Dextrose (Dextrose 5% In Water 1000 Ml) 1,000 mls @ 0 mls/hr IV .Q0M PRN; Protocol PRN Reason: Hypoglycemia Protocol Insulin Glargine (Lantus) 30 unit SC [facility] Last Admin: 05/31/18 22:53 Dose: 30 units Insulin Human Regular (Novolin R) 0 unit SC [facility]; Protocol Last Admin: 06/01/18 12:30 Dose: 2 units Levothyroxine Sodium (Synthroid) 50 mcg PO DAILY@0630 [facility] Last Admin: 06/01/18 06:09 Dose: 50 mcg Lisinopril (Zestril) 20 mg PO DAILY [facility] Last Admin: 06/01/18 11:10 Dose: 20 mg Nitroglycerin (Nitrostat Sl Tab) 0.4 mg SL Q5M PRN PRN Reason: Other, CHEST PAIN Rosuvastatin Calcium (Crestor) 10 mg PO [facility] Last Admin: 05/31/18 21:25 Dose: 10 mg Sevelamer Carbonate (Renvela) [facility] Last Admin: 06/01/18 13:00 Dose: 800 mg Physical Exam - Constitutional Appears: Non-toxic, No Acute Distress - Head Exam Head Exam: ATRAUMATIC, NORMAL INSPECTION - Eye Exam Eye Exam: EOMI - ENT Exam ENT Exam: Mucous Membranes Moist - Neck Exam Neck exam: Positive for: Full Rom. Negative for: Lymphadenopathy - Respiratory Exam Respiratory Exam: Clear to Auscultation Bilateral, NORMAL BREATHING PATTERN - Cardiovascular Exam Cardiovascular Exam: REGULAR RHYTHM. absent: Rubs - GI/Abdominal Exam GI & Abdominal Exam: Soft. absent: Tenderness - Extremities Exam Extremities exam: Negative for: pedal edema - Neurological Exam Neurological exam: Alert, Oriented x3 - Psychiatric Exam Psychiatric exam: Normal Affect Results - Vital Signs Recent Vital Signs: Last Vital Signs Temp 97.8 F 06/01/18 08:03 Pulse 74 06/01/18 10:54 Resp 20 06/01/18 08:03 BP 158/72 H 06/01/18 10:54 Pulse Ox 100 06/01/18 12:00 - Labs Result Diagrams: 06/01/18 08:24 06/01/18 08:24 Labs: Laboratory Results - last 24 hr 05/31/18 05/31/18 05/31/18 12:59 12:59 20:02 WBC RBC Hgb Hct MCV MCH MCHC RDW Plt Count MPV Neut % (Auto) Lymph % (Auto) [place] % (Auto) Eos % (Auto) Baso % (Auto) Neut # (Auto) Lymph # (Auto) [place] # (Auto) Eos # (Auto) Baso # (Auto) PT 12.5 H INR 1.1 APTT 34 Sodium 134 Potassium 4.5 Chloride 94 L Carbon Dioxide 29 Anion Gap 16 BUN 59 H Creatinine 3.4 H Est GFR ( Amer) 21 Est GFR (Non-Af Amer) 17 POC Glucose (mg/dL) Random Glucose 181 H D Hemoglobin A1c Calcium 8.9 Total Bilirubin 0.6 AST 19 ALT 21 D Alkaline Phosphatase 91 Total Creatine Kinase 41 L 38 L CK-MB (Mass) 1.10 Troponin I < 0.0120 < 0.0120 NT-Pro-B Natriuret Pep 1350 H Total Protein 7.0 Albumin 4.2 Globulin 2.8 Albumin/Globulin Ratio 1.5 Triglycerides Cholesterol LDL Cholesterol Direct HDL Cholesterol Thyroxine (T4) TSH 3rd Generation 05/31/18 06/01/18 06/01/18 20:59 01:05 06:38 WBC RBC Hgb Hct MCV MCH MCHC RDW Plt Count MPV Neut % (Auto) Lymph % (Auto) [place] % (Auto) Eos % (Auto) Baso % (Auto) Neut # (Auto) Lymph # (Auto) [place] # (Auto) Eos # (Auto) Baso # (Auto) PT INR APTT Sodium Potassium Chloride Carbon Dioxide Anion Gap BUN Creatinine Est GFR ( Amer) Est GFR (Non-Af Amer) POC Glucose (mg/dL) 322 H 86 Random Glucose Hemoglobin A1c Calcium Total Bilirubin AST ALT Alkaline Phosphatase Total Creatine Kinase 36 L CK-MB (Mass) 0.92 Troponin I < 0.0120 NT-Pro-B Natriuret Pep Total Protein Albumin Globulin Albumin/Globulin Ratio Triglycerides Cholesterol LDL Cholesterol Direct HDL Cholesterol Thyroxine (T4) TSH 3rd Generation 01/07/1906/01/18 06/01/18 08:24 08:24 08:24 WBC 8.2 RBC 3.44 L Hgb 12.1 Hct 34.3 L MCV 99.7 H MCH 35.1 H MCHC 35.2 RDW 13.4 Plt Count 184 MPV 7.4 Neut % (Auto) 51.1 Lymph % (Auto) 37.3 [place] % (Auto) 8.0 Eos % (Auto) 2.8 Baso % (Auto) 0.8 Neut # (Auto) 4.2 Lymph # (Auto) 3.1 [place] # (Auto) 0.7 Eos # (Auto) 0.2 Baso # (Auto) 0.1 PT INR APTT Sodium 134 Potassium 4.1 Chloride 97 L Carbon Dioxide 26 Anion Gap 15 BUN 62 H Creatinine 3.7 H Est GFR ( Amer) 19 Est GFR (Non-Af Amer) 16 POC Glucose (mg/dL) Random Glucose 83 D Hemoglobin A1c 9.4 H Calcium 8.8 Total Bilirubin 0.6 AST 16 L ALT 26 Alkaline Phosphatase 88 Total Creatine Kinase CK-MB (Mass) Troponin I NT-Pro-B Natriuret Pep Total Protein 6.6 Albumin 3.7 Globulin 2.8 Albumin/Globulin Ratio 1.3 Triglycerides 94 Cholesterol 121 LDL Cholesterol Direct 53 HDL Cholesterol 45 Thyroxine (T4) 7.20 TSH 3rd Generation 2.09 06/01/18 11:12 WBC RBC Hgb Hct MCV MCH MCHC RDW Plt Count MPV Neut % (Auto) Lymph % (Auto) [place] % (Auto) Eos % (Auto) Baso % (Auto) Neut # (Auto) Lymph # (Auto) [place] # (Auto) Eos # (Auto) Baso # (Auto) PT INR APTT Sodium Potassium Chloride Carbon Dioxide Anion Gap BUN Creatinine Est GFR ( Amer) Est GFR (Non-Af Amer) POC Glucose (mg/dL) 183 H Random Glucose Hemoglobin A1c Calcium Total Bilirubin AST ALT Alkaline Phosphatase Total Creatine Kinase CK-MB (Mass) Troponin I NT-Pro-B Natriuret Pep Total Protein Albumin Globulin Albumin/Globulin Ratio Triglycerides Cholesterol LDL Cholesterol Direct HDL Cholesterol Thyroxine (T4) TSH 3rd Generation Assessment & Plan - Assessment and Plan (Free Text) Assessment: maint HD to be ordered Cardiology recommendations pending Will follow with you
--- NOTE | 2018-06-01 14:47 | CT ---
Date of service: 05/31/2018 PROCEDURE: CTA Chest with contrast HISTORY: rule out thoracic aorta aneurysm rupture COMPARISON: None available. TECHNIQUE: Contiguous axial images were obtained through the chest with intravenous contrast enhancement. Sagittal and coronal reconstructions were performed. The images were acquired during rapid bolus administration of contrast material. IV contrast: 100 mL Visipaque 320 Radiation dose: Total exam DLP = 519.92 mGy-cm. This CT exam was performed using one or more of the following dose reduction techniques: Automated exposure control, adjustment of the mA and/or kV according to patient size, and/or use of iterative reconstruction technique. FINDINGS: LUNGS: Clear lungs. Visualized airway clear. MEDIASTINUM: No evidence of thoracic aortic aneurysm. No aneurysmal dilatation of the proximal abdominal aorta. The ascending thoracic aorta measures 3.0 cm in diameter. Mild cardiomegaly. Status post CABG. No dilatation of the main pulmonary artery. The main pulmonary artery measures 2.3 cm in diameter no mediastinal or hilar lymphadenopathy. There is atherosclerotic calcification of the thoracic aorta. There is probable ulcerating atherosclerotic plaque of the upper abdominal aorta seen on series 3, image 111 and series 602, image 80. 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 This is only partially included on this examination and the full extent of the dissection is not appreciable from this examination. 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 There is no significant stenosis of the superior mesenteric artery though there is calcified atheromatous plaque. There is no gross stenosis at the origin of the renal arteries. Very small hiatal hernia noted. PLEURA: No pleural fluid. No pneumothorax. BONES: No fracture. Degenerative disc disease at T9-10 with disc space narrowing and subchondral sclerosis status post sternotomy. UPPER ABDOMEN: Cholelithiasis. No evidence of cholecystitis. Otherwise unremarkable. OTHER FINDINGS: None. IMPRESSION: No evidence of thoracic or upper abdominal aortic aneurysm. 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 The distal extent of the dissection is not evident from this examination, limited to the chest and upper abdomen. There is calcified atherosclerotic plaque. There is probable ulcerated plaque seen in the upper abdominal aorta. 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 Status post CABG. Mild cardiomegaly. Cholelithiasis. No evidence of cholecystitis. No other significant abnormality. The preliminary findings for this examination were reported by [facility] Radiology at 11:39 p.m. on 05/31/2018.. There is discordance of this report with the preliminary findings. The upper abdominal aortic dissection noted above was not described in the preliminary report of this examination. The stenosis of the origin of the celiac axis was not described in the preliminary report of this examination.
--- NOTE | 2018-06-01 15:27 | CARD ---
APPROVED REPORT Date of service: 06/01/2018 EXAM: Two-dimensional and M-mode echocardiogram with Doppler and color Doppler. Other Information Quality : GoodRhythm : INDICATION Chest Pain Congestive Heart Failure Palpitations Surgery/Intervention CABD DIMENSIONS IVSd1.3 (0.7-1.1cm)LVDd4.0 (3.9-5.9cm) PWd1.3 (0.7-1.1cm)LA Crhubt63 (18-58mL) LVDs2.2 (2.5-4.0cm)FS (%) 45.2 % LVEF (%)77.1 (>50%)LVEF (Carranza's)62.45 % IVC0.00 cm M-Mode DIMENSIONS Left Atrium (MM)3.64 (2.5-4.0cm)Aortic Root3.14 (2.2-3.7cm) Aortic Cusp Exc.1.85 (1.5-2.0cm) Aortic Valve AI P 1/2 [id number] Mitral Valve MV E Ftvpkzrz808.4cm/sMV A Iqfwxxlc570.7cm/sE/A ratio1.0 XWCF507.41 cm/s TDI Lateral E' Peak V12.68cm/sMedial E' Peak V4.16cm/sE/Lateral E'10.7 E/Medial E'32.5 Tricuspid Valve TR Peak Znzkcbpb448ko/sTR Peak Gr.25tnYvQIEU69voMv LEFT VENTRICLE There is mild concentric left ventricular hypertrophy. The left ventricula rsystolic function is normal. The left ventricular ejection fraction is within the normal range. There is borderline to mild hypokinesis in the basal anteroseptal wall. Possible Grade II diastolic dysfunction - pseudonormal filling dynamics. RIGHT VENTRICLE The right ventricle is normal size. The right ventricular systolic function is normal. ATRIA The left atrial index is moderately increased. The right atrium is mildly dilated. There is al secundum type atrial septal defect or PFO with left to right shunt. AORTIC VALVE The aortic valve is silghtly calcified but opens well. There is trace to mild aortic regurgitation. There is no aortic valvular stenosis. MITRAL VALVE Mitral annular calcification is moderate. Mitral regurgitation is moderate. There is a prosthetic mitral valve ring. TRICUSPID VALVE The tricuspid valve is normal in structure. There is moderate tricuspid regurgitation. Right ventricular systolic pressure is estimated at - 46 mmHg. There is moderate pulmonary hypertension. PULMONIC VALVE The pulmonary valve is normal in structure. GREAT VESSELS The aortic root is normal in size. The IVC is normal in size and collapses >50% with inspiration. PERICARDIAL EFFUSION There is no pericardial effusion. <Conclusion> There is mild concentric left ventricular hypertrophy. The left ventricular systolic function is normal. There is borderline to mild hypokinesis in the basal anteroseptal wall suggestive of coronary heart disease. Possible Grade II diastolic dysfunction - pseudonormal filling dynamics. The right ventricular systolic function is normal. The left atrial index is moderately increased. There is a secundum type atrial septal defect or PFO with left to right shunt. There is trace to mild aortic regurgitation. Moderate mitral annular calcification with moderate mitral regurgitation. S/P prosthetic mitral valve ring insertion. There is moderate tricuspid regurgitation. Right ventricular systolic pressure is estimated at - 46 mmHg compatible with moderate pulmonary hypertension. There is no pericardial effusion.
--- NOTE | 2018-06-01 18:19 | CARD ---
APPROVED REPORT Date of service: 05/31/2018 EKG Measurement Heart [id number] MD [id number] <Conclusion> Normal sinus rhythm Nonspecific T wave abnormality Abnormal ECG
--- NOTE | 2018-06-01 20:39 | CP.PCM.CON ---
History of Present Illness - History of Present Illness History of Present Illness: Vascular Surgery Consult Re: infrarenal aortic dissection HPI: 83M presented 05/31/18 with intermittant chest pain that had become severe. Pt was worked up to r/o [place] and TA Aneurysm. Vascular surgery was consulted due to partial imaging of abd aorta on CTA showed "chronic dissecting infrarenal AAA. Currently pt is without pain. Denies fever, chills, headache, SOB, dyspnea, chest pain, nausea, emesis, abdominal pain, change in bowel habits, melena, hematochezia, dysuria, hematuria, claudication. PMH: ESRD on HD MWF, Hx AZ, CHF, HTN, HLD, Hypothyroid, DM PSH: AVF, CABG SH:No tobacco, EtOH, or drug use FH: Noncontributory All: NKDA Meds: See MAR Review of Systems - Review of Systems All systems: reviewed and no additional remarkable complaints except (as per HPI ) Past Patient History - Infectious Disease Hx of Infectious Diseases: None - Past Medical History & Family History Past Medical History?: Yes - Past Social History Smoking Status: Never Smoked - CARDIAC Hx Congestive Heart Failure: Yes Hx Hypercholesterolemia: Yes Hx Hypertension: Yes Hx Peripheral Edema: Yes - PULMONARY Hx Asthma: Yes Hx Chronic Obstructive Pulmonary Disease (COPD): Yes - NEUROLOGICAL Hx Neurological Disorder: No - HEENT Hx HEENT Problems: Yes Hx Cataracts: Yes (with surgery done and IOL) - RENAL Hx Chronic Kidney Disease: Yes - ENDOCRINE/METABOLIC Hx Hypothyroidism: Yes - HEMATOLOGICAL/ONCOLOGICAL Hx Anemia: Yes - INTEGUMENTARY Hx Dermatological Problems: No - GASTROINTESTINAL Hx Gastrointestinal Disorders: No - GENITOURINARY/GYNECOLOGICAL Hx Genitourinary Disorders: No - PSYCHIATRIC Hx Substance Use: No - SURGICAL HISTORY Hx Coronary Artery Bypass Graft: Yes - ANESTHESIA Hx Anesthesia: Yes Hx Anesthesia Reactions: No Hx Malignant Hyperthermia: No Meds Allergies/Adverse Reactions: Allergies Allergy/AdvReac Type Severity Reaction Status Date / Time No Known Allergies Allergy Verified 05/31/18 12:51 - Medications Medications: Current Medications Acetaminophen (Tylenol 325mg Tab) 650 mg PO Q6 PRN PRN Reason: Pain, Mild (1-3) Apixaban (Eliquis) 2.[address] [facility] Last Admin: 06/01/18 17:01 Dose: 2.5 mg Aspirin (Aspirin Chewable) [address] [facility] Last Admin: 06/01/18 10:57 Dose: 81 mg Carvedilol (Coreg) 3.[address] [facility] Last Admin: 06/01/18 17:01 Dose: 3.125 mg Dextrose (Dextrose 50% Inj) 0 ml IV STAT PRN; Protocol PRN Reason: Hypoglycemia Protocol Dextrose (Glutose 15) 0 gm PO ONCE PRN; Protocol PRN Reason: Hypoglycemia Protocol Glucagon (Glucagen Diagnostic Kit) 0 mg IM STAT PRN; Protocol PRN Reason: Hypoglycemia Protocol Dextrose (Dextrose 5% In Water 1000 Ml) 1,000 mls @ 0 mls/hr IV .Q0M PRN; Protocol PRN Reason: Hypoglycemia Protocol Insulin Glargine (Lantus) 30 unit SC [facility] Last Admin: 05/31/18 22:53 Dose: 30 units Insulin Human Regular (Novolin R) 0 unit SC [facility]; Protocol Last Admin: 06/01/18 16:59 Dose: 3 units Levothyroxine Sodium (Synthroid) 50 mcg PO DAILY@0630 [facility] Last Admin: 06/01/18 06:09 Dose: 50 mcg Lisinopril (Zestril) [address] [facility] Last Admin: 06/01/18 11:10 Dose: 20 mg Nitroglycerin (Nitrostat Sl Tab) 0.4 mg SL Q5M PRN PRN Reason: Other, CHEST PAIN Rosuvastatin Calcium (Crestor) 10 mg PO [facility] Last Admin: 05/31/18 21:25 Dose: 10 mg Sevelamer Carbonate (Renvela) [address] [facility] Last Admin: 06/01/18 17:01 Dose: 800 mg Physical Exam - Constitutional Appears: Non-toxic, No Acute Distress - Head Exam Head Exam: ATRAUMATIC, NORMOCEPHALIC - Eye Exam Eye Exam: EOMI. absent: Scleral icterus - ENT Exam ENT Exam: Mucous Membranes Moist Additional comments: trachea midline - Neck Exam Neck exam: Positive for: Full Rom. Negative for: Tenderness - Respiratory Exam Respiratory Exam: NORMAL BREATHING PATTERN. absent: Respiratory Distress - Cardiovascular Exam Cardiovascular Exam: RRR, +S1, +S2. absent: Bradycardia, Tachycardia - GI/Abdominal Exam GI & Abdominal Exam: Soft. absent: Distended, Firm, Guarding, Rebound, Rigid, Tenderness - Rectal Exam Rectal Exam: Deferred - Extremities Exam Extremities exam: Positive for: normal capillary refill. Negative for: calf tenderness - Back Exam Back exam: absent: CVA tenderness (L), CVA tenderness (R) - Neurological Exam Neurological exam: Alert, Oriented x3 - Skin Skin Exam: Dry, Warm Results - Vital Signs Recent Vital Signs: Last Vital Signs Temp 97.8 F 06/01/18 15:00 Pulse 71 06/01/18 15:43 Resp 20 06/01/18 15:00 BP 148/65 06/01/18 15:00 Pulse Ox 100 06/01/18 15:45 - Labs Result Diagrams: 06/02/18 06:17 06/01/18 08:24 Labs: Laboratory Results - last 24 hr 05/31/18 06/01/18 06/01/18 20:59 01:05 06:38 WBC RBC Hgb Hct MCV MCH MCHC RDW Plt Count MPV Neut % (Auto) Lymph % (Auto) [place] % (Auto) Eos % (Auto) Baso % (Auto) Neut # (Auto) Lymph # (Auto) [place] # (Auto) Eos # (Auto) Baso # (Auto) Sodium Potassium Chloride Carbon Dioxide Anion Gap BUN Creatinine Est GFR ( Amer) Est GFR (Non-Af Amer) POC Glucose (mg/dL) 322 H 86 Random Glucose Hemoglobin A1c Calcium Total Bilirubin AST ALT Alkaline Phosphatase Total Creatine Kinase 36 L CK-MB (Mass) 0.92 Troponin I < 0.0120 Total Protein Albumin Globulin Albumin/Globulin Ratio Triglycerides Cholesterol LDL Cholesterol Direct HDL Cholesterol Thyroxine (T4) TSH 3rd Generation 06/01/18 06/01/18 06/01/18 08:24 08:24 08:24 WBC 8.2 RBC 3.44 L Hgb 12.1 Hct 34.3 L MCV 99.7 H MCH 35.1 H MCHC 35.2 RDW 13.4 Plt Count 184 MPV 7.4 Neut % (Auto) 51.1 Lymph % (Auto) 37.3 [place] % (Auto) 8.0 Eos % (Auto) 2.8 Baso % (Auto) 0.8 Neut # (Auto) 4.2 Lymph # (Auto) 3.1 [place] # (Auto) 0.7 Eos # (Auto) 0.2 Baso # (Auto) 0.1 Sodium 134 Potassium 4.1 Chloride 97 L Carbon Dioxide 26 Anion Gap 15 BUN 62 H Creatinine 3.7 H Est GFR ( Amer) 19 Est GFR (Non-Af Amer) 16 POC Glucose (mg/dL) Random Glucose 83 D Hemoglobin A1c 9.4 H Calcium 8.8 Total Bilirubin 0.6 AST 16 L ALT 26 Alkaline Phosphatase 88 Total Creatine Kinase CK-MB (Mass) Troponin I Total Protein 6.6 Albumin 3.7 Globulin 2.8 Albumin/Globulin Ratio 1.3 Triglycerides 94 Cholesterol 121 LDL Cholesterol Direct 53 HDL Cholesterol 45 Thyroxine (T4) 7.20 TSH 3rd Generation 2.09 06/01/18 06/01/18 11:12 16:19 WBC RBC Hgb Hct MCV MCH MCHC RDW Plt Count MPV Neut % (Auto) Lymph % (Auto) [place] % (Auto) Eos % (Auto) Baso % (Auto) Neut # (Auto) Lymph # (Auto) [place] # (Auto) Eos # (Auto) Baso # (Auto) Sodium Potassium Chloride Carbon Dioxide Anion Gap BUN Creatinine Est GFR ( Amer) Est GFR (Non-Af Amer) POC Glucose (mg/dL) 183 H 206 H Random Glucose Hemoglobin A1c Calcium Total Bilirubin AST ALT Alkaline Phosphatase Total Creatine Kinase CK-MB (Mass) Troponin I Total Protein Albumin Globulin Albumin/Globulin Ratio Triglycerides Cholesterol LDL Cholesterol Direct HDL Cholesterol Thyroxine (T4) TSH 3rd Generation - Imaging and Cardiology CTA scan - chest Status: Image reviewed by me, Report reviewed by me Assessment & Plan - Assessment and Plan (Free Text) Assessment: 83M with abnormal partial imaging of the infrarenal aorta with radiographic concern for dissection Plan: Pt is currently asymptomatic. Needs full CTA imaging of infrarenal aorta Get CTA prior to dialysis tomorrow F/U results, monitor for symptoms of dissection D/W Dr. Monika Raygoza PGY4
--- NOTE | 2018-06-01 22:19 | CP.PCM.PN ---
Subjective - Date & Time of Evaluation Date of Evaluation: 06/01/18 Time of Evaluation: 22:17 - Subjective Subjective: Patient was seen and examined at bedside this AM. Denies chest pain and dyspnea Physical Examination - Constitutional Appears: Non-toxic, No Acute Distress - Head Exam Head Exam: ATRAUMATIC, NORMAL INSPECTION, NORMOCEPHALIC - Eye Exam Eye Exam: EOMI, Normal appearance Pupil Exam: NORMAL ACCOMODATION - ENT Exam ENT Exam: Mucous Membranes Moist, Normal Exam - Neck Exam Neck Exam: Full ROM, Normal Inspection. absent: Tenderness - Respiratory Exam Respiratory Exam: Clear to Ausculation Bilateral, NORMAL BREATHING PATTERN. absent: Accessory Muscle Use, Rales, Rhonchi, Wheezes, Respiratory Distress, Stridor - Cardiovascular Exam Cardiovascular Exam: REGULAR RHYTHM, +S1, +S2 - GI/Abdominal Exam GI & Abdominal Exam: Soft, Normal Bowel Sounds. absent: Distended, Firm, Guarding, Rigid, Tenderness, Organomegaly, Rebound - Extremities Exam Extremities Exam: Full ROM, Normal Capillary Refill, Normal Inspection. absent: Calf Tenderness, Pedal Edema Additional comments: L AV fistula - Back Exam Back Exam: NORMAL INSPECTION - Neurological Exam Neurological Exam: Alert, Awake, Oriented x3 - Psychiatric Exam Psychiatric exam: Normal Affect, Normal Mood - Skin Skin Exam: Dry, Intact, Normal Color, Warm Assessment and Plan - Assessment and Plan (Free Text) Assessment: 83 year old male with PMHx of CHF, CAD with hx CABG 07/2017, DM, ESRD on HD MWF, and hypothyroidism presents to ED complaining of chest pain Plan: Chest Pain, r/o ACS Hx CAD s/p CABG (07/2017) Chronic systolic HF, stable -EKG (05/31): NSR at 92 bpm, abnormal QRS-T angle -troponin x3 negative -Thyroid panel wnl -Lipid panel wnl -ProBNP: 1350, [place] [address] during 07/2017 admission -ECHO (07/2017): EF 20-25% -CXR (05/31): Dense atherosclerotic calcification of the aorta. Median sternotomy wires with evidence of CABG. Cardiac valve prosthesis. No focal consolidations. -Cardiology recs (Dr. Garcia) appreciated -f/u ECHO report -CT angiogram (06/01): no evidence of thoracic or upper abdominal aortic aneurysm. 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 The distal extent of the dissection is not included in this exam. There is calcified atherosclerotic plaque, probable ulcerated plaque seen in the upper abdominal aorta. 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 -ASA 81 mg PO daily -Eliquis 2.5 mg PO BID -Crestor 10 mg PO HS -Coreg 3.125mg PO daily ESRD on HD MWF - Pt goes to [facility] in [place] -Last dialysis session was on Tuesday 05/29 due to holiday week -Renvela 800mg PO TIDCC, home med -Nephrology (Dr. Cain) recs appreciated -maintenance HD to be ordered DM -HbA1c: 9.4 -ISS -Lantus 30 units SC -accuchecks ACHS -hypoglycemic protocol HTN -Lisinopril 20mg PO daily -Coreg 3.125 PO daily Hypothyroidism -thyroid panel wnl -Levothyroxine 50mcg PO daily PPx, Diet, Disposition -DVT ppx: SCDs, home eliquis -GI ppx: not indicated -Diet: HHD, renal diet Objective - Vital Signs/Intake and Output Vital Signs (last 24 hours): Temp Pulse Resp BP Pulse Ox 97.8 F 71 20 148/65 100 06/01/18 15:00 06/01/18 15:43 06/01/18 15:00 06/01/18 15:00 06/01/18 15:45 Intake and Output: 06/01/18 06/02/18 18:59 06:59 Intake Total 400 Balance 400 - Medications Medications: Current Medications Acetaminophen (Tylenol 325mg Tab) 650 mg PO Q6 PRN PRN Reason: Pain, Mild (1-3) Apixaban (Eliquis) 2.5 mg PO BID [facility] Last Admin: 06/01/18 17:01 Dose: 2.5 mg Aspirin (Aspirin Chewable) 81 mg PO DAILY [facility] Last Admin: 06/01/18 10:57 Dose: 81 mg Carvedilol (Coreg) 3.125 mg PO BID [facility] Last Admin: 06/01/18 17:01 Dose: 3.125 mg Dextrose (Dextrose 50% Inj) 0 ml IV STAT PRN; Protocol PRN Reason: Hypoglycemia Protocol Dextrose (Glutose 15) 0 gm PO ONCE PRN; Protocol PRN Reason: Hypoglycemia Protocol Glucagon (Glucagen Diagnostic Kit) 0 mg IM STAT PRN; Protocol PRN Reason: Hypoglycemia Protocol Dextrose (Dextrose 5% In Water 1000 Ml) 1,000 mls @ 0 mls/hr IV .Q0M PRN; Protocol PRN Reason: Hypoglycemia Protocol Insulin Glargine (Lantus) 30 unit SC [facility] Last Admin: 05/31/18 22:53 Dose: 30 units Insulin Human Regular (Novolin R) 0 unit SC [facility]; Protocol Last Admin: 06/01/18 16:59 Dose: 3 units Levothyroxine Sodium (Synthroid) 50 mcg PO DAILY@0630 [facility] Last Admin: 06/01/18 06:09 Dose: 50 mcg Lisinopril (Zestril) 20 mg PO DAILY [facility] Last Admin: 06/01/18 11:10 Dose: 20 mg Nitroglycerin (Nitrostat Sl Tab) 0.4 mg SL Q5M PRN PRN Reason: Other, CHEST PAIN Rosuvastatin Calcium (Crestor) 10 mg PO [facility] Last Admin: 05/31/18 21:25 Dose: 10 mg Sevelamer Carbonate (Renvela) 800 mg PO TIDCC [facility] Last Admin: 06/01/18 17:01 Dose: 800 mg - Labs Labs: 06/01/18 08:24 06/01/18 08:24 PT 12.5 SECONDS (9.7-12.2) H 05/31/18 12:59 INR 1.1 05/31/18 12:59 APTT 34 SECONDS (21-34) 05/31/18 12:59
[2018-06-01] MEDS: (Lantus) Insulin Glargine, Recombinant SC SCH (22:43)
[2018-06-02 06:23] LABS: BASO % 0.6 % (0.0-2.0); EOS # 0.2 K/uL (0.0-0.7); EOS % 3.2 % (0.0-4.0); HEMOGLOBIN 12.3 g/dL (12.0-18.0); LYMPH # 2.7 K/uL (1.0-4.3); LYMPH % 36.8 % (20.0-40.0); MEAN CELL VOLUME 98.7 fL (80.0-94.0); MEAN CORPUSCULAR HEMOGLOBIN 34.2 pg (27.0-31.0); MEAN CORPUSCULAR HGB CONC 34.7 g/dL (33.0-37.0); MEAN PLATELET VOLUME 7.3 fL (7.2-11.7); MONO # 0.6 K/uL (0.0-0.8); MONO % 8.7 % (0.0-10.0); NEUT # 3.7 K/uL (1.8-7.0); NEUT % 50.7 % (50.0-75.0); RBC 3.59 Mil/uL (4.40-5.90); RED CELL DISTRIBUTION WIDTH 13.2 % (11.5-14.5); WHITE BLOOD COUNT 7.3 K/uL (4.8-10.8)
[2018-06-02] MEDS: Levothyroxine 50 MCG TAB PO SCH (06:27)
--- NOTE | 2018-06-02 07:16 | CP.PCM.PN ---
Subjective - Date & Time of Evaluation Date of Evaluation: 06/02/18 Time of Evaluation: 07:15 - Subjective Subjective: PGY-1 Medicine Progress Note for Dr. Justice Patient seen and examined at bedside this AM. No acute overnight events reported. Patient states he feels good, denying chest pain, palpitations, sob, nausea/vomiting/diarrhea. Set for CT angio abdomen/pelvis today for follow-up of infrarenal dissection prior to dialysis session. Objective - Vital Signs/Intake and Output Vital Signs (last 24 hours): Temp Pulse Resp BP Pulse Ox 97.8 F 81 20 148/65 100 06/01/18 15:00 06/02/18 00:48 06/01/18 15:00 06/01/18 15:00 06/02/18 04:00 Intake and Output: 06/02/18 06/02/18 06:59 18:59 Intake Total 400 Balance 400 - Medications Medications: Current Medications Acetaminophen (Tylenol 325mg Tab) 650 mg PO Q6 PRN PRN Reason: Pain, Mild (1-3) Apixaban (Eliquis) 2.5 mg PO BID [facility] Last Admin: 06/01/18 17:01 Dose: 2.5 mg Aspirin (Aspirin Chewable) 81 mg PO DAILY [facility] Last Admin: 06/01/18 10:57 Dose: 81 mg Carvedilol (Coreg) 3.125 mg PO BID [facility] Last Admin: 06/01/18 17:01 Dose: 3.125 mg Dextrose (Dextrose 50% Inj) 0 ml IV STAT PRN; Protocol PRN Reason: Hypoglycemia Protocol Dextrose (Glutose 15) 0 gm PO ONCE PRN; Protocol PRN Reason: Hypoglycemia Protocol Glucagon (Glucagen Diagnostic Kit) 0 mg IM STAT PRN; Protocol PRN Reason: Hypoglycemia Protocol Dextrose (Dextrose 5% In Water 1000 Ml) 1,000 mls @ 0 mls/hr IV .Q0M PRN; Protocol PRN Reason: Hypoglycemia Protocol Insulin Glargine (Lantus) 30 unit SC HS [facility] Last Admin: 06/01/18 22:43 Dose: 30 units Insulin Human Regular (Novolin R) 0 unit SC ACHS [facility]; Protocol Last Admin: 06/01/18 22:43 Dose: Not Given Levothyroxine Sodium (Synthroid) 50 mcg PO DAILY@0630 [facility] Last Admin: 06/02/18 06:27 Dose: 50 mcg Lisinopril (Zestril) 20 mg PO DAILY [facility] Last Admin: 06/01/18 11:10 Dose: 20 mg Nitroglycerin (Nitrostat Sl Tab) 0.4 mg SL Q5M PRN PRN Reason: Other, CHEST PAIN Rosuvastatin Calcium (Crestor) 10 mg PO HS [facility] Last Admin: 06/01/18 22:00 Dose: 10 mg Sevelamer Carbonate (Renvela) 800 mg PO TIDCC [facility] Last Admin: 06/01/18 17:01 Dose: 800 mg - Labs Labs: 06/02/18 06:17 06/01/18 08:24 PT 12.5 SECONDS (9.7-12.2) H 05/31/18 12:59 INR 1.1 05/31/18 12:59 APTT 34 SECONDS (21-34) 05/31/18 12:59 - Constitutional Appears: Non-toxic, No Acute Distress - Head Exam Head Exam: ATRAUMATIC, NORMAL INSPECTION, NORMOCEPHALIC - Eye Exam Eye Exam: EOMI, Normal appearance Pupil Exam: NORMAL ACCOMODATION - ENT Exam ENT Exam: Mucous Membranes Moist, Normal Exam - Neck Exam Neck Exam: Full ROM, Normal Inspection - Respiratory Exam Respiratory Exam: Clear to Ausculation Bilateral, NORMAL BREATHING PATTERN. absent: Accessory Muscle Use, Rales, Rhonchi, Wheezes, Respiratory Distress, S tridor - Cardiovascular Exam Cardiovascular Exam: REGULAR RHYTHM, +S1, +S2 - GI/Abdominal Exam GI & Abdominal Exam: Soft, Normal Bowel Sounds. absent: Distended, Firm, Guarding, Rigid, Tenderness, Organomegaly, Rebound - Extremities Exam Extremities Exam: Full ROM, Normal Capillary Refill, Normal Inspection. absent: Calf Tenderness, Pedal Edema Additional comments: L AV fistula - Back Exam Back Exam: NORMAL INSPECTION - Neurological Exam Neurological Exam: Alert, Awake, Oriented x3 - Skin Skin Exam: Dry, Intact, Normal Color, Warm Assessment and Plan - Assessment and Plan (Free Text) Assessment: 83 year old male with PMHx of CHF, CAD with hx CABG 07/2017, DM, ESRD on HD MWF, and hypothyroidism presents to ED complaining of chest pain--since resolved. CT angiogram chest demonstrated possible dissection of the infrarenal abdominal aorta from the short segment. The distal extent of the dissection is not included in this exam. Vascular surgery consulted, patient to have f/u CT angio of abdomen/pelvis prior to HD session today. Plan: Infrarenal aortic dissection -CT angiogram (06/01): no evidence of thoracic or upper abdominal aortic aneurysm. 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 The distal extent of the dissection is not included in this exam. There is calcified atherosclerotic plaque, probable ulcerated plaque seen in the upper abdominal aorta. 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 -CT angiogram abdomen/pelvis (06/02): Small partially thrombosed dissections identified at the infrarenal abdominal aorta with partially captured R common iliac artery dissection without thrombus. No thoracic aortic dissection appre ciated. Follow-up pelvis CT with contrast advised to complete this exam in no less than 24 hrs. -f/u Vascular surgery (Dr. Frank) recs Chest Pain, r/o ACS--resolved Hx CAD s/p CABG (07/2017) Chronic systolic HF, stable -EKG (05/31): NSR at 92 bpm, abnormal QRS-T angle -troponin x3 negative -Thyroid panel wnl -Lipid panel wnl -ProBNP: 1350, [place] 57709 during 07/2017 admission -ECHO (07/2017): EF 20-25% -CXR (05/31): Dense atherosclerotic calcification of the aorta. Median sternotomy wires with evidence of CABG. Cardiac valve prosthesis. No focal consolidations. -Cardiology recs (Dr. Garcia) appreciated -ECHO (06/02): RV systolic pressure ~46 mmHg, compatible with moderate pulmonary HTN. Moderate tricuspid regurgitation. Moderate mitral annular calcification with moderate regurgitation, s/p prosthetic mitral valve ring insertion. There is a secundum type ASD or PFO with L to R shunt. Possible Grade II diastolic dysfunction, pseudonormal filling dynamics. -f/u vascular surgical recs -ASA 81 mg PO daily -Eliquis 2.5 mg PO BID -Crestor 10 mg PO HS -Coreg 3.125mg PO daily ESRD on HD MWF - Pt goes to [facility] in [place] -Last dialysis session was on Tuesday 05/29 due to holiday week -Renvela 800mg PO TIDCC, home med -Nephrology (Dr. Cain) recs appreciated -maintenance HD, session scheduled today -follow cardiac recs, if d/c'd can follow up with outpatient dialysis clinic in AM DM -HbA1c: 9.4 -ISS -Lantus 30 units SC -accuchecks ACHS -hypoglycemic protocol HTN -Lisinopril 20mg PO daily -Coreg 3.125 PO daily Hypothyroidism -thyroid panel wnl -Levothyroxine 50mcg PO daily PPx, Diet, Disposition -DVT ppx: SCDs, home eliquis -GI ppx: not indicated -Diet: HHD, renal diet Case discussed with Dr. Reshma Leal DO, PGY-1
--- NOTE | 2018-06-02 07:36 | CP.PCM.PN ---
Subjective - Date & Time of Evaluation Date of Evaluation: 06/02/18 Time of Evaluation: 07:32 - Subjective Subjective: Vascular Surgery Progress Note for Dr. Frank 83M seen and evaluated at bedside this morning. No acute events overnight. No complaints this morning. Patient sitting up in bed comfortably. Denies f/c, n/v/d, SOB, CP, headaches, dizziness, or urinary symptoms. Objective - Vital Signs/Intake and Output Vital Signs (last 24 hours): Temp Pulse Resp BP Pulse Ox 97.8 F 81 20 148/65 100 06/01/18 15:00 06/02/18 00:48 06/01/18 15:00 06/01/18 15:00 06/02/18 04:00 Intake and Output: 06/02/18 06/02/18 06:59 18:59 Intake Total 400 Balance 400 - Medications Medications: Current Medications Acetaminophen (Tylenol 325mg Tab) 650 mg PO Q6 PRN PRN Reason: Pain, Mild (1-3) Apixaban (Eliquis) 2.5 mg PO BID [facility] Last Admin: 06/01/18 17:01 Dose: 2.5 mg Aspirin (Aspirin Chewable) 81 mg PO DAILY [facility] Last Admin: 06/01/18 10:57 Dose: 81 mg Carvedilol (Coreg) 3.125 mg PO BID [facility] Last Admin: 06/01/18 17:01 Dose: 3.125 mg Dextrose (Dextrose 50% Inj) 0 ml IV STAT PRN; Protocol PRN Reason: Hypoglycemia Protocol Dextrose (Glutose 15) 0 gm PO ONCE PRN; Protocol PRN Reason: Hypoglycemia Protocol Glucagon (Glucagen Diagnostic Kit) 0 mg IM STAT PRN; Protocol PRN Reason: Hypoglycemia Protocol Dextrose (Dextrose 5% In Water 1000 Ml) 1,000 mls @ 0 mls/hr IV .Q0M PRN; Protocol PRN Reason: Hypoglycemia Protocol Insulin Glargine (Lantus) 30 unit SC HS [facility] Last Admin: 06/01/18 22:43 Dose: 30 units Insulin Human Regular (Novolin R) 0 unit SC ACHS [facility]; Protocol Last Admin: 06/01/18 22:43 Dose: Not Given Levothyroxine Sodium (Synthroid) 50 mcg PO DAILY@0630 [facility] Last Admin: 06/02/18 06:27 Dose: 50 mcg Lisinopril (Zestril) 20 mg PO DAILY [facility] Last Admin: 06/01/18 11:10 Dose: 20 mg Nitroglycerin (Nitrostat Sl Tab) 0.4 mg SL Q5M PRN PRN Reason: Other, CHEST PAIN Rosuvastatin Calcium (Crestor) 10 mg PO HS [facility] Last Admin: 06/01/18 22:00 Dose: 10 mg Sevelamer Carbonate (Renvela) 800 mg PO TIDCC [facility] Last Admin: 06/01/18 17:01 Dose: 800 mg - Labs Labs: 06/02/18 06:17 06/01/18 08:24 PT 12.5 SECONDS (9.7-12.2) H 05/31/18 12:59 INR 1.1 05/31/18 12:59 APTT 34 SECONDS (21-34) 05/31/18 12:59 - Constitutional Appears: Well, Non-toxic, No Acute Distress - Head Exam Head Exam: ATRAUMATIC, NORMAL INSPECTION, NORMOCEPHALIC - Eye Exam Eye Exam: EOMI - ENT Exam ENT Exam: Mucous Membranes Moist - Respiratory Exam Respiratory Exam: NORMAL BREATHING PATTERN. absent: Respiratory Distress - GI/Abdominal Exam GI & Abdominal Exam: Soft, Normal Bowel Sounds. absent: Tenderness - Back Exam Back Exam: absent: CVA tenderness (L), CVA tenderness (R) - Neurological Exam Neurological Exam: Alert, Awake - Psychiatric Exam Psychiatric exam: Normal Affect - Skin Skin Exam: Dry, Intact, Normal Color, Warm Assessment and Plan - Assessment and Plan (Free Text) Assessment: 83M w/ infrarenal aortic aneurysm Plan: CTA of Abd/Pel prior to hemodialysis today Will f/u results Medical management per primary team Further recommendations per Dr. Monika Morales PGY1
[2018-06-02] MEDS: (Novolin R) Insulin Human Regular 100 units/ml vial SC SCH ×2 (08:30→12:45)
[2018-06-02] MEDS ORDERED: Iodixanol 320 MG/ML 100 ML BOTTLE IV ONE (09:06)
--- NOTE | 2018-06-02 10:10 | CT ---
PROCEDURE: CT Angiography Chest, Abdomen and Pelvis with and without intravenous contrast HISTORY: r/o infrarenal dissection COMPARISON: None. TECHNIQUE: Contiguous axial images of the chest, abdomen and pelvis were obtained in the phase of aortic enhancement. A noncontrast enhanced CT of the chest was also obtained to evaluate for possible intramural thrombus. Coronal and sagittal reformats were generated. IV dose administered: Radiation dose: Total exam DLP = 569.66 mGy-cm. This CT exam was performed using one or more of the following dose reduction techniques: Automated exposure control, adjustment of the mA and/or kV according to patient size, and/or use of iterative reconstruction technique. FINDINGS: CT ANGIOGRAPHY OF THE CHEST WITH & WITHOUT CONTRAST: AORTA (CHEST AND ABDOMEN): There is no apparent aneurysm involving the thoracic or abdominal aortic segments. There is extensive atherosclerotic plaque identified without significant stenosis, however, involving both thoracic and abdominal segments. No thoracic aortic dissection is identified. However, in the abdomen, there is a small infrarenal aortic dissection affecting the left wall measuring 3.9 x 1.2 x 2.8 cm (transverse by anteroposterior by superoinferior dimensions), only partially opacified by contrast at its superior extent and minimally at its inferior extent as well. There is additional partially thrombosed dissection nearly the same size toward the right side of the infrarenal abdominal aorta more inferior in location than the aforementioned dissection. It measures 0.5 x 1.3 x 2.8 cm with only a central segment enhancing with contrast. Cephalad and caudad segments are thrombosed. Finally, there is a dissection involving the proximal segment right common iliac artery with none on the left. This would exhibits some opacification throughout the majority of its extent but is not fully captured this exam which was terminated at the pelvis. Follow-up pelvis CT with contrast is recommended no sooner than 24 hr from now. There is approximately 50 percent stenosis of the proximal celiac artery at its origin with poststenotic dilatation appearing mild. Mild stenosis of the proximal segment of the superior mesenteric artery is appreciated which otherwise remains widely patent. Inferior mesenteric artery may be severely stenosed proximally. Mild stenosis of the proximal left renal artery is identified, similar at the right. LUNGS: Clear. No nodule, mass or consolidation. MEDIASTINUM: Unremarkable. Normal caliber aorta and pulmonary arterial trunk. No aortic dissection. Normal size heart. Calcified coronary artery disease appreciated. Extensive atherosclerotic plaque, partially calcified, is seen in various segments of the thoracic aorta. LYMPH NODES: Unremarkable. PLEURA: Unremarkable. No pneumothorax. No pleural fluid. BONES: Sternotomy and post CABG changes are identified in the mediastinum. OTHER FINDINGS: None. CT ANGIOGRAPHY OF THE ABDOMEN WITH CONTRAST: LIVER: Unremarkable. No gross lesion or ductal dilatation. GALLBLADDER AND BILE DUCTS: Trace cholelithiasis again identified at the medial proximal gallbladder lumen. PANCREAS: Unremarkable. No gross lesion or ductal dilatation. SPLEEN: Unremarkable. ADRENALS: Unremarkable. No mass. KIDNEYS AND URETERS: No obstructive uropathy bilaterally or definitive renal mass. Focal areas of cortical loss or occasion encountered at the bilateral kidneys representing chronic infarcts bilaterally. STOMACH AND BOWEL: Moderate fecal loading seen throughout the large bowel no obstruction. No gross mural thickening. The entire large and small bowel are not captured in this exam. Stomach is moderately distended with retained fluid and gas. APPENDIX: Not included in this exam. PERITONEUM: Unremarkable. No free fluid. No free air. LYMPH NODES: Unremarkable. No enlarged lymph nodes. BONES: No acute fracture. OTHER FINDINGS: None. IMPRESSION: Small partially thrombosed dissections are identified at the infrarenal abdominal aorta as discussed above with partially captured right common iliac artery dissection without thrombus. No thoracic aortic dissection appreciated. Follow-up pelvis CT with contrast is advised to complete this exam in no less than 24 hr. Lesser additional findings as discussed above.
--- NOTE | 2018-06-02 10:11 | CP.PCM.PN ---
Subjective - Date & Time of Evaluation Date of Evaluation: 06/02/18 Time of Evaluation: 10:07 - Subjective Subjective: Seen at dialysis Feels much better; no more CPs, n, v, SOB Seen by cardio- cleared for discharge BP controlled Labs acceptable Objective - Vital Signs/Intake and Output Vital Signs (last 24 hours): Temp Pulse Resp BP Pulse Ox 97.6 F 75 20 148/60 98 06/02/18 07:00 06/02/18 07:00 06/02/18 07:00 06/02/18 07:00 06/02/18 07:10 Intake and Output: 06/02/18 06/02/18 06:59 18:59 Intake Total 400 Balance 400 - Medications Medications: Current Medications Acetaminophen (Tylenol 325mg Tab) 650 mg PO Q6 PRN PRN Reason: Pain, Mild (1-3) Apixaban (Eliquis) 2.5 mg PO BID [facility] Last Admin: 06/02/18 09:50 Dose: Not Given Aspirin (Aspirin Chewable) 81 mg PO DAILY [facility] Last Admin: 06/02/18 09:50 Dose: Not Given Carvedilol (Coreg) 3.125 mg PO BID [facility] Last Admin: 06/02/18 09:50 Dose: Not Given Dextrose (Dextrose 50% Inj) 0 ml IV STAT PRN; Protocol PRN Reason: Hypoglycemia Protocol Dextrose (Glutose 15) 0 gm PO ONCE PRN; Protocol PRN Reason: Hypoglycemia Protocol Glucagon (Glucagen Diagnostic Kit) 0 mg IM STAT PRN; Protocol PRN Reason: Hypoglycemia Protocol Dextrose (Dextrose 5% In Water 1000 Ml) 1,000 mls @ 0 mls/hr IV .Q0M PRN; Protocol PRN Reason: Hypoglycemia Protocol Insulin Glargine (Lantus) 30 unit SC HS [facility] Last Admin: 06/01/18 22:43 Dose: 30 units Insulin Human Regular (Novolin R) 0 unit SC ACHS [facility]; Protocol Last Admin: 06/02/18 08:30 Dose: Not Given Levothyroxine Sodium (Synthroid) 50 mcg PO DAILY@0630 [facility] Last Admin: 06/02/18 06:27 Dose: 50 mcg Lisinopril (Zestril) 20 mg PO DAILY [facility] Last Admin: 06/02/18 09:50 Dose: Not Given Nitroglycerin (Nitrostat Sl Tab) 0.4 mg SL Q5M PRN PRN Reason: Other, CHEST PAIN Rosuvastatin Calcium (Crestor) 10 mg PO HS [facility] Last Admin: 06/01/18 22:00 Dose: 10 mg Sevelamer Carbonate (Renvela) 800 mg PO TIDCC [facility] Last Admin: 06/02/18 09:00 Dose: 800 mg - Labs Labs: 06/02/18 06:17 06/01/18 08:24 PT 12.5 SECONDS (9.7-12.2) H 05/31/18 12:59 INR 1.1 05/31/18 12:59 APTT 34 SECONDS (21-34) 05/31/18 12:59 - Constitutional Appears: No Acute Distress, Chronically Ill - Head Exam Head Exam: ATRAUMATIC, NORMAL INSPECTION - Eye Exam Eye Exam: EOMI, Normal appearance - Neck Exam Neck Exam: Normal Inspection. absent: Tenderness - Respiratory Exam Respiratory Exam: Clear to Ausculation Bilateral, NORMAL BREATHING PATTERN - Cardiovascular Exam Cardiovascular Exam: REGULAR RHYTHM, +S1 - GI/Abdominal Exam GI & Abdominal Exam: Soft. absent: Tenderness - Extremities Exam Extremities Exam: Normal Inspection. absent: Tenderness - Neurological Exam Neurological Exam: Awake, CN II-XII Intact - Skin Skin Exam: Dry, Warm Assessment and Plan (1) ESRD (end stage renal disease) Status: Acute (2) Type 2 diabetes mellitus with diabetic nephropathy Status: Acute - Assessment and Plan (Free Text) Plan: Dialysis now Follow cardiac recommendations If discharged can follow up with outpt dialysis clinic in AM
[2018-06-02 12:02] LABS: ALB/GLOB RATIO 1.3 (1.0-2.1); ALBUMIN 3.5 g/dL (3.5-5.0); CALCIUM 8.5 mg/dl (8.6-10.4)
[2018-06-02 12:35] VITALS: TEMP 97.4
[2018-06-02 13:36] VITALS: RESP 20; O2SAT 98
--- NOTE | 2018-06-02 14:25 | CP.PCM.PN ---
Subjective - Date & Time of Evaluation Date of Evaluation: 06/02/18 Time of Evaluation: 14:24 - Subjective Subjective: i view the ct findings as ulcerated plaque in the wall rather than a dissection no additional rx needed at present Objective - Vital Signs/Intake and Output Vital Signs (last 24 hours): Temp Pulse Resp BP Pulse Ox 97.4 F L 82 20 155/72 H 98 06/02/18 13:35 06/02/18 13:35 06/02/18 13:35 06/02/18 13:35 06/02/18 13:35 Intake and Output: 06/02/18 06/02/18 06:59 18:59 Intake Total 400 Balance 400 - Medications Medications: Current Medications Acetaminophen (Tylenol 325mg Tab) 650 mg PO Q6 PRN PRN Reason: Pain, Mild (1-3) Apixaban (Eliquis) 2.5 mg PO BID [facility] Last Admin: 06/02/18 09:50 Dose: Not Given Aspirin (Aspirin Chewable) 81 mg PO DAILY [facility] Last Admin: 06/02/18 09:50 Dose: Not Given Carvedilol (Coreg) 3.125 mg PO BID [facility] Last Admin: 06/02/18 09:50 Dose: Not Given Dextrose (Dextrose 50% Inj) 0 ml IV STAT PRN; Protocol PRN Reason: Hypoglycemia Protocol Dextrose (Glutose 15) 0 gm PO ONCE PRN; Protocol PRN Reason: Hypoglycemia Protocol Glucagon (Glucagen Diagnostic Kit) 0 mg IM STAT PRN; Protocol PRN Reason: Hypoglycemia Protocol Dextrose (Dextrose 5% In Water 1000 Ml) 1,000 mls @ 0 mls/hr IV .Q0M PRN; Protocol PRN Reason: Hypoglycemia Protocol Insulin Glargine (Lantus) 30 unit SC HS [facility] Last Admin: 06/01/18 22:43 Dose: 30 units Insulin Human Regular (Novolin R) 0 unit SC ACHS [facility]; Protocol Last Admin: 06/02/18 12:45 Dose: Not Given Levothyroxine Sodium (Synthroid) 50 mcg PO DAILY@0630 [facility] Last Admin: 06/02/18 06:27 Dose: 50 mcg Lisinopril (Zestril) 20 mg PO DAILY [facility] Last Admin: 06/02/18 09:50 Dose: Not Given Nitroglycerin (Nitrostat Sl Tab) 0.4 mg SL Q5M PRN PRN Reason: Other, CHEST PAIN Rosuvastatin Calcium (Crestor) 10 mg PO HS [facility] Last Admin: 06/01/18 22:00 Dose: 10 mg Sevelamer Carbonate (Renvela) 800 mg PO TIDCC [facility] Last Admin: 06/02/18 12:44 Dose: Not Given - Labs Labs: 06/02/18 06:17 06/02/18 10:51 PT 12.5 SECONDS (9.7-12.2) H 05/31/18 12:59 INR 1.1 05/31/18 12:59 APTT 34 SECONDS (21-34) 05/31/18 12:59
--- NOTE | 2018-06-02 15:17 | CP.PCM.DIS ---
Provider - Provider Date of Admission: 05/31/18 14:21 Attending physician: Nurys Justice MD Consults: 05/31/18 16:23 Cardiology Consult Routine Comment: Consulting Provider: Roger Garcia Consulting Physician: Roger Garcia Reason for Consult: Chest pain s/p CABG 05/31/18 16:28 Nephrology Consult Routine Comment: Consulting Provider: Michele Cain Consulting Physician: Michele Cain Reason for Consult: ESRD on HD MWF 06/01/18 17:15 Physician Consult Routine Comment: Consulting Provider: Lenard Frank Jr. Consulting Physician: Lenard Frank Jr. Reason for Consult: infrarenal aortic dissection Time Spent in preparation of Discharge (in minutes): 40 Hospital Course - Lab Results Lab Results: Most Recent Lab Values WBC 7.3 K/uL (4.8-10.8) 06/02/18 06:17 RBC 3.59 Mil/uL (4.40-5.90) L 06/02/18 06:17 Hgb 12.3 g/dL (12.0-18.0) 06/02/18 06:17 Hct 35.4 % (35.0-51.0) 06/02/18 06:17 MCV 98.7 fL (80.0-94.0) H 06/02/18 06:17 MCH 34.2 pg (27.0-31.0) H 06/02/18 06:17 MCHC 34.7 g/dL (33.0-37.0) 06/02/18 06:17 RDW 13.2 % (11.5-14.5) 06/02/18 06:17 Plt Count 181 K/uL (130-400) 06/02/18 06:17 MPV 7.3 fL (7.2-11.7) 06/02/18 06:17 Neut % (Auto) 50.7 % (50.0-75.0) 06/02/18 06:17 Lymph % (Auto) 36.8 % (20.0-40.0) 06/02/18 06:17 [place] % (Auto) 8.7 % (0.0-10.0) 06/02/18 06:17 Eos % (Auto) 3.2 % (0.0-4.0) 06/02/18 06:17 Baso % (Auto) 0.6 % (0.0-2.0) 06/02/18 06:17 Neut # (Auto) 3.7 K/uL (1.8-7.0) 06/02/18 06:17 Lymph # (Auto) 2.7 K/uL (1.0-4.3) 06/02/18 06:17 [place] # (Auto) 0.6 K/uL (0.0-0.8) 06/02/18 06:17 Eos # (Auto) 0.2 K/uL (0.0-0.7) 06/02/18 06:17 Baso # (Auto) 0.0 K/uL (0.0-0.2) 06/02/18 06:17 PT 12.5 SECONDS (9.7-12.2) H 05/31/18 12:59 INR 1.1 05/31/18 12:59 APTT 34 SECONDS (21-34) 05/31/18 12:59 Sodium 132 mmol/L (132-148) 06/02/18 10:51 Potassium 4.4 mmol/L (3.6-5.2) 06/02/18 10:51 Chloride 98 mmol/L (98-107) 06/02/18 10:51 Carbon Dioxide 23 mmol/L (22-30) 06/02/18 10:51 Anion Gap 15 (10-20) 06/02/18 10:51 BUN 51 mg/dL (9-20) H 06/02/18 10:51 Creatinine 3.3 mg/dL (0.8-1.5) H 06/02/18 10:51 Est GFR ( Amer) 22 06/02/18 10:51 Est GFR (Non-Af Amer) 18 06/02/18 10:51 POC Glucose (mg/dL) 134 mg/dL (65-110) H 06/02/18 11:33 Random Glucose 160 mg/dL (75-110) H D 06/02/18 10:51 Hemoglobin A1c 9.4 % (4.2-6.5) H 06/01/18 08:24 Calcium 8.5 mg/dl (8.6-10.4) L 06/02/18 10:51 Phosphorus 3.8 mg/dL (2.5-4.5) 06/02/18 10:51 Magnesium 2.1 mg/dL (1.6-2.3) 06/02/18 10:51 Total Bilirubin 0.4 mg/dL (0.2-1.3) 06/02/18 10:51 AST 16 U/L (17-59) L 06/02/18 10:51 ALT 18 U/L (21-72) L D 06/02/18 10:51 Alkaline Phosphatase 86 U/L (38-126) 06/02/18 10:51 Total Creatine Kinase 36 U/L (55-170) L 06/01/18 01:05 CK-MB (Mass) 0.92 ng/mL (0.0-3.38) 06/01/18 01:05 Troponin I < 0.0120 ng/mL (0.00-0.120) 06/01/18 01:05 NT-Pro-B Natriuret Pep 1350 pg/mL (0-900) H 05/31/18 12:59 Total Protein 6.2 g/dL (6.3-8.3) L 06/02/18 10:51 Albumin 3.5 g/dL (3.5-5.0) 06/02/18 10:51 Globulin 2.7 gm/dL (2.2-3.9) 06/02/18 10:51 Albumin/Globulin Ratio 1.3 (1.0-2.1) 06/02/18 10:51 Triglycerides 94 mg/dL (0-149) 06/01/18 08:24 Cholesterol 121 mg/dL (0-199) 06/01/18 08:24 LDL Cholesterol Direct 53 mg/dL (0-129) 06/01/18 08:24 HDL Cholesterol 45 mg/dL (30-70) 06/01/18 08:24 Thyroxine (T4) 7.20 ug/dL (5.5-11.0) 06/01/18 08:24 TSH 3rd Generation 2.09 mIU/L (0.46-4.68) 06/01/18 08:24 - Hospital Course Hospital Course: HPI: Patient is an 83 year old male with past medical history of congestive heart failure, coronary artery disease with history of CABG on 07/2017, diabetes mellitus, end-stage renal disease on hemodialysis Wednesday/Wednesday/Wednesday, and hypothyroidism presents to ED complaining of chest pain last night. Patient states he has 3-4 nighttime episodes of chest pain per week for the past 6 months, however yesterday's episode was so severe that he could not sleep. Patient usually takes an unknown medication to alleviate the chest pain, however he ran out yesterday. Pain is described as sharp substernal and across the chest . The pain lasts for hours, sometimes throughout the entire night. It is not associated with exertion. Episodes are sometimes associated with palpitations. Denies shortness of breath, nausea, reflux, vomiting, fever, chills, LE swelling and any other associated symptoms. Patient last saw his lab systems analyst, Dr. Garcia, 2 months ago, however has not informed him that he is experiencing chest pain. Patient's last dialysis session was on Wednesday due to being a holiday week. Patient is medically stable for discharge to home, as per Dr. Justice. Patient is instructed to continue all home medications as currently prescribed. Please follow up with your primary care provider (Dr. Biggs) within 1 week of discharge for continued care and management. If symptoms worsen, please return to the ED immediately. Per Nephrology recommendations, please follow up with outpatient dialysis center in the morning. The following is a summary of hospital course. For full detail, please refer to EMR: Suspected infrarenal aortic dissection -CT angiogram (06/01): no evidence of thoracic or upper abdominal aortic aneurysm. 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 The distal extent of the dissection is not included in this exam. There is calcified atherosclerotic plaque, probable ulcerated plaque seen in the upper abdominal aorta. 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 -CT angiogram abdomen/pelvis (06/02): Small partially thrombosed dissections identified at the infrarenal abdominal aorta with partially captured R common iliac artery dissection without thrombus. No thoracic aortic dissection appreciated. Follow-up pelvis CT with contrast advised to complete this exam in no less than 24 hrs. -Vascular surgery recommendations (Dr. Frank) appreciated -CT findings suggestive of ulcerated plaque in the wall rather than a dissection -no acute surgical intervention required at this time -medically stable for discharge Chest Pain, r/o ACS--resolved Hx CAD s/p CABG (07/2017) Chronic systolic HF, stable -EKG (05/31): NSR at 92 bpm, abnormal QRS-T angle -troponin x3 negative -Thyroid panel wnl -Lipid panel wnl -ProBNP: 1350, [place] [address] during 07/2017 admission -ECHO (07/2017): EF 20-25% -CXR (05/31): Dense atherosclerotic calcification of the aorta. Median sternotomy wires with evidence of CABG. Cardiac valve prosthesis. No focal consolidations. -Cardiology recs (Dr. Garcia) appreciated -ECHO (06/02): RV systolic pressure ~46 mmHg, compatible with moderate pulmonary HTN. Moderate tricuspid regurgitation. Moderate mitral annular calcification with moderate regurgitation, s/p prosthetic mitral valve ring insertion. There is a secundum type ASD or PFO with L to R shunt. Possible Grade II diastolic dysfunction, pseudonormal filling dynamics. -ASA 81 mg PO daily -Eliquis 2.5 mg PO BID -Crestor 10 mg PO HS -Coreg 3.125mg PO daily ESRD on HD MWF - Pt goes to [facility] in [place] -Last dialysis session was on Tuesday 05/29 due to holiday week -Renvela 800mg PO TIDCC, home med -Nephrology (Dr. Cain) recs appreciated -maintenance HD, session scheduled today -can follow up with outpatient dialysis clinic in AM DM -HbA1c: 9.4 -ISS -Lantus 30 units SC -accuchecks ACHS -hypoglycemic protocol HTN -Lisinopril 20mg PO daily -Coreg 3.125 PO daily Hypothyroidism -thyroid panel wnl -Levothyroxine 50mcg PO daily PPx, Diet, Disposition -DVT ppx: SCDs, home eliquis -GI ppx: not indicated -Diet: HHD, renal diet Case discussed with Dr. Reshma Leal DO, PGY-1 - Date & Time of H&P Date of H&P: 06/02/18 Time of H&P: 15:12 Discharge Exam - Head Exam Head Exam: ATRAUMATIC, NORMAL INSPECTION, NORMOCEPHALIC - Eye Exam Eye Exam: EOMI, Normal appearance Pupil Exam: NORMAL ACCOMODATION - ENT Exam ENT Exam: Mucous Membranes Moist, Normal Exam - Neck Exam Neck exam: Full Rom, Normal Inspection - Respiratory Exam Respiratory Exam: Clear to PA & Lateral, NORMAL BREATHING PATTERN, UNREMARKABLE. absent: Accessory Muscle Use, Rales, Rhonchi, Wheezes, Respiratory Distress, Stridor - Cardiovascular Exam Cardiovascular Exam: REGULAR RHYTHM, +S1, +S2 - GI/Abdominal Exam GI & Abdominal Exam: Normal Bowel Sounds, Soft, Unremarkable. absent: Distended, Firm, Pulsatile Mass, Rebound, Rigid, Tenderness - Extremities Exam Extremities exam: normal capillary refill, normal inspection, pedal pulses present - Back Exam Back exam: NORMAL INSPECTION - Neurological Exam Neurological exam: Alert, Oriented x3 - Skin Skin Exam: Dry, Intact, Normal Color, Warm Discharge Plan - Follow Up Plan Condition: STABLE Disposition: HOME/ ROUTINE Additional Instructions: Patient is medically stable for discharge to home, as per Dr. Justice. Patient is instructed to continue all home medications as currently prescribed. Please follow up with your primary care provider (Dr. Biggs) within 1 week of discharge for continued care and management. If symptoms worsen, please return to the ED immediately. Per Nephrology recommendations, please follow up with outpatient dialysis center in the morning.
[2018-06-02 15:56] VITALS: BP 181/80; PULSE 79
== END 2018-06-02 15:47 | disposition home or self-care (01) ==
LOC: C.ER 12:31 → C.9E 14:21 → C.6T 15:55 → C.5S 16:01
PROVIDERS: ADMIT Internal Medicine; ATTEND Internal Medicine
DX: R07.9 Chest pain, unspecified (principal); I13.2 Hypertensive heart and chronic kidney disease with heart failure and with stage 5 chronic kidney disease, or end stage renal disease; I25.10 Atherosclerotic heart disease of native coronary artery without angina pectoris; E78.5 Hyperlipidemia, unspecified; I25.2 Old myocardial infarction; I27.20 Pulmonary hypertension, unspecified; I50.22 Chronic systolic (congestive) heart failure; E11.22 Type 2 diabetes mellitus with diabetic chronic kidney disease; E03.9 Hypothyroidism, unspecified; N18.6 End stage renal disease; I71.00 Dissection of unspecified site of aorta; I71.4 Abdominal aortic aneurysm, without rupture; E11.21 Type 2 diabetes mellitus with diabetic nephropathy; J44.9 Chronic obstructive pulmonary disease, unspecified; I70.0 Atherosclerosis of aorta; Z79.01 Long term (current) use of anticoagulants; Z79.4 Long term (current) use of insulin; Z79.82 Long term (current) use of aspirin; Z83.3 Family history of diabetes mellitus; Z95.1 Presence of aortocoronary bypass graft; Z99.2 Dependence on renal dialysis; Z95.2 Presence of prosthetic heart valve
CPT/HCPCS: 36415; 71045; 71260; 71275; 74160; 80053; 80061; 82550; 82948; 83036; 83735; 83880; 84100; 84436; 84443; 84484; 85025; 85610; 85730; 93005; 93306; 99285; G0257; G0378; J7070; Q9967

== ENCOUNTER 2018-08-16 09:56 | Inpatient (IN) | payer MEDICARE, MEDICAID ==
[2018-08-16 09:56] VITALS: BMI 25.6
[2018-08-16 11:24] LABS: BASO # 0.1 K/uL (0.0-0.2); BASO % 1.1 % (0.0-2.0); EOS # 0.2 K/uL (0.0-0.7); EOS % 2.4 % (0.0-4.0); HEMOGLOBIN 12.4 g/dL (12.0-18.0); LYMPH # 1.8 K/uL (1.0-4.3); LYMPH % 26.4 % (20.0-40.0); MEAN CORPUSCULAR HEMOGLOBIN 35.1 pg (27.0-31.0); MEAN CORPUSCULAR HGB CONC 34.1 g/dL (33.0-37.0); MEAN PLATELET VOLUME 7.5 fL (7.2-11.7); MONO # 0.6 K/uL (0.0-0.8); MONO % 8.5 % (0.0-10.0); NEUT # 4.3 K/uL (1.8-7.0); NEUT % 61.6 % (50.0-75.0); RBC 3.54 Mil/uL (4.40-5.90); RED CELL DISTRIBUTION WIDTH 14.5 % (11.5-14.5)
--- NOTE | 2018-08-16 11:29 | C.PDOC ---
History Of Present Illness 83 y/o male,w/PMhx of HTN,diabetes, COPD, and ESRD, presents to the ER complaining of weakness to right hand. Patient states that had dialysis yesterday and the staff placed blood pressure cuff on his arm for a long period of time. Patient reports that he began having right hand weakness after they removed the cuff. Denies having arm pain, headache, diazziness, fever,chills, CP,SOB, nausea, and vomiting. Time Seen by Provider: 08/16/18 10:27 Chief Complaint (Nursing): Upper Extremity Problem/Injury History Per: Patient History/Exam Limitations: no limitations Onset/Duration Of Symptoms: Days Current Symptoms Are (Timing): Still Present Severity: Moderate Past Medical History Reviewed: Historical Data, Nursing Documentation, Vital Signs Vital Signs: Last Vital Signs Temp 97.4 F L 08/16/18 10:09 Pulse 85 08/16/18 10:09 Resp 18 08/16/18 10:09 BP 181/79 H 08/16/18 10:09 Pulse Ox 100 08/16/18 10:09 - Medical History PMH: Anemia, Asthma, CHF, COPD, Diabetes, HTN, Hypercholesterolemia, Hypo thyroidism, Peripheral Edema, End Stage Renal Disease, Chronic Kidney Disease Surgical History: CABG - [facility] (08/08/17) ASSISTANCE WITH RESPIRATORY VENTILATION, 24-96 HRS, CPAP (09/04/16) BYPASS L BRACH ART TO UP ARM VEIN W AUTOL VN, OPEN (09/04/16) FLUOROSCOPY OF LEFT HEART USING OTHER CONTRAST (08/08/17) FLUOROSCOPY OF MULTIPLE CORONARY ARTERIES USING OTH CONTRAST (08/08/17) INSERTION OF ENDOTRACHEAL AIRWAY INTO TRACHEA, VIA OPENING (09/04/16) INSERTION OF INFUSION DEV INTO SUP VENA CAVA, PERC APPROACH (09/04/16) MEASURE OF CARDIAC SAMPL & PRESSURE, L HEART, PERC APPROACH (08/08/17) PERFORMANCE OF URINARY FILTRATION, MULTIPLE (12/08/16) PLAIN RADIOGRAPHY OF LEFT HEART USING OTHER CONTRAST (09/04/16) PLAIN RADIOGRAPHY OF MULT COR ART USING OTH CONTRAST (09/04/16) RESPIRATORY VENTILATION, GREATER THAN 96 CONSECUTIVE HOURS (09/04/16) REVISION OF SYNTHETIC SUBSTITUTE IN UP VEIN, OPEN APPROACH (12/08/16) Family History: States: No Known Family Hx - Social History Hx Alcohol Use: No Hx Substance Use: No - Immunization History Hx Tetanus Toxoid Vaccination: Yes Hx Influenza Vaccination: Yes Hx Pneumococcal Vaccination: Yes Review Of Systems Except As Marked, All Systems Reviewed And Found Negative. Constitutional: Negative for: Fever, Chills Cardiovascular: Negative for: Chest Pain Respiratory: Negative for: Shortness of Breath Gastrointestinal: Negative for: Nausea, Vomiting Musculoskeletal: Positive for: Hand Pain (right hand pain) Neurological: Positive for: Weakness (right hand) Physical Exam - Physical Exam Appears: Non-toxic, No Acute Distress Skin: Normal Color, Warm, Dry Head: Atraumatic, Normacephalic Eye(s): bilateral: Normal Inspection Nose: Normal Oral Mucosa: Moist Neck: Supple Chest: Symmetrical Cardiovascular: Rhythm Regular Respiratory: Normal Breath Sounds, No Rales, No Rhonchi, No Wheezing Gastrointestinal/Abdominal: Normal Exam, Soft, No Tenderness, No Guarding, No Rebound Extremity: Normal ROM, No Tenderness, Capillary Refill (< 2 seconds), No Deformity, No Swelling Pulses: Right Radial: Normal Neurological/Psych: Oriented x3, Normal Speech, No Normal Motor (decreased hat lining paster strength in right hand), No Normal Sensation (unable to perform due to patient is not complaint with the exam), Other (mild protonator drift) ED Course And Treatment - Laboratory Results Result Diagrams: 08/16/18 11:18 08/16/18 11:18 O2 Sat by Pulse Oximetry: 100 (RA) Pulse Ox Interpretation: Normal - Other Rad CXR X-Ray: Viewed By Me, Read By Radiologist Interpretation: Date of service: 08/16/2018. PROCEDURE: CHEST RADIOGRAPH, 1 VIEW. HISTORY: Right arm weakness. COMPARISON: 05/31/2018. FINDINGS: LUNGS: No consolidation seen. PLEURA: No pneumothorax or pleural fluid seen. CARDIOVASCULAR: There is presence of aortic atherosclerotic calcification on x- ray. Mild cardiomegaly. No significant appearing pulmonary venous congestion.. Midline sternotomy and coronary bypass surgery changes present. Left axillary vascular stent in place. Valvular prosthesis in place. OSSEOUS STRUCTURES: Diffuse thoraco lumbar spondylosis. Bilateral shoulder arthrosis. VISUALIZED UPPER ABDOMEN: Normal. OTHER FINDINGS: None. IMPRESSION: Midline sternotomy and CABG status suggested. Valvular prosthesis in place mild cardiomegaly. No significant appearing pulmonary venous congestion. No consolidation. Left axillary vascular stent-similarNo interval pathology noted. - CT Scan/US CT-Head Other Rad Studies (CT/US): Read By Radiologist, Radiology Report Reviewed CT/US Interpretation: Date of service: 08/16/2018. PROCEDURE: CT HEAD WITHOUT CONTRAST. HISTORY: right upper extremity weakness. COMPARISON: 07/04/2012. TECHNIQUE: Axial computed tomography images were obtained through the head/brain without intravenous contrast. Radiation dose: Total exam DLP = 1066.13 mGy-cm. This CT exam was performed using one or more of the following dose reduction techniques: Automated exposure control, adjustment of the mA and/or kV according to patient size, and/or use of iterative reconstruction technique. FINDINGS: HEMORRHAGE: No intracranial hemorrhage. BRAIN: There is a chronic lacunar infarction in the left basal ganglia. There are mild chr onic microangiopathic changes. There is no abnormal extra-axial fluid collection. There is no territorial infarction. The midline sagittal structures are normal. There are scattered nonspecific calcifications in bilateral centrum semiovale stable and likely related to remote infection/inflammation. There are senile bilateral basal ganglia calcifications and calcifications in the dentate nuclei of the cerebellar hemispheres. There are coarse atherosclerotic calcifications in the cavernous carotid arteries. There is redemonstration of 1.5 x 1.4 cm well-circumscribed mm round hyperdense mass in the right cerebellopontine angle cisterns not significantly changed in size and morphology since the prior examination. No evidence of significant mass effect. VENTRICLES: There is mild age-related global parenchymal volume loss and proportionate enlargement of the ventricles and cortical sulci. CALVARIUM: There is no calvarial fracture or extracranial soft tissue swelling. PARANASAL SINUSES: There is moderate polypoid mucosal thickening in the ethmoid air cells and left frontal sinus. The remaining included paranasal sinuses are clear. MASTOID AIR CELLS: Small right mastoid effusion. The left mastoid air cells are clear. OTHER FINDINGS: None. IMPRESSION: 1. No acute intracranial abnormality. If there is a persistent focal neurologic deficit and an ongoing clinical concern for acute infarction, an MRI of the brain without intravenous contrast would be a more sensitive modality for evaluation of hyperacute/acute ischemic infarction. 2. Mild chronic microangiopathic changes and mild age- related global parenchymal volume loss. 3. Stable 1.5 x 1.4 cm round extra- axial mass in the right cerebellopontine angle cistern statistically most compatible with a meningioma. Correlation with MRI of the brain without and with intravenous contrast with IAC protocol is recommended for definitive characterization. 5. Chronic left frontal and ethmoid sinusitis. Progress Note: Labs, UA, EKG, CXR, and CT-Head ordered. Case was d/w Hospitalist who accepted patient to his service for observation. Disposition - Disposition Disposition: HOSPITALIZED Disposition Time: 15:12 Condition: FAIR - Clinical Impression Clinical Impression: ESRD (end stage renal disease), Weakness of upper extremity - PA / CNC LASER OPERATOR / Resident Statement MD/DO has reviewed & agrees with the documentation as recorded. - Scribe Statement The provider has reviewed the documentation as recorded by the Scribe Radha Selvin Provider Attestation All medical record entries made by the Scribe were at my direction and personally dictated by me. I have reviewed the chart and agree that the record accurately reflects my personal performance of the history, physical exam, medical decision making, and the department course for this patient. I have also personally directed, reviewed, and agree with the discharge instructions and disposition. Decision To Admit - Pt Status Changed To: Hospital Disposition Of: Observation - . Bed Request Type: Telemetry Admitting Physician: Mahad Casey Patient Diagnosis: ESRD (end stage renal disease), Weakness of upper extremity
[2018-08-16 11:30] LABS: INR 1.4; PROTHROMBIN TIME 15.3 SECONDS (9.7-12.2)
[2018-08-16 11:37] LABS: ALB/GLOB RATIO 1.6 (1.0-2.1); ALBUMIN 3.8 g/dL (3.5-5.0); ALT/SGPT 6 U/L (21-72); AST/SGOT 21 U/L (17-59); BLOOD UREA NITROGEN 40 mg/dL (9-20); CALCIUM 8.5 mg/dl (8.6-10.4); GFR NON-AFRICAN AMERICAN 20
[2018-08-16 11:48] LABS: CK-MB 0.79 ng/mL (0.0-3.38)
--- NOTE | 2018-08-16 12:08 | CT ---
Date of service: 08/16/2018 PROCEDURE: CT HEAD WITHOUT CONTRAST. HISTORY: right upper extremity weakness COMPARISON: 07/04/2012. TECHNIQUE: Axial computed tomography images were obtained through the head/brain without intravenous contrast. Radiation dose: Total exam DLP = 1066.13 mGy-cm. This CT exam was performed using one or more of the following dose reduction techniques: Automated exposure control, adjustment of the mA and/or kV according to patient size, and/or use of iterative reconstruction technique. FINDINGS: HEMORRHAGE: No intracranial hemorrhage. BRAIN: There is a chronic lacunar infarction in the left basal ganglia. There are mild chronic microangiopathic changes. There is no abnormal extra-axial fluid collection. There is no territorial infarction. The midline sagittal structures are normal. There are scattered nonspecific calcifications in bilateral centrum semiovale stable and likely related to remote infection/inflammation. There are senile bilateral basal ganglia calcifications and calcifications in the dentate nuclei of the cerebellar hemispheres. There are coarse atherosclerotic calcifications in the cavernous carotid arteries. There is redemonstration of 1.5 x 1.4 cm well-circumscribed mm round hyperdense mass in the right cerebellopontine angle cisterns not significantly changed in size and morphology since the prior examination. No evidence of significant mass effect. VENTRICLES: There is mild age-related global parenchymal volume loss and proportionate enlargement of the ventricles and cortical sulci. CALVARIUM: There is no calvarial fracture or extracranial soft tissue swelling. PARANASAL SINUSES: There is moderate polypoid mucosal thickening in the ethmoid air cells and left frontal sinus. The remaining included paranasal sinuses are clear. MASTOID AIR CELLS: Small right mastoid effusion. The left mastoid air cells are clear. OTHER FINDINGS: None. IMPRESSION: 1. No acute intracranial abnormality. If there is a persistent focal neurologic deficit and an ongoing clinical concern for acute infarction, an MRI of the brain without intravenous contrast would be a more sensitive modality for evaluation of hyperacute/acute ischemic infarction. 2. Mild chronic microangiopathic changes and mild age-related global parenchymal volume loss. 3. Stable 1.5 x 1.4 cm round extra-axial mass in the right cerebellopontine angle cistern statistically most compatible with a meningioma. Correlation with MRI of the brain without and with intravenous contrast with IAC protocol is recommended for definitive characterization. 5. Chronic left frontal and ethmoid sinusitis.
[2018-08-16 12:54] LABS: SQUAMOUS EPITHIAL 1 /hpf (0-5); URINE BACTERIA RARE (<OCC); URINE BILIRUBIN NEGATIVE (NEGATIVE); URINE BLOOD NEGATIVE (NEGATIVE); URINE CLARITY Clear (Clear); URINE COLOR Yellow (YELLOW); URINE GLUCOSE (UA) 3+ mg/dL (Normal); URINE LEUKOCYTE ESTERASE NEG Leu/uL (Negative); URINE PROTEIN 3+ mg/dL (NEGATIVE); URINE UROBILINOGEN NORMAL mg/dL (0.2-1.0)
--- NOTE | 2018-08-16 13:40 | RAD ---
Date of service: 08/16/2018 PROCEDURE: CHEST RADIOGRAPH, 1 VIEW HISTORY: Right arm weakness COMPARISON: 05/31/2018 FINDINGS: LUNGS: No consolidation seen PLEURA: No pneumothorax or pleural fluid seen. CARDIOVASCULAR: There is presence of aortic atherosclerotic calcification on x-ray. Mild cardiomegaly. No significant appearing pulmonary venous congestion.. Midline sternotomy and coronary bypass surgery changes present Left axillary vascular stent in place Valvular prosthesis in place. OSSEOUS STRUCTURES: Diffuse thoraco lumbar spondylosis. Bilateral shoulder arthrosis. VISUALIZED UPPER ABDOMEN: Normal. OTHER FINDINGS: None. IMPRESSION: Midline sternotomy and CABG status suggested. Valvular prosthesis in place mild cardiomegaly. No significant appearing pulmonary venous congestion. No consolidation. Left axillary vascular stent-similarNo interval pathology noted.
--- NOTE | 2018-08-16 15:20 | CP.PCM.HP ---
<David Moralez - Last Filed: 08/16/18 17:25> History of Present Illness - History of Present Illness History of Present Illness: "R arm numb" 83M presents with a one day history of R arm weakness after HD yesterday. Pt's BP cuff was on very tight, pt believes that when he called to the dialysis staff, they did not understand him. Pt said when he was done dialyzing his arm felt numb and weak from the distal humerus down. Pt went home because he thought it was just from the cuff however the next morning the deficits remained- prompting him to come to the ED. At this time the Pt feels he is regaining strength and sensation in the forearm and he is able to flex at the elbow, he i sl now able to palmar flex and to flex the digits at the MTPs and DIPs. PT reports Remaining deficits with wrist extension and digit extension. Pt reports his sensation has returned all the way down to the DIPs in all 5 digits. ROS: POS numbness and weakness in DIPs NEG CP SOB FC NV, Headache, numbness in face, change in speach, memory deficits, syncope, palps, sick contacts, HD or Rx noncompliance PMHx: CHF, CAD, DM, ESRD on HD MWF ([facility] in [place]) PSHx: CABG 07/2017, L AV fistula Meds: Eliquis 2.5 daily, Asa 81 daily, Coreg 3.125 daily, Glargine 30 SC HS, Levothyroxine 50mcg daily, Lisinopril 20mg daily, Crestor 10mg Sevelamir 800 TID Allergies: NKDA FamHx: Father [place] in 60s, Mother had DM, Son at 42 years old from DM and multiple co-morbidities SocHx: Denies tobacco, alcohol, drugs. Lives with his son Jose and his . Proxy: Son, Jose Chavez, Code status: Full code PMD: Dr. Biggs, Cardio: Dr. Garcia Present on Admission - Present on Admission Any Indicators Present on Admission: No Review of Systems - Review of Systems All systems: reviewed and no additional remarkable complaints except (as per hpi) Past Patient History - Infectious Disease Hx of Infectious Diseases: None - Past Medical History & Family History Past Medical History?: Yes - Past Social History Smoking Status: Never Smoked - CARDIAC Hx Congestive Heart Failure: Yes Hx Hypercholesterolemia: Yes Hx Hypertension: Yes Hx Peripheral Edema: Yes - PULMONARY Hx Asthma: Yes Hx Chronic Obstructive Pulmonary Disease (COPD): Yes - NEUROLOGICAL Hx Neurological Disorder: No - HEENT Hx HEENT Problems: Yes Hx Cataracts: Yes - RENAL Hx Chronic Kidney Disease: Yes - ENDOCRINE/METABOLIC Hx Hypothyroidism: Yes - HEMATOLOGICAL/ONCOLOGICAL Hx Anemia: Yes - INTEGUMENTARY Hx Dermatological Problems: No - GASTROINTESTINAL Hx Gastrointestinal Disorders: No - GENITOURINARY/GYNECOLOGICAL Hx Genitourinary Disorders: No - PSYCHIATRIC Hx Substance Use: No - SURGICAL HISTORY Hx Coronary Artery Bypass Graft: Yes - ANESTHESIA Hx Anesthesia: Yes Hx Anesthesia Reactions: No Hx Malignant Hyperthermia: No Meds Allergies/Adverse Reactions: Allergies Allergy/AdvReac Type Severity Reaction Status Date / Time No Known Allergies Allergy Verified 08/16/18 10:10 Physical Exam - Additional Findings Additional findings: - Head Exam Head Exam: ATRAUMATIC, NORMAL INSPECTION, NORMOCEPHALIC - Eye Exam Eye Exam: EOMI, Normal appearance Pupil Exam: NORMAL ACCOMODATION - ENT Exam ENT Exam: Mucous Membranes Moist, Normal Exam - Neck Exam Neck exam: Full Rom, Normal Inspection - Respiratory Exam Respiratory Exam: Clear to PA & Lateral, NORMAL BREATHING PATTERN, UNREMARKABLE. absent: Accessory Muscle Use, Rales, Rhonchi, Wheezes, Respiratory Distress, Stridor - Cardiovascular Exam Cardiovascular Exam: REGULAR RHYTHM, +S1, +S2 - GI/Abdominal Exam GI & Abdominal Exam: Normal Bowel Sounds, Soft, Unremarkable. absent: Distended, Firm, Pulsatile Mass, Rebound, Rigid, Tenderness - Extremities Exam Extremities exam: normal capillary refill, normal inspection, pedal pulses present - Back Exam Back exam: NORMAL INSPECTION - Neurological Exam Neurological exam: Alert, Oriented x3 Weakness noted in the DIPs L sided extensor digitorums Numbness on all 5 distal phalanges- sensitive to deep pinprick no facial droop noted no tounge / uvual deviation, memory intact, no facial numbness - Skin Skin Exam: Dry, Intact, Normal Color, Warm Results - Vital Signs Recent Vital Signs: Last Vital Signs Temp 97.4 F L 08/16/18 10:09 Pulse 83 08/16/18 14:20 Resp 16 08/16/18 14:20 BP 174/75 H 08/16/18 14:20 Pulse Ox 100 08/16/18 15:16 - Labs Result Diagrams: 08/16/18 11:18 08/16/18 11:18 Labs: Laboratory Results - last 24 hr 08/16/18 08/16/18 08/16/18 11:18 11:18 11:18 WBC 7.0 RBC 3.54 L Hgb 12.4 Hct 36.5 MCV 103.0 H D MCH 35.1 H MCHC 34.1 RDW 14.5 Plt Count 247 MPV 7.5 Neut % (Auto) 61.6 Lymph % (Auto) 26.4 [place] % (Auto) 8.5 Eos % (Auto) 2.4 Baso % (Auto) 1.1 Neut # (Auto) 4.3 Lymph # (Auto) 1.8 [place] # (Auto) 0.6 Eos # (Auto) 0.2 Baso # (Auto) 0.1 PT 15.3 H INR 1.4 APTT 42 H Sodium 134 Potassium 4.2 Chloride 93 L Carbon Dioxide 33 H Anion Gap 12 BUN 40 H Creatinine 3.0 H Est GFR ( Amer) 24 Est GFR (Non-Af Amer) 20 Random Glucose 271 H D Calcium 8.5 L Total Bilirubin 0.6 AST 21 ALT 6 L D Alkaline Phosphatase 79 Total Creatine Kinase 31 L CK-MB (Mass) 0.79 Troponin I < 0.0120 Total Protein 6.2 L Albumin 3.8 Globulin 2.4 Albumin/Globulin Ratio 1.6 Urine Color Urine Clarity Urine pH Ur Specific [place] Urine Protein Urine Glucose (UA) Urine Ketones Urine Blood Urine Nitrate Urine Bilirubin Urine Urobilinogen Ur Leukocyte Esterase Urine WBC (Auto) Urine RBC (Auto) Ur Squamous Epith Cells Urine Bacteria 08/16/18 12:32 WBC RBC Hgb Hct MCV MCH MCHC RDW Plt Count MPV Neut % (Auto) Lymph % (Auto) [place] % (Auto) Eos % (Auto) Baso % (Auto) Neut # (Auto) Lymph # (Auto) [place] # (Auto) Eos # (Auto) Baso # (Auto) PT INR APTT Sodium Potassium Chloride Carbon Dioxide Anion Gap BUN Creatinine Est GFR ( Amer) Est GFR (Non-Af Amer) Random Glucose Calcium Total Bilirubin AST ALT Alkaline Phosphatase Total Creatine Kinase CK-MB (Mass) Troponin I Total Protein Albumin Globulin Albumin/Globulin Ratio Urine Color Yellow Urine Clarity Clear Urine pH 8.0 Ur Specific [place] 1.014 Urine Protein 3+ H Urine Glucose (UA) 3+ H Urine Ketones Negative Urine Blood Negative Urine Nitrate Negative Urine Bilirubin Negative Urine Urobilinogen Normal Ur Leukocyte Esterase Neg Urine WBC (Auto) < 1 Urine RBC (Auto) 3 Ur Squamous Epith Cells 1 Urine Bacteria Rare Assessment & Plan - Assessment and Plan (Free Text) Assessment: TIA vs CVA vs Right sided Radial compression neuropathy -Weakness noted in Extensor Digitorum of L hand -Likely radial nerve compression from tight BP Cuff- clinically improving proximal to distal -f/u MRI to r/o CVA -CT w/o contrast- chronic changes no acute findings -ASA 325 stat Hx CAD s/p CABG (07/2017) Chronic systolic HF, stable -Lisinopril 2.5 BID -Norvasc 5 daily -ASA 325mg STAT then 81 mg PO daily -Eliquis 2.5 mg PO BID -Crestor 10 mg PO HS -Coreg 3.125mg PO daily ESRD on HD MWF - Pt goes to [facility] in [place] -Last dialysis session was on Tuesday 08/15 -Renvela 800mg PO TIDCC, home med DM -HbA1c: 9.4 -ISS -Lantus 30 units SC -accuchecks ACHS -hypoglycemic protocol HTN -Lisinopril 2.5mg PO BID -Coreg 3.125 PO daily -Norvasc 5mg qd Hypothyroidism -Levothyroxine 50mcg PO daily PPx, Diet, Disposition -DVT ppx: SCDs, home eliquis [id number] -GI ppx: not indicated -Diet: HHD, renal diet DISPO f/u MRI <Mahad Casey H - Last Filed: 08/16/18 17:40> Results - Vital Signs Recent Vital Signs: Last Vital Signs Temp 97.4 F L 08/16/18 10:09 Pulse 77 08/16/18 17:01 Resp 16 08/16/18 17:01 BP 184/75 H 08/16/18 17:01 Pulse Ox 98 08/16/18 17:01 - Labs Result Diagrams: 08/16/18 11:18 08/16/18 11:18 Labs: Laboratory Results - last 24 hr 08/16/18 08/16/18 08/16/18 11:18 11:18 11:18 WBC 7.0 RBC 3.54 L Hgb 12.4 Hct 36.5 MCV 103.0 H D MCH 35.1 H MCHC 34.1 RDW 14.5 Plt Count 247 MPV 7.5 Neut % (Auto) 61.6 Lymph % (Auto) 26.4 [place] % (Auto) 8.5 Eos % (Auto) 2.4 Baso % (Auto) 1.1 Neut # (Auto) 4.3 Lymph # (Auto) 1.8 [place] # (Auto) 0.6 Eos # (Auto) 0.2 Baso # (Auto) 0.1 PT 15.3 H INR 1.4 APTT 42 H Sodium 134 Potassium 4.2 Chloride 93 L Carbon Dioxide 33 H Anion Gap 12 BUN 40 H Creatinine 3.0 H Est GFR ( Amer) 24 Est GFR (Non-Af Amer) 20 Random Glucose 271 H D Calcium 8.5 L Total Bilirubin 0.6 AST 21 ALT 6 L D Alkaline Phosphatase 79 Total Creatine Kinase 31 L CK-MB (Mass) 0.79 Troponin I < 0.0120 Total Protein 6.2 L Albumin 3.8 Globulin 2.4 Albumin/Globulin Ratio 1.6 Urine Color Urine Clarity Urine pH Ur Specific [place] Urine Protein Urine Glucose (UA) Urine Ketones Urine Blood Urine Nitrate Urine Bilirubin Urine Urobilinogen Ur Leukocyte Esterase Urine WBC (Auto) Urine RBC (Auto) Ur Squamous Epith Cells Urine Bacteria 08/16/18 12:32 WBC RBC Hgb Hct MCV MCH MCHC RDW Plt Count MPV Neut % (Auto) Lymph % (Auto) [place] % (Auto) Eos % (Auto) Baso % (Auto) Neut # (Auto) Lymph # (Auto) [place] # (Auto) Eos # (Auto) Baso # (Auto) PT INR APTT Sodium Potassium Chloride Carbon Dioxide Anion Gap BUN Creatinine Est GFR ( Amer) Est GFR (Non-Af Amer) Random Glucose Calcium Total Bilirubin AST ALT Alkaline Phosphatase Total Creatine Kinase CK-MB (Mass) Troponin I Total Protein Albumin Globulin Albumin/Globulin Ratio Urine Color Yellow Urine Clarity Clear Urine pH 8.0 Ur Specific [place] 1.014 Urine Protein 3+ H Urine Glucose (UA) 3+ H Urine Ketones Negative Urine Blood Negative Urine Nitrate Negative Urine Bilirubin Negative Urine Urobilinogen Normal Ur Leukocyte Esterase Neg Urine WBC (Auto) < 1 Urine RBC (Auto) 3 Ur Squamous Epith Cells 1 Urine Bacteria Rare Attending/Attestation - Attestation I have personally seen and examined this patient.: Yes I have fully participated in the care of the patient.: Yes I have reviewed all pertinent clinical information: Yes Notes (Text): 08/16/18 17:36 Medical attending: Patient was seen and examined by me. Reviewed the above note by the resident After discussing with the septic tank servicer it appears the patient was at his HD center when the right side blood pressure cuff was too tight - however it seems that due to language barrier he was not able to communicate this to the staff and it remained compressed. This morning he is slowly getting back sensation however he has very pronouced muscle weakness of the R hand. He has less dorsiflexion and plantar flexion. Strong pulses. He did have a CT as someone thought possibility of a CVA, it showed older area that oculd have been old infarcts. On exam he was able to raise both arms and legs > 5 seconds briskly. No facial droop, no slurred speech. He says he walked in. At this time I am ore inclined to believe that this is a radial or ulnar nerve palsy secondary to compression from the cuff he had during HD We will get a non contrast MRI and if this is ok then will discharge tommorow. Mahad Casey
[2018-08-17] MEDS: Levothyroxine 50 MCG TAB PO SCH (05:31)
[2018-08-17 07:26] LABS: BASO # 0.1 K/uL (0.0-0.2); EOS # 0.2 K/uL (0.0-0.7); EOS % 3.2 % (0.0-4.0); HEMOGLOBIN 11.9 g/dL (12.0-18.0); LYMPH # 2.3 K/uL (1.0-4.3); LYMPH % 32.6 % (20.0-40.0); MEAN CELL VOLUME 102.1 fL (80.0-94.0); MEAN CORPUSCULAR HGB CONC 34.2 g/dL (33.0-37.0); MEAN PLATELET VOLUME 7.3 fL (7.2-11.7); MONO # 0.6 K/uL (0.0-0.8); MONO % 8.1 % (0.0-10.0); NEUT # 3.9 K/uL (1.8-7.0); NEUT % 55.1 % (50.0-75.0); NRBC % 0.1 % (0.0-2.0); RBC 3.41 Mil/uL (4.40-5.90); RED CELL DISTRIBUTION WIDTH 14.4 % (11.5-14.5); WHITE BLOOD COUNT 7.1 K/uL (4.8-10.8)
[2018-08-17] MEDS ORDERED: (Novolog) Insulin Aspart, Recombinant 100 u/ml 10 ml vial SC SCH ×2 (07:30→11:30)
[2018-08-17] MEDS: (Novolog) Insulin Aspart, Recombinant 100 u/ml 10 ml vial SC SCH ×4 (09:00→23:02)
--- NOTE | 2018-08-17 09:38 | CP.PCM.DIS ---
Provider - Provider Date of Admission: 08/16/18 14:35 Attending physician: Mahad Casey DO Consults: 08/16/18 23:12 Nephrology Consult Routine Comment: Consulting Provider: Michele Cain Consulting Physician: Michele Cain Reason for Consult: esrd, dialysis patient, receives mwf Time Spent in preparation of Discharge (in minutes): 45 Hospital Course - Lab Results Lab Results: Most Recent Lab Values WBC 7.1 K/uL (4.8-10.8) 08/17/18 07:13 RBC 3.41 Mil/uL (4.40-5.90) L 08/17/18 07:13 Hgb 11.9 g/dL (12.0-18.0) L 08/17/18 07:13 Hct 34.8 % (35.0-51.0) L 08/17/18 07:13 MCV 102.1 fL (80.0-94.0) H 08/17/18 07:13 MCH 35.0 pg (27.0-31.0) H 08/17/18 07:13 MCHC 34.2 g/dL (33.0-37.0) 08/17/18 07:13 RDW 14.4 % (11.5-14.5) 08/17/18 07:13 Plt Count 241 K/uL (130-400) 08/17/18 07:13 MPV 7.3 fL (7.2-11.7) 08/17/18 07:13 Neut % (Auto) 55.1 % (50.0-75.0) 08/17/18 07:13 Lymph % (Auto) 32.6 % (20.0-40.0) 08/17/18 07:13 [place] % (Auto) 8.1 % (0.0-10.0) 08/17/18 07:13 Eos % (Auto) 3.2 % (0.0-4.0) 08/17/18 07:13 Baso % (Auto) 1.0 % (0.0-2.0) 08/17/18 07:13 Neut # (Auto) 3.9 K/uL (1.8-7.0) 08/17/18 07:13 Lymph # (Auto) 2.3 K/uL (1.0-4.3) 08/17/18 07:13 [place] # (Auto) 0.6 K/uL (0.0-0.8) 08/17/18 07:13 Eos # (Auto) 0.2 K/uL (0.0-0.7) 08/17/18 07:13 Baso # (Auto) 0.1 K/uL (0.0-0.2) 08/17/18 07:13 PT 15.3 SECONDS (9.7-12.2) H 08/16/18 11:18 INR 1.4 08/16/18 11:18 APTT 42 SECONDS (21-34) H 08/16/18 11:18 Sodium 134 mmol/L (132-148) 08/16/18 11:18 Potassium 4.2 mmol/L (3.6-5.2) 08/16/18 11:18 Chloride 93 mmol/L (98-107) L 08/16/18 11:18 Carbon Dioxide 33 mmol/L (22-30) H 08/16/18 11:18 Anion Gap 12 (10-20) 08/16/18 11:18 BUN 40 mg/dL (9-20) H 08/16/18 11:18 Creatinine 3.0 mg/dL (0.8-1.5) H 08/16/18 11:18 Est GFR ( Amer) 24 08/16/18 11:18 Est GFR (Non-Af Amer) 20 08/16/18 11:18 POC Glucose (mg/dL) 303 mg/dL (65-110) H 08/16/18 21:36 Random Glucose 271 mg/dL (75-110) H D 08/16/18 11:18 Calcium 8.5 mg/dl (8.6-10.4) L 08/16/18 11:18 Phosphorus 4.5 mg/dL (2.5-4.5) 08/17/18 07:13 Magnesium 2.3 mg/dL (1.6-2.3) 08/17/18 07:13 Total Bilirubin 0.6 mg/dL (0.2-1.3) 08/16/18 11:18 AST 21 U/L (17-59) 08/16/18 11:18 ALT 6 U/L (21-72) L D 08/16/18 11:18 Alkaline Phosphatase 79 U/L (38-126) 08/16/18 11:18 Total Creatine Kinase 31 U/L (55-170) L 08/16/18 11:18 CK-MB (Mass) 0.79 ng/mL (0.0-3.38) 08/16/18 11:18 Troponin I < 0.0120 ng/mL (0.00-0.120) 08/16/18 11:18 Total Protein 6.2 g/dL (6.3-8.3) L 08/16/18 11:18 Albumin 3.8 g/dL (3.5-5.0) 08/16/18 11:18 Globulin 2.4 gm/dL (2.2-3.9) 08/16/18 11:18 Albumin/Globulin Ratio 1.6 (1.0-2.1) 08/16/18 11:18 Urine Color Yellow (YELLOW) 08/16/18 12:32 Urine Clarity Clear (Clear) 08/16/18 12:32 Urine pH 8.0 (5.0-8.0) 08/16/18 12:32 Ur Specific [place] 1.014 (1.003-1.030) 08/16/18 12:32 Urine Protein 3+ mg/dL (NEGATIVE) H 08/16/18 12:32 Urine Glucose (UA) 3+ mg/dL (Normal) H 08/16/18 12:32 Urine Ketones Negative mg/dL (NEGATIVE) 08/16/18 12:32 Urine Blood Negative (NEGATIVE) 08/16/18 12:32 Urine Nitrate Negative (NEGATIVE) 08/16/18 12:32 Urine Bilirubin Negative (NEGATIVE) 08/16/18 12:32 Urine Urobilinogen Normal mg/dL (0.2-1.0) 08/16/18 12:32 Ur Leukocyte Esterase Neg [place]/uL (Negative) 08/16/18 12:32 Urine WBC (Auto) < 1 /hpf (0-5) 08/16/18 12:32 Urine RBC (Auto) 3 /hpf (0-3) 08/16/18 12:32 Ur Squamous Epith Cells 1 /hpf (0-5) 08/16/18 12:32 Urine Bacteria Rare (<OCC) 08/16/18 12:32 Discharge Plan - Follow Up Plan Condition: FAIR Disposition: HOME/ ROUTINE
--- NOTE | 2018-08-17 13:28 | MRI ---
Date of service: 08/16/2018 PROCEDURE: MRI BRAIN WITHOUT CONTRAST HISTORY: R hand numbness COMPARISON: CT head without contrast from 08/16/2018. TECHNIQUE: Multiplanar, multisequence MR images of the brain were obtained without intravenous contrast enhancement. FINDINGS: HEMORRHAGE: None DWI: There is focal restricted diffusion in the left posterior myers radiata and posterior superior basal ganglia. BRAIN PARENCHYMA: There is T2/FLAIR hyperintensity corresponding to the focus of restricted diffusion. There are moderate chronic microangiopathic changes. There is a chronic lacunar infarction in the left posterior inferior basal ganglia. There is no abnormal extra-axial fluid collection. There is redemonstration of a 1.5 x 1.4 cm round T1 isointense and T2 hypointense mass in the right cerebellopontine angle cistern without mass effect. VENTRICLES: There is mild age-related global parenchymal volume loss and proportionate enlargement of the ventricles and cortical sulci. CRANIUM: There is normal bone marrow signal pattern.. ORBITS: Grossly unremarkable. PARANASAL SINUSES/MASTOIDS: There is mild mucosal thickening in the paranasal sinuses, worse in the left ethmoid air cells and frontal sinus. There is a large right mastoid effusion. The left mastoid air cells are predominantly clear. VASCULAR SYSTEM: There are normal signal voids in the larger intracranial arteries. OTHER FINDINGS: None. IMPRESSION: 1. Late acute/early subacute infarction in the left posterior myers radiata and posterior superior basal ganglia. 2. Moderate chronic microangiopathic changes and mild age-related global parenchymal volume loss. Chronic lacunar infarction in the left posterior inferior basal ganglia. 3. Stable 1.5 x 1.4 cm round extra-axial mass in the right cerebellopontine angle cistern statistically most compatible with a meningioma. Important findings were discussed with nurse Rafael Irizarry on 08/17/2018 at 1:15 p.m. A preliminary report was provided by [facility]. The finding of acute/subacute infarction in the left posterior myers radiata and posterior superior basal ganglia was not mentioned in the preliminary report.
--- NOTE | 2018-08-17 13:53 | CP.PCM.PN ---
<David Moralez - Last Filed: 08/17/18 15:25> Subjective - Date & Time of Evaluation Date of Evaluation: 08/17/18 Time of Evaluation: 15:04 - Subjective Subjective: HOSPITALIST SERVICE Pt s/e at bedside, denies any new complaints, reports persistent numbness in finger tips and hand weakness, as well as deficits with wrist extension. Pt denies any visual, voice, facial, cognitive or new motors changes/deficits. Pt deneis cp sob fc nv. Pt to get HD today as per his usual schedule MWF, pt unders tands he had a minor stroke and will need to stay one more night for monitoring. Pt agrees with plan Objective - Vital Signs/Intake and Output Vital Signs (last 24 hours): Temp Pulse Resp BP Pulse Ox 97.8 F 71 20 163/70 H 97 08/17/18 07:00 08/17/18 07:00 08/17/18 07:00 08/17/18 07:00 08/17/18 07:00 Intake and Output: 08/17/18 08/17/18 06:59 18:59 Intake Total 50 Output Total 200 Balance -150 - Medications Medications: Current Medications Amlodipine Besylate (Norvasc) 5 mg PO DAILY [facility] Last Admin: 08/17/18 09:02 Dose: 5 mg Apixaban (Eliquis) 2.5 mg PO BID [facility] Last Admin: 08/17/18 09:02 Dose: 2.5 mg Aspirin (Ecotrin) 81 mg PO DAILY [facility] Last Admin: 08/17/18 09:48 Dose: 81 mg Carvedilol (Coreg) 3.125 mg PO BID [facility] Last Admin: 08/17/18 09:03 Dose: 3.125 mg Insulin Aspart (Novolog) 0 unit SC [facility]; Protocol Last Admin: 08/17/18 13:38 Dose: 3 units Levothyroxine Sodium (Synthroid) 50 mcg PO DAILY@0630 [facility] Last Admin: 08/17/18 05:31 Dose: 50 mcg Lisinopril (Zestril) 2.5 mg PO DAILY [facility] Last Admin: 08/17/18 09:48 Dose: 2.5 mg Sevelamer Carbonate (Renvela) 800 mg PO TID [facility] Last Admin: 08/17/18 09:03 Dose: 800 mg - Labs Labs: 08/17/18 07:13 08/16/18 11:18 PT 15.3 SECONDS (9.7-12.2) H 08/16/18 11:18 INR 1.4 08/16/18 11:18 APTT 42 SECONDS (21-34) H 08/16/18 11:18 Assessment and Plan - Assessment and Plan (Free Text) Assessment: 83M found to have a minor CVA Plan: L Basal ganglia CVA -Weakness noted in Extensor Digitorum of L hand -sensation decreased -MRI : L basal ganglia ischemic cva read by neurology -CT w/o contrast- chronic changes no acute findings -ASA 325 daily -crestor 10 HS -f/u MRA and Echo -F/u dopplers of LE -Neuro Dr Lawrence consulted recs appreciated -Cardio Dr Garcia consulted f/u recs, possible JENARO? Hx CAD s/p CABG (07/2017) Chronic systolic HF, stable -Lisinopril 2.5 BID -Norvasc 5 daily -ASA 325mg STAT then 81 mg PO daily -Eliquis 2.5 mg PO BID -Crestor 10 mg PO HS -Coreg 3.125mg PO daily ESRD on HD MWF - Pt goes to [facility] in [place] -Last dialysis session was on Tuesday 08/15 -Renvela 800mg PO TIDCC, home med DM -HbA1c: 9.4 -ISS -Lantus 30 units SC -accuchecks ACHS -hypoglycemic protocol HTN -Lisinopril 2.5mg PO BID -Coreg 3.125 PO daily -Norvasc 5mg qd Hypothyroidism -Levothyroxine 50mcg PO daily PPx, Diet, Disposition -DVT ppx: SCDs, home eliquis and ASA 325 -GI ppx: not indicated -Diet: HHD, renal diet DISPO f/u MRA and Echo <Mahad Casey H - Last Filed: 08/17/18 16:15> Objective - Vital Signs/Intake and Output Vital Signs (last 24 hours): Temp Pulse Resp BP Pulse Ox 97.8 F 71 20 163/70 H 97 08/17/18 07:00 08/17/18 07:00 08/17/18 07:00 08/17/18 07:00 08/17/18 07:00 Intake and Output: 08/17/18 08/17/18 06:59 18:59 Intake Total 50 Output Total 200 Balance -150 - Medications Medications: Current Medications Amlodipine Besylate (Norvasc) 5 mg PO DAILY [facility] Last Admin: 08/17/18 09:02 Dose: 5 mg Apixaban (Eliquis) 2.5 mg PO BID [facility] Last Admin: 08/17/18 09:02 Dose: 2.5 mg Aspirin (Ecotrin) 81 mg PO DAILY [facility] Last Admin: 08/17/18 09:48 Dose: 81 mg Carvedilol (Coreg) 3.125 mg PO BID [facility] Last Admin: 08/17/18 09:03 Dose: 3.125 mg Insulin Aspart (Novolog) 0 unit SC [facility]; Protocol Last Admin: 08/17/18 13:38 Dose: 3 units Levothyroxine Sodium (Synthroid) 50 mcg PO DAILY@0630 [facility] Last Admin: 08/17/18 05:31 Dose: 50 mcg Lisinopril (Zestril) 2.5 mg PO DAILY [facility] Last Admin: 08/17/18 09:48 Dose: 2.5 mg Sevelamer Carbonate (Renvela) 800 mg PO TID [facility] Last Admin: 08/17/18 14:41 Dose: 800 mg - Labs Labs: 08/17/18 07:13 08/16/18 11:18 PT 15.3 SECONDS (9.7-12.2) H 08/16/18 11:18 INR 1.4 08/16/18 11:18 APTT 42 SECONDS (21-34) H 08/16/18 11:18 Attending/Attestation - Attestation I have personally seen and examined this patient.: Yes I have fully participated in the care of the patient.: Yes I have reviewed all pertinent clinical information, including history, physical exam and plan: Yes Notes (Text): 08/17/18 16:13 Medical attending: Patient was seen and examined by me with the medical assistant cardiology We ordered an MRI last night and there is a discrepancy between the night reading and the final reading - the patient did have an relatively new infarct noted which would explain his R hand weakness. He is already on ASA and statin An echo done in May 2018 suggested he may have an septal defect so will get a cardiology evaluation in case the patient may need a JENARO Mahad Casey
--- NOTE | 2018-08-17 14:05 | CP.PCM.CON ---
History of Present Illness - History of Present Illness History of Present Illness: 83M presents with a one day history of R arm weakness after HD yesterday. Pt's BP cuff was on very tight, pt believes that when he called to the dialysis staff, they did not understand him. Pt said when he was done dialyzing his arm f elt numb and weak from the distal humerus down. Pt went home because he thought it was just from the cuff however the next morning the deficits remained- prompting him to come to the ED. At this time the Pt feels he is regaining strength and sensation in the forearm and he is able to flex at the elbow, he isl now able to palmar flex and to flex the digits at the MTPs and DIPs. PT reports Remaining deficits with wrist extension and digit extension. Pt reports his sensation has returned all the way down to the DIPs in all 5 digits. ROS: POS numbness and weakness in DIPs NEG CP SOB FC NV, Headache, numbness in face, change in speach, memory deficits, syncope, palps, sick contacts, HD or Rx noncompliance PMHx: CHF, CAD, DM, ESRD on HD MWF ([facility] in [place]) PSHx: CABG 07/2017, L AV fistula Meds: Eliquis 2.5 daily, Asa 81 daily, Coreg 3.125 daily, Glargine 30 SC HS, Lev othyroxine 50mcg daily, Lisinopril 20mg daily, Crestor 10mg Sevelamir 800 TID Allergies: NKDA FamHx: Father CT in 60s, Mother had DM, Son at 42 years old from DM and multiple co-morbidities SocHx: Denies tobacco, alcohol, drugs. Lives with his son Jose and his . Proxy: Son, Jose Chavez, Code status: Full code PMD: Dr. Biggs, Cardio: Dr. Garcia MRI head consistent with new left CVA Will need dialysis today Review of Systems - Review of Systems Systems not reviewed;Unavailable: Dementia Past Patient History - Infectious Disease Hx of Infectious Diseases: None - Past Medical History & Family History Past Medical History?: Yes Past Family History: Reviewed and not pertinent - Past Social History Smoking Status: Never Smoked Chewing Tobacco Use: No Cigar Use: No Alcohol: None Drugs: Denies Home Situation {Lives}: With Family - CARDIAC Hx Congestive Heart Failure: Yes Hx Hypercholesterolemia: Yes Hx Hypertension: Yes Hx Peripheral Edema: Yes - PULMONARY Hx Asthma: Yes Hx Chronic Obstructive Pulmonary Disease (COPD): Yes - NEUROLOGICAL Hx Neurological Disorder: No - HEENT Hx HEENT Problems: Yes Hx Cataracts: Yes - RENAL Hx Chronic Kidney Disease: Yes - ENDOCRINE/METABOLIC Hx Hypothyroidism: Yes - HEMATOLOGICAL/ONCOLOGICAL Hx Anemia: Yes - INTEGUMENTARY Hx Dermatological Problems: No - GASTROINTESTINAL Hx Gastrointestinal Disorders: No - GENITOURINARY/GYNECOLOGICAL Hx Genitourinary Disorders: No - PSYCHIATRIC Hx Substance Use: No - SURGICAL HISTORY Hx Coronary Artery Bypass Graft: Yes - ANESTHESIA Hx Anesthesia: Yes Hx Anesthesia Reactions: No Hx Malignant Hyperthermia: No Meds Home Medications: Home Medication List Medication Instructions Recorded Confirmed Type Apixaban [Eliquis] 2.5 mg PO BID #14 tab 08/17/18 Rx Aspirin [Ecotrin] 81 mg PO DAILY #14 tabec 08/17/18 Rx Carvedilol [Coreg] 3.125 mg PO BID #14 tab 08/17/18 Rx Doxylamine Succinate [Unisom Sleep 25 mg PO HS #14 tablet 08/17/18 Rx Aid] Levothyroxine Sodium 50 mcg PO DAILY #14 tablet 08/17/18 Rx Lisinopril [Zestril] 2.5 mg PO DAILY #14 tab 08/17/18 Rx Sevelamer Carbonate [Renvela] 800 mg PO TID #21 tab 08/17/18 Rx Allergies/Adverse Reactions: Allergies Allergy/AdvReac Type Severity Reaction Status Date / Time No Known Allergies Allergy Verified 08/16/18 10:10 - Medications Medications: Current Medications Amlodipine Besylate (Norvasc) 5 mg PO DAILY [facility] Last Admin: 08/17/18 09:02 Dose: 5 mg Apixaban (Eliquis) 2.5 mg PO BID [facility] Last Admin: 08/17/18 09:02 Dose: 2.5 mg Aspirin (Ecotrin) 81 mg PO DAILY [facility] Last Admin: 08/17/18 09:48 Dose: 81 mg Carvedilol (Coreg) 3.125 mg PO BID [facility] Last Admin: 08/17/18 09:03 Dose: 3.125 mg Insulin Aspart (Novolog) 0 unit SC [facility]; Protocol Last Admin: 08/17/18 13:38 Dose: 3 units Levothyroxine Sodium (Synthroid) 50 mcg PO DAILY@0630 [facility] Last Admin: 08/17/18 05:31 Dose: 50 mcg Lisinopril (Zestril) 2.5 mg PO DAILY [facility] Last Admin: 08/17/18 09:48 Dose: 2.5 mg Sevelamer Carbonate (Renvela) 800 mg PO TID [facility] Last Admin: 08/17/18 09:03 Dose: 800 mg Physical Exam - Constitutional Appears: Confused, Chronically Ill - Head Exam Head Exam: ATRAUMATIC, NORMAL INSPECTION - Eye Exam Eye Exam: EOMI, Normal appearance - Neck Exam Neck exam: Positive for: Normal Inspection. Negative for: Tenderness - Respiratory Exam Respiratory Exam: Clear to Auscultation Bilateral, NORMAL BREATHING PATTERN - Cardiovascular Exam Cardiovascular Exam: REGULAR RHYTHM, +S1 - GI/Abdominal Exam GI & Abdominal Exam: Soft. absent: Tenderness - Extremities Exam Extremities exam: Positive for: normal inspection. Negative for: tenderness - Neurological Exam Neurological exam: Motor Sensory Deficit - Skin Skin Exam: Dry, Warm Results - Vital Signs Recent Vital Signs: Last Vital Signs Temp 97.8 F 08/17/18 07:00 Pulse 71 08/17/18 07:00 Resp 20 08/17/18 07:00 BP 163/70 H 08/17/18 07:00 Pulse Ox 97 08/17/18 07:00 - Labs Result Diagrams: 08/17/18 07:13 08/16/18 11:18 Labs: Laboratory Results - last 24 hr 08/16/18 08/17/18 08/17/18 21:36 07:13 07:13 WBC 7.1 RBC 3.41 L Hgb 11.9 L Hct 34.8 L MCV 102.1 H MCH 35.0 H MCHC 34.2 RDW 14.4 Plt Count 241 MPV 7.3 Neut % (Auto) 55.1 Lymph % (Auto) 32.6 [place] % (Auto) 8.1 Eos % (Auto) 3.2 Baso % (Auto) 1.0 Neut # (Auto) 3.9 Lymph # (Auto) 2.3 [place] # (Auto) 0.6 Eos # (Auto) 0.2 Baso # (Auto) 0.1 POC Glucose (mg/dL) 303 H Phosphorus 4.5 Magnesium 2.3 Assessment & Plan - Assessment and Plan (Free Text) Assessment: ESRD new CVA CAD diabetic nephropathy Plan: dialysis now then MWF dialysis same meds neuro eval, treatment
--- NOTE | 2018-08-17 14:37 | CP.PCM.CON ---
History of Present Illness - History of Present Illness History of Present Illness: Neurology consult called by Dr. Mahad Casey. 83 yr old male who is here after having right arm numbness that started after dialysis, and then was found to improve over a day's course. He had a blood pressure cuff on the right arm and it was thought to have been secondary to a compression neuropathy. However, MRI Brain showed that he has an acute right basal ganglia stroke. He has a history of prior strokes, lacunar in nature, and currently he is without any symptoms. ROS: malaise, fatigue, no headache, nausea, vomiting or diarrhea. PMH: Htn, PMHx: CHF, CAD, DM, ESRD on HD MWF ([facility] in [place]) PSHx: CABG 07/2017, L AV fistula Meds: Eliquis 2.5 daily, Asa 81 daily, Coreg 3.125 daily, Glargine 30 SC HS, Lev othyroxine 50mcg daily, Lisinopril 20mg daily, Crestor 10mg Sevelamir 800 TID Allergies: NKDA FamHx: Father [place] in 60s, Mother had DM, Son at 42 years old from DM and multiple co-morbidities SocHx: Denies tobacco, alcohol, drugs. Lives with his son Jose and his . Proxy: Son, Jose Chavez, Code status: Full code PMD: Dr. Biggs, Cardio: Dr. Garcia / All: On exam: AAOX3. PERRL. CN 2-12 normal. EOMI. Speech fluent. VFF. MOtor: strength: right supply coordinator is 3/5, deltoid is 4/5, triceps is 4/5 Left arm and leg are 5/5 Decreased sensation in right arm to ft, gait is normal. +2 dtr ul and ll bl. Toes downgoing. No clonus. Right sided drift. NIH: 2 Review of Systems - Constitutional Constitutional: As Per HPI - Neurological Neurological: As Per HPI, Paresthesias, Weakness Past Patient History - Infectious Disease Hx of Infectious Diseases: None - Past Medical History & Family History Past Medical History?: Yes - Past Social History Smoking Status: Never Smoked - CARDIAC Hx Congestive Heart Failure: Yes Hx Hypercholesterolemia: Yes Hx Hypertension: Yes Hx Peripheral Edema: Yes - PULMONARY Hx Asthma: Yes Hx Chronic Obstructive Pulmonary Disease (COPD): Yes - NEUROLOGICAL Hx Neurological Disorder: No - HEENT Hx HEENT Problems: Yes Hx Cataracts: Yes - RENAL Hx Chronic Kidney Disease: Yes - ENDOCRINE/METABOLIC Hx Hypothyroidism: Yes - HEMATOLOGICAL/ONCOLOGICAL Hx Anemia: Yes - INTEGUMENTARY Hx Dermatological Problems: No - GASTROINTESTINAL Hx Gastrointestinal Disorders: No - GENITOURINARY/GYNECOLOGICAL Hx Genitourinary Disorders: No - PSYCHIATRIC Hx Substance Use: No - SURGICAL HISTORY Hx Coronary Artery Bypass Graft: Yes - ANESTHESIA Hx Anesthesia: Yes Hx Anesthesia Reactions: No Hx Malignant Hyperthermia: No Meds Home Medications: Home Medication List Medication Instructions Recorded Confirmed Type Apixaban [Eliquis] 2.5 mg PO BID #14 tab 08/17/18 Rx Aspirin [Ecotrin] 81 mg PO DAILY #14 tabec 08/17/18 Rx Carvedilol [Coreg] 3.125 mg PO BID #14 tab 08/17/18 Rx Doxylamine Succinate [Unisom Sleep 25 mg PO HS #14 tablet 08/17/18 Rx Aid] Levothyroxine Sodium 50 mcg PO DAILY #14 tablet 08/17/18 Rx Lisinopril [Zestril] 2.5 mg PO DAILY #14 tab 08/17/18 Rx Sevelamer Carbonate [Renvela] 800 mg PO TID #21 tab 08/17/18 Rx Allergies/Adverse Reactions: Allergies Allergy/AdvReac Type Severity Reaction Status Date / Time No Known Allergies Allergy Verified 08/16/18 10:10 - Medications Medications: Current Medications Amlodipine Besylate (Norvasc) 5 mg PO DAILY [facility] Last Admin: 08/17/18 09:02 Dose: 5 mg Apixaban (Eliquis) 2.5 mg PO BID [facility] Last Admin: 08/17/18 09:02 Dose: 2.5 mg Aspirin (Ecotrin) 81 mg PO DAILY [facility] Last Admin: 08/17/18 09:48 Dose: 81 mg Carvedilol (Coreg) 3.125 mg PO BID [facility] Last Admin: 08/17/18 09:03 Dose: 3.125 mg Insulin Aspart (Novolog) 0 unit SC [facility]; Protocol Last Admin: 08/17/18 09:00 Dose: 1 units Levothyroxine Sodium (Synthroid) 50 mcg PO DAILY@0630 [facility] Last Admin: 08/17/18 05:31 Dose: 50 mcg Lisinopril (Zestril) 2.5 mg PO DAILY [facility] Last Admin: 08/17/18 09:48 Dose: 2.5 mg Sevelamer Carbonate (Renvela) 800 mg PO TID [facility] Last Admin: 08/17/18 09:03 Dose: 800 mg Results - Vital Signs Recent Vital Signs: Last Vital Signs Temp 97.8 F 08/17/18 07:00 Pulse 71 08/17/18 07:00 Resp 20 08/17/18 07:00 BP 163/70 H 08/17/18 07:00 Pulse Ox 97 08/17/18 07:00 - Labs Result Diagrams: 08/17/18 07:13 08/16/18 11:18 Labs: Laboratory Results - last 24 hr 08/16/18 08/17/18 08/17/18 21:36 07:13 07:13 WBC 7.1 RBC 3.41 L Hgb 11.9 L Hct 34.8 L MCV 102.1 H MCH 35.0 H MCHC 34.2 RDW 14.4 Plt Count 241 MPV 7.3 Neut % (Auto) 55.1 Lymph % (Auto) 32.6 [place] % (Auto) 8.1 Eos % (Auto) 3.2 Baso % (Auto) 1.0 Neut # (Auto) 3.9 Lymph # (Auto) 2.3 [place] # (Auto) 0.6 Eos # (Auto) 0.2 Baso # (Auto) 0.1 POC Glucose (mg/dL) 303 H Phosphorus 4.5 Magnesium 2.3 Assessment & Plan - Assessment and Plan (Free Text) Assessment: MRI Brain : shows that there is a left basal ganglia stroke, which was not read by initial neuroradiologist liquefaction plant operator. It was reread and finding was communicated to physicians, and i also found this on my own evaluation. The stroke is small, and appears to be without edema, one in number. A/P: 83 yr old male with acute stroke in the left basal ganglia, likely ischemic. Plan; 1. Start IV fluids normal saline 100ccs per hour 2. aspirin 375 mg po daily 3. ECHO to evaluate prior ASD, ?JENARO 4. PT 5. Lipid profile. Our team will follow Thank you Dr. Lawrence
--- NOTE | 2018-08-17 18:58 | CARD ---
APPROVED REPORT Date of service: 08/16/2018 EKG Measurement Heart [id number] OR [id number] <Conclusion> Sinus rhythm with frequent premature ventricular complexes Anterior fascicular block Abnormal ECG
--- NOTE | 2018-08-18 00:30 | CP.PCM.CON ---
History of Present Illness - History of Present Illness History of Present Illness: 83 M with hx of CAD s.p CABG, CRF on HD admitted for CVA ECHO suggestive of ASD or PFO Bubble study tomorrow will follow CC: Right arm numbness 83M presents with a one day history of R arm weakness after HD yesterday. Pt's BP cuff was on very tight, pt believes that when he called to the dialysis staff, they did not understand him. Pt said when he was done dialyzing his arm felt numb and weak from the distal humerus down. Pt went home because he thought it was just from the cuff however the next morning the deficits remained- p rompting him to come to the ED. At this time the Pt feels he is regaining strength and sensation in the forearm and he is able to flex at the elbow, he isl now able to palmar flex and to flex the digits at the MTPs and DIPs. PT reports Remaining deficits with wrist extension and digit extension. Pt reports his sensation has returned all the way down to the DIPs in all 5 digits. ROS: POS numbness and weakness in DIPs NEG CP SOB FC NV, Headache, numbness in face, change in speach, memory de ficits, syncope, palps, sick contacts, HD or Rx noncompliance PMHx: CHF, CAD, DM, ESRD on HD MWF ([facility] in [place]) PSHx: CABG 07/2017, L AV fistula Meds: Eliquis 2.5 daily, Asa 81 daily, Coreg 3.125 daily, Glargine 30 SC HS, Levothyroxine 50mcg daily, Lisinopril 20mg daily, Crestor 10mg Sevelamir 800 TID Allergies: NKDA FamHx: Father [place] in 60s, Mother had DM, Son at 42 years old from DM and multiple co-morbidities SocHx: Denies tobacco, alcohol, drugs. Lives with his son Jose and his . Proxy: Son, Jose Chavez, Code status: Full code PMD: Dr. Biggs Present on Admission - Present on Admission Any Indicators Present on Admission: No Review of Systems - Review of Systems All systems: reviewed and no additional remarkable complaints except (as per hpi) Physical Exam - Additional Findings Additional findings: - Head Exam Head Exam: ATRAUMATIC, NORMAL INSPECTION, NORMOCEPHALIC - Eye Exam Eye Exam: EOMI, Normal appearance Pupil Exam: NORMAL ACCOMODATION - ENT Exam ENT Exam: Mucous Membranes Moist, Normal Exam - Neck Exam Neck exam: Full Rom, Normal Inspection - Respiratory Exam Respiratory Exam: Clear to PA & Lateral, NORMAL BREATHING PATTERN, UNREMARKABLE. absent: Accessory Muscle Use, Rales, Rhonchi, Wheezes, Respiratory Distress, Stridor - Cardiovascular Exam Cardiovascular Exam: REGULAR RHYTHM, +S1, +S2 - GI/Abdominal Exam GI & Abdominal Exam: Normal Bowel Sounds, Soft, Unremarkable. absent: Distended, Firm, Pulsatile Mass, Rebound, Rigid, Tenderness - Extremities Exam Extremities exam: normal capillary refill, normal inspection, pedal pulses present - Back Exam Back exam: NORMAL INSPECTION - Neurological Exam Neurological exam: Alert, Oriented x3 Weakness noted in the DIPs L sided extensor digitorums Numbness on all 5 distal phalanges- sensitive to deep pinprick no facial droop noted no tounge / uvual deviation, memory intact, no facial numbness - Skin Skin Exam: Dry, Intact, Normal Color, Warm Assessment & Plan - Assessment and Plan (Free Text) Assessment: TIA vs CVA vs Right sided Radial compression neuropathy -Weakness noted in Extensor Digitorum of L hand -Likely radial nerve compression from tight BP Cuff- clinically improving proximal to distal -f/u MRI to r/o CVA -CT w/o contrast- chronic changes no acute findings -ASA 325 stat Hx CAD s/p CABG (07/2017) Chronic systolic HF, stable -Lisinopril 2.5 BID -Norvasc 5 daily -ASA 325mg STAT then 81 mg PO daily -Eliquis 2.5 mg PO BID -Crestor 10 mg PO HS -Coreg 3.125mg PO daily ESRD on HD MWF - [facility] [place] -Last dialysis session was on Tuesday 08/15 -Renvela 800mg PO TIDCC, home med DM -HbA1c: 9.4 -ISS -Lantus 30 units SC -accuchecks ACHS -hypoglycemic protocol HTN -Lisinopril 2.5mg PO BID -Coreg 3.125 PO daily -Norvasc 5mg qd Hypothyroidism -Levothyroxine 50mcg PO daily PPx, Diet, Disposition -DVT ppx: SCDs, home eliquis asa81 -GI ppx: not indicated -Diet: HHD, renal diet 83 M with hx of CAD s.p CABG, CRF on HD admitted for CVA ECHO suggestive of ASD or PFO Bubble study/JENARO will follow Past Patient History - Infectious Disease Hx of Infectious Diseases: None - Past Medical History & Family History Past Medical History?: Yes - Past Social History Smoking Status: Never Smoked - CARDIAC Hx Congestive Heart Failure: Yes Hx Hypercholesterolemia: Yes Hx Hypertension: Yes Hx Peripheral Edema: Yes - PULMONARY Hx Asthma: Yes Hx Chronic Obstructive Pulmonary Disease (COPD): Yes - NEUROLOGICAL Hx Neurological Disorder: No - HEENT Hx HEENT Problems: Yes Hx Cataracts: Yes - RENAL Hx Chronic Kidney Disease: Yes - ENDOCRINE/METABOLIC Hx Hypothyroidism: Yes - HEMATOLOGICAL/ONCOLOGICAL Hx Anemia: Yes - INTEGUMENTARY Hx Dermatological Problems: No - GASTROINTESTINAL Hx Gastrointestinal Disorders: No - GENITOURINARY/GYNECOLOGICAL Hx Genitourinary Disorders: No - PSYCHIATRIC Hx Substance Use: No - SURGICAL HISTORY Hx Coronary Artery Bypass Graft: Yes - ANESTHESIA Hx Anesthesia: Yes Hx Anesthesia Reactions: No Hx Malignant Hyperthermia: No Meds Home Medications: Home Medication List Medication Instructions Recorded Confirmed Type Apixaban [Eliquis] 2.5 mg PO BID #14 tab 08/17/18 Rx Aspirin [Ecotrin] 81 mg PO DAILY #14 tabec 08/17/18 Rx Carvedilol [Coreg] 3.125 mg PO BID #14 tab 08/17/18 Rx Doxylamine Succinate [Unisom Sleep 25 mg PO HS #14 tablet 08/17/18 Rx Aid] Levothyroxine Sodium 50 mcg PO DAILY #14 tablet 08/17/18 Rx Lisinopril [Zestril] 2.5 mg PO DAILY #14 tab 08/17/18 Rx Sevelamer Carbonate [Renvela] 800 mg PO TID #21 tab 08/17/18 Rx Allergies/Adverse Reactions: Allergies Allergy/AdvReac Type Severity Reaction Status Date / Time No Known Allergies Allergy Verified 08/16/18 10:10 - Medications Medications: Current Medications Amlodipine Besylate (Norvasc) 5 mg PO DAILY [facility] Last Admin: 08/17/18 09:02 Dose: 5 mg Apixaban (Eliquis) 2.5 mg PO BID [facility] Last Admin: 08/17/18 18:17 Dose: 2.5 mg Aspirin (Ecotrin) 81 mg PO DAILY [facility] Last Admin: 08/17/18 09:48 Dose: 81 mg Carvedilol (Coreg) 3.125 mg PO BID [facility] Last Admin: 08/17/18 18:15 Dose: Not Given Insulin Aspart (Novolog) 0 unit SC [facility]; Protocol Last Admin: 08/17/18 23:02 Dose: Not Given Levothyroxine Sodium (Synthroid) 50 mcg PO DAILY@0630 [facility] Last Admin: 08/17/18 05:31 Dose: 50 mcg Lisinopril (Zestril) 2.5 mg PO DAILY [facility] Last Admin: 08/17/18 09:48 Dose: 2.5 mg Sevelamer Carbonate (Renvela) 800 mg PO TID [facility] Last Admin: 08/17/18 18:17 Dose: 800 mg Results - Vital Signs Recent Vital Signs: Last Vital Signs Temp 97 F L 08/17/18 22:45 Pulse 75 08/17/18 22:45 Resp 18 08/17/18 22:45 BP 140/70 08/17/18 22:45 Pulse Ox 97 08/17/18 22:45 - Labs Result Diagrams: 08/18/18 07:11 08/18/18 07:11 Labs: Laboratory Results - last 24 hr 08/17/18 08/17/18 08/17/18 06:28 07:13 07:13 WBC 7.1 RBC 3.41 L Hgb 11.9 L Hct 34.8 L MCV 102.1 H MCH 35.0 H MCHC 34.2 RDW 14.4 Plt Count 241 MPV 7.3 Neut % (Auto) 55.1 Lymph % (Auto) 32.6 [place] % (Auto) 8.1 Eos % (Auto) 3.2 Baso % (Auto) 1.0 Neut # (Auto) 3.9 Lymph # (Auto) 2.3 [place] # (Auto) 0.6 Eos # (Auto) 0.2 Baso # (Auto) 0.1 POC Glucose (mg/dL) 185 H Phosphorus 4.5 Magnesium 2.3 08/17/18 08/17/18 08/17/18 11:05 17:26 22:07 WBC RBC Hgb Hct MCV MCH MCHC RDW Plt Count MPV Neut % (Auto) Lymph % (Auto) [place] % (Auto) Eos % (Auto) Baso % (Auto) Neut # (Auto) Lymph # (Auto) [place] # (Auto) Eos # (Auto) Baso # (Auto) POC Glucose (mg/dL) 299 H 261 H 127 H Phosphorus Magnesium
[2018-08-18] MEDS: Levothyroxine 50 MCG TAB PO SCH (06:01)
[2018-08-18 07:19] LABS: BASO # 0.1 K/uL (0.0-0.2); BASO % 1.3 % (0.0-2.0); EOS # 0.2 K/uL (0.0-0.7); EOS % 3.1 % (0.0-4.0); HEMOGLOBIN 12.6 g/dL (12.0-18.0); LYMPH # 2.5 K/uL (1.0-4.3); LYMPH % 33.5 % (20.0-40.0); MEAN CELL VOLUME 101.5 fL (80.0-94.0); MEAN CORPUSCULAR HEMOGLOBIN 34.9 pg (27.0-31.0); MEAN CORPUSCULAR HGB CONC 34.4 g/dL (33.0-37.0); MEAN PLATELET VOLUME 7.4 fL (7.2-11.7); MONO # 0.6 K/uL (0.0-0.8); NEUT # 4.1 K/uL (1.8-7.0); NEUT % 54.1 % (50.0-75.0); NRBC % 0.1 % (0.0-2.0); RBC 3.6 Mil/uL (4.40-5.90); RED CELL DISTRIBUTION WIDTH 14.4 % (11.5-14.5); WHITE BLOOD COUNT 7.5 K/uL (4.8-10.8)
[2018-08-18] MEDS: (Novolog) Insulin Aspart, Recombinant 100 u/ml 10 ml vial SC SCH ×4 (07:35→22:19)
--- NOTE | 2018-08-18 09:07 | CP.PCM.PN ---
Subjective - Date & Time of Evaluation Date of Evaluation: 08/18/18 Time of Evaluation: 09:07 - Subjective Subjective: Patient seen and evaluated Denies chest pain and dyspnea Physical Exam - Additional Findings Additional findings: - Head Exam Head Exam: ATRAUMATIC, NORMAL INSPECTION, NORMOCEPHALIC - Eye Exam Eye Exam: EOMI, Normal appearance Pupil Exam: NORMAL ACCOMODATION - ENT Exam ENT Exam: Mucous Membranes Moist, Normal Exam - Neck Exam Neck exam: Full Rom, Normal Inspection - Respiratory Exam Respiratory Exam: Clear to PA & Lateral, NORMAL BREATHING PATTERN, UNREMARKABLE. absent: Accessory Muscle Use, Rales, Rhonchi, Wheezes, Respiratory Distress, Stridor - Cardiovascular Exam Cardiovascular Exam: REGULAR RHYTHM, +S1, +S2 - GI/Abdominal Exam GI & Abdominal Exam: Normal Bowel Sounds, Soft, Unremarkable. absent: Distended, Firm, Pulsatile Mass, Rebound, Rigid, Tenderness - Extremities Exam Extremities exam: normal capillary refill, normal inspection, pedal pulses present - Back Exam Back exam: NORMAL INSPECTION - Neurological Exam Neurological exam: Alert, Oriented x3 Weakness noted in the DIPs L sided extensor digitorums Numbness on all 5 distal phalanges- sensitive to deep pinprick no facial droop noted no tounge / uvual deviation, memory intact, no facial numbness - Skin Skin Exam: Dry, Intact, Normal Color, Warm Assessment & Plan - Assessment and Plan (Free Text) Assessment: TIA vs CVA vs Right sided Radial compression neuropathy -Weakness noted in Extensor Digitorum of L hand -Likely radial nerve compression from tight BP Cuff- clinically improving proximal to distal -f/u MRI to r/o CVA -CT w/o contrast- chronic changes no acute findings -ASA 325 stat Hx CAD s/p CABG (07/2017) Chronic systolic HF, stable -Lisinopril 2.5 BID -Norvasc 5 daily -ASA 325mg STAT then 81 mg PO daily -Eliquis 2.5 mg PO BID -Crestor 10 mg PO HS -Coreg 3.125mg PO daily ESRD on HD MWF - Pt goes to [facility] in [place] -Last dialysis session was on Tuesday 08/15 -Renvela 800mg PO TIDCC, home med DM -HbA1c: 9.4 -ISS -Lantus 30 units SC -accuchecks ACHS -hypoglycemic protocol HTN -Lisinopril 2.5mg PO BID -Coreg 3.125 PO daily -Norvasc 5mg qd Hypothyroidism -Levothyroxine 50mcg PO daily PPx, Diet, Disposition -DVT ppx: SCDs, home eliquis asa81 -GI ppx: not indicated -Diet: HHD, renal diet 83 M with hx of CAD s.p CABG, CRF on HD admitted for CVA ECHO suggestive of ASD or PFO Bubble study/JENARO will follow Objective - Vital Signs/Intake and Output Vital Signs (last 24 hours): Temp Pulse Resp BP Pulse Ox 98.4 F 87 19 136/66 87 L 08/18/18 05:27 08/18/18 05:27 08/18/18 05:27 08/18/18 05:27 08/18/18 05:28 - Medications Medications: Current Medications Amlodipine Besylate (Norvasc) 5 mg PO DAILY [facility] Last Admin: 08/18/18 09:03 Dose: 5 mg Apixaban (Eliquis) 2.5 mg PO BID [facility] Last Admin: 08/18/18 09:02 Dose: 2.5 mg Aspirin (Ecotrin) 81 mg PO DAILY [facility] Last Admin: 08/18/18 09:03 Dose: 81 mg Carvedilol (Coreg) 3.125 mg PO BID [facility] Last Admin: 08/18/18 09:03 Dose: 3.125 mg Insulin Aspart (Novolog) 0 unit SC [facility]; Protocol Levothyroxine Sodium (Synthroid) 50 mcg PO DAILY@0630 [facility] Last Admin: 08/18/18 06:01 Dose: 50 mcg Lisinopril (Zestril) 2.5 mg PO DAILY [facility] Last Admin: 08/18/18 09:03 Dose: 2.5 mg Sevelamer Carbonate (Renvela) 800 mg PO TID [facility] Last Admin: 08/18/18 09:03 Dose: 800 mg - Labs Labs: 08/18/18 07:11 08/16/18 11:18 PT 15.3 SECONDS (9.7-12.2) H 08/16/18 11:18 INR 1.4 08/16/18 11:18 APTT 42 SECONDS (21-34) H 08/16/18 11:18
--- NOTE | 2018-08-18 09:55 | CP.PCM.PN ---
Subjective - Date & Time of Evaluation Date of Evaluation: 08/18/18 Time of Evaluation: 09:52 - Subjective Subjective: stable dialysis 08/17 feels same still with right UE paresis HTN controlled on ASA, eliquis for anticoagulation Objective - Vital Signs/Intake and Output Vital Signs (last 24 hours): Temp Pulse Resp BP Pulse Ox 98.3 F 58 L 20 158/72 H 97 08/18/18 09:19 08/18/18 09:19 08/18/18 09:19 08/18/18 09:19 08/18/18 09:19 - Medications Medications: Current Medications Amlodipine Besylate (Norvasc) 5 mg PO DAILY [facility], [facility] Last Admin: 08/18/18 09:03 Dose: 5 mg Apixaban (Eliquis) 2.5 mg PO BID [facility] Last Admin: 08/18/18 09:02 Dose: 2.5 mg Aspirin (Ecotrin) 81 mg PO DAILY [facility] Last Admin: 08/18/18 09:03 Dose: 81 mg Carvedilol (Coreg) 3.125 mg PO BID [facility] Last Admin: 08/18/18 09:03 Dose: 3.125 mg Insulin Aspart (Novolog) 0 unit SC [facility]; Protocol Levothyroxine Sodium (Synthroid) 50 mcg PO DAILY@0630 [facility] Last Admin: 08/18/18 06:01 Dose: 50 mcg Lisinopril (Zestril) 2.5 mg PO DAILY [facility] Last Admin: 08/18/18 09:03 Dose: 2.5 mg Sevelamer Carbonate (Renvela) 800 mg PO TID [facility] Last Admin: 08/18/18 09:03 Dose: 800 mg - Labs Labs: 08/18/18 07:11 08/16/18 11:18 PT 15.3 SECONDS (9.7-12.2) H 08/16/18 11:18 INR 1.4 08/16/18 11:18 APTT 42 SECONDS (21-34) H 08/16/18 11:18 - Constitutional Appears: No Acute Distress, Chronically Ill - Head Exam Head Exam: ATRAUMATIC, NORMAL INSPECTION - Eye Exam Eye Exam: EOMI, Normal appearance - Neck Exam Neck Exam: Normal Inspection. absent: Tenderness - Cardiovascular Exam Cardiovascular Exam: REGULAR RHYTHM, +S1 - GI/Abdominal Exam GI & Abdominal Exam: Soft. absent: Tenderness - Extremities Exam Extremities Exam: Normal Inspection. absent: Tenderness - Neurological Exam Neurological Exam: Awake, CN II-XII Intact - Skin Skin Exam: Dry, Warm Assessment and Plan (1) CVA (cerebral vascular accident) Status: Acute (2) ESRD (end stage renal disease) Status: Acute (3) CAD (coronary artery disease) Status: Acute (4) HTN (hypertension), benign Status: Acute - Assessment and Plan (Free Text) Plan: same dialysis schedule BP control- monitor same anticoagulation Likely for JENARO; evaluate septal defects
[2018-08-18 10:22] LABS: ALB/GLOB RATIO 1.5 (1.0-2.1); ALBUMIN 3.7 g/dL (3.5-5.0); CALCIUM 8.6 mg/dl (8.6-10.4)
--- NOTE | 2018-08-18 11:28 | MRI ---
Date of service: 08/17/2018 PROCEDURE: Magnetic Resonance Angiography Brain HISTORY: stroke seen on MRI COMPARISON: None available. TECHNIQUE: 3D time of flight MR angiography of the intracranial arteries was performed. Rotating maximum intensity projection images were generated. FINDINGS: INTERNAL CAROTID ARTERIES: Normal flow related signal. The skull base, petrous, cavernous and supraclinoid segments are bilaterally widely patient. There is multifocal narrowing in the petrous segments, worse on the left, likely related to intracranial atherosclerosis. ANTERIOR CEREBRAL ARTERIES: Normal flow related signal. A1 and A2 segments are widely patent. Smaller distal branches unremarkable, as visualized. MIDDLE CEREBRAL ARTERIES: Normal flow related signal. M1 and M2 segments are widely patent. Perisylvian branches grossly symmetric. POSTERIOR CIRCULATION: Basilar Artery: Normal flow related signal. Normal in caliber and widely patent. Distal Vertebral Arteries: Normal flow related signal. Widely patent. Posterior Cerebral Arteries: There is multifocal narrowing in the posterior cerebral arteries are, likely related to intracranial atherosclerosis. Widely patent. Posterior Inferior Cerebellar Arteries: Normal flow related signal. Widely patent. ANEURYSM/ VASCULAR MALFORMATIONS: None. OTHER FINDINGS: None. IMPRESSION: Multifocal narrowing in the petrous segments of the internal carotid arteries and bilateral posterior cerebral arteries, likely related to intracranial atherosclerosis.
--- NOTE | 2018-08-18 11:39 | MRI ---
Date of service: 08/17/2018 PROCEDURE: MR Angiography of the neck without contrast HISTORY: stroke seen on MRI COMPARISON: None available. TECHNIQUE: 3D [id number] angiography of the neck was performed. Rotating maximum intensity projection images of the cervical carotid and vertebral arteries were generated. The origins of the common carotid arteries were not visualized, which is a limitation inherent to the non-contrast time of flight technique. FINDINGS: RIGHT CAROTID ARTERIES: Common Carotid Artery: Normal. Carotid Bifurcation: Normal. Internal Carotid Artery:There is segmental narrowing at the ICA origin and 1.3 cm segment of fusiform aneurysmal dilatation distal to the narrow segment. The remaining distal ICA is patent and normal in caliber. External Carotid Artery (proximal branches): Normal. LEFT CAROTID ARTERIES: Common Carotid Artery: Normal. Carotid Bifurcation: Normal. Internal Carotid Artery:Normal. External Carotid Artery (proximal branches): Normal. VERTEBRAL ARTERIES: Right Vertebral Artery: Normal. Left Vertebral Artery: Normal. OTHER FINDINGS: None. IMPRESSION: 1. No evidence of hemodynamically significant stenosis in the extracranial internal carotid arteries. 2. Segmental narrowing at the right ICA origin and a 1.3 cm segment of fusiform aneurysmal dilatation distal to the narrowing. 3. Patent bilateral vertebral arteries.
--- NOTE | 2018-08-18 12:34 | VASCLAB ---
Date of service: 08/17/2018 PROCEDURE: Lower Extremity Venous Duplex Exam. HISTORY: s/p CVA, has a cardiac septal defect, PRIORS: None. TECHNIQUE: Bilateral common femoral, femoral, popliteal and posterior tibial, peroneal and great saphenous veins were evaluated. Flow was assessed with color Doppler, compressibility, assessment of phasic flow and augmentation response. Report prepared by Sean Cohen, BS, RVT FINDINGS: RIGHT: 1. Common Femoral Vein: 1.1. Compressibility - Fully compressible: Thrombus - None : Flow - Phasic: Augmentation -Normal: Reflux - None. 2. Femoral Vein: 2.1. Compressibility - Fully compressible: Thrombus - None : Flow - Phasic: Augmentation -Normal: Reflux - None. 3. Popliteal Vein: 3.1. Compressibility - Fully compressible: Thrombus - None : Flow - Phasic: Augmentation -Normal: Reflux - None. 4. Posterior Tibial Vein: 4.1. Compressibility - Fully compressible: Thrombus - None: Flow - Phasic: Augmentation -Normal: Reflux - None. 5. Peroneal Vein: 5.1. Compressibility - Fully compressible: Thrombus - None: Flow - Phasic: Augmentation -Normal: Reflux - None. 6. Great Saphenous Vein: 6.1. Compressibility - Fully compressible: Thrombus - None: Flow - Phasic: Augmentation - Normal: Reflux - None. LEFT: 1. Common Femoral Vein: 1.1. Compressibility - Fully compressible: Thrombus - None: Flow - Phasic: Augmentation -Normal: Reflux - None. 2. Femoral Vein: 2.1. Compressibility - Fully compressible: Thrombus - None: Flow - Phasic: Augmentation -Normal: Reflux - None. 3. Popliteal Vein: 3.1. Compressibility - Fully compressible: Thrombus - None : Flow - Phasic: Augmentation -Normal: Reflux - None. 4. Posterior Tibial Vein: 4.1. Compressibility - Fully compressible: Thrombus - None: Flow - Phasic: Augmentation -Normal: Reflux - None. 5. Peroneal Vein: 5.1. Compressibility - Fully compressible: Thrombus - None: Flow - Phasic: Augmentation -Normal: Reflux - None. 6. Great Saphenous Vein: 6.1. Compressibility - : Thrombus - : Flow - : Augmentation - : Reflux - . OTHER FINDINGS: Right: None significant. Left: None significant. IMPRESSION: Right: No evidence of deep or superficial vein thrombosis of the right lower extremity. Normal valve function noted of the right side. Left: No evidence of deep or superficial vein thrombosis of the left lower extremity. Normal valve function noted of the left side. The left greater saphenous vein has been previously removed.
--- NOTE | 2018-08-18 13:34 | PCM.STROKE ---
Interval History Stroke Date: 08/15/18 No other interval changes in current, PMHx, FHx, SocHx, ROS: other than on note by: (initial neuro note) - Treatment Antiplatelet: Acetylsalicylic acid (ASA) Anticoagulation: Eliquis Statin: Rosuvastatin - Education Written Stroke Education provided regarding: personal risk factors, stroke warning sign/symptoms, how to activate emergency medical services, need to follow up after discharge Hx Atrial Fibrillation: Yes Hx Atrial Flutter: No - Therapy Notes I have reviewed care of the patient with: Dr. Lawrence NIHSS Stroke Scale - Date/Time Evaluation Performed Date Performed: 08/18/18 Time Performed: 14:08 When Was NIHSS Performed: Re-evaluation - How Severe is the Stroke Level of Consciousness: 0=Alert LOC to Questions: 0=Both comments correct LOC to commands: 0=Obeys both correctly Best Gaze: 0=Normal Visual: 0=No visual loss Facial: 0=Normal Motor Arm - Left: 0=No drift Motor Arm - Right: 1=Drift noted before 10 sec Motor Leg - Left: 0=No drift Motor Leg - Right: 0=No drift Limb Ataxia: 0=Absent Sensory: 0=Normal Best Language: 0=No aphasia Dysarthia: 0=Normal articulation Extinction & Inattention (Neglect): 0=Normal, no object Score: 1 Exam - Vital Sign Vital Signs: Temp Pulse Resp BP Pulse Ox 98.3 F 58 L 20 158/72 H 97 08/18/18 09:19 08/18/18 09:19 08/18/18 09:19 08/18/18 09:19 08/18/18 09:19 Constitutional: No distress, Normal appearing Ophthalmoscopic: absent: papilledema, hemorrhage Right Pupil: Reactive Right Pupil Size (in mm): 2 Left Pupil: Reactive (3) Cardiovascular: Other (afib on tele mx) Mental Status: Normal: Orientation, Memory, Attention, Language, Fund of Knowledge Cranial Nerve: Normal: Visual Paiz, Extraocular movement intact, Facial Sensation, Facial Strength, Hearing, Palate/Tongue Movement, Shoulder Strength Motor: Tone Neuro motor strength exam: Left Upper Extremity: 5, 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), Left Lower Extremity: 5, Right Lower Extremity: 5 Sensation: Intact to pin, Vibration, Propriception throughout DTR: Patellar Left: 2+, Patellar Right: 2+ Flexor Plantar Reflex: Normal Coordination: absent: Finger/nose (dysmetria to right; normal left) Vascular Risk: Hypertension, Atrial Fibrillation - Data reviewed Laboratory results: 08/18/18 07:11 08/18/18 07:11 Assessment and Plan (1) CVA (cerebral vascular accident) Assessment & Plan: Imaging reviewed: -CTA Head and Neck (08/17/18): Multifocal narrowing in the petrous segments of the internal carotid arteries and bilateral posterior cerebral arteries, likely related to intracranial atherosclerosis. 1. No evidence of hemodynamically significant stenosis in the extracranial internal carotid arteries. 2. Segmental narrowing at the right ICA origin and a 1.3 cm segment of fusiform aneurysmal dilatation distal to the narrowing. 3. Patent bilateral vertebral arteries. -MRI Brain (08/16/18): 1. Late acute/early subacute infarction in the left posterior myers radiata and posterior superior basal ganglia. 2. Moderate chronic microangiopathic changes and mild age-related global parenchymal volume loss. Chronic lacunar infarction in the left posterior inferior basal ganglia. 3. Stable 1.5 x 1.4 cm round extra-axial mass in the right cerebellopontine angle cistern statistically most compatible with a meningioma. -CT Head (08/16/18): 1. No acute intracranial abnormality. If there is a persistent focal neurologic deficit and an ongoing clinical concern for acute infarction, an MRI of the brain without intravenous contrast would be a more sensitive modality for evaluation of hyperacute/acute ischemic infarction. 2. Mild chronic microangiopathic changes and mild age-related global parenchymal volume loss. 3. Stable 1.5 x 1.4 cm round extra-axial mass in the right cerebellopontine angle cistern statistically most compatible with a meningioma. Correlation with MRI of the brain without and with intravenous contrast with IAC protocol is recommended for definitive characterization. 5. Chronic left frontal and ethmoid sinusitis. -Consult Neuro IR for right ICA aneurysmal dilation; Dr. Jackson made aware of the consult, his team will see the pt--will follow up with recommendations. -Continue ASA and statin. -Continue Eliquis for afib. -HgbA1C and lipids ordered. -PT/OT eval. -ECHO JENARO ordered by cardio team---will f/u with results. -Notify neuro team of any changes to pt's condition. Nathalie Murphy, REJI, ANALYSIS ANALYST Discussed with Dr. Lawrence Status: Acute
--- NOTE | 2018-08-18 15:58 | CP.PCM.PN ---
<David Moralez - Last Filed: 08/18/18 16:04> Subjective - Date & Time of Evaluation Date of Evaluation: 08/18/18 Time of Evaluation: 15:56 - Subjective Subjective: HOSPITALIST SERVICE Pt s/e at bedside, no acute complaints overnight, reports persistent motor deficits without any noticeable improvement yet, pt also report improved sensation in the R hand. denies CP SOB FC NV, or new onset of headaches, weakness, syncope Objective - Vital Signs/Intake and Output Vital Signs (last 24 hours): Temp Pulse Resp BP Pulse Ox 98.3 F 77 20 158/72 H 97 08/18/18 09:19 08/18/18 15:14 08/18/18 09:19 08/18/18 09:19 08/18/18 15:14 - Medications Medications: Current Medications Amlodipine Besylate (Norvasc) 5 mg PO DAILY [facility] Last Admin: 08/18/18 09:03 Dose: 5 mg Apixaban (Eliquis) 2.5 mg PO BID [facility] Last Admin: 08/18/18 09:02 Dose: 2.5 mg Aspirin (Ecotrin) 81 mg PO DAILY [facility] Last Admin: 08/18/18 09:03 Dose: 81 mg Carvedilol (Coreg) 3.125 mg PO BID [facility] Last Admin: 08/18/18 09:03 Dose: 3.125 mg Insulin Aspart (Novolog) [address] [facility]; Protocol Last Admin: 08/18/18 13:40 Dose: 3 units Levothyroxine Sodium (Synthroid) 50 mcg PO DAILY@0630 [facility] Last Admin: 08/18/18 06:01 Dose: 50 mcg Lisinopril (Zestril) 2.5 mg PO DAILY [facility] Last Admin: 08/18/18 09:03 Dose: 2.5 mg Rosuvastatin Calcium (Crestor) 10 mg PO [facility] Sevelamer Carbonate (Renvela) 800 mg PO TID [facility] Last Admin: 08/18/18 13:42 Dose: 800 mg - Labs Labs: 08/18/18 07:11 08/18/18 07:11 PT 15.3 SECONDS (9.7-12.2) H 08/16/18 11:18 INR 1.4 08/16/18 11:18 APTT 42 SECONDS (21-34) H 08/16/18 11:18 - Additional Findings Additional findings: - Head Exam Head Exam: ATRAUMATIC, NORMAL INSPECTION, NORMOCEPHALIC - Eye Exam Eye Exam: EOMI, Normal appearance Pupil Exam: NORMAL ACCOMODATION - ENT Exam ENT Exam: Mucous Membranes Moist, Normal Exam - Neck Exam Neck exam: Full Rom, Normal Inspection - Respiratory Exam Respiratory Exam: Clear to PA & Lateral, NORMAL BREATHING PATTERN, UNREMARKABLE. absent: Accessory Muscle Use, Rales, Rhonchi, Wheezes, Respiratory Distress, Stridor - Cardiovascular Exam Cardiovascular Exam: REGULAR RHYTHM, +S1, +S2 - GI/Abdominal Exam GI & Abdominal Exam: Normal Bowel Sounds, Soft, Unremarkable. absent: Distended, Firm, Pulsatile Mass, Rebound, Rigid, Tenderness - Extremities Exam Extremities exam: normal capillary refill, normal inspection, pedal pulses present - Back Exam Back exam: NORMAL INSPECTION - Neurological Exam Neurological exam: Alert, Oriented x3 Weakness noted in the DIPs L sided extensor digitorums Numbness on all 5 distal phalanges- sensitive now to light touch- improving no facial droop noted no tounge / uvual deviation, memory intact, no facial numbness Assessment and Plan - Assessment and Plan (Free Text) Assessment: 83M found to have a minor CVA Plan: L Basal ganglia CVA -Weakness noted in Extensor Digitorum of L hand -sensation decreased -MRI : L basal ganglia ischemic cva read by neurology -CT w/o contrast- chronic changes no acute findings -ASA 325 daily -crestor 10 HS -MRA : R ICA aneurysm - Vasc Neuro consulted through Dr Howard Raya to evaluate for possible intervention/ monitoring -neg dopplers of LE -Neuro Dr Lawrence consulted recs appreciated -Cardio Dr Garcia consulted JENARO tmrw possible ASD interventional tx tbd Hx CAD s/p CABG (07/2017) Chronic systolic HF, stable -Lisinopril 2.5 BID -Norvasc 5 daily -ASA 325mg STAT then 81 mg PO daily -Eliquis 2.5 mg PO BID -Crestor 10 mg PO HS -Coreg 3.125mg PO daily ESRD on HD MWF - Pt goes to [facility] in [place] -Last dialysis session was on Tuesday 08/15 -Renvela 800mg PO [facility], home med DM -HbA1c: 9.4 -ISS -Lantus 30 units SC -accuchecks ACHS -hypoglycemic protocol HTN -Lisinopril 2.5mg PO BID -Coreg 3.125 PO daily -Norvasc 5mg qd Hypothyroidism -Levothyroxine 50mcg PO daily PPx, Diet, Disposition -DVT ppx: SCDs, home eliquis and ASA 325 -GI ppx: not indicated -Diet: HHD, renal diet, NPO past midnight DISPO NPO past midnight, for JENARO tmrw w/ Jose <Mahad Casey H - Last Filed: 08/18/18 18:05> Objective - Vital Signs/Intake and Output Vital Signs (last 24 hours): Temp Pulse Resp BP Pulse Ox 97.3 F L 74 20 131/64 97 08/18/18 16:00 08/18/18 16:00 08/18/18 16:00 08/18/18 16:00 08/18/18 16:00 - Medications Medications: Current Medications Amlodipine Besylate (Norvasc) 5 mg PO DAILY [facility] Last Admin: 08/18/18 09:03 Dose: 5 mg Apixaban (Eliquis) 2.5 mg PO BID [facility] Last Admin: 08/18/18 09:02 Dose: 2.5 mg Aspirin (Ecotrin) 81 mg PO DAILY [facility] Last Admin: 08/18/18 09:03 Dose: 81 mg Carvedilol (Coreg) 3.125 mg PO BID [facility] Last Admin: 08/18/18 09:03 Dose: 3.125 mg Insulin Aspart (Novolog) [address] [facility]; Protocol Last Admin: 08/18/18 13:40 Dose: 3 units Levothyroxine Sodium (Synthroid) 50 mcg PO DAILY@0630 [facility] Last Admin: 08/18/18 06:01 Dose: 50 mcg Lisinopril (Zestril) 2.5 mg PO DAILY [facility] Last Admin: 08/18/18 09:03 Dose: 2.5 mg Rosuvastatin Calcium (Crestor) 10 mg PO [facility] Sevelamer Carbonate (Renvela) 800 mg PO TID [facility] Last Admin: 08/18/18 13:42 Dose: 800 mg - Labs Labs: 08/18/18 07:11 08/18/18 07:11 PT 15.3 SECONDS (9.7-12.2) H 08/16/18 11:18 INR 1.4 08/16/18 11:18 APTT 42 SECONDS (21-34) H 08/16/18 11:18 Attending/Attestation - Attestation I have personally seen and examined this patient.: Yes I have fully participated in the care of the patient.: Yes I have reviewed all pertinent clinical information, including history, physical exam and plan: Yes Notes (Text): 08/18/18 18:02 Medical attending: Patient was seen and examined by me. Agree with the above note by the resident The patient was not in any acute distress when I came and saw him. Family member present as well The patient was cheerful affect However on exam he still had some decrease sensation over the palm and weakness in R hand grasp. As before he is able to readily raise arm up, no slurring speech, no facial drooping Just his right hand and this is refelective of the CVA seen on the MRI that he had Now he did have an echo not to long ago suggesting he has an ASD or VSD so he is pending a echo bubble study and his contact center associate is planning on a JENARO after this thank you Mahad Casey
[2018-08-18 17:04] LABS: HDL CHOLESTEROL 40 mg/dL (30-70)
[2018-08-18 17:15] LABS: LDL CHOLESTEROL 37 mg/dL (0-129)
[2018-08-19] MEDS: Levothyroxine 50 MCG TAB PO SCH (06:18)
[2018-08-19 07:19] LABS: BASO # 0.1 K/uL (0.0-0.2); BASO % 1.1 % (0.0-2.0); EOS # 0.3 K/uL (0.0-0.7); EOS % 3.4 % (0.0-4.0); HEMOGLOBIN 12.6 g/dL (12.0-18.0); LYMPH # 3.8 K/uL (1.0-4.3); LYMPH % 37.8 % (20.0-40.0); MEAN CELL VOLUME 101.1 fL (80.0-94.0); MEAN CORPUSCULAR HEMOGLOBIN 34.7 pg (27.0-31.0); MEAN CORPUSCULAR HGB CONC 34.4 g/dL (33.0-37.0); MEAN PLATELET VOLUME 8.2 fL (7.2-11.7); MONO # 0.8 K/uL (0.0-0.8); MONO % 7.9 % (0.0-10.0); NEUT % 49.8 % (50.0-75.0); NRBC % 0.2 % (0.0-2.0); RBC 3.63 Mil/uL (4.40-5.90); RED CELL DISTRIBUTION WIDTH 14.2 % (11.5-14.5)
[2018-08-19 07:37] LABS: ALB/GLOB RATIO 1.4 (1.0-2.1); ALBUMIN 3.5 g/dL (3.5-5.0); CALCIUM 8.5 mg/dl (8.6-10.4)
[2018-08-19] MEDS: (Novolog) Insulin Aspart, Recombinant 100 u/ml 10 ml vial SC SCH ×4 (08:36→21:21)
[2018-08-19] MEDS ORDERED: Lidocaine 4% (Laryng-O-Jet) Kit MM ONE (11:27)
[2018-08-19] MEDS ORDERED: Etomidate 20 mg/10ml Inj IV ONE (11:35)
[2018-08-19] MEDS ORDERED: Propofol 10 mg/ml Inj (20 ML) ONE (11:35)
--- NOTE | 2018-08-19 14:03 | CP.PCM.PN ---
<David Moralez - Last Filed: 08/19/18 18:24> Subjective - Date & Time of Evaluation Date of Evaluation: 08/19/18 Time of Evaluation: 13:59 - Subjective Subjective: HOSPITALIST SERVICE Pt s/e at bedside, reports resolution of sensation deficits however still has motor deficits that has remained in the R hand (wrist ext, phalangeal flex ext abd adduc). pt denies any acute events overnight is in high spirits, understands he's going for JENARO w/ Dr Garcia today- agrees with plan. denies CP SOB FC [place] Objective - Vital Signs/Intake and Output Vital Signs (last 24 hours): Temp Pulse Resp BP Pulse Ox 97.7 F 70 20 158/66 H 96 08/19/18 07:00 08/19/18 07:00 08/19/18 07:00 08/19/18 07:00 08/19/18 07:00 - Medications Medications: Current Medications Amlodipine Besylate (Norvasc) 5 mg PO DAILY [facility] Last Admin: 08/18/18 09:03 Dose: 5 mg Apixaban (Eliquis) 2.5 mg PO BID [facility] Last Admin: 08/18/18 19:00 Dose: 2.5 mg Aspirin (Ecotrin) 81 mg PO DAILY [facility] Last Admin: 08/18/18 09:03 Dose: 81 mg Carvedilol (Coreg) 3.125 mg PO BID [facility] Last Admin: 08/18/18 19:00 Dose: 3.125 mg Insulin Aspart (Novolog) 0 unit SC [facility]; Protocol Last Admin: 08/19/18 08:36 Dose: 2 units Levothyroxine Sodium (Synthroid) 50 mcg PO DAILY@0630 [facility] Last Admin: 08/19/18 06:18 Dose: 50 mcg Lisinopril (Zestril) 2.5 mg PO DAILY [facility] Last Admin: 08/18/18 09:03 Dose: 2.5 mg Rosuvastatin Calcium (Crestor) 10 mg PO HS [facility] Last Admin: 08/18/18 22:19 Dose: 10 mg Sevelamer Carbonate (Renvela) 800 mg PO TID [facility] Last Admin: 08/18/18 18:59 Dose: 800 mg - Labs Labs: 08/19/18 06:33 08/19/18 06:33 PT 15.3 SECONDS (9.7-12.2) H 08/16/18 11:18 INR 1.4 08/16/18 11:18 APTT 42 SECONDS (21-34) H 08/16/18 11:18 - Additional Findings Additional findings: - Head Exam Head Exam: ATRAUMATIC, NORMAL INSPECTION, NORMOCEPHALIC - Eye Exam Eye Exam: EOMI, Normal appearance Pupil Exam: NORMAL ACCOMODATION - ENT Exam ENT Exam: Mucous Membranes Moist, Normal Exam - Neck Exam Neck exam: Full Rom, Normal Inspection - Respiratory Exam Respiratory Exam: Clear to PA & Lateral, NORMAL BREATHING PATTERN, UNREMARKABLE. absent: Accessory Muscle Use, Rales, Rhonchi, Wheezes, Respiratory Distress, Stridor - Cardiovascular Exam Cardiovascular Exam: REGULAR RHYTHM, +S1, +S2 - GI/Abdominal Exam GI & Abdominal Exam: Normal Bowel Sounds, Soft, Unremarkable. absent: Distended, Firm, Pulsatile Mass, Rebound, Rigid, Tenderness - Extremities Exam Extremities exam: normal capillary refill, normal inspection, pedal pulses present - Back Exam Back exam: NORMAL INSPECTION - Neurological Exam Neurological exam: Alert, Oriented x3 Weakness noted in the DIPs L sided extensor digitorums No sensory deficits noted no facial droop noted no tounge / uvual deviation, memory intact, no facial numbness Assessment and Plan - Assessment and Plan (Free Text) Assessment: Assessment and Plan - Assessment and Plan (Free Text) Assessment: 83M found to have a minor CVA Plan: L Basal ganglia CVA -Weakness noted in Extensor Digitorum of L hand -sensation decreased -MRI : L basal ganglia ischemic cva read by neurology -CT w/o contrast- chronic changes no acute findings -ASA 325 daily -crestor 10 HS -MRA : R ICA aneurysm - Vasc Neuro consulted through Dr Howard Raya to evaluate for possible intervention/ monitoring -neg dopplers of LE -Neuro Dr Lawrence consulted recs appreciated -Cardio Dr Garcia consulted JENARO tmrw possible ASD interventional tx tbd Hx CAD s/p CABG (07/2017) Chronic systolic HF, stable -Lisinopril 2.5 BID -Norvasc 5 daily -ASA 325mg STAT then 81 mg PO daily -Eliquis 2.5 mg PO BID -Crestor 10 mg PO HS -Coreg 3.125mg PO daily ESRD on HD MWF - Pt goes to [facility] in [place] -Last dialysis session was on Tuesday 08/15 -Renvela 800mg PO [facility], home med DM -HbA1c: 9.4 -ISS -[facility]N -Lisinopril 2.5mg PO BID -Coreg 3.125 PO daily -Norvasc 5mg qd Hypothyroidism -Levothyroxine 50mcg PO daily PPx, Diet, Disposition -DVT ppx: SCDs, home eliquis and ASA 325 -GI ppx: not indicated -Diet: HHD, renal diet, NPO past midnight DISPO follow up JENARO results- may need IntCardio procedure for ASD repair <Mahad Casey H - Last Filed: 08/20/18 08:24> Objective - Vital Signs/Intake and Output Vital Signs (last 24 hours): Temp Pulse Resp BP Pulse Ox 98.3 F 93 H 20 122/58 L 98 08/19/18 23:25 08/20/18 00:10 08/19/18 23:25 08/19/18 23:25 08/19/18 23:25 - Medications Medications: Current Medications Amlodipine Besylate (Norvasc) 5 mg PO DAILY [facility] Last Admin: 08/19/18 14:03 Dose: 5 mg Apixaban (Eliquis) 2.5 mg PO BID [facility] Last Admin: 08/19/18 18:00 Dose: Not Given Aspirin (Ecotrin) 81 mg PO DAILY [facility] Last Admin: 08/19/18 14:03 Dose: 81 mg Carvedilol (Coreg) 3.125 mg PO BID [facility] Last Admin: 08/19/18 18:00 Dose: Not Given Insulin Aspart (Novolog) 0 unit SC [facility]; Protocol Last Admin: 08/19/18 21:21 Dose: Not Given Levothyroxine Sodium (Synthroid) 50 mcg PO DAILY@0630 [facility] Last Admin: 08/20/18 06:16 Dose: 50 mcg Lisinopril (Zestril) 2.5 mg PO DAILY [facility] Last Admin: 08/19/18 14:03 Dose: 2.5 mg Rosuvastatin Calcium (Crestor) 10 mg PO [facility] Last Admin: 08/19/18 22:53 Dose: 10 mg Sevelamer Carbonate (Renvela) 800 mg PO TID [facility] Last Admin: 08/19/18 18:00 Dose: Not Given - Labs Labs: 08/20/18 07:03 08/20/18 07:03 PT 15.3 SECONDS (9.7-12.2) H 08/16/18 11:18 INR 1.4 08/16/18 11:18 APTT 42 SECONDS (21-34) H 08/16/18 11:18 Attending/Attestation - Attestation I have personally seen and examined this patient.: Yes I have fully participated in the care of the patient.: Yes I have reviewed all pertinent clinical information, including history, physical exam and plan: Yes Notes (Text): Medical attending: Patient was seen and examined by me, agree with the above note by the resident Patient was pending JENARO in the morning to assess for ASD and VSD The patient was not in any acute distress and had pleasant affect. The R hand was still as before - less sensation and weak with grasp Mahad Casey
--- NOTE | 2018-08-19 14:29 | CP.PCM.PN ---
Subjective - Date & Time of Evaluation Date of Evaluation: 08/19/18 Time of Evaluation: 14:26 - Subjective Subjective: feels about same still with mild right hemiparesis for dialysis now HTN controlled no other complaint Objective - Vital Signs/Intake and Output Vital Signs (last 24 hours): Temp Pulse Resp BP Pulse Ox 97.7 F 70 20 158/66 H 96 08/19/18 07:00 08/19/18 07:00 08/19/18 07:00 08/19/18 07:00 08/19/18 07:00 - Medications Medications: Current Medications Amlodipine Besylate (Norvasc) 5 mg PO DAILY [facility] Last Admin: 08/19/18 14:03 Dose: 5 mg Apixaban (Eliquis) 2.5 mg PO BID [facility] Last Admin: 08/19/18 14:04 Dose: 2.5 mg Aspirin (Ecotrin) 81 mg PO DAILY [facility] Last Admin: 08/19/18 14:03 Dose: 81 mg Carvedilol (Coreg) 3.125 mg PO BID [facility] Last Admin: 08/19/18 14:05 Dose: 3.125 mg Insulin Aspart (Novolog) 0 unit SC [facility]; Protocol Last Admin: 08/19/18 14:06 Dose: Not Given Levothyroxine Sodium (Synthroid) 50 mcg PO DAILY@0630 [facility] Last Admin: 08/19/18 06:18 Dose: 50 mcg Lisinopril (Zestril) 2.5 mg PO DAILY [facility] Last Admin: 08/19/18 14:03 Dose: 2.5 mg Rosuvastatin Calcium (Crestor) 10 mg PO HS [facility] Last Admin: 08/18/18 22:19 Dose: 10 mg Sevelamer Carbonate (Renvela) 800 mg PO TID [facility] Last Admin: 08/19/18 14:05 Dose: 800 mg - Labs Labs: 08/19/18 06:33 08/19/18 06:33 PT 15.3 SECONDS (9.7-12.2) H 08/16/18 11:18 INR 1.4 08/16/18 11:18 APTT 42 SECONDS (21-34) H 08/16/18 11:18 - Constitutional Appears: No Acute Distress, Chronically Ill - Head Exam Head Exam: ATRAUMATIC, NORMAL INSPECTION - Eye Exam Eye Exam: EOMI, Normal appearance - Neck Exam Neck Exam: Normal Inspection. absent: Tenderness - Respiratory Exam Respiratory Exam: Clear to Ausculation Bilateral, NORMAL BREATHING PATTERN - Cardiovascular Exam Cardiovascular Exam: REGULAR RHYTHM, +S1 - GI/Abdominal Exam GI & Abdominal Exam: Soft. absent: Tenderness - Extremities Exam Extremities Exam: Normal Inspection. absent: Tenderness - Neurological Exam Neurological Exam: Awake, Motor Sensory Deficit - Skin Skin Exam: Dry, Warm Assessment and Plan (1) CVA (cerebral vascular accident) Status: Acute (2) ESRD (end stage renal disease) Status: Acute (3) CAD (coronary artery disease) Status: Acute (4) HTN (hypertension), benign Status: Acute - Assessment and Plan (Free Text) Plan: dialysis now, MWF HTN control neuro checks post CVA
--- NOTE | 2018-08-19 15:11 | PCM.STROKE ---
Interval History Stroke Date: 08/15/18 No other interval changes in current, PMHx, FHx, SocHx, ROS: other than on note by: (initial neuro H&P) - Treatment Antiplatelet: Acetylsalicylic acid (ASA) Anticoagulation: Eliquis Statin: Rosuvastatin - Education Written Stroke Education provided regarding: personal risk factors, stroke warning sign/symptoms, how to activate emergency medical services, need to follow up after discharge Hx Atrial Fibrillation: No Hx Atrial Flutter: No - Therapy Notes Physical therapy notes date reviewed: 08/19/18 I have reviewed care of the patient with: Dr. Lawrence NIHSS Stroke Scale - Date/Time Evaluation Performed Date Performed: 08/19/18 Time Performed: 15:08 When Was NIHSS Performed: Re-evaluation - How Severe is the Stroke Level of Consciousness: 0=Alert LOC to Questions: 0=Both comments correct LOC to commands: 0=Obeys both correctly Best Gaze: 0=Normal Visual: 0=No visual loss Facial: 0=Normal Motor Arm - Left: 0=No drift Motor Arm - Right: 0=No drift Motor Leg - Left: 0=No drift Motor Leg - Right: 0=No drift Limb Ataxia: 0=Absent Sensory: 0=Normal Best Language: 0=No aphasia Dysarthia: 0=Normal articulation Extinction & Inattention (Neglect): 0=Normal, no object Score: 0 Exam - Vital Sign Vital Signs: Temp Pulse Resp BP Pulse Ox 97.7 F 70 20 158/66 H 96 08/19/18 07:00 08/19/18 07:00 08/19/18 07:00 08/19/18 07:00 08/19/18 07:00 Constitutional: No distress, Normal appearing Ophthalmoscopic: absent: papilledema, hemorrhage Right Pupil: Reactive Left Pupil: Reactive Cardiovascular: Other (sinus w pvcs) Mental Status: Normal: Orientation, Memory, Attention, Language, Fund of Knowledge Cranial Nerve: Normal: Visual Paiz, Extraocular movement intact, Facial Sensation, Facial Strength, Hearing, Palate/Tongue Movement, Shoulder Strength Motor: Tone, Bulk Neuro motor strength exam: Left Upper Extremity: 5 (perl software engineer 5/5), Right Upper Extremity: 4 (perl software engineer 4/5), Left Lower Extremity: 5, Right Lower Extremity: 5 Sensation: Intact to pin, Vibration, Propriception throughout DTR: Patellar Right: 2+, Tricep Left: 2+ Flexor Plantar Reflex: Normal Coordination: Finger/nose Vascular Risk: Hypertension - Data reviewed Laboratory results: 08/19/18 06:33 08/19/18 06:33 Triglycerides 150 mg/dL (0-149) H D 08/18/18 16:05 Cholesterol 103 mg/dL (0-199) 08/18/18 16:05 LDL Cholesterol Direct 37 mg/dL (0-129) 08/18/18 16:05 HDL Cholesterol 40 mg/dL (30-70) 08/18/18 16:05 Hemoglobin A1c 7.6 % (4.2-6.5) H 08/18/18 16:04 Assessment and Plan (1) CVA (cerebral vascular accident) Assessment & Plan: Imaging reviewed: -CTA Head and Neck (08/17/18): Multifocal narrowing in the petrous segments of the internal carotid arteries and bilateral posterior cerebral arteries, likely related to intracranial atherosclerosis. 1. No evidence of hemodynamically significant stenosis in the extracranial internal carotid arteries. 2. Segmental narrowing at the right ICA origin and a 1.3 cm segment of fusiform aneurysmal dilatation distal to the narrowing. 3. Patent bilateral vertebral arteries. -MRI Brain (08/16/18): 1. Late acute/early subacute infarction in the left posterior myers radiata and posterior superior basal ganglia. 2. Moderate chronic microangiopathic changes and mild age-related global parenchymal volume loss. Chronic lacunar infarction in the left posterior inferior basal ganglia. 3. Stable 1.5 x 1.4 cm round extra-axial mass in the right cerebellopontine angle cistern statistically most compatible with a meningioma. -CT Head (08/16/18): 1. No acute intracranial abnormality. If there is a persistent focal neurologic deficit and an ongoing clinical concern for acute infarction, an MRI of the brain without intravenous contrast would be a more sensitive modality for evaluation of hyperacute/acute ischemic infarction. 2. Mild chronic microangiopathic changes and mild age-related global parenchymal volume loss. 3. Stable 1.5 x 1.4 cm round extra-axial mass in the right cerebellopontine angle cistern statistically most compatible with a meningioma. Correlation with MRI of the brain without and with intravenous contrast with IAC protocol is recommended for definitive characterization. 5. Chronic left frontal and ethmoid sinusitis. -Pending Neuro IR to evaluate the pt for right ICA aneurysmal dilation---will follow up with recommendations. -Continue ASA and statin; continue Eliquis (please note that the pt does not have afib; I was notified yesterday that he had a h/o of afib, however, review of previous EKGs and tele mx indicate sinus w pvcs; he does have a h/o cabg). -Continue PT/OT -ECHO JENARO done today by Dr. Garcia---will f/u with results. -Notify neuro team of any changes to pt's condition. Nathalie Murphy, REJI, BEAM DYER RECESSED VAT Discussed with Dr. Lawrence Status: Acute
[2018-08-20] MEDS: Levothyroxine 50 MCG TAB PO SCH (06:16)
[2018-08-20 07:14] LABS: BASO # 0.1 K/uL (0.0-0.2); BASO % 0.8 % (0.0-2.0); EOS # 0.3 K/uL (0.0-0.7); EOS % 2.7 % (0.0-4.0); HEMOGLOBIN 13.5 g/dL (12.0-18.0); LYMPH # 3.1 K/uL (1.0-4.3); LYMPH % 32.4 % (20.0-40.0); MEAN CELL VOLUME 100.9 fL (80.0-94.0); MEAN CORPUSCULAR HEMOGLOBIN 34.3 pg (27.0-31.0); MEAN PLATELET VOLUME 7.8 fL (7.2-11.7); MONO # 0.8 K/uL (0.0-0.8); MONO % 8.1 % (0.0-10.0); NEUT # 5.4 K/uL (1.8-7.0); RBC 3.94 Mil/uL (4.40-5.90); RED CELL DISTRIBUTION WIDTH 14.3 % (11.5-14.5); WHITE BLOOD COUNT 9.7 K/uL (4.8-10.8)
[2018-08-20 08:04] LABS: ALB/GLOB RATIO 1.4 (1.0-2.1); ALBUMIN 3.7 g/dL (3.5-5.0); CALCIUM 8.7 mg/dl (8.6-10.4)
[2018-08-20] MEDS: (Novolog) Insulin Aspart, Recombinant 100 u/ml 10 ml vial SC SCH ×4 (08:27→22:08)
--- NOTE | 2018-08-20 10:04 | CP.PCM.PN ---
Subjective - Date & Time of Evaluation Date of Evaluation: 08/20/18 Time of Evaluation: 10:00 - Subjective Subjective: NOtes reviewed No overnight events reported Comfortable in bed No distress NO pain Tolerating diet Dialysis yesterday without difficulty Objective - Vital Signs/Intake and Output Vital Signs (last 24 hours): Temp Pulse Resp BP Pulse Ox 97.9 F 87 20 163/70 H 98 08/20/18 07:00 08/20/18 07:00 08/20/18 07:00 08/20/18 07:00 08/20/18 07:00 - Medications Medications: Current Medications Amlodipine Besylate (Norvasc) 5 mg PO DAILY [facility] Last Admin: 08/20/18 09:03 Dose: 5 mg Apixaban (Eliquis) 2.5 mg PO BID [facility] Last Admin: 08/20/18 09:00 Dose: 2.5 mg Aspirin (Ecotrin) 81 mg PO DAILY [facility] Last Admin: 08/20/18 09:00 Dose: 81 mg Carvedilol (Coreg) 3.125 mg PO BID [facility] Last Admin: 08/20/18 09:01 Dose: 3.125 mg Insulin Aspart (Novolog) 0 unit SC [facility]; Protocol Last Admin: 08/20/18 08:27 Dose: 2 units Levothyroxine Sodium (Synthroid) 50 mcg PO DAILY@0630 [facility] Last Admin: 08/20/18 06:16 Dose: 50 mcg Lisinopril (Zestril) 2.5 mg PO DAILY [facility] Last Admin: 08/19/18 14:03 Dose: 2.5 mg Rosuvastatin Calcium (Crestor) 10 mg PO HS [facility] Last Admin: 08/19/18 22:53 Dose: 10 mg Sevelamer Carbonate (Renvela) 800 mg PO TID [facility] Last Admin: 08/20/18 09:00 Dose: 800 mg - Labs Labs: 08/20/18 07:03 08/20/18 07:03 PT 15.3 SECONDS (9.7-12.2) H 08/16/18 11:18 INR 1.4 08/16/18 11:18 APTT 42 SECONDS (21-34) H 08/16/18 11:18 - Constitutional Appears: Well, Non-toxic - Head Exam Head Exam: ATRAUMATIC, NORMAL INSPECTION - Eye Exam Eye Exam: EOMI, Normal appearance - ENT Exam ENT Exam: Mucous Membranes Moist, Normal Oropharynx - Respiratory Exam Respiratory Exam: absent: Rales, Rhonchi, Wheezes - Cardiovascular Exam Cardiovascular Exam: +S1, +S2. absent: Rubs - GI/Abdominal Exam GI & Abdominal Exam: Soft, Normal Bowel Sounds - Extremities Exam Extremities Exam: absent: Joint Swelling, Pedal Edema - Neurological Exam Neurological Exam: Alert, Awake Assessment and Plan (1) CVA (cerebral vascular accident) Status: Acute (2) ESRD (end stage renal disease) Status: Acute (3) HTN (hypertension), benign Status: Acute (4) DM2 (diabetes mellitus, type 2) Status: Chronic - Assessment and Plan (Free Text) Assessment: Maintain dialysis schedule Next treatment 08/22 Increase bp meds if bp remains elevated - better previously Labs with dialysis PT
--- NOTE | 2018-08-20 10:07 | CP.PCM.PN ---
Subjective - Date & Time of Evaluation Date of Evaluation: 08/20/18 Time of Evaluation: 10:00 - Subjective Subjective: Patient was seen and examined by me He yesterday went for JENARO and according to notes was + ASD, still pending an official report Also the echo bubble study was done as well and pending report This morning he still has the hand weakness as before. He is able to readily raise right arm over his head and right leg 5/5 strength. No facial drooping and no slurred speech Otherwise he remains very pleasant affect, cheerful affect. He had HD last night. Objective - Vital Signs/Intake and Output Vital Signs (last 24 hours): Temp Pulse Resp BP Pulse Ox 97.9 F 87 20 163/70 H 98 08/20/18 07:00 08/20/18 07:00 08/20/18 07:00 08/20/18 07:00 08/20/18 07:00 - Medications Medications: Current Medications Amlodipine Besylate (Norvasc) 5 mg PO DAILY [facility] Last Admin: 08/20/18 09:03 Dose: 5 mg Apixaban (Eliquis) 2.5 mg PO BID [facility] Last Admin: 08/20/18 09:00 Dose: 2.5 mg Aspirin (Ecotrin) 81 mg PO DAILY [facility] Last Admin: 08/20/18 09:00 Dose: 81 mg Carvedilol (Coreg) 3.125 mg PO BID [facility] Last Admin: 08/20/18 09:01 Dose: 3.125 mg Insulin Aspart (Novolog) 0 unit SC [facility]; Protocol Last Admin: 08/20/18 08:27 Dose: 2 units Levothyroxine Sodium (Synthroid) 50 mcg PO DAILY@0630 [facility] Last Admin: 08/20/18 06:16 Dose: 50 mcg Lisinopril (Zestril) 2.5 mg PO DAILY [facility] Last Admin: 08/19/18 14:03 Dose: 2.5 mg Rosuvastatin Calcium (Crestor) 10 mg PO HS [facility] Last Admin: 08/19/18 22:53 Dose: 10 mg Sevelamer Carbonate (Renvela) 800 mg PO TID [facility] Last Admin: 08/20/18 09:00 Dose: 800 mg - Labs Labs: 08/20/18 07:03 08/20/18 07:03 PT 15.3 SECONDS (9.7-12.2) H 08/16/18 11:18 INR 1.4 08/16/18 11:18 APTT 42 SECONDS (21-34) H 08/16/18 11:18 - Constitutional Appears: No Acute Distress - Head Exam Head Exam: NORMAL INSPECTION, NORMOCEPHALIC - Eye Exam Eye Exam: EOMI, Normal appearance - ENT Exam ENT Exam: Mucous Membranes Moist - Respiratory Exam Respiratory Exam: Clear to Ausculation Bilateral, NORMAL BREATHING PATTERN - Cardiovascular Exam Cardiovascular Exam: REGULAR RHYTHM - Neurological Exam Neurological Exam: Alert, Awake Neuro motor strength exam: Left Upper Extremity: 5, Right Upper Extremity: 5 (+ weakness in the R hand as previous), Left Lower Extremity: 5, Right Lower Extremity: 5 - Skin Skin Exam: Normal Color, Warm Assessment and Plan - Assessment and Plan (Free Text) Assessment: 83M found to have a minor CVA Plan: Atrial Septal Defect: S/P JENARO showing an ASD Will follow cardiology recomendations L Basal ganglia CVA -Weakness noted in Extensor Digitorum of R hand -sensation decreased -MRI : L basal ganglia ischemic cva read by neurology -CT w/o contrast- chronic changes no acute findings -ASA 325 daily -crestor 10 HS -MRA : R ICA aneurysm - Vasc Neuro consulted through Dr Howard Raya to evaluate for possible intervention/ monitoring -neg dopplers of LE -Neuro Dr Lawrence consulted recs appreciated -Cardio Dr Garcia consulted JENARO tmrw possible ASD interventional tx tbd Hx CAD s/p CABG (07/2017) Chronic systolic HF, stable -Lisinopril 2.5 BID -Norvasc 5 daily -ASA 325mg STAT then 81 mg PO daily -Eliquis 2.5 mg PO BID -Crestor 10 mg PO HS -Coreg 3.125mg PO daily ESRD on HD MWF 08/20: Had HD last night and did well: Pt goes to [facility] in [place] Renvela 800mg PO [facility], home med DM -HbA1c: 9.4 -ISS -Lantus 30 units SC -accuchecks ACHS -hypoglycemic protocol HTN 08/20: Systolic BPs were in the 160s, if remains elevated like this will probably increase BP meds -Lisinopril 2.5mg PO BID -Coreg 3.125 PO daily -Norvasc 5mg qd Hypothyroidism -Levothyroxine 50mcg PO daily PPx, Diet, Disposition -DVT ppx: SCDs, home eliquis and ASA 325 -GI ppx: not indicated -Diet: HHD, renal diet, NPO past midnight DISPO follow up JENARO results- may need IntCardio procedure for ASD repair
--- NOTE | 2018-08-20 15:04 | CP.PCM.PN ---
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 absent: Accessory Muscle Use, Rales, Rhonchi, Wheezes, Respiratory Distress, Stridor - Cardiovascular Exam Cardiovascular Exam: REGULAR RHYTHM, +S1, +S2 - GI/Abdominal Exam GI & Abdominal Exam: Normal Bowel Sounds, Soft, Unremarkable. absent: Distended, Firm, Pulsatile Mass, Rebound, Rigid, Tenderness - Extremities Exam Extremities exam: normal capillary refill, normal inspection, pedal pulses present - Back Exam Back exam: NORMAL INSPECTION - Neurological Exam Neurological exam: Alert, Oriented x3 Weakness noted in the DIPs L sided extensor digitorums Numbness on all 5 distal phalanges- sensitive to deep pinprick no facial droop noted no tounge / uvual deviation, memory intact, no facial numbness - Skin Skin Exam: Dry, Intact, Normal Color, Warm Assessment & Plan - Assessment and Plan (Free Text) Assessment: TIA vs CVA vs Right sided Radial compression neuropathy -Weakness noted in Extensor Digitorum of L hand -Likely radial nerve compression from tight BP Cuff- clinically improving proximal to distal -f/u MRI to r/o CVA -CT w/o contrast- chronic changes no acute findings -ASA 325 stat Hx CAD s/p CABG (07/2017) Chronic systolic HF, stable -Lisinopril 2.5 BID -Norvasc 5 daily -ASA 325mg STAT then 81 mg PO daily -Eliquis 2.5 mg PO BID -Crestor 10 mg PO HS -Coreg 3.125mg PO daily ESRD on HD MWF - Pt goes to [facility] in [place] -Last dialysis session was on Tuesday 08/15 -Renvela 800mg PO TIDCC, home med DM -HbA1c: 9.4 -ISS -Lantus 30 units SC -accuchecks [facility] -hypoglycemic protocol HTN -Lisinopril 2.5mg PO BID -Coreg 3.125 PO daily -Norvasc 5mg qd Hypothyroidism -Levothyroxine 50mcg PO daily PPx, Diet, Disposition -DVT ppx: SCDs, home eliquis asa81 -GI ppx: not indicated -Diet: HHD, renal diet 83 M with hx of CAD s.p CABG, CRF on HD admitted for CVA ECHO suggestive of ASD with bubble crossover ASD closure as out patient Medical management for now Objective - Vital Signs/Intake and Output Vital Signs (last 24 hours): Temp Pulse Resp BP Pulse Ox 97.9 F 89 20 163/70 H 98 08/20/18 07:00 08/20/18 08:00 08/20/18 07:00 08/20/18 07:00 08/20/18 07:00 - Medications Medications: Current Medications Amlodipine Besylate (Norvasc) 5 mg PO DAILY [facility] Last Admin: 08/20/18 09:03 Dose: 5 mg Apixaban (Eliquis) 2.5 mg PO BID [facility] Last Admin: 08/20/18 09:00 Dose: 2.5 mg Aspirin (Ecotrin) 81 mg PO DAILY [facility] Last Admin: 08/20/18 09:00 Dose: 81 mg Carvedilol (Coreg) 3.125 mg PO BID [facility] Last Admin: 08/20/18 09:01 Dose: 3.125 mg Insulin Aspart (Novolog) 0 unit SC [facility]; Protocol Last Admin: 08/20/18 13:16 Dose: 4 units Levothyroxine Sodium (Synthroid) 50 mcg PO DAILY@0630 [facility] Last Admin: 08/20/18 06:16 Dose: 50 mcg Lisinopril (Zestril) 2.5 mg PO DAILY [facility] Last Admin: 08/20/18 10:06 Dose: 2.5 mg Rosuvastatin Calcium (Crestor) 10 mg PO HS [facility] Last Admin: 08/19/18 22:53 Dose: 10 mg Sevelamer Carbonate (Renvela) 800 mg PO TID [facility] Last Admin: 08/20/18 13:10 Dose: 800 mg - Labs Labs: 08/20/18 07:03 08/20/18 07:03 PT 15.3 SECONDS (9.7-12.2) H 08/16/18 11:18 INR 1.4 08/16/18 11:18 APTT 42 SECONDS (21-34) H 08/16/18 11:18
[2018-08-21] MEDS: Levothyroxine 50 MCG TAB PO SCH (05:58)
[2018-08-21] MEDS: (Novolog) Insulin Aspart, Recombinant 100 u/ml 10 ml vial SC SCH ×4 (08:10→21:48)
[2018-08-21 08:15] LABS: BASO # 0.1 K/uL (0.0-0.2); BASO % 0.9 % (0.0-2.0); EOS # 0.3 K/uL (0.0-0.7); EOS % 3.1 % (0.0-4.0); HEMOGLOBIN 12.8 g/dL (12.0-18.0); LYMPH # 2.8 K/uL (1.0-4.3); MEAN CELL VOLUME 101.1 fL (80.0-94.0); MEAN CORPUSCULAR HEMOGLOBIN 35.6 pg (27.0-31.0); MEAN CORPUSCULAR HGB CONC 35.2 g/dL (33.0-37.0); MEAN PLATELET VOLUME 8.2 fL (7.2-11.7); MONO # 0.8 K/uL (0.0-0.8); MONO % 9.4 % (0.0-10.0); NEUT # 4.8 K/uL (1.8-7.0); NEUT % 54.6 % (50.0-75.0); RBC 3.6 Mil/uL (4.40-5.90); RED CELL DISTRIBUTION WIDTH 14.1 % (11.5-14.5); WHITE BLOOD COUNT 8.9 K/uL (4.8-10.8)
--- NOTE | 2018-08-21 08:38 | CP.PCM.PN ---
Subjective - Date & Time of Evaluation Date of Evaluation: 08/21/18 Time of Evaluation: 08:15 - Subjective Subjective: Patient was seen and examined by me The patient has had a JENARO and reported to have an ASD with bubble cross over R to L. Per cardiology will need an ASD colsure at some point outpatient. Patient is on Eliquis I walked the patient around the entire floor today with nursing. His telemetry is in the 90s during walking around. Besides the ongoing R hand weakness he was able to walk slowly around with minimal assistance. PT is recomending NAYA per most recent notes and case workers have spoken to family about NAYA. Maybe tommorow Wednesday if he get accepted. Objective - Vital Signs/Intake and Output Vital Signs (last 24 hours): Temp Pulse Resp BP Pulse Ox 98.3 F 80 20 114/52 L 97 08/20/18 23:20 08/21/18 00:00 08/20/18 23:20 08/20/18 23:20 08/20/18 23:20 - Medications Medications: Current Medications Amlodipine Besylate (Norvasc) 5 mg PO DAILY [facility] Last Admin: 08/20/18 09:03 Dose: 5 mg Apixaban (Eliquis) 2.5 mg PO BID [facility] Last Admin: 08/20/18 17:29 Dose: 2.5 mg Aspirin (Ecotrin) 81 mg PO DAILY [facility] Last Admin: 08/20/18 09:00 Dose: 81 mg Carvedilol (Coreg) 3.125 mg PO BID [facility] Last Admin: 08/20/18 17:31 Dose: 3.125 mg Influenza Virus Vaccine (Flucelvax Quad [id number] Syr) 60 mcg IM .ONCE ONE Stop: 08/23/18 10:01 Insulin Aspart (Novolog) 0 unit SC [facility]; Protocol Last Admin: 08/21/18 08:10 Dose: 3 units Levothyroxine Sodium (Synthroid) 50 mcg PO DAILY@0630 [facility] Last Admin: 08/21/18 05:58 Dose: 50 mcg Lisinopril (Zestril) 2.5 mg PO DAILY [facility] Last Admin: 08/20/18 10:06 Dose: 2.5 mg Pneumococcal Polyvalent Vaccine (Pneumovax 23 Vaccine) 0.5 ml IM .ONCE ONE Stop: 08/23/18 10:01 Rosuvastatin Calcium (Crestor) 10 mg PO HS [facility] Last Admin: 08/20/18 21:22 Dose: 10 mg Sevelamer Carbonate (Renvela) 800 mg PO TID [facility] Last Admin: 08/20/18 17:28 Dose: 800 mg - Labs Labs: 08/21/18 07:01 08/20/18 07:03 PT 15.3 SECONDS (9.7-12.2) H 08/16/18 11:18 INR 1.4 08/16/18 11:18 APTT 42 SECONDS (21-34) H 08/16/18 11:18 - Constitutional Appears: Well, Non-toxic - Head Exam Head Exam: NORMAL INSPECTION, NORMOCEPHALIC - Eye Exam Eye Exam: EOMI, Normal appearance - ENT Exam ENT Exam: Mucous Membranes Moist - Cardiovascular Exam Cardiovascular Exam: REGULAR RHYTHM - GI/Abdominal Exam GI & Abdominal Exam: Soft, Normal Bowel Sounds - Neurological Exam Neurological Exam: Alert, Awake, Oriented x3 Neuro motor strength exam: Right Upper Extremity: 5 (Right hand weakness as mentioned previously has minimal grasp) - Psychiatric Exam Psychiatric exam: Normal Affect, Normal Mood - Skin Skin Exam: Normal Color, Warm Assessment and Plan - Assessment and Plan (Free Text) Assessment: 83M found to have a minor CVA Plan: Atrial Septal Defect: S/P JENARO showing an ASD with bubble cross over from right to left. Per cardiology will need outpatient ASD closure Patient is on Eliquis at this time. Basal ganglia CVA -Weakness noted in Extensor Digitorum of R hand -sensation decreased -MRI : L basal ganglia ischemic cva read by neurology -CT w/o contrast- chronic changes no acute findings -ASA 325 daily -crestor 10 HS -MRA : R ICA aneurysm - Vasc Neuro consulted through Dr Howard Raya to evaluate for possible intervention/ monitoring -neg dopplers of LE -Neuro Dr Lawrence consulted recs appreciated -Cardio Dr Garcia consulted JENARO tmrw possible ASD interventional tx tbd Hx CAD s/p CABG (07/2017) Chronic systolic HF, stable -Lisinopril 2.5 BID -Norvasc 5 daily -ASA 325mg STAT then 81 mg PO daily -Eliquis 2.5 mg PO BID -Crestor 10 mg PO HS -Coreg 3.125mg PO daily ESRD on HD MW 08/20: Had HD last night and did well: Pt goes to [facility] in [place] Renvela 800mg PO TIDCC, home med DM -HbA1c: 9.4 -ISS -Lantus 30 units SC -accuchecks [facility] -hypoglycemic protocol HTN 08/21: Now much improved, continue to monitor 08/20: Systolic BPs were in the 160s, if remains elevated like this will probably increase BP meds -Lisinopril 2.5mg PO BID -Coreg 3.125 PO daily -Norvasc 5mg qd Hypothyroidism -Levothyroxine 50mcg PO daily PPx, Diet, Disposition -DVT ppx: SCDs, home eliquis and ASA 325 -GI ppx: not indicated -Diet: HHD, renal diet, NPO past midnight Disposition: Patient can go to [facility] when accepted. He will need to follow up with cardiology outpatient for eventual closure of the ASD.
[2018-08-21 08:42] LABS: ALB/GLOB RATIO 1.4 (1.0-2.1); ALBUMIN 3.5 g/dL (3.5-5.0); CALCIUM 8.7 mg/dl (8.6-10.4)
--- NOTE | 2018-08-21 09:01 | CARD ---
APPROVED REPORT Date of service: 08/19/2018 EXAM: Transesophageal echocardiogram with color flow Doppler. INDICATION CVA/TIA Mitral Valve E/A ratio0.0 TDI E/Lateral E'0.0E/Medial E'0.0 Reason For Test : Rule out cardiac source of emboli. PROCEDURE After obtaining informed consent, patient underwent transesophageal echo in the [employer]. Type of Sedation : Conscious Sedation Sedation was provided by anesthesiologist. Sedation was achieved with intravenously. The JENARO was performed complications. Throughout the procedure, the blood pressure, pulse oximetry, cardiac rhythm, and rate were monitored. The patient tolerated the procedure without adverse effects. Recovery from conscious sedation was uneventful and vital signs were stable. LEFT VENTRICLE There is mild to moderate concentric left ventricular hypertrophy. The left ventricular function is normal. The left ventricular ejection fraction is within the normal range. No left ventricle thrombus noted on this study. There is no ventricular septal defect visualized. RIGHT VENTRICLE The right ventricle is normal size. The right ventricular systolic function is normal. ATRIA The left atrium size is normal. The right atrium size is normal. There is inter atrial septal defect with bubble crossover from Right to left AORTIC VALVE The aortic valve is moderately thickened. There is mild aortic regurgitation. There is no aortic valvular stenosis. There is no aortic valvular vegetation. 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 There is no mitral valve stenosis. Mitral regurgitation is mild to moderate. TRICUSPID VALVE The tricuspid valve is normal in structure. There is mild to moderate tricuspid regurgitation. There is no tricuspid valve prolapse or vegetation. There is no tricuspid valve stenosis. PULMONIC VALVE The pulmonary valve is normal in structure. There is no pulmonic valvular regurgitation. There is no pulmonic valvular stenosis. GREAT VESSELS The aortic root is normal in size. <Conclusion> The left ventricular function is normal. The left ventricular ejection fraction is within the normal range. 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 There is inter atrial septal defect with bubble crossover from Right to left
--- NOTE | 2018-08-21 22:20 | CP.PCM.PN ---
Subjective - Date & Time of Evaluation Date of Evaluation: 08/21/18 Time of Evaluation: 15:15 - Subjective Subjective: Patient with no cardiac events Continue current meds ASD closure as out patient Objective - Vital Signs/Intake and Output Vital Signs (last 24 hours): Temp Pulse Resp BP Pulse Ox 97.4 F L 82 20 130/62 96 08/21/18 15:00 08/21/18 17:19 08/21/18 15:00 08/21/18 17:19 08/21/18 15:00 - Medications Medications: Current Medications Amlodipine Besylate (Norvasc) 5 mg PO DAILY [facility] Last Admin: 08/21/18 10:18 Dose: 5 mg Apixaban (Eliquis) 2.5 mg PO BID [facility] Last Admin: 08/21/18 17:17 Dose: 2.5 mg Aspirin (Ecotrin) 81 mg PO DAILY [facility] Last Admin: 08/21/18 10:18 Dose: 81 mg Carvedilol (Coreg) 3.125 mg PO BID [facility] Last Admin: 08/21/18 17:17 Dose: 3.125 mg Influenza Virus Vaccine (Flucelvax Quad [id number] Syr) 60 mcg IM .ONCE ONE Stop: 08/23/18 10:01 Insulin Aspart (Novolog) 0 unit SC [facility]; Protocol Last Admin: 08/21/18 21:48 Dose: Not Given Levothyroxine Sodium (Synthroid) 50 mcg PO DAILY@0630 [facility] Last Admin: 08/21/18 05:58 Dose: 50 mcg Lisinopril (Zestril) 2.5 mg PO DAILY [facility] Last Admin: 08/21/18 10:17 Dose: 2.5 mg Pneumococcal Polyvalent Vaccine (Pneumovax 23 Vaccine) 0.5 ml IM .ONCE ONE Stop: 08/23/18 10:01 Rosuvastatin Calcium (Crestor) 10 mg PO HS [facility] Last Admin: 08/21/18 21:18 Dose: 10 mg Sevelamer Carbonate (Renvela) 800 mg PO TID [facility] Last Admin: 08/21/18 17:17 Dose: 800 mg - Labs Labs: 08/21/18 07:01 08/21/18 07:01 PT 15.3 SECONDS (9.7-12.2) H 08/16/18 11:18 INR 1.4 08/16/18 11:18 APTT 42 SECONDS (21-34) H 08/16/18 11:18
[2018-08-22] MEDS: Levothyroxine 50 MCG TAB PO SCH (06:10)
[2018-08-22 06:45] LABS: BASO % 0.6 % (0.0-2.0); EOS # 0.3 K/uL (0.0-0.7); EOS % 3.5 % (0.0-4.0); HEMOGLOBIN 12.1 g/dL (12.0-18.0); LYMPH # 2.9 K/uL (1.0-4.3); LYMPH % 33.2 % (20.0-40.0); MEAN CELL VOLUME 100.8 fL (80.0-94.0); MEAN CORPUSCULAR HEMOGLOBIN 34.1 pg (27.0-31.0); MEAN CORPUSCULAR HGB CONC 33.9 g/dL (33.0-37.0); MEAN PLATELET VOLUME 7.9 fL (7.2-11.7); MONO # 0.8 K/uL (0.0-0.8); NEUT # 4.7 K/uL (1.8-7.0); NEUT % 53.7 % (50.0-75.0); RBC 3.54 Mil/uL (4.40-5.90); RED CELL DISTRIBUTION WIDTH 14.1 % (11.5-14.5); WHITE BLOOD COUNT 8.8 K/uL (4.8-10.8)
[2018-08-22 06:49] LABS: ALB/GLOB RATIO 1.5 (1.0-2.1); ALBUMIN 3.4 g/dL (3.5-5.0); CALCIUM 8.5 mg/dl (8.6-10.4)
[2018-08-22 07:47] VITALS: O2SAT 97
--- NOTE | 2018-08-22 07:52 | CP.PCM.PN ---
Subjective - Date & Time of Evaluation Date of Evaluation: 08/22/18 Time of Evaluation: 07:52 - Subjective Subjective: PGY-1 Medicine Progress Note for Dr. Justice Objective - Vital Signs/Intake and Output Vital Signs (last 24 hours): Temp Pulse Resp BP Pulse Ox 98.1 F 66 20 151/47 H 97 08/22/18 07:00 08/22/18 07:00 08/22/18 07:00 08/22/18 07:00 08/22/18 07:00 - Medications Medications: Current Medications Amlodipine Besylate (Norvasc) 5 mg PO DAILY [facility] Last Admin: 08/21/18 10:18 Dose: 5 mg Apixaban (Eliquis) 2.5 mg PO BID [facility] Last Admin: 08/21/18 17:17 Dose: 2.5 mg Aspirin (Ecotrin) 81 mg PO DAILY [facility] Last Admin: 08/21/18 10:18 Dose: 81 mg Carvedilol (Coreg) 3.125 mg PO BID [facility] Last Admin: 08/21/18 17:17 Dose: 3.125 mg Influenza Virus Vaccine (Flucelvax Quad [id number] Syr) 60 mcg IM .ONCE ONE Stop: 08/23/18 10:01 Insulin Aspart (Novolog) 0 unit SC [facility]; Protocol Last Admin: 08/21/18 21:48 Dose: Not Given Levothyroxine Sodium (Synthroid) 50 mcg PO DAILY@0630 [facility] Last Admin: 08/22/18 06:10 Dose: 50 mcg Lisinopril (Zestril) 2.5 mg PO DAILY [facility] Last Admin: 08/21/18 10:17 Dose: 2.5 mg Pneumococcal Polyvalent Vaccine (Pneumovax 23 Vaccine) 0.5 ml IM .ONCE ONE Stop: 08/23/18 10:01 Rosuvastatin Calcium (Crestor) 10 mg PO HS [facility] Last Admin: 08/21/18 21:18 Dose: 10 mg Sevelamer Carbonate (Renvela) 800 mg PO TID [facility] Last Admin: 08/21/18 17:17 Dose: 800 mg - Labs Labs: 08/22/18 06:22 08/22/18 06:22 PT 15.3 SECONDS (9.7-12.2) H 08/16/18 11:18 INR 1.4 08/16/18 11:18 APTT 42 SECONDS (21-34) H 08/16/18 11:18
--- NOTE | 2018-08-22 08:11 | CP.PCM.DIS ---
Provider - Provider Date of Admission: 08/19/18 10:40 Attending physician: Mahad Casey DO Consults: 08/16/18 23:12 Nephrology Consult Routine Comment: Consulting Provider: Michele Cain Consulting Physician: Michele Cain Reason for Consult: esrd, dialysis patient, receives mwf 08/17/18 14:20 Neurology Consult Routine Comment: Consulting Provider: Esteban Lawrence Consulting Physician: Esteban Lawrence Reason for Consult: acute stroke seen on MRI 08/17/18 15:23 Cardiology Consult Routine Comment: Consulting Provider: Roger Garcia Consulting Physician: Roger Garcia Reason for Consult: Septal defect on past echo, s/p ischemic CVA 08/18/18 16:17 Neurointerventional consult Routine Consulting Provider: Liam Jackson Consulting Physician: Liam Jackson Reason for Consult: rt. ica aneurysmal dilation; Dr Jackson made aware by me al ready Time Spent in preparation of Discharge (in minutes): 40 Diagnosis - Discharge Diagnosis (1) Weakness of upper extremity Status: Acute (2) CVA (cerebral vascular accident) Status: Acute (3) ESRD (end stage renal disease) Status: Chronic (4) CAD (coronary artery disease) Status: Chronic (5) DM2 (diabetes mellitus, type 2) Status: Chronic (6) HTN (hypertension) Status: Chronic Hospital Course - Lab Results Lab Results: Most Recent Lab Values WBC 8.8 K/uL (4.8-10.8) 08/22/18 06:22 RBC 3.54 Mil/uL (4.40-5.90) L 08/22/18 06:22 Hgb 12.1 g/dL (12.0-18.0) 08/22/18 06:22 Hct 35.7 % (35.0-51.0) 08/22/18 06:22 MCV 100.8 fL (80.0-94.0) H 08/22/18 06:22 MCH 34.1 pg (27.0-31.0) H 08/22/18 06:22 MCHC 33.9 g/dL (33.0-37.0) 08/22/18 06:22 RDW 14.1 % (11.5-14.5) 08/22/18 06:22 Plt Count 188 K/uL (130-400) 08/22/18 06:22 MPV 7.9 fL (7.2-11.7) 08/22/18 06:22 Neut % (Auto) 53.7 % (50.0-75.0) 08/22/18 06:22 Lymph % (Auto) 33.2 % (20.0-40.0) 08/22/18 06:22 [place] % (Auto) 9.0 % (0.0-10.0) 08/22/18 06:22 Eos % (Auto) 3.5 % (0.0-4.0) 08/22/18 06:22 Baso % (Auto) 0.6 % (0.0-2.0) 08/22/18 06: Neut # (Auto) 4.7 K/uL (1.8-7.0) 08/22/18 06:22 Lymph # (Auto) 2.9 K/uL (1.0-4.3) 08/22/18 06:22 [place] # (Auto) 0.8 K/uL (0.0-0.8) 08/22/18 06:22 Eos # (Auto) 0.3 K/uL (0.0-0.7) 08/22/18 06:22 Baso # (Auto) 0.0 K/uL (0.0-0.2) 08/22/18 06:22 PT 15.3 SECONDS (9.7-12.2) H 08/16/18 11:18 INR 1.4 08/16/18 11:18 APTT 42 SECONDS (21-34) H 08/16/18 11:18 Sodium 130 mmol/L (132-148) L 08/22/18 06:22 Potassium 4.7 mmol/L (3.6-5.2) 08/22/18 06:22 Chloride 96 mmol/L (98-107) L 08/22/18 06:22 Carbon Dioxide 27 mmol/L (22-30) 08/22/18 06:22 Anion Gap 13 (10-20) 08/22/18 06:22 BUN 62 mg/dL (9-20) H 08/22/18 06:22 Creatinine 4.9 mg/dL (0.8-1.5) H 08/22/18 06:22 Est GFR ( Amer) 14 08/22/18 06:22 Est GFR (Non-Af Amer) 11 08/22/18 06:22 POC Glucose (mg/dL) 286 mg/dL (65-110) H 08/22/18 06:09 Random Glucose 276 mg/dL (75-110) H D 08/22/18 06:22 Hemoglobin A1c 7.6 % (4.2-6.5) H 08/18/18 16:04 Calcium 8.5 mg/dl (8.6-10.4) L 08/22/18 06:22 Phosphorus 4.5 mg/dL (2.5-4.5) 08/22/18 06:22 Magnesium 2.5 mg/dL (1.6-2.3) H 08/22/18 06:22 Total Bilirubin 0.3 mg/dL (0.2-1.3) 08/22/18 06:22 AST 11 U/L (17-59) L D 08/22/18 06:22 ALT 8 U/L (21-72) L 08/22/18 06:22 Alkaline Phosphatase 68 U/L (38-126) 08/22/18 06:22 Total Creatine Kinase 31 U/L (55-170) L 08/16/18 11:18 CK-MB (Mass) 0.79 ng/mL (0.0-3.38) 08/16/18 11:18 Troponin I < 0.0120 ng/mL (0.00-0.120) 08/16/18 11:18 Total Protein 5.7 g/dL (6.3-8.3) L 08/22/18 06:22 Albumin 3.4 g/dL (3.5-5.0) L 08/22/18 06:22 Globulin 2.3 gm/dL (2.2-3.9) 08/22/18 06:22 Albumin/Globulin Ratio 1.5 (1.0-2.1) 08/22/18 06:22 Triglycerides 150 mg/dL (0-149) H D 08/18/18 16:05 Cholesterol 103 mg/dL (0-199) 08/18/18 16:05 LDL Cholesterol Direct 37 mg/dL (0-129) 08/18/18 16:05 HDL Cholesterol 40 mg/dL (30-70) 08/18/18 16:05 Urine Color Yellow (YELLOW) 08/16/18 12:32 Urine Clarity Clear (Clear) 08/16/18 12:32 Urine pH 8.0 (5.0-8.0) 08/16/18 12:32 Ur Specific Samson 1.014 (1.003-1.030) 08/16/18 12:32 Urine Protein 3+ mg/dL (NEGATIVE) H 08/16/18 12:32 Urine Glucose (UA) 3+ mg/dL (Normal) H 08/16/18 12:32 Urine Ketones Negative mg/dL (NEGATIVE) 08/16/18 12:32 Urine Blood Negative (NEGATIVE) 08/16/18 12:32 Urine Nitrate Negative (NEGATIVE) 08/16/18 12:32 Urine Bilirubin Negative (NEGATIVE) 08/16/18 12:32 Urine Urobilinogen Normal mg/dL (0.2-1.0) 08/16/18 12:32 Ur Leukocyte Esterase Neg Lambert/uL (Negative) 08/16/18 12:32 Urine WBC (Auto) < 1 /hpf (0-5) 08/16/18 12:32 Urine RBC (Auto) 3 /hpf (0-3) 08/16/18 12:32 Ur Squamous Epith Cells 1 /hpf (0-5) 08/16/18 12:32 Urine Bacteria Rare (<OCC) 08/16/18 12:32 - Hospital Course Hospital Course: HPI: Patient is an 83 year old male who presents with a one day history of right arm weakness after hemodialysis the day prior to admission. Patient states his BP cuff was on very tight and believes that when he called to the dialysis staff, they did not understand him. Patient said when he was done dialyzing his arm felt numb and weak from the distal humerus down. He went home because he thought it was just from the cuff; however the next morning the deficits remained- prompting him to come to the ED. At this time, the patient feels he is regaining strength and sensation in the forearm and he is able to flex at the elbow, he is now able to palmar flex and to flex the digits at the MTP and DIP joints. Patient reports his sensation has returned all the way down to the DIP joints in all 5 digits. During the course of admission: MRI of the brain obtained revealed a late acute on subacute infarct of the left posterior myers radiata and posterior superior basal ganglia. Chronic lacunar infarction was also noted in the left posterior inferior basal ganglia, with chronic microangiopathic changes and age-related global parenchymal volume loss. A stable 1.5 x 1.4 cm round extra-axial mass was found in the right cerebellopontine angle cistern, most likely compatible with a meningioma. 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 Neurology (Dr. Lawrence) was consulted, with subsequent Neurointervential consultation (Dr. Jackson) for aneurysmal dilation findings. Patient was continued on aspirin, statin, and home eliquis. Cardiology (Dr. Garcia) was consulted and transesophageal echocardiogram was performed, demonstrating an atrial septal defect with bubble cross from right to left. Patient will need ASD closure at some point in the future, though not imminent per Dr. Garcia. Patient was recommended to follow up with Cardiology in the outpatient setting. Nephrology (Dr. Cain) was consulted given history on ESRD on hemodialysis, and patient successfully underwent dialysis sessions during hospital course. 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 Patient is medically stable for discharge to [facility] for subacute rehabilitation, as per Dr. Justice. Patient to continue all home medications as prescribed. Based on echocardiogram findings, patient will need outpatient follow up with Cardiology (Dr. Garcia) for closure of atrial septal defect at some point, though not imminent per recommendations. Please follow up with Neurology (Dr. Jackson) within 3-5 days of discharge for further monitoring and care of aneurysm findings on MRA. Patient is currently stable and does not require emergent intervention, per Neurology. Please also follow up with your primary care provider (Dr. Prajapati) for management of all chronic medical conditions. If symptoms worsen or recur, please return to ED immediately. - Date & Time of H&P Date of H&P: 08/22/18 Time of H&P: 13:11 Discharge Exam - Head Exam Head Exam: ATRAUMATIC, NORMAL INSPECTION, NORMOCEPHALIC - Eye Exam Eye Exam: EOMI, Normal appearance, PERRL Pupil Exam: NORMAL ACCOMODATION - ENT Exam ENT Exam: Mucous Membranes Moist, Normal Exam - Neck Exam Neck exam: Full Rom, Normal Inspection - Respiratory Exam Respiratory Exam: Clear to PA & Lateral, NORMAL BREATHING PATTERN, UNREMARKABLE. absent: Accessory Muscle Use, Respiratory Distress - Cardiovascular Exam Cardiovascular Exam: REGULAR RHYTHM, +S1, +S2 - GI/Abdominal Exam GI & Abdominal Exam: Normal Bowel Sounds, Soft, Unremarkable. absent: Distended, Firm, Guarding, Hernia, Rebound, Tenderness - Extremities Exam Extremities exam: normal capillary refill, normal inspection, pedal pulses present - Neurological Exam Neurological exam: Alert, CN II-XII Intact, Oriented x3 Additional comments: Right hand weakness as mentioned previously has minimal grasp - Skin Skin Exam: Dry, Intact, Normal Color, Warm Discharge Plan - Discharge Medications Prescriptions: Apixaban [Eliquis] 2.5 mg PO BID #14 tab Aspirin [Ecotrin] 81 mg PO DAILY #14 tabec Carvedilol [Coreg] 3.125 mg PO BID #14 tab Doxylamine Succinate [Unisom Sleep Aid] 25 mg PO HS #14 tablet Levothyroxine Sodium 50 mcg PO DAILY #14 tablet Lisinopril [Zestril] 2.5 mg PO DAILY #14 tab Sevelamer Carbonate [Renvela] 800 mg PO TID #21 tab - Follow Up Plan Condition: FAIR Disposition: REHAB FACILITY/REHAB UNIT Instructions: Stroke (DC), Generalized Weakness (DC), End Stage Kidney Disease (DC), Dialysis and Diet Additional Instructions: Patient is medically stable for discharge to [facility] for subacute rehabilitation, as per Dr. Justice. Patient to continue all home medications as prescribed. Based on echocardiogram findings, patient will need outpatient follow up with Cardiology (Dr. Garcia) for closure of atrial septal defect at some point, though not imminent per recommendations. Please follow up with Neurology (Dr. Jackson) within 3-5 days of discharge for further monitoring and care of aneurysm findings on MRA. Patient is currently stable and does not require emergent intervention, per Neurology. Please also follow up with your primary care provider (Dr. Prajapati) for management of all chronic medical conditions. If symptoms worsen or recur, please return to ED immediately. El paciente es mdicamente estable para el johnnie en [facility] para rehabilitacin subaguda, segn el Dr. Justice. Paciente para continuar todos los medicamentos caseros segn lo prescrito. Segn los hallazgos del ecocardiograma, el paciente necesitar un seguimiento ambulatorio con cardiologa (Dr. Garcia) para el cierre del defecto del tabique auricular en algn momento, aunque no es inminente segn las recomendaciones. Por favor, sam un seguimiento con Neurology (Dr. Jackson) dentro de los 3 a 5 sapp despus del johnnie hospitalaria para un mayor seguimiento y cuidado de los hallazgos de aneurismas en la ERM. El paciente se encuentra actualmente estable y no requiere intervencin de emergencia, segn Neurologa. Woo sam un seguimiento con abel proveedor de atencin primaria (Dr. Prajapati) para el trata miento de todas las afecciones mdicas crnicas. Si los sntomas empeoran o reaparecen, regrese inmediatamente a la [place]. Referrals: Liam Jackson MD [Staff Provider] - Roger Garcia MD [Staff Provider] - Carol Granger MD [Medical Doctor] - Michele Cain MD [Staff Provider] - Mehnaz John DPM [Staff Provider] - Kristie Rizo MD [Staff Provider] -
[2018-08-22] MEDS: (Novolog) Insulin Aspart, Recombinant 100 u/ml 10 ml vial SC SCH ×2 (08:24→13:29)
[2018-08-22 09:57] VITALS: PULSE 81; RESP 16; TEMP 97.8
--- NOTE | 2018-08-22 11:54 | CP.PCM.PN ---
Subjective - Date & Time of Evaluation Date of Evaluation: 08/22/18 Time of Evaluation: 11:52 - Subjective Subjective: Seen at dialysis Tolerating treatment well UF 2300ml on anticoagulation right hemiparesis mild possible discharge soon Cleared by cardio Objective - Vital Signs/Intake and Output Vital Signs (last 24 hours): Temp Pulse Resp BP Pulse Ox 97.8 F 81 16 127/55 L 97 08/22/18 08:50 08/22/18 08:50 08/22/18 08:40 08/22/18 11:20 08/22/18 08:50 - Medications Medications: Current Medications Amlodipine Besylate (Norvasc) 5 mg PO DAILY [facility] Last Admin: 08/21/18 10:18 Dose: 5 mg Apixaban (Eliquis) 2.5 mg PO BID [facility] Last Admin: 08/21/18 17:17 Dose: 2.5 mg Aspirin (Ecotrin) 81 mg PO DAILY [facility] Last Admin: 08/21/18 10:18 Dose: 81 mg Carvedilol (Coreg) 3.125 mg PO BID [facility] Last Admin: 08/21/18 17:17 Dose: 3.125 mg Influenza Virus Vaccine (Flucelvax Quad [id number] Syr) 60 mcg IM .ONCE ONE Stop: 08/23/18 10:01 Insulin Aspart (Novolog) 0 unit SC [facility]; Protocol Last Admin: 08/22/18 08:24 Dose: 4 units Levothyroxine Sodium (Synthroid) 50 mcg PO DAILY@0630 [facility] Last Admin: 08/22/18 06:10 Dose: 50 mcg Lisinopril (Zestril) 2.5 mg PO DAILY [facility] Last Admin: 08/21/18 10:17 Dose: 2.5 mg Pneumococcal Polyvalent Vaccine (Pneumovax 23 Vaccine) 0.5 ml IM .ONCE ONE Stop: 08/23/18 10:01 Rosuvastatin Calcium (Crestor) 10 mg PO HS [facility] Last Admin: 08/21/18 21:18 Dose: 10 mg Sevelamer Carbonate (Renvela) 800 mg PO TID [facility] Last Admin: 08/21/18 17:17 Dose: 800 mg - Labs Labs: 08/22/18 06:22 08/22/18 06:22 PT 15.3 SECONDS (9.7-12.2) H 03/19/19 11:18 INR 1.4 08/16/18 11:18 APTT 42 SECONDS (21-34) H 08/16/18 11:18 - Constitutional Appears: No Acute Distress, Chronically Ill - Head Exam Head Exam: ATRAUMATIC, NORMAL INSPECTION - Eye Exam Eye Exam: EOMI, Normal appearance - Neck Exam Neck Exam: Normal Inspection. absent: Tenderness - Respiratory Exam Respiratory Exam: Clear to Ausculation Bilateral, NORMAL BREATHING PATTERN - Cardiovascular Exam Cardiovascular Exam: REGULAR RHYTHM, +S1 - GI/Abdominal Exam GI & Abdominal Exam: Soft. absent: Tenderness - Extremities Exam Extremities Exam: Normal Inspection. absent: Tenderness - Neurological Exam Neurological Exam: Awake, Motor Sensory Deficit - Skin Skin Exam: Dry, Warm Assessment and Plan (1) CVA (cerebral vascular accident) Status: Acute (2) ESRD (end stage renal disease) Status: Chronic (3) CAD (coronary artery disease) Status: Chronic (4) HTN (hypertension), benign Status: Acute - Assessment and Plan (Free Text) Plan: Same meds Dialysis MWF Disposition as per medicine
[2018-08-22 12:39] VITALS: BP 108/58
[2018-08-23] MEDS ORDERED: Pneumococcal 23-Valent Vaccine IM ONE (10:00)
[2018-08-23] MEDS ORDERED: Influenza Vaccine 60 mcg/0.5 mL SYR (4YR UP) IM ONE (10:00)
== END 2018-08-22 16:22 | DRG 64 ==
LOC: C.ER 09:56 → C.9E 14:35 → C.6T 19:39 → OBSVTOIN 08-19 10:40
PROVIDERS: ADMIT Hospitalist; ATTEND Hospitalist
PROC: 5A1D70Z Performance of Urinary Filtration, Intermittent, Less than 6 Hours Per Day (ICD-10-PCS; principal; 2018-08-17)
PROC: 5A1D70Z Performance of Urinary Filtration, Intermittent, Less than 6 Hours Per Day (ICD-10-PCS; 2018-08-19)
PROC: 5A1D70Z Performance of Urinary Filtration, Intermittent, Less than 6 Hours Per Day (ICD-10-PCS; 2018-08-22)
DX: I63.81 Other cerebral infarction due to occlusion or stenosis of small artery (principal); N18.6 End stage renal disease; I50.22 Chronic systolic (congestive) heart failure; G81.91 Hemiplegia, unspecified affecting right dominant side; I13.2 Hypertensive heart and chronic kidney disease with heart failure and with stage 5 chronic kidney disease, or end stage renal disease; E11.21 Type 2 diabetes mellitus with diabetic nephropathy; I48.91 Unspecified atrial fibrillation; J44.9 Chronic obstructive pulmonary disease, unspecified; Q21.1 Atrial septal defect; D32.9 Benign neoplasm of meninges, unspecified; E03.9 Hypothyroidism, unspecified; I67.2 Cerebral atherosclerosis; E11.22 Type 2 diabetes mellitus with diabetic chronic kidney disease; E11.41 Type 2 diabetes mellitus with diabetic mononeuropathy; J32.2 Chronic ethmoidal sinusitis; E11.51 Type 2 diabetes mellitus with diabetic peripheral angiopathy without gangrene; I25.10 Atherosclerotic heart disease of native coronary artery without angina pectoris; E78.00 Pure hypercholesterolemia, unspecified; Z95.1 Presence of aortocoronary bypass graft; Z87.74 Personal history of (corrected) congenital malformations of heart and circulatory system; Z86.73 Personal history of transient ischemic attack (TIA), and cerebral infarction without residual deficits; Z99.2 Dependence on renal dialysis; Z79.01 Long term (current) use of anticoagulants; Z79.4 Long term (current) use of insulin; Z79.82 Long term (current) use of aspirin; Z79.890 Hormone replacement therapy; Z79.899 Other long term (current) drug therapy; Z83.3 Family history of diabetes mellitus